=== PATIENT | female | born 1975 | race Caucasian/White ===

== ENCOUNTER 2021-07-10 11:43 | Outpatient (REF) | payer MEDICAID, SELFPAY ==
--- NOTE | ~2021-07-10 | MM_ITS ---
EXAMINATION: MM SCREENING DIGITAL BREAST TOMOSYNTHESIS, BILATERAL CLINICAL INFORMATION: Screening. Asymptomatic. No prior breast imaging. Age 45. The lifetime risk of breast cancer based on the Tyrer-Cuzick Model is 9%. COMPARISON: None (current study represents initial baseline exam). TECHNIQUE: Digital breast tomosynthesis is performed in both the craniocaudal and mediolateral oblique views along with computer-aided detection (CAD). Synthesized 2D images are generated from the tomosynthesis. Additional right cleavage view is provided. Technologist notes technically challenging for positioning. Exam optimized to patient capabilities. FINDINGS: There are scattered areas of fibroglandular density (ACR BI-RADS breast composition Category b). There are no significant masses, abnormal calcifications, or other abnormalities. The axilla and skin contours are unremarkable. MM/MM tomosynthesis screening BI IMPRESSION: No mammographic evidence of malignancy. ASSESSMENT: BI-RADS 1: Negative RECOMMENDATION: Routine annual mammography screening. This patient's information was entered into a reminder system with a target due date for their next mammogram.
== END 2021-07-10 11:44 | disposition home or self-care (01) ==
LOC: HO.MAMMO 11:43
PROVIDERS: Visit Provider Advanced Practice Midwife
DX: Z12.31 Encounter for screening mammogram for malignant neoplasm of breast (principal)
CPT/HCPCS: 77063; 77067

== ENCOUNTER 2022-03-07 08:17 | Inpatient (IN) | payer MEDICAID, SELFPAY ==
[2022-03-07] VITALS (7 sets, daily range): BP systolic 100–144; BP diastolic 45–86; PULSE 95–118; RESP 14–20; TEMP 36–36.9; O2SAT 96–98; BMI 43.2
--- NOTE | ~2022-03-07 | CT_ITS ---
EXAMINATION: CT FACIAL BONES WITH CONTRAST CLINICAL INFORMATION: Right facial/neck swelling. Rule out abscess. COMPARISON: None TECHNIQUE: Multidetector volumetric imaging of the facial bones performed after administration of 85 mL of Omnipaque 350 IV contrast. Coronal and sagittal reformatted images are obtained and reviewed. This CT examination was performed using dose optimization techniques as appropriate, variously including the following: *Automated exposure control *Adjustment of mA and/or kV according to patient size (this includes techniques or standardized protocols for targeted exams where dose is matched to indication/reason for exam; i.e. extremities or head) *Use of iterative reconstruction technique DLP: 772 mGy-cm FINDINGS: There is inflammatory stranding visualized inferior to the mandible. Mild platysma thickening, right greater than left. No fluid collection. There is periapical lucency involving the left mandibular central incisor. This could be small periapical abscess. No maxillofacial fracture. The paranasal sinuses and mastoid air cells are well aerated. The nasal septum deviates to the right. The infundibula and middle meati are patent. The orbits are normal. The extraocular muscles are intact. The visualized intracranial structures show no acute abnormality. CT/CT facial bones w IV con IMPRESSION: 1. Inflammatory stranding visualized inferior to the mandible. No fluid collection. 2. Periapical lucency involving the left mandibular central incisor. This could be a small periapical abscess.
--- NOTE | 2022-03-07 09:55 | ED.DENTAL ---
HPI - Dental/Oral General Chief complaint: Dental/Oral Stated complaint: N/V,ALSO C/O R JAW PAIN S/P ROOT CANAL 2 WKS AGO Time Seen by Provider: 03/07/22 09:38 Source: patient Mode of arrival: ambulatory Limitations: no limitations History of Present Illness HPI Narrative: 46-year-old female who presents emergency department for evaluation of right lower jaw, right face and right sided neck swelling since having a root canal on tooth number 32 done 1 1/2 weeks prior. Patient states that she has had pain in the right side of her jaw since root canal and she has also had swelling. She states that the swelling and pain got worse over the past several days. She states she has a constant, pressure like pain which is greater than 10/10. She states that the swelling has gotten worse and she has also noticed redness of her lower jaw, face and right side of her neck. She had subjective fever and chills at home. She has had nausea with 3 episodes of vomiting over the past 24 hours and 2 loose diarrheal stools over the last 24 hours. She did follow up with her oral surgeon yesterday but she was unable to get an x-ray as she could not open her mouth. She was started on antibiotic but she states that she did not pick up attendant the antibiotic or started. She states that her pain got worse today therefore she came to the emergency department for evaluation. She states that she is allergic to sulfa drugs and penicillins, these medications make her nauseous. Complaint: tooth pain Location: Tooth # (32) Onset (ago): week(s) (1.5) Duration: constant Severity: severe Severity scale (1-10): >10 Relieving factors: nothing Exacerbating factors: nothing Context: history of dental caries (Root canal tooth number 32) Associated symptoms: fever, gum swelling and pain with swallowing (Right jaw, face and neck) Treatment prior to arrival: none Related Data Allergies Allergy/AdvReac Type Severity Reaction Status Date / Time Sulfa (Sulfonamide Allergy Intermediate PUFFY EYES Unverified 03/07/22 09:14 Antibiotics) [SULFA (SULFONAMIDE ANTIBIOTICS)] Penicillins [PENICILLINS] Allergy Mild PT STATES Unverified 03/07/22 09:14 NOTHING HAPPENS, ALLG LISTED ON TRANF SHEET Review of Systems Review of Systems: Yes all other systems are reviewed and are negative PMF Past Medical History PMFSH Narrative: Past medical history: Diabetes mellitus, hypertension. Past surgical history: Tooth number 32 root canal 1.5 weeks prior, wisdom teeth extracted. Social history: Patient smokes 1/2 pack of cigarettes per day times 20 years. She denies alcohol use. She denies drug use. Social History Social History Alcohol intake: never Patient Tobacco Use Status: Current everyday Tobacco user Smoked in Last 30 Days: Yes Use of substances other than those prescribed or required for medical reasons: No Advance Directives: No Advance Directives Information Provided: Yes Physical Exam Vital Signs: Vital Signs: Last Vital Signs Temp 97.7 F 03/07/22 12:56 Pulse 100 03/07/22 13:58 Resp 20 03/07/22 13:58 BP 109/59 L 03/07/22 13:58 Pulse Ox 97 03/07/22 13:58 O2 Del Method 03/07/22 13:58 BMI result Body Mass Index 43.2 Const: Other: Awake, alert, female patient, answers all questions appropriately, does appear to be in distress secondary to facial swelling and HEENT: Other: Patient has swelling to the right face and lower jaw, this area is tender to palpation, she also have swelling of her submandibular gland emesis tender to palpation. She has erythema over the right face jaw and neck bilaterally, the susie thema is warm to the touch. Ears: external ears normal General nose exam: Normal external nose present Mouth: moist mucous membranes abnormal Teeth image: 1. Dental caps 2. Dental shantal 3. Tenderness with no abscess Throat: Yes other (Tenderness palpation over the teeth with a R lower jaw no gingival abscess) Eyes: General: appearance normal, both eyes and all related structures Pupils: Equal, round and reactive pupils present Neck: Other: Erythema the chin down to the neck with tenderness and swelling of the submandibular gland Chest: Chest palpation & inspection: normal inspection of the chest and normal palpation of entire chest wall Resp: Effort & Inspection: normal respiratory effort and able to speak in complete sentences Auscultation: clear to auscultation bilaterally Cardio: Rate: regular rate Rhythm: regular rhythm Heart sounds: S1 normal heart sound present, S2 normal heart sound present and no murmurs GI: Inspection: Yes normal to inspection and Yes obesity Palpation (GI): Soft to palpation, nontender and no guarding Auscultation: normal bowel sounds : General: Yes no CVA tenderness Back/Spine/Pelvis: Back: no CVA tenderness Skin: General skin exam: no rashes or lesions noted Neuro: Cranial nerves: Yes CN's II-XII intact bilaterally and Yes Equal, round and reactive pupils present Cognition (Neuro): normal cognition Motor exam (neuro): 5/5 motor strength present throughout Extrem: General: Yes normal to inspection Psych: Appearance: grossly normal Speech and movement: Normal speech and movement present Affect: normal affect Attitude: cooperative Thought process: Normal thought process present Thought content: Normal thought content present Course Course Course Narrative: 46-year-old female who presents emergency department for evaluation of right sided facial, right jaw and neck swelling x 1.5 week after a root canal on tooth number 32. The pain, swelling and erythema has gotten worse over the past several days and the patient has had subjective fever and chills. She was seen by her oral surgeon yesterday and prescribed antibiotics which she did not stop start yet. The patient's vital signs did reveal an elevated blood pressure of 143/86 and elevated pulse of 117. Patient does have tenderness with palpation of her gingiva on the buccal aspect with no obvious abscess that can be drained. She also has significant dental caries of the teeth of her right lower jaw. Patient's right side of her face and jaw are erythematous, tender and swollen. Patient also has swelling and tenderness with palpation of her submandibular area. I will work the patient up for possible dental abscess verses facial cellulitis. I ordered a CBC, CMP, CRP, ESR, lactic acid, PT INR, PTT, COVID-19, influenza, blood cultures x2. Patient was ordered to get normal saline x1 L and Toradol 30 mg IV for pain. Patient will be treated with clindamycin 600 mg IV. 1337: Laboratory evaluation: WBC elevated 13.2. Glucose elevated 135. CRP elevated 10.65. ESR elevated 59. COVID-19 and influenza negative. Radiology evaluation: CT scan of the face with IV contrast radiology interpretation as follows: IMPRESSION: 1. Inflammatory stranding visualized inferior to the mandible. No fluid collection. 2. Periapical lucency involving the left mandibular central incisor. This could be a small periapical abscess. Dictated By:Reufgio Love MD I did re-evaluate the patient if the above reading and I did see the apical abscess, with gentle pressure I was able to express approximately 2 cc of pus which was sent for culture. At this time I do not think that there is any significant abscess that needs to be drain in the patient's symptoms are consistent with facial cellulitis secondary to a dental infection. I will discuss admission with the covering hospitalist for IV antibiotic treatment. The patient states that her pain did improve slightly with the IV Toradol however her pain is not coming back and she is ordered to get morphine 4 mg IV and Zofran 4 mg IV. 1425: I did discuss the patient's presentation with the covering hospitalist, Dr. Jaguar Renteria. After this discussion, I did order Decadron 6 mg IV and Zosyn 4.5 g IV. I did confirm with the patient that her penicillin allergy is nausea only. The patient will be admitted to the hospital service for further management MDM - Dental/Oral Lab Data Result diagrams: 03/07/22 10:20 03/07/22 10:20 Labs: Lab Results 03/07/22 03/07/22 03/07/22 Range/Units 10:20 10:20 10:20 WBC 13.2 H (4.8-10.8) X10*3/uL RBC 4.35 (4.20-5.50) X10*6/uL Hgb 11.6 L (12.0-16.0) g/dl Hct 36.7 L (37.0-47.0) % MCV 84.4 (80.0-98.0) fL MCH 26.7 L (27.0-33.0) pg MCHC 31.6 (31.0-35.0) g/dl RDW 15.6 (11.0-16.0) % Plt Count 309 (160-400) X10*3/uL MPV 9.1 L (9.4-12.3) fL Immature Gran % (Auto) 0.3 (0.0-0.4) % Neut % (Auto) 71.9 (45-73) % Lymph % (Auto) 20.2 (20-40) % Dougherty % (Auto) 6.8 (2-11) % Eos % (Auto) 0.6 (0-4) % Baso % (Auto) 0.2 (0-2) % Lymph # (Auto) 2.7 (1.2-4.9) X10*3/uL Dougherty # (Auto) 0.9 (0.1-1.2) X10*3/uL Eos # (Auto) 0.1 (0.0-0.4) X10*3/uL Baso # (Auto) 0.0 (0.0-0.2) X10*3/uL Abs Immat Gran (auto) 0.04 H (0.00-0.03) X10*3/uL Absolute Neuts (auto) 9.5 H (2.0-8.3) x10*3/uL Absolute Nucleated RBC 0.000 (0.0-0.012) X10*3/uL Nucleated RBC % (auto) 0.0 (0.0-0.2) /100WBC ESR (0-20) MM/HR PT 12.0 (10.0-13.1) SEC INR 1.0 (0.9-1.1) APTT 31.8 (26.0-36.4) SEC Sodium 143 (135-145) mmol/L Potassium 4.1 (3.3-5.1) mmol/L Chloride 103 (96-108) mmol/L Carbon Dioxide 27 (22-29) mmol/L Anion Gap 17 (12-20) BUN 8 L (9-16) mg/dL Creatinine 0.69 (0.5-1.4) mg/dL Estim Creat Clear Calc 125.0 Estimated GFR > 60 Random Glucose 135 H (60-115) mg/dL Lactic Acid (0.5-2.0) mmol/L Calcium 8.9 (8.4-10.2) mg/dL Total Bilirubin 0.3 (0.0-1.0) mg/dL AST 7 (5-31) U/L ALT 10 (0-31) U/L Alkaline Phosphatase 67 (39-117) U/L C-Reactive Protein 10.65 H (< or = 0.50) mg/dL Total Protein 6.6 (6.5-8.0) g/dL Albumin 4.1 (3.5-5.0) g/dL Lipase 4 L (8-78) U/L COVID-19 (ALYSSA) (Negative) COVID-19 Clin Com Influenza Type A (YANY) (Negative) Influenza Type B (YANY) (Negative) Influenza A & B Note 03/07/22 03/07/22 03/07/22 Range/Units 10:20 10:21 11:41 WBC (4.8-10.8) X10*3/uL RBC (4.20-5.50) X10*6/uL Hgb (12.0-16.0) g/dl Hct (37.0-47.0) % MCV (80.0-98.0) fL MCH (27.0-33.0) pg MCHC (31.0-35.0) g/dl RDW (11.0-16.0) % Plt Count (160-400) X10*3/uL MPV (9.4-12.3) fL Immature Gran % (Auto) (0.0-0.4) % Neut % (Auto) (45-73) % Lymph % (Auto) (20-40) % Dougherty % (Auto) (2-11) % Eos % (Auto) (0-4) % Baso % (Auto) (0-2) % Lymph # (Auto) (1.2-4.9) X10*3/uL Dougherty # (Auto) (0.1-1.2) X10*3/uL Eos # (Auto) (0.0-0.4) X10*3/uL Baso # (Auto) (0.0-0.2) X10*3/uL Abs Immat Gran (auto) (0.00-0.03) X10*3/uL Absolute Neuts (auto) (2.0-8.3) x10*3/uL Absolute Nucleated RBC (0.0-0.012) X10*3/uL Nucleated RBC % (auto) (0.0-0.2) /100WBC ESR 59 H (0-20) MM/HR PT (10.0-13.1) SEC INR (0.9-1.1) APTT (26.0-36.4) SEC Sodium (135-145) mmol/L Potassium (3.3-5.1) mmol/L Chloride (96-108) mmol/L Carbon Dioxide (22-29) mmol/L Anion Gap (12-20) BUN (9-16) mg/dL Creatinine (0.5-1.4) mg/dL Estim Creat Clear Calc Estimated GFR Random Glucose (60-115) mg/dL Lactic Acid 0.9 (0.5-2.0) mmol/L Calcium (8.4-10.2) mg/dL Total Bilirubin (0.0-1.0) mg/dL AST (5-31) U/L ALT (0-31) U/L Alkaline Phosphatase (39-117) U/L C-Reactive Protein (< or = 0.50) mg/dL Total Protein (6.5-8.0) g/dL Albumin (3.5-5.0) g/dL Lipase (8-78) U/L COVID-19 (ALYSSA) (Negative) COVID-19 Clin Com Influenza Type A (YANY) Negative (Negative) Influenza Type B (YANY) Negative (Negative) Influenza A & B Note See Note 03/07/22 Range/Units 11:41 WBC (4.8-10.8) X10*3/uL RBC (4.20-5.50) X10*6/uL Hgb (12.0-16.0) g/dl Hct (37.0-47.0) % MCV (80.0-98.0) fL MCH (27.0-33.0) pg MCHC (31.0-35.0) g/dl RDW (11.0-16.0) % Plt Count (160-400) X10*3/uL MPV (9.4-12.3) fL Immature Gran % (Auto) (0.0-0.4) % Neut % (Auto) (45-73) % Lymph % (Auto) (20-40) % Dougherty % (Auto) (2-11) % Eos % (Auto) (0-4) % Baso % (Auto) (0-2) % Lymph # (Auto) (1.2-4.9) X10*3/uL Dougherty # (Auto) (0.1-1.2) X10*3/uL Eos # (Auto) (0.0-0.4) X10*3/uL Baso # (Auto) (0.0-0.2) X10*3/uL Abs Immat Gran (auto) (0.00-0.03) X10*3/uL Absolute Neuts (auto) (2.0-8.3) x10*3/uL Absolute Nucleated RBC (0.0-0.012) X10*3/uL Nucleated RBC % (auto) (0.0-0.2) /100WBC ESR (0-20) MM/HR PT (10.0-13.1) SEC INR (0.9-1.1) APTT (26.0-36.4) SEC Sodium (135-145) mmol/L Potassium (3.3-5.1) mmol/L Chloride (96-108) mmol/L Carbon Dioxide (22-29) mmol/L Anion Gap (12-20) BUN (9-16) mg/dL Creatinine (0.5-1.4) mg/dL Estim Creat Clear Calc Estimated GFR Random Glucose (60-115) mg/dL Lactic Acid (0.5-2.0) mmol/L Calcium (8.4-10.2) mg/dL Total Bilirubin (0.0-1.0) mg/dL AST (5-31) U/L ALT (0-31) U/L Alkaline Phosphatase (39-117) U/L C-Reactive Protein (< or = 0.50) mg/dL Total Protein (6.5-8.0) g/dL Albumin (3.5-5.0) g/dL Lipase (8-78) U/L COVID-19 (ALYSSA) Negative (Negative) COVID-19 Clin Com See Note Influenza Type A (YANY) (Negative) Influenza Type B (YANY) (Negative) Influenza A & B Note Discharge Plan Discharge Patient Disposition: Admitted As Inpatient
[2022-03-07 10:25] LABS: MANUAL DIFF FLAG NO
[2022-03-07 10:27] LABS: Basophils Percent Auto 0.2 % (0-2); Eosinophils Absolute Auto 0.1 X10*3/uL (0.0-0.4); Eosinophils Percent Auto 0.6 % (0-4); Hematocrit 36.7 % (37.0-47.0); Hemoglobin 11.6 g/dl (12.0-16.0); Imm Gran Abs Auto 0.04 X10*3/uL (0.00-0.03); Imm Gran Pct Auto 0.3 % (0.0-0.4); Lymphocytes Absolute Auto 2.7 X10*3/uL (1.2-4.9); Lymphocytes Percent Auto 20.2 % (20-40); Mean Corpuscular HGB Conc 31.6 g/dl (31.0-35.0); Mean Corpuscular Hemoglobin 26.7 pg (27.0-33.0); Mean Corpuscular Volume 84.4 fL (80.0-98.0); Mean Platelet Volume 9.1 fL (9.4-12.3); Monocytes Absolute Auto 0.9 X10*3/uL (0.1-1.2); Monocytes Percent Auto 6.8 % (2-11); Neutrophils Absolute Auto 9.5 x10*3/uL (2.0-8.3); Neutrophils Percent Auto 71.9 % (45-73); Platelet Count 309 X10*3/uL (160-400); Red Blood Count 4.35 X10*6/uL (4.20-5.50); Red Cell Distribution Width 15.6 % (11.0-16.0); White Blood Count 13.2 X10*3/uL (4.8-10.8)
[2022-03-07] MEDS: Ketorolac Tromethamine 15 MG/ML VIAL 30 MG IVPUSH (10:33)
[2022-03-07] MEDS: ondansetron HCL 4 MG/2 ML VIAL IVPUSH ×2 (10:34→14:03)
[2022-03-07 10:36] LABS: Partial Thromboplastin Time 31.8 SEC (26.0-36.4)
[2022-03-07 10:37] LABS: Lactic Acid 0.9 mmol/L (0.5-2.0)
[2022-03-07] MEDS: Clindamycin Phosphate/D5W 600 MG/50 ML PIGGYBACK 100 MG IV (10:43)
[2022-03-07] MEDS: 0.9 % Sodium Chloride 1,000 ML 999 ML IV (10:43)
[2022-03-07 10:46] LABS: Alanine Aminotransferase 10 U/L (0-31); Albumin Level 4.1 g/dL (3.5-5.0); Alkaline Phosphatase 67 U/L (39-117); Anion Gap 17 (12-20); Aspartate Amino Transferase 7 U/L (5-31); Bilirubin Total 0.3 mg/dL (0.0-1.0); Blood Urea Nitrogen 8 mg/dL (9-16); C Reactive Protein 10.65 mg/dL (< or = 0.50); Calcium 8.9 mg/dL (8.4-10.2); Carbon Dioxide 27 mmol/L (22-29); Chloride 103 mmol/L (96-108); Estimated Glomerular Filt Rate > 60; Glucose Random 135 mg/dL (60-115); Lipase 4 U/L (8-78); Potassium 4.1 mmol/L (3.3-5.1); Sodium 143 mmol/L (135-145); Total Protein 6.6 g/dL (6.5-8.0)
[2022-03-07 11:11] LABS: Erythrocyte Sedimentation Rate 59 MM/HR (0-20)
[2022-03-07] MEDS: iohexoL 350 MG/ML 100 ML INFUS..BTL IV (11:29)
[2022-03-07 12:22] LABS: COVID-19 Test Negative (Negative); IDNOW Serial# 16C4AD1C; Influenza A Negative (Negative); Influenza B2 Negative (Negative)
[2022-03-07] MEDS: Morphine Sulfate 4 MG/ML CARTRIDGE IVPUSH (14:02)
[2022-03-07] MEDS: dexAMETHasone sod phosphate 4 MG/ML VIAL 6 MG IVPUSH (14:43)
[2022-03-07] MEDS: Piperacillin Sodium/Tazobactam 4.5 GM in 0.9 % Sodium Chloride 100 ML IV ×2 (14:43→20:52)
[2022-03-07] MEDS: Lactated Ringers 1,000 ML 125 ML IVCONT (15:05)
--- NOTE | 2022-03-07 15:45 | PM.IMHP ---
History of Present Illness Date of Service: 03/07/22 Attending physician on admission: Jaguar Renteria Chief Complaint: right facial cellulitis/pain 46 y/o f with dm,htn-came to ED because of right lower jaw, right face and right sided neck swelling since having a root canal on tooth number 32 (1 1/2 weeks prior ).?she has had pain in the right side of her jaw since root canal and swelling which is getting worse for few days.? From last few days she was feeling current constant throbbing pain in jaw right-sided, pain was 10/10, a swelling and pain was getting worse also had some redness around the right mandibular as well as slight on the facial area on the right side also, and minimal swelling on the upper neck . She denies any fever or chills or headache or blurry vision or weakness or numbness. ?She has had nausea with 3 episodes of vomiting over the past 24 hours and 2 loose diarrheal stools over the last 24 hours.? She did follow up with her oral surgeon yesterday but she was unable to get an x-ray as she could not open her mouth.? 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 She states that her pain got worse today therefore she came to the emergency department for evaluation. Lab imaging reviewed: WBC 13.2 Sodium 143 BUN 8 creatinine 0.69 ESR 59, CRP 10.65 CT/CT facial bones w IV con IMPRESSION: 1.? Inflammatory stranding visualized inferior to the mandible. No fluid collection. 2.? Periapical lucency involving the left mandibular central incisor. This could be a small periapical abscess. Patient says that she does not have allergy to tensely she feel nauseated, already received Zosyn in the ED and tolerated well. Also received dexamethasone. Review of Systems Review of Systems: Denies any new complaint of chest pain or shortness of breath or abdominal pain or fever or chills Denies any cough Denies any weakness or numbness. has mild nausea ,no vomiting since came. [facility] Medical History (Updated 03/07/22 @ 16:05 by Jaguar Renteria MD) Diabetes HTN (hypertension) Pertinent family history: denies any family hx of dm ,htn Social History Alcohol intake: never Patient Tobacco Use Status: Current everyday Tobacco user Smoked in Last 30 Days: Yes Use of substances other than those prescribed or required for medical reasons: No Advance Directives: No Advance Directives Information Provided: Yes Meds Allergies Allergy/AdvReac Type Severity Reaction Status Date / Time Sulfa (Sulfonamide Allergy Intermediate PUFFY EYES Unverified 03/07/22 09:14 Antibiotics) [SULFA (SULFONAMIDE ANTIBIOTICS)] Penicillins [PENICILLINS] Allergy Mild PT STATES Unverified 03/07/22 09:14 NOTHING HAPPENS, ALLG LISTED ON TRANF SHEET Active Medications: Current Medications Dextrose (Dextrose 50 % 25 Gm/50 Ml Syringe) 25 gm IVPUSH Q15M PRN; Protocol PRN Reason: per Hypoglycemia Standing Ord. Enoxaparin Sodium (Enoxaparin Sodium 40 Mg/0.4 Ml Syringe) 40 mg SUBCUT DAILY [facility] Glucose (Glucose Gel 15 Gm Gel..Gram.) 15 gm PO Q15M PRN; Protocol PRN Reason: per Hypoglycemia Standing Ord. Lactated Ringer's (Lr) 1,000 mls @ 125 mls/hr IVCONT .Q8H [facility] Last Admin: 03/07/22 15:05 Dose: 125 mls/hr Piperacillin Sod/Tazobactam (Sod 4.5 gm/ Sodium Chloride) 100 mls @ 200 mls/hr IV Q6H [facility] Insulin Human Lispro (Insulin Lispro 100 Unit/Ml 3 Ml Vial) 0 unit SUBCUT QIDACHS [facility]; Protocol Pharmacy Consult (Consult Rx Perform Med Rec) 1 each MISCELLANE ONCE PRN PRN Reason: Consult order Sodium Chloride (0.9 % Sodium Chloride Flush 3 Ml Syringe) 3 ml IVFLUSH QSHIFT [facility] Home Medications Medication Instructions Recorded Confirmed Last Taken Type ascorbic acid (vitamin C) 500 mg 1 tab PO BID 03/07/22 03/07/22 03/07/22 History tablet (Vitamin C) benztropine 1 mg tablet 1 tab PO BID 03/07/22 03/07/22 03/07/22 History clonazepam 0.5 mg tablet 1 tab PO DAILY 03/07/22 03/07/22 03/07/22 History clozapine 100 mg tablet 3 tab PO BEDTIME 03/07/22 03/07/22 03/06/22 History clozapine 25 mg tablet 2 tab PO DAILY 03/07/22 03/07/22 03/07/22 History divalproex 500 mg tablet,extended 2 tab PO BEDTIME 03/07/22 03/07/22 03/06/22 History release 24 hr dulaglutide 1.5 mg/0.5 mL 0.5 ml subcut WE@0900 03/07/22 03/07/22 03/07/22 History subcutaneous pen injector (Trulicity) ferrous sulfate 325 mg (65 mg 325 mg PO BID 03/07/22 03/07/22 03/07/22 History iron) tablet insulin glargine 100 unit/mL (3 70 unit subcut BEDTIME 03/07/22 03/07/22 03/06/22 History mL) subcutaneous pen (Lantus Solostar U-100 Insulin) insulin lispro 100 unit/mL See Protocol subcut 03/07/22 03/07/22 03/07/22 History subcutaneous pen TID@0800,1200,1600 lisinopril 2.5 mg tablet 1 tab PO DAILY 03/07/22 03/07/22 03/07/22 History metformin 500 mg tablet,extended 2 tab PO BID 03/07/22 03/07/22 03/07/22 History release 24 hr metoprolol tartrate 25 mg tablet 1 tab PO BID 03/07/22 03/07/22 03/07/22 History omeprazole 20 mg capsule,delayed 1 cap PO DAILY@0630 03/07/22 03/07/22 03/07/22 History release perphenazine 4 mg tablet 1 tab PO BID 03/07/22 03/07/22 03/07/22 History sertraline 100 mg tablet 1 tab PO DAILY 03/07/22 03/07/22 03/07/22 History Physical Exam Vital Signs and Narrative: Vital Signs: Last Vital Signs Temp 97.7 F 03/07/22 12:56 Pulse 100 03/07/22 13:58 Resp 20 03/07/22 13:58 BP 109/59 L 03/07/22 13:58 Pulse Ox 97 03/07/22 13:58 O2 Del Method 03/07/22 13:58 BMI result Body Mass Index 43.2 Appearance: Alert.? Oriented X3.? not in distress.? Eyes: Pupils equal, round and reactive to light.? Sclera nonicteric.? ENT: right mandibular swelling /erythema ,poor oral hygene -tooth right sided mild erythema. neck supple,mild swelling upper neck ,no pain cvs: rrr, [id number] . res: clear to auscultation ,no rhonchii or wheezing abd: no rebound or guarding ,nt, bs present. ext pulses present , no cyanosis. neuro: axo3 , nonfocal. Results Labs CBC and Chem 7: 03/07/22 10:03/07/22 10:20 Labs: Laboratory Results - last 24 hr 03/07/22 03/07/22 03/07/22 10:20 10:20 10:20 MCV 84.4 MCH 26.7 L MCHC 31.6 RDW 15.6 Plt Count 309 MPV 9.1 L Immature Gran % (Auto) 0.3 Neut % (Auto) 71.9 Lymph % (Auto) 20.2 [place] % (Auto) 6.8 Eos % (Auto) 0.6 Baso % (Auto) 0.2 Lymph # (Auto) 2.7 [place] # (Auto) 0.9 Eos # (Auto) 0.1 Baso # (Auto) 0.0 Abs Immat Gran (auto) 0.04 H Absolute Neuts (auto) 9.5 H Absolute Nucleated RBC 0.000 Nucleated RBC % (auto) 0.0 ESR PT 12.0 INR 1.0 APTT 31.8 Anion Gap 17 Estim Creat Clear Calc 125.0 Estimated GFR > 60 Random Glucose 135 H Lactic Acid Calcium 8.9 Total Bilirubin 0.3 AST 7 ALT 10 Alkaline Phosphatase 67 C-Reactive Protein 10.65 H Total Protein 6.6 Albumin 4.1 Lipase 4 L COVID-19 ([facility]) COVID-19 Clin Com Influenza Type A (YANY) Influenza Type B (YANY) Influenza A & B Note 03/07/22 03/07/22 03/07/22 10:20 10:21 11:41 MCV MCH MCHC RDW Plt Count MPV Immature Gran % (Auto) Neut % (Auto) Lymph % (Auto) [place] % (Auto) Eos % (Auto) Baso % (Auto) Lymph # (Auto) [place] # (Auto) Eos # (Auto) Baso # (Auto) Abs Immat Gran (auto) Absolute Neuts (auto) Absolute Nucleated RBC Nucleated RBC % (auto) ESR 59 H PT INR APTT Anion Gap Estim Creat Clear Calc Estimated GFR Random Glucose Lactic Acid 0.9 Calcium Total Bilirubin AST ALT Alkaline Phosphatase C-Reactive Protein Total Protein Albumin Lipase COVID-19 ([facility]) COVID-19 Clin Com Influenza Type A (YANY) Negative Influenza Type B (YANY) Negative Influenza A & B Note See Note 03/07/22 11:41 MCV MCH MCHC RDW Plt Count MPV Immature Gran % (Auto) Neut % (Auto) Lymph % (Auto) [place] % (Auto) Eos % (Auto) Baso % (Auto) Lymph # (Auto) [place] # (Auto) Eos # (Auto) Baso # (Auto) Abs Immat Gran (auto) Absolute Neuts (auto) Absolute Nucleated RBC Nucleated RBC % (auto) ESR PT INR APTT Anion Gap Estim Creat Clear Calc Estimated GFR Random Glucose Lactic Acid Calcium Total Bilirubin AST ALT Alkaline Phosphatase C-Reactive Protein Total Protein Albumin Lipase COVID-19 ([facility]) Negative COVID-19 Clin Com See Note Influenza Type A ([facility]ANY) Influenza Type B (YANY) Influenza A & B Note Imaging Radiologist's Impressions: Impressions Face CT 03/07/22 11:36 IMPRESSION: 1. Inflammatory stranding visualized inferior to the mandible. No fluid collection. 2. Periapical lucency involving the left mandibular central incisor. This could be a small periapical abscess. Assessment and Plan (1) Poor oral hygiene: Status: Acute (2) HTN (hypertension): Status: Acute (3) Diabetes: Status: Acute (4) Dental infection: Status: Acute (5) Cellulitis of face: Status: Acute Plan 46 y/o f with dm,htn-came to ED because of right lower jaw, right face and right sided neck swelling -Ed physician did apical abscess, with gentle pressure ED was able to express approximately 2 cc of pus which was sent for culture. 1. Facial/dental cellulitis: She was seen by her oral surgeon yesterday and prescribed antibiotics which she did not stop start yet.? Ct scan reviewed with radiology-seems more likely cellulitis than any abcess or airways issues. Denies any respiratory complaints or any swallowing problem but has nausea and also vomiting so unable to tolerate currently p.o. antibiotics Has leukocytosis, tachycardia-qualify for sepsis. Sepsis exam completed. ESR, CRP elevated, blood culture sent Continue IV antibiotic Zosyn and gentle hydration, will also add small doses IV pain medication. Id evaluation 2. Diabetes mellitus type 2: Medical reconciliation is pending Will add fingerstick with sliding scale coverage Considering facial cellulitis will start her on clear liquid for now 3. Hypertension blood pressure is borderline will hold blood pressure medications for now Monitor blood pressure closely 4. Morbid obesity: Strongly encouraged to lose weight. 5. Nausea vomiting and diarrhea: Vomiting and diarrhea seems to be improved will add stool studies just in case if has another diarrhea episode. Gentle hydration, antiemetic. Considering sepsis with facial cellulitis -patient will need IV antibiotics and hydration, unable to take p.o. antibiotics currently. Also need to monitoring for facial cellulitis. Above management discussed with the patient in detail length she understand and in agreement with the plan, time spent 70 minute, patient full code. Quality Stroke Does the patient have a stroke diagnosis?: No VTE Prior VTE?: No VTE Risk Level:: Medical - moderate - high VTE Device Contraindication: N/A - Device Ordered VTE Drug Contraindication: N/A - Med Ordered
--- NOTE | 2022-03-07 16:17 | PHA.MEDREC ---
Pharmacy Consult ? Medication Reconciliation Pharmacy has completed the medication reconciliation. Spoke with patient in the ED... patient last took medications this morning, including clozaril.
[2022-03-07 17:28] LABS: Glucose, Whole Blood 198 mg/dL (60-115)
[2022-03-07] MEDS: Insulin Lispro 100 UNIT/ML 3 ML VIAL SUBCUT ×2 (17:30→21:00)
[2022-03-07] MEDS: Enoxaparin Sodium 40 MG/0.4 ML SYRINGE SUBCUT (17:30)
[2022-03-07 20:33] LABS: Appearance Urine Clear; Color Urine Yellow; Glucose Urine UA Negative (Negative); Leukocyte Esterase Urine Negative (Negative); Nitrite Urine Negative (Negative); Specific Gravity - Urine <= 1.005 (1.005-1.025); Urine Blood Negative (Negative); Urine Ketones Negative (Negative); Urine Protein Negative (Neg-Trace)
[2022-03-07 20:34] LABS: Glucose, Whole Blood 251 mg/dL (60-115)
--- NOTE | 2022-03-07 20:34 | PC.NURSE ---
POC 251. Pyxis out of insuling and clozapine. Called pharmacy and they will deliver. Med administration delayed.
[2022-03-07 20:36] LABS: Bacteria Urine None Seen (None Seen); Hyaline Casts Urine 0-2 /LPF (0-2); RBC Urine 0-2 /HPF (0-2); Squamous Epithelial Cell Urine 0-2 /HPF (0-2); WBC Urine 0-5 /HPF (0-5)
[2022-03-07] MEDS: Divalproex Sodium ER 500 MG TAB.ER.24H 1000 MG PO (20:49)
[2022-03-07] MEDS: Insulin Glargine,Hum.rec.anlog 100 UNIT/ML 10 ML VIAL 40 UNIT SUBCUT (20:50)
[2022-03-07] MEDS: cloZAPine 100 MG TABLET 300 MG PO (20:54)
[2022-03-08] VITALS (9 sets, daily range): BP systolic 89–144; BP diastolic 49–69; PULSE 82–99; RESP 12–19; TEMP 35.9–36.7; O2SAT 96–100; BMI 43.1
[2022-03-08] MEDS: Lactated Ringers 1,000 ML 125 ML IVCONT ×3 (01:50→23:55)
[2022-03-08] MEDS: Piperacillin Sodium/Tazobactam 4.5 GM in 0.9 % Sodium Chloride 100 ML IV ×4 (02:02→19:30)
[2022-03-08 04:46] LABS: Hematocrit 33.3 % (37.0-47.0); Hemoglobin 10.5 g/dl (12.0-16.0); Mean Corpuscular HGB Conc 31.5 g/dl (31.0-35.0); Mean Corpuscular Hemoglobin 26.8 pg (27.0-33.0); Mean Corpuscular Volume 84.9 fL (80.0-98.0); Mean Platelet Volume 9.1 fL (9.4-12.3); Platelet Count 300 X10*3/uL (160-400); Red Blood Count 3.92 X10*6/uL (4.20-5.50); Red Cell Distribution Width 15.4 % (11.0-16.0)
[2022-03-08 05:03] LABS: Anion Gap 18 (12-20); Blood Urea Nitrogen 10 mg/dL (9-16); Calcium 8.8 mg/dL (8.4-10.2); Carbon Dioxide 24 mmol/L (22-29); Chloride 105 mmol/L (96-108); Creatinine Clr Calc Pharmacy 113.4; Estimated Glomerular Filt Rate > 60; Glucose Random 180 mg/dL (60-115); Potassium 4.6 mmol/L (3.3-5.1); Sodium 142 mmol/L (135-145)
[2022-03-08 08:14] LABS: Glucose, Whole Blood 152 mg/dL (60-115)
--- NOTE | 2022-03-08 08:35 | P.PNIM_ITS ---
Subjective Subjective Date of Service: 03/08/22 Interval History: Facial cellulitis, Gram-positive bacteremia Review of Systems Still has mandibular swelling and pain and erythema-somewhat improving Denies any chest pain or shortness of breath or abdominal pain or any problems swallowing. Physical Exam Vital Signs: Vital Signs: Last Vital Signs Temp 97.0 F 03/08/22 03:55 Pulse 82 03/08/22 03:55 Resp 16 03/08/22 03:55 BP 107/53 L 03/08/22 03:55 Pulse Ox 97 03/08/22 03:55 O2 Del Method 03/08/22 03:55 BMI result Body Mass Index 43.2 Appearance: Alert.? Oriented X3.? not in distress.? right mandibular swelling /erythema ,poor oral hygene -tooth right sided mild erythema. neck supple,mild swelling upper neck ,no pain cvs: rrr, [id number] . res: clear to auscultation ,no rhonchii or wheezing,no stridor abd: no rebound or guarding ,nt, bs present. ext pulses present , no cyanosis. neuro: axo3 , nonfocal. Objective Data Active Medications Clonazepam (Clonazepam 0.5 Mg Tablet) 0.5 mg PO DAILY [facility] Clozapine (Clozapine 100 Mg Tablet) 300 mg PO BEDTIME [facility] Last Admin: 03/07/22 20:54 Dose: 300 mg Documented By: ARCHIE Clozapine (Clozapine 25 Mg Tablet) 50 mg PO DAILY [facility] Dextrose (Dextrose 50 % 25 Gm/50 Ml Syringe) 25 gm IVPUSH Q15M PRN; Protocol PRN Reason: per Hypoglycemia Standing Ord. Divalproex Sodium (Divalproex Sodium Er 500 Mg Tab.Er.24h) 1,000 mg PO BEDTIME [facility] Last Admin: 03/07/22 20:49 Dose: 1,000 mg Documented By: ARCHIE Enoxaparin Sodium (Enoxaparin Sodium 40 Mg/0.4 Ml Syringe) 40 mg SUBCUT Q24H [facility] Last Admin: 03/07/22 17:30 Dose: 40 mg Documented By: JORDON Glucose (Glucose Gel 15 Gm Gel..Gram.) 15 gm PO Q15M PRN; Protocol PRN Reason: per Hypoglycemia Standing Ord. Lactated Ringer's (Lr) 1,000 mls @ 125 mls/hr IVCONT .Q8H [facility] Last Admin: 10/20/22 01:50 Dose: 125 mls/hr Documented By: ARCHIE Piperacillin Sod/Tazobactam (Sod 4.5 gm/ Sodium Chloride) 100 mls @ 200 mls/hr IV Q6H [facility] Last Infusion: 03/08/22 03:36 Dose: 0 mls/hr Documented By: ARCHIE Insulin Glargine (Insulin Glargine,Hum.Rec.Anlog 100 Unit/Ml 10 Ml Vial) 40 unit SUBCUT BEDTIME [facility] Last Admin: 03/07/22 20:50 Dose: 40 unit Documented By: ARCHIE Insulin Human Lispro (Insulin Lispro 100 Unit/Ml 3 Ml Vial) 0 unit SUBCUT QIDACHS [facility]; Protocol Last Admin: 03/07/22 21:00 Dose: 6 unit Documented By: ARCHIE Morphine Sulfate (Morphine Sulfate 2 Mg/Ml Cartridge) 1 mg IVPUSH Q2H PRN; Protocol PRN Reason: pain Ondansetron HCl (Ondansetron Hcl 4 Mg/2 Ml Vial) 4 mg IVPUSH Q8H PRN PRN Reason: Nausea and Vomiting Pharmacy Consult (Consult Rx Perform Med Rec) 1 each MISCELLANE ONCE PRN PRN Reason: Consult order Sertraline HCl (Sertraline Hcl 100 Mg Tablet) 100 mg PO DAILY [facility] Sodium Chloride (0.9 % Sodium Chloride Flush 3 Ml Syringe) 3 ml IVFLUSH QSHIFT [facility] Last Admin: 03/08/22 01:50 Dose: Not Given Documented By: ARCHIE Non-Admin Reason: IV Running Labs CBC & Chem 7: 03/08/22 04:32 03/08/22 04:32 Labs: Laboratory Results - last 24 hr 03/07/22 03/07/22 03/07/22 10:20 10:20 10:20 MCV 84.4 MCH 26.7 L MCHC 31.6 RDW 15.6 Plt Count 309 MPV 9.1 L Immature Gran % (Auto) 0.3 Neut % (Auto) 71.9 Lymph % (Auto) 20.2 [place] % (Auto) 6.8 Eos % (Auto) 0.6 Baso % (Auto) 0.2 Lymph # (Auto) 2.7 [place] # (Auto) 0.9 Eos # (Auto) 0.1 Baso # (Auto) 0.0 Abs Immat Gran (auto) 0.04 H Absolute Neuts (auto) 9.5 H Absolute Nucleated RBC 0.000 Nucleated RBC % (auto) 0.0 ESR PT 12.0 INR 1.0 APTT 31.8 Anion Gap 17 Estim Creat Clear Calc 125.0 Estimated GFR > 60 POC Glucose Random Glucose 135 H Lactic Acid Calcium 8.9 Total Bilirubin 0.3 AST 7 ALT 10 Alkaline Phosphatase 67 C-Reactive Protein 10.65 H Total Protein 6.6 Albumin 4.1 Lipase 4 L Urine Color Urine Appearance Urine pH Ur Specific [place] Urine Protein Urine Glucose (UA) Urine Ketones Urine Blood Urine Nitrite Ur Leukocyte Esterase Urine RBC Urine WBC Ur Squamous Epith Cells Urine Bacteria Hyaline Casts COVID-19 ([facility]) COVID-19 Clin Com Influenza Type A ([facility]) Influenza Type B ([facility]) Influenza A & B Note 03/07/22 03/07/22 03/07/22 10:20 10:21 11:41 MCV MCH MCHC RDW Plt Count MPV Immature Gran % (Auto) Neut % (Auto) Lymph % (Auto) [place] % (Auto) Eos % (Auto) Baso % (Auto) Lymph # (Auto) [place] # (Auto) Eos # (Auto) Baso # (Auto) Abs Immat Gran (auto) Absolute Neuts (auto) Absolute Nucleated RBC Nucleated RBC % (auto) ESR 59 H PT INR APTT Anion Gap Estim Creat Clear Calc Estimated GFR POC Glucose Random Glucose Lactic Acid 0.9 Calcium Total Bilirubin AST ALT Alkaline Phosphatase C-Reactive Protein Total Protein Albumin Lipase Urine Color Urine Appearance Urine pH Ur Specific [place] Urine Protein Urine Glucose (UA) Urine Ketones Urine Blood Urine Nitrite Ur Leukocyte Esterase Urine RBC Urine WBC Ur Squamous Epith Cells Urine Bacteria Hyaline Casts COVID-19 ([facility]) COVID-19 Clin Com Influenza Type A ([facility]) Negative Influenza Type B ([facility]) Negative Influenza A & B Note See Note 03/07/22 03/07/22 03/07/22 11:41 17:25 20:27 MCV MCH MCHC RDW Plt Count MPV Immature Gran % (Auto) Neut % (Auto) Lymph % (Auto) [place] % (Auto) Eos % (Auto) Baso % (Auto) Lymph # (Auto) [place] # (Auto) Eos # (Auto) Baso # (Auto) Abs Immat Gran (auto) Absolute Neuts (auto) Absolute Nucleated RBC Nucleated RBC % (auto) ESR PT INR APTT Anion Gap Estim Creat Clear Calc Estimated GFR POC Glucose 198 H Random Glucose Lactic Acid Calcium Total Bilirubin AST ALT Alkaline Phosphatase C-Reactive Protein Total Protein Albumin Lipase Urine Color Yellow Urine Appearance Clear Urine pH 7.0 Ur Specific [place] <= 1.005 Urine Protein Negative Urine Glucose (UA) Negative Urine Ketones Negative Urine Blood Negative Urine Nitrite Negative Ur Leukocyte Esterase Negative Urine RBC 0-2 Urine WBC 0-5 Ur Squamous Epith Cells 0-2 Urine Bacteria None Seen Hyaline Casts 0-2 COVID-19 ([facility]) Negative COVID-19 Clin Com See Note Influenza Type A ([facility]) Influenza Type B ([facility]) Influenza A & B Note 03/07/22 03/08/22 03/08/22 20:29 04:32 04:32 MCV 84.9 MCH 26.8 L MCHC 31.5 RDW 15.4 Plt Count 300 MPV 9.1 L Immature Gran % (Auto) Neut % (Auto) Lymph % (Auto) [place] % (Auto) Eos % (Auto) Baso % (Auto) Lymph # (Auto) [place] # (Auto) Eos # (Auto) Baso # (Auto) Abs Immat Gran (auto) Absolute Neuts (auto) Absolute Nucleated RBC 0.000 Nucleated RBC % (auto) 0.0 ESR PT INR APTT Anion Gap 18 Estim Creat Clear Calc 113.4 Estimated GFR > 60 POC Glucose 251 H Random Glucose 180 H Lactic Acid Calcium 8.8 Total Bilirubin AST ALT Alkaline Phosphatase C-Reactive Protein Total Protein Albumin Lipase Urine Color Urine Appearance Urine pH Ur Specific [place] Urine Protein Urine Glucose (UA) Urine Ketones Urine Blood Urine Nitrite Ur Leukocyte Esterase Urine RBC Urine WBC Ur Squamous Epith Cells Urine Bacteria Hyaline Casts COVID-19 ([facility]) COVID-19 Clin Com Influenza Type A ([facility]) Influenza Type B ([facility]) Influenza A & B Note 03/08/22 08:10 MCV MCH MCHC RDW Plt Count MPV Immature Gran % (Auto) Neut % (Auto) Lymph % (Auto) [place] % (Auto) Eos % (Auto) Baso % (Auto) Lymph # (Auto) [place] # (Auto) Eos # (Auto) Baso # (Auto) Abs Immat Gran (auto) Absolute Neuts (auto) Absolute Nucleated RBC Nucleated RBC % (auto) ESR PT INR APTT Anion Gap Estim Creat Clear Calc Estimated GFR POC Glucose 152 H Random Glucose Lactic Acid Calcium Total Bilirubin AST ALT Alkaline Phosphatase C-Reactive Protein Total Protein Albumin Lipase Urine Color Urine Appearance Urine pH Ur Specific [place] Urine Protein Urine Glucose (UA) Urine Ketones Urine Blood Urine Nitrite Ur Leukocyte Esterase Urine RBC Urine WBC Ur Squamous Epith Cells Urine Bacteria Hyaline Casts COVID-19 ([facility]) COVID-19 Clin Com Influenza Type A ([facility]) Influenza Type B ([facility]) Influenza A & B Note Microbiology Microbiology Results: Microbiology 03/07/22 14:04 Gram Stain - Final Mouth Assessment and Plan (1) Sepsis: Status: Acute (2) Poor oral hygiene: Status: Acute (3) Diabetes: Status: Acute (4) Dental infection: Status: Acute (5) Cellulitis of face: Status: Acute (6) Gram-positive bacteremia: Status: Acute Plan 46 y/o f with dm,htn-came to ED because of? right lower jaw, right face and right sided neck swelling -Ed physician did apical abscess, with gentle pressure ED was able to express approximately 2 cc of pus which was sent for culture. 1. sepsis sec Facial/dental? cellulitis: She was seen by her oral surgeon yesterday and prescribed antibiotics which she did not stop start yet.? Ct scan reviewed with radiology-seems more likely cellulitis than any abcess or airways issues. Denies any respiratory complaints or any swallowing problem but has nausea and also vomiting so unable to tolerate currently p.o. antibiotics Has leukocytosis, tachycardia-qualify for sepsis. Sepsis exam completed. ESR, CRP elevated, blood culture postive-gram positive cocci in cluster 1/2. Continue IV antibiotic Zosyn and gentle hydration, IV pain medication, added vanco. vanco trough added echo Id evaluation 2. Diabetes mellitus type 2: continue lantus Will add fingerstick with sliding scale coverage Considering facial cellulitis dm diet-soft consistency 3. Hypertension blood pressure is borderline will hold blood pressure medications for now Monitor blood pressure closely 4. Morbid obesity: Strongly encouraged to lose weight. 5. Nausea vomiting and diarrhea:? Vomiting and diarrhea seems to be improved wi ll add stool studies just in case if has another diarrhea episode. Gentle hydration, antiemetic. Considering sepsis with facial cellulitis,bacteremia -patient will need IV antibiotics and hydration, unable to take p.o. antibiotics currently.? Also need to monitoring for facial cellulitis. Quality Stroke Does the patient have a stroke diagnosis?: No VTE Prior VTE?: No VTE Risk Level:: Medical - moderate - high VTE Device Contraindication: N/A - Device Ordered VTE Drug Contraindication: N/A - Med Ordered
--- NOTE | 2022-03-08 11:07 | PC.NURSE ---
pt arrives to overflow unit at this time. aox3 speaking in full clear sentences. pt will be in room 4.
[2022-03-08] MEDS: cloZAPine 25 MG TABLET 50 MG PO (11:17)
[2022-03-08] MEDS: clonazePAM 0.5 MG TABLET PO (11:17)
[2022-03-08] MEDS: Sertraline HCL 100 MG TABLET PO (11:17)
[2022-03-08 11:50] LABS: Glucose, Whole Blood 144 mg/dL (60-115)
--- NOTE | 2022-03-08 14:12 | PHA.PROG ---
Admission Date/Time: March 07, 2022 15:35 Indication: Cellulitis Weight in k.305 kg Adjusted body weight in K.5 kg [place] body weight in K.7 kg Obesity Dosing Indication % IBW: 209% Serum Creatinine - Last 168 Hours 03/07/22 03/08/22 10:20 04:32 Creatinine 0.69 0.76 Estimated CrCl and GFR - Last 168 Hours 03/07/22 03/08/22 10:20 04:32 Estim Creat Clear Calc 125.0 113.4 Estimated GFR > 60 > 60 Vancomycin Loading Dose: 2000 mg Current Vancomycin Dosing Regimen: 1250 mg Q12H Date and Time for next Vancomycin Level to be drawn: 03/09 @ 1200 Pharmacist Comments on Vancomycin Plan: Patient is morbidly obese and requires carefully monitor as vancomycin can be unpredicatable in obese patients Patient to receive a loading vancomycin 2000 mg. Maitenance dose vancomycin 1250 mg Q12H is schedule to start 03/09 @ 0200. Expected AUC 588 with a trough of 16.8. Trough to be drawn prior to 3rd dose to allow for in house pharmacy to evaluated and adjust if needed Pharmacy to monitor renal function daily. Jenna Mitchell, Lola Vancomycin dosing will take advantage of UpOut as a clinical decision support tool that uses Bayesian modeling to calculate individual patient's pharmacokinetic parameters and forecast the patient's drug concentration time course with the target goal AUC 24 range of 400 - 600 mg/L/hr.
--- NOTE | 2022-03-08 14:18 | PC.NURSE ---
pt refuse to change linen and hospital gown x2 .
--- NOTE | 2022-03-08 15:40 | PC.NURSE ---
chd worker updated
[2022-03-08] MEDS: Enoxaparin Sodium 40 MG/0.4 ML SYRINGE SUBCUT (16:01)
[2022-03-08 17:08] LABS: Glucose, Whole Blood 146 mg/dL (60-115)
--- NOTE | 2022-03-08 18:58 | MHC.CM.PN ---
CM met with admitted patient in ED overflow with bed assignment pending. A&Ox3. Lives in custodial- schizophrenia. Has roommates. Attends day program at [facility] in [place]. senior care provides transportation to doctor visits. . Pt uses no DME. Vax x3, but patient cannot remember activity assistant. Pt declines HCP at this time. D/C plan: home without services. Continue mental health services and day program. Call custodial for transport at discharge ([phone]). CM to follow for d/c planning.
[2022-03-08] MEDS: Morphine Sulfate 2 MG/ML CARTRIDGE 1 MG IVPUSH (19:29)
[2022-03-08 20:24] LABS: Glucose, Whole Blood 214 mg/dL (60-115)
[2022-03-08] MEDS: Insulin Glargine,Hum.rec.anlog 100 UNIT/ML 10 ML VIAL 40 UNIT SUBCUT (20:48)
[2022-03-08] MEDS: Divalproex Sodium ER 500 MG TAB.ER.24H 1000 MG PO (20:48)
[2022-03-08] MEDS: Insulin Lispro 100 UNIT/ML 3 ML VIAL SUBCUT (20:48)
[2022-03-08] MEDS: cloZAPine 100 MG TABLET 300 MG PO (20:48)
[2022-03-09] MEDS: Piperacillin Sodium/Tazobactam 4.5 GM in 0.9 % Sodium Chloride 100 ML IV ×4 (01:16→19:37)
[2022-03-09] MEDS: vancomycin HCL 1,250 MG in 0.9 % Sodium Chloride 250 ML 166.67 MG IV (01:46)
[2022-03-09 04:00] VITALS: BP 133/64; PULSE 90; RESP 19; TEMP 36.4; O2SAT 95
--- NOTE | 2022-03-09 07:00 | CA_ITS ---
Transthoracic Echocardiogram Patient (Last, First, Middle): Yuni Dhillon, Gender: Female Date of : 1975 Age: 46 Procedure Date: 03/09/2022 Procedure Type: Transthoracic Echocardiogram Location: S3E Height: 162.56 cm Weight: 114.31 kg BSA: 2.16 m2 Heart Rate: 96 bpm BP: 133 / 63 mmHg Mechanical Tech: Referring MD: Jaguar Renteria MD Symptoms: gram positive bacteremia Study Quality: Fair ECG Rhythm: Sinus Conclusions: - Normal left ventricular size and systolic function. There is mildly increased left ventricular wall thickness. The visually estimated ejection fraction is between 60-65%. - Normal right ventricular cavity size and systolic function. - The left atrium is mildly dilated. Findings Left Ventricle Normal left ventricular size and systolic function. There is mildly increased left ventricular wall thickness. The visually estimated ejection fraction is between 60-65%. There is no evidence of regional wall motion abnormalities. Diastolic function is indeterminate on the basis of available data. E/E prime ratio is between 8 and 15 consistent with indeterminate filling pressures. Right Ventricle Normal right ventricular cavity size and systolic function. Atria The left atrium is mildly dilated. Aortic Valve The aortic valve was not well visualized. There is no aortic valve stenosis. There is no aortic valve regurgitation. Mitral Valve The mitral valve appears normal. There is no mitral valve regurgitation. There is no mitral valve stenosis. Tricuspid Valve Normal tricuspid valve structure. There is no tricuspid valve regurgitation. Normal right atrial pressure. There is no evidence of pulmonary hypertension. Great Vessels All visible segments of the aorta are normal in size. The visualized portions of the pulmonary artery and branches are normal. Venous The inferior vena cava is normal in size and collapses greater than 50% with inspiration. Pericardium/Pleural There is no evidence of pericardial effusion. Prior Study Comparison No prior study available for comparison. Measurements 2D Linear Measurements IVSd: 0.97 0.6-0.9/0.6-1.0 cm LVIDd: 5.33 3.9-5.3/4.2-5.9 cm LVIDd Index: 2.47 2.4-3.2/2.2-3.1 cm/m2 LVIDs: 3.66 2.0-3.6 cm LVPWd: 0.96 0.7-1.1 cm Ao Root: 2.80 2.1-3.5 cm LA Diam: 3.90 2.7-3.8/3.0-4.0 cm LAIDs Index: 1.81 1.5-2.3 cm/m2 LV Mass: 240.98 67-162/88-224 g LV Mass Index: 111.57 43-95/49-115 g/m2 LVOT Diam: 2.20 3.0+(-)1.3 cm Mitral Valve MV Pk E: 0.85 MV PK A: 0.93 MV Decel Time: 123.00 E/A: 0.90 E'Lateral: 9.46 E'Medial: 7.40 E/E' Med: 11.50 E/E' Lat: 9.00 PHT: 36.00 MVA PHT: 6.11 Decel [place]: 6.91 Aortic Valve AoV Pk Logan: 1.56 AoV Mn Logan: 1.07 AoV VTI: 0.37 AoV Pk Grad: 10.00 Aov Mn Grad: 6.00 TIM Cont.VTI: 2.96 LVOT LVOT Pk Logan: 1.15 LVOT Mn Logan: 0.76 LVOT VTI: 0.28 LVOT Pk Grad: 5.00 LVOT Mn Grad: 3.00 LVOT Diam: 2.20 LVOT Area: 3.80 Diastolic Function MV Pk E: 0.85 MV Pk A: 0.93 E/A: 0.90 E'Medial: 7.40 E/E' Med: 11.50 E' Laterial: 9.46 E/E' Lat: 9.00 Right Ventricle TAPSE (mm): 23.00 Tricuspid Valve TR Pk Logan: 2.81 TR Pk Grad: 32.00 RA Press: 3.00 RVSP: 35.00 Great Vessels Aorta Ao Root-2D: 2.80 2.0-3.7 cm Ao Asc: 2.70 2.1-3.4 cm Updated in Other Vendor System with Status of Final Tommy Gill MD electronically signed on 03/10/2022 12:17:06 AM with status of Final
[2022-03-09 07:21] LABS: Estimated Glomerular Filt Rate > 60
[2022-03-09 07:45] LABS: Glucose, Whole Blood 177 mg/dL (60-115)
[2022-03-09 07:49] VITALS: BP 147/67; PULSE 96; RESP 20; TEMP 36.3; O2SAT 95
--- NOTE | 2022-03-09 07:59 | HO.PM.IMPN ---
Subjective Subjective Date of Service: 03/09/22 Interval History: Facial cellulitis,bacteremia Review of Systems Still has mandibular swelling and pain and erythema-slolwy improvin Denies any chest pain or shortness of breath or abdominal pain or any problems swallowing. Physical Exam Vital Signs: Vital Signs: Last Vital Signs Temp 97.3 F 03/09/22 07:49 Pulse 96 03/09/22 07:49 Resp 20 03/09/22 07:49 BP 147/67 H 03/09/22 07:49 Pulse Ox 95 03/09/22 07:49 O2 Del Method 03/09/22 07:49 BMI result Body Mass Index 43.1 Appearance: Alert.? Oriented X3.? not in distress.? right mandibular swelling /erythema ,poor oral hygene -tooth right sided mild erythema. neck supple,mild swelling upper neck ,no pain cvs: rrr, [id number] . res: clear to auscultation ,no rhonchii or wheezing,no stridor abd: no rebound or guarding ,nt, bs present. ext pulses present , no cyanosis. neuro: axo3 , nonfocal. Objective Data Active Medications Clonazepam (Clonazepam 0.5 Mg Tablet) 0.5 mg PO DAILY [facility] Last Admin: 03/08/22 11:17 Dose: 0.5 mg Documented By: HA Clozapine (Clozapine 100 Mg Tablet) 300 mg PO BEDTIME [facility] Last Admin: 03/08/22 20:48 Dose: 300 mg Documented By: CARMEN Clozapine (Clozapine 25 Mg Tablet) 50 mg PO DAILY [facility] Last Admin: 03/08/22 11:17 Dose: 50 mg Documented By: HA Dextrose (Dextrose 50 % 25 Gm/50 Ml Syringe) 25 gm IVPUSH Q15M PRN; Protocol PRN Reason: per Hypoglycemia Standing Ord. Divalproex Sodium (Divalproex Sodium Er 500 Mg Tab.Er.24h) 1,000 mg PO BEDTIME [facility] Last Admin: 03/08/22 20:48 Dose: 1,000 mg Documented By: CARMEN Enoxaparin Sodium (Enoxaparin Sodium 40 Mg/0.4 Ml Syringe) 40 mg SUBCUT Q24H [facility] Last Admin: 03/08/22 16:01 Dose: 40 mg Documented By: HA Glucose (Glucose Gel 15 Gm Gel..Gram.) 15 gm PO Q15M PRN; Protocol PRN Reason: per Hypoglycemia Standing Ord. Lactated Ringer's (Lr) 1,000 mls @ 125 mls/hr IVCONT .Q8H [facility] Last Admin: 03/09/22 05:29 Dose: Not Given Documented By: CARMEN Non-Admin Reason: IV Running Piperacillin Sod/Tazobactam (Sod 4.5 gm/ Sodium Chloride) 100 mls @ 200 mls/hr IV Q6H [facility] Last Infusion: 03/09/22 01:49 Dose: 0 mls/hr Documented By: CARMEN Vancomycin HCl 1,250 mg/ (Sodium Chloride) 250 mls @ 166.667 mls/hr IV Q12H [facility] Last Infusion: 03/09/22 03:26 Dose: 0 mls/hr Documented By: CARMEN Insulin Glargine (Insulin Glargine,Hum.Rec.Anlog 100 Unit/Ml 10 Ml Vial) 40 unit SUBCUT BEDTIME [facility] Last Admin: 03/08/22 20:48 Dose: 40 unit Documented By: CARMEN Insulin Human Lispro (Insulin Lispro 100 Unit/Ml 3 Ml Vial) 0 unit SUBCUT QIDACHS [facility]; Protocol Last Admin: 03/08/22 20:48 Dose: 4 unit Documented By: CARMEN Morphine Sulfate (Morphine Sulfate 2 Mg/Ml Cartridge) 1 mg IVPUSH Q2H PRN; Protocol PRN Reason: pain Last Admin: 03/08/22 19:29 Dose: 1 mg Documented By: CARMEN Ondansetron HCl (Ondansetron Hcl 4 Mg/2 Ml Vial) 4 mg IVPUSH Q8H PRN PRN Reason: Nausea and Vomiting Pharmacy Consult (Consult Rx Perform Med Rec) 1 each MISCELLANE ONCE PRN PRN Reason: Consult order Pharmacy Consult (Consult Rx Vancomycin Dosing) 1 each MISCELLANE DAILY PRN PRN Reason: Consult order Sertraline HCl (Sertraline Hcl 100 Mg Tablet) 100 mg PO DAILY [facility] Last Admin: 03/08/22 11:17 Dose: 100 mg Documented By: HA Sodium Chloride (0.9 % Sodium Chloride Flush 3 Ml Syringe) 3 ml IVFLUSH QSHIFT [facility] Last Admin: 03/08/22 20:48 Dose: Not Given Documented By: CARMEN Non-Admin Reason: IV Running Labs CBC & Chem 7: 03/08/22 04:32 03/09/22 05:58 Labs: Laboratory Results - last 24 hr 03/08/22 03/08/22 03/08/22 08:10 11:45 17:04 Estim Creat Clear Calc Estimated GFR POC Glucose 152 H 144 H 146 H 03/08/22 03/09/22 03/09/22 19:39 05:58 07:40 Estim Creat Clear Calc 109.0 Estimated GFR > 60 POC Glucose 214 H 177 H Microbiology Microbiology Results: Microbiology 03/07/22 10:39 Blood Culture - Preliminary Blood - Venous No growth after 24 hours. 03/07/22 10:39 Blood Culture - Preliminary Blood - Venous Prelim: GPC Gram Stain only 03/07/22 14:04 Gram Stain - Final Mouth Routine Culture - Preliminary Culture in progress. Assessment and Plan (1) Sepsis: Status: Acute (2) Poor oral hygiene: Status: Acute (3) Diabetes: Status: Acute (4) Dental infection: Status: Acute (5) Cellulitis of face: Status: Acute (6) Gram-positive bacteremia: Status: Acute Plan 46 y/o f with dm,htn-came to ED because of? right lower jaw, right face and right sided neck swelling -Ed physician did apical abscess, with gentle pressure ED was able to express approximately 2 cc of pus which was sent for culture. 1. sepsis sec Facial/dental? cellulitis: She was seen by her oral surgeon yesterday and prescribed antibiotics which she did not stop start yet.? Ct scan reviewed with radiology-seems more likely cellulitis than any abcess or airways issues. Denies any respiratory complaints or any swallowing problem but has nausea and also vomiting so unable to tolerate currently p.o. antibiotics Has leukocytosis, tachycardia-qualify for sepsis. Sepsis exam completed. ESR, CRP elevated, blood culture postive-gram positive cocci in cluster 1/2.? coagulase neg staph Continue IV antibiotic Zosyn and gentle hydration, IV pain medication, may need to dc vanco after review with ID. Id evaluation 2. Diabetes mellitus type 2: continue lantus Will add fingerstick with sliding scale coverage Considering facial cellulitis dm diet-soft consistency 3. Hypertension blood pressure is borderline will hold blood pressure medications for now Monitor blood pressure closely 4. Morbid obesity: Strongly encouraged to lose weight. 5. Nausea vomiting and diarrhea:? Vomiting and diarrhea seems to be improved will add stool studies just in case if has another diarrhea episode. Gentle hydration, antiemetic. Considering sepsis with facial cellulitis,bacteremia -patient will need IV antibiotics and hydration,Also need to monitoring for facial cellulitis. Quality Stroke Does the patient have a stroke diagnosis?: No VTE Prior VTE?: No VTE Risk Level:: Medical - moderate - high VTE Device Contraindication: N/A - Device Ordered VTE Drug Contraindication: N/A - Med Ordered
[2022-03-09] MEDS: Insulin Lispro 100 UNIT/ML 3 ML VIAL SUBCUT ×4 (08:28→19:38)
[2022-03-09] MEDS: Sertraline HCL 100 MG TABLET PO (08:29)
[2022-03-09] MEDS: cloZAPine 25 MG TABLET 50 MG PO (08:29)
[2022-03-09] MEDS: clonazePAM 0.5 MG TABLET PO (08:30)
[2022-03-09] MEDS: Morphine Sulfate 2 MG/ML CARTRIDGE 1 MG IVPUSH (10:56)
[2022-03-09] MEDS: Lactated Ringers 1,000 ML 125 ML IVCONT (11:08)
[2022-03-09 11:34] VITALS: BP 144/73; PULSE 89; RESP 18; TEMP 36.6; O2SAT 96
[2022-03-09 11:35] LABS: Glucose, Whole Blood 222 mg/dL (60-115)
--- NOTE | 2022-03-09 11:39 | MHC.CLN ---
NUTRITION CONSULT FOR RECENT WEIGHT LOSS. PATIENT REPORTED THAT LOST 29# 6-8 MONTHS AGO. PLANNED AND DESIRABLE WEIGHT LOSS. REPORTS MAKING BETTER FOOD CHOICES. NO REPORTED CONCERNS WITH CURRENT APPETITE. DIET=DIABETIC 1800 KCAL. NDD2 CONSISTENCY DUE TO FACIAL CELLULITIS, DENTAL CONCERNS. NO ADDITIONAL NUTRITION INTERVENTIONS AT THIS TIME.
[2022-03-09 13:18] LABS: Vancomycin Random 11.4 mcg/mL (15-20)
[2022-03-09 15:32] VITALS: BP 136/64; PULSE 88; RESP 18; TEMP 36.6; O2SAT 96
[2022-03-09 15:58] LABS: Glucose, Whole Blood 191 mg/dL (60-115)
[2022-03-09] MEDS: Enoxaparin Sodium 40 MG/0.4 ML SYRINGE SUBCUT (16:41)
[2022-03-09 19:10] VITALS: BP 137/62; PULSE 92; RESP 18; TEMP 36.8; O2SAT 98
[2022-03-09 19:32] LABS: Glucose, Whole Blood 169 mg/dL (60-115)
[2022-03-09] MEDS: cloZAPine 100 MG TABLET 300 MG PO (19:37)
[2022-03-09] MEDS: Insulin Glargine,Hum.rec.anlog 100 UNIT/ML 10 ML VIAL 40 UNIT SUBCUT (19:37)
[2022-03-09] MEDS: Divalproex Sodium ER 500 MG TAB.ER.24H 1000 MG PO (19:37)
[2022-03-09 23:52] VITALS: BP 147/78; PULSE 91; RESP 19; TEMP 36.2; O2SAT 95
[2022-03-10] MEDS: Piperacillin Sodium/Tazobactam 4.5 GM in 0.9 % Sodium Chloride 100 ML IV ×2 (02:59→08:08)
[2022-03-10 04:00] VITALS: BP 137/74; PULSE 84; RESP 18; TEMP 36.1; O2SAT 95
[2022-03-10 06:33] LABS: Creatinine Clr Calc Pharmacy 117.9; Estimated Glomerular Filt Rate > 60
[2022-03-10 07:40] LABS: Glucose, Whole Blood 174 mg/dL (60-115)
[2022-03-10 07:41] VITALS: BP 142/75; PULSE 82; RESP 19; TEMP 36.1; O2SAT 97
[2022-03-10] MEDS: Insulin Lispro 100 UNIT/ML 3 ML VIAL SUBCUT ×2 (08:07→11:41)
[2022-03-10] MEDS: 0.9 % Sodium Chloride Flush 3 ML SYRINGE IVFLUSH (08:08)
[2022-03-10] MEDS: Sertraline HCL 100 MG TABLET PO (08:08)
[2022-03-10] MEDS: cloZAPine 25 MG TABLET 50 MG PO (08:08)
[2022-03-10] MEDS: clonazePAM 0.5 MG TABLET PO (08:08)
[2022-03-10 11:32] VITALS: BP 168/79; PULSE 83; RESP 17; TEMP 36; O2SAT 96
[2022-03-10 11:32] LABS: Glucose, Whole Blood 185 mg/dL (60-115)
[2022-03-10] MEDS: Amoxicillin/Potassium Clav 875 MG TABLET PO (11:41)
--- NOTE | 2022-03-10 11:47 | P.DS_ITS ---
DS: Providers Provider Date of Service: 03/10/22 Date of admission: 03/07/22 15:35 Primary care physician: Jd Guevara MD Consults: 03/07/22 16:21 Consult to Infectious Diseases Routine Consulting Provider: Petra Pineda Reason for consultation: facialcellulitis Has provider been notified: No DS: Diagnosis Discharge Diagnosis (1) Sepsis: Status: Acute (2) Poor oral hygiene: Status: Acute (3) Diabetes: Status: Acute (4) Dental infection: Status: Acute (5) Cellulitis of face: Status: Acute (6) Gram-positive bacteremia: Status: Acute DS: Summary Hospital Course Hospital Course: 46 y/o f with dm,htn-came to ED because of? right lower jaw, right face and right sided neck swelling since having a root canal on tooth number 32 (1 1/2 weeks prior ).?she has had pain in the right side of her jaw since root canal and? swelling which is getting worse for few days.? From last few days she was feeling current constant throbbing pain in jaw right-sided, pain was 10/10, a swelling and pain was getting worse also had some redness around the right mandibular as well as slight on the facial area on the right side also, and minimal swelling on the upper neck . She denies any fever or chills or headache or blurry vision or weakness or numbness. ?She has had nausea with 3 episodes of vomiting over the past 24 hours and 2 loose diarrheal stools over the last 24 hours.? She did follow up with her oral surgeon yesterday but she was unable to get an x-ray as she could not open her mouth.? 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 She states that her pain got worse today therefore she came to the emergency department for evaluation. Lab imaging reviewed: WBC 13.2 Sodium 143 BUN 8 creatinine 0.69 ESR 59, CRP 10.65 CT/CT facial bones w IV con IMPRESSION: 1.? Inflammatory stranding visualized inferior to the mandible. No fluid collection. 2.? Periapical lucency involving the left mandibular central incisor. This could be a small periapical abscess. Patient says that she does not have allergy to tensely she feel nauseated, already received Zosyn in the ED and tolerated well.? Also received dexamethasone. Hospital course: Patient came to the hospital because of sepsis secondary to facial cellulitis right-sided also has poor oral hygiene unfortunately. Started on IV antibiotics seems to be improving significantly, blood cultures thought to be contaminant. Patient will be going home with p.o. antibiotics. Please complete the course of antibiotics for 7 days. Patient was strongly advised to follow up with her oral surgeon and PCP outpatient in 1 week. Above management discussed with the patient in detail length she understand and in agreement with the above plan, time spent 50 minutes and 50% time spent on counseling. Significant findings: As above. Procedures performed: None. Treatment and response: As above. Complications: None. Time Spent with Patient Time attestation: Total time spent providing and/or coordinating discharge services: Discharge coordination time: Greater than 30 minutes Quality: Safe Use of Opioids Does Pt have an Active Cancer Diagnosis on the Problem List?: No Quality: Stroke Does the patient have a stroke diagnosis?: No Physical Exam Vital Signs: Vital Signs: Last Vital Signs Temp 96.8 F 03/10/22 11:32 Pulse 83 03/10/22 11:32 Resp 17 03/10/22 11:32 BP 168/79 H 03/10/22 11:32 Pulse Ox 96 03/10/22 11:32 O2 Del Method 03/10/22 11:32 BMI result Body Mass Index 43.1 Appearance: Alert.? Oriented X3.? not in distress.? right mandibular swelling /erythema -improved ,oral hygene is poor. neck supple,mild swelling upper neck ,no pain cvs: rrr, [id number] . res: clear to auscultation ,no rhonchii or wheezing,no stridor abd: no rebound or guarding ,nt, bs present. ext pulses present , no cyanosis. neuro: axo3 , nonfocal. DS: Data Data Completed and Pending Labs on day of discharge: Laboratory Results - last 24 hr 03/09/22 03/09/22 03/09/22 11:54 15:52 19:27 Creatinine Estim Creat Clear Calc Estimated GFR POC Glucose 191 H 169 H Random Vancomycin 11.4 L 03/10/22 03/10/22 03/10/22 05:38 07:36 11:29 Creatinine 0.73 Estim Creat Clear Calc 117.9 Estimated GFR > 60 POC Glucose 174 H 185 H Random Vancomycin Preliminary micro results at discharge 03/07/22 10:39 Blood Culture - Preliminary Blood - Venous No growth after 48 hours. Additional Comments Additional comments: CT/CT facial bones w IV con IMPRESSION: 1.? Inflammatory stranding visualized inferior to the mandible. No fluid collection. 2.? Periapical lucency involving the left mandibular central incisor. This could be a small periapical abscess. Discharge Plan Discharge Anticipated Discharge Date/Time: 03/10/22 11:39 Patient Disposition: Home, Self-Care Discharge Diagnosis: Sepsis due to right facial cellulitis, poor oral hygiene. Referrals: Jd Cordova MD [Primary Care Provider] - 1 Week Discharge Medications: New amoxicillin-pot clavulanate 875-125 mg Tablet 875 mg PO Q12H Qty: 14 0RF Continued clozapine 100 mg tablet 3 tab PO BEDTIME clonazepam 0.5 mg tablet 1 tab PO DAILY sertraline 100 mg tablet 1 tab PO DAILY ascorbic acid (vitamin C) [Vitamin C] 500 mg tablet 1 tab PO BID ferrous sulfate 325 mg (65 mg iron) Tablet 325 mg PO BID divalproex 500 mg tablet extended release 24 hr 2 tab PO BEDTIME benztropine 1 mg tablet 1 tab PO BID perphenazine 4 mg tablet 1 tab PO BID omeprazole 20 mg capsule,delayed release(DR/EC) 1 cap PO DAILY@0630 clozapine 25 mg tablet 2 tab PO DAILY metformin 500 mg tablet extended release 24 hr 2 tab PO BID lisinopril 2.5 mg tablet 1 tab PO DAILY insulin lispro 100 unit/mL insulin pen See Protocol subcut TID@0800,1200,1600 Protocol: Insulin Correction Scale Less than or equal to 110 ---- Give (units): 0 111 to 150 Give (units): 0 151 to 200 Give (units): 2 201 to 250 Give (units): 4 251 to 300 Give (units): 6 301 to 350 Give (units): 8 Greater than 350 Give (units): 10 Call MD if Blood Glucose > : 350 metoprolol tartrate 25 mg tablet 1 tab PO BID insulin glargine [Lantus Solostar U-100 Insulin] 100 unit/mL (3 mL) Insulin Pen 70 unit subcut BEDTIME Trulicity 1.5 mg/0.5 mL pen injector 0.5 ml subcut WE@0900 Discharge Orders: Discharge Order (Routine); Ordered 03/10/22 Ordered By: Jaguar Renteria Diet: Advance to usual diet Activity on Discharge: As tolerated Stand Alone Forms: Patient Portal Discharge page Care Plan Goals: Patient came to the hospital because of sepsis secondary to facial cellulitis right-sided also has poor oral hygiene unfortunately. Started on IV antibiotics seems to be improving significantly, blood cultures thought to be contaminant. Patient will be going home with p.o. antibiotics. Please complete the course of antibiotics for 7 days. Patient was strongly advised to follow up with her oral surgeon and PCP outpatient in 1 week. Health Concerns: As above. Plan of Treatment: As above. Assessment: As above.
--- NOTE | 2022-03-10 13:52 | MHC.CM.PN ---
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
== END 2022-03-10 15:55 | disposition home or self-care (01) | DRG 721 ==
LOC: HO.ED 13:44 → HO.EDOVER 16:14 → HO.S3 03-08 18:12
PROVIDERS: Admitting Provider Internal Medicine; Emergency Provider Emergency Medicine Emergency Medical Services; PCP Internal Medicine; Visit Provider Internal Medicine
DX: T81.40XA Infection following a procedure, unspecified, initial encounter (principal); A41.9 Sepsis, unspecified organism; T81.44XA Sepsis following a procedure, initial encounter; E11.9 Type 2 diabetes mellitus without complications; L03.211 Cellulitis of face; E66.01 Morbid (severe) obesity due to excess calories; F17.210 Nicotine dependence, cigarettes, uncomplicated; I10 Essential (primary) hypertension; F41.9 Anxiety disorder, unspecified; Y83.8 Other surgical procedures as the cause of abnormal reaction of the patient, or of later complication, without mention of misadventure at the time of the procedure; Z20.822 Contact with and (suspected) exposure to COVID-19; Z68.41 Body mass index [BMI] 40.0-44.9, adult; Z71.6 Tobacco abuse counseling; Z88.0 Allergy status to penicillin; Z88.2 Allergy status to sulfonamides; Z79.4 Long term (current) use of insulin; Z79.84 Long term (current) use of oral hypoglycemic drugs; Z79.899 Other long term (current) drug therapy
CPT/HCPCS: 36415; 70487; 80048; 80053; 80202; 81001; 82565; 82947; 83605; 83690; 85025; 85027; 85610; 85652; 85730; 86140; 87040; 87070; 87147; 87205; 87502; 87635; 93306; 99285; J1100; J1650; J1885; J2270; J2405; J2543; J3370; Q9967

== ENCOUNTER 2022-04-21 21:05 | Inpatient (IN) | payer OTHER, MEDICAID, SELFPAY ==
[2022-04-21 21:16] VITALS: BP 129/72; PULSE 110; RESP 18; TEMP 36.2; O2SAT 97; BMI 44.4
[2022-04-21 21:33] LABS: Glucose, Whole Blood 148 mg/dL (60-115)
--- NOTE | 2022-04-21 21:46 | ED_ITS ---
HPI - Psych General Chief Complaint: Psychiatric Symptoms Stated Complaint: depressed Time Seen by Provider: 04/21/22 21:13 History of Present Illness HPI Narrative: Patient is a 46-year-old female with a history of schizophrenia. Hearing voices. Complaining the voices are crushing her. Positive depression. No suicidal ideation. Patient from home. No acute changes in medication. Related Data Home Medications Medication Instructions Recorded Confirmed ascorbic acid (vitamin C) 500 mg 1 tab PO BID 03/07/22 04/21/22 tablet (Vitamin C) benztropine 1 mg tablet 1 tab PO BID 03/07/22 04/21/22 clonazepam 0.5 mg tablet 1 tab PO QAM 03/07/22 04/21/22 clozapine 100 mg tablet 3 tab PO BEDTIME 03/07/22 04/21/22 clozapine 25 mg tablet 2 tab PO DAILY 03/07/22 04/21/22 divalproex 500 mg tablet,extended 2 tab PO BEDTIME 03/07/22 04/21/22 release 24 hr dulaglutide 1.5 mg/0.5 mL 0.5 ml subcut WE@0900 03/07/22 04/21/22 subcutaneous pen injector (Trulicity) ferrous sulfate 325 mg (65 mg 325 mg PO BID 03/07/22 04/21/22 iron) tablet insulin glargine 100 unit/mL (3 65 unit subcut BEDTIME 03/07/22 04/21/22 mL) subcutaneous pen (Lantus Solostar U-100 Insulin) insulin lispro 100 unit/mL See Protocol subcut 03/07/22 04/21/22 subcutaneous pen TID@0800,1200,1600 lisinopril 2.5 mg tablet 1 tab PO DAILY 03/07/22 04/21/22 metformin 500 mg tablet,extended 2 tab PO BID 03/07/22 04/21/22 release 24 hr metoprolol tartrate 25 mg tablet 1 tab PO BID 03/07/22 04/21/22 omeprazole 20 mg capsule,delayed 1 cap PO DAILY@0630 03/07/22 04/21/22 release perphenazine 4 mg tablet 1 tab PO BID 03/07/22 04/21/22 sertraline 100 mg tablet 1 tab PO QAM 03/07/22 04/21/22 docusate sodium 100 mg capsule 100 mg PO BID 04/21/22 04/21/22 (Colace) Allergies Allergy/AdvReac Type Severity Reaction Status Date / Time Sulfa (Sulfonamide Allergy Intermediate PUFFY EYES Unverified 03/07/22 09:14 Antibiotics) [SULFA (SULFONAMIDE ANTIBIOTICS)] Penicillins [PENICILLINS] Allergy Mild PT STATES Unverified 03/07/22 09:14 NOTHING HAPPENS, ALLG LISTED ON TRANF SHEET Review of Systems Review of Systems: No fever no chills no chest pain or shortness breath for suicidal ideation positive depression Yes all other systems are reviewed and are negative [facility] Past Medical History Attestation statement: The following information was validated with the patient. Medical History Diabetes Gram-positive bacteremia HTN (hypertension) Social History Social History Household Members: Other Housing: Other Housing Other:: INTERMEDIATE Do you presently have visiting nurse or other home services: No Alcohol intake: never Patient Tobacco Use Status: Current everyday Tobacco user Tobacco use type: Cigarette Cigarettes Per Day: 10 Years Smoked: 18 Second Hand Smoke Exposure: No Advance Directives: No Advance Directives Information Provided: No service: No Current occupational status: disabled Physical Exam Vital Signs: Vital Signs: Last Vital Signs Temp 97.1 F 04/21/22 21:16 Pulse 110 H 04/21/22 21:16 Resp 18 04/21/22 21:16 BP 129/72 04/21/22 21:16 Pulse Ox 97 04/21/22 21:16 O2 Del Method 04/21/22 21:16 BMI result Body Mass Index 44.4 Appearance: Alert. Oriented X3. No acute distress. Eyes: Pupils equal, round and reactive to light. ENT: Pharynx normal. Neck: Normal inspection. Neck supple. No lymph nodes noted. No crepitus CVS: Normal heart rate and rhythm. Pulses normal. Normal S1 and S2 Respiratory: No respiratory distress. Breath sounds normal. No Wheezing. No rales Abdomen: Soft and nontender. No rigidity. No distention. good BS x4 Skin: Skin warm and dry. Normal skin color. Normal skin turgor. Extremities: No lower extremity edema. Neurovascular intact to all extremities. No Lacerations. No Rash Neuro: Oriented X 3. No motor deficit. No sensory deficit. Moving all extermities. No slurred speech. Cranial nerves grossly intact MDM - Psych MDM Narrative Medical decision making narrative: Patient awaiting crisis evaluation. Baseline labs ordered. Patient medically cleared awaiting crisis evaluation Medical Records Attestation: I reviewed the patient's medical records. Lab Data Attestation: I reviewed the patient's lab results. Result diagrams: 04/21/22 21:46 04/21/22 21:46 Labs: Lab Results 04/21/22 04/21/22 04/21/22 Range/Units 21:27 21:46 21:46 WBC 15.1 H (4.8-10.8) X10*3/uL RBC 4.59 (4.20-5.50) X10*6/uL Hgb 12.5 (12.0-16.0) g/dl Hct 39.1 (37.0-47.0) % MCV 85.2 (80.0-98.0) fL MCH 27.2 (27.0-33.0) pg MCHC 32.0 (31.0-35.0) g/dl RDW 14.7 (11.0-16.0) % Plt Count 363 (160-400) X10*3/uL MPV 9.5 (9.4-12.3) fL Immature Gran % (Auto) 0.5 H (0.0-0.4) % Neut % (Auto) 65.0 (45-73) % Lymph % (Auto) 29.0 (20-40) % [place] % (Auto) 4.4 (2-11) % Eos % (Auto) 0.8 (0-4) % Baso % (Auto) 0.3 (0-2) % Lymph # (Auto) 4.4 (1.2-4.9) X10*3/uL [place] # (Auto) 0.7 (0.1-1.2) X10*3/uL Eos # (Auto) 0.1 (0.0-0.4) X10*3/uL Baso # (Auto) 0.0 (0.0-0.2) X10*3/uL Abs Immat Gran (auto) 0.07 H (0.00-0.03) X10*3/uL Absolute Neuts (auto) 9.8 H (2.0-8.3) x10*3/uL Absolute Nucleated RBC 0.000 (0.0-0.012) X10*3/uL Nucleated RBC % (auto) 0.0 (0.0-0.2) /100WBC Sodium 140 (135-145) mmol/L Potassium 4.5 (3.3-5.1) mmol/L Chloride 101 (96-108) mmol/L Carbon Dioxide 27 (22-29) mmol/L Anion Gap 17 (12-20) BUN 11 (9-16) mg/dL Creatinine 0.80 (0.5-1.4) mg/dL Estim Creat Clear Calc 109.5 Estimated GFR > 60 POC Glucose 148 H (60-115) mg/dL Random Glucose 156 H (60-115) mg/dL Calcium 9.6 D (8.4-10.2) mg/dL Total Bilirubin 0.2 (0.0-1.0) mg/dL AST 20 D (5-31) U/L ALT 29 (0-31) U/L Alkaline Phosphatase 79 (39-117) U/L Total Protein 6.7 (6.5-8.0) g/dL Albumin 4.2 (3.5-5.0) g/dL Valproic Acid (50.0-100.0) mcg/mL Influenza Type A (PCR) (Negative) Influenza Type B (PCR) (Negative) RSV RNA Qual (PCR) (Negative) SARS-CoV-2 RNA (RT-PCR) (Negative) 04/21/22 04/21/22 Range/Units 21:46 21:46 WBC (4.8-10.8) X10*3/uL RBC (4.20-5.50) X10*6/uL Hgb (12.0-16.0) g/dl Hct (37.0-47.0) % MCV (80.0-98.0) fL MCH (27.0-33.0) pg MCHC (31.0-35.0) g/dl RDW (11.0-16.0) % Plt Count (160-400) X10*3/uL MPV (9.4-12.3) fL Immature Gran % (Auto) (0.0-0.4) % Neut % (Auto) (45-73) % Lymph % (Auto) (20-40) % [place] % (Auto) (2-11) % Eos % (Auto) (0-4) % Baso % (Auto) (0-2) % Lymph # (Auto) (1.2-4.9) X10*3/uL [place] # (Auto) (0.1-1.2) X10*3/uL Eos # (Auto) (0.0-0.4) X10*3/uL Baso # (Auto) (0.0-0.2) X10*3/uL Abs Immat Gran (auto) (0.00-0.03) X10*3/uL Absolute Neuts (auto) (2.0-8.3) x10*3/uL Absolute Nucleated RBC (0.0-0.012) X10*3/uL Nucleated RBC % (auto) (0.0-0.2) /100WBC Sodium (135-145) mmol/L Potassium (3.3-5.1) mmol/L Chloride (96-108) mmol/L Carbon Dioxide (22-29) mmol/L Anion Gap (12-20) BUN (9-16) mg/dL Creatinine (0.5-1.4) mg/dL Estim Creat Clear Calc Estimated GFR POC Glucose (60-115) mg/dL Random Glucose (60-115) mg/dL Calcium (8.4-10.2) mg/dL Total Bilirubin (0.0-1.0) mg/dL AST (5-31) U/L ALT (0-31) U/L Alkaline Phosphatase (39-117) U/L Total Protein (6.5-8.0) g/dL Albumin (3.5-5.0) g/dL Valproic Acid 17.4 L (50.0-100.0) mcg/mL Influenza Type A (PCR) NEGATIVE (Negative) Influenza Type B (PCR) NEGATIVE (Negative) RSV RNA Qual (PCR) NEGATIVE (Negative) SARS-CoV-2 RNA (RT-PCR) NEGATIVE (Negative) Discharge Plan Discharge Clinical Impression: Depression Patient Disposition: Still a Patient Prescriptions: No Action docusate sodium [Colace] 100 mg Capsule 100 mg PO BID clozapine 100 mg tablet 3 tab PO BEDTIME clonazepam 0.5 mg tablet 1 tab PO QAM sertraline 100 mg tablet 1 tab PO QAM ascorbic acid (vitamin C) [Vitamin C] 500 mg tablet 1 tab PO BID ferrous sulfate 325 mg (65 mg iron) Tablet 325 mg PO BID divalproex 500 mg tablet extended release 24 hr 2 tab PO BEDTIME benztropine 1 mg tablet 1 tab PO BID perphenazine 4 mg tablet 1 tab PO BID omeprazole 20 mg capsule,delayed release(DR/EC) 1 cap PO DAILY@0630 clozapine 25 mg tablet 2 tab PO DAILY metformin 500 mg tablet extended release 24 hr 2 tab PO BID lisinopril 2.5 mg tablet 1 tab PO DAILY insulin lispro 100 unit/mL insulin pen See Protocol subcut TID@0800,1200,1600 Protocol: Insulin Correction Scale Less than or equal to 110 ---- Give (units): 0 111 to 150 Give (units): 0 151 to 200 Give (units): 2 201 to 250 Give (units): 4 251 to 300 Give (units): 6 301 to 350 Give (units): 8 Greater than 350 Give (units): 10 Call MD if Blood Glucose > : 350 metoprolol tartrate 25 mg tablet 1 tab PO BID insulin glargine [Lantus Solostar U-100 Insulin] 100 unit/mL (3 mL) Insulin Pen 65 unit subcut BEDTIME Trulicity 1.5 mg/0.5 mL pen injector 0.5 ml subcut WE@0900
[2022-04-21 21:52] LABS: MANUAL DIFF FLAG NO
[2022-04-21 21:56] LABS: Basophils Percent Auto 0.3 % (0-2); Eosinophils Absolute Auto 0.1 X10*3/uL (0.0-0.4); Eosinophils Percent Auto 0.8 % (0-4); Hematocrit 39.1 % (37.0-47.0); Hemoglobin 12.5 g/dl (12.0-16.0); Imm Gran Abs Auto 0.07 X10*3/uL (0.00-0.03); Imm Gran Pct Auto 0.5 % (0.0-0.4); Lymphocytes Absolute Auto 4.4 X10*3/uL (1.2-4.9); Mean Corpuscular Hemoglobin 27.2 pg (27.0-33.0); Mean Corpuscular Volume 85.2 fL (80.0-98.0); Mean Platelet Volume 9.5 fL (9.4-12.3); Monocytes Absolute Auto 0.7 X10*3/uL (0.1-1.2); Monocytes Percent Auto 4.4 % (2-11); Neutrophils Absolute Auto 9.8 x10*3/uL (2.0-8.3); Platelet Count 363 X10*3/uL (160-400); Red Blood Count 4.59 X10*6/uL (4.20-5.50); Red Cell Distribution Width 14.7 % (11.0-16.0); White Blood Count 15.1 X10*3/uL (4.8-10.8)
[2022-04-21 22:13] LABS: Alanine Aminotransferase 29 U/L (0-31); Albumin Level 4.2 g/dL (3.5-5.0); Alkaline Phosphatase 79 U/L (39-117); Anion Gap 17 (12-20); Aspartate Amino Transferase 20 U/L (5-31); Blood Urea Nitrogen 11 mg/dL (9-16); Calcium 9.6 mg/dL (8.4-10.2); Carbon Dioxide 27 mmol/L (22-29); Chloride 101 mmol/L (96-108); Creatinine Clr Calc Pharmacy 109.5; Estimated Glomerular Filt Rate > 60; Glucose Random 156 mg/dL (60-115); Potassium 4.5 mmol/L (3.3-5.1); Sodium 140 mmol/L (135-145); Total Protein 6.7 g/dL (6.5-8.0); Valproate 17.4 mcg/mL (50.0-100.0)
[2022-04-21 22:31] LABS: Influenza A PCR NEGATIVE (Negative); Influenza B PCR NEGATIVE (Negative); Resp Syncy Virus RNA Qual PCR NEGATIVE (Negative); SARS COV2 PCR INHOUSE NEGATIVE (Negative)
--- NOTE | 2022-04-21 22:34 | MHC.CARE ---
Care Team called N for an ETA and Jes stated to expect a clinician for pt after 11:30 pm.
[2022-04-21 23:53] LABS: Bilirubin Total 0.2 mg/dL (0.0-1.0)
[2022-04-22 04:05] LABS: Appearance Urine Clear; Color Urine Yellow; Glucose Urine UA Negative (Negative); Leukocyte Esterase Urine Negative (Negative); Nitrite Urine Negative (Negative); Specific Gravity - Urine <= 1.005 (1.005-1.025); Urine Blood Negative (Negative); Urine Ketones Negative (Negative); Urine Protein Negative (Neg-Trace)
[2022-04-22 04:07] LABS: UPreg QC Valid YES; Urine Pregnancy NEGATIVE (NEGATIVE)
[2022-04-22 04:19] LABS: Amphetamine Screen Urine Not Detected (Not Detect); Barbiturates, Urine Not Detected (Not Detect); Benzodiazepines Screen Urine Not Detected (Not Detect); Cannabinoid Screen Urine Not Detected (Not Detect); Cocaine Screen Urine Not Detected (Not Detect); Fentanyl, urine Not Detected (Not Detect); Opiate Screen Urine Not Detected (Not Detect); Phencyclidine Screen Urine Not Detected (Not Detect)
[2022-04-22] MEDS: Omeprazole 20 MG CAPSULE.DR PO (05:36)
[2022-04-22 06:08] VITALS: BP 116/55; PULSE 73; RESP 17; TEMP 36.8; O2SAT 97
[2022-04-22 06:17] LABS: Glucose, Whole Blood 150 mg/dL (60-115)
--- NOTE | 2022-04-22 06:23 | PC.NURSE ---
Patient slept through the night, no distress observed/reported, medication compliant, POC at 0612 was 150, behavior polite and non concerning, patient was attempted to assess by BHN however patient politely refused to the clinician stating she gets triggered by . According to the patient most of the staff are and were not nice to her. Patient will be reevaluated by the BHN in the morning, VSS, will continue to monitor.
--- NOTE | 2022-04-22 07:36 | HE.PHANOTE ---
Spoke to [facility], spoke to Pretty (I believe was the name) and confirmed patient was last given Clozaril 350mg on 04/20.
[2022-04-22] MEDS: Sertraline HCL 100 MG TABLET PO (07:46)
[2022-04-22] MEDS: Ferrous Sulfate 324 MG TABLET.DR PO ×2 (07:46→20:39)
[2022-04-22] MEDS: Ascorbic Acid 500 MG TABLET PO ×2 (07:47→20:39)
[2022-04-22] MEDS: Metoprolol Tartrate 25 MG TABLET PO ×2 (07:47→20:39)
[2022-04-22] MEDS: Docusate Sodium 100 MG CAPSULE PO ×2 (07:47→20:39)
[2022-04-22] MEDS: clonazePAM 0.5 MG TABLET PO (07:47)
[2022-04-22] MEDS: lisinopriL 2.5 MG TABLET PO (07:47)
[2022-04-22] MEDS: Benztropine Mesylate 1 MG TABLET PO ×2 (07:47→20:39)
[2022-04-22] MEDS: metFORMIN HCl ER 500 MG TAB.ER.24H 1000 MG PO ×2 (07:47→20:39)
[2022-04-22] MEDS: Perphenazine 4 MG TABLET PO ×2 (07:50→20:39)
--- NOTE | 2022-04-22 08:41 | PC.NURSE ---
in bed, nad, resting , medicated as ordered and waiting for clozaril from pharmacy
[2022-04-22] MEDS: cloZAPine 25 MG TABLET 50 MG PO (09:03)
[2022-04-22 13:32] LABS: Glucose, Whole Blood 143 mg/dL (60-115)
[2022-04-22] MEDS: Insulin Lispro 100 UNIT/ML 3 ML VIAL SUBCUT (18:36)
[2022-04-22 18:37] LABS: Glucose, Whole Blood 161 mg/dL (60-115)
[2022-04-22 20:36] VITALS: BP 143/74; PULSE 105; RESP 20; TEMP 36.6; O2SAT 98
[2022-04-22] MEDS: Insulin Glargine,Hum.rec.anlog 100 UNIT/ML 10 ML VIAL 65 UNIT SUBCUT (20:38)
[2022-04-22] MEDS: Divalproex Sodium ER 500 MG TAB.ER.24H 1000 MG PO (20:39)
[2022-04-22] MEDS: cloZAPine 100 MG TABLET 300 MG PO (20:39)
--- NOTE | 2022-04-23 00:15 | PC.NURSE ---
Pt resting at the bedside. Reports I am taking a nap. No apparent distress noted. Will continue to monitor.
--- NOTE | 2022-04-23 02:27 | PC.NURSE ---
Pt sleeping in no apparent distress. Breaths are even and unlabored with equal chest rises. Will continue to monitor.
[2022-04-23 06:00] VITALS: BP 127/71; PULSE 109; RESP 12; TEMP 36.5; O2SAT 97
[2022-04-23] MEDS: Omeprazole 20 MG CAPSULE.DR PO (06:14)
[2022-04-23 07:06] LABS: Glucose, Whole Blood 201 mg/dL (60-115)
--- NOTE | 2022-04-23 08:45 | PC.NURSE ---
pt's sister (kolton alokmerrickkaur, hcp and guardian who lives in [place], ) [place] [facility] updated [place] pt status. pt is aware that her sister had called.
[2022-04-23] MEDS: Ascorbic Acid 500 MG TABLET PO ×2 (09:15→22:30)
[2022-04-23] MEDS: Ferrous Sulfate 324 MG TABLET.DR PO ×2 (09:15→22:29)
[2022-04-23] MEDS: Perphenazine 4 MG TABLET PO ×2 (09:15→22:29)
[2022-04-23] MEDS: Docusate Sodium 100 MG CAPSULE PO ×2 (09:15→22:29)
[2022-04-23] MEDS: cloZAPine 25 MG TABLET 50 MG PO (09:15)
[2022-04-23] MEDS: clonazePAM 0.5 MG TABLET PO (09:15)
[2022-04-23] MEDS: Metoprolol Tartrate 25 MG TABLET PO ×2 (09:15→22:30)
[2022-04-23] MEDS: lisinopriL 2.5 MG TABLET PO (09:15)
[2022-04-23] MEDS: metFORMIN HCl ER 500 MG TAB.ER.24H 1000 MG PO ×2 (09:16→22:29)
[2022-04-23] MEDS: Sertraline HCL 100 MG TABLET PO (09:16)
[2022-04-23] MEDS: Benztropine Mesylate 1 MG TABLET PO ×2 (09:17→22:29)
[2022-04-23] MEDS: Insulin Lispro 100 UNIT/ML 3 ML VIAL SUBCUT ×2 (09:17→18:35)
[2022-04-23 09:20] VITALS: BP 118/72; PULSE 97; RESP 18; TEMP 36.8; O2SAT 98
[2022-04-23 12:21] LABS: MANUAL DIFF FLAG NO
[2022-04-23 12:24] LABS: Basophils Percent Auto 0.2 % (0-2); Eosinophils Absolute Auto 0.1 X10*3/uL (0.0-0.4); Eosinophils Percent Auto 0.9 % (0-4); Hematocrit 39.8 % (37.0-47.0); Hemoglobin 12.6 g/dl (12.0-16.0); Imm Gran Abs Auto 0.03 X10*3/uL (0.00-0.03); Imm Gran Pct Auto 0.2 % (0.0-0.4); Lymphocytes Absolute Auto 2.9 X10*3/uL (1.2-4.9); Lymphocytes Percent Auto 22.1 % (20-40); Mean Corpuscular HGB Conc 31.7 g/dl (31.0-35.0); Mean Corpuscular Hemoglobin 26.5 pg (27.0-33.0); Mean Corpuscular Volume 83.8 fL (80.0-98.0); Mean Platelet Volume 9.1 fL (9.4-12.3); Monocytes Absolute Auto 0.7 X10*3/uL (0.1-1.2); Monocytes Percent Auto 5.5 % (2-11); Neutrophils Absolute Auto 9.4 x10*3/uL (2.0-8.3); Neutrophils Percent Auto 71.1 % (45-73); Platelet Count 319 X10*3/uL (160-400); Red Blood Count 4.75 X10*6/uL (4.20-5.50); Red Cell Distribution Width 14.5 % (11.0-16.0); White Blood Count 13.2 X10*3/uL (4.8-10.8)
--- NOTE | 2022-04-23 13:06 | ECG_ITS ---
Test Reason : medical clearance Blood Pressure : / mmHG Vent. Rate : 093 BPM Atrial Rate : 093 BPM P-R Int : 128 ms QRS Dur : 088 ms QT Int : 376 ms P-R-T Axes : 049 067 045 degrees QTc Int : 467 ms Normal sinus rhythm Low voltage QRS Borderline ECG No previous ECGs available Referred By: Artem Gonzalez Electronically Signed By:PAULO CARDENAS MD
--- NOTE | 2022-04-23 13:07 | PC.NURSE ---
rn to rn report given to pam rainey aware of plan of care for transfer to [facility].
[2022-04-23 13:19] LABS: Glucose, Whole Blood 139 mg/dL (60-115)
[2022-04-23 13:47] VITALS: BP 135/80; PULSE 104; RESP 18; TEMP 36.5; O2SAT 97
--- NOTE | 2022-04-23 14:44 | HO.PSYADMNOT ---
HPI Date of Service: 04/23/22 Chief Complaint: SI Sources of Information: patient interviewed, chart reviewed and crisis/core team assessment reviewed HPI Subjective Notes: Shah Warning (shows understanding) and Conditional Voluntary Narrative: Ms. Dhillon is a 46 year-old woman with hx of schizophrenia. She was [place] via EMS [place] [facility] after she asked one of the staff at where she resides that she was hearing more voices and not feeling safe at . On the unit, pt reports hearing voices all the time, apparently worse in past several weeks. Pt reports she does not feel safe at and thinks peers and staff are after her. She reports taking medications consistently. She denies SI/HI. She recently about 8 months ago moved to this new . Past Psychiatric History: Inpatient: last one about one year ago OP: [facility] Past trials: clozaril, perphenazine, depakote Medical Evaluation Reviewed: Yes [facility] Medical History Diabetes Gram-positive bacteremia HTN (hypertension) Social History: lives in . No children, not . Sister is guardian Substance History: None Trauma History: none Diagnostics Vital Signs (24Hr): Vital Signs - 24 hr 04/22/22 20:36 04/23/22 06:00 04/23/22 09:20 Temperature 97.8 F 97.7 F 98.3 F Pulse Rate 105 H 109 H 97 Respiratory Rate 20 12 18 Blood Pressure 143/74 H 127/71 118/72 Pulse Oximetry 98 97 98 Oxygen Delivery Method Room Air Room Air Room Air BMI result Body Mass Index 44.4 Labs Results: 04/23/22 12:17 04/24/22 08:49 Labs: Laboratory Results - last 48 hr 04/21/22 04/21/22 04/21/22 21:27 21:46 21:46 WBC 15.1 H RBC 4.59 Hgb 12.5 Hct 39.1 MCV 85.2 MCH 27.2 MCHC 32.0 RDW 14.7 Plt Count 363 MPV 9.5 Immature Gran % (Auto) 0.5 H Neut % (Auto) 65.0 Lymph % (Auto) 29.0 [place] % (Auto) 4.4 Eos % (Auto) 0.8 Baso % (Auto) 0.3 Lymph # (Auto) 4.4 [place] # (Auto) 0.7 Eos # (Auto) 0.1 Baso # (Auto) 0.0 Abs Immat Gran (auto) 0.07 H Absolute Neuts (auto) 9.8 H Absolute Nucleated RBC 0.000 Nucleated RBC % (auto) 0.0 Sodium 140 Potassium 4.5 Chloride 101 Carbon Dioxide 27 Anion Gap 17 BUN 11 Creatinine 0.80 Estim Creat Clear Calc 109.5 Estimated GFR > 60 POC Glucose 148 H Random Glucose 156 H Calcium 9.6 D Total Bilirubin 0.2 AST 20 D ALT 29 Alkaline Phosphatase 79 Total Protein 6.7 Albumin 4.2 Urine Color Urine Appearance Urine pH Ur Specific [place] Urine Protein Urine Glucose (UA) Urine Ketones Urine Blood Urine Nitrite Ur Leukocyte Esterase Urine Test Urine Opiates Screen Urine Fentanyl Screen Ur Barbiturates Screen Valproic Acid Ur Phencyclidine Scrn Ur Amphetamines Screen U Benzodiazepines Scrn Urine Cocaine Screen U Marijuana (THC) Screen Influenza Type A (PCR) Influenza Type B (PCR) RSV RNA Qual (PCR) SARS-CoV-2 RNA (RT-PCR) 04/21/22 04/21/22 04/22/22 21:46 21:46 03:52 WBC RBC Hgb Hct MCV MCH MCHC RDW Plt Count MPV Immature Gran % (Auto) Neut % (Auto) Lymph % (Auto) [place] % (Auto) Eos % (Auto) Baso % (Auto) Lymph # (Auto) [place] # (Auto) Eos # (Auto) Baso # (Auto) Abs Immat Gran (auto) Absolute Neuts (auto) Absolute Nucleated RBC Nucleated RBC % (auto) Sodium Potassium Chloride Carbon Dioxide Anion Gap BUN Creatinine Estim Creat Clear Calc Estimated GFR POC Glucose Random Glucose Calcium Total Bilirubin AST ALT Alkaline Phosphatase Total Protein Albumin Urine Color Urine Appearance Urine pH Ur Specific [place] Urine Protein Urine Glucose (UA) Urine Ketones Urine Blood Urine Nitrite Ur Leukocyte Esterase Urine Test Urine Opiates Screen Not Detected Urine Fentanyl Screen Not Detected Ur Barbiturates Screen Not Detected Valproic Acid 17.4 L Ur Phencyclidine Scrn Not Detected Ur Amphetamines Screen Not Detected U Benzodiazepines Scrn Not Detected Urine Cocaine Screen Not Detected U Marijuana (THC) Screen Not Detected Influenza Type A (PCR) NEGATIVE Influenza Type B (PCR) NEGATIVE RSV RNA Qual (PCR) NEGATIVE SARS-CoV-2 RNA (RT-PCR) NEGATIVE 12/09/0804/22/22 04/22/22 03:52 03:52 06:12 WBC RBC Hgb Hct MCV MCH MCHC RDW Plt Count MPV Immature Gran % (Auto) Neut % (Auto) Lymph % (Auto) [place] % (Auto) Eos % (Auto) Baso % (Auto) Lymph # (Auto) [place] # (Auto) Eos # (Auto) Baso # (Auto) Abs Immat Gran (auto) Absolute Neuts (auto) Absolute Nucleated RBC Nucleated RBC % (auto) Sodium Potassium Chloride Carbon Dioxide Anion Gap BUN Creatinine Estim Creat Clear Calc Estimated GFR POC Glucose 150 H Random Glucose Calcium Total Bilirubin AST ALT Alkaline Phosphatase Total Protein Albumin Urine Color Yellow Urine Appearance Clear Urine pH 6.0 Ur Specific [place] <= 1.005 Urine Protein Negative Urine Glucose (UA) Negative Urine Ketones Negative Urine Blood Negative Urine Nitrite Negative Ur Leukocyte Esterase Negative Urine Test NEGATIVE Urine Opiates Screen Urine Fentanyl Screen Ur Barbiturates Screen Valproic Acid Ur Phencyclidine Scrn Ur Amphetamines Screen U Benzodiazepines Scrn Urine Cocaine Screen U Marijuana (THC) Screen Influenza Type A (PCR) Influenza Type B (PCR) RSV RNA Qual (PCR) SARS-CoV-2 RNA (RT-PCR) 04/22/22 04/22/22 04/23/22 13:28 18:32 07:02 WBC RBC Hgb Hct MCV MCH MCHC RDW Plt Count MPV Immature Gran % (Auto) Neut % (Auto) Lymph % (Auto) [place] % (Auto) Eos % (Auto) Baso % (Auto) Lymph # (Auto) [place] # (Auto) Eos # (Auto) Baso # (Auto) Abs Immat Gran (auto) Absolute Neuts (auto) Absolute Nucleated RBC Nucleated RBC % (auto) Sodium Potassium Chloride Carbon Dioxide Anion Gap BUN Creatinine Estim Creat Clear Calc Estimated GFR POC Glucose 143 H 161 H 201 H Random Glucose Calcium Total Bilirubin AST ALT Alkaline Phosphatase Total Protein Albumin Urine Color Urine Appearance Urine pH Ur Specific [place] Urine Protein Urine Glucose (UA) Urine Ketones Urine Blood Urine Nitrite Ur Leukocyte Esterase Urine Test Urine Opiates Screen Urine Fentanyl Screen Ur Barbiturates Screen Valproic Acid Ur Phencyclidine Scrn Ur Amphetamines Screen U Benzodiazepines Scrn Urine Cocaine Screen U Marijuana (THC) Screen Influenza Type A (PCR) Influenza Type B (PCR) RSV RNA Qual (PCR) SARS-CoV-2 RNA (RT-PCR) 04/23/22 04/23/22 12:17 13:15 WBC 13.2 H RBC 4.75 Hgb 12.6 Hct 39.8 MCV 83.8 MCH 26.5 L MCHC 31.7 RDW 14.5 Plt Count 319 MPV 9.1 L Immature Gran % (Auto) 0.2 Neut % (Auto) 71.1 Lymph % (Auto) 22.1 [place] % (Auto) 5.5 Eos % (Auto) 0.9 Baso % (Auto) 0.2 Lymph # (Auto) 2.9 [place] # (Auto) 0.7 Eos # (Auto) 0.1 Baso # (Auto) 0.0 Abs Immat Gran (auto) 0.03 Absolute Neuts (auto) 9.4 H Absolute Nucleated RBC 0.000 Nucleated RBC % (auto) 0.0 Sodium Potassium Chloride Carbon Dioxide Anion Gap BUN Creatinine Estim Creat Clear Calc Estimated GFR POC Glucose 139 H Random Glucose Calcium Total Bilirubin AST ALT Alkaline Phosphatase Total Protein Albumin Urine Color Urine Appearance Urine pH Ur Specific [place] Urine Protein Urine Glucose (UA) Urine Ketones Urine Blood Urine Nitrite Ur Leukocyte Esterase Urine Test Urine Opiates Screen Urine Fentanyl Screen Ur Barbiturates Screen Valproic Acid Ur Phencyclidine Scrn Ur Amphetamines Screen U Benzodiazepines Scrn Urine Cocaine Screen U Marijuana (THC) Screen Influenza Type A (PCR) Influenza Type B (PCR) RSV RNA Qual (PCR) SARS-CoV-2 RNA (RT-PCR) Meds/Allergies Meds Home Medications Medication Instructions Recorded Confirmed Type ascorbic acid (vitamin C) 500 mg 1 tab PO BID 03/07/22 04/21/22 History tablet (Vitamin C) benztropine 1 mg tablet 1 tab PO BID 03/07/22 04/21/22 History clonazepam 0.5 mg tablet 1 tab PO QAM 03/07/22 04/21/22 History clozapine 100 mg tablet 3 tab PO BEDTIME 03/07/22 04/21/22 History clozapine 25 mg tablet 2 tab PO DAILY 03/07/22 04/21/22 History divalproex 500 mg tablet,extended 2 tab PO BEDTIME 03/07/22 04/21/22 History release 24 hr dulaglutide 1.5 mg/0.5 mL 0.5 ml subcut WE@0900 03/07/22 04/21/22 History subcutaneous pen injector (Trulicity) ferrous sulfate 325 mg (65 mg 325 mg PO BID 03/07/22 04/21/22 History iron) tablet insulin glargine 100 unit/mL (3 65 unit subcut BEDTIME 03/07/22 04/21/22 History mL) subcutaneous pen (Lantus Solostar U-100 Insulin) insulin lispro 100 unit/mL See Protocol subcut 03/07/22 04/21/22 History subcutaneous pen TID@0800,1200,1600 lisinopril 2.5 mg tablet 1 tab PO DAILY 03/07/22 04/21/22 History metformin 500 mg tablet,extended 2 tab PO BID 03/07/22 04/21/22 History release 24 hr metoprolol tartrate 25 mg tablet 1 tab PO BID 03/07/22 04/21/22 History omeprazole 20 mg capsule,delayed 1 cap PO DAILY@0630 03/07/22 04/21/22 History release perphenazine 4 mg tablet 1 tab PO BID 03/07/22 04/21/22 History sertraline 100 mg tablet 1 tab PO QAM 03/07/22 04/21/22 History docusate sodium 100 mg capsule 100 mg PO BID 04/21/22 04/21/22 History (Colace) Allergies Allergies Allergy/AdvReac Type Severity Reaction Status Date / Time Sulfa (Sulfonamide Allergy Intermediate PUFFY EYES Verified 04/22/22 06:14 Antibiotics) [SULFA (SULFONAMIDE ANTIBIOTICS)] Penicillins [PENICILLINS] Allergy Mild PT STATES Verified 04/22/22 06:14 NOTHING HAPPENS, ALLG LISTED ON TRANF SHEET Mental Status Exam Mental Status Exam Narrative: Appearance: wearing hospital gown, MO, in NAD Behavior: superficially cooperative Psychomotor: no agitation or retardation noted TP: linear TC: not feeling safe at , hearing voices Mood: tired Affect: congruent SI: none HI: none AH: reports hearing voices VH: none Delusions: paranoid delusions Insight/judgment: fair x 2. Memory/cog: alert, oriented x 3. not formally tested. Assessment & Plan Assessment & Plan (1) Schizophrenia: Status: Acute Code(s): F20.9 - Schizophrenia, unspecified Plan Ms. Dhillon is a 46 year-old woman with hx of schizophrenia, she asked staff at to call crisis as she reported hearing more voices and not trusting staff and peers at . Utox is negative. Pt reports taking medications as prescribed- combination of clozaril and perphenazine. Pt has guardian- sister, No [phone]. PLAN 1. Admit to [facility], cv 15 minutes checks for safety 2. continue current medications 3. obtain collateral information Patient educated on: diagnosis and medication risk/benefits Reason for continued inpatient stay Substantial Risk for: harm to self and inability to function
[2022-04-23 14:54] VITALS: BMI 48.2
--- NOTE | 2022-04-23 15:22 | PC.NURSE ---
Flu: Patient declined flu vaccine stating she had received about 2 months ago. Smoking: Patient stated she quit on day of arrival to [facility]. She declined any nicotine replacement.
--- NOTE | 2022-04-23 15:24 | PC.ADMIT ---
Patient is a 46 year old female, admitted from [facility] on a CV with a diagnosis of Unspecified Schizophrenia. Past medical history includes diabetes, and HTN. Precipitant for the admission: Patient is from [facility] home, but reports that 'it's terrible, staff are terrible. ' Concurrently, she is experiencing an increase in auditory hallucinations, despite being medication compliant. Per CARE note Yuni called EMS herself. Patient appears, during assessment, to be experiencing internal stimulation causing some delay in responses. She denies command hallucinations and denies visual hallucinations. Patient denies SI or HI. She arrived dressed in hospital clothing. Her responses to questions were brief, and at times, patient appeared irritable.
[2022-04-23 16:47] LABS: Glucose, Whole Blood 186 mg/dL (60-115)
[2022-04-23 22:25] VITALS: BP 130/69; PULSE 96; RESP 16; TEMP 36.1; O2SAT 95
[2022-04-23] MEDS: Divalproex Sodium ER 500 MG TAB.ER.24H 1000 MG PO (22:29)
[2022-04-23] MEDS: cloZAPine 100 MG TABLET 300 MG PO (22:30)
[2022-04-23] MEDS: Insulin Glargine,Hum.rec.anlog 100 UNIT/ML 10 ML VIAL 65 UNIT SUBCUT (22:34)
[2022-04-23 22:43] LABS: Glucose, Whole Blood 226 mg/dL (60-115)
[2022-04-24 09:08] LABS: Glucose, Whole Blood 187 mg/dL (60-115)
[2022-04-24 09:10] VITALS: BP 152/75; PULSE 118; RESP 18; TEMP 36.8; O2SAT 98
[2022-04-24] MEDS: Omeprazole 20 MG CAPSULE.DR PO (09:21)
[2022-04-24] MEDS: Benztropine Mesylate 1 MG TABLET PO ×2 (09:21→21:02)
[2022-04-24] MEDS: clonazePAM 0.5 MG TABLET PO (09:21)
[2022-04-24] MEDS: Docusate Sodium 100 MG CAPSULE PO ×2 (09:21→21:02)
[2022-04-24] MEDS: metFORMIN HCl ER 500 MG TAB.ER.24H 1000 MG PO ×2 (09:21→21:02)
[2022-04-24] MEDS: Perphenazine 4 MG TABLET PO ×2 (09:21→21:02)
[2022-04-24] MEDS: lisinopriL 2.5 MG TABLET PO (09:21)
[2022-04-24] MEDS: Metoprolol Tartrate 25 MG TABLET PO ×2 (09:21→21:02)
[2022-04-24] MEDS: cloZAPine 25 MG TABLET 50 MG PO (09:22)
[2022-04-24] MEDS: Ferrous Sulfate 324 MG TABLET.DR PO ×2 (09:22→21:02)
[2022-04-24] MEDS: Insulin Lispro 100 UNIT/ML 3 ML VIAL SUBCUT ×3 (09:22→18:18)
[2022-04-24] MEDS: Ascorbic Acid 500 MG TABLET PO ×2 (09:22→21:02)
[2022-04-24] MEDS: Sertraline HCL 100 MG TABLET PO (09:22)
[2022-04-24 10:35] LABS: Alanine Aminotransferase 34 U/L (0-31); Albumin Level 3.8 g/dL (3.5-5.0); Alkaline Phosphatase 65 U/L (39-117); Anion Gap 14 (12-20); Aspartate Amino Transferase 22 U/L (5-31); Bilirubin Total 0.2 mg/dL (0.0-1.0); Blood Urea Nitrogen 12 mg/dL (9-16); Calcium 9.2 mg/dL (8.4-10.2); Carbon Dioxide 27 mmol/L (22-29); Chloride 105 mmol/L (96-108); Cholesterol 142 mg/dL; Creatinine Clr Calc Pharmacy 129.6; Estimated Glomerular Filt Rate > 60; Free T4 (Free Thyroxine) 1.02 ng/dL (0.71-1.85); Glucose Fasting 188 mg/dL (60-99); HDL Cholesterol 24 mg/dL; LDL Cholesterol Calculated 78 mg/dl; Potassium 4.8 mmol/L (3.3-5.1); Sodium 141 mmol/L (135-145); Thyroid Stimulating Hormone 2.65 uIU/mL (0.32-4.0); Triglycerides 202 mg/dL
[2022-04-24 10:40] LABS: Folate 3.8 ng/mL (> or = 4.0); Vitamin B12 237 pg/mL (200-900)
[2022-04-24 12:28] LABS: Glucose, Whole Blood 220 mg/dL (60-115)
--- NOTE | 2022-04-24 13:24 | P.PNPSI_ITS ---
Subjective Subjective Date of Service: 04/24/22 Reason For Visit: SI Subjective Notes: Conditional Voluntary Interim History: Pt reports feeling tired. She reports voices are constant. She reports is multiple voices, derogatory at times. She reports she does not trust people at [facility] but unable to elaborate. No SI/HI. She is taking medications as prescribed. Medication Compliance: Yes Side effects from medications: No Review of Systems Review of Systems No fever no chills no chest pain or shortness breath for suicidal ideation positive depression Yes all other systems are reviewed and are negative Mental Status Exam Mental Status Exam Narrative: Appearance: wearing hospital gown, [place], in NAD Behavior: superficially cooperative Psychomotor: no agitation or retardation noted TP: linear TC: not feeling safe at , hearing voices Mood: tired Affect: congruent SI: none HI: none AH: reports hearing voices VH: none Delusions: paranoid delusions Insight/judgment: fair x 2. Memory/cog: alert, oriented x 3. not formally tested. Diagnostics Vital Signs (24Hr): Vital Signs - 24 hr 04/24/22 21:00 04/25/22 09:22 Temperature 97.3 F 96.7 F L Pulse Rate 102 H 106 H Respiratory Rate 18 16 Blood Pressure 127/71 134/71 Pulse Oximetry 95 99 Oxygen Delivery Method Room Air Room Air BMI result Body Mass Index 48.2 Labs Results: 04/23/22 12:17 04/24/22 08:49 Labs: Laboratory Results - last 48 hr 04/23/22 04/23/22 04/23/22 12:17 13:15 16:43 WBC 13.2 H RBC 4.75 Hgb 12.6 Hct 39.8 MCV 83.8 MCH 26.5 L MCHC 31.7 RDW 14.5 Plt Count 319 MPV 9.1 L Immature Gran % (Auto) 0.2 Neut % (Auto) 71.1 Lymph % (Auto) 22.1 [place] % (Auto) 5.5 Eos % (Auto) 0.9 Baso % (Auto) 0.2 Lymph # (Auto) 2.9 [place] # (Auto) 0.7 Eos # (Auto) 0.1 Baso # (Auto) 0.0 Abs Immat Gran (auto) 0.03 Absolute Neuts (auto) 9.4 H Absolute Nucleated RBC 0.000 Nucleated RBC % (auto) 0.0 Sodium Potassium Chloride Carbon Dioxide Anion Gap BUN Creatinine Estim Creat Clear Calc Estimated GFR POC Glucose 139 H 186 H Fasting Glucose Calcium Total Bilirubin AST ALT Alkaline Phosphatase Total Protein Albumin Triglycerides Cholesterol LDL Cholesterol, Calc HDL Cholesterol Vitamin B12 Folate TSH Free T4 04/23/22 04/24/22 04/24/22 22:27 08:49 08:49 WBC RBC Hgb Hct MCV MCH MCHC RDW Plt Count MPV Immature Gran % (Auto) Neut % (Auto) Lymph % (Auto) [place] % (Auto) Eos % (Auto) Baso % (Auto) Lymph # (Auto) [place] # (Auto) Eos # (Auto) Baso # (Auto) Abs Immat Gran (auto) Absolute Neuts (auto) Absolute Nucleated RBC Nucleated RBC % (auto) Sodium 141 Potassium 4.8 Chloride 105 Carbon Dioxide 27 Anion Gap 14 BUN 12 Creatinine 0.71 Estim Creat Clear Calc 129.6 Estimated GFR > 60 POC Glucose 226 H Fasting Glucose 188 H Calcium 9.2 Total Bilirubin 0.2 AST 22 ALT 34 H Alkaline Phosphatase 65 Total Protein 6.0 L Albumin 3.8 Triglycerides 202 Cholesterol 142 LDL Cholesterol, Calc 78 HDL Cholesterol 24 Vitamin B12 237 Folate 3.8 L TSH 2.65 Free T4 1.02 04/24/22 04/24/22 04/24/22 09:03 12:23 17:40 WBC RBC Hgb Hct MCV MCH MCHC RDW Plt Count MPV Immature Gran % (Auto) Neut % (Auto) Lymph % (Auto) [place] % (Auto) Eos % (Auto) Baso % (Auto) Lymph # (Auto) [place] # (Auto) Eos # (Auto) Baso # (Auto) Abs Immat Gran (auto) Absolute Neuts (auto) Absolute Nucleated RBC Nucleated RBC % (auto) Sodium Potassium Chloride Carbon Dioxide Anion Gap BUN Creatinine Estim Creat Clear Calc Estimated GFR POC Glucose 187 H 220 H 224 H Fasting Glucose Calcium Total Bilirubin AST ALT Alkaline Phosphatase Total Protein Albumin Triglycerides Cholesterol LDL Cholesterol, Calc HDL Cholesterol Vitamin B12 Folate TSH Free T4 04/24/22 04/25/22 20:55 08:40 WBC RBC Hgb Hct MCV MCH MCHC RDW Plt Count MPV Immature Gran % (Auto) Neut % (Auto) Lymph % (Auto) [place] % (Auto) Eos % (Auto) Baso % (Auto) Lymph # (Auto) [place] # (Auto) Eos # (Auto) Baso # (Auto) Abs Immat Gran (auto) Absolute Neuts (auto) Absolute Nucleated RBC Nucleated RBC % (auto) Sodium Potassium Chloride Carbon Dioxide Anion Gap BUN Creatinine Estim Creat Clear Calc Estimated GFR POC Glucose 261 H 214 H Fasting Glucose Calcium Total Bilirubin AST ALT Alkaline Phosphatase Total Protein Albumin Triglycerides Cholesterol LDL Cholesterol, Calc HDL Cholesterol Vitamin B12 Folate TSH Free T4 Medications Medications Current Medications Acetaminophen (Acetaminophen 325 Mg Tablet) 650 mg PO Q6H PRN PRN Reason: Headache/Pain Mild Scale (1-3) Al Hydroxide/Mg Hydroxide (Magnesium Hydrox/Alum Hydrox 30 Ml Oral.Susp) 30 ml PO Q6H PRN PRN Reason: Heartburn/Nausea Ascorbic Acid (Ascorbic Acid 500 Mg Tablet) 500 mg PO BID [facility] Last Admin: 04/25/22 09:02 Dose: 500 mg Benztropine Mesylate (Benztropine Mesylate 1 Mg Tablet) 1 mg PO BID [facility] Last Admin: 04/25/22 09:02 Dose: 1 mg Clonazepam (Clonazepam 0.5 Mg Tablet) 0.5 mg PO DAILY [facility] Last Admin: 04/25/22 09:02 Dose: 0.5 mg Clozapine (Clozapine 25 Mg Tablet) 50 mg PO DAILY [facility] Last Admin: 04/25/22 09:02 Dose: 50 mg Clozapine (Clozapine 100 Mg Tablet) 300 mg PO BEDTIME [facility] Last Admin: 04/24/22 21:02 Dose: 300 mg Divalproex Sodium (Divalproex Sodium Er 500 Mg Tab.Er.24h) 1,000 mg PO BEDTIME [facility] Last Admin: 04/24/22 21:02 Dose: 1,000 mg Docusate Sodium (Docusate Sodium 100 Mg Capsule) 100 mg PO BID [facility] Last Admin: 04/25/22 09:02 Dose: 100 mg Ferrous Sulfate (Ferrous Sulfate 324 Mg Tablet.Dr) 324 mg PO BID [facility] Last Admin: 04/25/22 09:02 Dose: 324 mg Hydroxyzine HCl (Hydroxyzine Hcl 25 Mg Tablet) 25 mg PO Q6H PRN PRN Reason: Anxiety Insulin Glargine (Insulin Glargine,Hum.Rec.Anlog 100 Unit/Ml 10 Ml Vial) 65 unit SUBCUT BEDTIME [facility] Last Admin: 04/24/22 21:03 Dose: 65 unit Insulin Human Lispro (Insulin Lispro 100 Unit/Ml 3 Ml Vial) 0 unit SUBCUT TID@ 0800,1200,1600 [facility]; Protocol Last Admin: 04/25/22 09:01 Dose: 4 unit Lisinopril (Lisinopril 2.5 Mg Tablet) 2.5 mg PO DAILY [facility]; Protocol Last Admin: 04/25/22 09:02 Dose: 2.5 mg Magnesium Hydroxide (Milk Of Magnesia 30 Ml Oral.Susp) 30 ml PO DAILY PRN PRN Reason: Constipation Metformin HCl (Metformin Hcl Er 500 Mg Tab.Er.24h) 1,000 mg PO BID [facility] Last Admin: 04/25/22 09:02 Dose: 1,000 mg Metoprolol Tartrate (Metoprolol Tartrate 25 Mg Tablet) 25 mg PO BID [facility]; Protocol Last Admin: 04/25/22 09:02 Dose: 25 mg Non-Formulary Medication (Dulaglutide [Trulicity]) 0.5 ml SUBCUT WE@0900 [facility] Omeprazole (Omeprazole 20 Mg Capsule.Dr) 20 mg PO DAILY@0630 [facility] Last Admin: 04/25/22 09:02 Dose: 20 mg Perphenazine (Perphenazine 4 Mg Tablet) 4 mg PO BID [facility] Last Admin: 04/25/22 09:02 Dose: 4 mg Sertraline HCl (Sertraline Hcl 100 Mg Tablet) 100 mg PO DAILY [facility] Last Admin: 04/25/22 09:02 Dose: 100 mg Trazodone HCl (Trazodone Hcl 50 Mg Tablet) 50 mg PO BEDTIME PRN PRN Reason: Insomnia Allergies Allergies Allergy/AdvReac Type Severity Reaction Status Date / Time Sulfa (Sulfonamide Allergy Intermediate PUFFY EYES Verified 04/22/22 06:14 Antibiotics) [SULFA (SULFONAMIDE ANTIBIOTICS)] Penicillins [PENICILLINS] Allergy Mild PT STATES Verified 04/22/22 06:14 NOTHING HAPPENS, ALLG LISTED ON TRANF SHEET Assessment & Plan Assessment & Plan (1) Schizophrenia: Status: Acute Code(s): F20.9 - Schizophrenia, unspecified Plan Ms. Dhillon is a 46 year-old woman with hx of schizophrenia, she asked staff at to call crisis as she reported hearing more voices and not trusting staff and peers at . Utox is negative. Pt reports taking medications as prescribed- combination of clozaril and perphenazine. Pt has guardian- sister, No [phone]. PLAN 1. Admit to [facility]3, cv 15 minutes checks for safety 2. continue current medications 3. obtain collateral information 04/24 continue current medications. pending collateral. I spent minutes with the patient and/or on the patient floor today, greater than?50% of which was spent counseling/coordinating care. Reason for contiued inpatient stay Substantial Risk for: inability to function
[2022-04-24 17:45] LABS: Glucose, Whole Blood 224 mg/dL (60-115)
[2022-04-24 21:00] VITALS: BP 127/71; PULSE 102; RESP 18; TEMP 36.3; O2SAT 95
[2022-04-24 21:00] LABS: Glucose, Whole Blood 261 mg/dL (60-115)
[2022-04-24] MEDS: cloZAPine 100 MG TABLET 300 MG PO (21:02)
[2022-04-24] MEDS: Divalproex Sodium ER 500 MG TAB.ER.24H 1000 MG PO (21:02)
[2022-04-24] MEDS: Insulin Glargine,Hum.rec.anlog 100 UNIT/ML 10 ML VIAL 65 UNIT SUBCUT (21:03)
[2022-04-25 08:45] LABS: Glucose, Whole Blood 214 mg/dL (60-115)
[2022-04-25] MEDS: Insulin Lispro 100 UNIT/ML 3 ML VIAL SUBCUT ×3 (09:01→18:10)
[2022-04-25] MEDS: Omeprazole 20 MG CAPSULE.DR PO (09:02)
[2022-04-25] MEDS: metFORMIN HCl ER 500 MG TAB.ER.24H 1000 MG PO ×2 (09:02→20:57)
[2022-04-25] MEDS: Metoprolol Tartrate 25 MG TABLET PO ×2 (09:02→20:57)
[2022-04-25] MEDS: Docusate Sodium 100 MG CAPSULE PO (09:02)
[2022-04-25] MEDS: lisinopriL 2.5 MG TABLET PO (09:02)
[2022-04-25] MEDS: Benztropine Mesylate 1 MG TABLET PO (09:02)
[2022-04-25] MEDS: Sertraline HCL 100 MG TABLET PO (09:02)
[2022-04-25] MEDS: Perphenazine 4 MG TABLET PO ×2 (09:02→20:57)
[2022-04-25] MEDS: Ferrous Sulfate 324 MG TABLET.DR PO ×2 (09:02→20:57)
[2022-04-25] MEDS: cloZAPine 25 MG TABLET 50 MG PO (09:02)
[2022-04-25] MEDS: clonazePAM 0.5 MG TABLET PO (09:02)
[2022-04-25] MEDS: Ascorbic Acid 500 MG TABLET PO ×2 (09:02→20:57)
[2022-04-25 09:22] VITALS: BP 134/71; PULSE 106; RESP 16; TEMP 35.9; O2SAT 99
[2022-04-25 10:28] LABS: Ammonia 26 umol/L (13-55)
[2022-04-25 10:42] LABS: Valproate 39.2 mcg/mL (50.0-100.0)
[2022-04-25] MEDS: Sennosides/Docusate Sodium TABLET 1 TAB PO ×2 (10:55→20:57)
[2022-04-25 12:25] LABS: Glucose, Whole Blood 269 mg/dL (60-115)
--- NOTE | 2022-04-25 14:46 | HO.PSYCHPN ---
Subjective Subjective Date of Service: 04/25/22 Reason For Visit: SI Subjective Notes: Conditional Voluntary Interim History: Pt mostly in bed. She reports feeling tired. She reports maybe hearing less voices. She adamantly denies SI/HI. poverty of thought. She is taking medications as prescribed. Medication Compliance: Yes Review of Systems Review of Systems No fever no chills no chest pain or shortness breath for suicidal ideation positive depression Yes all other systems are reviewed and are negative Mental Status Exam Mental Status Exam Narrative: Appearance: wearing hospital gown, [place], in NAD Behavior: superficially cooperative Psychomotor: no agitation or retardation noted TP: linear TC: not feeling safe at [facility], hearing voices Mood: tired Affect: congruent SI: none HI: none AH: reports hearing voices VH: none Delusions: paranoid delusions Insight/judgment: fair x 2. Memory/cog: alert, oriented x 3. not formally tested. Diagnostics Vital Signs (24Hr): Vital Signs - 24 hr 04/25/22 20:45 04/26/22 08:05 Temperature 97.6 F 97.4 F Pulse Rate 115 H 106 H Respiratory Rate 18 18 Blood Pressure 125/79 152/70 H Pulse Oximetry 96 98 Oxygen Delivery Method Room Air Room Air BMI result Body Mass Index 48.7 Labs Results: 04/23/22 12:17 04/24/22 08:49 Labs: Laboratory Results - last 48 hr 04/24/22 04/24/22 04/25/22 17:40 20:55 08:40 POC Glucose 224 H 261 H 214 H Ammonia Valproic Acid 04/25/22 04/25/22 04/25/22 10:07 10:07 12:19 POC Glucose 269 H Ammonia 26 Valproic Acid 39.2 L 04/25/22 04/25/22 04/26/22 17:19 20:45 08:46 POC Glucose 214 H 259 H 248 H Ammonia Valproic Acid 04/26/22 11:59 POC Glucose 238 H Ammonia Valproic Acid Medications Medications Current Medications Acetaminophen (Acetaminophen 325 Mg Tablet) 650 mg PO Q6H PRN PRN Reason: Headache/Pain Mild Scale (1-3) Al Hydroxide/Mg Hydroxide (Magnesium Hydrox/Alum Hydrox 30 Ml Oral.Susp) 30 ml PO Q6H PRN PRN Reason: Heartburn/Nausea Ascorbic Acid (Ascorbic Acid 500 Mg Tablet) 500 mg PO BID [facility] Last Admin: 04/26/22 09:00 Dose: 500 mg Clonazepam (Clonazepam 0.5 Mg Tablet) 0.5 mg PO DAILY [facility] Last Admin: 04/26/22 08:59 Dose: 0.5 mg Clozapine (Clozapine 25 Mg Tablet) 50 mg PO DAILY [facility] Last Admin: 04/26/22 08:59 Dose: 50 mg Clozapine (Clozapine 100 Mg Tablet) 300 mg PO BEDTIME [facility] Last Admin: 04/25/22 20:57 Dose: 300 mg Divalproex Sodium (Divalproex Sodium Er 500 Mg Tab.Er.24h) 1,000 mg PO BEDTIME [facility] Last Admin: 04/25/22 20:57 Dose: 1,000 mg Ferrous Sulfate (Ferrous Sulfate 324 Mg Tablet.) 324 mg PO BID [facility] Last Admin: 04/26/22 09:32 Dose: 324 mg Hydroxyzine HCl (Hydroxyzine Hcl 25 Mg Tablet) 25 mg PO Q6H PRN PRN Reason: Anxiety Insulin Glargine (Insulin Glargine,Hum.Rec.Anlog 100 Unit/Ml 10 Ml Vial) 65 unit SUBCUT BEDTIME [facility] Last Admin: 04/25/22 20:57 Dose: 65 unit Insulin Human Lispro (Insulin Lispro 100 Unit/Ml 3 Ml Vial) 0 unit SUBCUT TID@0800,1200,1600 [facility]; Protocol Last Admin: 04/26/22 12:12 Dose: 4 unit Lisinopril (Lisinopril 2.5 Mg Tablet) 2.5 mg PO DAILY [facility]; Protocol Last Admin: 04/26/22 09:01 Dose: 2.5 mg Magnesium Hydroxide (Milk Of Magnesia 30 Ml Oral.Susp) 30 ml PO DAILY PRN PRN Reason: Constipation Metformin HCl (Metformin Hcl Er 500 Mg Tab.Er.24h) 1,000 mg PO BID [facility] Last Admin: 04/26/22 09:00 Dose: 1,000 mg Metoprolol Tartrate (Metoprolol Tartrate 25 Mg Tablet) 25 mg PO BID [facility]; Protocol Last Admin: 04/26/22 08:58 Dose: 25 mg Omeprazole (Omeprazole 20 Mg Capsule.Dr) 20 mg PO DAILY@0630 [facility] Last Admin: 04/26/22 08:59 Dose: 20 mg Perphenazine (Perphenazine 4 Mg Tablet) 4 mg PO BID [facility] Last Admin: 04/26/22 09:01 Dose: 4 mg Senna/Docusate Sodium (Sennosides/Docusate Sodium Tablet) 1 tab PO BID [facility] Last Admin: 04/26/22 09:00 Dose: 1 tab Sertraline HCl (Sertraline Hcl 50 Mg Tablet) 50 mg PO DAILY [facility] Last Admin: 04/26/22 09:01 Dose: 50 mg Trazodone HCl (Trazodone Hcl 50 Mg Tablet) 50 mg PO BEDTIME PRN PRN Reason: Insomnia Allergies Allergies Allergy/AdvReac Type Severity Reaction Status Date / Time Sulfa (Sulfonamide Allergy Intermediate PUFFY EYES Verified 04/22/22 06:14 Antibiotics) [SULFA (SULFONAMIDE ANTIBIOTICS)] Penicillins [PENICILLINS] Allergy Mild PT STATES Verified 04/22/22 06:14 NOTHING HAPPENS, ALLG LISTED ON TRANF SHEET Assessment & Plan Assessment & Plan (1) Schizophrenia: Status: Acute Code(s): F20.9 - Schizophrenia, unspecified Plan Ms. Dhillon is a 46 year-old woman with hx of schizophrenia, she asked staff at to call crisis as she reported hearing more voices and not trusting staff and peers at . Utox is negative. Pt reports taking medications as prescribed- combination of clozaril and perphenazine. Pt has guardian- sister, No [phone]. PLAN 1. Admit to M3, cv 15 minutes checks for safety 2. continue current medications 3. obtain collateral information 04/24 continue current medications. pending collateral. 04/25 continue current medications- may lower sertraline as it may worsen psychosis. I spent minutes with the patient and/or on the patient floor today, greater than?50% of which was spent counseling/coordinating care. Reason for contiued inpatient stay Substantial Risk for: inability to function
[2022-04-25 17:24] LABS: Glucose, Whole Blood 214 mg/dL (60-115)
[2022-04-25 20:45] VITALS: BP 125/79; PULSE 115; RESP 18; TEMP 36.4; O2SAT 96
[2022-04-25 20:50] LABS: Glucose, Whole Blood 259 mg/dL (60-115)
[2022-04-25] MEDS: Insulin Glargine,Hum.rec.anlog 100 UNIT/ML 10 ML VIAL 65 UNIT SUBCUT (20:57)
[2022-04-25] MEDS: Divalproex Sodium ER 500 MG TAB.ER.24H 1000 MG PO (20:57)
[2022-04-25] MEDS: cloZAPine 100 MG TABLET 300 MG PO (20:57)
[2022-04-26 07:00] VITALS: BMI 48.7
[2022-04-26 08:05] VITALS: BP 152/70; PULSE 106; RESP 18; TEMP 36.3; O2SAT 98
[2022-04-26 08:55] LABS: Glucose, Whole Blood 248 mg/dL (60-115)
[2022-04-26] MEDS: Metoprolol Tartrate 25 MG TABLET PO ×2 (08:58→20:53)
[2022-04-26] MEDS: clonazePAM 0.5 MG TABLET PO (08:59)
[2022-04-26] MEDS: cloZAPine 25 MG TABLET 50 MG PO (08:59)
[2022-04-26] MEDS: Omeprazole 20 MG CAPSULE.DR PO (08:59)
[2022-04-26] MEDS: Sennosides/Docusate Sodium TABLET 1 TAB PO ×2 (09:00→20:53)
[2022-04-26] MEDS: metFORMIN HCl ER 500 MG TAB.ER.24H 1000 MG PO ×2 (09:00→20:53)
[2022-04-26] MEDS: Ascorbic Acid 500 MG TABLET PO ×2 (09:00→20:53)
[2022-04-26] MEDS: lisinopriL 2.5 MG TABLET PO (09:01)
[2022-04-26] MEDS: Sertraline HCL 50 MG TABLET PO (09:01)
[2022-04-26] MEDS: Perphenazine 4 MG TABLET PO ×2 (09:01→20:53)
[2022-04-26] MEDS: Insulin Lispro 100 UNIT/ML 3 ML VIAL SUBCUT ×3 (09:04→18:03)
[2022-04-26] MEDS: Ferrous Sulfate 324 MG TABLET.DR PO ×2 (09:32→20:53)
[2022-04-26 12:04] LABS: Glucose, Whole Blood 238 mg/dL (60-115)
--- NOTE | 2022-04-26 14:53 | HO.PSYCHPN ---
Subjective Subjective Date of Service: 04/26/22 Reason For Visit: SI Subjective Notes: Conditional Voluntary Interim History: Pt reports she continues to hear voices, yesterday she had said they were less but today she states she thinks is the same. She denies suicidal or homicidal ideation. Collateral information from sister- No- pt usually much more outgoing and brighter in affect.Collateral information from OP psych provider- Mo Mix- who reports pt always has voices but it appears that this time are more command- pt not providing much detail about content of voices but adamantly denies SI/HI. Medication Compliance: Yes Side effects from medications: No Attending Groups: No Review of Systems Review of Systems No fever no chills no chest pain or shortness breath for suicidal ideation positive depression Yes all other systems are reviewed and are negative Mental Status Exam Mental Status Exam Narrative: Appearance: wearing hospital gown, [place], in NAD Behavior: superficially cooperative Psychomotor: no agitation or retardation noted TP: linear TC: not feeling safe at , hearing voices Mood: tired Affect: congruent SI: none HI: none AH: reports hearing voices VH: none Delusions: paranoid delusions Insight/judgment: fair x 2. Memory/cog: alert, oriented x 3. not formally tested. Diagnostics Vital Signs (24Hr): Vital Signs - 24 hr 04/25/22 20:45 04/26/22 08:05 Temperature 97.6 F 97.4 F Pulse Rate 115 H 106 H Respiratory Rate 18 18 Blood Pressure 125/79 152/70 H Pulse Oximetry 96 98 Oxygen Delivery Method Room Air Room Air BMI result Body Mass Index 48.7 Labs Results: 04/23/22 12:17 04/24/22 08:49 Labs: Laboratory Results - last 48 hr 04/24/22 04/24/22 04/25/22 17:40 20:55 08:40 POC Glucose 224 H 261 H 214 H Ammonia Valproic Acid 04/25/22 04/25/22 04/25/22 10:07 10:07 12:19 POC Glucose 269 H Ammonia 26 Valproic Acid 39.2 L 04/25/22 04/25/22 04/26/22 17:19 20:45 08:46 POC Glucose 214 H 259 H 248 H Ammonia Valproic Acid 04/26/22 11:59 POC Glucose 238 H Ammonia Valproic Acid Medications Medications Current Medications Acetaminophen (Acetaminophen 325 Mg Tablet) 650 mg PO Q6H PRN PRN Reason: Headache/Pain Mild Scale (1-3) Al Hydroxide/Mg Hydroxide (Magnesium Hydrox/Alum Hydrox 30 Ml Oral.Susp) 30 ml PO Q6H PRN PRN Reason: Heartburn/Nausea Ascorbic Acid (Ascorbic Acid 500 Mg Tablet) 500 mg PO BID [facility] Last Admin: 04/26/22 09:00 Dose: 500 mg Clonazepam (Clonazepam 0.5 Mg Tablet) 0.5 mg PO DAILY [facility] Last Admin: 04/26/22 08:59 Dose: 0.5 mg Clozapine (Clozapine 25 Mg Tablet) 50 mg PO DAILY [facility] Last Admin: 04/26/22 08:59 Dose: 50 mg Clozapine (Clozapine 100 Mg Tablet) 300 mg PO BEDTIME [facility] Last Admin: 04/25/22 20:57 Dose: 300 mg Divalproex Sodium (Divalproex Sodium Er 500 Mg Tab.Er.24h) 1,000 mg PO BEDTIME [facility] Last Admin: 04/25/22 20:57 Dose: 1,000 mg Ferrous Sulfate (Ferrous Sulfate 324 Mg Tablet.Dr) 324 mg PO BID [facility] Last Admin: 04/26/22 09:32 Dose: 324 mg Hydroxyzine HCl (Hydroxyzine Hcl 25 Mg Tablet) 25 mg PO Q6H PRN PRN Reason: Anxiety Insulin Glargine (Insulin Glargine,Hum.Rec.Anlog 100 Unit/Ml 10 Ml Vial) 65 unit SUBCUT BEDTIME [facility] Last Admin: 04/25/22 20:57 Dose: 65 unit Insulin Human Lispro (Insulin Lispro 100 Unit/Ml 3 Ml Vial) 0 unit SUBCUT TID@0800,1200,1600 [facility]; Protocol Last Admin: 04/26/22 12:12 Dose: 4 unit Lisinopril (Lisinopril 2.5 Mg Tablet) 2.5 mg PO DAILY [facility]; Protocol Last Admin: 04/26/22 09:01 Dose: 2.5 mg Magnesium Hydroxide (Milk Of Magnesia 30 Ml Oral.Susp) 30 ml PO DAILY PRN PRN Reason: Constipation Metformin HCl (Metformin Hcl Er 500 Mg Tab.Er.24h) 1,000 mg PO BID [facility] Last Admin: 04/26/22 09:00 Dose: 1,000 mg Metoprolol Tartrate (Metoprolol Tartrate 25 Mg Tablet) 25 mg PO BID [facility]; Protocol Last Admin: 04/26/22 08:58 Dose: 25 mg Omeprazole (Omeprazole 20 Mg Capsule.) 20 mg PO DAILY@0630 [facility] Last Admin: 04/26/22 08:59 Dose: 20 mg Perphenazine (Perphenazine 4 Mg Tablet) 4 mg PO BID [facility] Last Admin: 04/26/22 09:01 Dose: 4 mg Senna/Docusate Sodium (Sennosides/Docusate Sodium Tablet) 1 tab PO BID [facility] Last Admin: 04/26/22 09:00 Dose: 1 tab Sertraline HCl (Sertraline Hcl 50 Mg Tablet) 50 mg PO DAILY [facility] Last Admin: 04/26/22 09:01 Dose: 50 mg Trazodone HCl (Trazodone Hcl 50 Mg Tablet) 50 mg PO BEDTIME PRN PRN Reason: Insomnia Allergies Allergies Allergy/AdvReac Type Severity Reaction Status Date / Time Sulfa (Sulfonamide Allergy Intermediate PUFFY EYES Verified 04/22/22 06:14 Antibiotics) [SULFA (SULFONAMIDE ANTIBIOTICS)] Penicillins [PENICILLINS] Allergy Mild PT STATES Verified 04/22/22 06:14 NOTHING HAPPENS, ALLG LISTED ON TRANF SHEET Assessment & Plan Assessment & Plan (1) Schizophrenia: Status: Acute Code(s): F20.9 - Schizophrenia, unspecified Plan Ms. Dhillon is a 46 year-old woman with hx of schizophrenia, she asked staff at to call crisis as she reported hearing more voices and not trusting staff and peers at . Utox is negative. Pt reports taking medications as prescribed- combination of clozaril and perphenazine. Pt has guardian- sister, No [phone]. PLAN 1. Admit to M3, cv 15 minutes checks for safety 2. continue current medications 3. obtain collateral information 04/24 continue current medications. pending collateral. 04/25 continue current medications- may lower sertraline as it may worsen psychosis. 04/26 pending clozaril levels, may consider switching perphenazine to prolixin. continue current medications. I spent minutes with the patient and/or on the patient floor today, greater than?50% of which was spent counseling/coordinating care. Reason for contiued inpatient stay Substantial Risk for: inability to function
[2022-04-26 17:58] LABS: Glucose, Whole Blood 233 mg/dL (60-115)
[2022-04-26 19:35] VITALS: BP 132/62; PULSE 113; RESP 16; TEMP 36.6; O2SAT 98
[2022-04-26 20:53] VITALS: BP 125/78; PULSE 111
[2022-04-26] MEDS: cloZAPine 100 MG TABLET 300 MG PO (20:53)
[2022-04-26] MEDS: Divalproex Sodium ER 500 MG TAB.ER.24H 1000 MG PO (20:53)
[2022-04-26 21:03] LABS: Glucose, Whole Blood 231 mg/dL (60-115)
[2022-04-26] MEDS: Insulin Glargine,Hum.rec.anlog 100 UNIT/ML 10 ML VIAL 65 UNIT SUBCUT (21:05)
[2022-04-27 08:00] VITALS: BP 128/59; PULSE 93; TEMP 35.9; O2SAT 95
[2022-04-27] MEDS: clonazePAM 0.5 MG TABLET PO (08:40)
[2022-04-27] MEDS: Sennosides/Docusate Sodium TABLET 1 TAB PO ×2 (08:40→20:44)
[2022-04-27] MEDS: Perphenazine 4 MG TABLET PO ×2 (08:40→20:43)
[2022-04-27] MEDS: metFORMIN HCl ER 500 MG TAB.ER.24H 1000 MG PO ×2 (08:40→20:43)
[2022-04-27] MEDS: cloZAPine 25 MG TABLET 50 MG PO (08:41)
[2022-04-27] MEDS: Ferrous Sulfate 324 MG TABLET.DR PO ×2 (08:41→20:43)
[2022-04-27] MEDS: Ascorbic Acid 500 MG TABLET PO ×2 (08:41→20:44)
[2022-04-27] MEDS: Omeprazole 20 MG CAPSULE.DR PO (08:42)
[2022-04-27] MEDS: Sertraline HCL 50 MG TABLET PO (08:42)
[2022-04-27 08:46] LABS: Glucose, Whole Blood 180 mg/dL (60-115)
[2022-04-27] MEDS: Insulin Lispro 100 UNIT/ML 3 ML VIAL SUBCUT ×3 (09:23→17:59)
[2022-04-27 10:36] LABS: MANUAL DIFF FLAG NO
[2022-04-27 10:41] LABS: Basophils Percent Auto 0.4 % (0-2); Eosinophils Absolute Auto 0.2 X10*3/uL (0.0-0.4); Eosinophils Percent Auto 1.6 % (0-4); Hematocrit 38.3 % (37.0-47.0); Hemoglobin 12.2 g/dl (12.0-16.0); Imm Gran Abs Auto 0.03 X10*3/uL (0.00-0.03); Imm Gran Pct Auto 0.3 % (0.0-0.4); Lymphocytes Absolute Auto 3.7 X10*3/uL (1.2-4.9); Lymphocytes Percent Auto 37.1 % (20-40); Mean Corpuscular HGB Conc 31.9 g/dl (31.0-35.0); Mean Corpuscular Hemoglobin 27.2 pg (27.0-33.0); Mean Corpuscular Volume 85.3 fL (80.0-98.0); Mean Platelet Volume 9.8 fL (9.4-12.3); Monocytes Absolute Auto 0.6 X10*3/uL (0.1-1.2); Monocytes Percent Auto 5.5 % (2-11); Neutrophils Absolute Auto 5.5 x10*3/uL (2.0-8.3); Neutrophils Percent Auto 55.1 % (45-73); Platelet Count 266 X10*3/uL (160-400); Red Blood Count 4.49 X10*6/uL (4.20-5.50); Red Cell Distribution Width 14.4 % (11.0-16.0)
[2022-04-27 12:22] LABS: Glucose, Whole Blood 190 mg/dL (60-115)
--- NOTE | 2022-04-27 13:12 | P.PNPSI_ITS ---
Subjective Subjective Date of Service: 04/27/22 Reason For Visit: SI Subjective Notes: Conditional Voluntary Interim History: Pt reports feeling better in that voices are less. She denies SI/HI. She has been more visible on the unit. She reports she has not taken a shower since admission- encouraged to do so. No behavioral concerns. Medication Compliance: Yes Side effects from medications: No Attending Groups: No Review of Systems Acute medical concerns: No Review of Systems Review of Systems No fever no chills no chest pain or shortness breath for suicidal ideation positive depression Yes all other systems are reviewed and are negative Mental Status Exam Mental Status Exam Narrative: Appearance: wearing hospital gown, MO, in NAD Behavior: superficially cooperative Psychomotor: no agitation or retardation noted TP: linear TC: not feeling safe at [facility], hearing voices Mood: tired Affect: congruent SI: none HI: none AH: reports hearing voices VH: none Delusions: paranoid delusions Insight/judgment: fair x 2. Memory/cog: alert, oriented x 3. not formally tested. Diagnostics Vital Signs (24Hr): Vital Signs - 24 hr 04/27/22 08:00 04/27/22 21:00 Temperature 96.7 F L 97.4 F Pulse Rate 93 80 Respiratory Rate 18 Blood Pressure 128/59 L 160/73 H Pulse Oximetry 95 100 Oxygen Delivery Method Room Air Room Air BMI result Body Mass Index 48.7 Labs Results: 04/27/22 10:29 04/24/22 08:49 Labs: Laboratory Results - last 48 hr 04/26/22 04/26/22 04/26/22 08:46 11:59 17:54 WBC RBC Hgb Hct MCV MCH MCHC RDW Plt Count MPV Immature Gran % (Auto) Neut % (Auto) Lymph % (Auto) [place] % (Auto) Eos % (Auto) Baso % (Auto) Lymph # (Auto) [place] # (Auto) Eos # (Auto) Baso # (Auto) Abs Immat Gran (auto) Absolute Neuts (auto) Absolute Nucleated RBC Nucleated RBC % (auto) POC Glucose 248 H 238 H 233 H 04/26/22 04/27/22 04/27/22 20:49 08:38 10:29 WBC 10.0 RBC 4.49 Hgb 12.2 Hct 38.3 MCV 85.3 MCH 27.2 MCHC 31.9 RDW 14.4 Plt Count 266 MPV 9.8 Immature Gran % (Auto) 0.3 Neut % (Auto) 55.1 Lymph % (Auto) 37.1 [place] % (Auto) 5.5 Eos % (Auto) 1.6 Baso % (Auto) 0.4 Lymph # (Auto) 3.7 [place] # (Auto) 0.6 Eos # (Auto) 0.2 Baso # (Auto) 0.0 Abs Immat Gran (auto) 0.03 Absolute Neuts (auto) 5.5 Absolute Nucleated RBC 0.000 Nucleated RBC % (auto) 0.0 POC Glucose 231 H 180 H 04/27/22 04/27/22 12:16 17:37 WBC RBC Hgb Hct MCV MCH MCHC RDW Plt Count MPV Immature Gran % (Auto) Neut % (Auto) Lymph % (Auto) [place] % (Auto) Eos % (Auto) Baso % (Auto) Lymph # (Auto) [place] # (Auto) Eos # (Auto) Baso # (Auto) Abs Immat Gran (auto) Absolute Neuts (auto) Absolute Nucleated RBC Nucleated RBC % (auto) POC Glucose 190 H 238 H Medications Medications Current Medications Acetaminophen (Acetaminophen 325 Mg Tablet) 650 mg PO Q6H PRN PRN Reason: Headache/Pain Mild Scale (1-3) Al Hydroxide/Mg Hydroxide (Magnesium Hydrox/Alum Hydrox 30 Ml Oral.Susp) 30 ml PO Q6H PRN PRN Reason: Heartburn/Nausea Ascorbic Acid (Ascorbic Acid 500 Mg Tablet) 500 mg PO BID [facility] Last Admin: 04/27/22 20:44 Dose: 500 mg Clonazepam (Clonazepam 0.5 Mg Tablet) 0.5 mg PO DAILY [facility] Last Admin: 04/27/22 08:40 Dose: 0.5 mg Clozapine (Clozapine 100 Mg Tablet) 300 mg PO BEDTIME [facility] Last Admin: 04/27/22 20:43 Dose: 300 mg Clozapine (Clozapine 25 Mg Tablet) 75 mg PO DAILY [facility] Divalproex Sodium (Divalproex Sodium Er 500 Mg Tab.Er.24h) 1,000 mg PO BEDTIME [facility] Last Admin: 04/27/22 20:43 Dose: 1,000 mg Ferrous Sulfate (Ferrous Sulfate 324 Mg Tablet.Dr) 324 mg PO BID [facility] Last Admin: 04/27/22 20:43 Dose: 324 mg Hydroxyzine HCl (Hydroxyzine Hcl 25 Mg Tablet) 25 mg PO Q6H PRN PRN Reason: Anxiety Insulin Glargine (Insulin Glargine,Hum.Rec.Anlog 100 Unit/Ml 10 Ml Vial) 65 unit SUBCUT BEDTIME [facility] Last Admin: 04/27/22 20:41 Dose: 65 unit Insulin Human Lispro (Insulin Lispro 100 Unit/Ml 3 Ml Vial) 0 unit SUBCUT TID@0800,1200,1600 [facility]; Protocol Last Admin: 04/27/22 17:59 Dose: 4 unit Lisinopril (Lisinopril 2.5 Mg Tablet) 2.5 mg PO DAILY [facility]; Protocol Last Admin: 04/27/22 08:42 Dose: Not Given Magnesium Hydroxide (Milk Of Magnesia 30 Ml Oral.Susp) 30 ml PO DAILY PRN PRN Reason: Constipation Metformin HCl (Metformin Hcl Er 500 Mg Tab.Er.24h) 1,000 mg PO BID [facility] Last Admin: 04/27/22 20:43 Dose: 1,000 mg Metoprolol Tartrate (Metoprolol Tartrate 25 Mg Tablet) 25 mg PO BID [facility]; Protoc ol Last Admin: 04/27/22 20:43 Dose: 25 mg Omeprazole (Omeprazole 20 Mg Capsule.Dr) 20 mg PO DAILY@0630 [facility] Last Admin: 04/27/22 08:42 Dose: 20 mg Perphenazine (Perphenazine 4 Mg Tablet) 4 mg PO BID [facility] Last Admin: 04/27/22 20:43 Dose: 4 mg Senna/Docusate Sodium (Sennosides/Docusate Sodium Tablet) 1 tab PO BID [facility] Last Admin: 04/27/22 20:44 Dose: 1 tab Sertraline HCl (Sertraline Hcl 50 Mg Tablet) 50 mg PO DAILY [facility] Last Admin: 04/27/22 08:42 Dose: 50 mg Trazodone HCl (Trazodone Hcl 50 Mg Tablet) 50 mg PO BEDTIME PRN PRN Reason: Insomnia Allergies Allergies Allergy/AdvReac Type Severity Reaction Status Date / Time Sulfa (Sulfonamide Allergy Intermediate PUFFY EYES Verified 04/22/22 06:14 Antibiotics) [SULFA (SULFONAMIDE ANTIBIOTICS)] Penicillins [PENICILLINS] Allergy Mild PT STATES Verified 04/22/22 06:14 NOTHING HAPPENS, ALLG LISTED ON TRANF SHEET Assessment & Plan Assessment & Plan (1) Schizophrenia: Status: Acute Code(s): F20.9 - Schizophrenia, unspecified Plan Ms. Dhillon is a 46 year-old woman with hx of schizophrenia, she asked staff at to call crisis as she reported hearing more voices and not trusting staff and peers at . Utox is negative. Pt reports taking medications as prescribed- combination of clozaril and perphenazine. Pt has guardian- sister, No [phone]. PLAN 1. Admit to , cv 15 minutes checks for safety 2. continue current medications 3. obtain collateral information 04/24 continue current medications. pending collateral. 04/25 continue current medications- may lower sertraline as it may worsen psychosis. 04/26 pending clozaril levels, may consider switching perphenazine to prolixin. continue current medications. 04/27 increase clozaril to 75mg po daily and 300mg po qhs. I spent minutes with the patient and/or on the patient floor today, greater than?50% of which was spent counseling/coordinating care. Reason for contiued inpatient stay Substantial Risk for: harm to self
[2022-04-27 17:40] LABS: Glucose, Whole Blood 238 mg/dL (60-115)
[2022-04-27] MEDS: Insulin Glargine,Hum.rec.anlog 100 UNIT/ML 10 ML VIAL 65 UNIT SUBCUT (20:41)
[2022-04-27] MEDS: cloZAPine 100 MG TABLET 300 MG PO (20:43)
[2022-04-27] MEDS: Metoprolol Tartrate 25 MG TABLET PO (20:43)
[2022-04-27] MEDS: Divalproex Sodium ER 500 MG TAB.ER.24H 1000 MG PO (20:43)
[2022-04-27 21:00] VITALS: BP 160/73; PULSE 80; RESP 18; TEMP 36.3; O2SAT 100
[2022-04-28 02:56] LABS: Glucose, Whole Blood 295 mg/dL (60-115)
[2022-04-28] MEDS: Omeprazole 20 MG CAPSULE.DR PO (07:20)
[2022-04-28 08:37] LABS: Glucose, Whole Blood 173 mg/dL (60-115)
[2022-04-28 08:50] VITALS: BP 104/56; PULSE 86; RESP 16; TEMP 36.3; O2SAT 98
[2022-04-28] MEDS: Metoprolol Tartrate 25 MG TABLET PO ×2 (08:55→21:01)
[2022-04-28] MEDS: Sennosides/Docusate Sodium TABLET 1 TAB PO ×2 (08:55→21:00)
[2022-04-28] MEDS: Perphenazine 4 MG TABLET PO ×2 (08:55→21:01)
[2022-04-28] MEDS: lisinopriL 2.5 MG TABLET PO (08:55)
[2022-04-28] MEDS: metFORMIN HCl ER 500 MG TAB.ER.24H 1000 MG PO ×2 (08:55→21:01)
[2022-04-28] MEDS: Ferrous Sulfate 324 MG TABLET.DR PO ×2 (08:55→21:01)
[2022-04-28] MEDS: clonazePAM 0.5 MG TABLET PO (08:55)
[2022-04-28] MEDS: cloZAPine 25 MG TABLET 75 MG PO (08:56)
[2022-04-28] MEDS: Ascorbic Acid 500 MG TABLET PO ×2 (08:56→21:01)
[2022-04-28] MEDS: Insulin Lispro 100 UNIT/ML 3 ML VIAL SUBCUT ×3 (08:56→18:00)
[2022-04-28] MEDS: Sertraline HCL 50 MG TABLET PO (08:56)
[2022-04-28 12:33] LABS: Glucose, Whole Blood 267 mg/dL (60-115)
--- NOTE | 2022-04-28 13:57 | P.PNPSI_ITS ---
Subjective Subjective Date of Service: 04/28/22 Reason For Visit: SI Medical Problems Affecting Mental Status: No Interim History: Met with patient. Discussed with Nursing. Review chart. Patient did allow nursing to help with showering today. She reports mood has been up and down. Also reports hearing voices all the time which has been happening for years. Was unclear she found these distressing or not. Non command. Tolerating current clozapine dosing. Sleep has been okay. Isolative. As per nursing could benefit from fungal cream for inframammary folds and inguinal area. Medication Compliance: Yes Side effects from medications: No Attending Groups: No Review of Systems Acute medical concerns: No Review of Systems Review of Systems benefit from cream for inframammary folds and inguinal area Mental Status Exam Mental Status Exam Narrative: Pleasant. Engaged. Very concrete. Poor self-care. Endorses mood being up and down, presents as flat. Endorses hallucinations all the time but non command in unclear if these are distressing. Denies SI or HI. No delusions. Insight and judgment fair Diagnostics Vital Signs (24Hr): Vital Signs - 24 hr 04/27/22 21:00 04/28/22 08:50 Temperature 97.4 F 97.4 F Pulse Rate 80 86 Respiratory Rate 18 16 Blood Pressure 160/73 H 104/56 L Pulse Oximetry 100 98 Oxygen Delivery Method Room Air Room Air BMI result Body Mass Index 48.7 Labs Results: 04/27/22 10:29 04/24/22 08:49 Labs: Laboratory Results - last 48 hr 04/26/22 04/26/22 04/27/22 17:54 20:49 08:38 WBC RBC Hgb Hct MCV MCH MCHC RDW Plt Count MPV Immature Gran % (Auto) Neut % (Auto) Lymph % (Auto) [place] % (Auto) Eos % (Auto) Baso % (Auto) Lymph # (Auto) [place] # (Auto) Eos # (Auto) Baso # (Auto) Abs Immat Gran (auto) Absolute Neuts (auto) Absolute Nucleated RBC Nucleated RBC % (auto) POC Glucose 233 H 231 H 180 H 04/27/22 04/27/22 04/27/22 10:29 12:16 17:37 WBC 10.0 RBC 4.49 Hgb 12.2 Hct 38.3 MCV 85.3 MCH 27.2 MCHC 31.9 RDW 14.4 Plt Count 266 MPV 9.8 Immature Gran % (Auto) 0.3 Neut % (Auto) 55.1 Lymph % (Auto) 37.1 [place] % (Auto) 5.5 Eos % (Auto) 1.6 Baso % (Auto) 0.4 Lymph # (Auto) 3.7 [place] # (Auto) 0.6 Eos # (Auto) 0.2 Baso # (Auto) 0.0 Abs Immat Gran (auto) 0.03 Absolute Neuts (auto) 5.5 Absolute Nucleated RBC 0.000 Nucleated RBC % (auto) 0.0 POC Glucose 190 H 238 H 04/27/22 04/28/22 04/28/22 20:29 08:33 12:28 WBC RBC Hgb Hct MCV MCH MCHC RDW Plt Count MPV Immature Gran % (Auto) Neut % (Auto) Lymph % (Auto) [place] % (Auto) Eos % (Auto) Baso % (Auto) Lymph # (Auto) [place] # (Auto) Eos # (Auto) Baso # (Auto) Abs Immat Gran (auto) Absolute Neuts (auto) Absolute Nucleated RBC Nucleated RBC % (auto) POC Glucose 295 H 173 H 267 H Medications Medications Current Medications Acetaminophen (Acetaminophen 325 Mg Tablet) 650 mg PO Q6H PRN PRN Reason: Headache/Pain Mild Scale (1-3) Al Hydroxide/Mg Hydroxide (Magnesium Hydrox/Alum Hydrox 30 Ml Oral.Susp) 30 ml PO Q6H PRN PRN Reason: Heartburn/Nausea Ascorbic Acid (Ascorbic Acid 500 Mg Tablet) 500 mg PO BID [facility] Last Admin: 04/28/22 08:56 Dose: 500 mg Clonazepam (Clonazepam 0.5 Mg Tablet) 0.5 mg PO DAILY [facility] Last Admin: 04/28/22 08:55 Dose: 0.5 mg Clozapine (Clozapine 100 Mg Tablet) 300 mg PO BEDTIME [facility] Last Admin: 04/27/22 20:43 Dose: 300 mg Clozapine (Clozapine 25 Mg Tablet) 75 mg PO DAILY [facility] Last Admin: 04/28/22 08:56 Dose: 75 mg Divalproex Sodium (Divalproex Sodium Er 500 Mg Tab.Er.24h) 1,000 mg PO BEDTIME [facility] Last Admin: 04/27/22 20:43 Dose: 1,000 mg Ferrous Sulfate (Ferrous Sulfate 324 Mg Tablet.Dr) 324 mg PO BID [facility] Last Admin: 04/28/22 08:55 Dose: 324 mg Hydroxyzine HCl (Hydroxyzine Hcl 25 Mg Tablet) 25 mg PO Q6H PRN PRN Reason: Anxiety Insulin Glargine (Insulin Glargine,Hum.Rec.Anlog 100 Unit/Ml 10 Ml Vial) 65 unit SUBCUT BEDTIME [facility] Last Admin: 04/27/22 20:41 Dose: 65 unit Insulin Human Lispro (Insulin Lispro 100 Unit/Ml 3 Ml Vial) 0 unit SUBCUT TID@0800,1200,1600 [facility]; Protocol Last Admin: 04/28/22 13:15 Dose: 6 unit Lisinopril (Lisinopril 2.5 Mg Tablet) 2.5 mg PO DAILY [facility]; Protocol Last Admin: 04/28/22 08:55 Dose: 2.5 mg Magnesium Hydroxide (Milk Of Magnesia 30 Ml Oral.Susp) 30 ml PO DAILY PRN PRN Reason: Constipation Metformin HCl (Metformin Hcl Er 500 Mg Tab.Er.24h) 1,000 mg PO BID [facility] Last Admin: 04/28/22 08:55 Dose: 1,000 mg Metoprolol Tartrate (Metoprolol Tartrate 25 Mg Tablet) 25 mg PO BID [facility]; Protocol Last Admin: 04/28/22 08:55 Dose: 25 mg Omeprazole (Omeprazole 20 Mg Capsule.Dr) 20 mg PO DAILY@0630 [facility] Last Admin: 04/28/22 07:20 Dose: 20 mg Perphenazine (Perphenazine 4 Mg Tablet) 4 mg PO BID [facility] Last Admin: 04/28/22 08:55 Dose: 4 mg Senna/Docusate Sodium (Sennosides/Docusate Sodium Tablet) 1 tab PO BID [facility] Last Admin: 04/28/22 08:55 Dose: 1 tab Sertraline HCl (Sertraline Hcl 50 Mg Tablet) 50 mg PO DAILY [facility] Last Admin: 04/28/22 08:56 Dose: 50 mg Trazodone HCl (Trazodone Hcl 50 Mg Tablet) 50 mg PO BEDTIME PRN PRN Reason: Insomnia Allergies Allergies Allergy/AdvReac Type Severity Reaction Status Date / Time Sulfa (Sulfonamide Allergy Intermediate PUFFY EYES Verified 04/22/22 06:14 Antibiotics) [SULFA (SULFONAMIDE ANTIBIOTICS)] Penicillins [PENICILLINS] Allergy Mild PT STATES Verified 04/22/22 06:14 NOTHING HAPPENS, ALLG LISTED ON TRANF SHEET Assessment & Plan Assessment & Plan (1) Schizophrenia: Status: Acute Code(s): F20.9 - Schizophrenia, unspecified Plan Ms. Dhillon is a 46 year-old woman with hx of schizophrenia, she asked staff at to call crisis as she reported hearing more voices and not trusting staff and peers at . Utox is negative. Pt reports taking medications as prescribed- combination of clozaril and perphenazine. Pt has guardian- sister, No [phone]. PLAN 1. Admit to M3, cv 15 minutes checks for safety 2. continue current medications 3. obtain collateral information 04/24 continue current medications. pending collateral. 04/25 continue current medications- may lower sertraline as it may worsen psychosis. 04/26 pending clozaril levels, may consider switching perphenazine to prolixin. continue current medications. 04/27 increase clozaril to 75mg po daily and 300mg po qhs. 04/28/2022: No changes to current regimen. Will add nystatin cream I spent minutes with the patient and/or on the patient floor today, greater than?50% of which was spent counseling/coordinating care. Reason for contiued inpatient stay Substantial Risk for: inability to function
[2022-04-28 17:44] LABS: Glucose, Whole Blood 248 mg/dL (60-115)
[2022-04-28 21:00] VITALS: BP 133/81; PULSE 100; RESP 18; TEMP 36.2; O2SAT 99
[2022-04-28] MEDS: Insulin Glargine,Hum.rec.anlog 100 UNIT/ML 10 ML VIAL 65 UNIT SUBCUT (21:00)
[2022-04-28] MEDS: cloZAPine 100 MG TABLET 300 MG PO (21:00)
[2022-04-28] MEDS: Divalproex Sodium ER 500 MG TAB.ER.24H 1000 MG PO (21:02)
[2022-04-28 21:33] LABS: Glucose, Whole Blood 317 mg/dL (60-115)
[2022-04-29] MEDS: Omeprazole 20 MG CAPSULE.DR PO (07:28)
[2022-04-29 08:42] LABS: Glucose, Whole Blood 178 mg/dL (60-115)
[2022-04-29 08:45] VITALS: BP 105/69; PULSE 91; RESP 18; TEMP 36.4; O2SAT 97
[2022-04-29] MEDS: Insulin Lispro 100 UNIT/ML 3 ML VIAL SUBCUT ×3 (08:45→17:53)
[2022-04-29] MEDS: Metoprolol Tartrate 25 MG TABLET PO ×2 (08:46→20:49)
[2022-04-29] MEDS: clonazePAM 0.5 MG TABLET PO (08:46)
[2022-04-29] MEDS: cloZAPine 25 MG TABLET 75 MG PO (08:46)
[2022-04-29] MEDS: Sertraline HCL 50 MG TABLET PO (08:46)
[2022-04-29] MEDS: Ascorbic Acid 500 MG TABLET PO ×2 (08:46→20:49)
[2022-04-29] MEDS: Sennosides/Docusate Sodium TABLET 1 TAB PO ×2 (08:46→20:49)
[2022-04-29] MEDS: metFORMIN HCl ER 500 MG TAB.ER.24H 1000 MG PO ×2 (08:46→20:48)
[2022-04-29] MEDS: lisinopriL 2.5 MG TABLET PO (08:46)
[2022-04-29] MEDS: Ferrous Sulfate 324 MG TABLET.DR PO ×2 (08:46→20:48)
[2022-04-29] MEDS: Perphenazine 4 MG TABLET PO ×2 (08:46→20:48)
[2022-04-29] MEDS: Nystatin Cream 15 GM TUBE 1 APPL TOPICAL ×2 (11:18→20:52)
[2022-04-29 12:48] LABS: Glucose, Whole Blood 179 mg/dL (60-115)
--- NOTE | 2022-04-29 13:44 | HO.PSYCHPN ---
Subjective Subjective Date of Service: 04/29/22 Reason For Visit: SI Interim History: Met with patient. Discussed with Nursing. Review chart. Did allow showering today. Also allowed nystatin cream to be administered. Reports that voices are slightly less today. Less depressed. Did attend the Art group with lots of encouragement. P Tolerating current clozapine dosing. Sleep has been okay. Isolative. Medication Compliance: Yes Side effects from medications: No Attending Groups: Intermittent Review of Systems Acute medical concerns: No Review of Systems Review of Systems Unremarkable Mental Status Exam Mental Status Exam Narrative: Pleasant. Engaged. Very concrete. Poor self-care. Endorses mood being up and down, presents as flat. Endorses hallucinations all the time but non command in unclear if these are distressing. Denies SI or HI. No delusions. Insight and judgment fair Diagnostics Vital Signs (24Hr): Vital Signs - 24 hr 04/28/22 21:00 04/29/22 08:45 Temperature 97.2 F 97.5 F Pulse Rate 100 91 Respiratory Rate 18 18 Blood Pressure 133/81 105/69 Pulse Oximetry 99 97 Oxygen Delivery Method Room Air Room Air BMI result Body Mass Index 48.7 Labs Results: 04/27/22 10:29 04/24/22 08:49 Labs: Laboratory Results - last 48 hr 04/27/22 04/27/22 04/28/22 17:37 20:29 08:33 POC Glucose 238 H 295 H 173 H 04/28/22 04/28/22 04/28/22 12:28 17:41 20:56 POC Glucose 267 H 248 H 317 H 04/29/22 04/29/22 08:36 12:41 POC Glucose 178 H 179 H Medications Medications Current Medications Acetaminophen (Acetaminophen 325 Mg Tablet) 650 mg PO Q6H PRN PRN Reason: Headache/Pain Mild Scale (1-3) Al Hydroxide/Mg Hydroxide (Magnesium Hydrox/Alum Hydrox 30 Ml Oral.Susp) 30 ml PO Q6H PRN PRN Reason: Heartburn/Nausea Ascorbic Acid (Ascorbic Acid 500 Mg Tablet) 500 mg PO BID [facility] Last Admin: 04/29/22 08:46 Dose: 500 mg Clonazepam (Clonazepam 0.5 Mg Tablet) 0.5 mg PO DAILY [facility] Last Admin: 04/29/22 08:46 Dose: 0.5 mg Clozapine (Clozapine 100 Mg Tablet) 300 mg PO BEDTIME [facility] Last Admin: 12/10/22 21:00 Dose: 300 mg Clozapine (Clozapine 25 Mg Tablet) 75 mg PO DAILY [facility] Last Admin: 04/29/22 08:46 Dose: 75 mg Divalproex Sodium (Divalproex Sodium Er 500 Mg Tab.Er.24h) 1,000 mg PO BEDTIME [facility] Last Admin: 04/28/22 21:02 Dose: 1,000 mg Ferrous Sulfate (Ferrous Sulfate 324 Mg Tablet.) 324 mg PO BID [facility] Last Admin: 04/29/22 08:46 Dose: 324 mg Hydroxyzine HCl (Hydroxyzine Hcl 25 Mg Tablet) 25 mg PO Q6H PRN PRN Reason: Anxiety Insulin Glargine (Insulin Glargine,Hum.Rec.Anlog 100 Unit/Ml 10 Ml Vial) 65 unit SUBCUT BEDTIME [facility] Last Admin: 04/28/22 21:00 Dose: 65 unit Insulin Human Lispro (Insulin Lispro 100 Unit/Ml 3 Ml Vial) 0 unit SUBCUT TID@0800,1200,1600 [facility]; Protocol Last Admin: 04/29/22 12:59 Dose: 2 unit Lisinopril (Lisinopril 2.5 Mg Tablet) 2.5 mg PO DAILY [facility]; Protocol Last Admin: 04/29/22 08:46 Dose: 2.5 mg Magnesium Hydroxide (Milk Of Magnesia 30 Ml Oral.Susp) 30 ml PO DAILY PRN PRN Reason: Constipation Metformin HCl (Metformin Hcl Er 500 Mg Tab.Er.24h) 1,000 mg PO BID [facility] Last Admin: 04/29/22 08:46 Dose: 1,000 mg Metoprolol Tartrate (Metoprolol Tartrate 25 Mg Tablet) 25 mg PO BID [facility]; Protocol Last Admin: 04/29/22 08:46 Dose: 25 mg Nystatin (Nystatin Cream 15 Gm Tube) 1 appl TOPICAL BID [facility]; Protocol Last Admin: 04/29/22 11:18 Dose: 1 appl Omeprazole (Omeprazole 20 Mg Capsule.) 20 mg PO DAILY@0630 [facility] Last Admin: 04/29/22 07:28 Dose: 20 mg Perphenazine (Perphenazine 4 Mg Tablet) 4 mg PO BID [facility] Last Admin: 04/29/22 08:46 Dose: 4 mg Senna/Docusate Sodium (Sennosides/Docusate Sodium Tablet) 1 tab PO BID [facility] Last Admin: 12/11/22 08:46 Dose: 1 tab Sertraline HCl (Sertraline Hcl 50 Mg Tablet) 50 mg PO DAILY [facility] Last Admin: 04/29/22 08:46 Dose: 50 mg Trazodone HCl (Trazodone Hcl 50 Mg Tablet) 50 mg PO BEDTIME PRN PRN Reason: Insomnia Allergies Allergies Allergy/AdvReac Type Severity Reaction Status Date / Time Sulfa (Sulfonamide Allergy Intermediate PUFFY EYES Verified 04/22/22 06:14 Antibiotics) [SULFA (SULFONAMIDE ANTIBIOTICS)] Penicillins [PENICILLINS] Allergy Mild PT STATES Verified 04/22/22 06:14 NOTHING HAPPENS, ALLG LISTED ON TRANF SHEET Assessment & Plan Assessment & Plan (1) Schizophrenia: Status: Acute Code(s): F20.9 - Schizophrenia, unspecified Plan Ms. Dhillon is a 46 year-old woman with hx of schizophrenia, she asked staff at to call crisis as she reported hearing more voices and not trusting staff and peers at . Utox is negative. Pt reports taking medications as prescribed- combination of clozaril and perphenazine. Pt has guardian- sister, No [phone]. PLAN 1. Admit to M3, cv 15 minutes checks for safety 2. continue current medications 3. obtain collateral information 04/24 continue current medications. pending collateral. 04/25 continue current medications- may lower sertraline as it may worsen psychosis. 04/26 pending clozaril levels, may consider switching perphenazine to prolixin. continue current medications. 04/27 increase clozaril to 75mg po daily and 300mg po qhs. 04/29/2022: No changes to current regimen. Will add nystatin cream I spent minutes with the patient and/or on the patient floor today, greater than?50% of which was spent counseling/coordinating care. Reason for contiued inpatient stay Substantial Risk for: inability to function
[2022-04-29 17:50] LABS: Glucose, Whole Blood 232 mg/dL (60-115)
[2022-04-29 20:30] VITALS: BP 143/65; PULSE 106; RESP 18; TEMP 36.5; O2SAT 98
[2022-04-29 20:44] LABS: Glucose, Whole Blood 294 mg/dL (60-115)
[2022-04-29] MEDS: Insulin Glargine,Hum.rec.anlog 100 UNIT/ML 10 ML VIAL 65 UNIT SUBCUT (20:47)
[2022-04-29] MEDS: cloZAPine 100 MG TABLET 300 MG PO (20:48)
[2022-04-29] MEDS: Divalproex Sodium ER 500 MG TAB.ER.24H 1000 MG PO (20:49)
[2022-04-30 01:19] LABS: Clozapine (Clozaril) 256 mcg/L; Norclozapine 74 mcg/L (25-400)
[2022-04-30 08:56] LABS: Glucose, Whole Blood 183 mg/dL (60-115)
[2022-04-30 09:00] VITALS: BP 135/73; PULSE 105; TEMP 36.6; O2SAT 97
[2022-04-30] MEDS: Metoprolol Tartrate 25 MG TABLET PO ×2 (09:01→20:54)
[2022-04-30] MEDS: Ascorbic Acid 500 MG TABLET PO ×2 (09:02→20:54)
[2022-04-30] MEDS: cloZAPine 25 MG TABLET 75 MG PO (09:02)
[2022-04-30] MEDS: clonazePAM 0.5 MG TABLET PO (09:03)
[2022-04-30] MEDS: lisinopriL 2.5 MG TABLET PO (09:03)
[2022-04-30] MEDS: metFORMIN HCl ER 500 MG TAB.ER.24H 1000 MG PO ×2 (09:03→20:54)
[2022-04-30] MEDS: Perphenazine 4 MG TABLET PO ×2 (09:03→20:54)
[2022-04-30] MEDS: Sennosides/Docusate Sodium TABLET 1 TAB PO ×2 (09:04→20:54)
[2022-04-30] MEDS: Insulin Lispro 100 UNIT/ML 3 ML VIAL SUBCUT ×3 (09:04→18:25)
[2022-04-30] MEDS: Omeprazole 20 MG CAPSULE.DR PO (09:04)
[2022-04-30] MEDS: Sertraline HCL 50 MG TABLET PO (09:04)
[2022-04-30] MEDS: Ferrous Sulfate 324 MG TABLET.DR PO ×2 (09:04→20:54)
--- NOTE | 2022-04-30 11:03 | HO.PSYCHPN ---
Subjective Subjective Date of Service: 04/30/22 Reason For Visit: SI Subjective Notes: Conditional Voluntary Interim History: Pt seen this morning. Pt reports sleeping okay. She reports feeling tired this morning but per nursing, pt has been more visible on the unit, social with select peers and has been showering more consistently. She continues to report hearing voices and not feeling safe to return to as she states there are some staff there that she can't trust. She reports passive SI. At times she reports voices may be less but unsure if this is the case. Clozaril levels received- metabolic ratio of 256:74 over 3.00, which shows some increase in clozaril level due to either inhibitions of 1A2, 2C19, 2D2 or 3A4 or recent infection. Pt usually is heavy smoker, so metabolic ratio expected to be less than 1.32 which is not what we are seing here. Review of Systems Review of Systems Unremarkable Yes all other systems are reviewed and are negative Mental Status Exam Mental Status Exam Narrative: Appearance: wearing hospital gown, [place], in NAD Behavior: superficially cooperative Psychomotor: no agitation or retardation noted TP: linear TC: not feeling safe at , hearing voices Mood: tired Affect: congruent SI: passive no plan or intent. HI: none AH: reports hearing voices, at times CAH VH: none Delusions: paranoid delusions Insight/judgment: fair x 2. Memory/cog: alert, oriented x 3. not formally tested. Diagnostics Vital Signs (24Hr): Vital Signs - 24 hr 04/29/22 20:30 04/30/22 09:00 Temperature 97.7 F 97.8 F Pulse Rate 106 H 105 H Respiratory Rate 18 Blood Pressure 143/65 H 135/73 Pulse Oximetry 98 97 Oxygen Delivery Method Room Air Room Air BMI result Body Mass Index 48.7 Labs Results: 04/27/22 10:29 04/24/22 08:49 Labs: Laboratory Results - last 48 hr 04/25/22 04/28/22 04/28/22 10:07 17:41 20:56 POC Glucose 248 H 317 H Clozapine 256 Norclozapine 74 04/29/22 04/29/22 04/29/22 08:36 12:41 17:46 POC Glucose 178 H 179 H 232 H Clozapine Norclozapine 04/29/22 04/30/22 20:40 08:47 POC Glucose 294 H 183 H Clozapine Norclozapine Medications Medications Current Medications Acetaminophen (Acetaminophen 325 Mg Tablet) 650 mg PO Q6H PRN PRN Reason: Headache/Pain Mild Scale (1-3) Al Hydroxide/Mg Hydroxide (Magnesium Hydrox/Alum Hydrox 30 Ml Oral.Susp) 30 ml PO Q6H PRN PRN Reason: Heartburn/Nausea Ascorbic Acid (Ascorbic Acid 500 Mg Tablet) 500 mg PO BID [facility] Last Admin: 04/30/22 09:02 Dose: 500 mg Clonazepam (Clonazepam 0.5 Mg Tablet) 0.5 mg PO DAILY PRN PRN Reason: anxiety Clozapine (Clozapine 100 Mg Tablet) 300 mg PO BEDTIME [facility] Last Admin: 04/29/22 20:48 Dose: 300 mg Clozapine (Clozapine 100 Mg Tablet) 100 mg PO DAILY [facility] Divalproex Sodium (Divalproex Sodium Er 500 Mg Tab.Er.24h) 1,000 mg PO BEDTIME [facility] Last Admin: 04/29/22 20:49 Dose: 1,000 mg Ferrous Sulfate (Ferrous Sulfate 324 Mg Tablet.Dr) 324 mg PO BID [facility] Last Admin: 04/30/22 09:04 Dose: 324 mg Hydroxyzine HCl (Hydroxyzine Hcl 25 Mg Tablet) 25 mg PO Q6H PRN PRN Reason: Anxiety Insulin Glargine (Insulin Glargine,Hum.Rec.Anlog 100 Unit/Ml 10 Ml Vial) 65 unit SUBCUT BEDTIME [facility] Last Admin: 04/29/22 20:47 Dose: 65 unit Insulin Human Lispro (Insulin Lispro 100 Unit/Ml 3 Ml Vial) 0 unit SUBCUT TID@0800,1200,1600 [facility]; Protocol Last Admin: 04/30/22 09:04 Dose: 2 unit Lisinopril (Lisinopril 2.5 Mg Tablet) 2.5 mg PO DAILY [facility]; Protocol Last Admin: 04/30/22 09:03 Dose: 2.5 mg Magnesium Hydroxide (Milk Of Magnesia 30 Ml Oral.Susp) 30 ml PO DAILY PRN PRN Reason: Constipation Metformin HCl (Metformin Hcl Er 500 Mg Tab.Er.24h) 1,000 mg PO BID [facility] Last Admin: 04/30/22 09:03 Dose: 1,000 mg Metoprolol Tartrate (Metoprolol Tartrate 25 Mg Tablet) 25 mg PO BID [facility]; Protocol Last Admin: 04/30/22 09:01 Dose: 25 mg Nystatin (Nystatin Cream 15 Gm Tube) 1 appl TOPICAL BID [facility]; Protocol Last Admin: 04/30/22 09:10 Dose: Not Given Omeprazole (Omeprazole 20 Mg Capsule.Dr) 20 mg PO DAILY@0630 [facility] Last Admin: 04/30/22 09:04 Dose: 20 mg Perphenazine (Perphenazine 4 Mg Tablet) 4 mg PO BID [facility] Last Admin: 04/30/22 09:03 Dose: 4 mg Senna/Docusate Sodium (Sennosides/Docusate Sodium Tablet) 1 tab PO BID [facility] Last Admin: 04/30/22 09:04 Dose: 1 tab Sertraline HCl (Sertraline Hcl 50 Mg Tablet) 50 mg PO DAILY [facility] Last Admin: 04/30/22 09:04 Dose: 50 mg Trazodone HCl (Trazodone Hcl 50 Mg Tablet) 50 mg PO BEDTIME PRN PRN Reason: Insomnia Allergies Allergies Allergy/AdvReac Type Severity Reaction Status Date / Time Sulfa (Sulfonamide Allergy Intermediate PUFFY EYES Verified 04/22/22 06:14 Antibiotics) [SULFA (SULFONAMIDE ANTIBIOTICS)] Penicillins [PENICILLINS] Allergy Mild PT STATES Verified 04/22/22 06:14 NOTHING HAPPENS, ALLG LISTED ON TRANF SHEET Assessment & Plan Assessment & Plan (1) Schizophrenia: Status: Acute Code(s): F20.9 - Schizophrenia, unspecified Plan Ms. Dhillon is a 46 year-old woman with hx of schizophrenia, she asked staff at to call crisis as she reported hearing more voices and not trusting staff and peers at . Utox is negative. Pt reports taking medications as prescribed- combination of clozaril and perphenazine. Pt has guardian- sister, No [phone]. PLAN 1. Admit to M3, cv 15 minutes checks for safety 2. continue current medications 3. obtain collateral information 04/24 continue current medications. pending collateral. 04/25 continue current medications- may lower sertraline as it may worsen psychosis. 04/26 pending clozaril levels, may consider switching perphenazine to prolixin. continue current medications. 04/27 increase clozaril to 75mg po daily and 300mg po qhs. 04/29/2022: No changes to current regimen. Will add nystatin cream 04/30 increase clozaril to 100mg po daily and 300mg po qhs. Clozaril levels received- metabolic ratio of 256:74 = MC> 3.00, which shows some increase in clozaril level due to either inhibitions of 1A2, 2C19, 2D2 or 3A4 or recent infection. Pt usually is heavy smoker, so metabolic ratio expected to be less than 1.32 which is not what we are seeing here. Will monitor excessive side effects such as sedation. Sister No- updated. I spent minutes with the patient and/or on the patient floor today, greater than?50% of which was spent counseling/coordinating care. Reason for contiued inpatient stay Substantial Risk for: inability to function Time Spent With Patient Time: Total time managing care of this patient today ____ minutes.
[2022-04-30 13:02] LABS: Glucose, Whole Blood 216 mg/dL (60-115)
[2022-04-30 18:10] LABS: Glucose, Whole Blood 204 mg/dL (60-115)
[2022-04-30 20:30] VITALS: BP 138/86; PULSE 112; RESP 18; TEMP 36.5; O2SAT 98
[2022-04-30 20:40] LABS: Glucose, Whole Blood 317 mg/dL (60-115)
[2022-04-30] MEDS: cloZAPine 100 MG TABLET 300 MG PO (20:54)
[2022-04-30] MEDS: Divalproex Sodium ER 500 MG TAB.ER.24H 1000 MG PO (20:54)
[2022-04-30] MEDS: Insulin Glargine,Hum.rec.anlog 100 UNIT/ML 10 ML VIAL 65 UNIT SUBCUT (20:56)
[2022-05-01 08:52] VITALS: BP 134/73; PULSE 103; RESP 20; TEMP 36.4; O2SAT 98
[2022-05-01] MEDS: cloZAPine 100 MG TABLET PO (08:54)
[2022-05-01] MEDS: metFORMIN HCl ER 500 MG TAB.ER.24H 1000 MG PO ×2 (08:54→21:29)
[2022-05-01] MEDS: Omeprazole 20 MG CAPSULE.DR PO (08:54)
[2022-05-01] MEDS: Sennosides/Docusate Sodium TABLET 1 TAB PO ×2 (08:55→21:28)
[2022-05-01] MEDS: Perphenazine 4 MG TABLET PO ×2 (08:55→21:28)
[2022-05-01] MEDS: Sertraline HCL 50 MG TABLET PO (08:55)
[2022-05-01] MEDS: Ferrous Sulfate 324 MG TABLET.DR PO ×2 (08:55→21:28)
[2022-05-01] MEDS: lisinopriL 2.5 MG TABLET PO (08:55)
[2022-05-01] MEDS: Metoprolol Tartrate 25 MG TABLET PO ×2 (08:55→21:29)
[2022-05-01] MEDS: Ascorbic Acid 500 MG TABLET PO ×2 (08:55→21:29)
[2022-05-01 09:04] LABS: Glucose, Whole Blood 195 mg/dL (60-115)
[2022-05-01] MEDS: Insulin Lispro 100 UNIT/ML 3 ML VIAL SUBCUT ×3 (09:04→18:01)
[2022-05-01] MEDS: Nystatin Cream 15 GM TUBE 1 APPL TOPICAL (09:06)
--- NOTE | 2022-05-01 09:54 | HO.PSYCHPN ---
Subjective Subjective Date of Service: 05/01/22 Reason For Visit: SI Subjective Notes: Conditional Voluntary Interim History: Pt reports voices may be less but she states she is not sure. She denies suicidal or homicidal ideation. She states she had a busy day yesterday. Per nursing, pt mostly in bed, did not attend groups. She was briefly visible on the unit. She is taking medications as prescribed. No side effects. Pt more open to take showers after much encouragement. Medication Compliance: Yes Side effects from medications: No Attending Groups: No Review of Systems Review of Systems Unremarkable Yes all other systems are reviewed and are negative Mental Status Exam Mental Status Exam Narrative: Appearance: wearing hospital gown, [place], in NAD Behavior: superficially cooperative Psychomotor: no agitation or retardation noted TP: linear TC: not feeling safe at [facility], hearing voices Mood: tired Affect: congruent SI: passive no plan or intent. HI: none AH: reports hearing voices, at times CAH VH: none Delusions: paranoid delusions Insight/judgment: fair x 2. Memory/cog: alert, oriented x 3. not formally tested. Diagnostics Vital Signs (24Hr): Vital Signs - 24 hr 04/30/22 20:30 05/01/22 08:52 Temperature 97.7 F 97.6 F Pulse Rate 112 H 103 H Respiratory Rate 18 20 Blood Pressure 138/86 134/73 Pulse Oximetry 98 98 Oxygen Delivery Method Room Air Room Air BMI result Body Mass Index 48.7 Labs Results: 04/27/22 10:29 04/24/22 08:49 Labs: Laboratory Results - last 48 hr 04/25/22 04/29/22 04/29/22 10:07 12:41 17:46 POC Glucose 179 H 232 H Clozapine 256 Norclozapine 74 04/29/22 04/30/22 04/30/22 20:40 08:47 12:57 POC Glucose 294 H 183 H 216 H Clozapine Norclozapine 04/30/22 04/30/22 05/01/22 18:05 20:35 09:01 POC Glucose 204 H 317 H 195 H Clozapine Norclozapine Medications Medications Current Medications Acetaminophen (Acetaminophen 325 Mg Tablet) 650 mg PO Q6H PRN PRN Reason: Headache/Pain Mild Scale (1-3) Al Hydroxide/Mg Hydroxide (Magnesium Hydrox/Alum Hydrox 30 Ml Oral.Susp) 30 ml PO Q6H PRN PRN Reason: Heartburn/Nausea Ascorbic Acid (Ascorbic Acid 500 Mg Tablet) 500 mg PO BID [facility] Last Admin: 05/01/22 08:55 Dose: 500 mg Clonazepam (Clonazepam 0.5 Mg Tablet) 0.5 mg PO DAILY PRN PRN Reason: anxiety Clozapine (Clozapine 100 Mg Tablet) 300 mg PO BEDTIME [facility] Last Admin: 04/30/22 20:54 Dose: 300 mg Clozapine (Clozapine 100 Mg Tablet) 100 mg PO DAILY [facility] Last Admin: 05/01/22 08:54 Dose: 100 mg Divalproex Sodium (Divalproex Sodium Er 500 Mg Tab.Er.24h) 1,000 mg PO BEDTIME [facility] Last Admin: 04/30/22 20:54 Dose: 1,000 mg Ferrous Sulfate (Ferrous Sulfate 324 Mg Tablet.Dr) 324 mg PO BID [facility] Last Admin: 05/01/22 08:55 Dose: 324 mg Hydroxyzine HCl (Hydroxyzine Hcl 25 Mg Tablet) 25 mg PO Q6H PRN PRN Reason: Anxiety Insulin Glargine (Insulin Glargine,Hum.Rec.Anlog 100 Unit/Ml 10 Ml Vial) 65 unit SUBCUT BEDTIME [facility] Last Admin: 04/30/22 20:56 Dose: 65 unit Insulin Human Lispro (Insulin Lispro 100 Unit/Ml 3 Ml Vial) 0 unit SUBCUT TID@0800,1200,1600 [facility]; Protocol Last Admin: 05/01/22 09:04 Dose: 2 unit Lisinopril (Lisinopril 2.5 Mg Tablet) 2.5 mg PO DAILY [facility]; Protocol Last Admin: 05/01/22 08:55 Dose: 2.5 mg Magnesium Hydroxide (Milk Of Magnesia 30 Ml Oral.Susp) 30 ml PO DAILY PRN PRN Reason: Constipation Metformin HCl (Metformin Hcl Er 500 Mg Tab.Er.24h) 1,000 mg PO BID [facility] Last Admin: 05/01/22 08:54 Dose: 1,000 mg Metoprolol Tartrate (Metoprolol Tartrate 25 Mg Tablet) 25 mg PO BID [facility]; Protocol Last Admin: 05/01/22 08:55 Dose: 25 mg Nystatin (Nystatin Cream 15 Gm Tube) 1 appl TOPICAL BID [facility]; Protocol Last Admin: 05/01/22 09:06 Dose: 1 appl Omeprazole (Omeprazole 20 Mg Capsule.) 20 mg PO DAILY@0630 [facility] Last Admin: 05/01/22 08:54 Dose: 20 mg Perphenazine (Perphenazine 4 Mg Tablet) 4 mg PO BID [facility] Last Admin: 05/01/22 08:55 Dose: 4 mg Senna/Docusate Sodium (Sennosides/Docusate Sodium Tablet) 1 tab PO BID [facility] Last Admin: 05/01/22 08:55 Dose: 1 tab Sertraline HCl (Sertraline Hcl 50 Mg Tablet) 50 mg PO DAILY [facility] Last Admin: 05/01/22 08:55 Dose: 50 mg Trazodone HCl (Trazodone Hcl 50 Mg Tablet) 50 mg PO BEDTIME PRN PRN Reason: Insomnia Allergies Allergies Allergy/AdvReac Type Severity Reaction Status Date / Time Sulfa (Sulfonamide Allergy Intermediate PUFFY EYES Verified 04/22/22 06:14 Antibiotics) [SULFA (SULFONAMIDE ANTIBIOTICS)] Penicillins [PENICILLINS] Allergy Mild PT STATES Verified 04/22/22 06:14 NOTHING HAPPENS, ALLG LISTED ON TRANF SHEET Assessment & Plan Assessment & Plan (1) Schizophrenia: Status: Acute Code(s): F20.9 - Schizophrenia, unspecified Plan Ms. Dhillon is a 46 year-old woman with hx of schizophrenia, she asked staff at to call crisis as she reported hearing more voices and not trusting staff and peers at . Utox is negative. Pt reports taking medications as prescribed- combination of clozaril and perphenazine. Pt has guardian- sister, No [phone]. PLAN 1. Admit to M3, cv 15 minutes checks for safety 2. continue current medications 3. obtain collateral information 04/24 continue current medications. pending collateral. 04/25 continue current medications- may lower sertraline as it may worsen psychosis. 04/26 pending clozaril levels, may consider switching perphenazine to prolixin. continue current medications. 04/27 increase clozaril to 75mg po daily and 300mg po qhs. 04/29/2022: No changes to current regimen. Will add nystatin cream 04/30 increase clozaril to 100mg po daily and 300mg po qhs. Clozaril levels received- metabolic ratio of 256:74 = MC> 3.00, which shows some increase in clozaril level due to either inhibitions of 1A2, 2C19, 2D2 or 3A4 or recent infection. Pt usually is heavy smoker, so metabolic ratio expected to be less than 1.32 which is not what we are seeing here. Will monitor excessive side effects such as sedation. Sister No- updated. 05/01 continue tx. staff to come to see her. I spent minutes with the patient and/or on the patient floor today, greater than?50% of which was spent counseling/coordinating care. Reason for contiued inpatient stay Substantial Risk for: inability to function Time Spent With Patient Time: Total time managing care of this patient today ____ minutes.
[2022-05-01 13:02] LABS: Glucose, Whole Blood 221 mg/dL (60-115)
[2022-05-01 18:05] LABS: Glucose, Whole Blood 305 mg/dL (60-115)
[2022-05-01] MEDS: cloZAPine 100 MG TABLET 300 MG PO (21:28)
[2022-05-01] MEDS: Divalproex Sodium ER 500 MG TAB.ER.24H 1000 MG PO (21:28)
[2022-05-01 21:30] VITALS: BP 135/81; PULSE 113; RESP 18; TEMP 36.3; O2SAT 98
[2022-05-01] MEDS: Insulin Glargine,Hum.rec.anlog 100 UNIT/ML 10 ML VIAL 65 UNIT SUBCUT (21:32)
[2022-05-01 21:44] LABS: Glucose, Whole Blood 240 mg/dL (60-115)
[2022-05-02 09:21] LABS: Glucose, Whole Blood 205 mg/dL (60-115)
[2022-05-02 09:29] VITALS: BP 162/83; PULSE 95; RESP 20; TEMP 36.2; O2SAT 95
[2022-05-02] MEDS: Sertraline HCL 50 MG TABLET PO (09:30)
[2022-05-02] MEDS: Ascorbic Acid 500 MG TABLET PO ×2 (09:30→22:08)
[2022-05-02] MEDS: cloZAPine 100 MG TABLET PO (09:30)
[2022-05-02] MEDS: Metoprolol Tartrate 25 MG TABLET PO ×2 (09:30→22:08)
[2022-05-02] MEDS: lisinopriL 2.5 MG TABLET PO (09:30)
[2022-05-02] MEDS: Sennosides/Docusate Sodium TABLET 1 TAB PO ×2 (09:30→22:08)
[2022-05-02] MEDS: metFORMIN HCl ER 500 MG TAB.ER.24H 1000 MG PO ×2 (09:30→22:08)
[2022-05-02] MEDS: Ferrous Sulfate 324 MG TABLET.DR PO ×2 (09:31→22:08)
[2022-05-02] MEDS: Insulin Lispro 100 UNIT/ML 3 ML VIAL SUBCUT ×3 (09:31→18:15)
[2022-05-02] MEDS: Omeprazole 20 MG CAPSULE.DR PO (09:32)
[2022-05-02] MEDS: Perphenazine 4 MG TABLET PO ×2 (09:35→22:07)
[2022-05-02 12:58] LABS: Glucose, Whole Blood 245 mg/dL (60-115)
--- NOTE | 2022-05-02 13:48 | HO.PSYCHPN ---
Subjective Subjective Date of Service: 05/02/22 Reason For Visit: SI Subjective Notes: Conditional Voluntary Interim History: Pt reports voices may be less but not sure. She reports last night she heard a male voices telling her derogatory comments. She denies SI/HI. She has been mostly in bed and in her room. Although when asked, she states she was very busy yesterday. She did agree to take a shower with much encouragement. She denies physical concerns and states that she feels less paranoid about returning to . Medication Compliance: Yes Review of Systems Review of Systems Unremarkable Yes all other systems are reviewed and are negative Mental Status Exam Mental Status Exam Narrative: Appearance: wearing hospital gown, [place], in NAD Behavior: superficially cooperative Psychomotor: no agitation or retardation noted TP: linear TC: not feeling safe at , hearing voices Mood: tired Affect: congruent SI: passive no plan or intent. HI: none AH: reports hearing voices, at times CAH VH: none Delusions: paranoid delusions Insight/judgment: fair x 2. Memory/cog: alert, oriented x 3. not formally tested. Diagnostics Vital Signs (24Hr): Vital Signs - 24 hr 05/01/22 21:30 05/02/22 09:29 Temperature 97.4 F 97.2 F Pulse Rate 113 H 95 Respiratory Rate 18 20 Blood Pressure 135/81 162/83 H Pulse Oximetry 98 95 Oxygen Delivery Method Room Air Room Air BMI result Body Mass Index 48.7 Labs Results: 04/27/22 10:29 04/24/22 08:49 Labs: Laboratory Results - last 48 hr 04/30/22 04/30/22 05/01/22 18:05 20:35 09:01 POC Glucose 204 H 317 H 195 H 05/01/22 05/01/22 05/01/22 12:57 17:58 21:32 POC Glucose 221 H 305 H 240 H 05/02/22 05/02/22 09:18 12:55 POC Glucose 205 H 245 H Medications Medications Current Medications Acetaminophen (Acetaminophen 325 Mg Tablet) 650 mg PO Q6H PRN PRN Reason: Headache/Pain Mild Scale (1-3) Al Hydroxide/Mg Hydroxide (Magnesium Hydrox/Alum Hydrox 30 Ml Oral.Susp) 30 ml PO Q6H PRN PRN Reason: Heartburn/Nausea Ascorbic Acid (Ascorbic Acid 500 Mg Tablet) 500 mg PO BID [facility] Last Admin: 05/02/22 09:30 Dose: 500 mg Clonazepam (Clonazepam 0.5 Mg Tablet) 0.5 mg PO DAILY PRN PRN Reason: anxiety Clozapine (Clozapine 100 Mg Tablet) 300 mg PO BEDTIME [facility] Last Admin: 05/01/22 21:28 Dose: 300 mg Clozapine (Clozapine 100 Mg Tablet) 100 mg PO DAILY [facility] Last Admin: 05/02/22 09:30 Dose: 100 mg Divalproex Sodium (Divalproex Sodium Er 500 Mg Tab.Er.24h) 1,000 mg PO BEDTIME [facility] Last Admin: 05/01/22 21:28 Dose: 1,000 mg Ferrous Sulfate (Ferrous Sulfate 324 Mg Tablet.) 324 mg PO BID [facility] Last Admin: 05/02/22 09:31 Dose: 324 mg Hydroxyzine HCl (Hydroxyzine Hcl 25 Mg Tablet) 25 mg PO Q6H PRN PRN Reason: Anxiety Insulin Glargine (Insulin Glargine,Hum.Rec.Anlog 100 Unit/Ml 10 Ml Vial) 65 unit SUBCUT BEDTIME [facility] Last Admin: 05/01/22 21:32 Dose: 65 unit Insulin Human Lispro (Insulin Lispro 100 Unit/Ml 3 Ml Vial) 0 unit SUBCUT TID@0800,1200,1600 [facility]; Protocol Last Admin: 05/02/22 12:59 Dose: 4 unit Lisinopril (Lisinopril 5 Mg Tablet) 5 mg PO DAILY [facility]; Protocol Magnesium Hydroxide (Milk Of Magnesia 30 Ml Oral.Susp) 30 ml PO DAILY PRN PRN Reason: Constipation Metformin HCl (Metformin Hcl Er 500 Mg Tab.Er.24h) 1,000 mg PO BID [facility] Last Admin: 05/02/22 09:30 Dose: 1,000 mg Metoprolol Tartrate (Metoprolol Tartrate 25 Mg Tablet) 25 mg PO BID [facility]; Protocol Last Admin: 05/02/22 09:30 Dose: 25 mg Nystatin (Nystatin Cream 15 Gm Tube) 1 appl TOPICAL BID [facility]; Protocol Last Admin: 05/02/22 09:35 Dose: Not Given Omeprazole (Omeprazole 20 Mg Capsule.) 20 mg PO DAILY@0630 [facility] Last Admin: 05/02/22 09:32 Dose: 20 mg Perphenazine (Perphenazine 4 Mg Tablet) 4 mg PO BID [facility] Last Admin: 05/02/22 09:35 Dose: 4 mg Senna/Docusate Sodium (Sennosides/Docusate Sodium Tablet) 1 tab PO BID [facility] Last Admin: 05/02/22 09:30 Dose: 1 tab Sertraline HCl (Sertraline Hcl 50 Mg Tablet) 50 mg PO DAILY [facility] Last Admin: 05/02/22 09:30 Dose: 50 mg Trazodone HCl (Trazodone Hcl 50 Mg Tablet) 50 mg PO BEDTIME PRN PRN Reason: Insomnia Allergies Allergies Allergy/AdvReac Type Severity Reaction Status Date / Time Sulfa (Sulfonamide Allergy Intermediate PUFFY EYES Verified 04/22/22 06:14 Antibiotics) [SULFA (SULFONAMIDE ANTIBIOTICS)] Penicillins [PENICILLINS] Allergy Mild PT STATES Verified 04/22/22 06:14 NOTHING HAPPENS, ALLG LISTED ON TRANF SHEET Assessment & Plan Assessment & Plan (1) Schizophrenia: Status: Acute Code(s): F20.9 - Schizophrenia, unspecified Plan Ms. Dhillon is a 46 year-old woman with hx of schizophrenia, she asked staff at to call crisis as she reported hearing more voices and not trusting staff and peers at . Utox is negative. Pt reports taking medications as prescribed- combination of clozaril and perphenazine. Pt has guardian- sister, No [phone]. PLAN 1. Admit to M3, cv 15 minutes checks for safety 2. continue current medications 3. obtain collateral information 04/24 continue current medications. pending collateral. 04/25 continue current medications- may lower sertraline as it may worsen psychosis. 04/26 pending clozaril levels, may consider switching perphenazine to prolixin. continue current medications. 04/27 increase clozaril to 75mg po daily and 300mg po qhs. 04/29/2022: No changes to current regimen. Will add nystatin cream 04/30 increase clozaril to 100mg po daily and 300mg po qhs. Clozaril levels received- metabolic ratio of 256:74 = MC> 3.00, which shows some increase in clozaril level due to either inhibitions of 1A2, 2C19, 2D2 or 3A4 or recent infection. Pt usually is heavy smoker, so metabolic ratio expected to be less than 1.32 which is not what we are seeing here. Will monitor excessive side effects such as sedation. Sister No- updated. 05/01 continue tx. staff to come to see her. 05/02 increase clozaril to 125mg po daily and 300mg po qhs. staff from will see her over zoom meeting tomorrow. Sister No updated. Lisinopril increased from 2.5mg po to 5mg po daily given SBP 160's. I spent minutes with the patient and/or on the patient floor today, greater than?50% of which was spent counseling/coordinating care. Reason for contiued inpatient stay Substantial Risk for: harm to self and inability to function Time Spent With Patient Time: Total time managing care of this patient today ____ minutes.
[2022-05-02 16:46] LABS: Glucose, Whole Blood 274 mg/dL (60-115)
[2022-05-02 21:55] VITALS: BP 143/86; PULSE 105; RESP 18; TEMP 36.7; O2SAT 98
[2022-05-02 22:03] LABS: Glucose, Whole Blood 302 mg/dL (60-115)
[2022-05-02] MEDS: Divalproex Sodium ER 500 MG TAB.ER.24H 1000 MG PO (22:08)
[2022-05-02] MEDS: cloZAPine 100 MG TABLET 300 MG PO (22:08)
[2022-05-02] MEDS: Insulin Glargine,Hum.rec.anlog 100 UNIT/ML 10 ML VIAL 65 UNIT SUBCUT (22:15)
[2022-05-03 09:00] VITALS: BP 142/86; PULSE 100; RESP 18; TEMP 36.6; O2SAT 98
[2022-05-03 09:22] LABS: Glucose, Whole Blood 205 mg/dL (60-115)
[2022-05-03] MEDS: Insulin Lispro 100 UNIT/ML 3 ML VIAL SUBCUT ×3 (09:23→18:01)
[2022-05-03] MEDS: cloZAPine 25 MG TABLET 125 MG PO (09:30)
[2022-05-03] MEDS: Ascorbic Acid 500 MG TABLET PO ×2 (09:33→22:27)
[2022-05-03] MEDS: Ferrous Sulfate 324 MG TABLET.DR PO ×2 (09:33→22:26)
[2022-05-03] MEDS: Perphenazine 4 MG TABLET PO ×2 (09:33→22:27)
[2022-05-03] MEDS: metFORMIN HCl ER 500 MG TAB.ER.24H 1000 MG PO ×2 (09:34→22:27)
[2022-05-03] MEDS: Sertraline HCL 50 MG TABLET PO (09:34)
[2022-05-03] MEDS: lisinopriL 5 MG TABLET PO (09:34)
[2022-05-03] MEDS: Metoprolol Tartrate 25 MG TABLET PO ×2 (09:34→22:27)
[2022-05-03] MEDS: Omeprazole 20 MG CAPSULE.DR PO (09:35)
[2022-05-03] MEDS: Sennosides/Docusate Sodium TABLET 1 TAB PO ×2 (09:36→22:27)
--- NOTE | 2022-05-03 10:36 | P.PNPSI_ITS ---
Subjective Subjective Date of Service: 05/03/22 Reason For Visit: SI Subjective Notes: Conditional Voluntary Interim History: Pt reports voices may be less but not sure. She had meeting with staff and sister, she states it went very well. However, they think she is not at baseline. She denies SI/HI. She has been mostly in bed and in her room. Although when asked, she states she was very busy yesterday. She did agree to take a shower with much encouragement. She denies physical concerns and states that she feels less paranoid about returning to . Review of Systems Review of Systems Unremarkable Yes all other systems are reviewed and are negative Mental Status Exam Mental Status Exam Narrative: Appearance: wearing hospital gown, MO, in NAD Behavior: superficially cooperative Psychomotor: no agitation or retardation noted TP: linear TC: not feeling safe at , hearing voices Mood: tired Affect: congruent SI: passive no plan or intent. HI: none AH: reports hearing voices, at times CAH VH: none Delusions: paranoid delusions Insight/judgment: fair x 2. Memory/cog: alert, oriented x 3. not formally tested. Diagnostics Vital Signs (24Hr): Vital Signs - 24 hr 05/04/22 22:35 Temperature 97.4 F Pulse Rate 129 H Respiratory Rate 18 Blood Pressure 130/71 Pulse Oximetry 97 Oxygen Delivery Method Room Air BMI result Body Mass Index 40.5 Labs Results: 04/27/22 10:29 05/03/22 09:05 Labs: Laboratory Results - last 48 hr 05/03/22 05/03/22 05/03/22 09:05 09:18 13:44 Absolute Neuts (auto) Creatinine 0.71 Estim Creat Clear Calc 130.4 Estimated GFR > 60 POC Glucose 205 H 265 H 05/03/22 05/03/22 05/04/22 17:54 22:15 08:10 Absolute Neuts (auto) 5.8 Creatinine Estim Creat Clear Calc Estimated GFR POC Glucose 262 H 308 H 05/04/22 05/04/22 05/04/22 08:33 12:23 17:43 Absolute Neuts (auto) Creatinine Estim Creat Clear Calc Estimated GFR POC Glucose 210 H 210 H 262 H 05/04/22 22:23 Absolute Neuts (auto) Creatinine Estim Creat Clear Calc Estimated GFR POC Glucose 290 H Medications Medications Current Medications Acetaminophen (Acetaminophen 325 Mg Tablet) 650 mg PO Q6H PRN PRN Reason: Headache/Pain Mild Scale (1-3) Al Hydroxide/Mg Hydroxide (Magnesium Hydrox/Alum Hydrox 30 Ml Oral.Susp) 30 ml PO Q6H PRN PRN Reason: Heartburn/Nausea Ascorbic Acid (Ascorbic Acid 500 Mg Tablet) 500 mg PO BID [facility] Last Admin: 05/04/22 22:36 Dose: 500 mg Clonazepam (Clonazepam 0.5 Mg Tablet) 0.5 mg PO DAILY PRN PRN Reason: anxiety Clozapine (Clozapine 100 Mg Tablet) 300 mg PO BEDTIME [facility] Last Admin: 05/04/22 22:35 Dose: 300 mg Clozapine (Clozapine 100 Mg Tablet) 100 mg PO DAILY [facility] Last Admin: 05/04/22 09:25 Dose: 100 mg Clozapine (Clozapine 25 Mg Tablet) 25 mg PO DAILY [facility] Last Admin: 05/04/22 09:25 Dose: 25 mg Divalproex Sodium (Divalproex Sodium Er 500 Mg Tab.Er.24h) 1,000 mg PO BEDTIME [facility] Last Admin: 05/04/22 22:36 Dose: 1,000 mg Ferrous Sulfate (Ferrous Sulfate 324 Mg Tablet.Dr) 324 mg PO BID [facility] Last Admin: 05/04/22 22:36 Dose: 324 mg Hydroxyzine HCl (Hydroxyzine Hcl 25 Mg Tablet) 25 mg PO Q6H PRN PRN Reason: Anxiety Insulin Glargine (Insulin Glargine,Hum.Rec.Anlog 100 Unit/Ml 10 Ml Vial) 65 unit SUBCUT BEDTIME [facility] Last Admin: 05/04/22 22:37 Dose: 65 unit Insulin Human Lispro (Insulin Lispro 100 Unit/Ml 3 Ml Vial) 0 unit SUBCUT TID@0800,1200,1600 [facility]; Protocol Last Admin: 05/04/22 17:58 Dose: 1 unit Lisinopril (Lisinopril 5 Mg Tablet) 5 mg PO DAILY [facility]; Protocol Last Admin: 05/04/22 09:25 Dose: 5 mg Magnesium Hydroxide (Milk Of Magnesia 30 Ml Oral.Susp) 30 ml PO DAILY PRN PRN Reason: Constipation Metformin HCl (Metformin Hcl Er 500 Mg Tab.Er.24h) 1,000 mg PO BID [facility] Last Admin: 05/04/22 22:36 Dose: 1,000 mg Metoprolol Tartrate (Metoprolol Tartrate 25 Mg Tablet) 25 mg PO BID [facility]; Protocol Last Admin: 05/04/22 22:36 Dose: 25 mg Nystatin (Nystatin Cream 15 Gm Tube) 1 appl TOPICAL BID [facility]; Protocol Last Admin: 05/04/22 22:47 Dose: 1 appl Omeprazole (Omeprazole 20 Mg Capsule.Dr) 20 mg PO DAILY@0630 [facility] Last Admin: 05/05/22 06:50 Dose: 20 mg Perphenazine (Perphenazine 4 Mg Tablet) 4 mg PO BID [facility] Last Admin: 05/04/22 22:36 Dose: 4 mg Senna/Docusate Sodium (Sennosides/Docusate Sodium Tablet) 1 tab PO BID [facility] Last Admin: 05/04/22 22:36 Dose: 1 tab Sertraline HCl (Sertraline Hcl 50 Mg Tablet) 50 mg PO DAILY [facility] Last Admin: 05/04/22 09:25 Dose: 50 mg Trazodone HCl (Trazodone Hcl 50 Mg Tablet) 50 mg PO BEDTIME PRN PRN Reason: Insomnia Allergies Allergies Allergy/AdvReac Type Severity Reaction Status Date / Time Sulfa (Sulfonamide Allergy Intermediate PUFFY EYES Verified 04/22/22 06:14 Antibiotics) [SULFA (SULFONAMIDE ANTIBIOTICS)] Penicillins [PENICILLINS] Allergy Mild PT STATES Verified 04/22/22 06:14 NOTHING HAPPENS, ALLG LISTED ON TRANF SHEET Assessment & Plan Assessment & Plan (1) Schizophrenia: Status: Acute Code(s): F20.9 - Schizophrenia, unspecified Plan Ms. Dhillon is a 46 year-old woman with hx of schizophrenia, she asked staff at to call crisis as she reported hearing more voices and not trusting staff and peers at . Utox is negative. Pt reports taking medications as prescribed- combination of clozaril and perphenazine. Pt has guardian- sister, No [phone]. PLAN 1. Admit to M3, cv 15 minutes checks for safety 2. continue current medications 3. obtain collateral information 04/24 continue current medications. pending collateral. 04/25 continue current medications- may lower sertraline as it may worsen psychosis. 04/26 pending clozaril levels, may consider switching perphenazine to prolixin. continue current medications. 04/27 increase clozaril to 75mg po daily and 300mg po qhs. 04/29/2022: No changes to current regimen. Will add nystatin cream 04/30 increase clozaril to 100mg po daily and 300mg po qhs. Clozaril levels received- metabolic ratio of 256:74 = MC> 3.00, which shows some increase in clozaril level due to either inhibitions of 1A2, 2C19, 2D2 or 3A4 or recent inf ection. Pt usually is heavy smoker, so metabolic ratio expected to be less than 1.32 which is not what we are seeing here. Will monitor excessive side effects such as sedation. Sister No- updated. 05/01 continue tx. staff to come to see her. 05/02 increase clozaril to 125mg po daily and 300mg po qhs. staff from will see her over zoom meeting tomorrow. Sister No updated. Lisinopril increased from 2.5mg po to 5mg po daily given SBP 160's. 05/03 continue tx. I spent minutes with the patient and/or on the patient floor today, greater than?50% of which was spent counseling/coordinating care. Reason for contiued inpatient stay Substantial Risk for: harm to self and inability to function Time Spent With Patient Time: Total time managing care of this patient today ____ minutes.
[2022-05-03 11:36] LABS: Creatinine Clr Calc Pharmacy 130.4; Estimated Glomerular Filt Rate > 60
[2022-05-03 13:49] LABS: Glucose, Whole Blood 265 mg/dL (60-115)
[2022-05-03 14:00] VITALS: BMI 40.5
[2022-05-03 17:58] LABS: Glucose, Whole Blood 262 mg/dL (60-115)
[2022-05-03 22:12] VITALS: BP 133/76; PULSE 110; RESP 18; TEMP 36.2; O2SAT 97
[2022-05-03 22:21] LABS: Glucose, Whole Blood 308 mg/dL (60-115)
[2022-05-03] MEDS: Divalproex Sodium ER 500 MG TAB.ER.24H 1000 MG PO (22:26)
[2022-05-03] MEDS: cloZAPine 100 MG TABLET 300 MG PO (22:27)
[2022-05-03] MEDS: Insulin Glargine,Hum.rec.anlog 100 UNIT/ML 10 ML VIAL 65 UNIT SUBCUT (22:33)
[2022-05-04 06:00] VITALS: BP 125/58; PULSE 100; RESP 18; TEMP 37.5; O2SAT 98
[2022-05-04 08:17] LABS: Neut%MD 56.4 %; Neutrophils Absolute Auto 5.8 x10*3/uL (2.0-8.3); WBCANC 10.2 X10*3/uL
[2022-05-04] MEDS: Insulin Lispro 100 UNIT/ML 3 ML VIAL SUBCUT ×3 (09:24→17:58)
[2022-05-04] MEDS: Ferrous Sulfate 324 MG TABLET.DR PO ×2 (09:24→22:36)
[2022-05-04] MEDS: Sennosides/Docusate Sodium TABLET 1 TAB PO ×2 (09:24→22:36)
[2022-05-04] MEDS: Ascorbic Acid 500 MG TABLET PO ×2 (09:24→22:36)
[2022-05-04] MEDS: metFORMIN HCl ER 500 MG TAB.ER.24H 1000 MG PO ×2 (09:24→22:36)
[2022-05-04] MEDS: Metoprolol Tartrate 25 MG TABLET PO ×2 (09:25→22:36)
[2022-05-04] MEDS: lisinopriL 5 MG TABLET PO (09:25)
[2022-05-04] MEDS: cloZAPine 25 MG TABLET PO (09:25)
[2022-05-04] MEDS: Omeprazole 20 MG CAPSULE.DR PO (09:25)
[2022-05-04] MEDS: Perphenazine 4 MG TABLET PO ×2 (09:25→22:36)
[2022-05-04] MEDS: Sertraline HCL 50 MG TABLET PO (09:25)
[2022-05-04] MEDS: cloZAPine 100 MG TABLET PO (09:25)
[2022-05-04 09:45] LABS: Glucose, Whole Blood 210 mg/dL (60-115)
--- NOTE | 2022-05-04 11:38 | P.PNPSI_ITS ---
Subjective Subjective Date of Service: 05/04/22 Reason For Visit: SI Subjective Notes: Conditional Voluntary Interim History: Pt reports voices may be less but not sure. She denies SI/HI. She has been mostly in bed and in her room. She continues to report she has been very busy. She did agree to take a shower with much encouragement. She denies physical concerns and states that she feels less paranoid about returning to . Review of Systems Review of Systems Unremarkable Yes all other systems are reviewed and are negative Mental Status Exam Mental Status Exam Narrative: Appearance: wearing hospital gown, MO, in NAD Behavior: superficially cooperative Psychomotor: no agitation or retardation noted TP: linear TC: not feeling safe at , hearing voices Mood: tired Affect: congruent SI: passive no plan or intent. HI: none AH: reports hearing voices, at times CAH VH: none Delusions: paranoid delusions Insight/judgment: fair x 2. Memory/cog: alert, oriented x 3. not formally tested. Diagnostics Vital Signs (24Hr): Vital Signs - 24 hr 05/04/22 22:35 Temperature 97.4 F Pulse Rate 129 H Respiratory Rate 18 Blood Pressure 130/71 Pulse Oximetry 97 Oxygen Delivery Method Room Air BMI result Body Mass Index 40.5 Labs Results: 04/27/22 10:29 05/03/22 09:05 Labs: Laboratory Results - last 48 hr 05/03/22 05/03/22 05/03/22 09:05 09:18 13:44 Absolute Neuts (auto) Creatinine 0.71 Estim Creat Clear Calc 130.4 Estimated GFR > 60 POC Glucose 205 H 265 H 05/03/22 05/03/22 05/04/22 17:54 22:15 08:10 Absolute Neuts (auto) 5.8 Creatinine Estim Creat Clear Calc Estimated GFR POC Glucose 262 H 308 H 05/04/22 05/04/22 05/04/22 08:33 12:23 17:43 Absolute Neuts (auto) Creatinine Estim Creat Clear Calc Estimated GFR POC Glucose 210 H 210 H 262 H 05/04/22 22:23 Absolute Neuts (auto) Creatinine Estim Creat Clear Calc Estimated GFR POC Glucose 290 H Medications Medications Current Medications Acetaminophen (Acetaminophen 325 Mg Tablet) 650 mg PO Q6H PRN PRN Reason: Headache/Pain Mild Scale (1-3) Al Hydroxide/Mg Hydroxide (Magnesium Hydrox/Alum Hydrox 30 Ml Oral.Susp) 30 ml PO Q6H PRN PRN Reason: Heartburn/Nausea Ascorbic Acid (Ascorbic Acid 500 Mg Tablet) 500 mg PO BID [facility] Last Admin: 05/04/22 22:36 Dose: 500 mg Clonazepam (Clonazepam 0.5 Mg Tablet) 0.5 mg PO DAILY PRN PRN Reason: anxiety Clozapine (Clozapine 100 Mg Tablet) 300 mg PO BEDTIME [facility] Last Admin: 05/04/22 22:35 Dose: 300 mg Clozapine (Clozapine 100 Mg Tablet) 100 mg PO DAILY [facility] Last Admin: 05/04/22 09:25 Dose: 100 mg Clozapine (Clozapine 25 Mg Tablet) 25 mg PO DAILY [facility] Last Admin: 05/04/22 09:25 Dose: 25 mg Divalproex Sodium (Divalproex Sodium Er 500 Mg Tab.Er.24h) 1,000 mg PO BEDTIME [facility] Last Admin: 05/04/22 22:36 Dose: 1,000 mg Ferrous Sulfate (Ferrous Sulfate 324 Mg Tablet.Dr) 324 mg PO BID [facility] Last Admin: 05/04/22 22:36 Dose: 324 mg Hydroxyzine HCl (Hydroxyzine Hcl 25 Mg Tablet) 25 mg PO Q6H PRN PRN Reason: Anxiety Insulin Glargine (Insulin Glargine,Hum.Rec.Anlog 100 Unit/Ml 10 Ml Vial) 65 unit SUBCUT BEDTIME [facility] Last Admin: 05/04/22 22:37 Dose: 65 unit Insulin Human Lispro (Insulin Lispro 100 Unit/Ml 3 Ml Vial) 0 unit SUBCUT TID@0800,1200,1600 [facility]; Protocol Last Admin: 05/04/22 17:58 Dose: 1 unit Lisinopril (Lisinopril 5 Mg Tablet) 5 mg PO DAILY [facility]; Protocol Last Admin: 05/04/22 09:25 Dose: 5 mg Magnesium Hydroxide (Milk Of Magnesia 30 Ml Oral.Susp) 30 ml PO DAILY PRN PRN Reason: Constipation Metformin HCl (Metformin Hcl Er 500 Mg Tab.Er.24h) 1,000 mg PO BID [facility] Last Admin: 05/04/22 22:36 Dose: 1,000 mg Metoprolol Tartrate (Metoprolol Tartrate 25 Mg Tablet) 25 mg PO BID [facility]; Protocol Last Admin: 05/04/22 22:36 Dose: 25 mg Nystatin (Nystatin Cream 15 Gm Tube) 1 appl TOPICAL BID [facility]; Protocol Last Admin: 05/04/22 22:47 Dose: 1 appl Omeprazole (Omeprazole 20 Mg Capsule.) 20 mg PO DAILY@0630 [facility] Last Admin: 05/05/22 06:50 Dose: 20 mg Perphenazine (Perphenazine 4 Mg Tablet) 4 mg PO BID [facility] Last Admin: 05/04/22 22:36 Dose: 4 mg Senna/Docusate Sodium (Sennosides/Docusate Sodium Tablet) 1 tab PO BID [facility] Last Admin: 05/04/22 22:36 Dose: 1 tab Sertraline HCl (Sertraline Hcl 50 Mg Tablet) 50 mg PO DAILY [facility] Last Admin: 05/04/22 09:25 Dose: 50 mg Trazodone HCl (Trazodone Hcl 50 Mg Tablet) 50 mg PO BEDTIME PRN PRN Reason: Insomnia Allergies Allergies Allergy/AdvReac Type Severity Reaction Status Date / Time Sulfa (Sulfonamide Allergy Intermediate PUFFY EYES Verified 04/22/22 06:14 Antibiotics) [SULFA (SULFONAMIDE ANTIBIOTICS)] Penicillins [PENICILLINS] Allergy Mild PT STATES Verified 04/22/22 06:14 NOTHING HAPPENS, ALLG LISTED ON TRANF SHEET Assessment & Plan Assessment & Plan (1) Schizophrenia: Status: Acute Code(s): F20.9 - Schizophrenia, unspecified Plan Ms. Dhillon is a 46 year-old woman with hx of schizophrenia, she asked staff at to call crisis as she reported hearing more voices and not trusting staff and peers at . Utox is negative. Pt reports taking medications as prescribed- combination of clozaril and perphenazine. Pt has guardian- sister, No [phone]. PLAN 1. Admit to M3, cv 15 minutes checks for safety 2. continue current medications 3. obtain collateral information 04/24 continue current medications. pending collateral. 04/25 continue current medications- may lower sertraline as it may worsen psychosis. 04/26 pending clozaril levels, may consider switching perphenazine to prolixin. continue current medications. 04/27 increase clozaril to 75mg po daily and 300mg po qhs. 04/29/2022: No changes to current regimen. Will add nystatin cream 04/30 increase clozaril to 100mg po daily and 300mg po qhs. Clozaril levels received- metabolic ratio of 256:74 = MC> 3.00, which shows some increase in clozaril level due to either inhibitions of 1A2, 2C19, 2D2 or 3A4 or recent infection. Pt usually is heavy smoker, so metabolic ratio expected to be less than 1.32 which is not what we are seeing here. Will monitor excessive side effects such as sedation. Sister No- updated. 05/01 continue tx. staff to come to see her. 05/02 increase clozaril to 125mg po daily and 300mg po qhs. staff from will see her over zoom meeting tomorrow. Sister No updated. Lisinopril increased from 2.5mg po to 5mg po daily given SBP 160's. 05/03 continue tx. 05/04 continue tx. I spent minutes with the patient and/or on the patient floor today, greater than?50% of which was spent counseling/coordinating care. Reason for contiued inpatient stay Substantial Risk for: inability to function Time Spent With Patient Time: Total time managing care of this patient today ____ minutes.
[2022-05-04 12:27] LABS: Glucose, Whole Blood 210 mg/dL (60-115)
[2022-05-04 17:48] LABS: Glucose, Whole Blood 262 mg/dL (60-115)
[2022-05-04 22:27] LABS: Glucose, Whole Blood 290 mg/dL (60-115)
[2022-05-04 22:35] VITALS: BP 130/71; PULSE 129; RESP 18; TEMP 36.3; O2SAT 97
[2022-05-04] MEDS: cloZAPine 100 MG TABLET 300 MG PO (22:35)
[2022-05-04] MEDS: Divalproex Sodium ER 500 MG TAB.ER.24H 1000 MG PO (22:36)
[2022-05-04] MEDS: Insulin Glargine,Hum.rec.anlog 100 UNIT/ML 10 ML VIAL 65 UNIT SUBCUT (22:37)
[2022-05-04] MEDS: Nystatin Cream 15 GM TUBE 1 APPL TOPICAL (22:47)
[2022-05-05] MEDS: Omeprazole 20 MG CAPSULE.DR PO (06:50)
[2022-05-05 08:05] VITALS: BP 130/73; PULSE 115; RESP 20; TEMP 36.6; O2SAT 99
[2022-05-05 08:51] LABS: Glucose, Whole Blood 247 mg/dL (60-115)
[2022-05-05] MEDS: cloZAPine 25 MG TABLET PO (09:00)
[2022-05-05] MEDS: Perphenazine 4 MG TABLET PO ×2 (09:00→22:13)
[2022-05-05] MEDS: metFORMIN HCl ER 500 MG TAB.ER.24H 1000 MG PO ×2 (09:01→22:13)
[2022-05-05] MEDS: Ascorbic Acid 500 MG TABLET PO ×2 (09:01→22:14)
[2022-05-05] MEDS: Metoprolol Tartrate 25 MG TABLET PO ×2 (09:01→22:15)
[2022-05-05] MEDS: cloZAPine 100 MG TABLET PO (09:02)
[2022-05-05] MEDS: lisinopriL 5 MG TABLET PO (09:03)
[2022-05-05] MEDS: Ferrous Sulfate 324 MG TABLET.DR PO ×2 (09:03→22:15)
[2022-05-05] MEDS: Sennosides/Docusate Sodium TABLET 1 TAB PO ×2 (09:03→22:13)
[2022-05-05] MEDS: Sertraline HCL 50 MG TABLET PO (09:03)
[2022-05-05] MEDS: Insulin Lispro 100 UNIT/ML 3 ML VIAL SUBCUT ×3 (09:04→17:41)
[2022-05-05] MEDS: Nystatin Cream 15 GM TUBE 1 APPL TOPICAL ×2 (09:08→22:17)
[2022-05-05 12:39] LABS: Glucose, Whole Blood 324 mg/dL (60-115)
--- NOTE | 2022-05-05 15:25 | P.PNPSI_ITS ---
Subjective Subjective Date of Service: 05/05/22 Reason For Visit: SI Subjective Notes: Conditional Voluntary Interim History: Pt reports voices may be less but not sure. She denies SI/HI. She has been mostly in bed and in her room. She continues to report she has been very busy. She did agree to take a shower with much encouragement. She denies physical concerns and states that she feels less paranoid about returning to . Diagnostics Vital Signs (24Hr): Vital Signs - 24 hr 05/04/22 22:35 05/05/22 08:05 Temperature 97.4 F 97.8 F Pulse Rate 129 H 115 H Respiratory Rate 18 20 Blood Pressure 130/71 130/73 Pulse Oximetry 97 99 Oxygen Delivery Method Room Air Room Air BMI result Body Mass Index 40.5 Labs 04/27/22 10:29 05/03/22 09:05 Labs: Laboratory Results - last 48 hr 05/03/22 05/03/22 05/04/22 17:54 22:15 08:10 Absolute Neuts (auto) 5.8 POC Glucose 262 H 308 H 05/04/22 05/04/22 05/04/22 08:33 12:23 17:43 Absolute Neuts (auto) POC Glucose 210 H 210 H 262 H 05/04/22 05/05/22 05/05/22 22:23 08:25 12:34 Absolute Neuts (auto) POC Glucose 290 H 247 H 324 H Medications Medications Current Medications Acetaminophen (Acetaminophen 325 Mg Tablet) 650 mg PO Q6H PRN PRN Reason: Headache/Pain Mild Scale (1-3) Al Hydroxide/Mg Hydroxide (Magnesium Hydrox/Alum Hydrox 30 Ml Oral.Susp) 30 ml PO Q6H PRN PRN Reason: Heartburn/Nausea Ascorbic Acid (Ascorbic Acid 500 Mg Tablet) 500 mg PO BID [facility] Last Admin: 05/05/22 09:01 Dose: 500 mg Clozapine (Clozapine 100 Mg Tablet) 300 mg PO BEDTIME [facility] Last Admin: 05/04/22 22:35 Dose: 300 mg Clozapine (Clozapine 100 Mg Tablet) 100 mg PO DAILY [facility] Last Admin: 05/05/22 09:02 Dose: 100 mg Clozapine (Clozapine 25 Mg Tablet) 25 mg PO DAILY [facility] Last Admin: 05/05/22 09:00 Dose: 25 mg Divalproex Sodium (Divalproex Sodium Er 500 Mg Tab.Er.24h) 1,000 mg PO BEDTIME [facility] Last Admin: 05/04/22 22:36 Dose: 1,000 mg Ferrous Sulfate (Ferrous Sulfate 324 Mg Tablet.) 324 mg PO BID [facility] Last Admin: 05/05/22 09:03 Dose: 324 mg Hydroxyzine HCl (Hydroxyzine Hcl 25 Mg Tablet) 25 mg PO Q6H PRN PRN Reason: Anxiety Insulin Glargine (Insulin Glargine,Hum.Rec.Anlog 100 Unit/Ml 10 Ml Vial) 65 unit SUBCUT BEDTIME [facility] Last Admin: 05/04/22 22:37 Dose: 65 unit Insulin Human Lispro (Insulin Lispro 100 Unit/Ml 3 Ml Vial) 0 unit SUBCUT TID@0800,1200,1600 [facility]; Protocol Last Admin: 05/05/22 12:44 Dose: 8 unit Lisinopril (Lisinopril 5 Mg Tablet) 5 mg PO DAILY [facility]; Protocol Last Admin: 05/05/22 09:03 Dose: 5 mg Magnesium Hydroxide (Milk Of Magnesia 30 Ml Oral.Susp) 30 ml PO DAILY PRN PRN Reason: Constipation Metformin HCl (Metformin Hcl Er 500 Mg Tab.Er.24h) 1,000 mg PO BID [facility] Last Admin: 05/05/22 09:01 Dose: 1,000 mg Metoprolol Tartrate (Metoprolol Tartrate 25 Mg Tablet) 25 mg PO BID [facility]; Protocol Last Admin: 05/05/22 09:01 Dose: 25 mg Nystatin (Nystatin Cream 15 Gm Tube) 1 appl TOPICAL BID [facility]; Protocol Last Admin: 05/05/22 09:08 Dose: 1 appl Omeprazole (Omeprazole 20 Mg Capsule.) 20 mg PO DAILY@0630 [facility] Last Admin: 05/05/22 06:50 Dose: 20 mg Perphenazine (Perphenazine 4 Mg Tablet) 4 mg PO BID [facility] Last Admin: 05/05/22 09:00 Dose: 4 mg Senna/Docusate Sodium (Sennosides/Docusate Sodium Tablet) 1 tab PO BID [facility] Last Admin: 05/05/22 09:03 Dose: 1 tab Sertraline HCl (Sertraline Hcl 50 Mg Tablet) 50 mg PO DAILY [facility] Last Admin: 05/05/22 09:03 Dose: 50 mg Trazodone HCl (Trazodone Hcl 50 Mg Tablet) 50 mg PO BEDTIME PRN PRN Reason: Insomnia Allergies Allergies Allergy/AdvReac Type Severity Reaction Status Date / Time Sulfa (Sulfonamide Allergy Intermediate PUFFY EYES Verified 04/22/22 06:14 Antibiotics) [SULFA (SULFONAMIDE ANTIBIOTICS)] Penicillins [PENICILLINS] Allergy Mild PT STATES Verified 04/22/22 06:14 NOTHING HAPPENS, ALLG LISTED ON TRANF SHEET Assessment & Plan Assessment & Plan (1) Schizophrenia: Status: Acute Code(s): F20.9 - Schizophrenia, unspecified Plan Ms. Dhillon is a 46 year-old woman with hx of schizophrenia, she asked staff at to call crisis as she reported hearing more voices and not trusting staff and peers at . Utox is negative. Pt reports taking medications as prescribed- combination of clozaril and perphenazine. Pt has guardian- sister, No [phone]. PLAN 1. Admit to M3, cv 15 minutes checks for safety 2. continue current medications 3. obtain collateral information 04/24 continue current medications. pending collateral. 04/25 continue current medications- may lower sertraline as it may worsen psychosis. 04/26 pending clozaril levels, may consider switching perphenazine to prolixin. continue current medications. 04/27 increase clozaril to 75mg po daily and 300mg po qhs. 04/29/2022: No changes to current regimen. Will add nystatin cream 04/30 increase clozaril to 100mg po daily and 300mg po qhs. Clozaril levels received- metabolic ratio of 256:74 = MC> 3.00, which shows some increase in clozaril level due to either inhibitions of 1A2, 2C19, 2D2 or 3A4 or recent infection. Pt usually is heavy smoker, so metabolic ratio expected to be less than 1.32 which is not what we are seeing here. Will monitor excessive side effects such as sedation. Sister No- updated. 05/01 continue tx. staff to come to see her. 05/02 increase clozaril to 125mg po daily and 300mg po qhs. staff from will see her over zoom meeting tomorrow. Sister No updated. Lisinopril increased from 2.5mg po to 5mg po daily given SBP 160's. 05/03 continue tx. 05/04 continue tx. 05/05 continue treatment plan I spent minutes with the patient and/or on the patient floor today, greater than?50% of which was spent counseling/coordinating care. Reason for contiued inpatient stay Substantial Risk for: harm to self, inability to function and rapid decompensation Time Spent With Patient Time: Total time managing care of this patient today ____ minutes.
[2022-05-05 17:34] LABS: Glucose, Whole Blood 242 mg/dL (60-115)
[2022-05-05 21:45] VITALS: BP 144/64; PULSE 110; RESP 18; TEMP 36.4; O2SAT 100
[2022-05-05 22:02] LABS: Glucose, Whole Blood 302 mg/dL (60-115)
[2022-05-05] MEDS: traZODone HCL 50 MG TABLET PO (22:13)
[2022-05-05] MEDS: cloZAPine 100 MG TABLET 300 MG PO (22:14)
[2022-05-05] MEDS: Divalproex Sodium ER 500 MG TAB.ER.24H 1000 MG PO (22:15)
[2022-05-05] MEDS: Insulin Glargine,Hum.rec.anlog 100 UNIT/ML 10 ML VIAL 65 UNIT SUBCUT (22:17)
[2022-05-06 06:00] VITALS: BP 118/69; PULSE 108; RESP 18; TEMP 36.3; O2SAT 99
[2022-05-06 08:38] LABS: Glucose, Whole Blood 180 mg/dL (60-115)
[2022-05-06] MEDS: Metoprolol Tartrate 25 MG TABLET PO ×2 (08:40→21:37)
[2022-05-06] MEDS: Ascorbic Acid 500 MG TABLET PO ×2 (08:40→21:37)
[2022-05-06] MEDS: Sertraline HCL 50 MG TABLET PO (08:40)
[2022-05-06] MEDS: Ferrous Sulfate 324 MG TABLET.DR PO ×2 (08:40→21:38)
[2022-05-06] MEDS: Sennosides/Docusate Sodium TABLET 1 TAB PO ×2 (08:40→21:37)
[2022-05-06] MEDS: Insulin Lispro 100 UNIT/ML 3 ML VIAL SUBCUT ×3 (08:41→17:33)
[2022-05-06] MEDS: Omeprazole 20 MG CAPSULE.DR PO (08:41)
[2022-05-06] MEDS: metFORMIN HCl ER 500 MG TAB.ER.24H 1000 MG PO ×2 (08:41→21:37)
[2022-05-06] MEDS: cloZAPine 100 MG TABLET PO (08:41)
[2022-05-06] MEDS: cloZAPine 25 MG TABLET PO (08:41)
[2022-05-06] MEDS: lisinopriL 5 MG TABLET PO (08:41)
[2022-05-06] MEDS: Perphenazine 4 MG TABLET PO ×2 (08:41→21:37)
--- NOTE | 2022-05-06 09:51 | HO.PSYCHPN ---
Subjective Subjective Date of Service: 04/16/22 Reason For Visit: SI Medical Problems Affecting Mental Status: Yes (DM, variable POC) Interim History: Discussed with team. POC's are improving yet remain variable- 247, 324, 242, 302, 180 05/05-05/06 Team reports hygiene is poor, however pt did participate in a shower yesterday. Spending much time in bed, however, not sleeping per team report. Met with pt who reports feeling well, denies medical or psychiatric symptoms of concern. Does report feeling tired and plans to return to bed as breakfast is just completed. Reports adequate sleep during the night, which team confirms. Denies SI,HI. Denies perceptual alterations. Reports at home she prefers to be alone and continuing this pattern in hospital. Does not appear preoccupied currently, but apprehensive with a new person and uncomfortable with discussion. Medication Compliance: Yes Side effects from medications: No Attending Groups: Intermittent Review of Systems Acute medical concerns: No Medical Review of Systems: unchanged Mental Status Exam Mental Status Exam Patient Appearance: Unkempt Patient Orientation: Person, Place, Time and Situation Level of Consciousness: Alert Patient Behavior: Guarded, Cooperative and Good Eye Contact Mood Description: Constricted Affect Description: Constricted Patient Cognition Impaired: No Ability to Follow Directions: Fair Speech Pattern: Spontaneous Speech Memory Description: Episodic Impaired Hallucinations: Auditory Delusions: Paranoid Ideation Thought Process: Distracted Thought Content: positive for [place], positive for Circumstantial and positive for Suicidal Ideation (denies) Depressive Symptoms: Thoughts of /Suicide (denies) Judgement: Fair Diagnostics Vital Signs (24Hr): Vital Signs - 24 hr 05/05/22 21:45 05/06/22 06:00 Temperature 97.6 F 97.3 F Pulse Rate 110 H 108 H Respiratory Rate 18 18 Blood Pressure 144/64 H 118/69 Pulse Oximetry 100 99 Oxygen Delivery Method Room Air Room Air BMI result Body Mass Index 40.5 Labs Results: 04/27/22 10:29 05/03/22 09:05 Labs: Laboratory Results - last 48 hr 05/04/22 05/04/22 05/04/22 12:23 17:43 22:23 POC Glucose 210 H 262 H 290 H 05/05/22 05/05/22 05/05/22 08:25 12:34 17:30 POC Glucose 247 H 324 H 242 H 05/05/22 05/06/22 21:49 08:34 POC Glucose 302 H 180 H Medications Medications Current Medications Acetaminophen (Acetaminophen 325 Mg Tablet) 650 mg PO Q6H PRN PRN Reason: Headache/Pain Mild Scale (1-3) Al Hydroxide/Mg Hydroxide (Magnesium Hydrox/Alum Hydrox 30 Ml Oral.Susp) 30 ml PO Q6H PRN PRN Reason: Heartburn/Nausea Ascorbic Acid (Ascorbic Acid 500 Mg Tablet) 500 mg PO BID [facility] Last Admin: 05/06/22 08:40 Dose: 500 mg Clozapine (Clozapine 100 Mg Tablet) 300 mg PO BEDTIME [facility] Last Admin: 05/05/22 22:14 Dose: 300 mg Clozapine (Clozapine 100 Mg Tablet) 100 mg PO DAILY [facility] Last Admin: 05/06/22 08:41 Dose: 100 mg Clozapine (Clozapine 25 Mg Tablet) 25 mg PO DAILY [facility] Last Admin: 05/06/22 08:41 Dose: 25 mg Divalproex Sodium (Divalproex Sodium Er 500 Mg Tab.Er.24h) 1,000 mg PO BEDTIME [facility] Last Admin: 05/05/22 22:15 Dose: 1,000 mg Ferrous Sulfate (Ferrous Sulfate 324 Mg Tablet.Dr) 324 mg PO BID [facility] Last Admin: 05/06/22 08:40 Dose: 324 mg Hydroxyzine HCl (Hydroxyzine Hcl 25 Mg Tablet) 25 mg PO Q6H PRN PRN Reason: Anxiety Insulin Glargine (Insulin Glargine,Hum.Rec.Anlog 100 Unit/Ml 10 Ml Vial) 65 unit SUBCUT BEDTIME [facility] Last Admin: 05/05/22 22:17 Dose: 65 unit Insulin Human Lispro (Insulin Lispro 100 Unit/Ml 3 Ml Vial) 0 unit SUBCUT TID@0800,1200,1600 [facility]; Protocol Last Admin: 05/06/22 08:41 Dose: 2 unit Lisinopril (Lisinopril 5 Mg Tablet) 5 mg PO DAILY [facility]; Protocol Last Admin: 05/06/22 08:41 Dose: 5 mg Magnesium Hydroxide (Milk Of Magnesia 30 Ml Oral.Susp) 30 ml PO DAILY PRN PRN Reason: Constipation Metformin HCl (Metformin Hcl Er 500 Mg Tab.Er.24h) 1,000 mg PO BID [facility] Last Admin: 05/06/22 08:41 Dose: 1,000 mg Metoprolol Tartrate (Metoprolol Tartrate 25 Mg Tablet) 25 mg PO BID [facility]; Protocol Last Admin: 05/06/22 08:40 Dose: 25 mg Nystatin (Nystatin Cream 15 Gm Tube) 1 appl TOPICAL BID [facility]; Protocol Last Admin: 05/06/22 09:01 Dose: Not Given Omeprazole (Omeprazole 20 Mg Capsule.Dr) 20 mg PO DAILY@0630 [facility] Last Admin: 05/06/22 08:41 Dose: 20 mg Perphenazine (Perphenazine 4 Mg Tablet) 4 mg PO BID [facility] Last Admin: 05/06/22 08:41 Dose: 4 mg Senna/Docusate Sodium (Sennosides/Docusate Sodium Tablet) 1 tab PO BID [facility] Last Admin: 05/06/22 08:40 Dose: 1 tab Sertraline HCl (Sertraline Hcl 50 Mg Tablet) 50 mg PO DAILY [facility] Last Admin: 05/06/22 08:40 Dose: 50 mg Trazodone HCl (Trazodone Hcl 50 Mg Tablet) 50 mg PO BEDTIME PRN PRN Reason: Insomnia Last Admin: 05/05/22 22:13 Dose: 50 mg Allergies Allergies Allergy/AdvReac Type Severity Reaction Status Date / Time Sulfa (Sulfonamide Allergy Intermediate PUFFY EYES Verified 04/22/22 06:14 Antibiotics) [SULFA (SULFONAMIDE ANTIBIOTICS)] Penicillins [PENICILLINS] Allergy Mild PT STATES Verified 04/22/22 06:14 NOTHING HAPPENS, ALLG LISTED ON TRANF SHEET Assessment & Plan Assessment & Plan (1) Schizophrenia: Status: Acute Code(s): F20.9 - Schizophrenia, unspecified Plan Ms. Dhillon is a 46 year-old woman with hx of schizophrenia, she asked staff at to call crisis as she reported hearing more voices and not trusting staff and peers at . Utox is negative. Pt reports taking medications as prescribed- combination of clozaril and perphenazine. Pt has guardian- sister, No [phone]. PLAN 1. Admit to M3, cv 15 minutes checks for safety 2. continue current medications 3. obtain collateral information 04/24 continue current medications. pending collateral. 04/25 continue current medications- may lower sertraline as it may worsen psychosis. 04/26 pending clozaril levels, may consider switching perphenazine to prolixin. continue current medications. 04/27 increase clozaril to 75mg po daily and 300mg po qhs. 04/29/2022: No changes to current regimen. Will add nystatin cream 04/30 increase clozaril to 100mg po daily and 300mg po qhs. Clozaril levels received- metabolic ratio of 256:74 = MC> 3.00, which shows some increase in clozaril level due to either inhibitions of 1A2, 2C19, 2D2 or 3A4 or recent infection. Pt usually is heavy smoker, so metabolic ratio expected to be less than 1.32 which is not what we are seeing here. Will monitor excessive side effects such as sedation. Sister No- updated. 05/01 continue tx. staff to come to see her. 05/02 increase clozaril to 125mg po daily and 300mg po qhs. staff from will see her over zoom meeting tomorrow. Sister No updated. Lisinopril increased from 2.5mg po to 5mg po daily given SBP 160's. 05/03 continue tx. 05/04 continue tx. 05/06/22: Continue current plan of care. I spent minutes with the patient and/or on the patient floor today, greater than?50% of which was spent counseling/coordinating care. Patient educated on: therapeutic strategies Informed Consent: further education needed Reason for contiued inpatient stay Substantial Risk for: rapid decompensation Time Spent With Patient Time: Total time managing care of this patient today ___20_ minutes.
[2022-05-06 12:28] LABS: Glucose, Whole Blood 236 mg/dL (60-115)
[2022-05-06 17:08] LABS: Glucose, Whole Blood 214 mg/dL (60-115)
[2022-05-06 18:00] VITALS: BP 131/77; PULSE 92; TEMP 36.6; O2SAT 95
[2022-05-06] MEDS: cloZAPine 100 MG TABLET 300 MG PO (21:37)
[2022-05-06] MEDS: Divalproex Sodium ER 500 MG TAB.ER.24H 1000 MG PO (21:37)
[2022-05-06] MEDS: Insulin Glargine,Hum.rec.anlog 100 UNIT/ML 10 ML VIAL 65 UNIT SUBCUT (21:51)
[2022-05-06 22:03] LABS: Glucose, Whole Blood 354 mg/dL (60-115)
[2022-05-06] MEDS: Insulin Lispro 100 UNIT/ML 3 ML VIAL 8 UNIT SUBCUT (22:34)
[2022-05-07 08:02] LABS: Glucose, Whole Blood 201 mg/dL (60-115)
[2022-05-07] MEDS: Insulin Lispro 100 UNIT/ML 3 ML VIAL SUBCUT ×3 (08:24→17:41)
[2022-05-07] MEDS: Omeprazole 20 MG CAPSULE.DR PO (08:24)
[2022-05-07] MEDS: Sertraline HCL 50 MG TABLET PO (08:24)
[2022-05-07] MEDS: Metoprolol Tartrate 25 MG TABLET PO ×2 (08:24→20:28)
[2022-05-07] MEDS: Ferrous Sulfate 324 MG TABLET.DR PO ×2 (08:25→20:28)
[2022-05-07] MEDS: metFORMIN HCl ER 500 MG TAB.ER.24H 1000 MG PO ×2 (08:25→20:28)
[2022-05-07] MEDS: cloZAPine 25 MG TABLET PO (08:25)
[2022-05-07] MEDS: Perphenazine 4 MG TABLET PO ×2 (08:25→20:28)
[2022-05-07] MEDS: lisinopriL 5 MG TABLET PO (08:25)
[2022-05-07] MEDS: Ascorbic Acid 500 MG TABLET PO ×2 (08:25→20:28)
[2022-05-07] MEDS: cloZAPine 100 MG TABLET PO (08:25)
[2022-05-07] MEDS: Sennosides/Docusate Sodium TABLET 1 TAB PO ×2 (08:25→20:28)
[2022-05-07 08:55] VITALS: BP 127/79; PULSE 106; RESP 16; TEMP 36.7; O2SAT 99
[2022-05-07 09:31] LABS: Valproate 26.9 mcg/mL (50.0-100.0)
[2022-05-07 12:18] LABS: Glucose, Whole Blood 272 mg/dL (60-115)
--- NOTE | 2022-05-07 15:33 | HO.PSYCHPN ---
Subjective Subjective Date of Service: 05/07/22 Reason For Visit: SI Interim History: calm, cooperative, happy to be discharging tomorrow. per staff, sleeping well. good appetite. +AH, derogatory. no groups, no SI/HI, irritable. lots of daytime sleeping. Mental Status Exam Mental Status Exam Narrative: Appearance: wearing hospital gown, MO, in NAD Behavior: superficially cooperative Psychomotor: no agitation or retardation noted TP: linear TC: no delusions or paranoia expressed Mood: happy Affect: congruent SI: denies HI: none AH: reports hearing voices VH: none Insight/judgment: fair x 2. Memory/cog: alert, oriented x 3. not formally tested. Diagnostics Vital Signs (24Hr): Vital Signs - 24 hr 05/06/22 18:00 05/07/22 08:55 Temperature 97.9 F 98.1 F Pulse Rate 92 106 H Respiratory Rate 16 Blood Pressure 131/77 127/79 Pulse Oximetry 95 99 Oxygen Delivery Method Room Air Room Air BMI result Body Mass Index 40.5 Labs Results: 04/27/22 10:29 05/03/22 09:05 Labs: Laboratory Results - last 48 hr 05/05/22 05/05/22 05/06/22 17:30 21:49 08:34 POC Glucose 242 H 302 H 180 H Valproic Acid 05/06/22 05/06/22 05/06/22 12:24 17:04 21:47 POC Glucose 236 H 214 H 354 H* Valproic Acid 05/07/22 05/07/22 05/07/22 07:58 08:04 12:12 POC Glucose 201 H 272 H Valproic Acid 26.9 L Medications Medications Current Medications Acetaminophen (Acetaminophen 325 Mg Tablet) 650 mg PO Q6H PRN PRN Reason: Headache/Pain Mild Scale (1-3) Al Hydroxide/Mg Hydroxide (Magnesium Hydrox/Alum Hydrox 30 Ml Oral.Susp) 30 ml PO Q6H PRN PRN Reason: Heartburn/Nausea Ascorbic Acid (Ascorbic Acid 500 Mg Tablet) 500 mg PO BID [facility] Last Admin: 05/07/22 08:25 Dose: 500 mg Clozapine (Clozapine 100 Mg Tablet) 300 mg PO BEDTIME [facility] Last Admin: 05/06/22 21:37 Dose: 300 mg Clozapine (Clozapine 100 Mg Tablet) 100 mg PO DAILY [facility] Last Admin: 05/07/22 08:25 Dose: 100 mg Clozapine (Clozapine 25 Mg Tablet) 25 mg PO DAILY [facility] Last Admin: 05/07/22 08:25 Dose: 25 mg Divalproex Sodium (Divalproex Sodium Er 500 Mg Tab.Er.24h) 1,000 mg PO BEDTIME [facility] Last Admin: 05/06/22 21:37 Dose: 1,000 mg Ferrous Sulfate (Ferrous Sulfate 324 Mg Tablet.Dr) 324 mg PO BID [facility] Last Admin: 05/07/22 08:25 Dose: 324 mg Hydroxyzine HCl (Hydroxyzine Hcl 25 Mg Tablet) 25 mg PO Q6H PRN PRN Reason: Anxiety Insulin Glargine (Insulin Glargine,Hum.Rec.Anlog 100 Unit/Ml 10 Ml Vial) 65 unit SUBCUT BEDTIME [facility] Last Admin: 05/06/22 21:51 Dose: 65 unit Insulin Human Lispro (Insulin Lispro 100 Unit/Ml 3 Ml Vial) 0 unit SUBCUT TID@0800,1200,1600 [facility]; Protocol Last Admin: 05/07/22 13:23 Dose: 6 unit Lisinopril (Lisinopril 5 Mg Tablet) 5 mg PO DAILY [facility]; Protocol Last Admin: 05/07/22 08:25 Dose: 5 mg Magnesium Hydroxide (Milk Of Magnesia 30 Ml Oral.Susp) 30 ml PO DAILY PRN PRN Reason: Constipation Metformin HCl (Metformin Hcl Er 500 Mg Tab.Er.24h) 1,000 mg PO BID [facility] Last Admin: 05/07/22 08:25 Dose: 1,000 mg Metoprolol Tartrate (Metoprolol Tartrate 25 Mg Tablet) 25 mg PO BID [facility]; Protocol Last Admin: 05/07/22 08:24 Dose: 25 mg Nystatin (Nystatin Cream 15 Gm Tube) 1 appl TOPICAL BID [facility]; Protocol Last Admin: 05/07/22 08:47 Dose: Not Given Omeprazole (Omeprazole 20 Mg Capsule.Dr) 20 mg PO DAILY@0630 [facility] Last Admin: 05/07/22 08:24 Dose: 20 mg Perphenazine (Perphenazine 4 Mg Tablet) 4 mg PO BID [facility] Last Admin: 05/07/22 08:25 Dose: 4 mg Senna/Docusate Sodium (Sennosides/Docusate Sodium Tablet) 1 tab PO BID [facility] Last Admin: 05/07/22 08:25 Dose: 1 tab Sertraline HCl (Sertraline Hcl 50 Mg Tablet) 50 mg PO DAILY [facility] Last Admin: 05/07/22 08:24 Dose: 50 mg Trazodone HCl (Trazodone Hcl 50 Mg Tablet) 50 mg PO BEDTIME PRN PRN Reason: Insomnia Last Admin: 05/05/22 22:13 Dose: 50 mg Allergies Allergies Allergy/AdvReac Type Severity Reaction Status Date / Time Sulfa (Sulfonamide Allergy Intermediate PUFFY EYES Verified 04/22/22 06:14 Antibiotics) [SULFA (SULFONAMIDE ANTIBIOTICS)] Penicillins [PENICILLINS] Allergy Mild PT STATES Verified 04/22/22 06:14 NOTHING HAPPENS, ALLG LISTED ON TRANF SHEET Assessment & Plan Assessment & Plan (1) Schizophrenia: Status: Acute Code(s): F20.9 - Schizophrenia, unspecified Plan Ms. Dhillon is a 46 year-old woman with hx of schizophrenia, she asked staff at to call crisis as she reported hearing more voices and not trusting staff and peers at . Utox is negative. Pt reports taking medications as prescribed- combination of clozaril and perphenazine. Pt has guardian- sister, No [phone]. PLAN 1. Admit to M3, cv 15 minutes checks for safety 2. continue current medications 3. obtain collateral information 04/24 continue current medications. pending collateral. 04/25 continue current medications- may lower sertraline as it may worsen psychosis. 04/26 pending clozaril levels, may consider switching perphenazine to prolixin. continue current medications. 04/27 increase clozaril to 75mg po daily and 300mg po qhs. 04/29/2022: No changes to current regimen. Will add nystatin cream 04/30 increase clozaril to 100mg po daily and 300mg po qhs. Clozaril levels received- metabolic ratio of 256:74 = MC> 3.00, which shows some increase in clozaril level due to either inhibitions of 1A2, 2C19, 2D2 or 3A4 or recent infection. Pt usually is heavy smoker, so metabolic ratio expected to be less than 1.32 which is not what we are seeing here. Will monitor excessive side effects such as sedation. Sister No- updated. 05/01 continue tx. staff to come to see her. 05/02 increase clozaril to 125mg po daily and 300mg po qhs. staff from will see her over zoom meeting tomorrow. Sister No updated. Lisinopril increased from 2.5mg po to 5mg po daily given SBP 160's. 05/03 continue tx. 05/04 continue tx. 05/06/22: Continue current plan of care. 05/07: VPA 26.2, so plenty of room for titration if indicated. plan to discharge to tomorrow. denying SI. I spent __20____ minutes with the patient and/or on the patient floor today, greater than?50% of which was spent counseling/coordinating care. Reason for contiued inpatient stay Substantial Risk for: inability to function and rapid decompensation Time Spent With Patient Time: Total time managing care of this patient today ____ minutes.
[2022-05-07 17:41] LABS: Glucose, Whole Blood 229 mg/dL (60-115)
[2022-05-07 20:00] VITALS: BP 119/70; PULSE 119; RESP 18; TEMP 36.4; O2SAT 99
[2022-05-07] MEDS: cloZAPine 100 MG TABLET 300 MG PO (20:28)
[2022-05-07] MEDS: Divalproex Sodium ER 500 MG TAB.ER.24H 1000 MG PO (20:28)
[2022-05-07] MEDS: Insulin Glargine,Hum.rec.anlog 100 UNIT/ML 10 ML VIAL 65 UNIT SUBCUT (20:29)
[2022-05-07 20:39] LABS: Glucose, Whole Blood 276 mg/dL (60-115)
[2022-05-08 08:15] VITALS: BP 116/71; PULSE 116; RESP 16; TEMP 36.6; O2SAT 100
[2022-05-08] MEDS: lisinopriL 5 MG TABLET PO (08:51)
[2022-05-08] MEDS: Metoprolol Tartrate 25 MG TABLET PO (08:51)
[2022-05-08] MEDS: Sertraline HCL 50 MG TABLET PO (08:51)
[2022-05-08] MEDS: Omeprazole 20 MG CAPSULE.DR PO (08:51)
[2022-05-08] MEDS: Perphenazine 4 MG TABLET PO (08:51)
[2022-05-08] MEDS: Sennosides/Docusate Sodium TABLET 1 TAB PO (08:51)
[2022-05-08] MEDS: metFORMIN HCl ER 500 MG TAB.ER.24H 1000 MG PO (08:51)
[2022-05-08] MEDS: Ferrous Sulfate 324 MG TABLET.DR PO (08:51)
[2022-05-08] MEDS: Ascorbic Acid 500 MG TABLET PO (08:51)
[2022-05-08] MEDS: cloZAPine 100 MG TABLET PO (08:52)
[2022-05-08] MEDS: cloZAPine 25 MG TABLET PO (08:52)
[2022-05-08] MEDS: Insulin Lispro 100 UNIT/ML 3 ML VIAL SUBCUT (08:52)
--- NOTE | 2022-05-08 09:36 | PC.NURSE ---
Yuni is alert, fully oriented, pleasant and cooperative with discharge process. She denies ideation, plan or intent to harm self or others. She denies current physical complaint. Yuni states that the staff at her alf take care of her meds and appointments, she denies questions about these. The discharge plan is for her to return to her alf.
--- NOTE | 2022-05-08 10:54 | P.DS_ITS ---
DS: Providers Provider Date of admission: 04/23/22 13:17 Primary care physician: Unknown Physician DS: Diagnosis Discharge Diagnosis (1) Schizophrenia: Status: Acute DS: Medications Discharge Medications Home Medications: Home Medications Medication Instructions Recorded Confirmed ascorbic acid (vitamin C) 500 mg 1 tab PO BID 03/07/22 04/21/22 tablet (Vitamin C) clonazepam 0.5 mg tablet 1 tab PO QAM 03/07/22 04/21/22 clozapine 100 mg tablet 3 tab PO BEDTIME 03/07/22 04/21/22 divalproex 500 mg tablet,extended 2 tab PO BEDTIME 03/07/22 04/21/22 release 24 hr dulaglutide 1.5 mg/0.5 mL 0.5 ml subcut WE@0900 03/07/22 04/21/22 subcutaneous pen injector (Trulicity) ferrous sulfate 325 mg (65 mg 325 mg PO BID 03/07/22 04/21/22 iron) tablet insulin glargine 100 unit/mL (3 65 unit subcut BEDTIME 03/07/22 04/21/22 mL) subcutaneous pen (Lantus Solostar U-100 Insulin) insulin lispro 100 unit/mL See Protocol subcut 03/07/22 04/21/22 subcutaneous pen TID@0800,1200,1600 metformin 500 mg tablet,extended 2 tab PO BID 03/07/22 04/21/22 release 24 hr metoprolol tartrate 25 mg tablet 1 tab PO BID 03/07/22 04/21/22 omeprazole 20 mg capsule,delayed 1 cap PO DAILY@0630 03/07/22 04/21/22 release perphenazine 4 mg tablet 1 tab PO BID 03/07/22 04/21/22 docusate sodium 100 mg capsule 100 mg PO BID 04/21/22 04/21/22 (Colace) Previous Rx's Medication Instructions Recorded clozapine 100 mg tablet 100 mg PO DAILY 30 days #30 tabs 05/08/22 clozapine 25 mg tablet 25 mg PO DAILY 30 days #30 tabs 05/08/22 lisinopril 5 mg tablet 5 mg PO DAILY 30 days #30 tabs 05/08/22 sennosides 8.6 mg-docusate sodium 1 tab PO BID 30 days #60 tabs 05/08/22 50 mg tablet (Senna Plus) sertraline 50 mg tablet 50 mg PO DAILY 30 days #30 tabs 05/08/22 Data Data Completed and Pending Completed studies during hospitalization [Text1]: 05/01/22 05/01/22 05/01/22 12:57 17:58 21:32 Absolute Neuts (auto) Creatinine Estim Creat Clear Calc Estimated GFR POC Glucose 221 H 305 H 240 H Valproic Acid 05/02/22 05/02/22 05/02/22 09:18 12:55 16:42 Absolute Neuts (auto) Creatinine Estim Creat Clear Calc Estimated GFR POC Glucose 205 H 245 H 274 H Valproic Acid 05/02/22 05/03/22 05/03/22 21:58 09:05 09:18 Absolute Neuts (auto) Creatinine 0.71 Estim Creat Clear Calc 130.4 Estimated GFR > 60 POC Glucose 302 H 205 H Valproic Acid 05/03/22 05/03/22 05/03/22 13:44 17:54 22:15 Absolute Neuts (auto) Creatinine Estim Creat Clear Calc Estimated GFR POC Glucose 265 H 262 H 308 H Valproic Acid 05/04/22 05/04/22 05/04/22 08:10 08:33 12:23 Absolute Neuts (auto) 5.8 Creatinine Estim Creat Clear Calc Estimated GFR POC Glucose 210 H 210 H Valproic Acid 05/04/22 05/04/22 05/05/22 17:43 22:23 08:25 Absolute Neuts (auto) Creatinine Estim Creat Clear Calc Estimated GFR POC Glucose 262 H 290 H 247 H Valproic Acid 05/05/22 05/05/22 05/05/22 12:34 17:30 21:49 Absolute Neuts (auto) Creatinine Estim Creat Clear Calc Estimated GFR POC Glucose 324 H 242 H 302 H Valproic Acid 05/06/22 05/06/22 05/06/22 08:34 12:24 17:04 Absolute Neuts (auto) Creatinine Estim Creat Clear Calc Estimated GFR POC Glucose 180 H 236 H 214 H Valproic Acid 05/06/22 05/07/22 05/07/22 21:47 07:58 08:04 Absolute Neuts (auto) Creatinine Estim Creat Clear Calc Estimated GFR POC Glucose 354 H* 201 H Valproic Acid 26.9 L 05/07/22 05/07/22 05/07/22 12:12 17:36 20:27 Absolute Neuts (auto) Creatinine Estim Creat Clear Calc Estimated GFR POC Glucose 272 H 229 H 276 H Valproic Acid DS: Summary Time Spent with Patient Time attestation: Total time managing care of this patient today ____ minutes. Discharge Plan Discharge Anticipated Discharge Date/Time: 05/08/22 10:52 Patient Disposition: Home, Self-Care Discharge Diagnosis: Schizophrenia, Paranoid Type Referrals: [facility] Medication Provider [Other] - 1 Week (Please follow up with your provider for your next appointment. ) Jd Cordova MD [Physician] - 1 Week (will be contacting patient.) [facility] [Physician] - 1 Week Discharge Medications: New clozapine 100 mg Tablet 100 mg PO DAILY 30 Days Qty: 30 0RF sennosides-docusate sodium [Senna Plus] 8.6-50 mg Tablet 1 tab PO BID 30 Days Qty: 60 0RF lisinopril 5 mg Tablet 5 mg PO DAILY 30 Days Qty: 30 0RF Protocol: Hold for SBP< HOLD for SBP < : 90 clozapine 25 mg Tablet 25 mg PO DAILY 30 Days Qty: 30 0RF sertraline 50 mg Tablet 50 mg PO DAILY 30 Days Qty: 30 0RF Continued docusate sodium [Colace] 100 mg Capsule 100 mg PO BID clozapine 100 mg tablet 3 tab PO BEDTIME clonazepam 0.5 mg tablet 1 tab PO QAM ascorbic acid (vitamin C) [Vitamin C] 500 mg tablet 1 tab PO BID ferrous sulfate 325 mg (65 mg iron) Tablet 325 mg PO BID divalproex 500 mg tablet extended release 24 hr 2 tab PO BEDTIME perphenazine 4 mg tablet 1 tab PO BID omeprazole 20 mg capsule,delayed release(DR/EC) 1 cap PO DAILY@0630 metformin 500 mg tablet extended release 24 hr 2 tab PO BID insulin lispro 100 unit/mL insulin pen See Protocol subcut TID@0800,1200,1600 Protocol: Insulin Correction Scale Less than or equal to 110 ---- Give (units): 0 111 to 150 Give (units): 0 151 to 200 Give (units): 2 201 to 250 Give (units): 4 251 to 300 Give (units): 6 301 to 350 Give (units): 8 Greater than 350 Give (units): 10 Call MD if Blood Glucose > : 350 metoprolol tartrate 25 mg tablet 1 tab PO BID insulin glargine [Lantus Solostar U-100 Insulin] 100 unit/mL (3 mL) Insulin Pen 65 unit subcut BEDTIME Trulicity 1.5 mg/0.5 mL pen injector 0.5 ml subcut WE@0900 Discontinued sertraline 100 mg tablet 1 tab PO QAM benztropine 1 mg tablet 1 tab PO BID clozapine 25 mg tablet 2 tab PO DAILY lisinopril 2.5 mg tablet 1 tab PO DAILY Discharge Orders: Discharge Order (Routine); Ordered 05/08/22 Ordered By: Israel Dickerson Diet: Diabetic diet Activity on Discharge: As tolerated Stand Alone Forms: Patient Portal Discharge page Care Plan Goals: remain safe and stable in the outpatient treatment setting Health Concerns: Diabetes Mellitus Hypertension Plan of Treatment: take medications as prescribed, attend appointments as scheduled Assessment: not at imminent risk of harm to self or others
--- NOTE | 2022-05-08 11:01 | P.DS_ITS ---
DS: Providers Provider Date of Service: 05/08/22 Date of admission: 04/23/22 13:17 Primary care physician: Unknown Physician DS: Diagnosis Discharge Diagnosis (1) Schizophrenia: Status: Acute DS: Medications Discharge Medications Home Medications: Home Medications Medication Instructions Recorded Confirmed ascorbic acid (vitamin C) 500 mg 1 tab PO BID 03/07/22 04/21/22 tablet (Vitamin C) clozapine 100 mg tablet 3 tab PO BEDTIME 03/07/22 04/21/22 divalproex 500 mg tablet,extended 2 tab PO BEDTIME 03/07/22 04/21/22 release 24 hr dulaglutide 1.5 mg/0.5 mL 0.5 ml subcut WE@0900 03/07/22 04/21/22 subcutaneous pen injector (Trulicity) ferrous sulfate 325 mg (65 mg 325 mg PO BID 03/07/22 04/21/22 iron) tablet insulin glargine 100 unit/mL (3 65 unit subcut BEDTIME 03/07/22 04/21/22 mL) subcutaneous pen (Lantus Solostar U-100 Insulin) insulin lispro 100 unit/mL See Protocol subcut 03/07/22 04/21/22 subcutaneous pen TID@0800,1200,1600 metformin 500 mg tablet,extended 2 tab PO BID 03/07/22 04/21/22 release 24 hr metoprolol tartrate 25 mg tablet 1 tab PO BID 03/07/22 04/21/22 omeprazole 20 mg capsule,delayed 1 cap PO DAILY@0630 03/07/22 04/21/22 release perphenazine 4 mg tablet 1 tab PO BID 03/07/22 04/21/22 docusate sodium 100 mg capsule 100 mg PO BID 04/21/22 04/21/22 (Colace) Previous Rx's Medication Instructions Recorded clozapine 100 mg tablet 100 mg PO DAILY 30 days #30 tabs 05/08/22 clozapine 25 mg tablet 25 mg PO DAILY 30 days #30 tabs 05/08/22 lisinopril 5 mg tablet 5 mg PO DAILY 30 days #30 tabs 05/08/22 sennosides 8.6 mg-docusate sodium 1 tab PO BID 30 days #60 tabs 05/08/22 50 mg tablet (Senna Plus) sertraline 50 mg tablet 50 mg PO DAILY 30 days #30 tabs 05/08/22 Mental Status Exam Mental Status Exam Narrative: Appearance: wearing hospital gown, in NAD Behavior: superficially cooperative Psychomotor: no agitation or retardation noted TP: linear TC: no delusions or paranoia expressed Mood: fine Affect: congruent SI: denies HI: denies AH: reports hearing voices VH: none Insight/judgment: fair x 2. Memory/cog: alert, oriented x 3. not formally tested. Data Data Completed and Pending Completed studies during hospitalization [Text1]: 05/01/22 05/01/22 05/01/22 12:57 17:58 21:32 Absolute Neuts (auto) Creatinine Estim Creat Clear Calc Estimated GFR POC Glucose 221 H 305 H 240 H Valproic Acid 05/02/22 05/02/22 05/02/22 09:18 12:55 16:42 Absolute Neuts (auto) Creatinine Estim Creat Clear Calc Estimated GFR POC Glucose 205 H 245 H 274 H Valproic Acid 05/02/22 05/03/22 05/03/22 21:58 09:05 09:18 Absolute Neuts (auto) Creatinine 0.71 Estim Creat Clear Calc 130.4 Estimated GFR > 60 POC Glucose 302 H 205 H Valproic Acid 05/03/22 05/03/22 05/03/22 13:44 17:54 22:15 Absolute Neuts (auto) Creatinine Estim Creat Clear Calc Estimated GFR POC Glucose 265 H 262 H 308 H Valproic Acid 05/04/22 05/04/22 05/04/22 08:10 08:33 12:23 Absolute Neuts (auto) 5.8 Creatinine Estim Creat Clear Calc Estimated GFR POC Glucose 210 H 210 H Valproic Acid 05/04/22 05/04/22 05/05/22 17:43 22:23 08:25 Absolute Neuts (auto) Creatinine Estim Creat Clear Calc Estimated GFR POC Glucose 262 H 290 H 247 H Valproic Acid 05/05/22 05/05/22 05/05/22 12:34 17:30 21:49 Absolute Neuts (auto) Creatinine Estim Creat Clear Calc Estimated GFR POC Glucose 324 H 242 H 302 H Valproic Acid 05/06/22 05/06/22 05/06/22 08:34 12:24 17:04 Absolute Neuts (auto) Creatinine Estim Creat Clear Calc Estimated GFR POC Glucose 180 H 236 H 214 H Valproic Acid 05/06/22 05/07/22 05/07/22 21:47 07:58 08:04 Absolute Neuts (auto) Creatinine Estim Creat Clear Calc Estimated GFR POC Glucose 354 H* 201 H Valproic Acid 26.9 L 05/07/22 05/07/22 05/07/22 12:12 17:36 20:27 Absolute Neuts (auto) Creatinine Estim Creat Clear Calc Estimated GFR POC Glucose 272 H 229 H 276 H Valproic Acid DS: Summary Hospital Course Hospital Course: per 04/23 admission note: Ms. Dhillon is a 46 year-old woman with hx of schizophrenia. She was brought via EMS to [facility] ED after she asked one of the staff at where she resides that she was hearing more voices and not feeling safe at . On the unit, pt reports hearing voices all the time, apparently worse in past several weeks. Pt reports she does not feel safe at and thinks peers and staff are after her. She reports taking medications consistently. She denies SI/HI. She recently about 8 months ago moved to this new . Past Psychiatric History: Inpatient: last one about one year ago OP: [facility] Past trials: clozaril, perphenazine, depakote Medical Evaluation Reviewed: Yes [facility] Medical History? Diabetes Gram-positive bacteremia HTN (hypertension) Social History: lives in . No children, not . Sister is guardian Substance History: None Trauma History: none Precis: 04/23 continue current medications 04/24 continue current medications. pending collateral. 04/25 continue current medications- may lower sertraline as it may worsen psychosis. 04/26 pending clozaril levels, may consider switching perphenazine to prolixin. continue current medications. 04/27 increase clozaril to 75mg po daily and 300mg po qhs. 04/29/2022:? No changes to current regimen.? Will add nystatin cream 04/30 increase clozaril to 100mg po daily and 300mg po qhs. Clozaril levels received- metabolic ratio of 256:74 = MC>? 3.00, which shows some increase in clozaril level due to either inhibitions of 1A2, 2C19, 2D2 or 3A4 or recent infection. Pt usually is heavy smoker, so metabolic ratio expected to be less than 1.32 which is not what we are seeing here. Will monitor excessive side effects such as sedation. Sister No- updated. 05/01 continue tx. staff to come to see her. 05/02 increase clozaril to 125mg po daily and 300mg po qhs. staff from will see her over zoom meeting tomorrow. Sister No updated. Lisinopril increased from 2.5mg po to 5mg po daily given SBP 160's. 05/03 continue tx. 05/04 continue tx. 05/06/22: Continue current plan of care. 05/07: VPA 26.2, so plenty of room for titration if indicated.? plan to discharge to tomorrow.? denying SI. 05/08: discharged to senior care as per plan. stable, no safety concerns. medications reviewed, reconciled, and prescribed. Time Spent with Patient Time attestation: Total time managing care of this patient today ____ minutes. Time spent: Greater than 30 minutes Discharge Plan Discharge Anticipated Discharge Date/Time: 05/08/22 10:52 Patient Disposition: Home, Self-Care Discharge Diagnosis: Schizophrenia, Paranoid Type Referrals: [facility] Medication Provider [Other] - 1 Week (Please follow up with your provider for your next appointment. ) Jd Cordova MD [Physician] - 1 Week (will be contacting patient.) [facility] [Physician] - 1 Week Discharge Medications: New clozapine 100 mg Tablet 100 mg PO DAILY 30 Days Qty: 30 0RF sennosides-docusate sodium [Senna Plus] 8.6-50 mg Tablet 1 tab PO BID 30 Days Qty: 60 0RF lisinopril 5 mg Tablet 5 mg PO DAILY 30 Days Qty: 30 0RF Protocol: Hold for SBP< HOLD for SBP < : 90 clozapine 25 mg Tablet 25 mg PO DAILY 30 Days Qty: 30 0RF sertraline 50 mg Tablet 50 mg PO DAILY 30 Days Qty: 30 0RF Continued docusate sodium [Colace] 100 mg Capsule 100 mg PO BID clozapine 100 mg tablet 3 tab PO BEDTIME ascorbic acid (vitamin C) [Vitamin C] 500 mg tablet 1 tab PO BID ferrous sulfate 325 mg (65 mg iron) Tablet 325 mg PO BID divalproex 500 mg tablet extended release 24 hr 2 tab PO BEDTIME perphenazine 4 mg tablet 1 tab PO BID omeprazole 20 mg capsule,delayed release(DR/EC) 1 cap PO DAILY@0630 metformin 500 mg tablet extended release 24 hr 2 tab PO BID insulin lispro 100 unit/mL insulin pen See Protocol subcut TID@0800,1200,1600 Protocol: Insulin Correction Scale Less than or equal to 110 ---- Give (units): 0 111 to 150 Give (units): 0 151 to 200 Give (units): 2 201 to 250 Give (units): 4 251 to 300 Give (units): 6 301 to 350 Give (units): 8 Greater than 350 Give (units): 10 Call MD if Blood Glucose > : 350 metoprolol tartrate 25 mg tablet 1 tab PO BID insulin glargine [Lantus Solostar U-100 Insulin] 100 unit/mL (3 mL) Insulin Pen 65 unit subcut BEDTIME Trulicity 1.5 mg/0.5 mL pen injector 0.5 ml subcut WE@0900 Discontinued clonazepam 0.5 mg tablet 1 tab PO QAM sertraline 100 mg tablet 1 tab PO QAM benztropine 1 mg tablet 1 tab PO BID clozapine 25 mg tablet 2 tab PO DAILY lisinopril 2.5 mg tablet 1 tab PO DAILY Discharge Orders: Discharge Order (Routine); Ordered 05/08/22 Ordered By: Israel Dickerson Diet: Diabetic diet Activity on Discharge: As tolerated Stand Alone Forms: Patient Portal Discharge page, Community Support Care Plan Goals: remain safe and stable in the outpatient treatment setting Health Concerns: Diabetes Mellitus Hypertension Plan of Treatment: take medications as prescribed, attend appointments as scheduled Assessment: not at imminent risk of harm to self or others Discharge Date/Time: 05/08/22 11:21
[2022-05-09 03:33] LABS: Glucose, Whole Blood 203 mg/dL (60-115)
== END 2022-05-08 11:21 | disposition home or self-care (01) | DRG 750 ==
LOC: HO.ED 04-22 01:14 → HO.PADLT16 04-23 13:21
PROVIDERS: Clinical Nurse Specialist Psychiatric/Mental Health, Adult; Admitting Provider Psychiatry & Neurology Psychiatry; Emergency Provider Emergency Medicine Emergency Medical Services; Visit Provider Social Worker
DX: F20.9 Schizophrenia, unspecified (principal); E11.9 Type 2 diabetes mellitus without complications; F17.210 Nicotine dependence, cigarettes, uncomplicated; I10 Essential (primary) hypertension; Z20.822 Contact with and (suspected) exposure to COVID-19; Z71.6 Tobacco abuse counseling; Z88.0 Allergy status to penicillin; Z88.2 Allergy status to sulfonamides; Z79.4 Long term (current) use of insulin; Z79.84 Long term (current) use of oral hypoglycemic drugs; Z79.899 Other long term (current) drug therapy
CPT/HCPCS: 0241U; 36415; 80053; 80061; 80159; 80164; 80307; 81003; 81025; 82140; 82565; 82607; 82746; 82947; 84439; 84443; 85025; 85048; 93005; 99285

== ENCOUNTER 2022-05-25 14:02 | Outpatient (REF) | payer MEDICAID, SELFPAY ==
[2022-05-25 14:29] LABS: MANUAL DIFF FLAG NO
[2022-05-25 15:34] LABS: Basophils Percent Auto 0.3 % (0-2); Eosinophils Absolute Auto 0.2 X10*3/uL (0.0-0.4); Eosinophils Percent Auto 1.1 % (0-4); Hematocrit 40.5 % (37.0-47.0); Hemoglobin 12.6 g/dl (12.0-16.0); Imm Gran Abs Auto 0.05 X10*3/uL (0.00-0.03); Imm Gran Pct Auto 0.4 % (0.0-0.4); Lymphocytes Absolute Auto 3.8 X10*3/uL (1.2-4.9); Lymphocytes Percent Auto 28.2 % (20-40); Mean Corpuscular HGB Conc 31.1 g/dl (31.0-35.0); Mean Corpuscular Hemoglobin 26.7 pg (27.0-33.0); Mean Corpuscular Volume 85.8 fL (80.0-98.0); Mean Platelet Volume 9.9 fL (9.4-12.3); Monocytes Absolute Auto 0.7 X10*3/uL (0.1-1.2); Monocytes Percent Auto 5.3 % (2-11); Neutrophils Absolute Auto 8.6 x10*3/uL (2.0-8.3); Neutrophils Percent Auto 64.7 % (45-73); Platelet Count 319 X10*3/uL (160-400); Red Blood Count 4.72 X10*6/uL (4.20-5.50); Red Cell Distribution Width 14.8 % (11.0-16.0); White Blood Count 13.3 X10*3/uL (4.8-10.8)
== END 2022-05-25 14:03 | disposition home or self-care (01) ==
LOC: HO.LABR 14:02
PROVIDERS: Visit Provider Clinical Nurse Specialist Psychiatric/Mental Health, Adult
DX: Z79.899 Other long term (current) drug therapy (principal)
CPT/HCPCS: 36415; 85025

== ENCOUNTER 2022-06-22 08:20 | Emergency (ER) | payer MEDICAID, SELFPAY ==
[2022-06-22 08:26] VITALS: BP 145/71; PULSE 100; RESP 18; TEMP 37.3; O2SAT 99; BMI 41.1
[2022-06-22 08:29] VITALS: BP 127/59; PULSE 91; O2SAT 97
--- NOTE | 2022-06-22 08:39 | ED_ITS ---
HPI - Nausea/Vomiting/Diarrhea General Chief complaint: Nausea/Vomiting/Diarrhea Stated complaint: Nausea vomiting Time Seen by Provider: 06/22/22 08:37 Source: patient Mode of arrival: EMS Limitations: no limitations History of Present Illness HPI Narrative: 2.5 days ago patient with cough, nausea, vomiting and diarrhea. Patient was vomiting all night so she called the ambulance. Vaccinated against covid. MD elicited complaint: nausea, vomiting and diarrhea Onset (ago): day(s) Associated nausea: Yes Associated abdominal pain: No Severity: mild Exacerbating factors: eating Related Data Home Medications Medication Instructions Recorded Confirmed ascorbic acid (vitamin C) 500 mg 1 tab PO BID 03/07/22 04/21/22 tablet (Vitamin C) clozapine 100 mg tablet 3 tab PO BEDTIME 03/07/22 04/21/22 divalproex 500 mg tablet,extended 2 tab PO BEDTIME 03/07/22 04/21/22 release 24 hr dulaglutide 1.5 mg/0.5 mL 0.5 ml subcut WE@0900 03/07/22 04/21/22 subcutaneous pen injector (Trulicity) ferrous sulfate 325 mg (65 mg 325 mg PO BID 03/07/22 04/21/22 iron) tablet insulin glargine 100 unit/mL (3 65 unit subcut BEDTIME 03/07/22 04/21/22 mL) subcutaneous pen (Lantus Solostar U-100 Insulin) insulin lispro 100 unit/mL See Protocol subcut 03/07/22 04/21/22 subcutaneous pen TID@0800,1200,1600 metformin 500 mg tablet,extended 2 tab PO BID 03/07/22 04/21/22 release 24 hr metoprolol tartrate 25 mg tablet 1 tab PO BID 03/07/22 04/21/22 omeprazole 20 mg capsule,delayed 1 cap PO DAILY@0630 03/07/22 04/21/22 release perphenazine 4 mg tablet 1 tab PO BID 03/07/22 04/21/22 docusate sodium 100 mg capsule 100 mg PO BID 04/21/22 04/21/22 (Colace) Previous Rx's Medication Instructions Recorded clozapine 100 mg tablet 100 mg PO DAILY 30 days #30 tabs 05/08/22 clozapine 25 mg tablet 25 mg PO DAILY 30 days #30 tabs 05/08/22 lisinopril 5 mg tablet 5 mg PO DAILY 30 days #30 tabs 05/08/22 sennosides 8.6 mg-docusate sodium 1 tab PO BID 30 days #60 tabs 05/08/22 50 mg tablet (Senna Plus) sertraline 50 mg tablet 50 mg PO DAILY 30 days #30 tabs 05/08/22 ondansetron 4 mg disintegrating 4 mg PO Q8H PRN nausea and 06/22/22 tablet vomiting 5 days #15 tabs [id number] 5 10 ml PO Q4H PRN cough #237 mL 06/22/22 mg-10 mg-100 mg/5 mL oral liquid (Adult Robitussin Peak Cold M-S) Allergies Allergy/AdvReac Type Severity Reaction Status Date / Time Sulfa (Sulfonamide Allergy Intermediate PUFFY EYES Verified 04/22/22 06:14 Antibiotics) [SULFA (SULFONAMIDE ANTIBIOTICS)] Penicillins [PENICILLINS] Allergy Mild PT STATES Verified 04/22/22 06:14 NOTHING HAPPENS, ALLG LISTED ON TRANF SHEET Review of Systems Review of Systems: Yes all other systems are reviewed and are negative Constitutional: Constitutional: Reports fatigue Gastrointestinal: Gastrointestinal: Reports nausea and Reports vomiting Neurologic: Denies Sensory deficit (Neuro) Endocrine: Endocrine: Reports fatigue PMFSH Past Medical History Medical History Diabetes Gram-positive bacteremia HTN (hypertension) Social History Social History Household Members: Other Household Members Other:: assisted Housing: Other Housing Other:: assisted Do you presently have visiting nurse or other home services: No Alcohol intake: never Patient Tobacco Use Status: Current everyday Tobacco user Tobacco use type: Cigarette Cigarette Packs Per Day: 10 Cigarettes Per Day: 200.0 Years Smoked: 18 Second Hand Smoke Exposure: No Advance Directives: No Advance Directives Information Provided: No Patient : No service: No Current occupational status: disabled Sexual orientation: Don't Know Physical Exam Vital Signs: Vital Signs: Last Vital Signs Temp 98.6 F 06/22/22 10:31 Pulse 90 06/22/22 10:31 Resp 18 06/22/22 10:31 BP 129/70 06/22/22 10:31 Pulse Ox 97 06/22/22 10:31 O2 Del Method 06/22/22 10:31 BMI result Body Mass Index 41.1 Const: Nutritional Appearance: obese Orientation/consciousness: oriented to person and patient oriented x3 Limitations: no limitations HEENT: Head: Yes normal to inspection Ears: external ears normal General nose exam: Normal external nose present Mouth: Normal oral and palatal mucosa present and oropharynx normal Throat: Yes posterior oropharynx normal Eyes: General: appearance normal, both eyes and all related structures Neck: Other: supple Neck: Yes normal visual inspection Chest: Chest palpation & inspection: normal inspection of the chest Resp: Auscultation: clear to auscultation bilaterally Cardio: Jugular venous distension: no JVD Rate: regular rate Rhythm: regular rhythm Heart sounds: S1 normal heart sound present and S2 normal heart sound present GI: Inspection: Yes normal to inspection Palpation (GI): Soft to palpation, nontender and No hepatosplenomegaly present Auscultation: normal bowel sounds : General: Yes no CVA tenderness Back/Spine/Pelvis: Back: no CVA tenderness Skin: General skin exam: no rashes or lesions noted Neuro: General: oriented to person and patient oriented x3 Cranial nerves: Yes CN's II-XII intact bilaterally Motor exam (neuro): 5/5 motor strength present throughout Sensory Exam: No Sensory deficit (Neuro) Extrem: General: Yes normal to inspection Psych: Appearance: grossly normal Course Reevaluation(s) Reevaluation #1: patient breathing well, is now hungry will dc home with viral illness Time: 10:37 Medications Administered Generic Name Dose Route Start Last Admin Trade Name Freq PRN Reason Stop Dose Admin Sodium Chloride 1,000 mls @ 999 mls/hr 06/22/22 08:45 06/22/22 09:51 Ns IVCONT 06/22/22 10:45 999 mls/hr .Q1H1M CARLEEN Administration Discontinued Medications Generic Name Dose Route Start Last Admin Trade Name Freq PRN Reason Stop Dose Admin Ondansetron HCl 4 mg 06/22/22 08:41 06/22/22 08:55 Ondansetron Hcl 4 Mg/2 Ml Vial IVPUSH 06/22/22 08:42 4 mg ONCE ONE Administration Medical Decision Making Differential Diagnosis Differential Diagnoses: The differential diagnosis associated with the presentation includes (covid, RSV, flu, viral gastroenteritis) Lab Data [facility] Lab Attestation statement: I reviewed the patient's lab results. 06/22/22 08:48 06/22/22 08:48 Labs: Lab Results 06/22/22 06/22/22 06/22/22 Range/Units 08:48 08:48 08:48 WBC 8.6 (4.8-10.8) X10*3/uL RBC 4.44 (4.20-5.50) X10*6/uL Hgb 11.8 L (12.0-16.0) g/dl Hct 37.4 (37.0-47.0) % MCV 84.2 (80.0-98.0) fL MCH 26.6 L (27.0-33.0) pg MCHC 31.6 (31.0-35.0) g/dl RDW 15.0 (11.0-16.0) % Plt Count 316 (160-400) X10*3/uL MPV 9.3 L (9.4-12.3) fL Immature Gran % (Auto) 0.2 (0.0-0.4) % Neut % (Auto) 62.3 (45-73) % Lymph % (Auto) 30.3 (20-40) % [place] % (Auto) 5.5 (2-11) % Eos % (Auto) 1.5 (0-4) % Baso % (Auto) 0.2 (0-2) % Lymph # (Auto) 2.6 (1.2-4.9) X10*3/uL [place] # (Auto) 0.5 (0.1-1.2) X10*3/uL Eos # (Auto) 0.1 (0.0-0.4) X10*3/uL Baso # (Auto) 0.0 (0.0-0.2) X10*3/uL Abs Immat Gran (auto) 0.02 (0.00-0.03) X10*3/uL Absolute Neuts (auto) 5.3 (2.0-8.3) x10*3/uL Absolute Nucleated RBC 0.000 (0.0-0.012) X10*3/uL Nucleated RBC % (auto) 0.0 (0.0-0.2) /100WBC Sodium 143 (135-145) mmol/L Potassium 3.8 D (3.3-5.1) mmol/L Chloride 109 H (96-108) mmol/L Carbon Dioxide 26 (22-29) mmol/L Anion Gap 12 (12-20) BUN 7 L (9-16) mg/dL Creatinine 0.63 (0.5-1.4) mg/dL Estim Creat Clear Calc 133.0 Estimated GFR > 60 Random Glucose 92 (60-115) mg/dL Calcium 8.9 (8.4-10.2) mg/dL Total Bilirubin 0.2 (0.0-1.0) mg/dL AST 15 (5-31) U/L ALT 20 (0-31) U/L Alkaline Phosphatase 73 (39-117) U/L Total Protein 5.8 L (6.5-8.0) g/dL Albumin 3.7 (3.5-5.0) g/dL Influenza Type A (PCR) NEGATIVE (Negative) Influenza Type B (PCR) NEGATIVE (Negative) RSV RNA Qual (PCR) NEGATIVE (Negative) SARS-CoV-2 RNA (RT-PCR) NEGATIVE (Negative) Independent Historian Clinical information obtained from an independent historian. History obtained from or confirmed by: EMS Social Determinants Patient?s care significantly limited by Social Determinants of Health including: Other Social Determinant of Health (schizophrenia) Discharge Plan Discharge Clinical Impression: Gastroenteritis, Viral illness Patient Disposition: Home, Self-Care Instructions: Acute Nausea and Vomiting (ED), Viral Syndrome (ED) Prescriptions: New ondansetron 4 mg tablet,disintegrating 4 mg PO Q8H PRN (Reason: nausea and vomiting) 5 Days Qty: 15 0RF Adult Robitussin Peak Cold M-S 5-10-100 mg/5 mL liquid 10 ml PO Q4H PRN (Reason: cough) Qty: 237 0RF No Action docusate sodium [Colace] 100 mg Capsule 100 mg PO BID clozapine 100 mg Tablet 100 mg PO DAILY 30 Days Qty: 30 0RF sennosides-docusate sodium [Senna Plus] 8.6-50 mg Tablet 1 tab PO BID 30 Days Qty: 60 0RF lisinopril 5 mg Tablet 5 mg PO DAILY 30 Days Qty: 30 0RF Protocol: Hold for SBP< HOLD for SBP < : 90 clozapine 25 mg Tablet 25 mg PO DAILY 30 Days Qty: 30 0RF sertraline 50 mg Tablet 50 mg PO DAILY 30 Days Qty: 30 0RF clozapine 100 mg tablet 3 tab PO BEDTIME ascorbic acid (vitamin C) [Vitamin C] 500 mg tablet 1 tab PO BID ferrous sulfate 325 mg (65 mg iron) Tablet 325 mg PO BID divalproex 500 mg tablet extended release 24 hr 2 tab PO BEDTIME perphenazine 4 mg tablet 1 tab PO BID omeprazole 20 mg capsule,delayed release(DR/EC) 1 cap PO DAILY@0630 metformin 500 mg tablet extended release 24 hr 2 tab PO BID insulin lispro 100 unit/mL insulin pen See Protocol subcut TID@0800,1200,1600 Protocol: Insulin Correction Scale Less than or equal to 110 ---- Give (units): 0 111 to 150 Give (units): 0 151 to 200 Give (units): 2 201 to 250 Give (units): 4 251 to 300 Give (units): 6 301 to 350 Give (units): 8 Greater than 350 Give (units): 10 Call MD if Blood Glucose > : 350 metoprolol tartrate 25 mg tablet 1 tab PO BID insulin glargine [Lantus Solostar U-100 Insulin] 100 unit/mL (3 mL) Insulin Pen 65 unit subcut BEDTIME Trulicity 1.5 mg/0.5 mL pen injector 0.5 ml subcut WE@0900 Referrals: Physician,Baron J [Primary Care Provider] - 1 week
[2022-06-22] MEDS: 0.9 % Sodium Chloride 1,000 ML 999 ML IVCONT ×2 (08:55→09:51)
[2022-06-22] MEDS: ondansetron HCL 4 MG/2 ML VIAL IVPUSH (08:55)
[2022-06-22 09:00] LABS: MANUAL DIFF FLAG NO
[2022-06-22 09:02] LABS: Basophils Percent Auto 0.2 % (0-2); Eosinophils Absolute Auto 0.1 X10*3/uL (0.0-0.4); Eosinophils Percent Auto 1.5 % (0-4); Hematocrit 37.4 % (37.0-47.0); Hemoglobin 11.8 g/dl (12.0-16.0); Imm Gran Abs Auto 0.02 X10*3/uL (0.00-0.03); Imm Gran Pct Auto 0.2 % (0.0-0.4); Lymphocytes Absolute Auto 2.6 X10*3/uL (1.2-4.9); Lymphocytes Percent Auto 30.3 % (20-40); Mean Corpuscular HGB Conc 31.6 g/dl (31.0-35.0); Mean Corpuscular Hemoglobin 26.6 pg (27.0-33.0); Mean Corpuscular Volume 84.2 fL (80.0-98.0); Mean Platelet Volume 9.3 fL (9.4-12.3); Monocytes Absolute Auto 0.5 X10*3/uL (0.1-1.2); Monocytes Percent Auto 5.5 % (2-11); Neutrophils Absolute Auto 5.3 x10*3/uL (2.0-8.3); Neutrophils Percent Auto 62.3 % (45-73); Platelet Count 316 X10*3/uL (160-400); Red Blood Count 4.44 X10*6/uL (4.20-5.50); White Blood Count 8.6 X10*3/uL (4.8-10.8)
[2022-06-22 09:17] LABS: Alanine Aminotransferase 20 U/L (0-31); Albumin Level 3.7 g/dL (3.5-5.0); Alkaline Phosphatase 73 U/L (39-117); Anion Gap 12 (12-20); Aspartate Amino Transferase 15 U/L (5-31); Bilirubin Total 0.2 mg/dL (0.0-1.0); Blood Urea Nitrogen 7 mg/dL (9-16); Calcium 8.9 mg/dL (8.4-10.2); Carbon Dioxide 26 mmol/L (22-29); Chloride 109 mmol/L (96-108); Estimated Glomerular Filt Rate > 60; Glucose Random 92 mg/dL (60-115); Potassium 3.8 mmol/L (3.3-5.1); Sodium 143 mmol/L (135-145); Total Protein 5.8 g/dL (6.5-8.0)
[2022-06-22 09:40] LABS: Influenza A PCR NEGATIVE (Negative); Influenza B PCR NEGATIVE (Negative); Resp Syncy Virus RNA Qual PCR NEGATIVE (Negative); SARS COV2 PCR INHOUSE NEGATIVE (Negative)
[2022-06-22 10:31] VITALS: BP 129/70; PULSE 90; RESP 18; TEMP 37; O2SAT 97
[2022-06-22 10:46] VITALS: BP 138/60; PULSE 82; RESP 18; TEMP 37; O2SAT 98
== END 2022-06-22 11:08 | disposition home or self-care (01) ==
PROVIDERS: Emergency Provider Emergency Medicine
DX: A08.4 Viral intestinal infection, unspecified (principal); B34.9 Viral infection, unspecified; R11.2 Nausea with vomiting, unspecified; R19.7 Diarrhea, unspecified; F17.210 Nicotine dependence, cigarettes, uncomplicated; Z20.822 Contact with and (suspected) exposure to COVID-19; Z20.828 Contact with and (suspected) exposure to other viral communicable diseases; Z71.6 Tobacco abuse counseling; Z79.899 Other long term (current) drug therapy
CPT/HCPCS: 0241U; 80053; 85025; 96361; 96374; 99284; J2405

== ENCOUNTER 2022-07-12 09:49 | Outpatient (REF) | payer MEDICAID, SELFPAY ==
--- NOTE | ~2022-07-12 | MM_ITS ---
EXAMINATION: MM SCREENING DIGITAL BREAST TOMOSYNTHESIS, BILATERAL CLINICAL INFORMATION: Screening. Asymptomatic. The lifetime risk of breast cancer based on the Tyrer-Cuzick Model is 12%. COMPARISON: Mammography: 07/10/2021 (baseline). TECHNIQUE: Digital breast tomosynthesis is performed in both the craniocaudal and mediolateral oblique views along with computer-aided detection (CAD). Synthesized 2D images are generated from the tomosynthesis. FINDINGS: There are scattered areas of fibroglandular density (ACR BI-RADS breast composition Category b). There are no significant masses, abnormal calcifications, or other abnormalities. Parenchymal pattern is similar to prior studies. There is no developing density or architectural abnormality. The axilla and skin contours are unremarkable. No significant changes. MM/MM tomosynthesis screening BI IMPRESSION: No mammographic evidence of malignancy. ASSESSMENT: BI-RADS 1: Negative RECOMMENDATION: Routine annual mammography screening. This patient's information was entered into a reminder system with a target due date for their next mammogram.
== END 2022-07-12 09:50 | disposition home or self-care (01) ==
LOC: HO.MAMMO 09:49
PROVIDERS: PCP Internal Medicine; Visit Provider Advanced Practice Midwife
DX: Z12.31 Encounter for screening mammogram for malignant neoplasm of breast (principal)
CPT/HCPCS: 77063; 77067

== ENCOUNTER 2023-01-04 17:00 | Outpatient (REF) | payer MEDICAID, SELFPAY ==
[2023-01-04 17:15] LABS: MANUAL DIFF FLAG NO
[2023-01-04 18:11] LABS: Basophils Absolute Auto 0.1 X10*3/uL (0.0-0.2); Basophils Percent Auto 0.4 % (0-2); Eosinophils Absolute Auto 0.2 X10*3/uL (0.0-0.4); Eosinophils Percent Auto 1.3 % (0-4); Hemoglobin 12.7 g/dl (12.0-16.0); Imm Gran Abs Auto 0.07 X10*3/uL (0.00-0.03); Imm Gran Pct Auto 0.4 % (0.0-0.4); Lymphocytes Absolute Auto 3.8 X10*3/uL (1.2-4.9); Lymphocytes Percent Auto 24.3 % (20-40); Mean Corpuscular HGB Conc 32.6 g/dl (31.0-35.0); Mean Corpuscular Hemoglobin 27.2 pg (27.0-33.0); Mean Corpuscular Volume 83.5 fL (80.0-98.0); Mean Platelet Volume 9.9 fL (9.4-12.3); Monocytes Absolute Auto 0.7 X10*3/uL (0.1-1.2); Monocytes Percent Auto 4.3 % (2-11); Neut%MD 69.3 %; Neutrophils Absolute Auto 10.9 x10*3/uL (2.0-8.3); Neutrophils Percent Auto 69.3 % (45-73); Platelet Count 357 X10*3/uL (160-400); Red Blood Count 4.67 X10*6/uL (4.20-5.50); Red Cell Distribution Width 14.5 % (11.0-16.0); WBCANC 15.7 X10*3/uL; White Blood Count 15.7 X10*3/uL (4.8-10.8)
[2023-01-04 18:29] LABS: Valproate 24.3 mcg/mL (50.0-100.0)
[2023-01-04 18:30] LABS: Alanine Aminotransferase 26 U/L (0-31); Alkaline Phosphatase 73 U/L (39-117); Anion Gap 15 (12-20); Aspartate Amino Transferase 20 U/L (5-31); Bilirubin Total 0.1 mg/dL (0.0-1.0); Blood Urea Nitrogen 12 mg/dL (9-16); Calcium 9.6 mg/dL (8.4-10.2); Carbon Dioxide 23 mmol/L (22-29); Chloride 107 mmol/L (96-108); Estimated Glomerular Filt Rate > 60; Glucose Random 146 mg/dL (60-115); Potassium 4.2 mmol/L (3.3-5.1); Sodium 141 mmol/L (135-145); Total Protein 6.8 g/dL (6.5-8.0)
== END 2023-01-04 17:01 | disposition home or self-care (01) ==
LOC: HO.LABR 17:00
PROVIDERS: PCP Internal Medicine; Visit Provider Clinical Nurse Specialist Psychiatric/Mental Health, Adult
DX: Z79.899 Other long term (current) drug therapy (principal)
CPT/HCPCS: 36415; 80053; 80164; 85025

== ENCOUNTER 2023-01-22 11:09 | Inpatient (IN) | payer OTHER, SELFPAY ==
--- NOTE | 2023-01-22 | ECG_ITS ---
Test Reason : MEDICAL CLEAR Blood Pressure : / mmHG Vent. Rate : 088 BPM Atrial Rate : 088 BPM P-R Int : 122 ms QRS Dur : 088 ms QT Int : 386 ms P-R-T Axes : 057 065 046 degrees QTc Int : 467 ms Sinus rhythm with Premature supraventricular complexes Otherwise normal ECG When compared with ECG of 23-APR-2022 13:11, Premature supraventricular complexes are now Present Referred By: Shaista Bob Electronically Signed By:TEE LOBO
--- NOTE | ~2023-01-22 | XR_ITS ---
EXAMINATION: XR CHEST CLINICAL INFORMATION: Covid infection. Productive cough. COMPARISON: None available. TECHNIQUE: Frontal view of the chest was obtained. FINDINGS: No significant abnormality is noted involving the heart, lungs, mediastinum, bony thorax or soft tissues. XR/XR chest 1V IMPRESSION: Unremarkable examination.
[2023-01-22 11:17] VITALS: BP 106/72; BP 127/77; PULSE 83; PULSE 92; RESP 18; O2SAT 100; O2SAT 97; BMI 45.7
--- NOTE | 2023-01-22 11:20 | PC.NURSE ---
FORTINO from [facility]. hx of schizophrenia. endorses CAH, denies SI/HI/VH. Poor sleep / nausea x 1.5 weeks. Reports she has been med compliant.
--- NOTE | 2023-01-22 11:35 | ED.PSYCH ---
HPI - Psych General Chief Complaint: Psychiatric Symptoms Stated Complaint: pt states schizophrenia is acting up Time Seen by Provider: 01/22/23 11:14 Source: patient, RN notes reviewed and old records reviewed Mode of arrival: EMS Limitations: no limitations History of Present Illness HPI Narrative: 47 yo female with PMHx of schizophrenia, DM, HTN, and bacteremia presenting to the ED today via EMS with complaints of auditory hallucinations and insomnia x1 wk. Admits to hearing voices telling her to harm herself and has not been able to sleep due to this. Reports feeling frightened as she cannot decipher what is real and what isn't. Reports taking home medications as prescribed, no missed doses. Denies SI/ HI. Denies substance or etoh use. MD complaint: hallucinations Related Data Home Medications Medication Instructions Recorded Confirmed ascorbic acid (vitamin C) 500 mg 1 tab PO BID 03/07/22 04/21/22 tablet (Vitamin C) clozapine 100 mg tablet 3 tab PO BEDTIME 03/07/22 04/21/22 divalproex 500 mg tablet,extended 2 tab PO BEDTIME 03/07/22 04/21/22 release 24 hr dulaglutide 1.5 mg/0.5 mL 0.5 ml subcut WE@0900 03/07/22 04/21/22 subcutaneous pen injector (Trulicity) ferrous sulfate 325 mg (65 mg 325 mg PO BID 03/07/22 04/21/22 iron) tablet insulin glargine 100 unit/mL (3 65 unit subcut BEDTIME 03/07/22 04/21/22 mL) subcutaneous pen (Lantus Solostar U-100 Insulin) insulin lispro 100 unit/mL See Protocol subcut 03/07/22 04/21/22 subcutaneous pen TID@0800,1200,1600 metformin 500 mg tablet,extended 2 tab PO BID 03/07/22 04/21/22 release 24 hr metoprolol tartrate 25 mg tablet 1 tab PO BID 03/07/22 04/21/22 omeprazole 20 mg capsule,delayed 1 cap PO DAILY@0630 03/07/22 04/21/22 release perphenazine 4 mg tablet 1 tab PO BID 03/07/22 04/21/22 docusate sodium 100 mg capsule 100 mg PO BID 04/21/22 04/21/22 (Colace) Previous Rx's Medication Instructions Recorded clozapine 100 mg tablet 100 mg PO DAILY 30 days #30 tabs 05/08/22 clozapine 25 mg tablet 25 mg PO DAILY 30 days #30 tabs 05/08/22 lisinopril 5 mg tablet 5 mg PO DAILY 30 days #30 tabs 05/08/22 sennosides 8.6 mg-docusate sodium 1 tab PO BID 30 days #60 tabs 05/08/22 50 mg tablet (Senna Plus) sertraline 50 mg tablet 50 mg PO DAILY 30 days #30 tabs 05/08/22 ondansetron 4 mg disintegrating 4 mg PO Q8H PRN nausea and 06/22/22 tablet vomiting 5 days #15 tabs qgivavzwmrqoh-UL-wzqvriylibj 5 10 ml PO Q4H PRN cough #237 mL 06/22/22 mg-10 mg-100 mg/5 mL oral liquid (Adult Robitussin Peak Cold M-S) Allergies Allergy/AdvReac Type Severity Reaction Status Date / Time Sulfa (Sulfonamide Allergy Intermediate PUFFY EYES Verified 04/22/22 06:14 Antibiotics) [SULFA (SULFONAMIDE ANTIBIOTICS)] Penicillins [PENICILLINS] Allergy Mild PT STATES Verified 04/22/22 06:14 NOTHING HAPPENS, ALLG LISTED ON TRANF SHEET Review of Systems Review of Systems: Constitutional: No Fever, No Chills, No Night Sweats, + Fatigue, No Malaise ENT/Mouth: No Ear Pain, No Nasal Congestion, No Sinus Pain Eyes: No Eye Pain, No Swelling, No Redness, No Vision Changes Cardiovascular: No Chest Pain, No SOB, No Dyspnea on Exertion, No Orthopnea, No Edema, No Palpitations Respiratory: No Cough, No Sputum, No Wheezing, No Dyspnea Gastrointestinal: No Nausea, No Vomiting, No Diarrhea, No Constipation, No Abdominal pain Genitourinary: No irregular bleeding, No Dysuria, No Urinary Frequency Musculoskeletal: No joint pain, No Myalgias, No Joint Swelling Skin: No Skin Lesions, No rash Neuro: No Weakness, No Numbness, No Paresthesias, No Loss of Consciousness, No Dizziness, No Headache Psych: No Anxiety/Panic, No Depression, + AH, No SI/HI/VH, + insomnia Yes all other systems are reviewed and are negative Constitutional: Constitutional: Reports as per [facility] Past Medical History Attestation statement: The following information was validated with the patient. Source: old records reviewed Medical History Diabetes Gram-positive bacteremia HTN (hypertension) Social History Social History Household Members: Other Household Members Other:: [facility] Housing: Other Housing Other:: [facility] Do you presently have visiting nurse or other home services: No Alcohol intake: never Patient Tobacco Use Status: Current everyday Tobacco user Tobacco use type: Cigarette Cigarette Packs Per Day: 10 Cigarettes Per Day: 200.0 Years Smoked: 18 Second Hand Smoke Exposure: No Advance Directives: No Advance Directives Information Provided: Yes service: No Current occupational status: disabled Sexual orientation: Don't Know Physical Exam Vital Signs: Vital Signs: Last Vital Signs Pulse 92 01/22/23 11:17 Resp 18 01/22/23 11:17 BP 127/77 01/22/23 11:17 Pulse Ox 97 01/22/23 11:17 O2 Del Method Room Air 01/22/23 11:17 BMI result Body Mass Index 45.7 vital signs stable Const: General: cooperative, healthy appearing, no acute distress, alert and awake Nutritional Appearance: obese Orientation/consciousness: patient oriented x3 Limitations: no limitations HEENT: Head: Yes normal to inspection and Yes atraumatic Ears: hearing grossly normal bilaterally General nose exam: Normal external nose present Face and sinus: Yes normal facial exam Eyes: General: appearance normal, both eyes and all related structures EOM: EOMs intact bilaterally Neck: Neck: Yes normal visual inspection and Yes no meningeal signs Resp: Effort & Inspection: normal respiratory effort and no respiratory distress Auscultation: clear to auscultation bilaterally Cardio: Rate: regular rate Heart sounds: S1 normal heart sound present and S2 normal heart sound present GI: Inspection: Yes normal to inspection Palpation (GI): Soft to palpation, nontender, no guarding and not rigid : General: Yes no CVA tenderness Back/Spine/Pelvis: Back: no CVA tenderness Skin: Rashes: no rashes Wounds: no wounds Neuro: General: patient oriented x3, tone normal and no meningeal signs Cranial nerves: Yes CN's II-XII intact bilaterally Gait exam (Neuro): Normal gait present Extrem: General: Yes normal to inspection Psych: Appearance: grossly normal Mental Status: mental status grossly normal Speech and movement: Normal speech and movement present Affect: normal affect Attitude: cooperative Thought process: Normal thought process present Thought content: Hallucination(s) present auditory Course Course Course Narrative: -1517-- mild leukocytosis which appears to be patient's baseline. no acute electrolyte abnormalities requiring intervention. UA negative for infection. Urine negative. COVID negative. ETOH negative. Utox positive for opioids, otherwise negative. Patient's workup is unremarkable. Medically cleared for care team. Physician observation initiated at 15:43 -1630--ED care transferred to [facility] pending CARE eval Medical Decision Making Medical Decision Making [facility] Narrative: 47 yo female with PMHx of schizophrenia presenting to the ED today via EMS with complains of auditory hallucinations and insomnia x1 wk. Vital signs stable, patient nontoxic appearing in NAD. Physical exam unremarkable. Clinical concern for schizophrenia vs acute psychosis vs insomnia vs medication non compliance Plan: basic labs, medical clearance/CARE eval Please refer to course for remaining clinical decision making, interpretation of labs/imaging results, and discussions with consultants and/or family members. Differential Diagnosis Differential Diagnoses: The differential diagnosis associated with the presentation includes As above Admission/Observation Consideration of admission/observation: Escalation of care including admission/observation considered Consult Healthcare Provider Management of the patient was discussed with: Behavioral Health Provider Lab Data [facility] Lab Attestation statement: I reviewed the patient's lab results. As above. 01/22/23 12:41 01/22/23 12:41 Labs: Lab Results 01/22/23 01/22/23 01/22/23 Range/Units 12:22 12:34 12:35 WBC (4.8-10.8) X10*3/uL RBC (4.20-5.50) X10*6/uL Hgb (12.0-16.0) g/dl Hct (37.0-47.0) % MCV (80.0-98.0) fL MCH (27.0-33.0) pg MCHC (31.0-35.0) g/dl RDW (11.0-16.0) % Plt Count (160-400) X10*3/uL MPV (9.4-12.3) fL Immature Gran % (Auto) (0.0-0.4) % Neut % (Auto) (45-73) % Lymph % (Auto) (20-40) % [place] % (Auto) (2-11) % Eos % (Auto) (0-4) % Baso % (Auto) (0-2) % Lymph # (Auto) (1.2-4.9) X10*3/uL [place] # (Auto) (0.1-1.2) X10*3/uL Eos # (Auto) (0.0-0.4) X10*3/uL Baso # (Auto) (0.0-0.2) X10*3/uL Abs Immat Gran (auto) (0.00-0.03) X10*3/uL Absolute Neuts (auto) (2.0-8.3) x10*3/uL Absolute Nucleated RBC (0.0-0.012) X10*3/uL Nucleated RBC % (auto) (0.0-0.2) /100WBC Sodium (135-145) mmol/L Potassium (3.3-5.1) mmol/L Chloride (96-108) mmol/L Carbon Dioxide (22-29) mmol/L Anion Gap (12-20) BUN (9-16) mg/dL Creatinine (0.5-1.4) mg/dL Estim Creat Clear Calc Estimated GFR POC Glucose 144 H (60-115) mg/dL Random Glucose (60-115) mg/dL Calcium (8.4-10.2) mg/dL Magnesium (1.6-2.6) mg/dL Total Bilirubin (0.0-1.0) mg/dL Direct Bilirubin (0.0-0.5) mg/dL AST (5-31) U/L ALT (0-31) U/L Alkaline Phosphatase (39-117) U/L Total Protein (6.5-8.0) g/dL Albumin (3.5-5.0) g/dL Urine Color Yellow Urine Appearance Clear Urine pH 6.5 (5.0-9.0) Ur Specific [place] <= 1.005 (1.005-1.025) Urine Protein Negative (Neg-Trace) mg/dL Urine Glucose (UA) Negative (Negative) mg/dL Urine Ketones Negative (Negative) mg/dL Urine Blood Negative (Negative) Urine Nitrite Negative (Negative) Ur Leukocyte Esterase Negative (Negative) Urine Opiates Screen POSITIVE H (Not Detect) Urine Fentanyl Screen Not Detected (Not Detect) Ur Barbiturates Screen Not Detected (Not Detect) Ur Phencyclidine Scrn Not Detected (Not Detect) Ur Amphetamines Screen Not Detected (Not Detect) U Benzodiazepines Scrn Not Detected (Not Detect) Urine Cocaine Screen Not Detected (Not Detect) U Marijuana (THC) Screen Not Detected (Not Detect) Ethyl Alcohol mg/dL COVID-19 (ALYSSA) (Negative) COVID-19 Clin Com 01/22/23 01/22/23 01/22/23 Range/Units 12:41 12:41 12:41 WBC 11.1 H (4.8-10.8) X10*3/uL RBC 4.30 (4.20-5.50) X10*6/uL Hgb 11.6 L (12.0-16.0) g/dl Hct 36.8 L (37.0-47.0) % MCV 85.6 (80.0-98.0) fL MCH 27.0 (27.0-33.0) pg MCHC 31.5 (31.0-35.0) g/dl RDW 14.8 (11.0-16.0) % Plt Count 320 (160-400) X10*3/uL MPV 9.6 (9.4-12.3) fL Immature Gran % (Auto) 0.4 (0.0-0.4) % Neut % (Auto) 63.2 (45-73) % Lymph % (Auto) 30.1 (20-40) % [place] % (Auto) 4.6 (2-11) % Eos % (Auto) 1.4 (0-4) % Baso % (Auto) 0.3 (0-2) % Lymph # (Auto) 3.3 (1.2-4.9) X10*3/uL [place] # (Auto) 0.5 (0.1-1.2) X10*3/uL Eos # (Auto) 0.2 (0.0-0.4) X10*3/uL Baso # (Auto) 0.0 (0.0-0.2) X10*3/uL Abs Immat Gran (auto) 0.04 H (0.00-0.03) X10*3/uL Absolute Neuts (auto) 7.0 (2.0-8.3) x10*3/uL Absolute Nucleated RBC 0.000 (0.0-0.012) X10*3/uL Nucleated RBC % (auto) 0.0 (0.0-0.2) /100WBC Sodium 141 (135-145) mmol/L Potassium 4.3 (3.3-5.1) mmol/L Chloride 108 (96-108) mmol/L Carbon Dioxide 26 (22-29) mmol/L Anion Gap 11 L (12-20) BUN 10 (9-16) mg/dL Creatinine 0.66 (0.5-1.4) mg/dL Estim Creat Clear Calc 133.4 Estimated GFR > 60 POC Glucose (60-115) mg/dL Random Glucose 135 H (60-115) mg/dL Calcium 8.6 D (8.4-10.2) mg/dL Magnesium 1.9 (1.6-2.6) mg/dL Total Bilirubin 0.1 (0.0-1.0) mg/dL Direct Bilirubin < 0.2 (0.0-0.5) mg/dL AST 16 (5-31) U/L ALT 21 (0-31) U/L Alkaline Phosphatase 66 (39-117) U/L Total Protein 6.2 L (6.5-8.0) g/dL Albumin 3.5 (3.5-5.0) g/dL Urine Color Urine Appearance Urine pH (5.0-9.0) Ur Specific [place] (1.005-1.025) Urine Protein (Neg-Trace) mg/dL Urine Glucose (UA) (Negative) mg/dL Urine Ketones (Negative) mg/dL Urine Blood (Negative) Urine Nitrite (Negative) Ur Leukocyte Esterase (Negative) Urine Opiates Screen (Not Detect) Urine Fentanyl Screen (Not Detect) Ur Barbiturates Screen (Not Detect) Ur Phencyclidine Scrn (Not Detect) Ur Amphetamines Screen (Not Detect) U Benzodiazepines Scrn (Not Detect) Urine Cocaine Screen (Not Detect) U Marijuana (THC) Screen (Not Detect) Ethyl Alcohol < 10 mg/dL COVID-19 (ALYSSA) Negative (Negative) COVID-19 Clin Com See Note Radiology Impression Discussion of test interpretation with radiology: I have reviewed the radiologist's reading. External Record Review External record reviewed: Inpatient record, Office record, Outpatient record, Prior outpatient labs, Prior outpatient radiology, Primary care record and Outside ED record Tests considered The following testing was considered but not selected: As above Chronic Conditions Patient?s care impacted by: Other Social Determinants Patient?s care significantly limited by Social Determinants of Health including: Problems related to primary support group Discharge Plan Discharge Clinical Impression: Schizophrenia, Acute psychosis Patient Disposition: Still a Patient Instructions: Schizophrenia (ED), Hallucinations (ED) Prescriptions: No Action docusate sodium [Colace] 100 mg Capsule 100 mg PO BID clozapine 100 mg Tablet 100 mg PO DAILY 30 Days Qty: 30 0RF sennosides-docusate sodium [Senna Plus] 8.6-50 mg Tablet 1 tab PO BID 30 Days Qty: 60 0RF lisinopril 5 mg Tablet 5 mg PO DAILY 30 Days Qty: 30 0RF Protocol: Hold for SBP< HOLD for SBP < : 90 clozapine 25 mg Tablet 25 mg PO DAILY 30 Days Qty: 30 0RF sertraline 50 mg Tablet 50 mg PO DAILY 30 Days Qty: 30 0RF ondansetron 4 mg tablet,disintegrating 4 mg PO Q8H PRN (Reason: nausea and vomiting) 5 Days Qty: 15 0RF Adult Robitussin Peak Cold M-S 5-10-100 mg/5 mL liquid 10 ml PO Q4H PRN (Reason: cough) Qty: 237 0RF clozapine 100 mg tablet 3 tab PO BEDTIME ascorbic acid (vitamin C) [Vitamin C] 500 mg tablet 1 tab PO BID ferrous sulfate 325 mg (65 mg iron) Tablet 325 mg PO BID divalproex 500 mg tablet extended release 24 hr 2 tab PO BEDTIME perphenazine 4 mg tablet 1 tab PO BID omeprazole 20 mg capsule,delayed release(DR/EC) 1 cap PO DAILY@0630 metformin 500 mg tablet extended release 24 hr 2 tab PO BID insulin lispro 100 unit/mL insulin pen See Protocol subcut TID@0800,1200,1600 Protocol: Insulin Correction Scale Less than or equal to 110 ---- Give (units): 0 111 to 150 Give (units): 0 151 to 200 Give (units): 2 201 to 250 Give (units): 4 251 to 300 Give (units): 6 301 to 350 Give (units): 8 Greater than 350 Give (units): 10 Call MD if Blood Glucose > : 350 metoprolol tartrate 25 mg tablet 1 tab PO BID insulin glargine [Lantus Solostar U-100 Insulin] 100 unit/mL (3 mL) Insulin Pen 65 unit subcut BEDTIME Trulicity 1.5 mg/0.5 mL pen injector 0.5 ml subcut WE@0900
--- NOTE | 2023-01-22 12:24 | PC.NURSE ---
POC 144
[2023-01-22 12:30] LABS: Glucose, Whole Blood 144 mg/dL (60-115)
[2023-01-22 12:53] LABS: MANUAL DIFF FLAG NO
[2023-01-22 12:55] LABS: Basophils Percent Auto 0.3 % (0-2); Eosinophils Absolute Auto 0.2 X10*3/uL (0.0-0.4); Eosinophils Percent Auto 1.4 % (0-4); Hematocrit 36.8 % (37.0-47.0); Hemoglobin 11.6 g/dl (12.0-16.0); Imm Gran Abs Auto 0.04 X10*3/uL (0.00-0.03); Imm Gran Pct Auto 0.4 % (0.0-0.4); Lymphocytes Absolute Auto 3.3 X10*3/uL (1.2-4.9); Lymphocytes Percent Auto 30.1 % (20-40); Mean Corpuscular HGB Conc 31.5 g/dl (31.0-35.0); Mean Corpuscular Volume 85.6 fL (80.0-98.0); Mean Platelet Volume 9.6 fL (9.4-12.3); Monocytes Absolute Auto 0.5 X10*3/uL (0.1-1.2); Monocytes Percent Auto 4.6 % (2-11); Neutrophils Percent Auto 63.2 % (45-73); Platelet Count 320 X10*3/uL (160-400); Red Cell Distribution Width 14.8 % (11.0-16.0); White Blood Count 11.1 X10*3/uL (4.8-10.8)
[2023-01-22 12:59] LABS: Appearance Urine Clear; Color Urine Yellow; Glucose Urine UA Negative (Negative); Leukocyte Esterase Urine Negative (Negative); Nitrite Urine Negative (Negative); PH 6.5 (5.0-9.0); Specific Gravity - Urine <= 1.005 (1.005-1.025); Urine Blood Negative (Negative); Urine Ketones Negative (Negative); Urine Protein Negative (Neg-Trace)
[2023-01-22 13:05] LABS: Amphetamine Screen Urine Not Detected (Not Detect); Barbiturates, Urine Not Detected (Not Detect); Benzodiazepines Screen Urine Not Detected (Not Detect); Cannabinoid Screen Urine Not Detected (Not Detect); Cocaine Screen Urine Not Detected (Not Detect); Fentanyl, urine Not Detected (Not Detect); Opiate Screen Urine POSITIVE (Not Detect); Phencyclidine Screen Urine Not Detected (Not Detect)
[2023-01-22 13:19] LABS: Alanine Aminotransferase 21 U/L (0-31); Albumin Level 3.5 g/dL (3.5-5.0); Alkaline Phosphatase 66 U/L (39-117); Anion Gap 11 (12-20); Aspartate Amino Transferase 16 U/L (5-31); Bilirubin Direct < 0.2 mg/dL (0.0-0.5); Bilirubin Total 0.1 mg/dL (0.0-1.0); Blood Urea Nitrogen 10 mg/dL (9-16); Calcium 8.6 mg/dL (8.4-10.2); Carbon Dioxide 26 mmol/L (22-29); Chloride 108 mmol/L (96-108); Creatinine Clr Calc Pharmacy 133.4; Estimated Glomerular Filt Rate > 60; Ethanol < 10 mg/dL; Glucose Random 135 mg/dL (60-115); Magnesium 1.9 mg/dL (1.6-2.6); Potassium 4.3 mmol/L (3.3-5.1); Sodium 141 mmol/L (135-145); Total Protein 6.2 g/dL (6.5-8.0)
[2023-01-22 13:34] LABS: COVID-19 Test Negative (Negative); IDNOW Serial# 08D9AD1C
--- NOTE | 2023-01-22 16:51 | PC.NURSE ---
Attempted to call senior living to verify meds, unable to reach them. [facility] pharmacy, [facility].
[2023-01-22 17:00] VITALS: BP 144/84; PULSE 89; RESP 20; TEMP 36.6; O2SAT 98
[2023-01-23 02:10] VITALS: BMI 45.1
[2023-01-23] MEDS: Insulin Glargine,Hum.rec.anlog 100 UNIT/ML 10 ML VIAL 70 UNIT SUBCUT ×2 (02:18→20:47)
[2023-01-23] MEDS: Perphenazine 4 MG TABLET PO ×3 (02:21→20:47)
[2023-01-23] MEDS: metFORMIN HCl ER 500 MG TAB.ER.24H 1000 MG PO ×3 (02:21→20:49)
[2023-01-23] MEDS: cloZAPine 100 MG TABLET 300 MG PO ×2 (02:21→20:48)
[2023-01-23] MEDS: Divalproex Sodium ER 500 MG TAB.ER.24H 1000 MG PO (02:21)
[2023-01-23] MEDS: Metoprolol Tartrate 25 MG TABLET PO ×3 (02:21→20:47)
--- NOTE | 2023-01-23 02:33 | PC.ADMIT ---
Kyara is 47 year old female admitted on a Conditional Voluntary Hospitalization from the [facility] for delusions, auditory/visual hallucinations and schizophrenia. she is alert and oriented X's 4, pleasant and cooperative. she states that she has auditory hallucinations they say bad mean things to me. she endorses CAH they tell me to kill myself . she endorses visual hallucinations sometimes I think I see things but I'm not sure she endorses suicidal ideation but denies a plan and states she is safe on the unit. Kyara is noted to have 3+ pitting edema to her bilateral lower extremities and is also noted to be short of breath upon exertion. she states she usually get[s] swelling in [my] legs and states that she is just tired . all admission documentation completed, monitor for safety, initiate Plan of Care
[2023-01-23] MEDS: Omeprazole 20 MG CAPSULE.DR PO (06:44)
[2023-01-23 08:31] LABS: Glucose, Whole Blood 162 mg/dL (60-115)
[2023-01-23 09:35] VITALS: BP 131/56; PULSE 94; RESP 16; TEMP 36.7; O2SAT 96
[2023-01-23] MEDS: Ferrous Sulfate 324 MG TABLET.DR PO (09:36)
[2023-01-23] MEDS: Sennosides/Docusate Sodium TABLET 1 TAB PO (09:36)
[2023-01-23] MEDS: Ascorbic Acid 500 MG TABLET PO (09:36)
[2023-01-23] MEDS: lisinopriL 10 MG TABLET PO (09:36)
[2023-01-23] MEDS: Sertraline HCL 50 MG TABLET PO (09:36)
[2023-01-23 10:41] LABS: Valproate 24.3 mcg/mL (50.0-100.0)
[2023-01-23 10:44] LABS: Estimated Average Glucose 128 mg/dL; Hemoglobin A1c % 6.1 % (<6.0)
[2023-01-23 10:53] LABS: Alanine Aminotransferase 21 U/L (0-31); Albumin Level 3.4 g/dL (3.5-5.0); Alkaline Phosphatase 69 U/L (39-117); Anion Gap 11 (12-20); Aspartate Amino Transferase 16 U/L (5-31); Bilirubin Total 0.2 mg/dL (0.0-1.0); Blood Urea Nitrogen 13 mg/dL (9-16); Carbon Dioxide 24 mmol/L (22-29); Chloride 107 mmol/L (96-108); Cholesterol 160 mg/dL (<200); Creatinine Clr Calc Pharmacy 132.4; Estimated Glomerular Filt Rate > 60; Glucose Fasting 205 mg/dL (60-99); HDL Cholesterol 35 mg/dL (>40); LDL Cholesterol Calculated 93 mg/dL (<100); Potassium 4.4 mmol/L (3.3-5.1); Sodium 138 mmol/L (135-145); Total Protein 5.9 g/dL (6.5-8.0); Triglycerides 164 mg/dL (<150)
--- NOTE | 2023-01-23 11:04 | HE.PHANOTE ---
Re: last dose clozaril The nurse for the pt is Renetta. She has been trying to reach halfway to find last dose of clozaril. intermediate is [facility] and Renetta left message with advertising supervisor (Jazmin) @[phone]. There is alternate neon glass blower advertising supervisor number if needed [phone].
[2023-01-23 11:14] LABS: Free T4 (Free Thyroxine) 0.79 ng/dL (0.71-1.85)
[2023-01-23 11:16] LABS: Folate 4.5 ng/mL (> or = 4.0); Vitamin B12 204 pg/mL (200-900)
[2023-01-23] MEDS: cloZAPine 100 MG TABLET PO (13:36)
[2023-01-23] MEDS: cloZAPine 25 MG TABLET PO (13:36)
--- NOTE | 2023-01-23 13:38 | P.HPPS_ITS ---
HPI Date of Service: 01/23/23 Chief Complaint: Psychosis HPI Narrative: per CARE team patriciapam was BIBA from half-way after staff became concerned about her behavioral changes and persistent c/o CAH to self harm. she stated the increase in CAH had been going on for a week and had been interfering with her sleep. she denied SI to crisis staff and was unable to describe what the CAH were telling her to do. staff collateral indicated pt is typically bright and happy and able to engage in day programming, which has not been the case the past week. staff also reported pt has been taking her medications, which are administered by staff. on interview with on behavioral health unit, pt is found sleeping/resting in bed but is rousable. she is disheveled and somewhat physiologically aroused. she describes herself as being very tired and very struck. she appears to be somewhat in a crisis. she reports her symptoms are full-blown. it's scary! she adds she cannot tell whether or not her experiences are real. her relatively high dose of clozaril is noted as well as her very low dose of VPA, with a level of 24.3 in the ED. MD suggests as she appears to be prescribed an adequate amount of clozaril to very likely be therapeutic on that medication, but that is not the case for VPA, that the first order of business should be to get her to a therapeutic level of VPA. suggests doubling VPA dosing as of fallon, pt agrees. despite her diagnosis of schizophrenia rather than bipolar disorder or schizoaffective disorder, her outpatient prescriber is maintaining her on VPA, which indicates some perception of mood instability or stone in her history. Past Psychiatric History: Inpatient: last one about one year ago OP: [facility] Past trials: clozaril, perphenazine, depakote Medical Evaluation Reviewed: Yes [facility] Medical History Diabetes Gram-positive bacteremia HTN (hypertension) Social History: lives in . No children, not . Sister was guardian until 2020. raised by parents until 7 yo when parents . 1 sister. mother 2021. Substance History: utox opioids POS, but pt does not use drugs. unclear why the anomalous result. Trauma History: none Diagnostics Vital Signs (24Hr): Vital Signs - 24 hr 01/22/23 17:00 01/23/23 09:35 Temperature 98 F 98.1 F Pulse Rate 89 94 Respiratory Rate 20 16 Blood Pressure 144/84 H 131/56 L Pulse Oximetry 98 96 Oxygen Delivery Method Room Air Room Air BMI result Body Mass Index 45.1 Labs 01/22/23 12:41 01/23/23 09:59 Labs: Laboratory Results - last 48 hr 01/22/23 01/22/23 01/22/23 12:22 12:34 12:35 WBC RBC Hgb Hct MCV MCH MCHC RDW Plt Count MPV Immature Gran % (Auto) Neut % (Auto) Lymph % (Auto) [place] % (Auto) Eos % (Auto) Baso % (Auto) Lymph # (Auto) [place] # (Auto) Eos # (Auto) Baso # (Auto) Abs Immat Gran (auto) Absolute Neuts (auto) Absolute Nucleated RBC Nucleated RBC % (auto) Sodium Potassium Chloride Carbon Dioxide Anion Gap BUN Creatinine Estim Creat Clear Calc Estimated GFR POC Glucose 144 H Random Glucose Fasting Glucose Estimat Average Glucose Hemoglobin A1c % Calcium Magnesium Total Bilirubin Direct Bilirubin AST ALT Alkaline Phosphatase Total Protein Albumin Triglycerides Cholesterol LDL Cholesterol, Calc HDL Cholesterol Vitamin B12 Folate TSH Free T4 Urine Color Yellow Urine Appearance Clear Urine pH 6.5 Ur Specific [place] <= 1.005 Urine Protein Negative Urine Glucose (UA) Negative Urine Ketones Negative Urine Blood Negative Urine Nitrite Negative Ur Leukocyte Esterase Negative Urine Opiates Screen POSITIVE H Urine Fentanyl Screen Not Detected Ur Barbiturates Screen Not Detected Valproic Acid Ur Phencyclidine Scrn Not Detected Ur Amphetamines Screen Not Detected U Benzodiazepines Scrn Not Detected Urine Cocaine Screen Not Detected U Marijuana (THC) Screen Not Detected Ethyl Alcohol COVID-19 ([facility]) COVID-19 Clin Com 01/22/23 01/22/23 01/22/23 12:41 12:41 12:41 WBC 11.1 H RBC 4.30 Hgb 11.6 L Hct 36.8 L MCV 85.6 MCH 27.0 MCHC 31.5 RDW 14.8 Plt Count 320 MPV 9.6 Immature Gran % (Auto) 0.4 Neut % (Auto) 63.2 Lymph % (Auto) 30.1 [place] % (Auto) 4.6 Eos % (Auto) 1.4 Baso % (Auto) 0.3 Lymph # (Auto) 3.3 [place] # (Auto) 0.5 Eos # (Auto) 0.2 Baso # (Auto) 0.0 Abs Immat Gran (auto) 0.04 H Absolute Neuts (auto) 7.0 Absolute Nucleated RBC 0.000 Nucleated RBC % (auto) 0.0 Sodium 141 Potassium 4.3 Chloride 108 Carbon Dioxide 26 Anion Gap 11 L BUN 10 Creatinine 0.66 Estim Creat Clear Calc 133.4 Estimated GFR > 60 POC Glucose Random Glucose 135 H Fasting Glucose Estimat Average Glucose Hemoglobin A1c % Calcium 8.6 D Magnesium 1.9 Total Bilirubin 0.1 Direct Bilirubin < 0.2 AST 16 ALT 21 Alkaline Phosphatase 66 Total Protein 6.2 L Albumin 3.5 Triglycerides Cholesterol LDL Cholesterol, Calc HDL Cholesterol Vitamin B12 Folate TSH Free T4 Urine Color Urine Appearance Urine pH Ur Specific [place] Urine Protein Urine Glucose (UA) Urine Ketones Urine Blood Urine Nitrite Ur Leukocyte Esterase Urine Opiates Screen Urine Fentanyl Screen Ur Barbiturates Screen Valproic Acid Ur Phencyclidine Scrn Ur Amphetamines Screen U Benzodiazepines Scrn Urine Cocaine Screen U Marijuana (THC) Screen Ethyl Alcohol < 10 COVID-19 ([facility]) Negative COVID-19 Clin Com See Note 01/23/23 01/23/23 01/23/23 08:24 09:59 09:59 WBC RBC Hgb Hct MCV MCH MCHC RDW Plt Count MPV Immature Gran % (Auto) Neut % (Auto) Lymph % (Auto) [place] % (Auto) Eos % (Auto) Baso % (Auto) Lymph # (Auto) [place] # (Auto) Eos # (Auto) Baso # (Auto) Abs Immat Gran (auto) Absolute Neuts (auto) Absolute Nucleated RBC Nucleated RBC % (auto) Sodium 138 Potassium 4.4 Chloride 107 Carbon Dioxide 24 Anion Gap 11 L BUN 13 Creatinine 0.66 Estim Creat Clear Calc 132.4 Estimated GFR > 60 POC Glucose 162 H Random Glucose Fasting Glucose 205 H Estimat Average Glucose Hemoglobin A1c % Calcium 9.0 Magnesium Total Bilirubin 0.2 Direct Bilirubin AST 16 ALT 21 Alkaline Phosphatase 69 Total Protein 5.9 L Albumin 3.4 L Triglycerides 164 H Cholesterol 160 LDL Cholesterol, Calc 93 HDL Cholesterol 35 L Vitamin B12 Folate TSH 3.20 Free T4 0.79 Urine Color Urine Appearance Urine pH Ur Specific [place] Urine Protein Urine Glucose (UA) Urine Ketones Urine Blood Urine Nitrite Ur Leukocyte Esterase Urine Opiates Screen Urine Fentanyl Screen Ur Barbiturates Screen Valproic Acid 24.3 L Ur Phencyclidine Scrn Ur Amphetamines Screen U Benzodiazepines Scrn Urine Cocaine Screen U Marijuana (THC) Screen Ethyl Alcohol COVID-19 ([facility]) COVID-19 [employer] [place] Com 01/23/23 01/23/23 09:59 09:59 WBC RBC Hgb Hct MCV MCH MCHC RDW Plt Count MPV Immature Gran % (Auto) Neut % (Auto) Lymph % (Auto) [place] % (Auto) Eos % (Auto) Baso % (Auto) Lymph # (Auto) [place] # (Auto) Eos # (Auto) Baso # (Auto) Abs Immat Gran (auto) Absolute Neuts (auto) Absolute Nucleated RBC Nucleated RBC % (auto) Sodium Potassium Chloride Carbon Dioxide Anion Gap BUN Creatinine Estim Creat Clear Calc Estimated GFR POC Glucose Random Glucose Fasting Glucose Estimat Average Glucose 128 Hemoglobin A1c % 6.1 H Calcium Magnesium Total Bilirubin Direct Bilirubin AST ALT Alkaline Phosphatase Total Protein Albumin Triglycerides Cholesterol LDL Cholesterol, Calc HDL Cholesterol Vitamin B12 204 Folate 4.5 TSH Free T4 Urine Color Urine Appearance Urine pH Ur Specific [place] Urine Protein Urine Glucose (UA) Urine Ketones Urine Blood Urine Nitrite Ur Leukocyte Esterase Urine Opiates Screen Urine Fentanyl Screen Ur Barbiturates Screen Valproic Acid Ur Phencyclidine Scrn Ur Amphetamines Screen U Benzodiazepines Scrn Urine Cocaine Screen U Marijuana (THC) Screen Ethyl Alcohol COVID-19 ([facility]) COVID-19 [employer] [place] Com Meds/Allergies Meds Home Medications Medication Instructions Recorded Confirmed Type ascorbic acid (vitamin C) 500 mg 1 tab PO DAILY 03/07/22 01/22/23 History tablet (Vitamin C) clozapine 100 mg tablet 3 tab PO BEDTIME 03/07/22 01/22/23 History divalproex 500 mg tablet,extended 2 tab PO BEDTIME 03/07/22 01/22/23 History release 24 hr dulaglutide 1.5 mg/0.5 mL 0.5 ml subcut WE@0900 03/07/22 01/22/23 History subcutaneous pen injector (Trulicity) ferrous sulfate 325 mg (65 mg 325 mg PO DAILY 03/07/22 01/22/23 History iron) tablet insulin glargine 100 unit/mL (3 70 unit subcut BEDTIME 03/07/22 01/22/23 History mL) subcutaneous pen (Lantus Solostar U-100 Insulin) metformin 500 mg tablet,extended 2 tab PO BID 03/07/22 01/22/23 History release 24 hr metoprolol tartrate 25 mg tablet 1 tab PO BID 03/07/22 01/22/23 History omeprazole 20 mg capsule,delayed 1 cap PO DAILY@0630 03/07/22 01/22/23 History release perphenazine 4 mg tablet 1 tab PO BID 03/07/22 01/22/23 History docusate sodium 100 mg capsule 100 mg PO BID PRN Constipation 04/21/22 01/22/23 History (Colace) insulin aspart U-100 100 unit/mL 1 sliding scale dose subcut TIDAC 01/22/23 01/22/23 History (3 mL) subcutaneous pen lisinopril 5 mg tablet 10 mg PO DAILY 01/22/23 01/22/23 History sennosides 8.6 mg-docusate sodium 1 tab PO DAILY 01/22/23 01/22/23 History 50 mg tablet (Senna Plus) Allergies Allergies Allergy/AdvReac Type Severity Reaction Status Date / Time Sulfa (Sulfonamide Allergy Intermediate PUFFY EYES Verified 04/22/22 06:14 Antibiotics) [SULFA (SULFONAMIDE ANTIBIOTICS)] Penicillins [PENICILLINS] Allergy Mild PT STATES Verified 04/22/22 06:14 NOTHING HAPPENS, ALLG LISTED ON TRANF SHEET Mental Status Exam Mental Status Exam Narrative: Appearance: wearing hospital gown, appears tired, stressed Behavior: cooperative Psychomotor: no agitation or retardation noted TP: linear TC: no delusions or paranoia expressed Mood: very tired. very struck. Affect: congruent SI: +, OD on meds and whiskey HI: denies AH: reports hearing voices VH: none Insight/judgment: fair x 2. Assessment & Plan Assessment & Plan (1) Schizophrenia: Status: Acute Code(s): F20.9 - Schizophrenia, unspecified Plan increase VPA from 1000 mg QHS to 2000 mg QHS as of tonight. otherwise continue current mgmt. Patient educated on: medication risk/benefits Reason for continued inpatient stay Substantial Risk for: inability to function Statement Statement: I have reviewed the history and physical and performed a pertinent examination on my patient. No changes have occurred unless specified. If the History and Physical was not performed prior to admission, the Hospitalist's service will be consulted for completing the admission physical. Time Spent With Patient Time: Total time managing care of this patient today __55__ minutes.
[2023-01-23 20:30] LABS: Glucose, Whole Blood 221 mg/dL (60-115)
[2023-01-23 20:35] VITALS: BP 112/60; PULSE 82; RESP 18; TEMP 36.6; O2SAT 97
[2023-01-23] MEDS: Divalproex Sodium ER 500 MG TAB.ER.24H 2000 MG PO (20:49)
[2023-01-24] MEDS: Omeprazole 20 MG CAPSULE.DR PO (06:37)
[2023-01-24 08:00] VITALS: BP 134/86; PULSE 75; RESP 18; TEMP 36.3; O2SAT 96
[2023-01-24] MEDS: Perphenazine 4 MG TABLET PO ×2 (09:00→20:59)
[2023-01-24] MEDS: cloZAPine 100 MG TABLET PO (09:02)
[2023-01-24] MEDS: Ferrous Sulfate 324 MG TABLET.DR PO (09:02)
[2023-01-24] MEDS: Ascorbic Acid 500 MG TABLET PO (09:02)
[2023-01-24] MEDS: Sennosides/Docusate Sodium TABLET 1 TAB PO (09:03)
[2023-01-24] MEDS: Sertraline HCL 50 MG TABLET PO (09:03)
[2023-01-24] MEDS: cloZAPine 25 MG TABLET PO (09:03)
[2023-01-24] MEDS: metFORMIN HCl ER 500 MG TAB.ER.24H 1000 MG PO ×2 (09:19→21:00)
[2023-01-24] MEDS: Metoprolol Tartrate 25 MG TABLET PO ×2 (09:19→20:59)
[2023-01-24] MEDS: lisinopriL 10 MG TABLET PO (09:19)
[2023-01-24 10:44] LABS: Glucose, Whole Blood 170 mg/dL (60-115)
--- NOTE | 2023-01-24 15:50 | P.PNPSI_ITS ---
Subjective Subjective Date of Service: 01/24/23 Reason For Visit: Psychosis Interim History: very poor hygiene, malodorous. states she is tired and at night trying to sleep. MD asks about her ability to sleep and for her to respond to question about her mood with a more apt adjective, and she only repeats the answers she has already said: mood is tired and she is trying to sleep. she is agreeable to continue current plan of VPA 2000 mg for now with intention to increase to 2500 soon. Mental Status Exam Mental Status Exam Narrative: Appearance: wearing hospital gown, appears tired, disheveled, poorly groomed Behavior: minimally cooperative Psychomotor: no agitation or retardation noted TP: linear TC: no delusions or paranoia expressed Mood: tired. Affect: flat, hypo-intense, non-labile SI: none expressed HI: none expressed AH: reports hearing voices VH: none expressed Insight/judgment: fair x 2. Diagnostics Vital Signs (24Hr): Vital Signs - 24 hr 01/23/23 20:35 01/24/23 08:00 Temperature 97.8 F 97.3 F Pulse Rate 82 75 Respiratory Rate 18 18 Blood Pressure 112/60 134/86 Pulse Oximetry 97 96 Oxygen Delivery Method Room Air Room Air BMI result Body Mass Index 45.1 Labs 01/22/23 12:41 01/23/23 09:59 Labs: Laboratory Results - last 48 hr 01/23/23 01/23/23 01/23/23 08:24 09:59 20:26 Sodium 138 Potassium 4.4 Chloride 107 Carbon Dioxide 24 Anion Gap 11 L BUN 13 Creatinine 0.66 Estim Creat Clear Calc 132.4 Estimated GFR > 60 POC Glucose 162 H 221 H Fasting Glucose 205 H Estimat Average Glucose 128 Hemoglobin A1c % 6.1 H Calcium 9.0 Total Bilirubin 0.2 AST 16 ALT 21 Alkaline Phosphatase 69 Total Protein 5.9 L Albumin 3.4 L Triglycerides 164 H Cholesterol 160 LDL Cholesterol, Calc 93 HDL Cholesterol 35 L Vitamin B12 204 Folate 4.5 TSH 3.20 Free T4 0.79 Valproic Acid 24.3 L 01/24/23 10:37 Sodium Potassium Chloride Carbon Dioxide Anion Gap BUN Creatinine Estim Creat Clear Calc Estimated GFR POC Glucose 170 H Fasting Glucose Estimat Average Glucose Hemoglobin A1c % Calcium Total Bilirubin AST ALT Alkaline Phosphatase Total Protein Albumin Triglycerides Cholesterol LDL Cholesterol, Calc HDL Cholesterol Vitamin B12 Folate TSH Free T4 Valproic Acid Medications Medications Current Medications Acetaminophen (Acetaminophen 325 Mg Tablet) 650 mg PO Q6H PRN PRN Reason: Headache/Pain Mild Scale (1-3) Al Hydroxide/Mg Hydroxide (Magnesium Hydrox/Alum Hydrox 30 Ml Oral.Susp) 30 ml PO Q6H PRN PRN Reason: Heartburn/Nausea Ascorbic Acid (Ascorbic Acid 500 Mg Tablet) 500 mg PO DAILY [facility] Last Admin: 01/24/23 09:02 Dose: 500 mg Clozapine (Clozapine 25 Mg Tablet) 25 mg PO DAILY [facility] Last Admin: 01/24/23 09:03 Dose: 25 mg Clozapine (Clozapine 100 Mg Tablet) 100 mg PO DAILY [facility] Last Admin: 01/24/23 09:02 Dose: 100 mg Clozapine (Clozapine 100 Mg Tablet) 300 mg PO BEDTIME [facility] Last Admin: 01/23/23 20:48 Dose: 300 mg Divalproex Sodium (Divalproex Sodium Er 500 Mg Tab.Er.24h) 2,000 mg PO BEDTIME [facility] Last Admin: 01/23/23 20:49 Dose: 2,000 mg Docusate Sodium (Docusate Sodium 100 Mg Capsule) 100 mg PO BID PRN PRN Reason: Constipation Ferrous Sulfate (Ferrous Sulfate 324 Mg Tablet.Dr) 324 mg PO DAILY [facility] Last Admin: 01/24/23 09:02 Dose: 324 mg Hydroxyzine HCl (Hydroxyzine Hcl 25 Mg Tablet) 25 mg PO Q6H PRN PRN Reason: Anxiety Insulin Glargine (Insulin Glargine,Hum.Rec.Anlog 100 Unit/Ml 10 Ml Vial) 70 unit SUBCUT BEDTIME [facility] Last Admin: 01/23/23 20:47 Dose: 70 unit Lisinopril (Lisinopril 10 Mg Tablet) 10 mg PO DAILY [facility]; Protocol Last Admin: 01/24/23 09:19 Dose: 10 mg Magnesium Hydroxide (Milk Of Magnesia 30 Ml Oral.Susp) 30 ml PO DAILY PRN PRN Reason: Constipation Metformin HCl (Metformin Hcl Er 500 Mg Tab.Er.24h) 1,000 mg PO BID [facility] Last Admin: 01/24/23 09:19 Dose: 1,000 mg Metoprolol Tartrate (Metoprolol Tartrate 25 Mg Tablet) 25 mg PO BID [facility]; Protocol Last Admin: 01/24/23 09:19 Dose: 25 mg Nicotine Polacrilex (Nicotine Polacrilex 2 Mg Gum) 4 mg [place]CCAL Q2H PRN PRN Reason: Nicotine Cravings Non-Formulary Medication (Dulaglutide [Trulicity]) 0.5 ml SUBCUT WE@0900 [facility] Omeprazole (Omeprazole 20 Mg Capsule.Dr) 20 mg PO DAILY@0630 [facility] Last Admin: 01/24/23 06:37 Dose: 20 mg Perphenazine (Perphenazine 4 Mg Tablet) 4 mg PO BID [facility] Last Admin: 01/24/23 09:00 Dose: 4 mg Senna/Docusate Sodium (Sennosides/Docusate Sodium Tablet) 1 tab PO DAILY [facility] Last Admin: 01/24/23 09:03 Dose: 1 tab Sertraline HCl (Sertraline Hcl 50 Mg Tablet) 50 mg PO DAILY [facility] Last Admin: 01/24/23 09:03 Dose: 50 mg Trazodone HCl (Trazodone Hcl 50 Mg Tablet) 50 mg PO BEDTIME MRX1 PRN PRN Reason: Insomnia Allergies Allergies Allergy/AdvReac Type Severity Reaction Status Date / Time Sulfa (Sulfonamide Allergy Intermediate PUFFY EYES Verified 04/22/22 06:14 Antibiotics) [SULFA (SULFONAMIDE ANTIBIOTICS)] Penicillins [PENICILLINS] Allergy Mild PT STATES Verified 04/22/22 06:14 NOTHING HAPPENS, ALLG LISTED ON TRANF SHEET Assessment & Plan Assessment & Plan (1) Schizophrenia: Qualifiers: Schizophrenia type: paranoid schizophrenia Qualified Code(s): F20.0 - Paranoid schizophrenia Status: Acute Code(s): F20.9 - Schizophrenia, unspecified Plan 01/23: increase VPA from 1000 mg QHS to 2000 mg QHS as of tonight. otherwise continue current mgmt. 01/24: appears unchanged from yesterday. malodorous, very poor hygiene, unkempt and disheveled. continue current mgmt. plan to increase VPA to 2500 mg in a day or two, as that is more likely to be a therapeutic dose. Reason for continued inpatient stay Substantial Risk for: harm to self, inability to function and rapid decompensation Time Spent With Patient Time: Total time managing care of this patient today __25__ minutes.
[2023-01-24 20:30] VITALS: BP 108/60; PULSE 94; RESP 16; TEMP 36.7; O2SAT 97
[2023-01-24] MEDS: Insulin Glargine,Hum.rec.anlog 100 UNIT/ML 10 ML VIAL 70 UNIT SUBCUT (20:53)
[2023-01-24] MEDS: cloZAPine 100 MG TABLET 300 MG PO (20:55)
[2023-01-24] MEDS: Divalproex Sodium ER 500 MG TAB.ER.24H 2000 MG PO (20:57)
[2023-01-25] MEDS: Omeprazole 20 MG CAPSULE.DR PO (06:28)
[2023-01-25 08:33] LABS: Glucose, Whole Blood 139 mg/dL (60-115)
[2023-01-25] MEDS: Metoprolol Tartrate 25 MG TABLET PO ×2 (08:55→21:56)
[2023-01-25] MEDS: cloZAPine 25 MG TABLET PO (08:55)
[2023-01-25] MEDS: Perphenazine 4 MG TABLET PO ×2 (08:55→21:55)
[2023-01-25] MEDS: Ascorbic Acid 500 MG TABLET PO (08:55)
[2023-01-25] MEDS: cloZAPine 100 MG TABLET PO (08:55)
[2023-01-25] MEDS: Sertraline HCL 50 MG TABLET PO (08:55)
[2023-01-25] MEDS: Sennosides/Docusate Sodium TABLET 1 TAB PO (08:55)
[2023-01-25] MEDS: lisinopriL 10 MG TABLET PO (08:55)
[2023-01-25] MEDS: metFORMIN HCl ER 500 MG TAB.ER.24H 1000 MG PO ×2 (08:55→21:56)
[2023-01-25] MEDS: Ferrous Sulfate 324 MG TABLET.DR PO (08:56)
[2023-01-25 09:00] VITALS: BP 100/59; PULSE 87; RESP 18; TEMP 36.6; O2SAT 95
--- NOTE | 2023-01-25 15:26 | HO.PSYCHPN ---
Subjective Subjective Date of Service: 01/25/23 Reason For Visit: Psychosis Interim History: sleeping late morning, easily roused. malodorous, disheveled. [place], states no change in her mood or psychotic Sx. agreeable to increase VPA to 2500, a dose more likely to achieve a therapeutic level. per staff, c/o anx/dep, racing thoughts, CAH to self-harm, denigrating AH. eating/sleeping well. anx/dep 02/26. Mental Status Exam Mental Status Exam Narrative: Appearance: wearing hospital gown, appears tired, disheveled, poorly groomed Behavior: minimally cooperative Psychomotor: no agitation or retardation noted TP: linear TC: no delusions or paranoia expressed Mood: tired. Affect: flat, hypo-intense, non-labile SI: none expressed HI: none expressed AH: reports hearing voices VH: none expressed Insight/judgment: fair x 2. Diagnostics Vital Signs (24Hr): Vital Signs - 24 hr 01/24/23 20:30 01/25/23 09:00 Temperature 98.1 F 97.9 F Pulse Rate 94 87 Respiratory Rate 16 18 Blood Pressure 108/60 100/59 L Pulse Oximetry 97 95 Oxygen Delivery Method Room Air Room Air BMI result Body Mass Index 45.1 Labs 01/22/23 12:41 01/23/23 09:59 Labs: Laboratory Results - last 48 hr 01/23/23 01/24/23 01/25/23 20:26 10:37 08:29 POC Glucose 221 H 170 H 139 H Medications Medications Current Medications Acetaminophen (Acetaminophen 325 Mg Tablet) 650 mg PO Q6H PRN PRN Reason: Headache/Pain Mild Scale (1-3) Al Hydroxide/Mg Hydroxide (Magnesium Hydrox/Alum Hydrox 30 Ml Oral.Susp) 30 ml PO Q6H PRN PRN Reason: Heartburn/Nausea Ascorbic Acid (Ascorbic Acid 500 Mg Tablet) 500 mg PO DAILY [facility] Last Admin: 01/25/23 08:55 Dose: 500 mg Clozapine (Clozapine 25 Mg Tablet) 25 mg PO DAILY [facility] Last Admin: 01/25/23 08:55 Dose: 25 mg Clozapine (Clozapine 100 Mg Tablet) 100 mg PO DAILY [facility] Last Admin: 01/25/23 08:55 Dose: 100 mg Clozapine (Clozapine 100 Mg Tablet) 300 mg PO BEDTIME [facility] Last Admin: 01/24/23 20:55 Dose: 300 mg Divalproex Sodium (Divalproex Sodium Er 500 Mg Tab.Er.24h) 2,500 mg PO BEDTIME [facility] Docusate Sodium (Docusate Sodium 100 Mg Capsule) 100 mg PO BID PRN PRN Reason: Constipation Ferrous Sulfate (Ferrous Sulfate 324 Mg Tablet.) 324 mg PO DAILY [facility] Last Admin: 01/25/23 08:56 Dose: 324 mg Hydroxyzine HCl (Hydroxyzine Hcl 25 Mg Tablet) 25 mg PO Q6H PRN PRN Reason: Anxiety Insulin Glargine (Insulin Glargine,Hum.Rec.Anlog 100 Unit/Ml 10 Ml Vial) 70 unit SUBCUT BEDTIME [facility] Last Admin: 01/24/23 20:53 Dose: 70 unit Lisinopril (Lisinopril 10 Mg Tablet) 10 mg PO DAILY [facility]; Protocol Last Admin: 01/25/23 08:55 Dose: 10 mg Magnesium Hydroxide (Milk Of Magnesia 30 Ml Oral.Susp) 30 ml PO DAILY PRN PRN Reason: Constipation Metformin HCl (Metformin Hcl Er 500 Mg Tab.Er.24h) 1,000 mg PO BID [facility] Last Admin: 01/25/23 08:55 Dose: 1,000 mg Metoprolol Tartrate (Metoprolol Tartrate 25 Mg Tablet) 25 mg PO BID [facility]; Protocol Last Admin: 01/25/23 08:55 Dose: 25 mg Nicotine Polacrilex (Nicotine Polacrilex 2 Mg Gum) 4 mg BUCCAL Q2H PRN PRN Reason: Nicotine Cravings Non-Formulary Medication (Dulaglutide [Trulicity]) 0.5 ml SUBCUT WE@0900 [facility] Omeprazole (Omeprazole 20 Mg Capsule.) 20 mg PO DAILY@0630 [facility] Last Admin: 01/25/23 06:28 Dose: 20 mg Perphenazine (Perphenazine 4 Mg Tablet) 4 mg PO BID [facility] Last Admin: 01/25/23 08:55 Dose: 4 mg Senna/Docusate Sodium (Sennosides/Docusate Sodium Tablet) 1 tab PO DAILY [facility] Last Admin: 01/25/23 08:55 Dose: 1 tab Sertraline HCl (Sertraline Hcl 50 Mg Tablet) 50 mg PO DAILY [facility] Last Admin: 01/25/23 08:55 Dose: 50 mg Trazodone HCl (Trazodone Hcl 50 Mg Tablet) 50 mg PO BEDTIME MRX1 PRN PRN Reason: Insomnia Allergies Allergies Allergy/AdvReac Type Severity Reaction Status Date / Time Sulfa (Sulfonamide Allergy Intermediate PUFFY EYES Verified 04/22/22 06:14 Antibiotics) [SULFA (SULFONAMIDE ANTIBIOTICS)] Penicillins [PENICILLINS] Allergy Mild PT STATES Verified 04/22/22 06:14 NOTHING HAPPENS, ALLG LISTED ON TRANF SHEET Assessment & Plan Assessment & Plan (1) Schizophrenia: Qualifiers: Schizophrenia type: paranoid schizophrenia Qualified Code(s): F20.0 - Paranoid schizophrenia Status: Acute Code(s): F20.9 - Schizophrenia, unspecified Plan 01/23: increase VPA from 1000 mg QHS to 2000 mg QHS as of tonight. otherwise continue current mgmt. 01/24: appears unchanged from yesterday. malodorous, very poor hygiene, unkempt and disheveled. continue current mgmt. plan to increase VPA to 2500 mg in a day or two, as that is more likely to be a therapeutic dose. 01/25: increase VPA to 2500 mg QHS as of tonight. check level in 5 days. observe for resolution of mood and psychotic Sx. T/C increase clozapine dosing if mood stabilizer at therapeutic serum level is not effective. Reason for continued inpatient stay Substantial Risk for: inability to function and rapid decompensation Time Spent With Patient Time: Total time managing care of this patient today ____ minutes.
[2023-01-25 19:55] VITALS: BP 120/66; PULSE 96; RESP 18; TEMP 36.8; O2SAT 98
[2023-01-25 21:14] LABS: Glucose, Whole Blood 290 mg/dL (60-115)
[2023-01-25] MEDS: cloZAPine 100 MG TABLET 300 MG PO (21:55)
[2023-01-25] MEDS: Insulin Glargine,Hum.rec.anlog 100 UNIT/ML 10 ML VIAL 70 UNIT SUBCUT (21:55)
[2023-01-25] MEDS: Divalproex Sodium ER 500 MG TAB.ER.24H 2500 MG PO (21:56)
[2023-01-26] MEDS: Omeprazole 20 MG CAPSULE.DR PO (06:34)
[2023-01-26 08:36] LABS: Glucose, Whole Blood 109 mg/dL (60-115)
[2023-01-26] MEDS: Metoprolol Tartrate 25 MG TABLET PO ×2 (09:16→21:39)
[2023-01-26] MEDS: Perphenazine 4 MG TABLET PO ×2 (09:16→21:39)
[2023-01-26] MEDS: cloZAPine 100 MG TABLET PO (09:16)
[2023-01-26] MEDS: lisinopriL 10 MG TABLET PO (09:16)
[2023-01-26] MEDS: metFORMIN HCl ER 500 MG TAB.ER.24H 1000 MG PO ×2 (09:16→21:41)
[2023-01-26] MEDS: Ferrous Sulfate 324 MG TABLET.DR PO (09:16)
[2023-01-26] MEDS: Ascorbic Acid 500 MG TABLET PO (09:17)
[2023-01-26] MEDS: Sennosides/Docusate Sodium TABLET 1 TAB PO (09:17)
[2023-01-26] MEDS: Sertraline HCL 50 MG TABLET PO (09:17)
[2023-01-26] MEDS: cloZAPine 25 MG TABLET PO (09:17)
[2023-01-26 09:20] VITALS: BP 104/68; PULSE 76; RESP 16; TEMP 36.2; O2SAT 95
--- NOTE | 2023-01-26 16:36 | HO.PSYCHPN ---
Subjective Subjective Date of Service: 01/26/23 Reason For Visit: Psychosis Subjective Notes: Conditional Voluntary Medical Problems Affecting Mental Status: No Interim History: met with patient. Discussed with Nursing. Overall limited participation and self-care. Will cancel repeat drug screen as over 5 days. With television writer reported she was doing okay and less intense hallucinations. Review of Systems Review of Systems Unremarkable Mental Status Exam Mental Status Exam Narrative: in bed. Pleasant. Self-care limited. Flat affect. Organized speech. No SI. No HI. Hallucinations that are negative in nature. No delusions. Feeling safe. Diagnostics Vital Signs (24Hr): Vital Signs - 24 hr 01/25/23 19:55 01/26/23 09:20 Temperature 98.2 F 97.2 F Pulse Rate 96 76 Respiratory Rate 18 16 Blood Pressure 120/66 104/68 Pulse Oximetry 98 95 Oxygen Delivery Method Room Air Room Air BMI result Body Mass Index 45.1 Labs 01/22/23 12:41 01/23/23 09:59 Labs: Laboratory Results - last 48 hr 01/25/23 01/25/23 01/26/23 08:29 21:09 08:27 POC Glucose 139 H 290 H 109 Medications Medications Current Medications Acetaminophen (Acetaminophen 325 Mg Tablet) 650 mg PO Q6H PRN PRN Reason: Headache/Pain Mild Scale (1-3) Al Hydroxide/Mg Hydroxide (Magnesium Hydrox/Alum Hydrox 30 Ml Oral.Susp) 30 ml PO Q6H PRN PRN Reason: Heartburn/Nausea Ascorbic Acid (Ascorbic Acid 500 Mg Tablet) 500 mg PO DAILY [facility] Last Admin: 01/26/23 09:17 Dose: 500 mg Clozapine (Clozapine 25 Mg Tablet) 25 mg PO DAILY [facility] Last Admin: 01/26/23 09:17 Dose: 25 mg Clozapine (Clozapine 100 Mg Tablet) 100 mg PO DAILY [facility] Last Admin: 01/26/23 09:16 Dose: 100 mg Clozapine (Clozapine 100 Mg Tablet) 300 mg PO BEDTIME [facility] Last Admin: 01/25/23 21:55 Dose: 300 mg Divalproex Sodium (Divalproex Sodium Er 500 Mg Tab.Er.24h) 2,500 mg PO BEDTIME [facility] Last Admin: 01/25/23 21:56 Dose: 2,500 mg Docusate Sodium (Docusate Sodium 100 Mg Capsule) 100 mg PO BID PRN PRN Reason: Constipation Ferrous Sulfate (Ferrous Sulfate 324 Mg Tablet.) 324 mg PO DAILY [facility] Last Admin: 01/26/23 09:16 Dose: 324 mg Hydroxyzine HCl (Hydroxyzine Hcl 25 Mg Tablet) 25 mg PO Q6H PRN PRN Reason: Anxiety Insulin Glargine (Insulin Glargine,Hum.Rec.Anlog 100 Unit/Ml 10 Ml Vial) 70 unit SUBCUT BEDTIME [facility] Last Admin: 01/25/23 21:55 Dose: 70 unit Lisinopril (Lisinopril 10 Mg Tablet) 10 mg PO DAILY [facility]; Protocol Last Admin: 01/26/23 09:16 Dose: 10 mg Magnesium Hydroxide (Milk Of Magnesia 30 Ml Oral.Susp) 30 ml PO DAILY PRN PRN Reason: Constipation Metformin HCl (Metformin Hcl Er 500 Mg Tab.Er.24h) 1,000 mg PO BID [facility] Last Admin: 01/26/23 09:16 Dose: 1,000 mg Metoprolol Tartrate (Metoprolol Tartrate 25 Mg Tablet) 25 mg PO BID [facility]; Protocol Last Admin: 01/26/23 09:16 Dose: 25 mg Nicotine Polacrilex (Nicotine Polacrilex 2 Mg Gum) 4 mg BUCCAL Q2H PRN PRN Reason: Nicotine Cravings Non-Formulary Medication (Dulaglutide [Trulicity]) 0.5 ml SUBCUT WE@0900 [facility] Omeprazole (Omeprazole 20 Mg Capsule.) 20 mg PO DAILY@0630 [facility] Last Admin: 01/26/23 06:34 Dose: 20 mg Perphenazine (Perphenazine 4 Mg Tablet) 4 mg PO BID [facility] Last Admin: 01/26/23 09:16 Dose: 4 mg Senna/Docusate Sodium (Sennosides/Docusate Sodium Tablet) 1 tab PO DAILY [facility] Last Admin: 01/26/23 09:17 Dose: 1 tab Sertraline HCl (Sertraline Hcl 50 Mg Tablet) 50 mg PO DAILY [facility] Last Admin: 01/26/23 09:17 Dose: 50 mg Trazodone HCl (Trazodone Hcl 50 Mg Tablet) 50 mg PO BEDTIME MRX1 PRN PRN Reason: Insomnia Allergies Allergies Allergy/AdvReac Type Severity Reaction Status Date / Time Sulfa (Sulfonamide Allergy Intermediate PUFFY EYES Verified 04/22/22 06:14 Antibiotics) [SULFA (SULFONAMIDE ANTIBIOTICS)] Penicillins [PENICILLINS] Allergy Mild PT STATES Verified 04/22/22 06:14 NOTHING HAPPENS, ALLG LISTED ON TRANF SHEET Assessment & Plan Assessment & Plan (1) Schizophrenia: Qualifiers: Schizophrenia type: paranoid schizophrenia Qualified Code(s): F20.0 - Paranoid schizophrenia Status: Acute Code(s): F20.9 - Schizophrenia, unspecified Plan 01/23: increase VPA from 1000 mg QHS to 2000 mg QHS as of tonight. otherwise continue current mgmt. 01/24: appears unchanged from yesterday. malodorous, very poor hygiene, unkempt and disheveled. continue current mgmt. plan to increase VPA to 2500 mg in a day or two, as that is more likely to be a therapeutic dose. 01/25: increase VPA to 2500 mg QHS as of tonight. check level in 5 days. observe for resolution of mood and psychotic Sx. T/C increase clozapine dosing if mood stabilizer at therapeutic serum level is not effective. 01/26/2023: No changes to current plan Reason for continued inpatient stay Substantial Risk for: inability to function and rapid decompensation Time Spent With Patient Time: Total time managing care of this patient today ____ minutes.
[2023-01-26 20:05] VITALS: BP 110/60; PULSE 88; RESP 18; TEMP 36.3; O2SAT 98
[2023-01-26 20:41] LABS: Glucose, Whole Blood 205 mg/dL (60-115)
[2023-01-26] MEDS: Insulin Glargine,Hum.rec.anlog 100 UNIT/ML 10 ML VIAL 70 UNIT SUBCUT (21:37)
[2023-01-26] MEDS: Divalproex Sodium ER 500 MG TAB.ER.24H 2500 MG PO (21:38)
[2023-01-26] MEDS: cloZAPine 100 MG TABLET 300 MG PO (21:39)
[2023-01-27] MEDS: Omeprazole 20 MG CAPSULE.DR PO (06:39)
[2023-01-27 08:26] LABS: Glucose, Whole Blood 147 mg/dL (60-115)
[2023-01-27 08:34] VITALS: BP 131/75; PULSE 96; RESP 18; TEMP 36; O2SAT 99
[2023-01-27] MEDS: metFORMIN HCl ER 500 MG TAB.ER.24H 1000 MG PO ×2 (08:36→21:50)
[2023-01-27] MEDS: Perphenazine 4 MG TABLET PO ×2 (08:36→21:50)
[2023-01-27] MEDS: Metoprolol Tartrate 25 MG TABLET PO ×2 (08:36→21:51)
[2023-01-27] MEDS: lisinopriL 10 MG TABLET PO (08:36)
[2023-01-27] MEDS: Sennosides/Docusate Sodium TABLET 1 TAB PO (08:36)
[2023-01-27] MEDS: Sertraline HCL 50 MG TABLET PO (08:36)
[2023-01-27] MEDS: cloZAPine 100 MG TABLET PO (08:36)
[2023-01-27] MEDS: Ferrous Sulfate 324 MG TABLET.DR PO (08:36)
[2023-01-27] MEDS: Ascorbic Acid 500 MG TABLET PO (08:36)
[2023-01-27] MEDS: cloZAPine 25 MG TABLET PO (08:39)
--- NOTE | 2023-01-27 16:35 | P.PNPSI_ITS ---
Subjective Subjective Date of Service: 01/27/23 Reason For Visit: Psychosis Interim History: Ongoing isolation and limited self care and participation. With health technical writer reported she was doing okay and less intense hallucinations. Reporting feeling safe in her room and less so outside of it. Medication Compliance: Yes Side effects from medications: No Attending Groups: No Review of Systems Acute medical concerns: No Review of Systems Review of Systems Unremarkable Mental Status Exam Mental Status Exam Narrative: in bed. Pleasant. Self-care limited. Flat affect. Organized speech. No SI. No HI. Hallucinations that are negative in nature. No delusions. Feeling safe. Diagnostics Vital Signs (24Hr): Vital Signs - 24 hr 01/26/23 20:05 01/27/23 08:34 Temperature 97.4 F 96.8 F Pulse Rate 88 96 Respiratory Rate 18 18 Blood Pressure 110/60 131/75 Pulse Oximetry 98 99 Oxygen Delivery Method Room Air Room Air BMI result Body Mass Index 45.1 Labs 01/22/23 12:41 01/23/23 09:59 Labs: Laboratory Results - last 48 hr 01/25/23 01/26/23 01/26/23 21:09 08:27 20:31 POC Glucose 290 H 109 205 H 01/27/23 08:08 POC Glucose 147 H Medications Medications Current Medications Acetaminophen (Acetaminophen 325 Mg Tablet) 650 mg PO Q6H PRN PRN Reason: Headache/Pain Mild Scale (1-3) Al Hydroxide/Mg Hydroxide (Magnesium Hydrox/Alum Hydrox 30 Ml Oral.Susp) 30 ml PO Q6H PRN PRN Reason: Heartburn/Nausea Ascorbic Acid (Ascorbic Acid 500 Mg Tablet) 500 mg PO DAILY [facility] Last Admin: 01/27/23 08:36 Dose: 500 mg Clozapine (Clozapine 25 Mg Tablet) 25 mg PO DAILY [facility] Last Admin: 01/27/23 08:39 Dose: 25 mg Clozapine (Clozapine 100 Mg Tablet) 100 mg PO DAILY [facility] Last Admin: 01/27/23 08:36 Dose: 100 mg Clozapine (Clozapine 100 Mg Tablet) 300 mg PO BEDTIME [facility] Last Admin: 01/26/23 21:39 Dose: 300 mg Divalproex Sodium (Divalproex Sodium Er 500 Mg Tab.Er.24h) 2,500 mg PO BEDTIME [facility] Last Admin: 01/26/23 21:38 Dose: 2,500 mg Docusate Sodium (Docusate Sodium 100 Mg Capsule) 100 mg PO BID PRN PRN Reason: Constipation Ferrous Sulfate (Ferrous Sulfate 324 Mg Tablet.) 324 mg PO DAILY [facility] Last Admin: 01/27/23 08:36 Dose: 324 mg Hydroxyzine HCl (Hydroxyzine Hcl 25 Mg Tablet) 25 mg PO Q6H PRN PRN Reason: Anxiety Insulin Glargine (Insulin Glargine,Hum.Rec.Anlog 100 Unit/Ml 10 Ml Vial) 70 unit SUBCUT BEDTIME [facility] Last Admin: 01/26/23 21:37 Dose: 70 unit Lisinopril (Lisinopril 10 Mg Tablet) 10 mg PO DAILY [facility]; Protocol Last Admin: 01/27/23 08:36 Dose: 10 mg Magnesium Hydroxide (Milk Of Magnesia 30 Ml Oral.Susp) 30 ml PO DAILY PRN PRN Reason: Constipation Metformin HCl (Metformin Hcl Er 500 Mg Tab.Er.24h) 1,000 mg PO BID [facility] Last Admin: 01/27/23 08:36 Dose: 1,000 mg Metoprolol Tartrate (Metoprolol Tartrate 25 Mg Tablet) 25 mg PO BID [facility]; Protocol Last Admin: 01/27/23 08:36 Dose: 25 mg Nicotine Polacrilex (Nicotine Polacrilex 2 Mg Gum) 4 mg BUCCAL Q2H PRN PRN Reason: Nicotine Cravings Non-Formulary Medication (Dulaglutide [Trulicity]) 0.5 ml SUBCUT WE@0900 [facility] Omeprazole (Omeprazole 20 Mg Capsule.) 20 mg PO DAILY@0630 [facility] Last Admin: 01/27/23 06:39 Dose: 20 mg Perphenazine (Perphenazine 4 Mg Tablet) 4 mg PO BID [facility] Last Admin: 01/27/23 08:36 Dose: 4 mg Senna/Docusate Sodium (Sennosides/Docusate Sodium Tablet) 1 tab PO DAILY [facility] Last Admin: 01/27/23 08:36 Dose: 1 tab Sertraline HCl (Sertraline Hcl 50 Mg Tablet) 50 mg PO DAILY [facility] Last Admin: 01/27/23 08:36 Dose: 50 mg Trazodone HCl (Trazodone Hcl 50 Mg Tablet) 50 mg PO BEDTIME MRX1 PRN PRN Reason: Insomnia Allergies Allergies Allergy/AdvReac Type Severity Reaction Status Date / Time Sulfa (Sulfonamide Allergy Intermediate PUFFY EYES Verified 04/22/22 06:14 Antibiotics) [SULFA (SULFONAMIDE ANTIBIOTICS)] Penicillins [PENICILLINS] Allergy Mild PT STATES Verified 04/22/22 06:14 NOTHING HAPPENS, ALLG LISTED ON TRANF SHEET Assessment & Plan Assessment & Plan (1) Schizophrenia: Qualifiers: Schizophrenia type: paranoid schizophrenia Qualified Code(s): F20.0 - Paranoid schizophrenia Status: Acute Code(s): F20.9 - Schizophrenia, unspecified Plan 01/23: increase VPA from 1000 mg QHS to 2000 mg QHS as of tonight. otherwise continue current mgmt. 01/24: appears unchanged from yesterday. malodorous, very poor hygiene, unkempt and disheveled. continue current mgmt. plan to increase VPA to 2500 mg in a day or two, as that is more likely to be a therapeutic dose. 01/25: increase VPA to 2500 mg QHS as of tonight. check level in 5 days. observe for resolution of mood and psychotic Sx. T/C increase clozapine dosing if mood stabilizer at therapeutic serum level is not effective. 01/26/2023: No changes to current plan 01/27: no changes Reason for continued inpatient stay Substantial Risk for: inability to function Time Spent With Patient Time: Total time managing care of this patient today ____ minutes.
[2023-01-27 20:35] VITALS: BP 118/53; PULSE 93; RESP 18; TEMP 36.6; O2SAT 97
[2023-01-27] MEDS: Insulin Glargine,Hum.rec.anlog 100 UNIT/ML 10 ML VIAL 70 UNIT SUBCUT (21:47)
[2023-01-27] MEDS: cloZAPine 100 MG TABLET 300 MG PO (21:49)
[2023-01-27] MEDS: Divalproex Sodium ER 500 MG TAB.ER.24H 2500 MG PO (21:50)
[2023-01-27 22:45] LABS: Glucose, Whole Blood 235 mg/dL (60-115)
--- NOTE | 2023-01-27 23:53 | PC.NURSE ---
Yuni is noted to be isolating in her room for most of the evening. she c/o feeling really tired she is pleasant and cooperative her HE POC is noted to be 235, no sliding scale insulin. she c/o continued auditory hallucinations that say mean things to her she denies all other psych symptoms, continue to monitor for safety, encourage groups and socialization with peers
[2023-01-28] MEDS: Omeprazole 20 MG CAPSULE.DR PO (06:18)
[2023-01-28 08:00] VITALS: BP 111/61; PULSE 100; RESP 18; TEMP 36.1; O2SAT 99
[2023-01-28] MEDS: cloZAPine 25 MG TABLET PO (08:51)
[2023-01-28] MEDS: Sertraline HCL 50 MG TABLET PO (08:51)
[2023-01-28] MEDS: Ferrous Sulfate 324 MG TABLET.DR PO (08:51)
[2023-01-28] MEDS: Perphenazine 4 MG TABLET PO ×2 (08:52→21:43)
[2023-01-28] MEDS: lisinopriL 10 MG TABLET PO (08:52)
[2023-01-28] MEDS: Metoprolol Tartrate 25 MG TABLET PO ×2 (08:52→21:43)
[2023-01-28] MEDS: Ascorbic Acid 500 MG TABLET PO (08:52)
[2023-01-28] MEDS: metFORMIN HCl ER 500 MG TAB.ER.24H 1000 MG PO ×2 (08:52→21:42)
[2023-01-28] MEDS: cloZAPine 100 MG TABLET PO (08:53)
[2023-01-28] MEDS: Sennosides/Docusate Sodium TABLET 1 TAB PO (08:53)
[2023-01-28 10:24] LABS: Glucose, Whole Blood 209 mg/dL (60-115)
--- NOTE | 2023-01-28 15:00 | HO.PSYCHPN ---
Subjective Subjective Date of Service: 01/28/23 Reason For Visit: Psychosis Interim History: calm, cooperative. resting in bed, not in distress. reports she is feeling raymundo and emotional, however. AH are still there. she feels safe, nevertheless. agrees to continue current regimen with plan to check VPA level wed. per staff, sleepnig OK. no CAH but AH terrible over w/e. watched TV. anx/dep 02/26 w/e. isolative. overly bright on approach. Mental Status Exam Mental Status Exam Narrative: Appearance: wearing hospital gown, appears tired, disheveled, poorly groomed Behavior: cooperative Psychomotor: no agitation or retardation noted TP: linear TC: no delusions or paranoia expressed Mood: raymundo and emotional Affect: hypo-intense, non-labile SI: none expressed HI: none expressed AH: reports hearing voices VH: none expressed Insight/judgment: fair x 2. Diagnostics Vital Signs (24Hr): Vital Signs - 24 hr 01/27/23 20:35 01/28/23 08:00 Temperature 97.8 F 97.0 F Pulse Rate 93 100 Respiratory Rate 18 18 Blood Pressure 118/53 L 111/61 Pulse Oximetry 97 99 Oxygen Delivery Method Room Air Room Air BMI result Body Mass Index 45.1 Labs 01/22/23 12:41 01/23/23 09:59 Labs: Laboratory Results - last 48 hr 01/26/23 01/27/23 01/27/23 20:31 08:08 22:39 POC Glucose 205 H 147 H 235 H 01/28/23 10:17 POC Glucose 209 H Medications Medications Current Medications Acetaminophen (Acetaminophen 325 Mg Tablet) 650 mg PO Q6H PRN PRN Reason: Headache/Pain Mild Scale (1-3) Al Hydroxide/Mg Hydroxide (Magnesium Hydrox/Alum Hydrox 30 Ml Oral.Susp) 30 ml PO Q6H PRN PRN Reason: Heartburn/Nausea Ascorbic Acid (Ascorbic Acid 500 Mg Tablet) 500 mg PO DAILY [facility] Last Admin: 01/28/23 08:52 Dose: 500 mg Clozapine (Clozapine 25 Mg Tablet) 25 mg PO DAILY [facility] Last Admin: 01/28/23 08:51 Dose: 25 mg Clozapine (Clozapine 100 Mg Tablet) 100 mg PO DAILY [facility] Last Admin: 01/28/23 08:53 Dose: 100 mg Clozapine (Clozapine 100 Mg Tablet) 300 mg PO BEDTIME [facility] Last Admin: 01/27/23 21:49 Dose: 300 mg Divalproex Sodium (Divalproex Sodium Er 500 Mg Tab.Er.24h) 2,500 mg PO BEDTIME [facility] Last Admin: 01/27/23 21:50 Dose: 2,500 mg Docusate Sodium (Docusate Sodium 100 Mg Capsule) 100 mg PO BID PRN PRN Reason: Constipation Ferrous Sulfate (Ferrous Sulfate 324 Mg Tablet.) 324 mg PO DAILY [facility] Last Admin: 01/28/23 08:51 Dose: 324 mg Hydroxyzine HCl (Hydroxyzine Hcl 25 Mg Tablet) 25 mg PO Q6H PRN PRN Reason: Anxiety Insulin Glargine (Insulin Glargine,Hum.Rec.Anlog 100 Unit/Ml 10 Ml Vial) 70 unit SUBCUT BEDTIME [facility] Last Admin: 01/27/23 21:47 Dose: 70 unit Lisinopril (Lisinopril 10 Mg Tablet) 10 mg PO DAILY [facility]; Protocol Last Admin: 01/28/23 08:52 Dose: 10 mg Magnesium Hydroxide (Milk Of Magnesia 30 Ml Oral.Susp) 30 ml PO DAILY PRN PRN Reason: Constipation Metformin HCl (Metformin Hcl Er 500 Mg Tab.Er.24h) 1,000 mg PO BID [facility] Last Admin: 01/28/23 08:52 Dose: 1,000 mg Metoprolol Tartrate (Metoprolol Tartrate 25 Mg Tablet) 25 mg PO BID [facility]; Protocol Last Admin: 01/28/23 08:52 Dose: 25 mg Nicotine Polacrilex (Nicotine Polacrilex 2 Mg Gum) 4 mg BUCCAL Q2H PRN PRN Reason: Nicotine Cravings Non-Formulary Medication (Dulaglutide [Trulicity]) 0.5 ml SUBCUT WE@0900 [facility] Omeprazole (Omeprazole 20 Mg Capsule.) 20 mg PO DAILY@0630 [facility] Last Admin: 01/28/23 06:18 Dose: 20 mg Perphenazine (Perphenazine 4 Mg Tablet) 4 mg PO BID [facility] Last Admin: 01/28/23 08:52 Dose: 4 mg Senna/Docusate Sodium (Sennosides/Docusate Sodium Tablet) 1 tab PO DAILY [facility] Last Admin: 01/28/23 08:53 Dose: 1 tab Sertraline HCl (Sertraline Hcl 50 Mg Tablet) 50 mg PO DAILY [facility] Last Admin: 01/28/23 08:51 Dose: 50 mg Trazodone HCl (Trazodone Hcl 50 Mg Tablet) 50 mg PO BEDTIME MRX1 PRN PRN Reason: Insomnia Allergies Allergies Allergy/AdvReac Type Severity Reaction Status Date / Time Sulfa (Sulfonamide Allergy Intermediate PUFFY EYES Verified 04/22/22 06:14 Antibiotics) [SULFA (SULFONAMIDE ANTIBIOTICS)] Penicillins [PENICILLINS] Allergy Mild PT STATES Verified 04/22/22 06:14 NOTHING HAPPENS, ALLG LISTED ON TRANF SHEET Assessment & Plan Assessment & Plan (1) Schizophrenia: Qualifiers: Schizophrenia type: paranoid schizophrenia Qualified Code(s): F20.0 - Paranoid schizophrenia Status: Acute Code(s): F20.9 - Schizophrenia, unspecified Plan 01/23: increase VPA from 1000 mg QHS to 2000 mg QHS as of tonight. otherwise continue current mgmt. 01/24: appears unchanged from yesterday. malodorous, very poor hygiene, unkempt and disheveled. continue current mgmt. plan to increase VPA to 2500 mg in a day or two, as that is more likely to be a therapeutic dose. 01/25: increase VPA to 2500 mg QHS as of tonight. check level in 5 days. observe for resolution of mood and psychotic Sx. T/C increase clozapine dosing if mood stabilizer at therapeutic serum level is not effective. 01/26/2023: No changes to current plan 01/27: no changes 01/28: continue current mgmt. seems to have improved somewhat from admission. check labs . Reason for continued inpatient stay Substantial Risk for: harm to self, inability to function and rapid decompensation Time Spent With Patient Time: Total time managing care of this patient today ____ minutes.
[2023-01-28 20:44] LABS: Glucose, Whole Blood 262 mg/dL (60-115)
[2023-01-28 20:45] VITALS: BP 116/57; PULSE 106; RESP 18; TEMP 36.6; O2SAT 99
[2023-01-28] MEDS: Insulin Glargine,Hum.rec.anlog 100 UNIT/ML 10 ML VIAL 70 UNIT SUBCUT (21:40)
[2023-01-28] MEDS: Divalproex Sodium ER 500 MG TAB.ER.24H 2500 MG PO (21:42)
[2023-01-28] MEDS: cloZAPine 100 MG TABLET 300 MG PO (21:43)
[2023-01-29] MEDS: Omeprazole 20 MG CAPSULE.DR PO (06:49)
[2023-01-29 08:00] VITALS: BP 133/61; PULSE 102; RESP 18; TEMP 36.8; O2SAT 98
[2023-01-29 08:40] LABS: Glucose, Whole Blood 120 mg/dL (60-115)
[2023-01-29] MEDS: Sertraline HCL 50 MG TABLET PO (08:57)
[2023-01-29] MEDS: lisinopriL 10 MG TABLET PO (08:57)
[2023-01-29] MEDS: Ferrous Sulfate 324 MG TABLET.DR PO (08:57)
[2023-01-29] MEDS: cloZAPine 25 MG TABLET PO (08:58)
[2023-01-29] MEDS: Perphenazine 4 MG TABLET PO ×2 (08:58→21:14)
[2023-01-29] MEDS: Ascorbic Acid 500 MG TABLET PO (08:58)
[2023-01-29] MEDS: Metoprolol Tartrate 25 MG TABLET PO ×2 (08:58→21:13)
[2023-01-29] MEDS: cloZAPine 100 MG TABLET PO (08:58)
[2023-01-29] MEDS: Sennosides/Docusate Sodium TABLET 1 TAB PO (08:59)
[2023-01-29] MEDS: metFORMIN HCl ER 500 MG TAB.ER.24H 1000 MG PO ×2 (08:59→21:13)
--- NOTE | 2023-01-29 15:32 | HO.PSYCHPN ---
Subjective Subjective Date of Service: 01/29/23 Reason For Visit: Psychosis Interim History: in bed, easily rousable. acknowledges improvement from admission, more calm and more settled mood. no questions or complaints, content to continue present regimen. per staff, tired, wants to sleep. not attending groups. visible at dinner. somewhat social. sleeping a lot, days and nights. Mental Status Exam Mental Status Exam Narrative: Appearance: wearing hospital gown, adequately groomed Behavior: cooperative Psychomotor: no agitation or retardation noted TP: linear TC: no delusions or paranoia expressed Mood: improved Affect: normo-intense, non-labile SI: none expressed HI: none expressed AH: reports hearing voices VH: none expressed Insight/judgment: fair x 2. Diagnostics Vital Signs (24Hr): Vital Signs - 24 hr 01/28/23 20:45 01/29/23 08:00 Temperature 97.9 F 98.2 F Pulse Rate 106 H 102 H Respiratory Rate 18 18 Blood Pressure 116/57 L 133/61 Pulse Oximetry 99 98 Oxygen Delivery Method Room Air Room Air BMI result Body Mass Index 45.1 Labs 01/22/23 12:41 01/23/23 09:59 Labs: Laboratory Results - last 48 hr 01/27/23 01/28/23 01/28/23 22:39 10:17 20:27 POC Glucose 235 H 209 H 262 H 01/29/23 08:36 POC Glucose 120 H Medications Medications Current Medications Acetaminophen (Acetaminophen 325 Mg Tablet) 650 mg PO Q6H PRN PRN Reason: Headache/Pain Mild Scale (1-3) Al Hydroxide/Mg Hydroxide (Magnesium Hydrox/Alum Hydrox 30 Ml Oral.Susp) 30 ml PO Q6H PRN PRN Reason: Heartburn/Nausea Ascorbic Acid (Ascorbic Acid 500 Mg Tablet) 500 mg PO DAILY [facility] Last Admin: 01/29/23 08:58 Dose: 500 mg Clozapine (Clozapine 25 Mg Tablet) 25 mg PO DAILY [facility] Last Admin: 01/29/23 08:58 Dose: 25 mg Clozapine (Clozapine 100 Mg Tablet) 100 mg PO DAILY [facility] Last Admin: 01/29/23 08:58 Dose: 100 mg Clozapine (Clozapine 100 Mg Tablet) 300 mg PO BEDTIME [facility] Last Admin: 01/28/23 21:43 Dose: 300 mg Divalproex Sodium (Divalproex Sodium Er 500 Mg Tab.Er.24h) 2,500 mg PO BEDTIME [facility] Last Admin: 01/28/23 21:42 Dose: 2,500 mg Docusate Sodium (Docusate Sodium 100 Mg Capsule) 100 mg PO BID PRN PRN Reason: Constipation Ferrous Sulfate (Ferrous Sulfate 324 Mg Tablet.) 324 mg PO DAILY [facility] Last Admin: 01/29/23 08:57 Dose: 324 mg Hydroxyzine HCl (Hydroxyzine Hcl 25 Mg Tablet) 25 mg PO Q6H PRN PRN Reason: Anxiety Insulin Glargine (Insulin Glargine,Hum.Rec.Anlog 100 Unit/Ml 10 Ml Vial) 70 unit SUBCUT BEDTIME [facility] Last Admin: 01/28/23 21:40 Dose: 70 unit Lisinopril (Lisinopril 10 Mg Tablet) 10 mg PO DAILY [facility]; Protocol Last Admin: 01/29/23 08:57 Dose: 10 mg Magnesium Hydroxide (Milk Of Magnesia 30 Ml Oral.Susp) 30 ml PO DAILY PRN PRN Reason: Constipation Metformin HCl (Metformin Hcl Er 500 Mg Tab.Er.24h) 1,000 mg PO BID [facility] Last Admin: 01/29/23 08:59 Dose: 1,000 mg Metoprolol Tartrate (Metoprolol Tartrate 25 Mg Tablet) 25 mg PO BID [facility]; Protocol Last Admin: 01/29/23 08:58 Dose: 25 mg Nicotine Polacrilex (Nicotine Polacrilex 2 Mg Gum) 4 mg BUCCAL Q2H PRN PRN Reason: Nicotine Cravings Non-Formulary Medication (Dulaglutide [Trulicity]) 0.5 ml SUBCUT WE@0900 [facility] Omeprazole (Omeprazole 20 Mg Capsule.) 20 mg PO DAILY@0630 [facility] Last Admin: 01/29/23 06:49 Dose: 20 mg Perphenazine (Perphenazine 4 Mg Tablet) 4 mg PO BID [facility] Last Admin: 01/29/23 08:58 Dose: 4 mg Senna/Docusate Sodium (Sennosides/Docusate Sodium Tablet) 1 tab PO DAILY [facility] Last Admin: 01/29/23 08:59 Dose: 1 tab Sertraline HCl (Sertraline Hcl 50 Mg Tablet) 50 mg PO DAILY [facility] Last Admin: 01/29/23 08:57 Dose: 50 mg Trazodone HCl (Trazodone Hcl 50 Mg Tablet) 50 mg PO BEDTIME MRX1 PRN PRN Reason: Insomnia Allergies Allergies Allergy/AdvReac Type Severity Reaction Status Date / Time Sulfa (Sulfonamide Allergy Intermediate PUFFY EYES Verified 04/22/22 06:14 Antibiotics) [SULFA (SULFONAMIDE ANTIBIOTICS)] Penicillins [PENICILLINS] Allergy Mild PT STATES Verified 04/22/22 06:14 NOTHING HAPPENS, ALLG LISTED ON TRANF SHEET Assessment & Plan Assessment & Plan (1) Schizophrenia: Qualifiers: Schizophrenia type: paranoid schizophrenia Qualified Code(s): F20.0 - Paranoid schizophrenia Status: Acute Code(s): F20.9 - Schizophrenia, unspecified Plan 01/23: increase VPA from 1000 mg QHS to 2000 mg QHS as of tonight. otherwise continue current mgmt. 01/24: appears unchanged from yesterday. malodorous, very poor hygiene, unkempt and disheveled. continue current mgmt. plan to increase VPA to 2500 mg in a day or two, as that is more likely to be a therapeutic dose. 01/25: increase VPA to 2500 mg QHS as of tonight. check level in 5 days. observe for resolution of mood and psychotic Sx. T/C increase clozapine dosing if mood stabilizer at therapeutic serum level is not effective. 01/26/2023: No changes to current plan 01/27: no changes 01/28: continue current mgmt. seems to have improved somewhat from admission. check labs weds juan m. 01/29: stabilizing. less affectively intense or labile. continue current mgmt. labs tomorrow juan m. Reason for continued inpatient stay Substantial Risk for: harm to self, inability to function and rapid decompensation Time Spent With Patient Time: Total time managing care of this patient today ____ minutes.
[2023-01-29 21:06] LABS: Glucose, Whole Blood 215 mg/dL (60-115)
[2023-01-29] MEDS: Insulin Glargine,Hum.rec.anlog 100 UNIT/ML 10 ML VIAL 70 UNIT SUBCUT (21:12)
[2023-01-29] MEDS: Divalproex Sodium ER 500 MG TAB.ER.24H 2500 MG PO (21:12)
[2023-01-29] MEDS: cloZAPine 100 MG TABLET 300 MG PO (21:13)
[2023-01-29 21:18] VITALS: BP 142/66; PULSE 106; TEMP 36.6; O2SAT 97
[2023-01-30] MEDS: Omeprazole 20 MG CAPSULE.DR PO (06:57)
[2023-01-30 08:31] LABS: Glucose, Whole Blood 151 mg/dL (60-115)
[2023-01-30 08:33] LABS: Neut%MD 57.1 %; Neutrophils Absolute Auto 6.1 x10*3/uL (2.0-8.3); WBCANC 10.7 X10*3/uL
[2023-01-30 08:44] VITALS: BP 129/64; PULSE 95; RESP 20; TEMP 37.1; O2SAT 97
[2023-01-30 08:45] LABS: Creatinine Clr Calc Pharmacy 119.8; Estimated Glomerular Filt Rate > 60
[2023-01-30] MEDS: Perphenazine 4 MG TABLET PO ×2 (08:45→21:33)
[2023-01-30] MEDS: Ascorbic Acid 500 MG TABLET PO (08:45)
[2023-01-30] MEDS: Ferrous Sulfate 324 MG TABLET.DR PO (08:45)
[2023-01-30] MEDS: cloZAPine 25 MG TABLET PO (08:45)
[2023-01-30] MEDS: Metoprolol Tartrate 25 MG TABLET PO ×2 (08:46→21:33)
[2023-01-30] MEDS: cloZAPine 100 MG TABLET PO (08:46)
[2023-01-30] MEDS: Sennosides/Docusate Sodium TABLET 1 TAB PO (08:46)
[2023-01-30] MEDS: lisinopriL 10 MG TABLET PO (08:46)
[2023-01-30] MEDS: Sertraline HCL 50 MG TABLET PO (08:46)
[2023-01-30] MEDS: metFORMIN HCl ER 500 MG TAB.ER.24H 1000 MG PO ×2 (08:46→21:32)
--- NOTE | 2023-01-30 15:15 | HO.PSYCHPN ---
Subjective Subjective Date of Service: 01/30/23 Reason For Visit: Psychosis Interim History: in bed, easily roused. brighter, pleasant. just says she is tired. reports being out and about more in recent days than before. acknowledges feeling improved from admission. per staff, +AH. lots of sleeping. safe, no SI/HI. not attending groups aside from [facility]. Mental Status Exam Mental Status Exam Narrative: Appearance: wearing hospital gown, adequately groomed Behavior: cooperative Psychomotor: no agitation or retardation noted TP: linear TC: no delusions or paranoia expressed Mood: improved Affect: normo-intense, non-labile, full-range SI: none expressed HI: none expressed AH: reports hearing voices VH: none expressed Insight/judgment: fair x 2. Diagnostics Vital Signs (24Hr): Vital Signs - 24 hr 01/29/23 21:18 01/30/23 08:44 Temperature 97.8 F 98.8 F Pulse Rate 106 H 95 Respiratory Rate 20 Blood Pressure 142/66 H 129/64 Pulse Oximetry 97 97 Oxygen Delivery Method Room Air Room Air BMI result Body Mass Index 45.1 Labs 01/22/23 12:41 01/30/23 08:23 Labs: Laboratory Results - last 48 hr 01/28/23 01/29/23 01/29/23 20:27 08:36 20:57 Absolute Neuts (auto) Creatinine Estim Creat Clear Calc Estimated GFR POC Glucose 262 H 120 H 215 H 01/30/23 01/30/23 08:23 08:27 Absolute Neuts (auto) 6.1 Creatinine 0.73 Estim Creat Clear Calc 119.8 Estimated GFR > 60 POC Glucose 151 H Medications Medications Current Medications Acetaminophen (Acetaminophen 325 Mg Tablet) 650 mg PO Q6H PRN PRN Reason: Headache/Pain Mild Scale (1-3) Al Hydroxide/Mg Hydroxide (Magnesium Hydrox/Alum Hydrox 30 Ml Oral.Susp) 30 ml PO Q6H PRN PRN Reason: Heartburn/Nausea Ascorbic Acid (Ascorbic Acid 500 Mg Tablet) 500 mg PO DAILY [facility] Last Admin: 01/30/23 08:45 Dose: 500 mg Clozapine (Clozapine 25 Mg Tablet) 25 mg PO DAILY [facility] Last Admin: 01/30/23 08:45 Dose: 25 mg Clozapine (Clozapine 100 Mg Tablet) 100 mg PO DAILY [facility] Last Admin: 09/13/23 08:46 Dose: 100 mg Clozapine (Clozapine 100 Mg Tablet) 300 mg PO BEDTIME [facility] Last Admin: 01/29/23 21:13 Dose: 300 mg Divalproex Sodium (Divalproex Sodium Er 500 Mg Tab.Er.24h) 2,500 mg PO BEDTIME [facility] Last Admin: 01/29/23 21:12 Dose: 2,500 mg Docusate Sodium (Docusate Sodium 100 Mg Capsule) 100 mg PO BID PRN PRN Reason: Constipation Ferrous Sulfate (Ferrous Sulfate 324 Mg Tablet.) 324 mg PO DAILY [facility] Last Admin: 01/30/23 08:45 Dose: 324 mg Hydroxyzine HCl (Hydroxyzine Hcl 25 Mg Tablet) 25 mg PO Q6H PRN PRN Reason: Anxiety Insulin Glargine (Insulin Glargine,Hum.Rec.Anlog 100 Unit/Ml 10 Ml Vial) 70 unit SUBCUT BEDTIME [facility] Last Admin: 01/29/23 21:12 Dose: 70 unit Lisinopril (Lisinopril 10 Mg Tablet) 10 mg PO DAILY [facility]; Protocol Last Admin: 01/30/23 08:46 Dose: 10 mg Magnesium Hydroxide (Milk Of Magnesia 30 Ml Oral.Susp) 30 ml PO DAILY PRN PRN Reason: Constipation Metformin HCl (Metformin Hcl Er 500 Mg Tab.Er.24h) 1,000 mg PO BID [facility] Last Admin: 01/30/23 08:46 Dose: 1,000 mg Metoprolol Tartrate (Metoprolol Tartrate 25 Mg Tablet) 25 mg PO BID [facility]; Protocol Last Admin: 01/30/23 08:46 Dose: 25 mg Nicotine Polacrilex (Nicotine Polacrilex 2 Mg Gum) 4 mg BUCCAL Q2H PRN PRN Reason: Nicotine Cravings Non-Formulary Medication (Dulaglutide [Trulicity]) 0.5 ml SUBCUT WE@0900 [facility] Omeprazole (Omeprazole 20 Mg Capsule.) 20 mg PO DAILY@0630 [facility] Last Admin: 01/30/23 06:57 Dose: 20 mg Perphenazine (Perphenazine 4 Mg Tablet) 4 mg PO BID [facility] Last Admin: 01/30/23 08:45 Dose: 4 mg Senna/Docusate Sodium (Sennosides/Docusate Sodium Tablet) 1 tab PO DAILY [facility] Last Admin: 01/30/23 08:46 Dose: 1 tab Sertraline HCl (Sertraline Hcl 50 Mg Tablet) 50 mg PO DAILY [facility] Last Admin: 01/30/23 08:46 Dose: 50 mg Trazodone HCl (Trazodone Hcl 50 Mg Tablet) 50 mg PO BEDTIME MRX1 PRN PRN Reason: Insomnia Allergies Allergies Allergy/AdvReac Type Severity Reaction Status Date / Time Sulfa (Sulfonamide Allergy Intermediate PUFFY EYES Verified 04/22/22 06:14 Antibiotics) [SULFA (SULFONAMIDE ANTIBIOTICS)] Penicillins [PENICILLINS] Allergy Mild PT STATES Verified 04/22/22 06:14 NOTHING HAPPENS, ALLG LISTED ON TRANF SHEET Assessment & Plan Assessment & Plan (1) Schizophrenia: Qualifiers: Schizophrenia type: paranoid schizophrenia Qualified Code(s): F20.0 - Paranoid schizophrenia Status: Acute Code(s): F20.9 - Schizophrenia, unspecified Plan 01/23: increase VPA from 1000 mg QHS to 2000 mg QHS as of tonight. otherwise continue current mgmt. 01/24: appears unchanged from yesterday. malodorous, very poor hygiene, unkempt and disheveled. continue current mgmt. plan to increase VPA to 2500 mg in a day or two, as that is more likely to be a therapeutic dose. 01/25: increase VPA to 2500 mg QHS as of tonight. check level in 5 days. observe for resolution of mood and psychotic Sx. T/C increase clozapine dosing if mood stabilizer at therapeutic serum level is not effective. 01/26/2023: No changes to current plan 01/27: no changes 01/28: continue current mgmt. seems to have improved somewhat from admission. check labs weds juan m. 01/29: stabilizing. less affectively intense or labile. continue current mgmt. labs tomorrow juan m. 01/30: full range of affect today, spending more time out of room. remains in bed much of the time, however. labs tonight. Reason for continued inpatient stay Substantial Risk for: inability to function and rapid decompensation Time Spent With Patient Time: Total time managing care of this patient today ____ minutes.
[2023-01-30 19:55] LABS: MANUAL DIFF FLAG NO
[2023-01-30 19:58] LABS: Basophils Percent Auto 0.3 % (0-2); Eosinophils Absolute Auto 0.2 X10*3/uL (0.0-0.4); Eosinophils Percent Auto 1.4 % (0-4); Hematocrit 38.9 % (37.0-47.0); Hemoglobin 12.4 g/dl (12.0-16.0); Imm Gran Abs Auto 0.05 X10*3/uL (0.00-0.03); Imm Gran Pct Auto 0.5 % (0.0-0.4); Lymphocytes Percent Auto 26.9 % (20-40); Mean Corpuscular HGB Conc 31.9 g/dl (31.0-35.0); Mean Corpuscular Hemoglobin 26.7 pg (27.0-33.0); Mean Corpuscular Volume 83.7 fL (80.0-98.0); Mean Platelet Volume 9.4 fL (9.4-12.3); Monocytes Absolute Auto 0.6 X10*3/uL (0.1-1.2); Monocytes Percent Auto 5.1 % (2-11); Neutrophils Absolute Auto 7.3 x10*3/uL (2.0-8.3); Neutrophils Percent Auto 65.8 % (45-73); Platelet Count 301 X10*3/uL (160-400); Red Blood Count 4.65 X10*6/uL (4.20-5.50); Red Cell Distribution Width 14.2 % (11.0-16.0); White Blood Count 11.1 X10*3/uL (4.8-10.8)
[2023-01-30 20:10] LABS: Valproate 43.6 mcg/mL (50.0-100.0)
[2023-01-30 20:14] LABS: Alanine Aminotransferase 13 U/L (0-31); Albumin Level 3.9 g/dL (3.5-5.0); Alkaline Phosphatase 62 U/L (39-117); Anion Gap 13 (12-20); Aspartate Amino Transferase 8 U/L (5-31); Bilirubin Direct < 0.2 mg/dL (0.0-0.5); Bilirubin Total 0.1 mg/dL (0.0-1.0); Blood Urea Nitrogen 16 mg/dL (9-16); Calcium 9.5 mg/dL (8.4-10.2); Carbon Dioxide 24 mmol/L (22-29); Chloride 102 mmol/L (96-108); Creatinine Clr Calc Pharmacy 113.6; Estimated Glomerular Filt Rate > 60; Glucose Random 257 mg/dL (60-115); Potassium 4.4 mmol/L (3.3-5.1); Sodium 135 mmol/L (135-145); Total Protein 6.8 g/dL (6.5-8.0)
[2023-01-30 20:23] LABS: Ammonia 32 umol/L (13-55)
[2023-01-30 20:25] LABS: Glucose, Whole Blood 280 mg/dL (60-115)
[2023-01-30] MEDS: Insulin Glargine,Hum.rec.anlog 100 UNIT/ML 10 ML VIAL 70 UNIT SUBCUT (21:31)
[2023-01-30] MEDS: Divalproex Sodium ER 500 MG TAB.ER.24H 2500 MG PO (21:32)
[2023-01-30] MEDS: cloZAPine 100 MG TABLET 300 MG PO (21:32)
[2023-01-30 21:36] VITALS: BP 128/62; PULSE 98; TEMP 36.6; O2SAT 99
[2023-01-31] MEDS: Omeprazole 20 MG CAPSULE.DR PO (06:36)
[2023-01-31 07:00] VITALS: BMI 44.5
[2023-01-31 08:24] LABS: Glucose, Whole Blood 173 mg/dL (60-115)
[2023-01-31 08:42] VITALS: BP 114/71; PULSE 94; RESP 18; TEMP 36.5; O2SAT 96
[2023-01-31] MEDS: lisinopriL 10 MG TABLET PO (08:44)
[2023-01-31] MEDS: Metoprolol Tartrate 25 MG TABLET PO ×2 (08:44→22:10)
[2023-01-31] MEDS: cloZAPine 100 MG TABLET PO (08:44)
[2023-01-31] MEDS: cloZAPine 25 MG TABLET PO (08:44)
[2023-01-31] MEDS: Perphenazine 4 MG TABLET PO ×2 (08:44→22:10)
[2023-01-31] MEDS: Ferrous Sulfate 324 MG TABLET.DR PO (08:44)
[2023-01-31] MEDS: Sertraline HCL 50 MG TABLET PO (08:44)
[2023-01-31] MEDS: metFORMIN HCl ER 500 MG TAB.ER.24H 1000 MG PO ×2 (08:44→22:08)
[2023-01-31] MEDS: Sennosides/Docusate Sodium TABLET 1 TAB PO (08:44)
[2023-01-31] MEDS: Ascorbic Acid 500 MG TABLET PO (08:44)
--- NOTE | 2023-01-31 12:51 | HO.PSYCHPN ---
Subjective Subjective Date of Service: 01/31/23 Reason For Visit: Psychosis Interim History: no change in presentation from yesterday. lab results reviewed, pt declines to further increase VPA dosing despite sub-therapeutic level. feeling gradually improved, concerned about sedation. feels her AH are settling down. per staff in bed all shift. AH decreasing. anx/dep 02/26. denies SI/HI/VH. +nightmares. sleeping well. Mental Status Exam Mental Status Exam Narrative: Appearance: wearing hospital gown, adequately groomed Behavior: cooperative Psychomotor: no agitation or retardation noted TP: linear TC: no delusions or paranoia expressed Mood: improved Affect: normo-intense, non-labile, full-range SI: none expressed HI: none expressed AH: reports hearing voices VH: none expressed Insight/judgment: fair x 2. Diagnostics Vital Signs (24Hr): Vital Signs - 24 hr 01/30/23 21:36 01/31/23 08:42 Temperature 97.9 F 97.7 F Pulse Rate 98 94 Respiratory Rate 18 Blood Pressure 128/62 114/71 Pulse Oximetry 99 96 Oxygen Delivery Method Room Air BMI result Body Mass Index 44.5 Labs 01/30/23 19:48 01/30/23 19:48 Labs: Laboratory Results - last 48 hr 01/29/23 01/30/23 01/30/23 20:57 08:23 08:27 WBC RBC Hgb Hct MCV MCH MCHC RDW Plt Count MPV Immature Gran % (Auto) Neut % (Auto) Lymph % (Auto) [place] % (Auto) Eos % (Auto) Baso % (Auto) Lymph # (Auto) [place] # (Auto) Eos # (Auto) Baso # (Auto) Abs Immat Gran (auto) Absolute Neuts (auto) 6.1 Absolute Nucleated RBC Nucleated RBC % (auto) Sodium Potassium Chloride Carbon Dioxide Anion Gap BUN Creatinine 0.73 Estim Creat Clear Calc 119.8 Estimated GFR > 60 POC Glucose 215 H 151 H Random Glucose Calcium Total Bilirubin Direct Bilirubin AST ALT Alkaline Phosphatase Ammonia Total Protein Albumin Valproic Acid 01/30/23 01/30/23 01/31/23 19:48 20:15 08:07 WBC 11.1 H RBC 4.65 Hgb 12.4 Hct 38.9 MCV 83.7 MCH 26.7 L MCHC 31.9 RDW 14.2 Plt Count 301 MPV 9.4 Immature Gran % (Auto) 0.5 H Neut % (Auto) 65.8 Lymph % (Auto) 26.9 [place] % (Auto) 5.1 Eos % (Auto) 1.4 Baso % (Auto) 0.3 Lymph # (Auto) 3.0 [place] # (Auto) 0.6 Eos # (Auto) 0.2 Baso # (Auto) 0.0 Abs Immat Gran (auto) 0.05 H Absolute Neuts (auto) 7.3 Absolute Nucleated RBC 0.000 Nucleated RBC % (auto) 0.0 Sodium 135 Potassium 4.4 Chloride 102 Carbon Dioxide 24 Anion Gap 13 BUN 16 Creatinine 0.77 Estim Creat Clear Calc 113.6 Estimated GFR > 60 POC Glucose 280 H 173 H Random Glucose 257 H Calcium 9.5 Total Bilirubin 0.1 Direct Bilirubin < 0.2 AST 8 ALT 13 Alkaline Phosphatase 62 Ammonia 32 Total Protein 6.8 Albumin 3.9 Valproic Acid 43.6 L Medications Medications Current Medications Acetaminophen (Acetaminophen 325 Mg Tablet) 650 mg PO Q6H PRN PRN Reason: Headache/Pain Mild Scale (1-3) Al Hydroxide/Mg Hydroxide (Magnesium Hydrox/Alum Hydrox 30 Ml Oral.Susp) 30 ml PO Q6H PRN PRN Reason: Heartburn/Nausea Ascorbic Acid (Ascorbic Acid 500 Mg Tablet) 500 mg PO DAILY [facility] Last Admin: 01/31/23 08:44 Dose: 500 mg Clozapine (Clozapine 25 Mg Tablet) 25 mg PO DAILY [facility] Last Admin: 01/31/23 08:44 Dose: 25 mg Clozapine (Clozapine 100 Mg Tablet) 100 mg PO DAILY [facility] Last Admin: 01/31/23 08:44 Dose: 100 mg Clozapine (Clozapine 100 Mg Tablet) 300 mg PO BEDTIME [facility] Last Admin: 01/30/23 21:32 Dose: 300 mg Divalproex Sodium (Divalproex Sodium Er 500 Mg Tab.Er.24h) 2,500 mg PO BEDTIME [facility] Last Admin: 01/30/23 21:32 Dose: 2,500 mg Docusate Sodium (Docusate Sodium 100 Mg Capsule) 100 mg PO BID PRN PRN Reason: Constipation Ferrous Sulfate (Ferrous Sulfate 324 Mg Tablet.Dr) 324 mg PO DAILY [facility] Last Admin: 01/31/23 08:44 Dose: 324 mg Hydroxyzine HCl (Hydroxyzine Hcl 25 Mg Tablet) 25 mg PO Q6H PRN PRN Reason: Anxiety Insulin Glargine (Insulin Glargine,Hum.Rec.Anlog 100 Unit/Ml 10 Ml Vial) 70 unit SUBCUT BEDTIME [facility] Last Admin: 01/30/23 21:31 Dose: 70 unit Lisinopril (Lisinopril 10 Mg Tablet) 10 mg PO DAILY [facility]; Protocol Last Admin: 01/31/23 08:44 Dose: 10 mg Magnesium Hydroxide (Milk Of Magnesia 30 Ml Oral.Susp) 30 ml PO DAILY PRN PRN Reason: Constipation Metformin HCl (Metformin Hcl Er 500 Mg Tab.Er.24h) 1,000 mg PO BID [facility] Last Admin: 01/31/23 08:44 Dose: 1,000 mg Metoprolol Tartrate (Metoprolol Tartrate 25 Mg Tablet) 25 mg PO BID [facility]; Protocol Last Admin: 01/31/23 08:44 Dose: 25 mg Nicotine Polacrilex (Nicotine Polacrilex 2 Mg Gum) 4 mg BUCCAL Q2H PRN PRN Reason: Nicotine Cravings Non-Formulary Medication (Dulaglutide [Trulicity]) 0.5 ml SUBCUT WE@0900 [facility] Omeprazole (Omeprazole 20 Mg Capsule.Dr) 20 mg PO DAILY@0630 [facility] Last Admin: 01/31/23 06:36 Dose: 20 mg Perphenazine (Perphenazine 4 Mg Tablet) 4 mg PO BID [facility] Last Admin: 01/31/23 08:44 Dose: 4 mg Senna/Docusate Sodium (Sennosides/Docusate Sodium Tablet) 1 tab PO DAILY [facility] Last Admin: 01/31/23 08:44 Dose: 1 tab Sertraline HCl (Sertraline Hcl 50 Mg Tablet) 50 mg PO DAILY [facility] Last Admin: 01/31/23 08:44 Dose: 50 mg Trazodone HCl (Trazodone Hcl 50 Mg Tablet) 50 mg PO BEDTIME MRX1 PRN PRN Reason: Insomnia Allergies Allergies Allergy/AdvReac Type Severity Reaction Status Date / Time Sulfa (Sulfonamide Allergy Intermediate PUFFY EYES Verified 04/22/22 06:14 Antibiotics) [SULFA (SULFONAMIDE ANTIBIOTICS)] Penicillins [PENICILLINS] Allergy Mild PT STATES Verified 04/22/22 06:14 NOTHING HAPPENS, ALLG LISTED ON TRANF SHEET Assessment & Plan Assessment & Plan (1) Schizophrenia: Qualifiers: Schizophrenia type: paranoid schizophrenia Qualified Code(s): F20.0 - Paranoid schizophrenia Status: Acute Code(s): F20.9 - Schizophrenia, unspecified Plan 01/23: increase VPA from 1000 mg QHS to 2000 mg QHS as of tonight. otherwise continue current mgmt. 01/24: appears unchanged from yesterday. malodorous, very poor hygiene, unkempt and disheveled. continue current mgmt. plan to increase VPA to 2500 mg in a day or two, as that is more likely to be a therapeutic dose. 01/25: increase VPA to 2500 mg QHS as of tonight. check level in 5 days. observe for resolution of mood and psychotic Sx. T/C increase clozapine dosing if mood stabilizer at therapeutic serum level is not effective. 01/26/2023: No changes to current plan 01/27: no changes 01/28: continue current mgmt. seems to have improved somewhat from admission. check labs weds juan m. 01/29: stabilizing. less affectively intense or labile. continue current mgmt. labs tomorrow juan m. 01/30: full range of affect today, spending more time out of room. remains in bed much of the time, however. labs tonight. 01/31: stable improvements. VPA level 43.6, pt declines increase. AH decreasing. continue current mgmt. Reason for continued inpatient stay Substantial Risk for: inability to function and rapid decompensation Time Spent With Patient Time: Total time managing care of this patient today __25__ minutes.
[2023-01-31 20:10] VITALS: BP 108/60; PULSE 78; RESP 18; TEMP 36.6; O2SAT 98
[2023-01-31] MEDS: Insulin Glargine,Hum.rec.anlog 100 UNIT/ML 10 ML VIAL 70 UNIT SUBCUT (22:05)
[2023-01-31] MEDS: Divalproex Sodium ER 500 MG TAB.ER.24H 2500 MG PO (22:07)
[2023-01-31] MEDS: cloZAPine 100 MG TABLET 300 MG PO (22:09)
[2023-02-01 06:00] VITALS: BP 139/62; PULSE 96; RESP 16; TEMP 36.1; O2SAT 99
[2023-02-01] MEDS: Omeprazole 20 MG CAPSULE.DR PO (06:39)
[2023-02-01 08:31] LABS: Glucose, Whole Blood 148 mg/dL (60-115)
[2023-02-01] MEDS: Ferrous Sulfate 324 MG TABLET.DR PO (08:49)
[2023-02-01] MEDS: metFORMIN HCl ER 500 MG TAB.ER.24H 1000 MG PO ×2 (08:49→22:06)
[2023-02-01] MEDS: Metoprolol Tartrate 25 MG TABLET PO ×2 (08:49→22:05)
[2023-02-01] MEDS: lisinopriL 10 MG TABLET PO (08:49)
[2023-02-01] MEDS: Ascorbic Acid 500 MG TABLET PO (08:49)
[2023-02-01] MEDS: Sertraline HCL 50 MG TABLET PO (08:50)
[2023-02-01] MEDS: Perphenazine 4 MG TABLET PO ×2 (08:50→22:06)
[2023-02-01] MEDS: Sennosides/Docusate Sodium TABLET 1 TAB PO (08:50)
[2023-02-01] MEDS: cloZAPine 100 MG TABLET PO (08:50)
[2023-02-01] MEDS: cloZAPine 25 MG TABLET PO (08:50)
--- NOTE | 2023-02-01 13:05 | P.PNPSI_ITS ---
Subjective Subjective Date of Service: 02/01/23 Reason For Visit: Psychosis Subjective Notes: Conditional Voluntary Interim History: Pt in bed. She reports hearing voices. She states she can't tell whether voices are female or male. She denies SI/HI. She reports sleeping. She does not attend groups. Mostly in bed. Denies physical concern. only up for meals. Medication Compliance: Yes Side effects from medications: No Review of Systems Review of Systems Unremarkable Yes all other systems are reviewed and are negative Constitutional: Reports as per HPI Mental Status Exam Mental Status Exam Narrative: Appearance: wearing hospital gown, adequately groomed Behavior: cooperative Psychomotor: no agitation or retardation noted TP: linear TC: no delusions or paranoia expressed Mood: improved Affect: normo-intense, non-labile, full-range SI: none expressed HI: none expressed AH: reports hearing voices VH: none expressed Insight/judgment: fair x 2. Diagnostics Vital Signs (24Hr): Vital Signs - 24 hr 01/31/23 20:10 Temperature 98 F Pulse Rate 78 Respiratory Rate 18 Blood Pressure 108/60 Pulse Oximetry 98 Oxygen Delivery Method Room Air BMI result Body Mass Index 44.5 Labs 01/30/23 19:48 01/30/23 19:48 Labs: Laboratory Results - last 48 hr 01/30/23 01/30/23 01/31/23 19:48 20:15 08:07 WBC 11.1 H RBC 4.65 Hgb 12.4 Hct 38.9 MCV 83.7 MCH 26.7 L MCHC 31.9 RDW 14.2 Plt Count 301 MPV 9.4 Immature Gran % (Auto) 0.5 H Neut % (Auto) 65.8 Lymph % (Auto) 26.9 [place] % (Auto) 5.1 Eos % (Auto) 1.4 Baso % (Auto) 0.3 Lymph # (Auto) 3.0 [place] # (Auto) 0.6 Eos # (Auto) 0.2 Baso # (Auto) 0.0 Abs Immat Gran (auto) 0.05 H Absolute Neuts (auto) 7.3 Absolute Nucleated RBC 0.000 Nucleated RBC % (auto) 0.0 Sodium 135 Potassium 4.4 Chloride 102 Carbon Dioxide 24 Anion Gap 13 BUN 16 Creatinine 0.77 Estim Creat Clear Calc 113.6 Estimated GFR > 60 POC Glucose 280 H 173 H Random Glucose 257 H Calcium 9.5 Total Bilirubin 0.1 Direct Bilirubin < 0.2 AST 8 ALT 13 Alkaline Phosphatase 62 Ammonia 32 Total Protein 6.8 Albumin 3.9 Valproic Acid 43.6 L 02/01/23 08:14 WBC RBC Hgb Hct MCV MCH MCHC RDW Plt Count MPV Immature Gran % (Auto) Neut % (Auto) Lymph % (Auto) [place] % (Auto) Eos % (Auto) Baso % (Auto) Lymph # (Auto) [place] # (Auto) Eos # (Auto) Baso # (Auto) Abs Immat Gran (auto) Absolute Neuts (auto) Absolute Nucleated RBC Nucleated RBC % (auto) Sodium Potassium Chloride Carbon Dioxide Anion Gap BUN Creatinine Estim Creat Clear Calc Estimated GFR POC Glucose 148 H Random Glucose Calcium Total Bilirubin Direct Bilirubin AST ALT Alkaline Phosphatase Ammonia Total Protein Albumin Valproic Acid Medications Medications Current Medications Acetaminophen (Acetaminophen 325 Mg Tablet) 650 mg PO Q6H PRN PRN Reason: Headache/Pain Mild Scale (1-3) Al Hydroxide/Mg Hydroxide (Magnesium Hydrox/Alum Hydrox 30 Ml Oral.Susp) 30 ml PO Q6H PRN PRN Reason: Heartburn/Nausea Ascorbic Acid (Ascorbic Acid 500 Mg Tablet) 500 mg PO DAILY [facility] Last Admin: 02/01/23 08:49 Dose: 500 mg Clozapine (Clozapine 25 Mg Tablet) 25 mg PO DAILY [facility] Last Admin: 02/01/23 08:50 Dose: 25 mg Clozapine (Clozapine 100 Mg Tablet) 100 mg PO DAILY [facility] Last Admin: 02/01/23 08:50 Dose: 100 mg Clozapine (Clozapine 100 Mg Tablet) 300 mg PO BEDTIME [facility] Last Admin: 01/31/23 22:09 Dose: 300 mg Divalproex Sodium (Divalproex Sodium Er 500 Mg Tab.Er.24h) 2,500 mg PO BEDTIME [facility] Last Admin: 01/31/23 22:07 Dose: 2,500 mg Docusate Sodium (Docusate Sodium 100 Mg Capsule) 100 mg PO BID PRN PRN Reason: Constipation Ferrous Sulfate (Ferrous Sulfate 324 Mg Tablet.Dr) 324 mg PO DAILY [facility] Last Admin: 02/01/23 08:49 Dose: 324 mg Hydroxyzine HCl (Hydroxyzine Hcl 25 Mg Tablet) 25 mg PO Q6H PRN PRN Reason: Anxiety Insulin Glargine (Insulin Glargine,Hum.Rec.Anlog 100 Unit/Ml 10 Ml Vial) 70 unit SUBCUT BEDTIME [facility] Last Admin: 01/31/23 22:05 Dose: 70 unit Lisinopril (Lisinopril 10 Mg Tablet) 10 mg PO DAILY [facility]; Protocol Last Admin: 02/01/23 08:49 Dose: 10 mg Magnesium Hydroxide (Milk Of Magnesia 30 Ml Oral.Susp) 30 ml PO DAILY PRN PRN Reason: Constipation Metformin HCl (Metformin Hcl Er 500 Mg Tab.Er.24h) 1,000 mg PO BID [facility] Last Admin: 02/01/23 08:49 Dose: 1,000 mg Metoprolol Tartrate (Metoprolol Tartrate 25 Mg Tablet) 25 mg PO BID [facility]; Protocol Last Admin: 02/01/23 08:49 Dose: 25 mg Nicotine Polacrilex (Nicotine Polacrilex 2 Mg Gum) 4 mg BUCCAL Q2H PRN PRN Reason: Nicotine Cravings Non-Formulary Medication (Dulaglutide [Trulicity]) 0.5 ml SUBCUT WE@0900 [facility] Omeprazole (Omeprazole 20 Mg Capsule.Dr) 20 mg PO DAILY@0630 [facility] Last Admin: 02/01/23 06:39 Dose: 20 mg Perphenazine (Perphenazine 4 Mg Tablet) 4 mg PO BID [facility] Last Admin: 02/01/23 08:50 Dose: 4 mg Senna/Docusate Sodium (Sennosides/Docusate Sodium Tablet) 1 tab PO DAILY [facility] Last Admin: 02/01/23 08:50 Dose: 1 tab Sertraline HCl (Sertraline Hcl 50 Mg Tablet) 50 mg PO DAILY [facility] Last Admin: 02/01/23 08:50 Dose: 50 mg Trazodone HCl (Trazodone Hcl 50 Mg Tablet) 50 mg PO BEDTIME MRX1 PRN PRN Reason: Insomnia Allergies Allergies Allergy/AdvReac Type Severity Reaction Status Date / Time Sulfa (Sulfonamide Allergy Intermediate PUFFY EYES Verified 04/22/22 06:14 Antibiotics) [SULFA (SULFONAMIDE ANTIBIOTICS)] Penicillins [PENICILLINS] Allergy Mild PT STATES Verified 04/22/22 06:14 NOTHING HAPPENS, ALLG LISTED ON TRANF SHEET Assessment & Plan Assessment & Plan (1) Schizophrenia: Qualifiers: Schizophrenia type: paranoid schizophrenia Qualified Code(s): F20.0 - Paranoid schizophrenia Status: Acute Code(s): F20.9 - Schizophrenia, unspecified Plan 01/23: increase VPA from 1000 mg QHS to 2000 mg QHS as of tonight. otherwise continue current mgmt. 01/24: appears unchanged from yesterday. malodorous, very poor hygiene, unkempt and disheveled. continue current mgmt. plan to increase VPA to 2500 mg in a day or two, as that is more likely to be a therapeutic dose. 01/25: increase VPA to 2500 mg QHS as of tonight. check level in 5 days. observe for resolution of mood and psychotic Sx. T/C increase clozapine dosing if mood stabilizer at therapeutic serum level is not effective. 01/26/2023: No changes to current plan 01/27: no changes 01/28: continue current mgmt. seems to have improved somewhat from admission. check labs weds juan m. 01/29: stabilizing. less affectively intense or labile. continue current mgmt. labs tomorrow juan m. 01/30: full range of affect today, spending more time out of room. remains in bed much of the time, however. labs tonight. 01/31: stable improvements. VPA level 43.6, pt declines increase. AH decreasing. continue current mgmt. 02/01 continue tx. Reason for continued inpatient stay Substantial Risk for: inability to function Time Spent With Patient Time: Total time managing care of this patient today ____ minutes.
[2023-02-01 21:50] VITALS: BP 143/62; PULSE 103; RESP 16; TEMP 36.2; O2SAT 98
[2023-02-01 22:01] LABS: Glucose, Whole Blood 276 mg/dL (60-115)
[2023-02-01] MEDS: Divalproex Sodium ER 500 MG TAB.ER.24H 2500 MG PO (22:05)
[2023-02-01] MEDS: cloZAPine 100 MG TABLET 300 MG PO (22:06)
[2023-02-01] MEDS: Insulin Glargine,Hum.rec.anlog 100 UNIT/ML 10 ML VIAL 70 UNIT SUBCUT (22:09)
[2023-02-02 06:00] VITALS: BP 136/80; PULSE 98; RESP 16; TEMP 36.6; O2SAT 98
[2023-02-02] MEDS: Omeprazole 20 MG CAPSULE.DR PO (06:58)
[2023-02-02 08:43] LABS: Glucose, Whole Blood 252 mg/dL (60-115)
[2023-02-02] MEDS: Ferrous Sulfate 324 MG TABLET.DR PO (08:58)
[2023-02-02] MEDS: lisinopriL 10 MG TABLET PO (08:58)
[2023-02-02] MEDS: cloZAPine 25 MG TABLET PO (08:58)
[2023-02-02] MEDS: metFORMIN HCl ER 500 MG TAB.ER.24H 1000 MG PO ×2 (08:59→21:22)
[2023-02-02] MEDS: Perphenazine 4 MG TABLET PO ×2 (08:59→21:22)
[2023-02-02] MEDS: cloZAPine 100 MG TABLET PO (08:59)
[2023-02-02] MEDS: Sennosides/Docusate Sodium TABLET 1 TAB PO (08:59)
[2023-02-02] MEDS: Sertraline HCL 50 MG TABLET PO (08:59)
[2023-02-02] MEDS: Metoprolol Tartrate 25 MG TABLET PO ×2 (09:00→21:22)
[2023-02-02] MEDS: Ascorbic Acid 500 MG TABLET PO (09:00)
[2023-02-02 17:25] LABS: Glucose, Whole Blood 260 mg/dL (60-115)
[2023-02-02 18:00] VITALS: BP 129/74; PULSE 93; RESP 18; TEMP 36.6; O2SAT 100
--- NOTE | 2023-02-02 18:40 | PC.NURSE ---
Patient continues on POC BID as ordered. Patient fasting am blood sugar was 252 medical notified and no new orders received. Per medical, Patient doesn't need to have coverage ordered. Patient denies having symptoms of hypo/hyperglycemia. Group called by this law writer and asked to bring in patient's trulicity. half-way staff agreed to bring in med. Per staff, She takes it every SAT.
--- NOTE | 2023-02-02 20:07 | P.PNPSI_ITS ---
Subjective Subjective Date of Service: 02/02/23 Reason For Visit: Psychosis Subjective Notes: Conditional Voluntary Interim History: Pt mostly in bed. She reports hearing voices. She reports hearing voices. She denies SI/HI. She reports sleeping. She does not attend groups. Mostly in bed. Denies physical concern. only up for meals. Review of Systems Review of Systems Unremarkable Yes all other systems are reviewed and are negative Constitutional: Reports as per HPI Mental Status Exam Mental Status Exam Narrative: Appearance: wearing hospital gown, adequately groomed Behavior: cooperative Psychomotor: no agitation or retardation noted TP: linear TC: no delusions or paranoia expressed Mood: improved Affect: normo-intense, non-labile, full-range SI: none expressed HI: none expressed AH: reports hearing voices VH: none expressed Insight/judgment: fair x 2. Diagnostics Vital Signs (24Hr): Vital Signs - 24 hr 02/01/23 21:50 02/02/23 06:00 Temperature 97.2 F 97.9 F Pulse Rate 103 H 98 Respiratory Rate 16 16 Blood Pressure 143/62 H 136/80 Pulse Oximetry 98 98 Oxygen Delivery Method Room Air Room Air BMI result Body Mass Index 44.5 Labs 01/30/23 19:48 01/30/23 19:48 Labs: Laboratory Results - last 48 hr 02/01/23 02/01/23 02/02/23 08:14 21:56 08:37 POC Glucose 148 H 276 H 252 H 02/02/23 17:16 POC Glucose 260 H Medications Medications Current Medications Acetaminophen (Acetaminophen 325 Mg Tablet) 650 mg PO Q6H PRN PRN Reason: Headache/Pain Mild Scale (1-3) Al Hydroxide/Mg Hydroxide (Magnesium Hydrox/Alum Hydrox 30 Ml Oral.Susp) 30 ml PO Q6H PRN PRN Reason: Heartburn/Nausea Ascorbic Acid (Ascorbic Acid 500 Mg Tablet) 500 mg PO DAILY [facility] Last Admin: 02/02/23 09:00 Dose: 500 mg Clozapine (Clozapine 25 Mg Tablet) 25 mg PO DAILY [facility] Last Admin: 02/02/23 08:58 Dose: 25 mg Clozapine (Clozapine 100 Mg Tablet) 100 mg PO DAILY [facility] Last Admin: 02/02/23 08:59 Dose: 100 mg Clozapine (Clozapine 100 Mg Tablet) 300 mg PO BEDTIME [facility] Last Admin: 02/01/23 22:06 Dose: 300 mg Divalproex Sodium (Divalproex Sodium Er 500 Mg Tab.Er.24h) 2,500 mg PO BEDTIME [facility] Last Admin: 02/01/23 22:05 Dose: 2,500 mg Docusate Sodium (Docusate Sodium 100 Mg Capsule) 100 mg PO BID PRN PRN Reason: Constipation Ferrous Sulfate (Ferrous Sulfate 324 Mg Tablet.) 324 mg PO DAILY [facility] Last Admin: 02/02/23 08:58 Dose: 324 mg Hydroxyzine HCl (Hydroxyzine Hcl 25 Mg Tablet) 25 mg PO Q6H PRN PRN Reason: Anxiety Insulin Glargine (Insulin Glargine,Hum.Rec.Anlog 100 Unit/Ml 10 Ml Vial) 70 unit SUBCUT BEDTIME [facility] Last Admin: 02/01/23 22:09 Dose: 70 unit Lisinopril (Lisinopril 10 Mg Tablet) 10 mg PO DAILY [facility]; Protocol Last Admin: 02/02/23 08:58 Dose: 10 mg Magnesium Hydroxide (Milk Of Magnesia 30 Ml Oral.Susp) 30 ml PO DAILY PRN PRN Reason: Constipation Metformin HCl (Metformin Hcl Er 500 Mg Tab.Er.24h) 1,000 mg PO BID [facility] Last Admin: 02/02/23 08:59 Dose: 1,000 mg Metoprolol Tartrate (Metoprolol Tartrate 25 Mg Tablet) 25 mg PO BID [facility]; Protocol Last Admin: 02/02/23 09:00 Dose: 25 mg Nicotine Polacrilex (Nicotine Polacrilex 2 Mg Gum) 4 mg BUCCAL Q2H PRN PRN Reason: Nicotine Cravings Non-Formulary Medication (Dulaglutide [Trulicity]) 0.5 ml SUBCUT WE@0900 [facility] Omeprazole (Omeprazole 20 Mg Capsule.) 20 mg PO DAILY@0630 [facility] Last Admin: 02/02/23 06:58 Dose: 20 mg Perphenazine (Perphenazine 4 Mg Tablet) 4 mg PO BID [facility] Last Admin: 02/02/23 08:59 Dose: 4 mg Senna/Docusate Sodium (Sennosides/Docusate Sodium Tablet) 1 tab PO DAILY [facility] Last Admin: 02/02/23 08:59 Dose: 1 tab Sertraline HCl (Sertraline Hcl 50 Mg Tablet) 50 mg PO DAILY [facility] Last Admin: 02/02/23 08:59 Dose: 50 mg Trazodone HCl (Trazodone Hcl 50 Mg Tablet) 50 mg PO BEDTIME MRX1 PRN PRN Reason: Insomnia Allergies Allergies Allergy/AdvReac Type Severity Reaction Status Date / Time Sulfa (Sulfonamide Allergy Intermediate PUFFY EYES Verified 04/22/22 06:14 Antibiotics) [SULFA (SULFONAMIDE ANTIBIOTICS)] Penicillins [PENICILLINS] Allergy Mild PT STATES Verified 04/22/22 06:14 NOTHING HAPPENS, ALLG LISTED ON TRANF SHEET Assessment & Plan Assessment & Plan (1) Schizophrenia: Qualifiers: Schizophrenia type: paranoid schizophrenia Qualified Code(s): F20.0 - Paranoid schizophrenia Status: Acute Code(s): F20.9 - Schizophrenia, unspecified Plan 01/23: increase VPA from 1000 mg QHS to 2000 mg QHS as of tonight. otherwise continue current mgmt. 01/24: appears unchanged from yesterday. malodorous, very poor hygiene, unkempt and disheveled. continue current mgmt. plan to increase VPA to 2500 mg in a day or two, as that is more likely to be a therapeutic dose. 01/25: increase VPA to 2500 mg QHS as of tonight. check level in 5 days. observe for resolution of mood and psychotic Sx. T/C increase clozapine dosing if mood stabilizer at therapeutic serum level is not effective. 01/26/2023: No changes to current plan 01/27: no changes 01/28: continue current mgmt. seems to have improved somewhat from admission. check labs weds juan m. 01/29: stabilizing. less affectively intense or labile. continue current mgmt. labs tomorrow juan m. 01/30: full range of affect today, spending more time out of room. remains in bed much of the time, however. labs tonight. 01/31: stable improvements. VPA level 43.6, pt declines increase. AH decreasing. continue current mgmt. 02/01 continue tx. 02/02 continue tx. Reason for continued inpatient stay Substantial Risk for: inability to function Time Spent With Patient Time: Total time managing care of this patient today ____ minutes.
[2023-02-02 20:42] LABS: Glucose, Whole Blood 263 mg/dL (60-115)
[2023-02-02] MEDS: Insulin Glargine,Hum.rec.anlog 100 UNIT/ML 10 ML VIAL 70 UNIT SUBCUT (21:19)
[2023-02-02] MEDS: cloZAPine 100 MG TABLET 300 MG PO (21:21)
[2023-02-02] MEDS: Divalproex Sodium ER 500 MG TAB.ER.24H 2500 MG PO (21:21)
[2023-02-03] MEDS: Omeprazole 20 MG CAPSULE.DR PO (06:45)
[2023-02-03 08:15] VITALS: BP 130/70; PULSE 99; RESP 16; TEMP 36.2; O2SAT 99
[2023-02-03 08:40] LABS: Glucose, Whole Blood 129 mg/dL (60-115)
[2023-02-03] MEDS: metFORMIN HCl ER 500 MG TAB.ER.24H 1000 MG PO ×2 (08:48→21:12)
[2023-02-03] MEDS: cloZAPine 100 MG TABLET PO (08:49)
[2023-02-03] MEDS: lisinopriL 10 MG TABLET PO (08:49)
[2023-02-03] MEDS: Ferrous Sulfate 324 MG TABLET.DR PO (08:49)
[2023-02-03] MEDS: Metoprolol Tartrate 25 MG TABLET PO ×2 (08:49→21:13)
[2023-02-03] MEDS: Sennosides/Docusate Sodium TABLET 1 TAB PO (08:49)
[2023-02-03] MEDS: Ascorbic Acid 500 MG TABLET PO (08:50)
[2023-02-03] MEDS: Sertraline HCL 50 MG TABLET PO (08:50)
[2023-02-03] MEDS: Perphenazine 4 MG TABLET PO ×2 (08:50→21:12)
[2023-02-03] MEDS: cloZAPine 25 MG TABLET PO (08:50)
[2023-02-03] MEDS: PT OWN (Dulaglutide [Trulicity] 1.5 mg/0.5 mL pen injector) 0.5 EACH SUBCUT (09:28)
--- NOTE | 2023-02-03 17:47 | PC.NURSE ---
Patient correction provider brought in her trulicity medication earlier today. Medication was given and dispensed by pharmacy. Patient received her dose without incident. Patient has had no s/s of hypo/hypergycemia noted.
--- NOTE | 2023-02-03 20:20 | P.PNPSI_ITS ---
Subjective Subjective Date of Service: 02/03/23 Reason For Visit: Psychosis Interim History: Pt mostly in bed. She continues to report hearing voices. She reports hearing voices. She denies SI/HI. She reports sleeping. She does not attend groups. Mostly in bed. Denies physical concern. only up for meals. Review of Systems Review of Systems Unremarkable Yes all other systems are reviewed and are negative Constitutional: Reports as per HPI Mental Status Exam Mental Status Exam Narrative: Appearance: wearing hospital gown, adequately groomed Behavior: cooperative Psychomotor: no agitation or retardation noted TP: linear TC: no delusions or paranoia expressed Mood: improved Affect: normo-intense, non-labile, full-range SI: none expressed HI: none expressed AH: reports hearing voices VH: none expressed Insight/judgment: fair x 2. Diagnostics Vital Signs (24Hr): Vital Signs - 24 hr 02/03/23 08:15 Temperature 97.1 F Pulse Rate 99 Respiratory Rate 16 Blood Pressure 130/70 Pulse Oximetry 99 Oxygen Delivery Method Room Air BMI result Body Mass Index 44.5 Labs 01/30/23 19:48 01/30/23 19:48 Labs: Laboratory Results - last 48 hr 02/01/23 02/02/23 02/02/23 21:56 08:37 17:16 POC Glucose 276 H 252 H 260 H 02/02/23 02/03/23 20:36 08:33 POC Glucose 263 H 129 H Medications Medications Current Medications Acetaminophen (Acetaminophen 325 Mg Tablet) 650 mg PO Q6H PRN PRN Reason: Headache/Pain Mild Scale (1-3) Al Hydroxide/Mg Hydroxide (Magnesium Hydrox/Alum Hydrox 30 Ml Oral.Susp) 30 ml PO Q6H PRN PRN Reason: Heartburn/Nausea Ascorbic Acid (Ascorbic Acid 500 Mg Tablet) 500 mg PO DAILY [facility] Last Admin: 02/03/23 08:50 Dose: 500 mg Clozapine (Clozapine 25 Mg Tablet) 25 mg PO DAILY [facility] Last Admin: 02/03/23 08:50 Dose: 25 mg Clozapine (Clozapine 100 Mg Tablet) 100 mg PO DAILY [facility] Last Admin: 02/03/23 08:49 Dose: 100 mg Clozapine (Clozapine 100 Mg Tablet) 300 mg PO BEDTIME [facility] Last Admin: 02/02/23 21:21 Dose: 300 mg Divalproex Sodium (Divalproex Sodium Er 500 Mg Tab.Er.24h) 2,500 mg PO BEDTIME [facility] Last Admin: 02/02/23 21:21 Dose: 2,500 mg Docusate Sodium (Docusate Sodium 100 Mg Capsule) 100 mg PO BID PRN PRN Reason: Constipation Ferrous Sulfate (Ferrous Sulfate 324 Mg Tablet.) 324 mg PO DAILY [facility] Last Admin: 02/03/23 08:49 Dose: 324 mg Hydroxyzine HCl (Hydroxyzine Hcl 25 Mg Tablet) 25 mg PO Q6H PRN PRN Reason: Anxiety Insulin Glargine (Insulin Glargine,Hum.Rec.Anlog 100 Unit/Ml 10 Ml Vial) 70 unit SUBCUT BEDTIME [facility] Last Admin: 02/02/23 21:19 Dose: 70 unit Lisinopril (Lisinopril 10 Mg Tablet) 10 mg PO DAILY [facility]; Protocol Last Admin: 02/03/23 08:49 Dose: 10 mg Magnesium Hydroxide (Milk Of Magnesia 30 Ml Oral.Susp) 30 ml PO DAILY PRN PRN Reason: Constipation Metformin HCl (Metformin Hcl Er 500 Mg Tab.Er.24h) 1,000 mg PO BID [facility] Last Admin: 02/03/23 08:48 Dose: 1,000 mg Metoprolol Tartrate (Metoprolol Tartrate 25 Mg Tablet) 25 mg PO BID [facility]; Protocol Last Admin: 02/03/23 08:49 Dose: 25 mg Nicotine Polacrilex (Nicotine Polacrilex 2 Mg Gum) 4 mg BUCCAL Q2H PRN PRN Reason: Nicotine Cravings Pt Own (Dulaglutide [Trulicity] 1.5 Mg/0 .5 Ml Pen Injector) 0.5 ml SUBCUT [facility]@0900 [facility] Last Admin: 02/03/23 09:28 Dose: 0.5 ml Omeprazole (Omeprazole 20 Mg Capsule.) 20 mg PO DAILY@0630 [facility] Last Admin: 02/03/23 06:45 Dose: 20 mg Perphenazine (Perphenazine 4 Mg Tablet) 4 mg PO BID [facility] Last Admin: 02/03/23 08:50 Dose: 4 mg Senna/Docusate Sodium (Sennosides/Docusate Sodium Tablet) 1 tab PO DAILY [facility] Last Admin: 02/03/23 08:49 Dose: 1 tab Sertraline HCl (Sertraline Hcl 50 Mg Tablet) 50 mg PO DAILY [facility] Last Admin: 02/03/23 08:50 Dose: 50 mg Trazodone HCl (Trazodone Hcl 50 Mg Tablet) 50 mg PO BEDTIME MRX1 PRN PRN Reason: Insomnia Allergies Allergies Allergy/AdvReac Type Severity Reaction Status Date / Time Sulfa (Sulfonamide Allergy Intermediate PUFFY EYES Verified 04/22/22 06:14 Antibiotics) [SULFA (SULFONAMIDE ANTIBIOTICS)] Penicillins [PENICILLINS] Allergy Mild PT STATES Verified 04/22/22 06:14 NOTHING HAPPENS, ALLG LISTED ON TRANF SHEET Assessment & Plan Assessment & Plan (1) Schizophrenia: Qualifiers: Schizophrenia type: paranoid schizophrenia Qualified Code(s): F20.0 - Paranoid schizophrenia Status: Acute Code(s): F20.9 - Schizophrenia, unspecified Plan 01/23: increase VPA from 1000 mg QHS to 2000 mg QHS as of tonight. otherwise continue current mgmt. 01/24: appears unchanged from yesterday. malodorous, very poor hygiene, unkempt and disheveled. continue current mgmt. plan to increase VPA to 2500 mg in a day or two, as that is more likely to be a therapeutic dose. 01/25: increase VPA to 2500 mg QHS as of tonight. check level in 5 days. observe for resolution of mood and psychotic Sx. T/C increase clozapine dosing if mood stabilizer at therapeutic serum level is not effective. 01/26/2023: No changes to current plan 01/27: no changes 01/28: continue current mgmt. seems to have improved somewhat from admission. check labs weds juan m. 01/29: stabilizing. less affectively intense or labile. continue current mgmt. labs tomorrow juan m. 01/30: full range of affect today, spending more time out of room. remains in bed much of the time, however. labs tonight. 01/31: stable improvements. VPA level 43.6, pt declines increase. AH decreasing. continue current mgmt. 02/01 continue tx. 02/02 continue tx. 02/03 continue tx. Reason for continued inpatient stay Substantial Risk for: inability to function Time Spent With Patient Time: Total time managing care of this patient today ____ minutes.
[2023-02-03 21:00] VITALS: BP 126/65; PULSE 102; TEMP 36.4; O2SAT 98
[2023-02-03 21:08] LABS: Glucose, Whole Blood 254 mg/dL (60-115)
[2023-02-03] MEDS: Insulin Glargine,Hum.rec.anlog 100 UNIT/ML 10 ML VIAL 70 UNIT SUBCUT (21:10)
[2023-02-03] MEDS: Divalproex Sodium ER 500 MG TAB.ER.24H 2500 MG PO (21:12)
[2023-02-03] MEDS: cloZAPine 100 MG TABLET 300 MG PO (21:12)
[2023-02-04] MEDS: Omeprazole 20 MG CAPSULE.DR PO (06:39)
[2023-02-04 08:22] VITALS: BP 134/84; PULSE 96; RESP 18; TEMP 36; O2SAT 98
[2023-02-04] MEDS: Sertraline HCL 50 MG TABLET PO (08:22)
[2023-02-04] MEDS: Perphenazine 4 MG TABLET PO ×2 (08:22→21:40)
[2023-02-04] MEDS: Ferrous Sulfate 324 MG TABLET.DR PO (08:22)
[2023-02-04] MEDS: Ascorbic Acid 500 MG TABLET PO (08:22)
[2023-02-04] MEDS: cloZAPine 25 MG TABLET PO (08:22)
[2023-02-04] MEDS: metFORMIN HCl ER 500 MG TAB.ER.24H 1000 MG PO ×2 (08:22→21:40)
[2023-02-04] MEDS: Sennosides/Docusate Sodium TABLET 1 TAB PO (08:22)
[2023-02-04] MEDS: lisinopriL 10 MG TABLET PO (08:22)
[2023-02-04] MEDS: cloZAPine 100 MG TABLET PO (08:22)
[2023-02-04] MEDS: Metoprolol Tartrate 25 MG TABLET PO ×2 (08:22→21:40)
[2023-02-04 08:23] LABS: Glucose, Whole Blood 226 mg/dL (60-115)
[2023-02-04] MEDS: Ibuprofen 600 MG TABLET PO (16:26)
--- NOTE | 2023-02-04 18:18 | P.PNPSI_ITS ---
Subjective Subjective Date of Service: 02/04/23 Reason For Visit: Psychosis Interim History: mood mildly better. AH better. much better. in bed, as per usual, but awake/rousable. pleasant. per staff, out for meals. had a visitor. watched baseball with peers. AH toning it down. not attending groups. received home trulicity yesterday. Mental Status Exam Mental Status Exam Narrative: Appearance: wearing hospital gown, adequately groomed Behavior: cooperative Psychomotor: no agitation or retardation noted TP: linear TC: no delusions or paranoia expressed Mood: mildly better Affect: normo-intense, non-labile, full-range SI: none expressed HI: none expressed AH: much improved VH: none expressed Insight/judgment: fair x 2. Diagnostics Vital Signs (24Hr): Vital Signs - 24 hr 02/03/23 21:00 02/04/23 08:22 Temperature 97.5 F 96.8 F Pulse Rate 102 H 96 Respiratory Rate 18 Blood Pressure 126/65 134/84 Pulse Oximetry 98 98 Oxygen Delivery Method Room Air Room Air BMI result Body Mass Index 44.5 Labs 01/30/23 19:48 01/30/23 19:48 Labs: Laboratory Results - last 48 hr 02/02/23 02/03/23 02/03/23 20:36 08:33 21:02 POC Glucose 263 H 129 H 254 H 02/04/23 08:07 POC Glucose 226 H Medications Medications Current Medications Acetaminophen (Acetaminophen 325 Mg Tablet) 650 mg PO Q6H PRN PRN Reason: Headache/Pain Mild Scale (1-3) Al Hydroxide/Mg Hydroxide (Magnesium Hydrox/Alum Hydrox 30 Ml Oral.Susp) 30 ml PO Q6H PRN PRN Reason: Heartburn/Nausea Ascorbic Acid (Ascorbic Acid 500 Mg Tablet) 500 mg PO DAILY [facility] Last Admin: 02/04/23 08:22 Dose: 500 mg Clozapine (Clozapine 25 Mg Tablet) 25 mg PO DAILY [facility] Last Admin: 02/04/23 08:22 Dose: 25 mg Clozapine (Clozapine 100 Mg Tablet) 100 mg PO DAILY [facility] Last Admin: 02/04/23 08:22 Dose: 100 mg Clozapine (Clozapine 100 Mg Tablet) 300 mg PO BEDTIME [facility] Last Admin: 02/03/23 21:12 Dose: 300 mg Divalproex Sodium (Divalproex Sodium Er 500 Mg Tab.Er.24h) 2,500 mg PO BEDTIME [facility] Last Admin: 02/03/23 21:12 Dose: 2,500 mg Docusate Sodium (Docusate Sodium 100 Mg Capsule) 100 mg PO BID PRN PRN Reason: Constipation Ferrous Sulfate (Ferrous Sulfate 324 Mg Tablet.) 324 mg PO DAILY [facility] Last Admin: 02/04/23 08:22 Dose: 324 mg Hydroxyzine HCl (Hydroxyzine Hcl 25 Mg Tablet) 25 mg PO Q6H PRN PRN Reason: Anxiety Ibuprofen (Ibuprofen 600 Mg Tablet) 600 mg PO Q8H PRN PRN Reason: Pain, Mild (Pain Scale 1-3) Last Admin: 02/04/23 16:26 Dose: 600 mg Insulin Glargine (Insulin Glargine,Hum.Rec.Anlog 100 Unit/Ml 10 Ml Vial) 70 unit SUBCUT BEDTIME [facility] Last Admin: 02/03/23 21:10 Dose: 70 unit Lisinopril (Lisinopril 10 Mg Tablet) 10 mg PO DAILY [facility]; Protocol Last Admin: 02/04/23 08:22 Dose: 10 mg Magnesium Hydroxide (Milk Of Magnesia 30 Ml Oral.Susp) 30 ml PO DAILY PRN PRN Reason: Constipation Metformin HCl (Metformin Hcl Er 500 Mg Tab.Er.24h) 1,000 mg PO BID [facility] Last Admin: 02/04/23 08:22 Dose: 1,000 mg Metoprolol Tartrate (Metoprolol Tartrate 25 Mg Tablet) 25 mg PO BID [facility]; Protocol Last Admin: 02/04/23 08:22 Dose: 25 mg Nicotine Polacrilex (Nicotine Polacrilex 2 Mg Gum) 4 mg BUCCAL Q2H PRN PRN Reason: Nicotine Cravings Pt Own (Dulaglutide [Trulicity] 1.5 Mg/0 .5 Ml Pen Injector) 0.5 ml SUBCUT [facility]es@0900 [facility] Last Admin: 02/03/23 09:28 Dose: 0.5 ml Omeprazole (Omeprazole 20 Mg Capsule.) 20 mg PO DAILY@0630 [facility] Last Admin: 02/04/23 06:39 Dose: 20 mg Perphenazine (Perphenazine 4 Mg Tablet) 4 mg PO BID [facility] Last Admin: 02/04/23 08:22 Dose: 4 mg Senna/Docusate Sodium (Sennosides/Docusate Sodium Tablet) 1 tab PO DAILY [facility] Last Admin: 02/04/23 08:22 Dose: 1 tab Sertraline HCl (Sertraline Hcl 50 Mg Tablet) 50 mg PO DAILY [facility] Last Admin: 02/04/23 08:22 Dose: 50 mg Trazodone HCl (Trazodone Hcl 50 Mg Tablet) 50 mg PO BEDTIME MRX1 PRN PRN Reason: Insomnia Allergies Allergies Allergy/AdvReac Type Severity Reaction Status Date / Time Sulfa (Sulfonamide Allergy Intermediate PUFFY EYES Verified 04/22/22 06:14 Antibiotics) [SULFA (SULFONAMIDE ANTIBIOTICS)] Penicillins [PENICILLINS] Allergy Mild PT STATES Verified 04/22/22 06:14 NOTHING HAPPENS, ALLG LISTED ON TRANF SHEET Assessment & Plan Assessment & Plan (1) Schizophrenia: Qualifiers: Schizophrenia type: paranoid schizophrenia Qualified Code(s): F20.0 - Paranoid schizophrenia Status: Acute Code(s): F20.9 - Schizophrenia, unspecified Plan 01/23: increase VPA from 1000 mg QHS to 2000 mg QHS as of tonight. otherwise continue current mgmt. 01/24: appears unchanged from yesterday. malodorous, very poor hygiene, unkempt and disheveled. continue current mgmt. plan to increase VPA to 2500 mg in a day or two, as that is more likely to be a therapeutic dose. 01/25: increase VPA to 2500 mg QHS as of tonight. check level in 5 days. observe for resolution of mood and psychotic Sx. T/C increase clozapine dosing if mood stabilizer at therapeutic serum level is not effective. 01/26/2023: No changes to current plan 01/27: no changes 01/28: continue current mgmt. seems to have improved somewhat from admission. check labs weds juan m. 01/29: stabilizing. less affectively intense or labile. continue current mgmt. labs tomorrow juan m. 01/30: full range of affect today, spending more time out of room. remains in bed much of the time, however. labs tonight. 01/31: stable improvements. VPA level 43.6, pt declines increase. AH decreasing. continue current mgmt. 02/01 continue tx. 02/02 continue tx. 02/03 continue tx. 02/04: mood improved, AH much improved. continue current mgmt for now. begin to discuss dispo. Reason for continued inpatient stay Substantial Risk for: harm to self, inability to function and rapid decompensation Time Spent With Patient Time: Total time managing care of this patient today ____ minutes.
[2023-02-04] MEDS: Insulin Glargine,Hum.rec.anlog 100 UNIT/ML 10 ML VIAL 70 UNIT SUBCUT (21:39)
[2023-02-04] MEDS: cloZAPine 100 MG TABLET 300 MG PO (21:39)
[2023-02-04] MEDS: Divalproex Sodium ER 500 MG TAB.ER.24H 2500 MG PO (21:40)
[2023-02-04 21:45] VITALS: BP 117/62; PULSE 106; TEMP 36.3; O2SAT 99
[2023-02-04 22:07] LABS: Glucose, Whole Blood 252 mg/dL (60-115)
[2023-02-05] MEDS: Omeprazole 20 MG CAPSULE.DR PO (06:43)
[2023-02-05 08:31] VITALS: BP 131/60; PULSE 100; RESP 18; TEMP 36.8; O2SAT 97
[2023-02-05] MEDS: Sennosides/Docusate Sodium TABLET 1 TAB PO (08:32)
[2023-02-05] MEDS: cloZAPine 100 MG TABLET PO (08:32)
[2023-02-05] MEDS: Sertraline HCL 50 MG TABLET PO (08:33)
[2023-02-05] MEDS: Ascorbic Acid 500 MG TABLET PO (08:33)
[2023-02-05] MEDS: Metoprolol Tartrate 25 MG TABLET PO (08:33)
[2023-02-05] MEDS: metFORMIN HCl ER 500 MG TAB.ER.24H 1000 MG PO ×2 (08:33→21:06)
[2023-02-05] MEDS: Ferrous Sulfate 324 MG TABLET.DR PO (08:33)
[2023-02-05] MEDS: cloZAPine 25 MG TABLET PO (08:33)
[2023-02-05] MEDS: lisinopriL 10 MG TABLET PO (08:33)
[2023-02-05 08:36] LABS: Glucose, Whole Blood 111 mg/dL (60-115)
[2023-02-05] MEDS: Perphenazine 4 MG TABLET PO ×2 (10:39→21:07)
[2023-02-05 12:56] LABS: COVID-19 Test Positive (Negative); IDNOW Serial# 08D9AD1C
--- NOTE | 2023-02-05 16:24 | P.PNPSI_ITS ---
Subjective Subjective Date of Service: 02/05/23 Reason For Visit: Psychosis Interim History: no change in presentation. c/o feeling tired. raymundo and emotional. AH volume going down. per staff, mood depressed, affect blunted. disheveled, soiled bebeto. anx/dep 8. visible eves. sleeping well. Mental Status Exam Mental Status Exam Narrative: Appearance: wearing hospital gown, adequately groomed Behavior: cooperative Psychomotor: no agitation or retardation noted TP: linear TC: no delusions or paranoia expressed Mood: raymundo and emotional Affect: normo-intense, non-labile, constricted SI: none expressed HI: none expressed AH: much improved VH: none expressed Insight/judgment: fair x 2. Diagnostics Vital Signs (24Hr): Vital Signs - 24 hr 02/04/23 21:45 02/05/23 08:31 Temperature 97.3 F 98.2 F Pulse Rate 106 H 100 Respiratory Rate 18 Blood Pressure 117/62 131/60 Pulse Oximetry 99 97 Oxygen Delivery Method Room Air Room Air BMI result Body Mass Index 44.5 Labs 01/30/23 19:48 01/30/23 19:48 Labs: Laboratory Results - last 48 hr 02/03/23 02/04/23 02/04/23 21:02 08:07 21:36 POC Glucose 254 H 226 H 252 H COVID-19 ([facility]) COVID-19 Clin Com 02/05/23 02/05/23 08:13 12:20 POC Glucose 111 COVID-19 (ALYSSA) Positive A COVID-19 Clin Com See Note Medications Medications Current Medications Acetaminophen (Acetaminophen 325 Mg Tablet) 650 mg PO Q6H PRN PRN Reason: Headache/Pain Mild Scale (1-3) Al Hydroxide/Mg Hydroxide (Magnesium Hydrox/Alum Hydrox 30 Ml Oral.Susp) 30 ml PO Q6H PRN PRN Reason: Heartburn/Nausea Ascorbic Acid (Ascorbic Acid 500 Mg Tablet) 500 mg PO DAILY [facility] Last Admin: 02/05/23 08:33 Dose: 500 mg Clozapine (Clozapine 25 Mg Tablet) 25 mg PO DAILY [facility] Last Admin: 02/05/23 08:33 Dose: 25 mg Clozapine (Clozapine 100 Mg Tablet) 100 mg PO DAILY [facility] Last Admin: 02/05/23 08:32 Dose: 100 mg Clozapine (Clozapine 100 Mg Tablet) 300 mg PO BEDTIME [facility] Last Admin: 02/04/23 21:39 Dose: 300 mg Divalproex Sodium (Divalproex Sodium Er 500 Mg Tab.Er.24h) 2,500 mg PO BEDTIME [facility] Last Admin: 02/04/23 21:40 Dose: 2,500 mg Docusate Sodium (Docusate Sodium 100 Mg Capsule) 100 mg PO BID PRN PRN Reason: Constipation Ferrous Sulfate (Ferrous Sulfate 324 Mg Tablet.) 324 mg PO DAILY [facility] Last Admin: 02/05/23 08:33 Dose: 324 mg Hydroxyzine HCl (Hydroxyzine Hcl 25 Mg Tablet) 25 mg PO Q6H PRN PRN Reason: Anxiety Ibuprofen (Ibuprofen 600 Mg Tablet) 600 mg PO Q8H PRN PRN Reason: Pain, Mild (Pain Scale 1-3) Last Admin: 02/04/23 16:26 Dose: 600 mg Insulin Glargine (Insulin Glargine,Hum.Rec.Anlog 100 Unit/Ml 10 Ml Vial) 70 unit SUBCUT BEDTIME [facility] Last Admin: 02/04/23 21:39 Dose: 70 unit Lisinopril (Lisinopril 10 Mg Tablet) 10 mg PO DAILY [facility]; Protocol Last Admin: 02/05/23 08:33 Dose: 10 mg Magnesium Hydroxide (Milk Of Magnesia 30 Ml Oral.Susp) 30 ml PO DAILY PRN PRN Reason: Constipation Metformin HCl (Metformin Hcl Er 500 Mg Tab.Er.24h) 1,000 mg PO BID [facility] Last Admin: 02/05/23 08:33 Dose: 1,000 mg Metoprolol Tartrate (Metoprolol Tartrate 25 Mg Tablet) 25 mg PO BID [facility]; Protocol Last Admin: 02/05/23 08:33 Dose: 25 mg Nicotine Polacrilex (Nicotine Polacrilex 2 Mg Gum) 4 mg BUCCAL Q2H PRN PRN Reason: Nicotine Cravings Pt Own (Dulaglutide [Trulicity] 1.5 Mg/0 .5 Ml Pen Injector) 0.5 ml SUBCUT [facility]@0900 [facility] Last Admin: 02/03/23 09:28 Dose: 0.5 ml Omeprazole (Omeprazole 20 Mg Capsule.) 20 mg PO DAILY@0630 [facility] Last Admin: 02/05/23 06:43 Dose: 20 mg Perphenazine (Perphenazine 4 Mg Tablet) 4 mg PO BID [facility] Last Admin: 02/05/23 10:39 Dose: 4 mg Senna/Docusate Sodium (Sennosides/Docusate Sodium Tablet) 1 tab PO DAILY [facility] Last Admin: 02/05/23 08:32 Dose: 1 tab Sertraline HCl (Sertraline Hcl 50 Mg Tablet) 50 mg PO DAILY [facility] Last Admin: 02/05/23 08:33 Dose: 50 mg Trazodone HCl (Trazodone Hcl 50 Mg Tablet) 50 mg PO BEDTIME MRX1 PRN PRN Reason: Insomnia Allergies Allergies Allergy/AdvReac Type Severity Reaction Status Date / Time Sulfa (Sulfonamide Allergy Intermediate PUFFY EYES Verified 04/22/22 06:14 Antibiotics) [SULFA (SULFONAMIDE ANTIBIOTICS)] Penicillins [PENICILLINS] Allergy Mild PT STATES Verified 04/22/22 06:14 NOTHING HAPPENS, ALLG LISTED ON TRANF SHEET Assessment & Plan Assessment & Plan (1) Schizophrenia: Qualifiers: Schizophrenia type: paranoid schizophrenia Qualified Code(s): F20.0 - Paranoid schizophrenia Status: Acute Code(s): F20.9 - Schizophrenia, unspecified Plan 01/23: increase VPA from 1000 mg QHS to 2000 mg QHS as of tonight. otherwise continue current mgmt. 01/24: appears unchanged from yesterday. malodorous, very poor hygiene, unkempt and disheveled. continue current mgmt. plan to increase VPA to 2500 mg in a day or two, as that is more likely to be a therapeutic dose. 01/25: increase VPA to 2500 mg QHS as of tonight. check level in 5 days. observe for resolution of mood and psychotic Sx. T/C increase clozapine dosing if mood stabilizer at therapeutic serum level is not effective. 01/26/2023: No changes to current plan 01/27: no changes 01/28: continue current mgmt. seems to have improved somewhat from admission. check labs weds juan m. 01/29: stabilizing. less affectively intense or labile. continue current mgmt. labs tomorrow juan m. 01/30: full range of affect today, spending more time out of room. remains in bed much of the time, however. labs tonight. 01/31: stable improvements. VPA level 43.6, pt declines increase. AH decreasing. continue current mgmt. 02/01 continue tx. 02/02 continue tx. 02/03 continue tx. 02/04: mood improved, AH much improved. continue current mgmt for now. begin to discuss dispo. 02/05: COVID POS. continue current mgmt. in isolation. Reason for continued inpatient stay Substantial Risk for: inability to function and rapid decompensation Time Spent With Patient Time: Total time managing care of this patient today __25__ minutes.
[2023-02-05] MEDS: Divalproex Sodium ER 500 MG TAB.ER.24H 2500 MG PO (21:06)
[2023-02-05] MEDS: cloZAPine 100 MG TABLET 300 MG PO (21:07)
[2023-02-05] MEDS: Insulin Glargine,Hum.rec.anlog 100 UNIT/ML 10 ML VIAL 70 UNIT SUBCUT (21:15)
[2023-02-05 22:21] VITALS: BP 107/56; PULSE 93; RESP 16; TEMP 36.2; O2SAT 96
[2023-02-05 22:38] LABS: Glucose, Whole Blood 199 mg/dL (60-115)
[2023-02-06] MEDS: Omeprazole 20 MG CAPSULE.DR PO (06:45)
[2023-02-06 07:50] LABS: Neut%MD 77.1 %; Neutrophils Absolute Auto 6.3 x10*3/uL (2.0-8.3); WBCANC 8.2 X10*3/uL
[2023-02-06 08:07] LABS: Creatinine Clr Calc Pharmacy 118.7; Estimated Glomerular Filt Rate > 60
[2023-02-06 08:45] VITALS: BP 100/62; PULSE 100; RESP 18; TEMP 38.2; O2SAT 93
[2023-02-06] MEDS: lisinopriL 10 MG TABLET PO (08:59)
[2023-02-06] MEDS: Metoprolol Tartrate 25 MG TABLET PO ×2 (08:59→21:22)
[2023-02-06] MEDS: Ferrous Sulfate 324 MG TABLET.DR PO (08:59)
[2023-02-06] MEDS: metFORMIN HCl ER 500 MG TAB.ER.24H 1000 MG PO ×2 (08:59→21:22)
[2023-02-06] MEDS: Sertraline HCL 50 MG TABLET PO (08:59)
[2023-02-06] MEDS: Perphenazine 4 MG TABLET PO ×2 (08:59→21:22)
[2023-02-06] MEDS: cloZAPine 25 MG TABLET PO (08:59)
[2023-02-06] MEDS: Sennosides/Docusate Sodium TABLET 1 TAB PO (08:59)
[2023-02-06] MEDS: Ascorbic Acid 500 MG TABLET PO (08:59)
[2023-02-06] MEDS: cloZAPine 100 MG TABLET PO (08:59)
[2023-02-06 09:19] LABS: Glucose, Whole Blood 177 mg/dL (60-115)
[2023-02-06] MEDS: Throat Lozenge, Medicated LOZENGE 1 LOZENGE MUCOUS MEM ×3 (10:25→21:22)
[2023-02-06] MEDS: Acetaminophen 325 MG TABLET 650 MG PO ×2 (10:55→21:21)
[2023-02-06 14:00] VITALS: TEMP 37.4
--- NOTE | 2023-02-06 16:16 | P.PNPSI_ITS ---
Subjective Subjective Date of Service: 02/06/23 Reason For Visit: Psychosis Interim History: calm, cooperative. reports stable Sx, perhaps feeling more negative and slightly exacerbated since learning of COVID Dx. c/o sore throat, cough, sneeze, congestion. per staff, mood depressed and anxious. AH telling her she is no good and worthless. denies CAH. napping. slept well. Mental Status Exam Mental Status Exam Narrative: Appearance: wearing hospital gown, adequately groomed Behavior: cooperative Psychomotor: no agitation or retardation noted TP: linear TC: no delusions or paranoia expressed Mood: raymundo and emotional Affect: normo-intense, non-labile, constricted SI: none expressed HI: none expressed AH: much improved VH: none expressed Insight/judgment: fair x 2. Diagnostics Vital Signs (24Hr): Vital Signs - 24 hr 02/05/23 22:21 02/06/23 08:45 Temperature 97.1 F 100.8 F H Pulse Rate 93 100 Respiratory Rate 16 18 Blood Pressure 107/56 L 100/62 Pulse Oximetry 96 93 Oxygen Delivery Method Room Air Room Air BMI result Body Mass Index 44.5 Labs 01/30/23 19:48 02/06/23 06:58 Labs: Laboratory Results - last 48 hr 02/04/23 02/05/23 02/05/23 21:36 08:13 12:20 Absolute Neuts (auto) Creatinine Estim Creat Clear Calc Estimated GFR POC Glucose 252 H 111 COVID-19 (ALYSSA) Positive A COVID-19 Clin Com See Note 02/05/23 02/06/23 02/06/23 22:32 06:58 08:57 Absolute Neuts (auto) 6.3 Creatinine 0.73 Estim Creat Clear Calc 118.7 Estimated GFR > 60 POC Glucose 199 H 177 H COVID-19 (ALYSSA) COVID-19 Clin Com Medications Medications Current Medications Acetaminophen (Acetaminophen 325 Mg Tablet) 650 mg PO Q6H PRN PRN Reason: Headache/Pain Mild(1-3); fever Last Admin: 02/06/23 10:55 Dose: 650 mg Al Hydroxide/Mg Hydroxide (Magnesium Hydrox/Alum Hydrox 30 Ml Oral.Susp) 30 ml PO Q6H PRN PRN Reason: Heartburn/Nausea Ascorbic Acid (Ascorbic Acid 500 Mg Tablet) 500 mg PO DAILY [facility] Last Admin: 02/06/23 08:59 Dose: 500 mg Benzocaine (Throat Lozenge, Medicated Lozenge) 1 lozenge MUCOUS MEM Q1H PRN PRN Reason: Sore Throat Last Admin: 02/06/23 10:25 Dose: 1 lozenge Clozapine (Clozapine 25 Mg Tablet) 25 mg PO DAILY [facility] Last Admin: 02/06/23 08:59 Dose: 25 mg Clozapine (Clozapine 100 Mg Tablet) 100 mg PO DAILY [facility] Last Admin: 02/06/23 08:59 Dose: 100 mg Clozapine (Clozapine 100 Mg Tablet) 300 mg PO BEDTIME [facility] Last Admin: 02/05/23 21:07 Dose: 300 mg Divalproex Sodium (Divalproex Sodium Er 500 Mg Tab.Er.24h) 2,500 mg PO BEDTIME [facility] Last Admin: 02/05/23 21:06 Dose: 2,500 mg Docusate Sodium (Docusate Sodium 100 Mg Capsule) 100 mg PO BID PRN PRN Reason: Constipation Ferrous Sulfate (Ferrous Sulfate 324 Mg Tablet.Dr) 324 mg PO DAILY [facility] Last Admin: 02/06/23 08:59 Dose: 324 mg Hydroxyzine HCl (Hydroxyzine Hcl 25 Mg Tablet) 25 mg PO Q6H PRN PRN Reason: Anxiety Ibuprofen (Ibuprofen 600 Mg Tablet) 600 mg PO Q8H PRN PRN Reason: Pain, Mild (Pain Scale 1-3) Last Admin: 02/04/23 16:26 Dose: 600 mg Insulin Glargine (Insulin Glargine,Hum.Rec.Anlog 100 Unit/Ml 10 Ml Vial) 70 unit SUBCUT BEDTIME [facility] Last Admin: 02/05/23 21:15 Dose: 70 unit Lisinopril (Lisinopril 10 Mg Tablet) 10 mg PO DAILY [facility]; Protocol Last Admin: 02/06/23 08:59 Dose: 10 mg Magnesium Hydroxide (Milk Of Magnesia 30 Ml Oral.Susp) 30 ml PO DAILY PRN PRN Reason: Constipation Metformin HCl (Metformin Hcl Er 500 Mg Tab.Er.24h) 1,000 mg PO BID [facility] Last Admin: 02/06/23 08:59 Dose: 1,000 mg Metoprolol Tartrate (Metoprolol Tartrate 25 Mg Tablet) 25 mg PO BID [facility]; Protocol Last Admin: 02/06/23 08:59 Dose: 25 mg Nicotine Polacrilex (Nicotine Polacrilex 2 Mg Gum) 4 mg BUCCAL Q2H PRN PRN Reason: Nicotine Cravings Pt Own (Dulaglutide [Trulicity] 1.5 Mg/0 .5 Ml Pen Injector) 0.5 ml SUBCUT Cortes@0900 [facility] Last Admin: 02/03/23 09:28 Dose: 0.5 ml Omeprazole (Omeprazole 20 Mg Capsule.Dr) 20 mg PO DAILY@0630 [facility] Last Admin: 02/06/23 06:45 Dose: 20 mg Perphenazine (Perphenazine 4 Mg Tablet) 4 mg PO BID [facility] Last Admin: 02/06/23 08:59 Dose: 4 mg Senna/Docusate Sodium (Sennosides/Docusate Sodium Tablet) 1 tab PO DAILY [facility] Last Admin: 02/06/23 08:59 Dose: 1 tab Sertraline HCl (Sertraline Hcl 50 Mg Tablet) 50 mg PO DAILY [facility] Last Admin: 02/06/23 08:59 Dose: 50 mg Trazodone HCl (Trazodone Hcl 50 Mg Tablet) 50 mg PO BEDTIME MRX1 PRN PRN Reason: Insomnia Allergies Allergies Allergy/AdvReac Type Severity Reaction Status Date / Time Sulfa (Sulfonamide Allergy Intermediate PUFFY EYES Verified 04/22/22 06:14 Antibiotics) [SULFA (SULFONAMIDE ANTIBIOTICS)] Penicillins [PENICILLINS] Allergy Mild PT STATES Verified 04/22/22 06:14 NOTHING HAPPENS, ALLG LISTED ON TRANF SHEET Assessment & Plan Assessment & Plan (1) Schizophrenia: Qualifiers: Schizophrenia type: paranoid schizophrenia Qualified Code(s): F20.0 - Paranoid schizophrenia Status: Acute Code(s): F20.9 - Schizophrenia, unspecified Plan 01/23: increase VPA from 1000 mg QHS to 2000 mg QHS as of tonight. otherwise continue current mgmt. 01/24: appears unchanged from yesterday. malodorous, very poor hygiene, unkempt and disheveled. continue current mgmt. plan to increase VPA to 2500 mg in a day or two, as that is more likely to be a therapeutic dose. 01/25: increase VPA to 2500 mg QHS as of tonight. check level in 5 days. observe for resolution of mood and psychotic Sx. T/C increase clozapine dosing if mood stabilizer at therapeutic serum level is not effective. 01/26/2023: No changes to current plan 01/27: no changes 01/28: continue current mgmt. seems to have improved somewhat from admission. check labs weds juan m. 01/29: stabilizing. less affectively intense or labile. continue current mgmt. labs tomorrow juan m. 01/30: full range of affect today, spending more time out of room. remains in bed much of the time, however. labs tonight. 01/31: stable improvements. VPA level 43.6, pt declines increase. AH decreasing. continue current mgmt. 02/01 continue tx. 02/02 continue tx. 02/03 continue tx. 02/04: mood improved, AH much improved. continue current mgmt for now. begin to discuss dispo. 02/05: COVID POS. continue current mgmt. in isolation. 02/06: no substantial change in status. mild URI Sx. continue current mgmt. Reason for continued inpatient stay Substantial Risk for: inability to function and rapid decompensation Time Spent With Patient Time: Total time managing care of this patient today __25__ minutes.
[2023-02-06 17:30] VITALS: TEMP 37.9
[2023-02-06 20:43] LABS: Glucose, Whole Blood 215 mg/dL (60-115)
[2023-02-06 20:55] VITALS: BP 107/65; PULSE 102; RESP 18; TEMP 37.3; O2SAT 97
[2023-02-06] MEDS: cloZAPine 100 MG TABLET 300 MG PO (21:21)
[2023-02-06] MEDS: Divalproex Sodium ER 500 MG TAB.ER.24H 2500 MG PO (21:22)
[2023-02-06] MEDS: Insulin Glargine,Hum.rec.anlog 100 UNIT/ML 10 ML VIAL 70 UNIT SUBCUT (21:23)
[2023-02-07] MEDS: Omeprazole 20 MG CAPSULE.DR PO (06:53)
[2023-02-07 09:00] VITALS: BP 96/54; PULSE 100; RESP 18; TEMP 37.1; O2SAT 94
[2023-02-07] MEDS: Sennosides/Docusate Sodium TABLET 1 TAB PO (09:05)
[2023-02-07] MEDS: Perphenazine 4 MG TABLET PO ×2 (09:05→22:48)
[2023-02-07] MEDS: cloZAPine 100 MG TABLET PO ×2 (09:05→09:19)
[2023-02-07] MEDS: metFORMIN HCl ER 500 MG TAB.ER.24H 1000 MG PO ×2 (09:05→22:48)
[2023-02-07] MEDS: Ferrous Sulfate 324 MG TABLET.DR PO (09:05)
[2023-02-07] MEDS: Sertraline HCL 50 MG TABLET PO (09:05)
[2023-02-07] MEDS: Metoprolol Tartrate 25 MG TABLET PO ×2 (09:09→22:55)
[2023-02-07] MEDS: Acetaminophen 325 MG TABLET 650 MG PO ×2 (09:19→22:49)
[2023-02-07] MEDS: cloZAPine 25 MG TABLET PO (09:20)
[2023-02-07] MEDS: Ascorbic Acid 500 MG TABLET PO (09:20)
[2023-02-07] MEDS: Throat Lozenge, Medicated LOZENGE 1 LOZENGE MUCOUS MEM ×2 (09:25→22:49)
[2023-02-07] MEDS: Ondansetron ODT 4 MG TAB.RAPDIS 8 MG TRANSLINGU (13:10)
[2023-02-07 13:20] LABS: Glucose, Whole Blood 166 mg/dL (60-115)
--- NOTE | 2023-02-07 14:30 | P.PNPSI_ITS ---
Subjective Subjective Date of Service: 02/07/23 Reason For Visit: Psychosis Interim History: sweating, uncomfortable. no questions for MD, content with plan to continue current supportive care and med regimen until she is through [facility]. per staff, T 100.8. sore throat. body aches. +AH. sleeping well. vomited afternoon 02/07, zofran and paxlovid started. Mental Status Exam Mental Status Exam Narrative: Appearance: wearing hospital gown, adequately groomed Behavior: cooperative Psychomotor: no agitation or retardation noted TP: linear TC: no delusions or paranoia expressed Mood: not assessed Affect: normo-intense, non-labile, constricted SI: none expressed HI: none expressed AH: improved VH: none expressed Insight/judgment: fair x 2. Diagnostics Vital Signs (24Hr): Vital Signs - 24 hr 02/06/23 17:30 02/06/23 20:55 02/07/23 09:00 Temperature 100.3 F 99.1 F 98.7 F Pulse Rate 102 H 100 Respiratory Rate 18 18 Blood Pressure 107/65 96/54 L Pulse Oximetry 97 94 Oxygen Delivery Method Room Air Room Air BMI result Body Mass Index 44.5 Labs 01/30/23 19:48 02/06/23 06:58 Labs: Laboratory Results - last 48 hr 02/05/23 02/06/23 02/06/23 22:32 06:58 08:57 Absolute Neuts (auto) 6.3 Creatinine 0.73 Estim Creat Clear Calc 118.7 Estimated GFR > 60 POC Glucose 199 H 177 H 02/06/23 02/07/23 20:27 13:15 Absolute Neuts (auto) Creatinine Estim Creat Clear Calc Estimated GFR POC Glucose 215 H 166 H Medications Medications Current Medications Acetaminophen (Acetaminophen 325 Mg Tablet) 650 mg PO Q6H PRN PRN Reason: Headache/Pain Mild(1-3); fever Last Admin: 02/07/23 09:19 Dose: 650 mg Al Hydroxide/Mg Hydroxide (Magnesium Hydrox/Alum Hydrox 30 Ml Oral.Susp) 30 ml PO Q6H PRN PRN Reason: Heartburn/Nausea Ascorbic Acid (Ascorbic Acid 500 Mg Tablet) 500 mg PO DAILY [facility] Last Admin: 02/07/23 09:20 Dose: 500 mg Benzocaine (Throat Lozenge, Medicated Lozenge) 1 lozenge MUCOUS MEM Q1H PRN PRN Reason: Sore Throat Last Admin: 02/07/23 09:25 Dose: 1 lozenge Clozapine (Clozapine 25 Mg Tablet) 25 mg PO DAILY [facility] Last Admin: 02/07/23 09:20 Dose: 25 mg Clozapine (Clozapine 100 Mg Tablet) 100 mg PO DAILY [facility] Last Admin: 02/07/23 09:19 Dose: 100 mg Clozapine (Clozapine 100 Mg Tablet) 300 mg PO BEDTIME [facility] Last Admin: 02/06/23 21:21 Dose: 300 mg Divalproex Sodium (Divalproex Sodium Er 500 Mg Tab.Er.24h) 2,500 mg PO BEDTIME [facility] Last Admin: 02/06/23 21:22 Dose: 2,500 mg Docusate Sodium (Docusate Sodium 100 Mg Capsule) 100 mg PO BID PRN PRN Reason: Constipation Ferrous Sulfate (Ferrous Sulfate 324 Mg Tablet.Dr) 324 mg PO DAILY [facility] Last Admin: 02/07/23 09:05 Dose: 324 mg Hydroxyzine HCl (Hydroxyzine Hcl 25 Mg Tablet) 25 mg PO Q6H PRN PRN Reason: Anxiety Ibuprofen (Ibuprofen 600 Mg Tablet) 600 mg PO Q8H PRN PRN Reason: Pain, Mild (Pain Scale 1-3) Last Admin: 02/04/23 16:26 Dose: 600 mg Insulin Glargine (Insulin Glargine,Hum.Rec.Anlog 100 Unit/Ml 10 Ml Vial) 70 unit SUBCUT BEDTIME [facility] Last Admin: 02/06/23 21:23 Dose: 70 unit Lisinopril (Lisinopril 10 Mg Tablet) 10 mg PO DAILY [facility]; Protocol Last Admin: 02/07/23 09:21 Dose: Not Given Magnesium Hydroxide (Milk Of Magnesia 30 Ml Oral.Susp) 30 ml PO DAILY PRN PRN Reason: Constipation Metformin HCl (Metformin Hcl Er 500 Mg Tab.Er.24h) 1,000 mg PO BID [facility] Last Admin: 02/07/23 09:05 Dose: 1,000 mg Metoprolol Tartrate (Metoprolol Tartrate 25 Mg Tablet) 25 mg PO BID [facility]; Protocol Last Admin: 02/07/23 09:09 Dose: 25 mg Nicotine Polacrilex (Nicotine Polacrilex 2 Mg Gum) 4 mg BUCCAL Q2H PRN PRN Reason: Nicotine Cravings Nirmatrelvir/Ritonavir (Nirmatrelvir/Ritonavir 300/100 3 Tab Dose) 3 tab PO BID [facility] Stop: 02/11/23 21:01 Last Admin: 02/07/23 14:20 Dose: 3 tab Pt Own (Dulaglutide [Trulicity] 1.5 Mg/0 .5 Ml Pen Injector) 0.5 ml SUBCUT Cortes@0900 [facility] Last Admin: 02/03/23 09:28 Dose: 0.5 ml Omeprazole (Omeprazole 20 Mg Capsule.Dr) 20 mg PO DAILY@0630 [facility] Last Admin: 02/07/23 06:53 Dose: 20 mg Ondansetron HCl (Ondansetron Odt 4 Mg Tab.Rapdis) 4 mg TRANSLINGU Q6H PRN PRN Reason: Nausea and Vomiting Perphenazine (Perphenazine 4 Mg Tablet) 4 mg PO BID [facility] Last Admin: 02/07/23 09:05 Dose: 4 mg Senna/Docusate Sodium (Sennosides/Docusate Sodium Tablet) 1 tab PO DAILY [facility] Last Admin: 02/07/23 09:05 Dose: 1 tab Sertraline HCl (Sertraline Hcl 50 Mg Tablet) 50 mg PO DAILY [facility] Last Admin: 02/07/23 09:05 Dose: 50 mg Trazodone HCl (Trazodone Hcl 50 Mg Tablet) 50 mg PO BEDTIME MRX1 PRN PRN Reason: Insomnia Allergies Allergies Allergy/AdvReac Type Severity Reaction Status Date / Time Sulfa (Sulfonamide Allergy Intermediate PUFFY EYES Verified 04/22/22 06:14 Antibiotics) [SULFA (SULFONAMIDE ANTIBIOTICS)] Penicillins [PENICILLINS] Allergy Mild PT STATES Verified 04/22/22 06:14 NOTHING HAPPENS, ALLG LISTED ON TRANF SHEET Assessment & Plan Assessment & Plan (1) Schizophrenia: Qualifiers: Schizophrenia type: paranoid schizophrenia Qualified Code(s): F20.0 - Paranoid schizophrenia Status: Acute Code(s): F20.9 - Schizophrenia, unspecified Plan 01/23: increase VPA from 1000 mg QHS to 2000 mg QHS as of tonight. otherwise continue current mgmt. 01/24: appears unchanged from yesterday. malodorous, very poor hygiene, unkempt and disheveled. continue current mgmt. plan to increase VPA to 2500 mg in a day or two, as that is more likely to be a therapeutic dose. 01/25: increase VPA to 2500 mg QHS as of tonight. check level in 5 days. observe for resolution of mood and psychotic Sx. T/C increase clozapine dosing if mood stabilizer at therapeutic serum level is not effective. 01/26/2023: No changes to current plan 01/27: no changes 01/28: continue current mgmt. seems to have improved somewhat from admission. check labs weds juan m. 01/29: stabilizing. less affectively intense or labile. continue current mgmt. labs tomorrow juan m. 01/30: full range of affect today, spending more time out of room. remains in bed much of the time, however. labs tonight. 01/31: stable improvements. VPA level 43.6, pt declines increase. AH decreasing. continue current mgmt. 02/01 continue tx. 02/02 continue tx. 02/03 continue tx. 02/04: mood improved, AH much improved. continue current mgmt for now. begin to discuss dispo. 02/05: COVID POS. continue current mgmt. in isolation. 02/06: no substantial change in status. mild URI Sx. continue current mgmt. 02/07: febrile, aches, vomiting. paxlovid started x 5 days. otherwise continue current mgmt. Reason for continued inpatient stay Substantial Risk for: inability to function and rapid decompensation Time Spent With Patient Time: Total time managing care of this patient today __35__ minutes.
[2023-02-07] MEDS: Ondansetron ODT 4 MG TAB.RAPDIS TRANSLINGU (17:46)
[2023-02-07 20:30] VITALS: PULSE 110; RESP 20; TEMP 38.4; O2SAT 97
[2023-02-07 21:04] LABS: Glucose, Whole Blood 187 mg/dL (60-115)
[2023-02-07 22:30] VITALS: BP 113/79; PULSE 114; RESP 20; TEMP 37.8; O2SAT 97
[2023-02-07] MEDS: Insulin Glargine,Hum.rec.anlog 100 UNIT/ML 10 ML VIAL 70 UNIT SUBCUT (22:45)
[2023-02-07] MEDS: Divalproex Sodium ER 500 MG TAB.ER.24H 2500 MG PO (22:47)
[2023-02-07] MEDS: cloZAPine 100 MG TABLET 300 MG PO (22:48)
[2023-02-07] MEDS: Ibuprofen 600 MG TABLET PO (22:49)
[2023-02-08 08:00] VITALS: BP 114/60; PULSE 95; RESP 16; TEMP 36.1; O2SAT 96
[2023-02-08] MEDS: metFORMIN HCl ER 500 MG TAB.ER.24H 1000 MG PO ×2 (08:58→22:18)
[2023-02-08] MEDS: cloZAPine 100 MG TABLET PO (08:59)
[2023-02-08] MEDS: lisinopriL 10 MG TABLET PO (08:59)
[2023-02-08] MEDS: cloZAPine 25 MG TABLET PO (08:59)
[2023-02-08] MEDS: Sennosides/Docusate Sodium TABLET 1 TAB PO (09:00)
[2023-02-08] MEDS: Metoprolol Tartrate 25 MG TABLET PO (09:00)
[2023-02-08] MEDS: Ferrous Sulfate 324 MG TABLET.DR PO (09:00)
[2023-02-08] MEDS: Perphenazine 4 MG TABLET PO ×2 (09:00→22:18)
[2023-02-08] MEDS: Ascorbic Acid 500 MG TABLET PO (09:00)
[2023-02-08] MEDS: Sertraline HCL 50 MG TABLET PO (09:00)
[2023-02-08] MEDS: Omeprazole 20 MG CAPSULE.DR PO (09:55)
[2023-02-08] MEDS: Acetaminophen 325 MG TABLET 650 MG PO (09:58)
[2023-02-08] MEDS: Throat Lozenge, Medicated LOZENGE 1 LOZENGE MUCOUS MEM ×2 (09:59→16:11)
[2023-02-08 10:06] LABS: Glucose, Whole Blood 171 mg/dL (60-115)
--- NOTE | 2023-02-08 14:52 | HO.PSYCHPN ---
Subjective Subjective Date of Service: 02/08/23 Reason For Visit: Psychosis Interim History: calm, cooperative. in bed, c/o physical Sx of COVID. no change in status. per staff, poor PO intake. vomiting. started paxlovid. T 101.1 yesterday. pulse 110s. satting upper 90s. sleeps well. Mental Status Exam Mental Status Exam Narrative: Appearance: wearing hospital gown, adequately groomed Behavior: cooperative Psychomotor: no agitation or retardation noted TP: linear TC: no delusions or paranoia expressed Mood: not assessed Affect: normo-intense, non-labile, constricted SI: none expressed HI: none expressed AH: improved VH: none expressed Insight/judgment: fair x 2. Diagnostics Vital Signs (24Hr): Vital Signs - 24 hr 02/07/23 20:30 02/07/23 22:30 02/08/23 06:00 Temperature 101.1 F H 100.1 F 97.0 F Pulse Rate 110 H 114 H 95 Respiratory Rate 20 20 16 Blood Pressure 113/79 114/60 Pulse Oximetry 97 97 96 Oxygen Delivery Method Room Air Room Air Room Air BMI result Body Mass Index 44.5 Labs 01/30/23 19:48 02/06/23 06:58 Labs: Laboratory Results - last 48 hr 02/06/23 02/07/23 02/07/23 20:27 13:15 20:52 POC Glucose 215 H 166 H 187 H 02/08/23 09:53 POC Glucose 171 H Medications Medications Current Medications Acetaminophen (Acetaminophen 325 Mg Tablet) 650 mg PO Q6H PRN PRN Reason: Headache/Pain Mild(1-3); fever Last Admin: 02/08/23 09:58 Dose: 650 mg Al Hydroxide/Mg Hydroxide (Magnesium Hydrox/Alum Hydrox 30 Ml Oral.Susp) 30 ml PO Q6H PRN PRN Reason: Heartburn/Nausea Ascorbic Acid (Ascorbic Acid 500 Mg Tablet) 500 mg PO DAILY [facility] Last Admin: 02/08/23 09:00 Dose: 500 mg Benzocaine (Throat Lozenge, Medicated Lozenge) 1 lozenge MUCOUS MEM Q1H PRN PRN Reason: Sore Throat Last Admin: 02/08/23 09:59 Dose: 1 lozenge Clozapine (Clozapine 25 Mg Tablet) 25 mg PO DAILY [facility] Last Admin: 02/08/23 08:59 Dose: 25 mg Clozapine (Clozapine 100 Mg Tablet) 100 mg PO DAILY [facility] Last Admin: 02/08/23 08:59 Dose: 100 mg Clozapine (Clozapine 100 Mg Tablet) 300 mg PO BEDTIME [facility] Last Admin: 02/07/23 22:48 Dose: 300 mg Divalproex Sodium (Divalproex Sodium Er 500 Mg Tab.Er.24h) 2,500 mg PO BEDTIME [facility] Last Admin: 02/07/23 22:47 Dose: 2,500 mg Docusate Sodium (Docusate Sodium 100 Mg Capsule) 100 mg PO BID PRN PRN Reason: Constipation Ferrous Sulfate (Ferrous Sulfate 324 Mg Tablet.Dr) 324 mg PO DAILY [facility] Last Admin: 02/08/23 09:00 Dose: 324 mg Hydroxyzine HCl (Hydroxyzine Hcl 25 Mg Tablet) 25 mg PO Q6H PRN PRN Reason: Anxiety Ibuprofen (Ibuprofen 600 Mg Tablet) 600 mg PO Q8H PRN PRN Reason: Pain, Mild (Pain Scale 1-3) Last Admin: 02/07/23 22:49 Dose: 600 mg Insulin Glargine (Insulin Glargine,Hum.Rec.Anlog 100 Unit/Ml 10 Ml Vial) 70 unit SUBCUT BEDTIME [facility] Last Admin: 02/07/23 22:45 Dose: 70 unit Lisinopril (Lisinopril 10 Mg Tablet) 10 mg PO DAILY [facility]; Protocol Last Admin: 02/08/23 08:59 Dose: 10 mg Magnesium Hydroxide (Milk Of Magnesia 30 Ml Oral.Susp) 30 ml PO DAILY PRN PRN Reason: Constipation Metformin HCl (Metformin Hcl Er 500 Mg Tab.Er.24h) 1,000 mg PO BID [facility] Last Admin: 02/08/23 08:58 Dose: 1,000 mg Metoprolol Tartrate (Metoprolol Tartrate 25 Mg Tablet) 25 mg PO BID [facility]; Protocol Last Admin: 02/08/23 09:00 Dose: 25 mg Nicotine Polacrilex (Nicotine Polacrilex 2 Mg Gum) 4 mg BUCCAL Q2H PRN PRN Reason: Nicotine Cravings Nirmatrelvir/Ritonavir (Nirmatrelvir/Ritonavir 300/100 3 Tab Dose) 3 tab PO BID [facility] Stop: 02/11/23 21:01 Last Admin: 02/08/23 08:57 Dose: 3 tab Pt Own (Dulaglutide [Trulicity] 1.5 Mg/0 .5 Ml Pen Injector) 0.5 ml SUBCUT Cortes@09 [facility] Last Admin: 02/03/23 09:28 Dose: 0.5 ml Omeprazole (Omeprazole 20 Mg Capsule.Dr) 20 mg PO DAILY@0630 [facility] Last Admin: 02/08/23 09:55 Dose: 20 mg Ondansetron HCl (Ondansetron Odt 4 Mg Tab.Rapdis) 4 mg TRANSLINGU Q6H PRN PRN Reason: Nausea and Vomiting Last Admin: 02/07/23 17:46 Dose: 4 mg Perphenazine (Perphenazine 4 Mg Tablet) 4 mg PO BID [facility] Last Admin: 02/08/23 09:00 Dose: 4 mg Senna/Docusate Sodium (Sennosides/Docusate Sodium Tablet) 1 tab PO DAILY [facility] Last Admin: 02/08/23 09:00 Dose: 1 tab Sertraline HCl (Sertraline Hcl 50 Mg Tablet) 50 mg PO DAILY [facility] Last Admin: 02/08/23 09:00 Dose: 50 mg Trazodone HCl (Trazodone Hcl 50 Mg Tablet) 50 mg PO BEDTIME MRX1 PRN PRN Reason: Insomnia Allergies Allergies Allergy/AdvReac Type Severity Reaction Status Date / Time Sulfa (Sulfonamide Allergy Intermediate PUFFY EYES Verified 04/22/22 06:14 Antibiotics) [SULFA (SULFONAMIDE ANTIBIOTICS)] Penicillins [PENICILLINS] Allergy Mild PT STATES Verified 04/22/22 06:14 NOTHING HAPPENS, ALLG LISTED ON TRANF SHEET Assessment & Plan Assessment & Plan (1) Schizophrenia: Qualifiers: Schizophrenia type: paranoid schizophrenia Qualified Code(s): F20.0 - Paranoid schizophrenia Status: Acute Code(s): F20.9 - Schizophrenia, unspecified Plan 01/23: increase VPA from 1000 mg QHS to 2000 mg QHS as of tonight. otherwise continue current mgmt. 01/24: appears unchanged from yesterday. malodorous, very poor hygiene, unkempt and disheveled. continue current mgmt. plan to increase VPA to 2500 mg in a day or two, as that is more likely to be a therapeutic dose. 01/25: increase VPA to 2500 mg QHS as of tonight. check level in 5 days. observe for resolution of mood and psychotic Sx. T/C increase clozapine dosing if mood stabilizer at therapeutic serum level is not effective. 01/26/2023: No changes to current plan 01/27: no changes 01/28: continue current mgmt. seems to have improved somewhat from admission. check labs weds juan m. 01/29: stabilizing. less affectively intense or labile. continue current mgmt. labs tomorrow juan m. 01/30: full range of affect today, spending more time out of room. remains in bed much of the time, however. labs tonight. 01/31: stable improvements. VPA level 43.6, pt declines increase. AH decreasing. continue current mgmt. 02/01 continue tx. 02/02 continue tx. 02/03 continue tx. 02/04: mood improved, AH much improved. continue current mgmt for now. begin to discuss dispo. 02/05: COVID POS. continue current mgmt. in isolation. 02/06: no substantial change in status. mild URI Sx. continue current mgmt. 02/07: febrile, aches, vomiting. paxlovid started x 5 days. otherwise continue current mgmt. 02/08: febrile, symptomatic of COVID. continue paxlovid and supportive care. aware paxlovid may alter serum levels of medications and more time may be required for psych stabilization. Reason for continued inpatient stay Substantial Risk for: inability to function and rapid decompensation Time Spent With Patient Time: Total time managing care of this patient today ____ minutes.
[2023-02-08 15:20] VITALS: BP 109/56; PULSE 90; RESP 17; TEMP 36.2; O2SAT 94
[2023-02-08] MEDS: Ondansetron ODT 4 MG TAB.RAPDIS TRANSLINGU (16:11)
[2023-02-08] MEDS: Ibuprofen 600 MG TABLET PO (16:11)
[2023-02-08 20:32] LABS: Glucose, Whole Blood 210 mg/dL (60-115)
[2023-02-08 21:49] VITALS: BP 118/58; PULSE 97; RESP 16; TEMP 36.5; O2SAT 97
[2023-02-08] MEDS: Divalproex Sodium ER 500 MG TAB.ER.24H 2500 MG PO (22:17)
[2023-02-08] MEDS: cloZAPine 100 MG TABLET 300 MG PO (22:18)
[2023-02-08] MEDS: Insulin Glargine,Hum.rec.anlog 100 UNIT/ML 10 ML VIAL 70 UNIT SUBCUT (22:19)
[2023-02-09 09:52] VITALS: BP 110/56; PULSE 106; RESP 16; TEMP 37.2; O2SAT 97
[2023-02-09] MEDS: cloZAPine 100 MG TABLET PO (09:52)
[2023-02-09] MEDS: Perphenazine 4 MG TABLET PO ×2 (09:52→21:12)
[2023-02-09] MEDS: Metoprolol Tartrate 25 MG TABLET PO ×2 (09:52→21:12)
[2023-02-09] MEDS: cloZAPine 25 MG TABLET PO (09:52)
[2023-02-09] MEDS: Sennosides/Docusate Sodium TABLET 1 TAB PO (09:52)
[2023-02-09] MEDS: Omeprazole 20 MG CAPSULE.DR PO (09:52)
[2023-02-09] MEDS: Ascorbic Acid 500 MG TABLET PO (09:52)
[2023-02-09] MEDS: lisinopriL 10 MG TABLET PO (09:52)
[2023-02-09] MEDS: metFORMIN HCl ER 500 MG TAB.ER.24H 1000 MG PO ×2 (09:52→21:12)
[2023-02-09] MEDS: Ferrous Sulfate 324 MG TABLET.DR PO (09:52)
[2023-02-09] MEDS: Sertraline HCL 50 MG TABLET PO (09:53)
[2023-02-09] MEDS: Acetaminophen 325 MG TABLET 650 MG PO (10:02)
[2023-02-09] MEDS: Throat Lozenge, Medicated LOZENGE 1 LOZENGE MUCOUS MEM (10:02)
[2023-02-09 10:11] LABS: Glucose, Whole Blood 100 mg/dL (60-115)
[2023-02-09 13:38] LABS: IDNOW Serial# 08D9AD1C; Influenza A Negative (Negative); Influenza B2 Negative (Negative)
[2023-02-09 15:50] VITALS: TEMP 36.1
--- NOTE | 2023-02-09 18:33 | P.PNPSI_ITS ---
Subjective Subjective Date of Service: 02/09/23 Reason For Visit: Psychosis Interim History: calm, cooperative. in bed, c/o physical Sx of COVID. Had low grade temp this AM. Flu test negative. Otherwise no change in status. per staff, poor PO intake. On paxlovid. Sat's upper 90s. sleeps well. Says she has hallucinations but somewhat improved. Review of Systems Review of Systems Unremarkable Yes all other systems are reviewed and are negative Constitutional: Reports as per HPI Mental Status Exam Mental Status Exam Narrative: Appearance: wearing hospital gown, adequately groomed Behavior: cooperative Psychomotor: no agitation or retardation noted TP: linear TC: no delusions or paranoia expressed Mood: not assessed Affect: normo-intense, non-labile, constricted SI: none expressed HI: none expressed AH: improved VH: none expressed Insight/judgment: fair x 2. Diagnostics Vital Signs (24Hr): Vital Signs - 24 hr 02/08/23 21:49 02/09/23 09:52 02/09/23 15:50 Temperature 97.7 F 99 F 97.0 F Pulse Rate 97 106 H Respiratory Rate 16 16 Blood Pressure 118/58 L 110/56 L Pulse Oximetry 97 97 Oxygen Delivery Method Room Air Room Air BMI result Body Mass Index 44.5 Labs 01/30/23 19:48 02/06/23 06:58 Labs: Laboratory Results - last 48 hr 02/07/23 02/08/23 02/08/23 20:52 09:53 20:19 POC Glucose 187 H 171 H 210 H Influenza Type A (YANY) Influenza Type B (YANY) Influenza A & B Note 02/09/23 02/09/23 09:50 13:18 POC Glucose 100 Influenza Type A (YANY) Negative Influenza Type B (YANY) Negative Influenza A & B Note See Note Medications Medications Current Medications Acetaminophen (Acetaminophen 325 Mg Tablet) 650 mg PO Q6H PRN PRN Reason: Headache/Pain Mild(1-3); fever Last Admin: 02/09/23 10:02 Dose: 650 mg Al Hydroxide/Mg Hydroxide (Magnesium Hydrox/Alum Hydrox 30 Ml Oral.Susp) 30 ml PO Q6H PRN PRN Reason: Heartburn/Nausea Ascorbic Acid (Ascorbic Acid 500 Mg Tablet) 500 mg PO DAILY [facility] Last Admin: 02/09/23 09:52 Dose: 500 mg Benzocaine (Throat Lozenge, Medicated Lozenge) 1 lozenge MUCOUS MEM Q1H PRN PRN Reason: Sore Throat Last Admin: 02/09/23 10:02 Dose: 1 lozenge Clozapine (Clozapine 25 Mg Tablet) 25 mg PO DAILY [facility] Last Admin: 02/09/23 09:52 Dose: 25 mg Clozapine (Clozapine 100 Mg Tablet) 100 mg PO DAILY [facility] Last Admin: 02/09/23 09:52 Dose: 100 mg Clozapine (Clozapine 100 Mg Tablet) 300 mg PO BEDTIME [facility] Last Admin: 02/08/23 22:18 Dose: 300 mg Divalproex Sodium (Divalproex Sodium Er 500 Mg Tab.Er.24h) 2,500 mg PO BEDTIME [facility] Last Admin: 02/08/23 22:17 Dose: 2,500 mg Docusate Sodium (Docusate Sodium 100 Mg Capsule) 100 mg PO BID PRN PRN Reason: Constipation Ferrous Sulfate (Ferrous Sulfate 324 Mg Tablet.Dr) 324 mg PO DAILY [facility] Last Admin: 02/09/23 09:52 Dose: 324 mg Hydroxyzine HCl (Hydroxyzine Hcl 25 Mg Tablet) 25 mg PO Q6H PRN PRN Reason: Anxiety Ibuprofen (Ibuprofen 600 Mg Tablet) 600 mg PO Q8H PRN PRN Reason: Pain, Mild (Pain Scale 1-3) Last Admin: 02/08/23 16:11 Dose: 600 mg Insulin Glargine (Insulin Glargine,Hum.Rec.Anlog 100 Unit/Ml 10 Ml Vial) 70 unit SUBCUT BEDTIME [facility] Last Admin: 02/08/23 22:19 Dose: 70 unit Lisinopril (Lisinopril 10 Mg Tablet) 10 mg PO DAILY [facility]; Protocol Last Admin: 02/09/23 09:52 Dose: 10 mg Magnesium Hydroxide (Milk Of Magnesia 30 Ml Oral.Susp) 30 ml PO DAILY PRN PRN Reason: Constipation Metformin HCl (Metformin Hcl Er 500 Mg Tab.Er.24h) 1,000 mg PO BID [facility] Last Admin: 02/09/23 09:52 Dose: 1,000 mg Metoprolol Tartrate (Metoprolol Tartrate 25 Mg Tablet) 25 mg PO BID [facility]; Protocol Last Admin: 02/09/23 09:52 Dose: 25 mg Nicotine Polacrilex (Nicotine Polacrilex 2 Mg Gum) 4 mg BUCCAL Q2H PRN PRN Reason: Nicotine Cravings Nirmatrelvir/Ritonavir (Nirmatrelvir/Ritonavir 300/100 3 Tab Dose) 3 tab PO BID [facility] Stop: 02/11/23 21:01 Last Admin: 02/09/23 09:51 Dose: 3 tab Pt Own (Dulaglutide [Trulicity] 1.5 Mg/0 .5 Ml Pen Injector) 0.5 ml SUBCUT Cortes@0900 [facility] Last Admin: 02/03/23 09:28 Dose: 0.5 ml Omeprazole (Omeprazole 20 Mg Capsule.Dr) 20 mg PO DAILY@0630 [facility] Last Admin: 02/09/23 09:52 Dose: 20 mg Ondansetron HCl (Ondansetron Odt 4 Mg Tab.Rapdis) 4 mg TRANSLINGU Q6H PRN PRN Reason: Nausea and Vomiting Last Admin: 02/08/23 16:11 Dose: 4 mg Perphenazine (Perphenazine 4 Mg Tablet) 4 mg PO BID [facility] Last Admin: 02/09/23 09:52 Dose: 4 mg Senna/Docusate Sodium (Sennosides/Docusate Sodium Tablet) 1 tab PO DAILY [facility] Last Admin: 02/09/23 09:52 Dose: 1 tab Sertraline HCl (Sertraline Hcl 50 Mg Tablet) 50 mg PO DAILY [facility] Last Admin: 02/09/23 09:53 Dose: 50 mg Trazodone HCl (Trazodone Hcl 50 Mg Tablet) 50 mg PO BEDTIME MRX1 PRN PRN Reason: Insomnia Allergies Allergies Allergy/AdvReac Type Severity Reaction Status Date / Time Sulfa (Sulfonamide Allergy Intermediate PUFFY EYES Verified 04/22/22 06:14 Antibiotics) [SULFA (SULFONAMIDE ANTIBIOTICS)] Penicillins [PENICILLINS] Allergy Mild PT STATES Verified 04/22/22 06:14 NOTHING HAPPENS, ALLG LISTED ON TRANF SHEET Assessment & Plan Assessment & Plan (1) Schizophrenia: Qualifiers: Schizophrenia type: paranoid schizophrenia Qualified Code(s): F20.0 - Paranoid schizophrenia Status: Acute Code(s): F20.9 - Schizophrenia, unspecified Plan 01/23: increase VPA from 1000 mg QHS to 2000 mg QHS as of tonight. otherwise continue current mgmt. 01/24: appears unchanged from yesterday. malodorous, very poor hygiene, unkempt and disheveled. continue current mgmt. plan to increase VPA to 2500 mg in a day or two, as that is more likely to be a therapeutic dose. 01/25: increase VPA to 2500 mg QHS as of tonight. check level in 5 days. observe for resolution of mood and psychotic Sx. T/C increase clozapine dosing if mood stabilizer at therapeutic serum level is not effective. 01/26/2023: No changes to current plan 01/27: no changes 01/28: continue current mgmt. seems to have improved somewhat from admission. check labs weds juan m. 01/29: stabilizing. less affectively intense or labile. continue current mgmt. labs tomorrow juan m. 01/30: full range of affect today, spending more time out of room. remains in bed much of the time, however. labs tonight. 01/31: stable improvements. VPA level 43.6, pt declines increase. AH decreasing. continue current mgmt. 02/01 continue tx. 02/02 continue tx. 02/03 continue tx. 02/04: mood improved, AH much improved. continue current mgmt for now. begin to discuss dispo. 02/05: COVID POS. continue current mgmt. in isolation. 02/06: no substantial change in status. mild URI Sx. continue current mgmt. 02/07: febrile, aches, vomiting. paxlovid started x 5 days. otherwise continue current mgmt. 02/08: febrile, symptomatic of COVID. continue paxlovid and supportive care. aware paxlovid may alter serum levels of medications and more time may be required for psych stabilization. Reason for continued inpatient stay Substantial Risk for: inability to function and rapid decompensation Time Spent With Patient Time: Total time managing care of this patient today ____ minutes.
[2023-02-09 20:09] LABS: Glucose, Whole Blood 180 mg/dL (60-115)
[2023-02-09 20:19] VITALS: BP 109/63; PULSE 93; RESP 16; TEMP 36.7; O2SAT 97
[2023-02-09] MEDS: Insulin Glargine,Hum.rec.anlog 100 UNIT/ML 10 ML VIAL 70 UNIT SUBCUT (21:11)
[2023-02-09] MEDS: Divalproex Sodium ER 500 MG TAB.ER.24H 2500 MG PO (21:12)
[2023-02-09] MEDS: cloZAPine 100 MG TABLET 300 MG PO (21:12)
[2023-02-10 08:37] LABS: Glucose, Whole Blood 131 mg/dL (60-115)
[2023-02-10 08:59] VITALS: BP 121/81; PULSE 98; RESP 17; TEMP 37.4; O2SAT 97
[2023-02-10] MEDS: Sennosides/Docusate Sodium TABLET 1 TAB PO (09:28)
[2023-02-10] MEDS: metFORMIN HCl ER 500 MG TAB.ER.24H 1000 MG PO ×2 (09:29→20:29)
[2023-02-10] MEDS: Perphenazine 4 MG TABLET PO ×2 (09:29→20:29)
[2023-02-10] MEDS: cloZAPine 100 MG TABLET PO (09:29)
[2023-02-10] MEDS: Ferrous Sulfate 324 MG TABLET.DR PO (09:30)
[2023-02-10] MEDS: lisinopriL 10 MG TABLET PO (09:30)
[2023-02-10] MEDS: Metoprolol Tartrate 25 MG TABLET PO ×2 (09:30→20:29)
[2023-02-10] MEDS: Ascorbic Acid 500 MG TABLET PO (09:30)
[2023-02-10] MEDS: Sertraline HCL 50 MG TABLET PO (09:30)
[2023-02-10] MEDS: Omeprazole 20 MG CAPSULE.DR PO (09:31)
[2023-02-10] MEDS: cloZAPine 25 MG TABLET PO (09:31)
[2023-02-10] MEDS: PT OWN (Dulaglutide [Trulicity] 1.5 mg/0.5 mL pen injector) 0.5 EACH SUBCUT (09:53)
--- NOTE | 2023-02-10 13:21 | P.PNPSI_ITS ---
Subjective Subjective Date of Service: 02/10/23 Reason For Visit: Psychosis Interim History: calm, cooperative. in bed, c/o physical Sx of COVID. She says I feel a little better. I am not as congested as yesterday. Had low grade temp this AM 99.4. Flu test negative. Otherwise no change in status. Per staff, poor PO intake. On Paxlovid. Sat's upper 90s. sleeps well. Says she has hallucinations but improved. No SI. Review of Systems Review of Systems Unremarkable Yes all other systems are reviewed and are negative Constitutional: Reports as per HPI Mental Status Exam Mental Status Exam Narrative: Appearance: wearing hospital gown, adequately groomed Behavior: cooperative Psychomotor: no agitation or retardation noted TP: linear TC: no delusions or paranoia expressed Mood: not assessed Affect: normo-intense, non-labile, constricted SI: none expressed HI: none expressed AH: improved VH: none expressed Insight/judgment: fair x 2. Diagnostics Vital Signs (24Hr): Vital Signs - 24 hr 02/09/23 15:50 02/09/23 20:19 02/10/23 08:59 Temperature 97.0 F 98.0 F 99.3 F Pulse Rate 93 98 Respiratory Rate 16 17 Blood Pressure 109/63 121/81 Pulse Oximetry 97 97 Oxygen Delivery Method Room Air Room Air BMI result Body Mass Index 44.5 Labs 01/30/23 19:48 02/06/23 06:58 Labs: Laboratory Results - last 48 hr 02/08/23 02/09/23 02/09/23 20:19 09:50 13:18 POC Glucose 210 H 100 Influenza Type A (YANY) Negative Influenza Type B (YANY) Negative Influenza A & B Note See Note 02/09/23 02/10/23 20:01 08:29 POC Glucose 180 H 131 H Influenza Type A (YANY) Influenza Type B (YANY) Influenza A & B Note Medications Medications Current Medications Acetaminophen (Acetaminophen 325 Mg Tablet) 650 mg PO Q6H PRN PRN Reason: Headache/Pain Mild(1-3); fever Last Admin: 02/09/23 10:02 Dose: 650 mg Al Hydroxide/Mg Hydroxide (Magnesium Hydrox/Alum Hydrox 30 Ml Oral.Susp) 30 ml PO Q6H PRN PRN Reason: Heartburn/Nausea Ascorbic Acid (Ascorbic Acid 500 Mg Tablet) 500 mg PO DAILY [facility] Last Admin: 02/10/23 09:30 Dose: 500 mg Benzocaine (Throat Lozenge, Medicated Lozenge) 1 lozenge MUCOUS MEM Q1H PRN PRN Reason: Sore Throat Last Admin: 02/09/23 10:02 Dose: 1 lozenge Clozapine (Clozapine 25 Mg Tablet) 25 mg PO DAILY [facility] Last Admin: 02/10/23 09:31 Dose: 25 mg Clozapine (Clozapine 100 Mg Tablet) 100 mg PO DAILY [facility] Last Admin: 02/10/23 09:29 Dose: 100 mg Clozapine (Clozapine 100 Mg Tablet) 300 mg PO BEDTIME [facility] Last Admin: 02/09/23 21:12 Dose: 300 mg Divalproex Sodium (Divalproex Sodium Er 500 Mg Tab.Er.24h) 2,500 mg PO BEDTIME [facility] Last Admin: 02/09/23 21:12 Dose: 2,500 mg Docusate Sodium (Docusate Sodium 100 Mg Capsule) 100 mg PO BID PRN PRN Reason: Constipation Ferrous Sulfate (Ferrous Sulfate 324 Mg Tablet.Dr) 324 mg PO DAILY [facility] Last Admin: 02/10/23 09:30 Dose: 324 mg Hydroxyzine HCl (Hydroxyzine Hcl 25 Mg Tablet) 25 mg PO Q6H PRN PRN Reason: Anxiety Ibuprofen (Ibuprofen 600 Mg Tablet) 600 mg PO Q8H PRN PRN Reason: Pain, Mild (Pain Scale 1-3) Last Admin: 02/08/23 16:11 Dose: 600 mg Insulin Glargine (Insulin Glargine,Hum.Rec.Anlog 100 Unit/Ml 10 Ml Vial) 70 unit SUBCUT BEDTIME [facility] Last Admin: 02/09/23 21:11 Dose: 70 unit Lisinopril (Lisinopril 10 Mg Tablet) 10 mg PO DAILY [facility]; Protocol Last Admin: 02/10/23 09:30 Dose: 10 mg Magnesium Hydroxide (Milk Of Magnesia 30 Ml Oral.Susp) 30 ml PO DAILY PRN PRN Reason: Constipation Metformin HCl (Metformin Hcl Er 500 Mg Tab.Er.24h) 1,000 mg PO BID [facility] Last Admin: 02/10/23 09:29 Dose: 1,000 mg Metoprolol Tartrate (Metoprolol Tartrate 25 Mg Tablet) 25 mg PO BID [facility]; Protocol Last Admin: 02/10/23 09:30 Dose: 25 mg Nicotine Polacrilex (Nicotine Polacrilex 2 Mg Gum) 4 mg BUCCAL Q2H PRN PRN Reason: Nicotine Cravings Nirmatrelvir/Ritonavir (Nirmatrelvir/Ritonavir 300/100 3 Tab Dose) 3 tab PO BID [facility] Stop: 02/11/23 21:01 Last Admin: 02/10/23 09:53 Dose: 3 tab Pt Own (Dulaglutide [Trulicity] 1.5 Mg/0 .5 Ml Pen Injector) 0.5 ml SUBCUT Cortes@0900 [facility] Last Admin: 02/10/23 09:53 Dose: 0.5 ml Omeprazole (Omeprazole 20 Mg Capsule.Dr) 20 mg PO DAILY@629 [facility] Last Admin: 02/10/23 09:31 Dose: 20 mg Ondansetron HCl (Ondansetron Odt 4 Mg Tab.Rapdis) 4 mg TRANSLINGU Q6H PRN PRN Reason: Nausea and Vomiting Last Admin: 02/08/23 16:11 Dose: 4 mg Perphenazine (Perphenazine 4 Mg Tablet) 4 mg PO BID [facility] Last Admin: 02/10/23 09:29 Dose: 4 mg Senna/Docusate Sodium (Sennosides/Docusate Sodium Tablet) 1 tab PO DAILY [facility] Last Admin: 02/10/23 09:28 Dose: 1 tab Sertraline HCl (Sertraline Hcl 50 Mg Tablet) 50 mg PO DAILY [facility] Last Admin: 02/10/23 09:30 Dose: 50 mg Trazodone HCl (Trazodone Hcl 50 Mg Tablet) 50 mg PO BEDTIME MRX1 PRN PRN Reason: Insomnia Allergies Allergies Allergy/AdvReac Type Severity Reaction Status Date / Time Sulfa (Sulfonamide Allergy Intermediate PUFFY EYES Verified 04/22/22 06:14 Antibiotics) [SULFA (SULFONAMIDE ANTIBIOTICS)] Penicillins [PENICILLINS] Allergy Mild PT STATES Verified 04/22/22 06:14 NOTHING HAPPENS, ALLG LISTED ON TRANF SHEET Assessment & Plan Assessment & Plan (1) Schizophrenia: Qualifiers: Schizophrenia type: paranoid schizophrenia Qualified Code(s): F20.0 - Paranoid schizophrenia Status: Acute Code(s): F20.9 - Schizophrenia, unspecified Plan 01/23: increase VPA from 1000 mg QHS to 2000 mg QHS as of tonight. otherwise continue current mgmt. 01/24: appears unchanged from yesterday. malodorous, very poor hygiene, unkempt and disheveled. continue current mgmt. plan to increase VPA to 2500 mg in a day or two, as that is more likely to be a therapeutic dose. 01/25: increase VPA to 2500 mg QHS as of tonight. check level in 5 days. observe for resolution of mood and psychotic Sx. T/C increase clozapine dosing if mood stabilizer at therapeutic serum level is not effective. 01/26/2023: No changes to current plan 01/27: no changes 01/28: continue current mgmt. seems to have improved somewhat from admission. check labs weds juan m. 01/29: stabilizing. less affectively intense or labile. continue current mgmt. labs tomorrow juan m. 01/30: full range of affect today, spending more time out of room. remains in bed much of the time, however. labs tonight. 01/31: stable improvements. VPA level 43.6, pt declines increase. AH decreasing. continue current mgmt. 02/01 continue tx. 02/02 continue tx. 02/03 continue tx. 02/04: mood improved, AH much improved. continue current mgmt for now. begin to discuss dispo. 02/05: COVID POS. continue current mgmt. in isolation. 02/06: no substantial change in status. mild URI Sx. continue current mgmt. 02/07: febrile, aches, vomiting. paxlovid started x 5 days. otherwise continue current mgmt. 02/08: febrile, symptomatic of COVID. continue paxlovid and supportive care. aware paxlovid may alter serum levels of medications and more time may be required for psych stabilization. 02/10: Continue current treatment plan. Reason for continued inpatient stay Substantial Risk for: inability to function and rapid decompensation Time Spent With Patient Time: Total time managing care of this patient today ____ minutes.
[2023-02-10 18:00] VITALS: BP 116/67; PULSE 107; RESP 18; TEMP 36.3; O2SAT 98
[2023-02-10] MEDS: Insulin Glargine,Hum.rec.anlog 100 UNIT/ML 10 ML VIAL 70 UNIT SUBCUT (20:26)
[2023-02-10] MEDS: cloZAPine 100 MG TABLET 300 MG PO (20:28)
[2023-02-10] MEDS: Divalproex Sodium ER 500 MG TAB.ER.24H 2500 MG PO (20:29)
[2023-02-10 20:42] LABS: Glucose, Whole Blood 191 mg/dL (60-115)
[2023-02-11] MEDS: Omeprazole 20 MG CAPSULE.DR PO (05:52)
[2023-02-11 08:39] VITALS: BP 108/54; PULSE 91; RESP 16; TEMP 36.1; O2SAT 97
[2023-02-11 08:41] LABS: Glucose, Whole Blood 168 mg/dL (60-115)
[2023-02-11] MEDS: Perphenazine 4 MG TABLET PO ×2 (08:59→22:33)
[2023-02-11] MEDS: metFORMIN HCl ER 500 MG TAB.ER.24H 1000 MG PO ×2 (09:00→22:34)
[2023-02-11] MEDS: cloZAPine 100 MG TABLET PO (09:00)
[2023-02-11] MEDS: Ascorbic Acid 500 MG TABLET PO (09:00)
[2023-02-11] MEDS: Sennosides/Docusate Sodium TABLET 1 TAB PO (09:01)
[2023-02-11] MEDS: Metoprolol Tartrate 25 MG TABLET PO ×2 (09:01→22:33)
[2023-02-11] MEDS: Sertraline HCL 50 MG TABLET PO (09:01)
[2023-02-11] MEDS: Ferrous Sulfate 324 MG TABLET.DR PO (09:01)
[2023-02-11] MEDS: lisinopriL 10 MG TABLET PO (09:02)
[2023-02-11] MEDS: cloZAPine 25 MG TABLET PO (09:02)
--- NOTE | 2023-02-11 15:02 | P.PNPSI_ITS ---
Subjective Subjective Date of Service: 02/11/23 Reason For Visit: Psychosis Interim History: sleepy, in bed. seems to indicate mood slightly improved, still feeling ill from COVID. per staff, symptomatic of COVID. body aches, vomiting. AH telling her she's ugly and worthless. Mental Status Exam Mental Status Exam Narrative: Appearance: wearing hospital gown, adequately groomed Behavior: cooperative Psychomotor: no agitation or retardation noted TP: linear TC: no delusions or paranoia expressed Mood: improved Affect: normo-intense, non-labile, constricted SI: none expressed HI: none expressed AH: improved VH: none expressed Insight/judgment: fair x 2. Diagnostics Vital Signs (24Hr): Vital Signs - 24 hr 02/10/23 18:00 02/11/23 08:39 Temperature 97.4 F 97 F Pulse Rate 107 H 91 Respiratory Rate 18 16 Blood Pressure 116/67 108/54 L Pulse Oximetry 98 97 Oxygen Delivery Method Room Air Room Air BMI result Body Mass Index 44.5 Labs 01/30/23 19:48 02/06/23 06:58 Labs: Laboratory Results - last 48 hr 02/09/23 02/10/23 02/10/23 20:01 08:29 20:25 POC Glucose 180 H 131 H 191 H 02/11/23 08:35 POC Glucose 168 H Medications Medications Current Medications Acetaminophen (Acetaminophen 325 Mg Tablet) 650 mg PO Q6H PRN PRN Reason: Headache/Pain Mild(1-3); fever Last Admin: 02/09/23 10:02 Dose: 650 mg Al Hydroxide/Mg Hydroxide (Magnesium Hydrox/Alum Hydrox 30 Ml Oral.Susp) 30 ml PO Q6H PRN PRN Reason: Heartburn/Nausea Ascorbic Acid (Ascorbic Acid 500 Mg Tablet) 500 mg PO DAILY [facility] Last Admin: 02/11/23 09:00 Dose: 500 mg Benzocaine (Throat Lozenge, Medicated Lozenge) 1 lozenge MUCOUS MEM Q1H PRN PRN Reason: Sore Throat Last Admin: 02/09/23 10:02 Dose: 1 lozenge Clozapine (Clozapine 25 Mg Tablet) 25 mg PO DAILY [facility] Last Admin: 02/11/23 09:02 Dose: 25 mg Clozapine (Clozapine 100 Mg Tablet) 100 mg PO DAILY [facility] Last Admin: 02/11/23 09:00 Dose: 100 mg Clozapine (Clozapine 100 Mg Tablet) 300 mg PO BEDTIME [facility] Last Admin: 02/10/23 20:28 Dose: 300 mg Divalproex Sodium (Divalproex Sodium Er 500 Mg Tab.Er.24h) 2,500 mg PO BEDTIME [facility] Last Admin: 02/10/23 20:29 Dose: 2,500 mg Docusate Sodium (Docusate Sodium 100 Mg Capsule) 100 mg PO BID PRN PRN Reason: Constipation Ferrous Sulfate (Ferrous Sulfate 324 Mg Tablet.Dr) 324 mg PO DAILY [facility] Last Admin: 02/11/23 09:01 Dose: 324 mg Hydroxyzine HCl (Hydroxyzine Hcl 25 Mg Tablet) 25 mg PO Q6H PRN PRN Reason: Anxiety Ibuprofen (Ibuprofen 600 Mg Tablet) 600 mg PO Q8H PRN PRN Reason: Pain, Mild (Pain Scale 1-3) Last Admin: 02/08/23 16:11 Dose: 600 mg Insulin Glargine (Insulin Glargine,Hum.Rec.Anlog 100 Unit/Ml 10 Ml Vial) 70 unit SUBCUT BEDTIME [facility] Last Admin: 02/10/23 20:26 Dose: 70 unit Lisinopril (Lisinopril 10 Mg Tablet) 10 mg PO DAILY [facility]; Protocol Last Admin: 02/11/23 09:02 Dose: 10 mg Magnesium Hydroxide (Milk Of Magnesia 30 Ml Oral.Susp) 30 ml PO DAILY PRN PRN Reason: Constipation Metformin HCl (Metformin Hcl Er 500 Mg Tab.Er.24h) 1,000 mg PO BID [facility] Last Admin: 02/11/23 09:00 Dose: 1,000 mg Metoprolol Tartrate (Metoprolol Tartrate 25 Mg Tablet) 25 mg PO BID [facility]; Protocol Last Admin: 02/11/23 09:01 Dose: 25 mg Nicotine Polacrilex (Nicotine Polacrilex 2 Mg Gum) 4 mg BUCCAL Q2H PRN PRN Reason: Nicotine Cravings Nirmatrelvir/Ritonavir (Nirmatrelvir/Ritonavir 300/100 3 Tab Dose) 3 tab PO BID [facility] Stop: 02/11/23 21:01 Last Admin: 02/11/23 08:59 Dose: 3 tab Pt Own (Dulaglutide [Trulicity] 1.5 Mg/0 .5 Ml Pen Injector) 0.5 ml SUBCUT Cortes@0900 [facility] Last Admin: 02/10/23 09:53 Dose: 0.5 ml Omeprazole (Omeprazole 20 Mg Capsule.Dr) 20 mg PO DAILY@0630 [facility] Last Admin: 02/11/23 05:52 Dose: 20 mg Ondansetron HCl (Ondansetron Odt 4 Mg Tab.Rapdis) 4 mg TRANSLINGU Q6H PRN PRN Reason: Nausea and Vomiting Last Admin: 02/08/23 16:11 Dose: 4 mg Perphenazine (Perphenazine 4 Mg Tablet) 4 mg PO BID [facility] Last Admin: 02/11/23 08:59 Dose: 4 mg Senna/Docusate Sodium (Sennosides/Docusate Sodium Tablet) 1 tab PO DAILY [facility] Last Admin: 02/11/23 09:01 Dose: 1 tab Sertraline HCl (Sertraline Hcl 50 Mg Tablet) 50 mg PO DAILY [facility] Last Admin: 02/11/23 09:01 Dose: 50 mg Trazodone HCl (Trazodone Hcl 50 Mg Tablet) 50 mg PO BEDTIME MRX1 PRN PRN Reason: Insomnia Allergies Allergies Allergy/AdvReac Type Severity Reaction Status Date / Time Sulfa (Sulfonamide Allergy Intermediate PUFFY EYES Verified 04/22/22 06:14 Antibiotics) [SULFA (SULFONAMIDE ANTIBIOTICS)] Penicillins [PENICILLINS] Allergy Mild PT STATES Verified 04/22/22 06:14 NOTHING HAPPENS, ALLG LISTED ON TRANF SHEET Assessment & Plan Assessment & Plan (1) Schizophrenia: Qualifiers: Schizophrenia type: paranoid schizophrenia Qualified Code(s): F20.0 - Paranoid schizophrenia Status: Acute Code(s): F20.9 - Schizophrenia, unspecified Plan 01/23: increase VPA from 1000 mg QHS to 2000 mg QHS as of tonight. otherwise continue current mgmt. 01/24: appears unchanged from yesterday. malodorous, very poor hygiene, unkempt and disheveled. continue current mgmt. plan to increase VPA to 2500 mg in a day or two, as that is more likely to be a therapeutic dose. 01/25: increase VPA to 2500 mg QHS as of tonight. check level in 5 days. observe for resolution of mood and psychotic Sx. T/C increase clozapine dosing if mood stabilizer at therapeutic serum level is not effective. 01/26/2023: No changes to current plan 01/27: no changes 01/28: continue current mgmt. seems to have improved somewhat from admission. check labs weds juan m. 01/29: stabilizing. less affectively intense or labile. continue current mgmt. labs tomorrow juan m. 01/30: full range of affect today, spending more time out of room. remains in bed much of the time, however. labs tonight. 01/31: stable improvements. VPA level 43.6, pt declines increase. AH decreasing. continue current mgmt. 02/01 continue tx. 02/02 continue tx. 02/03 continue tx. 02/04: mood improved, AH much improved. continue current mgmt for now. begin to discuss dispo. 02/05: COVID POS. continue current mgmt. in isolation. 02/06: no substantial change in status. mild URI Sx. continue current mgmt. 02/07: febrile, aches, vomiting. paxlovid started x 5 days. otherwise continue current mgmt. 02/08: febrile, symptomatic of COVID. continue paxlovid and supportive care. aware paxlovid may alter serum levels of medications and more time may be required for psych stabilization. 02/10: Continue current treatment plan. 02/11: continues feeling ill from COVID, body aches and vomiting. continue current mgmt. Reason for continued inpatient stay Substantial Risk for: inability to function and rapid decompensation Time Spent With Patient Time: Total time managing care of this patient today ____ minutes.
[2023-02-11 18:00] VITALS: BP 156/68; PULSE 101; RESP 20; TEMP 36.2; O2SAT 99
[2023-02-11] MEDS: Insulin Glargine,Hum.rec.anlog 100 UNIT/ML 10 ML VIAL 70 UNIT SUBCUT (22:32)
[2023-02-11] MEDS: Divalproex Sodium ER 500 MG TAB.ER.24H 2500 MG PO (22:33)
[2023-02-11] MEDS: cloZAPine 100 MG TABLET 300 MG PO (22:34)
[2023-02-11 22:57] LABS: Glucose, Whole Blood 165 mg/dL (60-115)
[2023-02-12] MEDS: Omeprazole 20 MG CAPSULE.DR PO (07:14)
[2023-02-12 09:14] LABS: Glucose, Whole Blood 119 mg/dL (60-115)
[2023-02-12 09:53] VITALS: BP 132/52; PULSE 104; RESP 20; TEMP 36.1; O2SAT 94
[2023-02-12 09:54] VITALS: BP 146/70; PULSE 106; O2SAT 96
[2023-02-12] MEDS: Perphenazine 4 MG TABLET PO ×2 (09:56→20:59)
[2023-02-12] MEDS: Sennosides/Docusate Sodium TABLET 1 TAB PO (09:56)
[2023-02-12] MEDS: cloZAPine 25 MG TABLET PO (09:56)
[2023-02-12] MEDS: Metoprolol Tartrate 25 MG TABLET PO ×2 (09:56→20:59)
[2023-02-12] MEDS: lisinopriL 10 MG TABLET PO (09:56)
[2023-02-12] MEDS: metFORMIN HCl ER 500 MG TAB.ER.24H 1000 MG PO ×2 (09:56→20:59)
[2023-02-12] MEDS: Sertraline HCL 50 MG TABLET PO (09:57)
[2023-02-12] MEDS: cloZAPine 100 MG TABLET PO (09:57)
[2023-02-12] MEDS: Ferrous Sulfate 324 MG TABLET.DR PO (09:57)
[2023-02-12] MEDS: Ascorbic Acid 500 MG TABLET PO (09:57)
[2023-02-12 11:01] VITALS: BMI 42.9
--- NOTE | 2023-02-12 13:58 | HO.PSYCHPN ---
Subjective Subjective Date of Service: 02/12/23 Reason For Visit: Psychosis Interim History: resting in bed, remains symptomatic of COVID, c/o nausea and coughing, fever (currently afebrile per medical staff specialist). denies SOB, endorses depression. per staff, isolation precautions due to continuing Sx. c/o nightmares and insomnia, AH telling her she's worthless and ugly. aches, cough, congestion. Mental Status Exam Mental Status Exam Narrative: Appearance: wearing hospital gown, adequately groomed Behavior: cooperative Psychomotor: no agitation or retardation noted TP: linear TC: no delusions or paranoia expressed Mood: depression Affect: normo-intense, non-labile, constricted SI: none expressed HI: none expressed AH: persist VH: none expressed Insight/judgment: fair x 2. Diagnostics Vital Signs (24Hr): Vital Signs - 24 hr 02/11/23 18:00 02/12/23 09:53 02/12/23 09:54 Temperature 97.2 F 96.9 F Pulse Rate 101 H 104 H 106 H Respiratory Rate 20 20 Blood Pressure 156/68 H 132/52 L 146/70 H Pulse Oximetry 99 94 96 Oxygen Delivery Method Room Air Room Air BMI result Body Mass Index 42.9 Labs 01/30/23 19:48 02/06/23 06:58 Labs: Laboratory Results - last 48 hr 02/10/23 02/11/23 02/11/23 20:25 08:35 22:40 POC Glucose 191 H 168 H 165 H 02/12/23 09:08 POC Glucose 119 H Medications Medications Current Medications Acetaminophen (Acetaminophen 325 Mg Tablet) 650 mg PO Q6H PRN PRN Reason: Headache/Pain Mild(1-3); fever Last Admin: 02/09/23 10:02 Dose: 650 mg Al Hydroxide/Mg Hydroxide (Magnesium Hydrox/Alum Hydrox 30 Ml Oral.Susp) 30 ml PO Q6H PRN PRN Reason: Heartburn/Nausea Ascorbic Acid (Ascorbic Acid 500 Mg Tablet) 500 mg PO DAILY [facility] Last Admin: 02/12/23 09:57 Dose: 500 mg Benzocaine (Throat Lozenge, Medicated Lozenge) 1 lozenge MUCOUS MEM Q1H PRN PRN Reason: Sore Throat Last Admin: 02/09/23 10:02 Dose: 1 lozenge Clozapine (Clozapine 25 Mg Tablet) 25 mg PO DAILY [facility] Last Admin: 02/12/23 09:56 Dose: 25 mg Clozapine (Clozapine 100 Mg Tablet) 100 mg PO DAILY [facility] Last Admin: 02/12/23 09:57 Dose: 100 mg Clozapine (Clozapine 100 Mg Tablet) 300 mg PO BEDTIME [facility] Last Admin: 02/11/23 22:34 Dose: 300 mg Divalproex Sodium (Divalproex Sodium Er 500 Mg Tab.Er.24h) 2,500 mg PO BEDTIME [facility] Last Admin: 02/11/23 22:33 Dose: 2,500 mg Docusate Sodium (Docusate Sodium 100 Mg Capsule) 100 mg PO BID PRN PRN Reason: Constipation Ferrous Sulfate (Ferrous Sulfate 324 Mg Tablet.Dr) 324 mg PO DAILY [facility] Last Admin: 02/12/23 09:57 Dose: 324 mg Hydroxyzine HCl (Hydroxyzine Hcl 25 Mg Tablet) 25 mg PO Q6H PRN PRN Reason: Anxiety Ibuprofen (Ibuprofen 600 Mg Tablet) 600 mg PO Q8H PRN PRN Reason: Pain, Mild (Pain Scale 1-3) Last Admin: 02/08/23 16:11 Dose: 600 mg Insulin Glargine (Insulin Glargine,Hum.Rec.Anlog 100 Unit/Ml 10 Ml Vial) 70 unit SUBCUT BEDTIME [facility] Last Admin: 02/11/23 22:32 Dose: 70 unit Lisinopril (Lisinopril 10 Mg Tablet) 10 mg PO DAILY [facility]; Protocol Last Admin: 02/12/23 09:56 Dose: 10 mg Magnesium Hydroxide (Milk Of Magnesia 30 Ml Oral.Susp) 30 ml PO DAILY PRN PRN Reason: Constipation Metformin HCl (Metformin Hcl Er 500 Mg Tab.Er.24h) 1,000 mg PO BID [facility] Last Admin: 02/12/23 09:56 Dose: 1,000 mg Metoprolol Tartrate (Metoprolol Tartrate 25 Mg Tablet) 25 mg PO BID [facility]; Protocol Last Admin: 02/12/23 09:56 Dose: 25 mg Nicotine Polacrilex (Nicotine Polacrilex 2 Mg Gum) 4 mg BUCCAL Q2H PRN PRN Reason: Nicotine Cravings Pt Own (Dulaglutide [Trulicity] 1.5 Mg/0 .5 Ml Pen Injector) 0.5 ml SUBCUT Cortes@0900 [facility] Last Admin: 02/10/23 09:53 Dose: 0.5 ml Omeprazole (Omeprazole 20 Mg Capsule.Dr) 20 mg PO DAILY@0630 [facility] Last Admin: 02/12/23 07:14 Dose: 20 mg Ondansetron HCl (Ondansetron Odt 4 Mg Tab.Rapdis) 4 mg TRANSLINGU Q6H PRN PRN Reason: Nausea and Vomiting Last Admin: 02/08/23 16:11 Dose: 4 mg Perphenazine (Perphenazine 4 Mg Tablet) 4 mg PO BID [facility] Last Admin: 02/12/23 09:56 Dose: 4 mg Senna/Docusate Sodium (Sennosides/Docusate Sodium Tablet) 1 tab PO DAILY [facility] Last Admin: 02/12/23 09:56 Dose: 1 tab Sertraline HCl (Sertraline Hcl 50 Mg Tablet) 50 mg PO DAILY [facility] Last Admin: 02/12/23 09:57 Dose: 50 mg Trazodone HCl (Trazodone Hcl 50 Mg Tablet) 50 mg PO BEDTIME MRX1 PRN PRN Reason: Insomnia Allergies Allergies Allergy/AdvReac Type Severity Reaction Status Date / Time Sulfa (Sulfonamide Allergy Intermediate PUFFY EYES Verified 04/22/22 06:14 Antibiotics) [SULFA (SULFONAMIDE ANTIBIOTICS)] Penicillins [PENICILLINS] Allergy Mild PT STATES Verified 04/22/22 06:14 NOTHING HAPPENS, ALLG LISTED ON TRANF SHEET Assessment & Plan Assessment & Plan (1) Schizophrenia: Qualifiers: Schizophrenia type: paranoid schizophrenia Qualified Code(s): F20.0 - Paranoid schizophrenia Status: Acute Code(s): F20.9 - Schizophrenia, unspecified Plan 01/23: increase VPA from 1000 mg QHS to 2000 mg QHS as of tonight. otherwise continue current mgmt. 01/24: appears unchanged from yesterday. malodorous, very poor hygiene, unkempt and disheveled. continue current mgmt. plan to increase VPA to 2500 mg in a day or two, as that is more likely to be a therapeutic dose. 01/25: increase VPA to 2500 mg QHS as of tonight. check level in 5 days. observe for resolution of mood and psychotic Sx. T/C increase clozapine dosing if mood stabilizer at therapeutic serum level is not effective. 01/26/2023: No changes to current plan 01/27: no changes 01/28: continue current mgmt. seems to have improved somewhat from admission. check labs weds juan m. 01/29: stabilizing. less affectively intense or labile. continue current mgmt. labs tomorrow juan m. 01/30: full range of affect today, spending more time out of room. remains in bed much of the time, however. labs tonight. 01/31: stable improvements. VPA level 43.6, pt declines increase. AH decreasing. continue current mgmt. 02/01 continue tx. 02/02 continue tx. 02/03 continue tx. 02/04: mood improved, AH much improved. continue current mgmt for now. begin to discuss dispo. 02/05: COVID POS. continue current mgmt. in isolation. 02/06: no substantial change in status. mild URI Sx. continue current mgmt. 02/07: febrile, aches, vomiting. paxlovid started x 5 days. otherwise continue current mgmt. 02/08: febrile, symptomatic of COVID. continue paxlovid and supportive care. aware paxlovid may alter serum levels of medications and more time may be required for psych stabilization. 02/10: Continue current treatment plan. 02/11: continues feeling ill from COVID, body aches and vomiting. continue current mgmt. 02/12: continues medically ill from COVID. moderate worsening of psych Sx concurrently. continue supportive care and current medications regimen. Reason for continued inpatient stay Substantial Risk for: inability to function and rapid decompensation Time Spent With Patient Time: Total time managing care of this patient today __25__ minutes.
[2023-02-12 20:13] LABS: Glucose, Whole Blood 149 mg/dL (60-115)
[2023-02-12 20:48] VITALS: BP 113/77; PULSE 95; RESP 17; TEMP 36.1; O2SAT 97
[2023-02-12] MEDS: cloZAPine 100 MG TABLET 300 MG PO (20:55)
[2023-02-12] MEDS: Insulin Glargine,Hum.rec.anlog 100 UNIT/ML 10 ML VIAL 70 UNIT SUBCUT (20:58)
[2023-02-12] MEDS: Divalproex Sodium ER 500 MG TAB.ER.24H 2500 MG PO (20:59)
[2023-02-12] MEDS: Loperamide HCl 2 MG CAPSULE PO (21:51)
--- NOTE | 2023-02-13 05:35 | PC.NURSE ---
MARISA IS POST COVID TREATMENT 02/11, WITH ASSESSED SYMPTOM IMPROVEMENT. HAD LOOSE STOOL X 1, POSSIBLE EFFECT FROM PLAXLOVID-LD 02/11, GIVEN IMMODIUM WITH GOOD EFFECTS, NO COUGH, NO SOB, LCTA, NO WHEEZE, NO N/V, NO SORE THROAT, HAS A RUNNY NOSE WITH CLEAR DRAINAGE. REPORTS DECREASED APPETITE SINCE COVID, NO SIGNIFICANT WEIGHT CHANGES-ADMIT WEIGHT 117, WEIGHT ON 02/12 113. MED ADHERENT, REPORTS SAFE ON UNIT, CONTINUES WITH . MARISA CONTINUES ON TBP, FLUIDS/SNACKS OFFERED.
[2023-02-13] MEDS: Omeprazole 20 MG CAPSULE.DR PO (06:38)
[2023-02-13 08:56] LABS: Neut%MD 45.4 %; Neutrophils Absolute Auto 4.3 x10*3/uL (2.0-8.3); WBCANC 9.4 X10*3/uL
[2023-02-13 08:59] VITALS: BP 125/77; PULSE 103; RESP 18; TEMP 36.1; O2SAT 94
[2023-02-13 09:06] LABS: Glucose, Whole Blood 138 mg/dL (60-115)
[2023-02-13 09:25] LABS: Creatinine Clr Calc Pharmacy 117.9; Estimated Glomerular Filt Rate > 60
[2023-02-13] MEDS: Sertraline HCL 50 MG TABLET PO (09:54)
[2023-02-13] MEDS: cloZAPine 100 MG TABLET PO (09:54)
[2023-02-13] MEDS: lisinopriL 10 MG TABLET PO (09:54)
[2023-02-13] MEDS: Sennosides/Docusate Sodium TABLET 1 TAB PO (09:54)
[2023-02-13] MEDS: Perphenazine 4 MG TABLET PO ×2 (09:54→20:56)
[2023-02-13] MEDS: cloZAPine 25 MG TABLET PO (09:54)
[2023-02-13] MEDS: metFORMIN HCl ER 500 MG TAB.ER.24H 1000 MG PO ×2 (09:54→20:55)
[2023-02-13] MEDS: Ascorbic Acid 500 MG TABLET PO (09:54)
[2023-02-13] MEDS: Metoprolol Tartrate 25 MG TABLET PO ×2 (09:54→20:55)
[2023-02-13] MEDS: Ferrous Sulfate 324 MG TABLET.DR PO (09:54)
[2023-02-13 14:51] LABS: MANUAL DIFF FLAG NO
[2023-02-13 15:04] LABS: Valproate 32.1 mcg/mL (50.0-100.0)
[2023-02-13 15:05] LABS: Anion Gap 16 (12-20); Blood Urea Nitrogen 12 mg/dL (9-16); Calcium 9.1 mg/dL (8.4-10.2); Carbon Dioxide 23 mmol/L (22-29); Chloride 104 mmol/L (96-108); Creatinine Clr Calc Pharmacy 113.1; Estimated Glomerular Filt Rate > 60; Glucose Random 187 mg/dL (60-115); Potassium 3.8 mmol/L (3.3-5.1); Sodium 139 mmol/L (135-145)
[2023-02-13 15:08] LABS: Basophils Percent Auto 0.4 % (0-2); Eosinophils Absolute Auto 0.1 X10*3/uL (0.0-0.4); Eosinophils Percent Auto 1.1 % (0-4); Hematocrit 40.3 % (37.0-47.0); Hemoglobin 12.8 g/dl (12.0-16.0); Imm Gran Abs Auto 0.17 X10*3/uL (0.00-0.03); Imm Gran Pct Auto 1.5 % (0.0-0.4); Lymphocytes Absolute Auto 3.8 X10*3/uL (1.2-4.9); Lymphocytes Percent Auto 34.4 % (20-40); Mean Corpuscular HGB Conc 31.8 g/dl (31.0-35.0); Mean Corpuscular Hemoglobin 26.7 pg (27.0-33.0); Mean Platelet Volume 9.8 fL (9.4-12.3); Monocytes Absolute Auto 0.8 X10*3/uL (0.1-1.2); Monocytes Percent Auto 7.1 % (2-11); Neutrophils Absolute Auto 6.2 x10*3/uL (2.0-8.3); Neutrophils Percent Auto 55.5 % (45-73); Platelet Count 341 X10*3/uL (160-400); Red Cell Distribution Width 14.2 % (11.0-16.0); White Blood Count 11.1 X10*3/uL (4.8-10.8)
--- NOTE | 2023-02-13 15:31 | HO.PSYCHPN ---
Subjective Subjective Date of Service: 02/13/23 Reason For Visit: Psychosis Interim History: in bed, more active and responsive than yesterday. reports improving cough, diarrhea, rhinorrhea. AH and mood improving. per staff, not attending to ADLs. poor PO intake. vomiting and diarrhea yesterday. diarrhea overnight. no SOB. + rhinorrhea. decr AH. safe. slept. Mental Status Exam Mental Status Exam Narrative: Appearance: wearing hospital gown, adequately groomed Behavior: cooperative Psychomotor: no agitation or retardation noted TP: linear TC: no delusions or paranoia expressed Mood: improving Affect: normo-intense, non-labile, constricted SI: none expressed HI: none expressed AH: improved VH: none expressed Insight/judgment: fair x 2. Diagnostics Vital Signs (24Hr): Vital Signs - 24 hr 02/12/23 20:48 02/13/23 08:59 Temperature 96.9 F 97.0 F Pulse Rate 95 103 H Respiratory Rate 17 18 Blood Pressure 113/77 125/77 Pulse Oximetry 97 94 Oxygen Delivery Method Room Air Room Air BMI result Body Mass Index 42.9 Labs 02/13/23 14:48 02/13/23 14:48 Labs: Laboratory Results - last 48 hr 02/11/23 02/12/23 02/12/23 22:40 09:08 20:01 WBC RBC Hgb Hct MCV MCH MCHC RDW Plt Count MPV Immature Gran % (Auto) Neut % (Auto) Lymph % (Auto) Hopkins % (Auto) Eos % (Auto) Baso % (Auto) Lymph # (Auto) Hopkins # (Auto) Eos # (Auto) Baso # (Auto) Abs Immat Gran (auto) Absolute Neuts (auto) Absolute Nucleated RBC Nucleated RBC % (auto) Sodium Potassium Chloride Carbon Dioxide Anion Gap BUN Creatinine Estim Creat Clear Calc Estimated GFR POC Glucose 165 H 119 H 149 H Random Glucose Calcium Valproic Acid 02/13/23 02/13/23 02/13/23 08:36 08:47 14:48 WBC 11.1 H RBC 4.80 Hgb 12.8 Hct 40.3 MCV 84.0 MCH 26.7 L MCHC 31.8 RDW 14.2 Plt Count 341 MPV 9.8 Immature Gran % (Auto) 1.5 H Neut % (Auto) 55.5 Lymph % (Auto) 34.4 Hopkins % (Auto) 7.1 Eos % (Auto) 1.1 Baso % (Auto) 0.4 Lymph # (Auto) 3.8 Hopkins # (Auto) 0.8 Eos # (Auto) 0.1 Baso # (Auto) 0.0 Abs Immat Gran (auto) 0.17 H Absolute Neuts (auto) 4.3 6.2 Absolute Nucleated RBC 0.000 Nucleated RBC % (auto) 0.0 Sodium 139 Potassium 3.8 Chloride 104 Carbon Dioxide 23 Anion Gap 16 BUN 12 Creatinine 0.72 0.75 Estim Creat Clear Calc 117.9 113.1 Estimated GFR > 60 > 60 POC Glucose 138 H Random Glucose 187 H Calcium 9.1 Valproic Acid 32.1 L Medications Medications Current Medications Acetaminophen (Acetaminophen 325 Mg Tablet) 650 mg PO Q6H PRN PRN Reason: Headache/Pain Mild(1-3); fever Last Admin: 02/09/23 10:02 Dose: 650 mg Al Hydroxide/Mg Hydroxide (Magnesium Hydrox/Alum Hydrox 30 Ml Oral.Susp) 30 ml PO Q6H PRN PRN Reason: Heartburn/Nausea Ascorbic Acid (Ascorbic Acid 500 Mg Tablet) 500 mg PO DAILY [facility] Last Admin: 02/13/23 09:54 Dose: 500 mg Benzocaine (Throat Lozenge, Medicated Lozenge) 1 lozenge MUCOUS MEM Q1H PRN PRN Reason: Sore Throat Last Admin: 02/09/23 10:02 Dose: 1 lozenge Clozapine (Clozapine 25 Mg Tablet) 25 mg PO DAILY [facility] Last Admin: 02/13/23 09:54 Dose: 25 mg Clozapine (Clozapine 100 Mg Tablet) 100 mg PO DAILY [facility] Last Admin: 02/13/23 09:54 Dose: 100 mg Clozapine (Clozapine 100 Mg Tablet) 300 mg PO BEDTIME [facility] Last Admin: 02/12/23 20:55 Dose: 300 mg Divalproex Sodium (Divalproex Sodium Er 500 Mg Tab.Er.24h) 2,500 mg PO BEDTIME [facility] Last Admin: 02/12/23 20:59 Dose: 2,500 mg Docusate Sodium (Docusate Sodium 100 Mg Capsule) 100 mg PO BID PRN PRN Reason: Constipation Ferrous Sulfate (Ferrous Sulfate 324 Mg Tablet.Dr) 324 mg PO DAILY [facility] Last Admin: 02/13/23 09:54 Dose: 324 mg Hydroxyzine HCl (Hydroxyzine Hcl 25 Mg Tablet) 25 mg PO Q6H PRN PRN Reason: Anxiety Ibuprofen (Ibuprofen 600 Mg Tablet) 600 mg PO Q8H PRN PRN Reason: Pain, Mild (Pain Scale 1-3) Last Admin: 02/08/23 16:11 Dose: 600 mg Insulin Glargine (Insulin Glargine,Hum.Rec.Anlog 100 Unit/Ml 10 Ml Vial) 70 unit SUBCUT BEDTIME [facility] Last Admin: 02/12/23 20:58 Dose: 70 unit Lisinopril (Lisinopril 10 Mg Tablet) 10 mg PO DAILY [facility]; Protocol Last Admin: 02/13/23 09:54 Dose: 10 mg Loperamide HCl (Loperamide Hcl 2 Mg Capsule) 2 mg PO Q4H PRN PRN Reason: Diarrhea Last Admin: 02/12/23 21:51 Dose: 2 mg Magnesium Hydroxide (Milk Of Magnesia 30 Ml Oral.Susp) 30 ml PO DAILY PRN PRN Reason: Constipation Metformin HCl (Metformin Hcl Er 500 Mg Tab.Er.24h) 1,000 mg PO BID [facility] Last Admin: 02/13/23 09:54 Dose: 1,000 mg Metoprolol Tartrate (Metoprolol Tartrate 25 Mg Tablet) 25 mg PO BID [facility]; Protocol Last Admin: 02/13/23 09:54 Dose: 25 mg Nicotine Polacrilex (Nicotine Polacrilex 2 Mg Gum) 4 mg BUCCAL Q2H PRN PRN Reason: Nicotine Cravings Pt Own (Dulaglutide [Trulicity] 1.5 Mg/0 .5 Ml Pen Injector) 0.5 ml SUBCUT Cortes@0900 [facility] Last Admin: 02/10/23 09:53 Dose: 0.5 ml Omeprazole (Omeprazole 20 Mg Capsule.Dr) 20 mg PO DAILY@0630 [facility] Last Admin: 02/13/23 06:38 Dose: 20 mg Ondansetron HCl (Ondansetron Odt 4 Mg Tab.Rapdis) 4 mg TRANSLINGU Q6H PRN PRN Reason: Nausea and Vomiting Last Admin: 02/08/23 16:11 Dose: 4 mg Perphenazine (Perphenazine 4 Mg Tablet) 4 mg PO BID [facility] Last Admin: 02/13/23 09:54 Dose: 4 mg Senna/Docusate Sodium (Sennosides/Docusate Sodium Tablet) 1 tab PO DAILY [facility] Last Admin: 02/13/23 09:54 Dose: 1 tab Sertraline HCl (Sertraline Hcl 50 Mg Tablet) 50 mg PO DAILY [facility] Last Admin: 02/13/23 09:54 Dose: 50 mg Trazodone HCl (Trazodone Hcl 50 Mg Tablet) 50 mg PO BEDTIME MRX1 PRN PRN Reason: Insomnia Allergies Allergies Allergy/AdvReac Type Severity Reaction Status Date / Time Sulfa (Sulfonamide Allergy Intermediate PUFFY EYES Verified 04/22/22 06:14 Antibiotics) [SULFA (SULFONAMIDE ANTIBIOTICS)] Penicillins [PENICILLINS] Allergy Mild PT STATES Verified 04/22/22 06:14 NOTHING HAPPENS, ALLG LISTED ON TRANF SHEET Assessment & Plan Assessment & Plan (1) Schizophrenia: Qualifiers: Schizophrenia type: paranoid schizophrenia Qualified Code(s): F20.0 - Paranoid schizophrenia Status: Acute Code(s): F20.9 - Schizophrenia, unspecified Plan 01/23: increase VPA from 1000 mg QHS to 2000 mg QHS as of tonight. otherwise continue current mgmt. 01/24: appears unchanged from yesterday. malodorous, very poor hygiene, unkempt and disheveled. continue current mgmt. plan to increase VPA to 2500 mg in a day or two, as that is more likely to be a therapeutic dose. 01/25: increase VPA to 2500 mg QHS as of tonight. check level in 5 days. observe for resolution of mood and psychotic Sx. T/C increase clozapine dosing if mood stabilizer at therapeutic serum level is not effective. 01/26/2023: No changes to current plan 01/27: no changes 01/28: continue current mgmt. seems to have improved somewhat from admission. check labs weds juan m. 01/29: stabilizing. less affectively intense or labile. continue current mgmt. labs tomorrow juan m. 01/30: full range of affect today, spending more time out of room. remains in bed much of the time, however. labs tonight. 01/31: stable improvements. VPA level 43.6, pt declines increase. AH decreasing. continue current mgmt. 02/01 continue tx. 02/02 continue tx. 02/03 continue tx. 02/04: mood improved, AH much improved. continue current mgmt for now. begin to discuss dispo. 02/05: COVID POS. continue current mgmt. in isolation. 02/06: no substantial change in status. mild URI Sx. continue current mgmt. 02/07: febrile, aches, vomiting. paxlovid started x 5 days. otherwise continue current mgmt. 02/08: febrile, symptomatic of COVID. continue paxlovid and supportive care. aware paxlovid may alter serum levels of medications and more time may be required for psych stabilization. 02/10: Continue current treatment plan. 02/11: continues feeling ill from COVID, body aches and vomiting. continue current mgmt. 02/12: continues medically ill from COVID. moderate worsening of psych Sx concurrently. continue supportive care and current medications regimen. 02/13: starting to feel better from COVID. mod and AH also improving. continue current mgmt. Reason for continued inpatient stay Substantial Risk for: inability to function and rapid decompensation Time Spent With Patient Time: Total time managing care of this patient today __25__ minutes.
[2023-02-13 20:42] LABS: Glucose, Whole Blood 172 mg/dL (60-115)
[2023-02-13 20:52] VITALS: BP 109/60; PULSE 107; TEMP 36.2; O2SAT 98
[2023-02-13] MEDS: Insulin Glargine,Hum.rec.anlog 100 UNIT/ML 10 ML VIAL 70 UNIT SUBCUT (20:54)
[2023-02-13] MEDS: Divalproex Sodium ER 500 MG TAB.ER.24H 2500 MG PO (20:55)
[2023-02-13] MEDS: cloZAPine 100 MG TABLET 300 MG PO (20:55)
[2023-02-14] MEDS: Omeprazole 20 MG CAPSULE.DR PO (06:52)
[2023-02-14 07:00] VITALS: BMI 43.0
[2023-02-14 08:30] VITALS: BP 127/72; PULSE 105; RESP 16; TEMP 36.3; O2SAT 98
[2023-02-14] MEDS: metFORMIN HCl ER 500 MG TAB.ER.24H 1000 MG PO ×2 (08:33→20:48)
[2023-02-14] MEDS: Ferrous Sulfate 324 MG TABLET.DR PO (08:33)
[2023-02-14] MEDS: Metoprolol Tartrate 25 MG TABLET PO ×2 (08:33→20:48)
[2023-02-14] MEDS: Ascorbic Acid 500 MG TABLET PO (08:33)
[2023-02-14] MEDS: cloZAPine 100 MG TABLET PO (08:33)
[2023-02-14] MEDS: lisinopriL 10 MG TABLET PO (08:33)
[2023-02-14] MEDS: Sertraline HCL 50 MG TABLET PO (08:34)
[2023-02-14] MEDS: Perphenazine 4 MG TABLET PO ×2 (08:34→20:48)
[2023-02-14] MEDS: cloZAPine 25 MG TABLET PO (08:34)
[2023-02-14 09:08] LABS: Glucose, Whole Blood 120 mg/dL (60-115)
--- NOTE | 2023-02-14 15:44 | P.PNPSI_ITS ---
Subjective Subjective Date of Service: 02/14/23 Reason For Visit: Psychosis Interim History: stable presentation. nausea, diarrhea, cough, congestion continue. mood somewhat improved, AH improved. continue current mgmt. per staff, productive cough. AH improved. no anx/dep. showering daily past 2 days. Mental Status Exam Mental Status Exam Narrative: Appearance: wearing hospital gown, adequately groomed Behavior: cooperative Psychomotor: no agitation or retardation noted TP: linear TC: no delusions or paranoia expressed Mood: just tired Affect: normo-intense, non-labile, constricted SI: none expressed HI: none expressed AH: improved VH: none expressed Insight/judgment: fair x 2. Diagnostics Vital Signs (24Hr): Vital Signs - 24 hr 02/13/23 20:52 02/14/23 08:30 Temperature 97.2 F 97.3 F Pulse Rate 107 H 105 H Respiratory Rate 16 Blood Pressure 109/60 127/72 Pulse Oximetry 98 98 Oxygen Delivery Method Room Air Room Air BMI result Body Mass Index 43.0 Labs 02/13/23 14:48 02/13/23 14:48 Labs: Laboratory Results - last 48 hr 02/12/23 02/13/23 02/13/23 20:01 08:36 08:47 WBC RBC Hgb Hct MCV MCH MCHC RDW Plt Count MPV Immature Gran % (Auto) Neut % (Auto) Lymph % (Auto) [place] % (Auto) Eos % (Auto) Baso % (Auto) Lymph # (Auto) [place] # (Auto) Eos # (Auto) Baso # (Auto) Abs Immat Gran (auto) Absolute Neuts (auto) 4.3 Absolute Nucleated RBC Nucleated RBC % (auto) Sodium Potassium Chloride Carbon Dioxide Anion Gap BUN Creatinine 0.72 Estim Creat Clear Calc 117.9 Estimated GFR > 60 POC Glucose 149 H 138 H Random Glucose Calcium Valproic Acid 02/13/23 02/13/23 02/14/23 14:48 20:37 08:09 WBC 11.1 H RBC 4.80 Hgb 12.8 Hct 40.3 MCV 84.0 MCH 26.7 L MCHC 31.8 RDW 14.2 Plt Count 341 MPV 9.8 Immature Gran % (Auto) 1.5 H Neut % (Auto) 55.5 Lymph % (Auto) 34.4 [place] % (Auto) 7.1 Eos % (Auto) 1.1 Baso % (Auto) 0.4 Lymph # (Auto) 3.8 [place] # (Auto) 0.8 Eos # (Auto) 0.1 Baso # (Auto) 0.0 Abs Immat Gran (auto) 0.17 H Absolute Neuts (auto) 6.2 Absolute Nucleated RBC 0.000 Nucleated RBC % (auto) 0.0 Sodium 139 Potassium 3.8 Chloride 104 Carbon Dioxide 23 Anion Gap 16 BUN 12 Creatinine 0.75 Estim Creat Clear Calc 113.1 Estimated GFR > 60 POC Glucose 172 H 120 H Random Glucose 187 H Calcium 9.1 Valproic Acid 32.1 L Imaging Radiology Impressions: ITS Impressions Chest X-Ray 02/13/23 15:18 IMPRESSION: Unremarkable examination. Medications Medications Current Medications Acetaminophen (Acetaminophen 325 Mg Tablet) 650 mg PO Q6H PRN PRN Reason: Headache/Pain Mild(1-3); fever Last Admin: 02/09/23 10:02 Dose: 650 mg Al Hydroxide/Mg Hydroxide (Magnesium Hydrox/Alum Hydrox 30 Ml Oral.Susp) 30 ml PO Q6H PRN PRN Reason: Heartburn/Nausea Ascorbic Acid (Ascorbic Acid 500 Mg Tablet) 500 mg PO DAILY [facility] Last Admin: 02/14/23 08:33 Dose: 500 mg Benzocaine (Throat Lozenge, Medicated Lozenge) 1 lozenge MUCOUS MEM Q1H PRN PRN Reason: Sore Throat Last Admin: 02/09/23 10:02 Dose: 1 lozenge Clozapine (Clozapine 25 Mg Tablet) 25 mg PO DAILY [facility] Last Admin: 02/14/23 08:34 Dose: 25 mg Clozapine (Clozapine 100 Mg Tablet) 100 mg PO DAILY [facility] Last Admin: 02/14/23 08:33 Dose: 100 mg Clozapine (Clozapine 100 Mg Tablet) 300 mg PO BEDTIME [facility] Last Admin: 02/13/23 20:55 Dose: 300 mg Divalproex Sodium (Divalproex Sodium Er 500 Mg Tab.Er.24h) 2,500 mg PO BEDTIME [facility] Last Admin: 02/13/23 20:55 Dose: 2,500 mg Docusate Sodium (Docusate Sodium 100 Mg Capsule) 100 mg PO BID PRN PRN Reason: Constipation Ferrous Sulfate (Ferrous Sulfate 324 Mg Tablet.Dr) 324 mg PO DAILY [facility] Last Admin: 02/14/23 08:33 Dose: 324 mg Hydroxyzine HCl (Hydroxyzine Hcl 25 Mg Tablet) 25 mg PO Q6H PRN PRN Reason: Anxiety Ibuprofen (Ibuprofen 600 Mg Tablet) 600 mg PO Q8H PRN PRN Reason: Pain, Mild (Pain Scale 1-3) Last Admin: 02/08/23 16:11 Dose: 600 mg Insulin Glargine (Insulin Glargine,Hum.Rec.Anlog 100 Unit/Ml 10 Ml Vial) 70 unit SUBCUT BEDTIME [facility] Last Admin: 02/13/23 20:54 Dose: 70 unit Lisinopril (Lisinopril 10 Mg Tablet) 10 mg PO DAILY [facility]; Protocol Last Admin: 02/14/23 08:33 Dose: 10 mg Loperamide HCl (Loperamide Hcl 2 Mg Capsule) 2 mg PO Q4H PRN PRN Reason: Diarrhea Last Admin: 02/12/23 21:51 Dose: 2 mg Magnesium Hydroxide (Milk Of Magnesia 30 Ml Oral.Susp) 30 ml PO DAILY PRN PRN Reason: Constipation Metformin HCl (Metformin Hcl Er 500 Mg Tab.Er.24h) 1,000 mg PO BID [facility] Last Admin: 02/14/23 08:33 Dose: 1,000 mg Metoprolol Tartrate (Metoprolol Tartrate 25 Mg Tablet) 25 mg PO BID [facility]; Protocol Last Admin: 02/14/23 08:33 Dose: 25 mg Nicotine Polacrilex (Nicotine Polacrilex 2 Mg Gum) 4 mg BUCCAL Q2H PRN PRN Reason: Nicotine Cravings Pt Own (Dulaglutide [Trulicity] 1.5 Mg/0 .5 Ml Pen Injector) 0.5 ml SUBCUT [place]@0900 [facility] Last Admin: 02/10/23 09:53 Dose: 0.5 ml Omeprazole (Omeprazole 20 Mg Capsule.Dr) 20 mg PO DAILY@0630 [facility] Last Admin: 02/14/23 06:52 Dose: 20 mg Ondansetron HCl (Ondansetron Odt 4 Mg Tab.Rapdis) 4 mg TRANSLINGU Q6H PRN PRN Reason: Nausea and Vomiting Last Admin: 02/08/23 16:11 Dose: 4 mg Perphenazine (Perphenazine 4 Mg Tablet) 4 mg PO BID [facility] Last Admin: 02/14/23 08:34 Dose: 4 mg Senna/Docusate Sodium (Sennosides/Docusate Sodium Tablet) 1 tab PO DAILY [facility] Last Admin: 02/14/23 08:37 Dose: Not Given Sertraline HCl (Sertraline Hcl 50 Mg Tablet) 50 mg PO DAILY [facility] Last Admin: 02/14/23 08:34 Dose: 50 mg Trazodone HCl (Trazodone Hcl 50 Mg Tablet) 50 mg PO BEDTIME MRX1 PRN PRN Reason: Insomnia Allergies Allergies Allergy/AdvReac Type Severity Reaction Status Date / Time Sulfa (Sulfonamide Allergy Intermediate PUFFY EYES Verified 04/22/22 06:14 Antibiotics) [SULFA (SULFONAMIDE ANTIBIOTICS)] Penicillins [PENICILLINS] Allergy Mild PT STATES Verified 04/22/22 06:14 NOTHING HAPPENS, ALLG LISTED ON TRANF SHEET Assessment & Plan Assessment & Plan (1) Schizophrenia: Qualifiers: Schizophrenia type: paranoid schizophrenia Qualified Code(s): F20.0 - Paranoid schizophrenia Status: Acute Code(s): F20.9 - Schizophrenia, unspecified Plan 01/23: increase VPA from 1000 mg QHS to 2000 mg QHS as of tonight. otherwise continue current mgmt. 01/24: appears unchanged from yesterday. malodorous, very poor hygiene, unkempt and disheveled. continue current mgmt. plan to increase VPA to 2500 mg in a day or two, as that is more likely to be a therapeutic dose. 01/25: increase VPA to 2500 mg QHS as of tonight. check level in 5 days. observe for resolution of mood and psychotic Sx. T/C increase clozapine dosing if mood stabilizer at therapeutic serum level is not effective. 01/26/2023: No changes to current plan 01/27: no changes 01/28: continue current mgmt. seems to have improved somewhat from admission. check labs weds juan m. 01/29: stabilizing. less affectively intense or labile. continue current mgmt. labs tomorrow juan m. 01/30: full range of affect today, spending more time out of room. remains in bed much of the time, however. labs tonight. 01/31: stable improvements. VPA level 43.6, pt declines increase. AH decreasing. continue current mgmt. 02/01 continue tx. 02/02 continue tx. 02/03 continue tx. 02/04: mood improved, AH much improved. continue current mgmt for now. begin to discuss dispo. 02/05: COVID POS. continue current mgmt. in isolation. 02/06: no substantial change in status. mild URI Sx. continue current mgmt. 02/07: febrile, aches, vomiting. paxlovid started x 5 days. otherwise continue current mgmt. 02/08: febrile, symptomatic of COVID. continue paxlovid and supportive care. aware paxlovid may alter serum levels of medications and more time may be required for psych stabilization. 02/10: Continue current treatment plan. 02/11: continues feeling ill from COVID, body aches and vomiting. continue current mgmt. 02/12: continues medically ill from COVID. moderate worsening of psych Sx concurrently. continue supportive care and current medications regimen. 02/13: starting to feel better from COVID. mood and AH also improving. continue current mgmt. 02/14: COVID Sx continue. mood and AH remain improved. continue current mgmt. planning for discharge early next week, pt informed. Reason for continued inpatient stay Substantial Risk for: inability to function and rapid decompensation Time Spent With Patient Time: Total time managing care of this patient today _25___ minutes.
[2023-02-14 20:46] VITALS: BP 133/70; PULSE 107; RESP 18; TEMP 36.2; O2SAT 98
[2023-02-14] MEDS: cloZAPine 100 MG TABLET 300 MG PO (20:48)
[2023-02-14] MEDS: Ibuprofen 600 MG TABLET PO (20:49)
[2023-02-14] MEDS: Divalproex Sodium ER 500 MG TAB.ER.24H 2500 MG PO (20:49)
[2023-02-14] MEDS: Insulin Glargine,Hum.rec.anlog 100 UNIT/ML 10 ML VIAL 70 UNIT SUBCUT (20:52)
[2023-02-14 21:04] LABS: Glucose, Whole Blood 177 mg/dL (60-115)
[2023-02-15] MEDS: Omeprazole 20 MG CAPSULE.DR PO (07:12)
[2023-02-15] MEDS: metFORMIN HCl ER 500 MG TAB.ER.24H 1000 MG PO ×2 (08:26→20:50)
[2023-02-15] MEDS: Perphenazine 4 MG TABLET PO ×2 (08:27→20:50)
[2023-02-15] MEDS: Metoprolol Tartrate 25 MG TABLET PO ×2 (08:27→20:49)
[2023-02-15] MEDS: Ascorbic Acid 500 MG TABLET PO (08:27)
[2023-02-15] MEDS: Ferrous Sulfate 324 MG TABLET.DR PO (08:27)
[2023-02-15] MEDS: Sertraline HCL 50 MG TABLET PO (08:27)
[2023-02-15] MEDS: cloZAPine 100 MG TABLET PO (08:28)
[2023-02-15] MEDS: lisinopriL 10 MG TABLET PO (08:28)
[2023-02-15] MEDS: cloZAPine 25 MG TABLET PO (08:28)
[2023-02-15 09:15] LABS: Glucose, Whole Blood 129 mg/dL (60-115)
[2023-02-15 09:40] VITALS: BP 130/70; PULSE 102; RESP 18; TEMP 36.4; O2SAT 98
--- NOTE | 2023-02-15 15:28 | P.PNPSI_ITS ---
Subjective Subjective Date of Service: 02/15/23 Reason For Visit: Psychosis Interim History: bright affect, says she is feeling better both physically and mentally. planning for DC early next week. per staff, showered. taking meds. AH improved. productive cough. diarrhea. Mental Status Exam Mental Status Exam Narrative: Appearance: wearing hospital gown, adequately groomed Behavior: cooperative Psychomotor: no agitation or retardation noted TP: linear TC: no delusions or paranoia expressed Mood: better Affect: normo-intense, non-labile, full range SI: none expressed HI: none expressed AH: improved VH: none expressed Insight/judgment: fair x 2. Diagnostics Vital Signs (24Hr): Vital Signs - 24 hr 02/14/23 20:46 Temperature 97.2 F Pulse Rate 107 H Respiratory Rate 18 Blood Pressure 133/70 Pulse Oximetry 98 Oxygen Delivery Method Room Air BMI result Body Mass Index 43.0 Labs 02/13/23 14:48 02/13/23 14:48 Labs: Laboratory Results - last 48 hr 02/13/23 02/14/23 02/14/23 20:37 08:09 20:59 POC Glucose 172 H 120 H 177 H 02/15/23 08:23 POC Glucose 129 H Imaging Radiology Impressions: ITS Impressions Chest X-Ray 02/13/23 15:18 IMPRESSION: Unremarkable examination. Medications Medications Current Medications Acetaminophen (Acetaminophen 325 Mg Tablet) 650 mg PO Q6H PRN PRN Reason: Headache/Pain Mild(1-3); fever Last Admin: 02/09/23 10:02 Dose: 650 mg Al Hydroxide/Mg Hydroxide (Magnesium Hydrox/Alum Hydrox 30 Ml Oral.Susp) 30 ml PO Q6H PRN PRN Reason: Heartburn/Nausea Ascorbic Acid (Ascorbic Acid 500 Mg Tablet) 500 mg PO DAILY [facility] Last Admin: 02/15/23 08:27 Dose: 500 mg Benzocaine (Throat Lozenge, Medicated Lozenge) 1 lozenge MUCOUS MEM Q1H PRN PRN Reason: Sore Throat Last Admin: 02/09/23 10:02 Dose: 1 lozenge Clozapine (Clozapine 25 Mg Tablet) 25 mg PO DAILY [facility] Last Admin: 02/15/23 08:28 Dose: 25 mg Clozapine (Clozapine 100 Mg Tablet) 100 mg PO DAILY [facility] Last Admin: 02/15/23 08:28 Dose: 100 mg Clozapine (Clozapine 100 Mg Tablet) 300 mg PO BEDTIME [facility] Last Admin: 02/14/23 20:48 Dose: 300 mg Divalproex Sodium (Divalproex Sodium Er 500 Mg Tab.Er.24h) 2,500 mg PO BEDTIME [facility] Last Admin: 02/14/23 20:49 Dose: 2,500 mg Docusate Sodium (Docusate Sodium 100 Mg Capsule) 100 mg PO BID PRN PRN Reason: Constipation Ferrous Sulfate (Ferrous Sulfate 324 Mg Tablet.Dr) 324 mg PO DAILY [facility] Last Admin: 02/15/23 08:27 Dose: 324 mg Hydroxyzine HCl (Hydroxyzine Hcl 25 Mg Tablet) 25 mg PO Q6H PRN PRN Reason: Anxiety Ibuprofen (Ibuprofen 600 Mg Tablet) 600 mg PO Q8H PRN PRN Reason: Pain, Mild (Pain Scale 1-3) Last Admin: 02/14/23 20:49 Dose: 600 mg Insulin Glargine (Insulin Glargine,Hum.Rec.Anlog 100 Unit/Ml 10 Ml Vial) 70 unit SUBCUT BEDTIME [facility] Last Admin: 02/14/23 20:52 Dose: 70 unit Lisinopril (Lisinopril 10 Mg Tablet) 10 mg PO DAILY [facility]; Protocol Last Admin: 02/15/23 08:28 Dose: 10 mg Loperamide HCl (Loperamide Hcl 2 Mg Capsule) 2 mg PO Q4H PRN PRN Reason: Diarrhea Last Admin: 02/12/23 21:51 Dose: 2 mg Magnesium Hydroxide (Milk Of Magnesia 30 Ml Oral.Susp) 30 ml PO DAILY PRN PRN Reason: Constipation Metformin HCl (Metformin Hcl Er 500 Mg Tab.Er.24h) 1,000 mg PO BID [facility] Last Admin: 02/15/23 08:26 Dose: 1,000 mg Metoprolol Tartrate (Metoprolol Tartrate 25 Mg Tablet) 25 mg PO BID [facility]; Protocol Last Admin: 02/15/23 08:27 Dose: 25 mg Nicotine Polacrilex (Nicotine Polacrilex 2 Mg Gum) 4 mg BUCCAL Q2H PRN PRN Reason: Nicotine Cravings Pt Own (Dulaglutide [Trulicity] 1.5 Mg/0 .5 Ml Pen Injector) 0.5 ml SUBCUT Cortes@0900 [facility] Last Admin: 02/10/23 09:53 Dose: 0.5 ml Omeprazole (Omeprazole 20 Mg Capsule.Dr) 20 mg PO DAILY@0630 [facility] Last Admin: 02/15/23 07:12 Dose: 20 mg Ondansetron HCl (Ondansetron Odt 4 Mg Tab.Rapdis) 4 mg TRANSLINGU Q6H PRN PRN Reason: Nausea and Vomiting Last Admin: 02/08/23 16:11 Dose: 4 mg Perphenazine (Perphenazine 4 Mg Tablet) 4 mg PO BID [facility] Last Admin: 02/15/23 08:27 Dose: 4 mg Senna/Docusate Sodium (Sennosides/Docusate Sodium Tablet) 1 tab PO DAILY [facility] Last Admin: 02/15/23 08:27 Dose: Not Given Sertraline HCl (Sertraline Hcl 50 Mg Tablet) 50 mg PO DAILY [facility] Last Admin: 02/15/23 08:27 Dose: 50 mg Trazodone HCl (Trazodone Hcl 50 Mg Tablet) 50 mg PO BEDTIME MRX1 PRN PRN Reason: Insomnia Allergies Allergies Allergy/AdvReac Type Severity Reaction Status Date / Time Sulfa (Sulfonamide Allergy Intermediate PUFFY EYES Verified 04/22/22 06:14 Antibiotics) [SULFA (SULFONAMIDE ANTIBIOTICS)] Penicillins [PENICILLINS] Allergy Mild PT STATES Verified 04/22/22 06:14 NOTHING HAPPENS, ALLG LISTED ON TRANF SHEET Assessment & Plan Assessment & Plan (1) Schizophrenia: Qualifiers: Schizophrenia type: paranoid schizophrenia Qualified Code(s): F20.0 - Paranoid schizophrenia Status: Acute Code(s): F20.9 - Schizophrenia, unspecified Plan 01/23: increase VPA from 1000 mg QHS to 2000 mg QHS as of tonight. otherwise continue current mgmt. 01/24: appears unchanged from yesterday. malodorous, very poor hygiene, unkempt and disheveled. continue current mgmt. plan to increase VPA to 2500 mg in a day or two, as that is more likely to be a therapeutic dose. 01/25: increase VPA to 2500 mg QHS as of tonight. check level in 5 days. observe for resolution of mood and psychotic Sx. T/C increase clozapine dosing if mood stabilizer at therapeutic serum level is not effective. 01/26/2023: No changes to current plan 01/27: no changes 01/28: continue current mgmt. seems to have improved somewhat from admission. check labs weds juan m. 01/29: stabilizing. less affectively intense or labile. continue current mgmt. labs tomorrow juan m. 01/30: full range of affect today, spending more time out of room. remains in bed much of the time, however. labs tonight. 01/31: stable improvements. VPA level 43.6, pt declines increase. AH decreasing. continue current mgmt. 02/01 continue tx. 02/02 continue tx. 02/03 continue tx. 02/04: mood improved, AH much improved. continue current mgmt for now. begin to discuss dispo. 02/05: COVID POS. continue current mgmt. in isolation. 02/06: no substantial change in status. mild URI Sx. continue current mgmt. 02/07: febrile, aches, vomiting. paxlovid started x 5 days. otherwise continue current mgmt. 02/08: febrile, symptomatic of COVID. continue paxlovid and supportive care. aware paxlovid may alter serum levels of medications and more time may be required for psych stabilization. 02/10: Continue current treatment plan. 02/11: continues feeling ill from COVID, body aches and vomiting. continue current mgmt. 02/12: continues medically ill from COVID. moderate worsening of psych Sx concurrently. continue supportive care and current medications regimen. 02/13: starting to feel better from COVID. mood and AH also improving. continue current mgmt. 02/14: COVID Sx continue. mood and AH remain improved. continue current mgmt. planning for discharge early next week, pt informed. 02/15: affect brighter today than at any time prior. getting over COVID Sx. mood/AH improving again as well. planning for saturday discharge. Reason for continued inpatient stay Substantial Risk for: harm to self, inability to function and rapid decompensation Time Spent With Patient Time: Total time managing care of this patient today ____ minutes.
[2023-02-15 20:23] LABS: Glucose, Whole Blood 241 mg/dL (60-115)
[2023-02-15 20:28] VITALS: BP 142/83; PULSE 104; RESP 18; TEMP 36.1; O2SAT 97
[2023-02-15] MEDS: Insulin Glargine,Hum.rec.anlog 100 UNIT/ML 10 ML VIAL 70 UNIT SUBCUT (20:48)
[2023-02-15] MEDS: cloZAPine 100 MG TABLET 300 MG PO (20:49)
[2023-02-15] MEDS: Divalproex Sodium ER 500 MG TAB.ER.24H 2500 MG PO (20:50)
[2023-02-15] MEDS: Docusate Sodium 100 MG CAPSULE PO (20:50)
[2023-02-16 08:11] LABS: Glucose, Whole Blood 144 mg/dL (60-115)
[2023-02-16] MEDS: lisinopriL 10 MG TABLET PO (08:42)
[2023-02-16] MEDS: Sertraline HCL 50 MG TABLET PO (08:42)
[2023-02-16] MEDS: Metoprolol Tartrate 25 MG TABLET PO ×2 (08:42→21:03)
[2023-02-16] MEDS: Ferrous Sulfate 324 MG TABLET.DR PO (08:42)
[2023-02-16] MEDS: Perphenazine 4 MG TABLET PO ×2 (08:42→21:03)
[2023-02-16] MEDS: metFORMIN HCl ER 500 MG TAB.ER.24H 1000 MG PO ×2 (08:42→21:03)
[2023-02-16] MEDS: cloZAPine 25 MG TABLET PO (08:43)
[2023-02-16] MEDS: Omeprazole 20 MG CAPSULE.DR PO (08:43)
[2023-02-16] MEDS: cloZAPine 100 MG TABLET PO (08:43)
[2023-02-16] MEDS: Ascorbic Acid 500 MG TABLET PO (08:43)
[2023-02-16 10:47] VITALS: BP 140/78; PULSE 122; TEMP 36.1; O2SAT 98
[2023-02-16 20:40] VITALS: BP 123/59; PULSE 99; RESP 18; TEMP 36.7; O2SAT 99
[2023-02-16 20:49] LABS: Glucose, Whole Blood 268 mg/dL (60-115)
[2023-02-16] MEDS: Divalproex Sodium ER 500 MG TAB.ER.24H 2500 MG PO (21:03)
[2023-02-16] MEDS: cloZAPine 100 MG TABLET 300 MG PO (21:03)
[2023-02-16] MEDS: Insulin Glargine,Hum.rec.anlog 100 UNIT/ML 10 ML VIAL 70 UNIT SUBCUT (21:05)
--- NOTE | 2023-02-16 22:47 | P.PNPSI_ITS ---
Subjective Subjective Date of Service: 02/16/23 Reason For Visit: Psychosis Interim History: daily improvements in physical and mental health continue. no questions or complaints. per staff, brighter, AH better. no respiratory or GI Sx. Mental Status Exam Mental Status Exam Narrative: Appearance: wearing hospital gown, adequately groomed Behavior: cooperative Psychomotor: no agitation or retardation noted TP: linear TC: no delusions or paranoia expressed Mood: better Affect: normo-intense, non-labile, full range SI: none expressed HI: none expressed AH: improved VH: none expressed Insight/judgment: fair x 2. Diagnostics Vital Signs (24Hr): Vital Signs - 24 hr 02/16/23 10:47 02/16/23 20:40 Temperature 97 F 98.0 F Pulse Rate 122 H 99 Respiratory Rate 18 Blood Pressure 140/78 H 123/59 L Pulse Oximetry 98 99 Oxygen Delivery Method Room Air Room Air BMI result Body Mass Index 43.0 Labs 02/13/23 14:48 02/13/23 14:48 Labs: Laboratory Results - last 48 hr 02/15/23 02/15/23 02/16/23 08:23 20:18 08:00 POC Glucose 129 H 241 H 144 H 02/16/23 20:39 POC Glucose 268 H Imaging Radiology Impressions: ITS Impressions Chest X-Ray 02/13/23 15:18 IMPRESSION: Unremarkable examination. Medications Medications Current Medications Acetaminophen (Acetaminophen 325 Mg Tablet) 650 mg PO Q6H PRN PRN Reason: Headache/Pain Mild(1-3); fever Last Admin: 02/09/23 10:02 Dose: 650 mg Al Hydroxide/Mg Hydroxide (Magnesium Hydrox/Alum Hydrox 30 Ml Oral.Susp) 30 ml PO Q6H PRN PRN Reason: Heartburn/Nausea Ascorbic Acid (Ascorbic Acid 500 Mg Tablet) 500 mg PO DAILY CARLEEN Last Admin: 02/16/23 08:43 Dose: 500 mg Benzocaine (Throat Lozenge, Medicated Lozenge) 1 lozenge MUCOUS MEM Q1H PRN PRN Reason: Sore Throat Last Admin: 02/09/23 10:02 Dose: 1 lozenge Clozapine (Clozapine 25 Mg Tablet) 25 mg PO DAILY CARLEEN Last Admin: 02/16/23 08:43 Dose: 25 mg Clozapine (Clozapine 100 Mg Tablet) 100 mg PO DAILY CARLEEN Last Admin: 02/16/23 08:43 Dose: 100 mg Clozapine (Clozapine 100 Mg Tablet) 300 mg PO BEDTIME CARLEEN Last Admin: 02/16/23 21:03 Dose: 300 mg Divalproex Sodium (Divalproex Sodium Er 500 Mg Tab.Er.24h) 2,500 mg PO BEDTIME CARLEEN Last Admin: 02/16/23 21:03 Dose: 2,500 mg Docusate Sodium (Docusate Sodium 100 Mg Capsule) 100 mg PO BID PRN PRN Reason: Constipation Last Admin: 02/15/23 20:50 Dose: 100 mg Ferrous Sulfate (Ferrous Sulfate 324 Mg Tablet.Dr) 324 mg PO DAILY [facility] Last Admin: 02/16/23 08:42 Dose: 324 mg Hydroxyzine HCl (Hydroxyzine Hcl 25 Mg Tablet) 25 mg PO Q6H PRN PRN Reason: Anxiety Ibuprofen (Ibuprofen 600 Mg Tablet) 600 mg PO Q8H PRN PRN Reason: Pain, Mild (Pain Scale 1-3) Last Admin: 02/14/23 20:49 Dose: 600 mg Insulin Glargine (Insulin Glargine,Hum.Rec.Anlog 100 Unit/Ml 10 Ml Vial) 70 unit SUBCUT BEDTIME [facility] Last Admin: 02/16/23 21:05 Dose: 70 unit Lisinopril (Lisinopril 10 Mg Tablet) 10 mg PO DAILY [facility]; Protocol Last Admin: 02/16/23 08:42 Dose: 10 mg Loperamide HCl (Loperamide Hcl 2 Mg Capsule) 2 mg PO Q4H PRN PRN Reason: Diarrhea Last Admin: 02/12/23 21:51 Dose: 2 mg Magnesium Hydroxide (Milk Of Magnesia 30 Ml Oral.Susp) 30 ml PO DAILY PRN PRN Reason: Constipation Metformin HCl (Metformin Hcl Er 500 Mg Tab.Er.24h) 1,000 mg PO BID [facility] Last Admin: 02/16/23 21:03 Dose: 1,000 mg Metoprolol Tartrate (Metoprolol Tartrate 25 Mg Tablet) 25 mg PO BID [facility]; Protocol Last Admin: 02/16/23 21:03 Dose: 25 mg Nicotine Polacrilex (Nicotine Polacrilex 2 Mg Gum) 4 mg BUCCAL Q2H PRN PRN Reason: Nicotine Cravings Pt Own (Dulaglutide [Trulicity] 1.5 Mg/0 .5 Ml Pen Injector) 0.5 ml SUBCUT Cortes@0900 [facility] Last Admin: 02/10/23 09:53 Dose: 0.5 ml Omeprazole (Omeprazole 20 Mg Capsule.Dr) 20 mg PO DAILY@0630 [facility] Last Admin: 02/16/23 08:43 Dose: 20 mg Ondansetron HCl (Ondansetron Odt 4 Mg Tab.Rapdis) 4 mg TRANSLINGU Q6H PRN PRN Reason: Nausea and Vomiting Last Admin: 02/08/23 16:11 Dose: 4 mg Perphenazine (Perphenazine 4 Mg Tablet) 4 mg PO BID [facility] Last Admin: 02/16/23 21:03 Dose: 4 mg Senna/Docusate Sodium (Sennosides/Docusate Sodium Tablet) 1 tab PO DAILY [facility] Last Admin: 02/15/23 08:27 Dose: Not Given Sertraline HCl (Sertraline Hcl 50 Mg Tablet) 50 mg PO DAILY [facility] Last Admin: 02/16/23 08:42 Dose: 50 mg Trazodone HCl (Trazodone Hcl 50 Mg Tablet) 50 mg PO BEDTIME MRX1 PRN PRN Reason: Insomnia Allergies Allergies Allergy/AdvReac Type Severity Reaction Status Date / Time Sulfa (Sulfonamide Allergy Intermediate PUFFY EYES Verified 04/22/22 06:14 Antibiotics) [SULFA (SULFONAMIDE ANTIBIOTICS)] Penicillins [PENICILLINS] Allergy Mild PT STATES Verified 04/22/22 06:14 NOTHING HAPPENS, ALLG LISTED ON TRANF SHEET Assessment & Plan Assessment & Plan (1) Schizophrenia: Qualifiers: Schizophrenia type: paranoid schizophrenia Qualified Code(s): F20.0 - Paranoid schizophrenia Status: Acute Code(s): F20.9 - Schizophrenia, unspecified Plan 01/23: increase VPA from 1000 mg QHS to 2000 mg QHS as of tonight. otherwise continue current mgmt. 01/24: appears unchanged from yesterday. malodorous, very poor hygiene, unkempt and disheveled. continue current mgmt. plan to increase VPA to 2500 mg in a day or two, as that is more likely to be a therapeutic dose. 01/25: increase VPA to 2500 mg QHS as of tonight. check level in 5 days. observe for resolution of mood and psychotic Sx. T/C increase clozapine dosing if mood stabilizer at therapeutic serum level is not effective. 01/26/2023: No changes to current plan 01/27: no changes 01/28: continue current mgmt. seems to have improved somewhat from admission. check labs weds jaun m. 01/29: stabilizing. less affectively intense or labile. continue current mgmt. labs tomorrow juan m. 01/30: full range of affect today, spending more time out of room. remains in bed much of the time, however. labs tonight. 01/31: stable improvements. VPA level 43.6, pt declines increase. AH decreasing. continue current mgmt. 02/01 continue tx. 02/02 continue tx. 02/03 continue tx. 02/04: mood improved, AH much improved. continue current mgmt for now. begin to discuss dispo. 02/05: COVID POS. continue current mgmt. in isolation. 02/06: no substantial change in status. mild URI Sx. continue current mgmt. 02/07: febrile, aches, vomiting. paxlovid started x 5 days. otherwise continue current mgmt. 02/08: febrile, symptomatic of COVID. continue paxlovid and supportive care. aware paxlovid may alter serum levels of medications and more time may be required for psych stabilization. 02/10: Continue current treatment plan. 02/11: continues feeling ill from COVID, body aches and vomiting. continue current mgmt. 02/12: continues medically ill from COVID. moderate worsening of psych Sx concurrently. continue supportive care and current medications regimen. 02/13: starting to feel better from COVID. mood and AH also improving. continue current mgmt. 02/14: COVID Sx continue. mood and AH remain improved. continue current mgmt. planning for discharge early next week, pt informed. 02/15: affect brighter today than at any time prior. getting over COVID Sx. mood/AH improving again as well. planning for saturday discharge. 02/16: continues to improve both physically and mentally. in track for saturday discharge. Reason for continued inpatient stay Substantial Risk for: inability to function and rapid decompensation Time Spent With Patient Time: Total time managing care of this patient today ____ minutes.
[2023-02-17 08:59] LABS: Glucose, Whole Blood 98 mg/dL (60-115)
[2023-02-17 09:19] VITALS: BP 131/78; PULSE 98; RESP 16; TEMP 36.2; O2SAT 97
[2023-02-17] MEDS: Ascorbic Acid 500 MG TABLET PO (09:20)
[2023-02-17] MEDS: cloZAPine 100 MG TABLET PO ×2 (09:20→20:05)
[2023-02-17] MEDS: Metoprolol Tartrate 25 MG TABLET PO ×2 (09:20→20:06)
[2023-02-17] MEDS: metFORMIN HCl ER 500 MG TAB.ER.24H 1000 MG PO ×2 (09:20→20:06)
[2023-02-17] MEDS: Ferrous Sulfate 324 MG TABLET.DR PO (09:20)
[2023-02-17] MEDS: Perphenazine 4 MG TABLET PO ×2 (09:20→20:06)
[2023-02-17] MEDS: lisinopriL 10 MG TABLET PO (09:20)
[2023-02-17] MEDS: Omeprazole 20 MG CAPSULE.DR PO (09:20)
[2023-02-17] MEDS: cloZAPine 25 MG TABLET PO (09:20)
[2023-02-17] MEDS: Sertraline HCL 50 MG TABLET PO (09:20)
[2023-02-17] MEDS: PT OWN (Dulaglutide [Trulicity] 1.5 mg/0.5 mL pen injector) 0.5 EACH SUBCUT (09:38)
--- NOTE | 2023-02-17 16:21 | P.PNPSI_ITS ---
Subjective Subjective Date of Service: 02/17/23 Reason For Visit: Psychosis Interim History: denies COVID Sx. mood improved. planning for saturday discharge. per staff, showering, brighter. URI Sx improved. Mental Status Exam Mental Status Exam Narrative: Appearance: wearing hospital gown, adequately groomed Behavior: cooperative Psychomotor: no agitation or retardation noted TP: linear TC: no delusions or paranoia expressed Mood: better Affect: normo-intense, non-labile, full range SI: none expressed HI: none expressed AH: improved VH: none expressed Insight/judgment: fair x 2. Diagnostics Vital Signs (24Hr): Vital Signs - 24 hr 02/16/23 20:40 02/17/23 09:19 Temperature 98.0 F 97.2 F Pulse Rate 99 98 Respiratory Rate 18 16 Blood Pressure 123/59 L 131/78 Pulse Oximetry 99 97 Oxygen Delivery Method Room Air Room Air BMI result Body Mass Index 43.0 Labs 02/13/23 14:48 02/13/23 14:48 Labs: Laboratory Results - last 48 hr 02/15/23 02/16/23 02/16/23 20:18 08:00 20:39 POC Glucose 241 H 144 H 268 H 02/17/23 08:53 POC Glucose 98 Imaging Radiology Impressions: ITS Impressions Chest X-Ray 02/13/23 15:18 IMPRESSION: Unremarkable examination. Medications Medications Current Medications Acetaminophen (Acetaminophen 325 Mg Tablet) 650 mg PO Q6H PRN PRN Reason: Headache/Pain Mild(1-3); fever Last Admin: 02/09/23 10:02 Dose: 650 mg Al Hydroxide/Mg Hydroxide (Magnesium Hydrox/Alum Hydrox 30 Ml Oral.Susp) 30 ml PO Q6H PRN PRN Reason: Heartburn/Nausea Ascorbic Acid (Ascorbic Acid 500 Mg Tablet) 500 mg PO DAILY CARLEEN Last Admin: 02/17/23 09:20 Dose: 500 mg Benzocaine (Throat Lozenge, Medicated Lozenge) 1 lozenge MUCOUS MEM Q1H PRN PRN Reason: Sore Throat Last Admin: 02/09/23 10:02 Dose: 1 lozenge Clozapine (Clozapine 25 Mg Tablet) 25 mg PO DAILY CARLEEN Last Admin: 02/17/23 09:20 Dose: 25 mg Clozapine (Clozapine 100 Mg Tablet) 100 mg PO DAILY CARLEEN Last Admin: 02/17/23 09:20 Dose: 100 mg Clozapine (Clozapine 100 Mg Tablet) 300 mg PO BEDTIME CARLEEN Last Admin: 02/16/23 21:03 Dose: 300 mg Divalproex Sodium (Divalproex Sodium Er 500 Mg Tab.Er.24h) 2,500 mg PO BEDTIME CARLEEN Last Admin: 02/16/23 21:03 Dose: 2,500 mg Docusate Sodium (Docusate Sodium 100 Mg Capsule) 100 mg PO BID PRN PRN Reason: Constipation Last Admin: 02/15/23 20:50 Dose: 100 mg Ferrous Sulfate (Ferrous Sulfate 324 Mg Tablet.Dr) 324 mg PO DAILY CARLEEN Last Admin: 02/17/23 09:20 Dose: 324 mg Hydroxyzine HCl (Hydroxyzine Hcl 25 Mg Tablet) 25 mg PO Q6H PRN PRN Reason: Anxiety Ibuprofen (Ibuprofen 600 Mg Tablet) 600 mg PO Q8H PRN PRN Reason: Pain, Mild (Pain Scale 1-3) Last Admin: 02/14/23 20:49 Dose: 600 mg Insulin Glargine (Insulin Glargine,Hum.Rec.Anlog 100 Unit/Ml 10 Ml Vial) 70 unit SUBCUT BEDTIME CARLEEN Last Admin: 02/16/23 21:05 Dose: 70 unit Lisinopril (Lisinopril 10 Mg Tablet) 10 mg PO DAILY [facility]; Protocol Last Admin: 02/17/23 09:20 Dose: 10 mg Loperamide HCl (Loperamide Hcl 2 Mg Capsule) 2 mg PO Q4H PRN PRN Reason: Diarrhea Last Admin: 02/12/23 21:51 Dose: 2 mg Magnesium Hydroxide (Milk Of Magnesia 30 Ml Oral.Susp) 30 ml PO DAILY PRN PRN Reason: Constipation Metformin HCl (Metformin Hcl Er 500 Mg Tab.Er.24h) 1,000 mg PO BID [facility] Last Admin: 02/17/23 09:20 Dose: 1,000 mg Metoprolol Tartrate (Metoprolol Tartrate 25 Mg Tablet) 25 mg PO BID [facility]; Protocol Last Admin: 02/17/23 09:20 Dose: 25 mg Nicotine Polacrilex (Nicotine Polacrilex 2 Mg Gum) 4 mg BUCCAL Q2H PRN PRN Reason: Nicotine Cravings Pt Own (Dulaglutide [Trulicity] 1.5 Mg/0 .5 Ml Pen Injector) 0.5 ml SUBCUT Cortes@0900 [facility] Last Admin: 02/17/23 09:38 Dose: 0.5 ml Omeprazole (Omeprazole 20 Mg Capsule.Dr) 20 mg PO DAILY@0630 [facility] Last Admin: 02/17/23 09:20 Dose: 20 mg Ondansetron HCl (Ondansetron Odt 4 Mg Tab.Rapdis) 4 mg TRANSLINGU Q6H PRN PRN Reason: Nausea and Vomiting Last Admin: 02/08/23 16:11 Dose: 4 mg Perphenazine (Perphenazine 4 Mg Tablet) 4 mg PO BID [facility] Last Admin: 02/17/23 09:20 Dose: 4 mg Senna/Docusate Sodium (Sennosides/Docusate Sodium Tablet) 1 tab PO DAILY [facility] Last Admin: 02/15/23 08:27 Dose: Not Given Sertraline HCl (Sertraline Hcl 50 Mg Tablet) 50 mg PO DAILY [facility] Last Admin: 02/17/23 09:20 Dose: 50 mg Trazodone HCl (Trazodone Hcl 50 Mg Tablet) 50 mg PO BEDTIME MRX1 PRN PRN Reason: Insomnia Allergies Allergies Allergy/AdvReac Type Severity Reaction Status Date / Time Sulfa (Sulfonamide Allergy Intermediate PUFFY EYES Verified 04/22/22 06:14 Antibiotics) [SULFA (SULFONAMIDE ANTIBIOTICS)] Penicillins [PENICILLINS] Allergy Mild PT STATES Verified 04/22/22 06:14 NOTHING HAPPENS, ALLG LISTED ON TRANF SHEET Assessment & Plan Assessment & Plan (1) Schizophrenia: Qualifiers: Schizophrenia type: paranoid schizophrenia Qualified Code(s): F20.0 - Paranoid schizophrenia Status: Acute Code(s): F20.9 - Schizophrenia, unspecified Plan 01/23: increase VPA from 1000 mg QHS to 2000 mg QHS as of tonight. otherwise continue current mgmt. 01/24: appears unchanged from yesterday. malodorous, very poor hygiene, unkempt and disheveled. continue current mgmt. plan to increase VPA to 2500 mg in a day or two, as that is more likely to be a therapeutic dose. 01/25: increase VPA to 2500 mg QHS as of tonight. check level in 5 days. observe for resolution of mood and psychotic Sx. T/C increase clozapine dosing if mood stabilizer at therapeutic serum level is not effective. 01/26/2023: No changes to current plan 01/27: no changes 01/28: continue current mgmt. seems to have improved somewhat from admission. check labs weds juan m. 01/29: stabilizing. less affectively intense or labile. continue current mgmt. labs tomorrow juan m. 01/30: full range of affect today, spending more time out of room. remains in bed much of the time, however. labs tonight. 01/31: stable improvements. VPA level 43.6, pt declines increase. AH decreasing. continue current mgmt. 02/01 continue tx. 02/02 continue tx. 02/03 continue tx. 02/04: mood improved, AH much improved. continue current mgmt for now. begin to discuss dispo. 02/05: COVID POS. continue current mgmt. in isolation. 02/06: no substantial change in status. mild URI Sx. continue current mgmt. 02/07: febrile, aches, vomiting. paxlovid started x 5 days. otherwise continue current mgmt. 02/08: febrile, symptomatic of COVID. continue paxlovid and supportive care. aware paxlovid may alter serum levels of medications and more time may be required for psych stabilization. 02/10: Continue current treatment plan. 02/11: continues feeling ill from COVID, body aches and vomiting. continue current mgmt. 02/12: continues medically ill from COVID. moderate worsening of psych Sx concurrently. continue supportive care and current medications regimen. 02/13: starting to feel better from COVID. mood and AH also improving. continue current mgmt. 02/14: COVID Sx continue. mood and AH remain improved. continue current mgmt. planning for discharge early next week, pt informed. 02/15: affect brighter today than at any time prior. getting over COVID Sx. mood/AH improving again as well. planning for saturday discharge. 02/16: continues to improve both physically and mentally. in track for saturday discharge. 02/17: no COVID Sx. mood and AH improved. saturday discharge. Reason for continued inpatient stay Substantial Risk for: inability to function and rapid decompensation Time Spent With Patient Time: Total time managing care of this patient today ____ minutes.
[2023-02-17 18:00] VITALS: BP 108/56; PULSE 108; RESP 18; TEMP 36.4; O2SAT 98
[2023-02-17] MEDS: Divalproex Sodium ER 500 MG TAB.ER.24H 2500 MG PO (20:04)
[2023-02-17] MEDS: Insulin Glargine,Hum.rec.anlog 100 UNIT/ML 10 ML VIAL 70 UNIT SUBCUT (20:11)
[2023-02-17] MEDS: cloZAPine 100 MG TABLET 300 MG PO (20:11)
[2023-02-17 20:21] LABS: Glucose, Whole Blood 190 mg/dL (60-115)
[2023-02-18] MEDS: Omeprazole 20 MG CAPSULE.DR PO (06:47)
[2023-02-18 08:10] LABS: Glucose, Whole Blood 115 mg/dL (60-115)
[2023-02-18 08:40] VITALS: BP 114/66; PULSE 111; RESP 16; TEMP 36.9; O2SAT 98
[2023-02-18] MEDS: Ferrous Sulfate 324 MG TABLET.DR PO (08:47)
[2023-02-18] MEDS: Ascorbic Acid 500 MG TABLET PO (08:47)
[2023-02-18] MEDS: Perphenazine 4 MG TABLET PO ×2 (08:47→21:29)
[2023-02-18] MEDS: metFORMIN HCl ER 500 MG TAB.ER.24H 1000 MG PO ×2 (08:47→21:29)
[2023-02-18] MEDS: cloZAPine 100 MG TABLET PO (08:47)
[2023-02-18] MEDS: cloZAPine 25 MG TABLET PO (08:48)
[2023-02-18] MEDS: Sertraline HCL 50 MG TABLET PO (08:48)
--- NOTE | 2023-02-18 11:19 | PM.PSYDC ---
DS: Providers Provider Date of Service: 02/18/23 Date of admission: 01/22/23 23:17 Primary care physician: Jd Guevara MD DS: Diagnosis Discharge Diagnosis (1) Schizophrenia: Status: Acute DS: Medications Discharge Medications Home Medications: Home Medications Medication Instructions Recorded Confirmed ascorbic acid (vitamin C) 500 mg 1 tab PO DAILY 03/07/22 01/22/23 tablet (Vitamin C) clozapine 100 mg tablet 3 tab PO BEDTIME 03/07/22 01/22/23 dulaglutide 1.5 mg/0.5 mL 0.5 ml subcut WE@0900 03/07/22 01/22/23 subcutaneous pen injector (Trulicity) ferrous sulfate 325 mg (65 mg 325 mg PO DAILY 03/07/22 01/22/23 iron) tablet insulin glargine 100 unit/mL (3 70 unit subcut BEDTIME 03/07/22 01/22/23 mL) subcutaneous pen (Lantus Solostar U-100 Insulin) metformin 500 mg tablet,extended 2 tab PO BID 03/07/22 01/22/23 release 24 hr metoprolol tartrate 25 mg tablet 1 tab PO BID 03/07/22 01/22/23 omeprazole 20 mg capsule,delayed 1 cap PO DAILY@0630 03/07/22 01/22/23 release perphenazine 4 mg tablet 1 tab PO BID 03/07/22 01/22/23 docusate sodium 100 mg capsule 100 mg PO BID PRN Constipation 04/21/22 01/22/23 (Colace) insulin aspart U-100 100 unit/mL 1 sliding scale dose subcut TIDAC 01/22/23 01/22/23 (3 mL) subcutaneous pen lisinopril 5 mg tablet 10 mg PO DAILY 01/22/23 01/22/23 sennosides 8.6 mg-docusate sodium 1 tab PO DAILY 01/22/23 01/22/23 50 mg tablet (Senna Plus) Previous Rx's Medication Instructions Recorded clozapine 100 mg tablet 100 mg PO DAILY 30 days #30 tabs 05/08/22 clozapine 25 mg tablet 25 mg PO DAILY 30 days #30 tabs 05/08/22 sertraline 50 mg tablet 50 mg PO DAILY 30 days #30 tabs 05/08/22 alxipzwzybydo-PU-cqtnfrpluvk 5 10 ml PO Q4H PRN cough #237 mL 06/22/22 mg-10 mg-100 mg/5 mL oral liquid (Adult Robitussin Peak Cold M-S) divalproex 500 mg tablet,extended 2,500 mg (5 x 500 mg) PO BEDTIME 02/18/23 release 24 hr 30 days #150 tabs Mental Status Exam Mental Status Exam Narrative: Appearance: wearing hospital gown, disheveled Behavior: cooperative Psychomotor: no agitation or retardation noted TP: linear TC: no delusions or paranoia expressed Mood: good Affect: normo-intense, non-labile, full range SI: none HI: none AH: improved VH: none Insight/judgment: fair x 2. Data Data Completed and Pending Completed studies during hospitalization [Text1]: 02/11/23 02/12/23 02/12/23 22:40 09:08 20:01 WBC RBC Hgb Hct MCV MCH MCHC RDW Plt Count MPV Immature Gran % (Auto) Neut % (Auto) Lymph % (Auto) [place] % (Auto) Eos % (Auto) Baso % (Auto) Lymph # (Auto) [place] # (Auto) Eos # (Auto) Baso # (Auto) Abs Immat Gran (auto) Absolute Neuts (auto) Absolute Nucleated RBC Nucleated RBC % (auto) Sodium Potassium Chloride Carbon Dioxide Anion Gap BUN Creatinine Estim Creat Clear Calc Estimated GFR POC Glucose 165 H 119 H 149 H Random Glucose Calcium Valproic Acid 02/13/23 02/13/23 02/13/23 08:36 08:47 14:48 WBC 11.1 H RBC 4.80 Hgb 12.8 Hct 40.3 MCV 84.0 MCH 26.7 L MCHC 31.8 RDW 14.2 Plt Count 341 MPV 9.8 Immature Gran % (Auto) 1.5 H Neut % (Auto) 55.5 Lymph % (Auto) 34.4 [place] % (Auto) 7.1 Eos % (Auto) 1.1 Baso % (Auto) 0.4 Lymph # (Auto) 3.8 [place] # (Auto) 0.8 Eos # (Auto) 0.1 Baso # (Auto) 0.0 Abs Immat Gran (auto) 0.17 H Absolute Neuts (auto) 4.3 6.2 Absolute Nucleated RBC 0.000 Nucleated RBC % (auto) 0.0 Sodium 139 Potassium 3.8 Chloride 104 Carbon Dioxide 23 Anion Gap 16 BUN 12 Creatinine 0.72 0.75 Estim Creat Clear Calc 117.9 113.1 Estimated GFR > 60 > 60 POC Glucose 138 H Random Glucose 187 H Calcium 9.1 Valproic Acid 32.1 L 02/13/23 02/14/23 02/14/23 20:37 08:09 20:59 WBC RBC Hgb Hct MCV MCH MCHC RDW Plt Count MPV Immature Gran % (Auto) Neut % (Auto) Lymph % (Auto) [place] % (Auto) Eos % (Auto) Baso % (Auto) Lymph # (Auto) [place] # (Auto) Eos # (Auto) Baso # (Auto) Abs Immat Gran (auto) Absolute Neuts (auto) Absolute Nucleated RBC Nucleated RBC % (auto) Sodium Potassium Chloride Carbon Dioxide Anion Gap BUN Creatinine Estim Creat Clear Calc Estimated GFR POC Glucose 172 H 120 H 177 H Random Glucose Calcium Valproic Acid 02/15/23 02/15/23 02/16/23 08:23 20:18 08:00 WBC RBC Hgb Hct MCV MCH MCHC RDW Plt Count MPV Immature Gran % (Auto) Neut % (Auto) Lymph % (Auto) [place] % (Auto) Eos % (Auto) Baso % (Auto) Lymph # (Auto) [place] # (Auto) Eos # (Auto) Baso # (Auto) Abs Immat Gran (auto) Absolute Neuts (auto) Absolute Nucleated RBC Nucleated RBC % (auto) Sodium Potassium Chloride Carbon Dioxide Anion Gap BUN Creatinine Estim Creat Clear Calc Estimated GFR POC Glucose 129 H 241 H 144 H Random Glucose Calcium Valproic Acid 02/16/23 02/17/23 02/17/23 20:39 08:53 20:14 WBC RBC Hgb Hct MCV MCH MCHC RDW Plt Count MPV Immature Gran % (Auto) Neut % (Auto) Lymph % (Auto) [place] % (Auto) Eos % (Auto) Baso % (Auto) Lymph # (Auto) [place] # (Auto) Eos # (Auto) Baso # (Auto) Abs Immat Gran (auto) Absolute Neuts (auto) Absolute Nucleated RBC Nucleated RBC % (auto) Sodium Potassium Chloride Carbon Dioxide Anion Gap BUN Creatinine Estim Creat Clear Calc Estimated GFR POC Glucose 268 H 98 190 H Random Glucose Calcium Valproic Acid 02/18/23 07:56 WBC RBC Hgb Hct MCV MCH MCHC RDW Plt Count MPV Immature Gran % (Auto) Neut % (Auto) Lymph % (Auto) [place] % (Auto) Eos % (Auto) Baso % (Auto) Lymph # (Auto) [place] # (Auto) Eos # (Auto) Baso # (Auto) Abs Immat Gran (auto) Absolute Neuts (auto) Absolute Nucleated RBC Nucleated RBC % (auto) Sodium Potassium Chloride Carbon Dioxide Anion Gap BUN Creatinine Estim Creat Clear Calc Estimated GFR POC Glucose 115 Random Glucose Calcium Valproic Acid Imaging Diagnostic Imaging Impressions Chest X-Ray 02/13/23 15:18 IMPRESSION: Unremarkable examination. DS: Summary Hospital Course Hospital Course: per 01/23 admission note: per CARE team patricia pt was BIBA from alf after staff became concerned about her behavioral changes and persistent c/o CAH to self harm. she stated the increase in CAH had been going on for a week and had been interfering with her sleep. she denied SI to crisis staff and was unable to describe what the CAH were telling her to do. staff collateral indicated pt is typically bright and happy and able to engage in day programming, which has not been the case the past week. staff also reported pt has been taking her medications, which are administered by staff. on interview with on behavioral health unit, pt is found sleeping/resting in bed but is rousable. she is disheveled and somewhat physiologically aroused. she describes herself as being very tired and very struck. she appears to be somewhat in a crisis. she reports her symptoms are full-blown. it's scary! she adds she cannot tell whether or not her experiences are real. her relatively high dose of clozaril is noted as well as her very low dose of VPA, with a level of 24.3 in the ED. MD suggests as she appears to be prescribed an adequate amount of clozaril to very likely be therapeutic on that medication, but that is not the case for VPA, that the first order of business should be to get her to a therapeutic level of VPA. suggests doubling VPA dosing as of fallon, pt agrees. despite her diagnosis of schizophrenia rather than bipolar disorder or schizoaffective disorder, her outpatient prescriber is maintaining her on VPA, which indicates some perception of mood instability or stone in her history. Past Psychiatric History: Inpatient: last one about one year ago OP: [facility] Past trials: clozaril, perphenazine, depakote Medical Evaluation Reviewed: Yes [facility] Medical History Diabetes Gram-positive bacteremia HTN (hypertension) Social History: lives in . No children, not . Sister was guardian until 2020. raised by parents until 7 yo when parents . 1 sister. mother 2021. Substance History: utox opioids POS, but pt does not use drugs. unclear why the anomalous result. Trauma History: none Precis: 01/23: increase VPA from 1000 mg QHS to 2000 mg QHS as of tonight. otherwise continue current mgmt. 01/24: appears unchanged from yesterday. malodorous, very poor hygiene, unkempt and disheveled. continue current mgmt. plan to increase VPA to 2500 mg in a day or two, as that is more likely to be a therapeutic dose. 01/25: increase VPA to 2500 mg QHS as of tonight. check level in 5 days. observe for resolution of mood and psychotic Sx. T/C increase clozapine dosing if mood stabilizer at therapeutic serum level is not effective. 01/26/2023: No changes to current plan 01/27: no changes 01/28: continue current mgmt. seems to have improved somewhat from admission. check labs weds juan m. 01/29: stabilizing. less affectively intense or labile. continue current mgmt. labs tomorrow juan m. 01/30: full range of affect today, spending more time out of room. remains in bed much of the time, however. labs tonight. 01/31: stable improvements. VPA level 43.6, pt declines increase. AH decreasing. continue current mgmt. 02/01 continue tx. 02/02 continue tx. 02/03 continue tx. 02/04: mood improved, AH much improved. continue current mgmt for now. begin to discuss dispo. 02/05: COVID POS. continue current mgmt. in isolation. 02/06: no substantial change in status. mild URI Sx. continue current mgmt. 02/07: febrile, aches, vomiting. paxlovid started x 5 days. otherwise continue current mgmt. 02/08: febrile, symptomatic of COVID. continue paxlovid and supportive care. aware paxlovid may alter serum levels of medications and more time may be required for psych stabilization. 02/10: Continue current treatment plan. 02/11: continues feeling ill from COVID, body aches and vomiting. continue current mgmt. 02/12: continues medically ill from COVID. moderate worsening of psych Sx concurrently. continue supportive care and current medications regimen. 02/13: starting to feel better from COVID. mood and AH also improving. continue current mgmt. 02/14: COVID Sx continue. mood and AH remain improved. continue current mgmt. planning for discharge early next week, pt informed. 02/15: affect brighter today than at any time prior. getting over COVID Sx. mood/AH improving again as well. planning for saturday discharge. 02/16: continues to improve both physically and mentally. in track for saturday discharge. 02/17: no COVID Sx. mood and AH improved. saturday discharge. 02/18: stable, meds reviewed, reconciled, prescribed. discharge to alf tomorrow. 02/19: discharged as per plan. Time Spent with Patient Time attestation: Total time managing care of this patient today ____ minutes. Time spent: Greater than 30 minutes Discharge Plan Discharge Anticipated Discharge Date/Time: 02/19/23 11:30 Patient Disposition: Home, Self-Care Discharge Diagnosis: Schizophrenia Referrals: [facility] (Psychiatry) [Other] - 02/21/23 9:30 am (IN OFFICE APPOINTMENT) Jd Cordova MD [Primary Care Provider] - 1 Week (Patient informed to call office to verify follow up appointment.) Discharge Medications: New divalproex 500 mg Tablet Extended Release 24 Hr 2,500 mg PO BEDTIME 30 Days Qty: 150 0RF Continued docusate sodium [Colace] 100 mg Capsule 100 mg PO BID PRN (Reason: Constipation) clozapine 100 mg Tablet 100 mg PO DAILY 30 Days Qty: 30 0RF clozapine 25 mg Tablet 25 mg PO DAILY 30 Days Qty: 30 0RF sertraline 50 mg Tablet 50 mg PO DAILY 30 Days Qty: 30 0RF Adult Robitussin Peak Cold M-S 5-10-100 mg/5 mL liquid 10 ml PO Q4H PRN (Reason: cough) Qty: 237 0RF clozapine 100 mg tablet 3 tab PO BEDTIME ascorbic acid (vitamin C) [Vitamin C] 500 mg tablet 1 tab PO DAILY ferrous sulfate 325 mg (65 mg iron) Tablet 325 mg PO DAILY perphenazine 4 mg tablet 1 tab PO BID omeprazole 20 mg capsule,delayed release(DR/EC) 1 cap PO DAILY@0630 metformin 500 mg tablet extended release 24 hr 2 tab PO BID metoprolol tartrate 25 mg tablet 1 tab PO BID insulin glargine [Lantus Solostar U-100 Insulin] 100 unit/mL (3 mL) Insulin Pen 70 unit subcut BEDTIME Trulicity 1.5 mg/0.5 mL pen injector 0.5 ml subcut WE@0900 sennosides-docusate sodium [Senna Plus] 8.6-50 mg tablet 1 tab PO DAILY lisinopril 5 mg tablet 10 mg PO DAILY Protocol: Hold for SBP< HOLD for SBP < : 90 insulin aspart U-100 100 unit/mL (3 mL) Insulin Pen 1 sliding scale dose SUBCUT TIDAC Protocol: Insulin Correction Scale Less than or equal to 110 ---- Give (units): 0 111 to 150 Give (units): 0 151 to 200 Give (units): 2 201 to 250 Give (units): 4 251 to 300 Give (units): 6 301 to 350 Give (units): 8 Greater than 350 Give (units): 10 Call MD if Blood Glucose > : 350 Discontinued divalproex 500 mg tablet extended release 24 hr 2 tab PO BEDTIME Discharge Orders: Discharge Order (Routine); Ordered 02/19/23 Ordered By: Israel Dickerson Diet: Advance to usual diet Activity on Discharge: As tolerated Stand Alone Forms: Patient Portal Discharge page, Community Support Care Plan Goals: remain safe and stable in the outpatient treatment setting Health Concerns: none Plan of Treatment: take medications as prescribed, attend appointments as scheduled Assessment: not at imminent risk of harm to self or others Patient Instructions: Schizophrenia (ED), Hallucinations (ED) Discharge Date/Time: 02/19/23 12:14
[2023-02-18 12:55] VITALS: BP 119/77; PULSE 122
[2023-02-18] MEDS: lisinopriL 10 MG TABLET PO (12:55)
[2023-02-18] MEDS: Metoprolol Tartrate 25 MG TABLET PO ×2 (12:55→21:29)
[2023-02-18 20:05] VITALS: BP 113/56; PULSE 114; RESP 18; TEMP 36.5; O2SAT 99
[2023-02-18 21:25] VITALS: BP 113/70; PULSE 120
[2023-02-18] MEDS: Insulin Glargine,Hum.rec.anlog 100 UNIT/ML 10 ML VIAL 70 UNIT SUBCUT (21:27)
[2023-02-18] MEDS: Divalproex Sodium ER 500 MG TAB.ER.24H 2500 MG PO (21:29)
[2023-02-18] MEDS: cloZAPine 100 MG TABLET 300 MG PO (21:29)
[2023-02-18 23:39] LABS: Glucose, Whole Blood 279 mg/dL (60-115)
[2023-02-19] MEDS: Omeprazole 20 MG CAPSULE.DR PO (06:48)
[2023-02-19 08:20] LABS: Glucose, Whole Blood 131 mg/dL (60-115)
[2023-02-19 08:35] VITALS: BP 113/60; PULSE 106; RESP 18; TEMP 36.2; O2SAT 99
[2023-02-19] MEDS: Ferrous Sulfate 324 MG TABLET.DR PO (08:36)
[2023-02-19] MEDS: lisinopriL 10 MG TABLET PO (08:36)
[2023-02-19] MEDS: cloZAPine 25 MG TABLET PO (08:36)
[2023-02-19] MEDS: cloZAPine 100 MG TABLET PO (08:36)
[2023-02-19] MEDS: Sertraline HCL 50 MG TABLET PO (08:36)
[2023-02-19] MEDS: metFORMIN HCl ER 500 MG TAB.ER.24H 1000 MG PO (08:36)
[2023-02-19] MEDS: Ascorbic Acid 500 MG TABLET PO (08:36)
[2023-02-19] MEDS: Perphenazine 4 MG TABLET PO (08:37)
[2023-02-19] MEDS: Metoprolol Tartrate 25 MG TABLET PO (10:37)
--- NOTE | 2023-02-19 12:28 | PC.NURSE ---
Patient easily engaged. Affect blunted, good eye contact. Reports feeling ready for discharge. States voices are less, do not give command, or tell her not to take medications. Observed to talk to self or respond to internal stimuli. Denies feeling depressed, continues to c/o poor energy. Denies SI/HI plan or intent at this time. Discharge paperwork reviewed with patient, reports understanding. Medications reviewed with patient, reports understanding. Appointments reviewed with patient reports understanding. All belongings taken with patient, medication returned and taken with patient.
== END 2023-02-19 12:14 | disposition home or self-care (01) | DRG 750 ==
LOC: HO.ED 12:53 → HO.PADLT16 23:25
PROVIDERS: Physician Assistant; Psychiatry & Neurology Psychiatry; Admitting Provider Psychiatry & Neurology Psychiatry; Emergency Provider Emergency Medicine; PCP Internal Medicine; Visit Provider Psychiatry & Neurology Psychiatry
DX: F20.0 Paranoid schizophrenia (principal); U07.1 COVID-19; F17.210 Nicotine dependence, cigarettes, uncomplicated; Z71.6 Tobacco abuse counseling; Z79.4 Long term (current) use of insulin; Z79.84 Long term (current) use of oral hypoglycemic drugs; Z79.899 Other long term (current) drug therapy
CPT/HCPCS: 36415; 71045; 80048; 80053; 80061; 80076; 80164; 80307; 81003; 82140; 82565; 82607; 82746; 82947; 83036; 83735; 84439; 84443; 85025; 85048; 87502; 87635; 93005; 99285; S9485

== ENCOUNTER → 2023-01-22 23:17 | Outpatient (BNV) | payer OTHER, SELFPAY | PROVIDERS: Admitting Provider Psychiatry & Neurology Psychiatry; Emergency Provider Emergency Medicine; PCP Internal Medicine; Visit Provider Psychiatry & Neurology Psychiatry | DX: F20.0 Paranoid schizophrenia (principal) | CPT/HCPCS: 99231; 99232 ==

== ENCOUNTER 2023-04-05 15:34 | Outpatient (REF) | payer MEDICAID, SELFPAY ==
[2023-04-05 15:45] LABS: MANUAL DIFF FLAG NO
[2023-04-05 16:02] LABS: Basophils Percent Auto 0.3 % (0-2); Eosinophils Absolute Auto 0.1 X10*3/uL (0.0-0.4); Eosinophils Percent Auto 1.1 % (0-4); Hematocrit 39.6 % (37.0-47.0); Hemoglobin 12.4 g/dl (12.0-16.0); Imm Gran Abs Auto 0.07 X10*3/uL (0.00-0.03); Imm Gran Pct Auto 0.5 % (0.0-0.4); Lymphocytes Absolute Auto 3.6 X10*3/uL (1.2-4.9); Lymphocytes Percent Auto 27.6 % (20-40); Mean Corpuscular HGB Conc 31.3 g/dl (31.0-35.0); Mean Corpuscular Hemoglobin 27.3 pg (27.0-33.0); Mean Platelet Volume 9.4 fL (9.4-12.3); Monocytes Absolute Auto 0.7 X10*3/uL (0.1-1.2); Monocytes Percent Auto 5.5 % (2-11); Neutrophils Absolute Auto 8.4 x10*3/uL (2.0-8.3); Platelet Count 343 X10*3/uL (160-400); Red Blood Count 4.55 X10*6/uL (4.20-5.50); Red Cell Distribution Width 15.7 % (11.0-16.0)
[2023-04-05 16:45] LABS: Valproate 72.2 mcg/mL (50.0-100.0)
[2023-04-05 16:46] LABS: Alanine Aminotransferase 17 U/L (0-31); Alkaline Phosphatase 61 U/L (39-117); Anion Gap 14 (12-20); Aspartate Amino Transferase 13 U/L (5-31); Bilirubin Total 0.1 mg/dL (0.0-1.0); Blood Urea Nitrogen 10 mg/dL (9-16); Calcium 9.5 mg/dL (8.4-10.2); Carbon Dioxide 25 mmol/L (22-29); Chloride 105 mmol/L (96-108); Estimated Glomerular Filt Rate > 60; Glucose Random 209 mg/dL (60-115); Potassium 4.3 mmol/L (3.3-5.1); Sodium 140 mmol/L (135-145); Total Protein 6.9 g/dL (6.5-8.0)
== END 2023-04-05 15:35 | disposition home or self-care (01) ==
LOC: HO.LABR 15:34
PROVIDERS: Visit Provider Clinical Nurse Specialist Psychiatric/Mental Health, Adult
DX: Z79.899 Other long term (current) drug therapy (principal)
CPT/HCPCS: 36415; 80053; 80164; 85025

== ENCOUNTER 2023-06-05 16:43 | Outpatient (REF) | payer MEDICAID, SELFPAY ==
[2023-06-05 16:54] LABS: MANUAL DIFF FLAG NO
[2023-06-05 18:04] LABS: Basophils Percent Auto 0.3 % (0-2); Eosinophils Absolute Auto 0.1 X10*3/uL (0.0-0.4); Eosinophils Percent Auto 0.7 % (0-4); Hematocrit 42.5 % (37.0-47.0); Hemoglobin 13.5 g/dl (12.0-16.0); Imm Gran Abs Auto 0.06 X10*3/uL (0.00-0.03); Imm Gran Pct Auto 0.4 % (0.0-0.4); Lymphocytes Absolute Auto 4.2 X10*3/uL (1.2-4.9); Lymphocytes Percent Auto 28.2 % (20-40); Mean Corpuscular HGB Conc 31.8 g/dl (31.0-35.0); Mean Corpuscular Hemoglobin 27.7 pg (27.0-33.0); Mean Corpuscular Volume 87.1 fL (80.0-98.0); Monocytes Absolute Auto 0.8 X10*3/uL (0.1-1.2); Monocytes Percent Auto 5.6 % (2-11); Neut%MD 64.8 %; Neutrophils Absolute Auto 9.6 x10*3/uL (2.0-8.3); Neutrophils Percent Auto 64.8 % (45-73); Platelet Count 354 X10*3/uL (160-400); Red Blood Count 4.88 X10*6/uL (4.20-5.50); Red Cell Distribution Width 13.8 % (11.0-16.0); WBCANC 14.8 X10*3/uL; White Blood Count 14.8 X10*3/uL (4.8-10.8)
== END 2023-06-05 16:44 | disposition home or self-care (01) ==
LOC: HO.LAB 16:43
PROVIDERS: PCP Internal Medicine; Visit Provider Clinical Nurse Specialist Psychiatric/Mental Health, Adult
DX: Z79.899 Other long term (current) drug therapy (principal)
CPT/HCPCS: 36415; 85025

== ENCOUNTER 2023-12-01 16:38 | Inpatient (IN) | payer MEDICAID, OTHER, SELFPAY ==
--- NOTE | ~2023-12-01 | XR_ITS ---
EXAMINATION: XR CHEST CLINICAL INFORMATION: Cough. COMPARISON: None available. TECHNIQUE: Frontal view of the chest was obtained. FINDINGS: The heart is normal in size. Both lungs are clear. No pleural effusion. No pneumothorax. No acute osseous abnormality. XR/XR chest 1V IMPRESSION: No acute cardiopulmonary disease.
[2023-12-01 16:50] VITALS: BP 150/57; BP 152/90; PULSE 114; PULSE 125; RESP 18; TEMP 36.5; O2SAT 97; O2SAT 98; BMI 44.5
--- NOTE | 2023-12-01 17:04 | PC.NURSE ---
[facility] [address]
[2023-12-01 18:01] LABS: MANUAL DIFF FLAG NO
[2023-12-01 18:05] LABS: Basophils Percent Auto 0.1 % (0-2); Eosinophils Absolute Auto 0.1 X10*3/uL (0.0-0.4); Hemoglobin 11.5 g/dl (12.0-16.0); Imm Gran Abs Auto 0.04 X10*3/uL (0.00-0.03); Imm Gran Pct Auto 0.3 % (0.0-0.4); Lymphocytes Absolute Auto 3.4 X10*3/uL (1.2-4.9); Lymphocytes Percent Auto 24.5 % (20-40); Mean Corpuscular HGB Conc 32.9 g/dl (31.0-35.0); Mean Corpuscular Volume 85.4 fL (80.0-98.0); Mean Platelet Volume 9.4 fL (9.4-12.3); Monocytes Absolute Auto 0.8 X10*3/uL (0.1-1.2); Monocytes Percent Auto 5.8 % (2-11); Neutrophils Absolute Auto 9.3 x10*3/uL (2.0-8.3); Neutrophils Percent Auto 68.3 % (45-73); Platelet Count 277 X10*3/uL (160-400); Red Cell Distribution Width 14.7 % (11.0-16.0); White Blood Count 13.7 X10*3/uL (4.8-10.8)
--- NOTE | 2023-12-01 18:24 | ED_ITS ---
HPI - General Adult General Chief complaint: Psychiatric Symptoms Stated complaint: Thoughts of SI/self harm, hx depression, from Time Seen by Provider: 12/01/23 17:18 Source: patient, RN notes reviewed and old records reviewed Mode of arrival: EMS Limitations: no limitations History of Present Illness ED Provider: Lara HPI narrative: 47-year-old female with past medical history significant for schizophrenia, diabetes, hypertension presents for evaluation of ?schizophrenia. ? Patient states that she is hearing voices that are ?scary and saying bad things. ? She reports increasing depression with suicidal thoughts. She reported to the triage nurse that she planned on cutting her wrists. To me she states that she plans on ?taking all of my sleeping pills. ? She reports that she is prescribed Seroquel, Clozaril Patient denies any somatic complaints. She states ?I do not want to go back home. Can I please go inpatient? Related Data Home Medications ?Medication ?Instructions ?Recorded ?Confirmed dulaglutide 1.5 mg/0.5 mL 0.5 ml subcut WE@0900 03/07/22 12/01/23 subcutaneous pen injector (Trulicity) ferrous sulfate 325 mg (65 mg 325 mg PO DAILY 03/07/22 12/01/23 iron) tablet metoprolol tartrate 25 mg tablet 1 tab PO BID 03/07/22 12/01/23 omeprazole 20 mg capsule,delayed 1 cap PO DAILY@0630 03/07/22 12/01/23 release docusate sodium 100 mg capsule 100 mg PO BID PRN Constipation 04/21/22 12/01/23 (Colace) sennosides 8.6 mg-docusate sodium 1 tab PO DAILY 01/22/23 12/01/23 50 mg tablet (Senna Plus) clozapine 100 mg tablet 100 mg PO QAM 12/01/23 12/01/23 clozapine 100 mg tablet 300 mg PO BEDTIME 12/01/23 12/01/23 clozapine 25 mg tablet 25 mg PO QAM 12/01/23 12/01/23 divalproex 500 mg tablet,extended 2,500 mg PO BEDTIME 12/01/23 12/01/23 release 24 hr lisinopril 10 mg tablet 10 mg PO DAILY 12/01/23 12/01/23 metformin 500 mg tablet,extended 1,000 mg PO BID 12/01/23 12/01/23 release 24 hr perphenazine 4 mg tablet 4 mg PO BID 12/01/23 12/01/23 sertraline 50 mg tablet 50 mg PO DAILY 12/01/23 12/01/23 Previous Rx's ?Medication ?Instructions ?Recorded [id number]-[id number] 5 10 ml PO Q4H PRN cough #237 mL 06/22/22 mg-10 mg-100 mg/5 mL oral liquid (Adult Robitussin Peak Cold M-S) Allergies Allergy/AdvReac Type Severity Reaction Status Date / Time Sulfa (Sulfonamide Allergy Intermediate PUFFY EYES Verified 12/01/23 16:51 Antibiotics) [SULFA (SULFONAMIDE ANTIBIOTICS)] Penicillins [PENICILLINS] Allergy Mild PT STATES Verified 12/01/23 16:51 NOTHING HAPPENS, ALLG LISTED ON TRANF SHEET Review of Systems 2 Constitutional: Constitutional: Denies body ache(s), Denies chills, Denies fever(s) and Denies headache(s) Eyes: Eyes: Denies blurry vision ENT: Denies headache(s) and Denies sore throat Cardiovascular: Cardiovascular: Denies chest pain and Denies dyspnea Respiratory: Respiratory: Denies cough and Denies dyspnea Gastrointestinal: Gastrointestinal: Denies abdominal pain, Denies nausea and Denies vomiting Musculoskeletal: Musculoskeletal: Denies back pain Neurologic: Denies headache(s) Psychiatric: Psychiatric: Reports depression, Reports auditory hallucinations and Reports suicidal ideation [facility] Past Medical History Medical History Diabetes Gram-positive bacteremia HTN (hypertension) Social History Social History Household Members: Other Household Members Other:: residential Housing: Other Housing Other:: residential Do you presently have visiting nurse or other home services: No Alcohol intake: never Patient Tobacco Use Status: Current everyday Tobacco user Tobacco use type: Cigarette Cigarette Packs Per Day: 10 Cigarettes Per Day: 10 Years Smoked: 18 Smoked in Last 30 Days: Yes e-Cigarette/Vaping Use: Never Used Second Hand Smoke Exposure: Yes Use of substances other than those prescribed or required for medical reasons: No Advance Directives: No Advance Directives Information Provided: No Do you have a plan to hurt others: No Plan Patient : No service: No Current occupational status: disabled Sexual orientation: Don't Know Physical Exam ED Vital Signs: Vital Signs - 24 hr 12/01/23 16:50 12/01/23 20:33 12/01/23 20:38 Temperature 97.7 F 98 F Pulse Rate 114 H 99 99 Respiratory Rate 18 18 Blood Pressure 150/57 H 111/67 111/67 Pulse Oximetry 97 97 Oxygen Delivery Method Room Air Room Air 12/02/23 00:49 12/02/23 06:00 12/02/23 09:30 Temperature 98.0 F Pulse Rate 92 Respiratory Rate 18 14 Blood Pressure 123/68 122/62 Pulse Oximetry 96 Oxygen Delivery Method Room Air 12/02/23 09:30 12/02/23 14:12 12/02/23 14:41 Temperature 100.3 F 99.9 F 98.0 F Pulse Rate 98 96 Respiratory Rate 18 14 14 Blood Pressure 122/62 Pulse Oximetry 99 98 Oxygen Delivery Method Room Air Room Air BMI result Body Mass Index 44.5 Const General: healthy appearing, comfortable, no acute distress, alert and awake Nutritional Appearance: well nourished Orientation/consciousness: patient oriented x3 HENMT Head: Yes normocephalic and Yes atraumatic Eyes Eyelids: Yes eyelids normal Conjunctivae: conjunctivae normal Sclerae: sclerae normal Corneas: corneas normal Pupils: Equal, round and reactive pupils present EOM: EOMs intact bilaterally Neck Neck: Yes full ROM Resp Effort & Inspection: normal respiratory effort, able to speak in complete sentences and not labored GI Inspection: No distended Palpation (GI): Soft to palpation, not firm, nontender, no guarding and not rigid Skin General skin exam: elasticity normal Neuro General: patient oriented x3 Cranial nerves: Yes Equal, round and reactive pupils present and Yes Bilaterally intact EOM present Cognition (Neuro): normal cognition Extrem Other: Moving all extremities well without any obvious deformities Medications Administered Generic Name Dose Route Start Last Admin Trade Name Freq PRN Reason Stop Dose Admin Clozapine 25 mg 12/02/23 09:00 12/02/23 09:20 Clozapine 25 Mg Tablet PO 25 mg DAILY CARLEEN Administration Clozapine 100 mg 12/02/23 09:00 12/02/23 09:20 Clozapine 100 Mg Tablet PO 100 mg DAILY CARLEEN Administration Clozapine 300 mg 12/01/23 21:00 12/01/23 20:39 Clozapine 100 Mg Tablet PO 300 mg BEDTIME CARLEEN Administration Divalproex Sodium 2,500 mg 12/01/23 21:00 12/01/23 20:38 Divalproex Sodium Er 500 Mg Tab.Er.24h PO 2,500 mg BEDTIME CARLEEN Administration Ferrous Sulfate 324 mg 12/02/23 09:00 12/02/23 09:21 Ferrous Sulfate 324 Mg Tablet. PO 324 mg DAILY CARLEEN Administration Lisinopril 10 mg 12/02/23 09:00 12/02/23 09:30 Lisinopril 10 Mg Tablet PO Not Given DAILY CARLEEN Protocol Metformin HCl 1,000 mg 12/01/23 21:00 12/02/23 09:21 Metformin Hcl Er 500 Mg Tab.Er.24h PO 1,000 mg BID CARLEEN Administration Metoprolol Tartrate 25 mg 12/01/23 21:00 12/02/23 09:20 Metoprolol Tartrate 25 Mg Tablet PO 25 mg BID CARLEEN Administration Protocol Omeprazole 20 mg 12/02/23 06:30 12/02/23 06:05 Omeprazole 20 Mg Capsule. PO 20 mg DAILY@0630 CARLEEN Administration Perphenazine 4 mg 12/01/23 21:00 12/02/23 09:21 Perphenazine 4 Mg Tablet PO 4 mg BID CARLEEN Administration Senna/Docusate Sodium 1 tab 12/02/23 09:00 12/02/23 09:20 Sennosides/Docusate Sodium Tablet PO 1 tab DAILY CARLEEN Administration Sertraline HCl 50 mg 12/02/23 09:00 12/02/23 09:20 Sertraline Hcl 50 Mg Tablet PO 50 mg DAILY CARLEEN Administration Medical Decision Making Medical Decision Making MDM Narrative: 47-year-old male with past medical history as documented above presents for evaluation of hearing voices as well as suicidal thoughts. Plan for medical clearance and likely here team evaluation. 1440 patient noted to have low-grade fever 100.3 at 09:30 repeat temperature was 98 degrees patient denied any chills has occasional cough 3 4 days mostly dry workup is negative except for slightly elevated WBC count without any significant bandemia. Chest is clear no skin rash cause of low-grade fever is likely viral will check the chest x-ray rule out any pneumonia although clinically she does not have a pneumonia Patient is medically cleared to go for psych evaluation Differential Diagnosis Differential Diagnoses: The differential diagnosis associated with the presentation includes Schizophrenia Bipolar disorder Hallucinations Substance abuse Depression Suicidal ideation Lab Data 12/01/23 17:54 12/01/23 17:54 Labs: Lab Results 12/01/23 12/01/23 12/02/23 Range/Units 17:54 19:53 00:48 WBC 13.7 H (4.8-10.8) X10*3/uL RBC 4.10 L (4.20-5.50) X10*6/uL Hgb 11.5 L (12.0-16.0) g/dl Hct 35.0 L (37.0-47.0) % MCV 85.4 (80.0-98.0) fL MCH 28.0 (27.0-33.0) pg MCHC 32.9 (31.0-35.0) g/dl RDW 14.7 (11.0-16.0) % Plt Count 277 (160-400) X10*3/uL MPV 9.4 (9.4-12.3) fL Immature Gran % (Auto) 0.3 (0.0-0.4) % Neut % (Auto) 68.3 (45-73) % Lymph % (Auto) 24.5 (20-40) % [place] % (Auto) 5.8 (2-11) % Eos % (Auto) 1.0 (0-4) % Baso % (Auto) 0.1 (0-2) % Lymph # (Auto) 3.4 (1.2-4.9) X10*3/uL [place] # (Auto) 0.8 (0.1-1.2) X10*3/uL Eos # (Auto) 0.1 (0.0-0.4) X10*3/uL Baso # (Auto) 0.0 (0.0-0.2) X10*3/uL Abs Immat Gran (auto) 0.04 H (0.00-0.03) X10*3/uL Absolute Neuts (auto) 9.3 H (2.0-8.3) x10*3/uL Absolute Nucleated RBC 0.000 (0.0-0.012) X10*3/uL Nucleated RBC % (auto) 0.0 (0.0-0.2) /100WBC Sodium 139 (135-145) mmol/L Potassium 4.3 (3.3-5.1) mmol/L Chloride 106 (96-108) mmol/L Carbon Dioxide 22 (22-29) mmol/L Anion Gap 15 (12-20) BUN 12 (9-16) mg/dL Creatinine 0.70 (0.5-1.4) mg/dL Estim Creat Clear Calc 123.8 Estimated GFR > 60 POC Glucose (60-115) mg/dL Random Glucose 156 H (60-115) mg/dL Calcium 9.1 (8.4-10.2) mg/dL Total Bilirubin 0.1 (0.0-1.0) mg/dL AST 21 (5-31) U/L ALT 20 (0-31) U/L Alkaline Phosphatase 49 (39-117) U/L Total Protein 5.9 L (6.5-8.0) g/dL Albumin 3.5 (3.5-5.0) g/dL Urine Color Yellow Urine Appearance Clear Urine pH 6.0 (5.0-9.0) Ur Specific [place] <= 1.005 (1.005-1.025) Urine Protein Negative (Neg-Trace) mg/dL Urine Glucose (UA) Negative (Negative) mg/dL Urine Ketones Negative (Negative) mg/dL Urine Blood Negative (Negative) Urine Nitrite Negative (Negative) Ur Leukocyte Esterase Negative (Negative) Urine Test NEGATIVE (NEGATIVE) Salicylates < 5.0 L (15-30) mg/dL Urine Opiates Screen Not Detected (Not Detect) Ur Buprenorphine Scrn Not Detected (Not Detect) ng/mL Ur Oxycodone Screen Not Detected (Not Detect) ng/mL Urine Methadone Screen Not Detected (Not Detect) ng/mL Urine Fentanyl Screen Not Detected (Not Detect) Ur Barbiturates Screen Not Detected (Not Detect) Valproic Acid 36.2 L (50.0-100.0) mcg/mL Ur Phencyclidine Scrn Not Detected (Not Detect) Ur Amphetamines Screen Not Detected (Not Detect) U Benzodiazepines Scrn Not Detected (Not Detect) Urine Cocaine Screen Not Detected (Not Detect) U Marijuana (THC) Screen Not Detected (Not Detect) Ethyl Alcohol < 10 mg/dL COVID-19 (ALYSSA) (Negative) COVID-19 Clin Com 12/02/23 12/02/23 Range/Units 06:32 11:19 WBC (4.8-10.8) X10*3/uL RBC (4.20-5.50) X10*6/uL Hgb (12.0-16.0) g/dl Hct (37.0-47.0) % MCV (80.0-98.0) fL MCH (27.0-33.0) pg MCHC (31.0-35.0) g/dl RDW (11.0-16.0) % Plt Count (160-400) X10*3/uL MPV (9.4-12.3) fL Immature Gran % (Auto) (0.0-0.4) % Neut % (Auto) (45-73) % Lymph % (Auto) (20-40) % [place] % (Auto) (2-11) % Eos % (Auto) (0-4) % Baso % (Auto) (0-2) % Lymph # (Auto) (1.2-4.9) X10*3/uL [place] # (Auto) (0.1-1.2) X10*3/uL Eos # (Auto) (0.0-0.4) X10*3/uL Baso # (Auto) (0.0-0.2) X10*3/uL Abs Immat Gran (auto) (0.00-0.03) X10*3/uL Absolute Neuts (auto) (2.0-8.3) x10*3/uL Absolute Nucleated RBC (0.0-0.012) X10*3/uL Nucleated RBC % (auto) (0.0-0.2) /100WBC Sodium (135-145) mmol/L Potassium (3.3-5.1) mmol/L Chloride (96-108) mmol/L Carbon Dioxide (22-29) mmol/L Anion Gap (12-20) BUN (9-16) mg/dL Creatinine (0.5-1.4) mg/dL Estim Creat Clear Calc Estimated GFR POC Glucose 135 H (60-115) mg/dL Random Glucose (60-115) mg/dL Calcium (8.4-10.2) mg/dL Total Bilirubin (0.0-1.0) mg/dL AST (5-31) U/L ALT (0-31) U/L Alkaline Phosphatase (39-117) U/L Total Protein (6.5-8.0) g/dL Albumin (3.5-5.0) g/dL Urine Color Urine Appearance Urine pH (5.0-9.0) Ur Specific [place] (1.005-1.025) Urine Protein (Neg-Trace) mg/dL Urine Glucose (UA) (Negative) mg/dL Urine Ketones (Negative) mg/dL Urine Blood (Negative) Urine Nitrite (Negative) Ur Leukocyte Esterase (Negative) Urine Test (NEGATIVE) Salicylates (15-30) mg/dL Urine Opiates Screen (Not Detect) Ur Buprenorphine Scrn (Not Detect) ng/mL Ur Oxycodone Screen (Not Detect) ng/mL Urine Methadone Screen (Not Detect) ng/mL Urine Fentanyl Screen (Not Detect) Ur Barbiturates Screen (Not Detect) Valproic Acid (50.0-100.0) mcg/mL Ur Phencyclidine Scrn (Not Detect) Ur Amphetamines Screen (Not Detect) U Benzodiazepines Scrn (Not Detect) Urine Cocaine Screen (Not Detect) U Marijuana (THC) Screen (Not Detect) Ethyl Alcohol mg/dL COVID-19 (ALYSSA) Negative (Negative) COVID-19 Clin Com See Note Discharge Plan Discharge Clinical Impression: Suicidal ideation Patient Disposition: Still a Patient Prescriptions: No Action docusate sodium [Colace] 100 mg Capsule 100 mg PO BID PRN (Reason: Constipation) Adult Robitussin Peak Cold M-S 5-10-100 mg/5 mL liquid 10 ml PO Q4H PRN (Reason: cough) Qty: 237 0RF ferrous sulfate 325 mg (65 mg iron) Tablet 325 mg PO DAILY omeprazole 20 mg capsule,delayed release(DR/EC) 1 cap PO DAILY@0630 metoprolol tartrate 25 mg tablet 1 tab PO BID Trulicity 1.5 mg/0.5 mL pen injector 0.5 ml subcut WE@0900 lisinopril 10 mg tablet 10 mg PO DAILY divalproex 500 mg tablet extended release 24 hr 2,500 mg PO BEDTIME perphenazine 4 mg tablet 4 mg PO BID metformin 500 mg tablet extended release 24 hr 1,000 mg PO BID sertraline 50 mg tablet 50 mg PO DAILY clozapine 100 mg tablet 100 mg PO QAM Patient Comments: Confirmed by Luisito med linux un[employer] administrator [facility] [phone] clozapine 100 mg tablet 300 mg PO BEDTIME Patient Comments: Confirmed by Luisito med linux un[employer] administrator [facility] [phone] clozapine 25 mg tablet 25 mg PO QAM Rx Instructions: Confirmed by dulce Jorge linux un[employer] administrator [facility] [phone] sennosides-docusate sodium [Senna Plus] 8.6-50 mg tablet 1 tab PO DAILY Interventions: Coal-Suicide Risk Severity Scale Last Done: 12/01/23 16:53 Print Language: Hebrew
[2023-12-01 18:25] LABS: Alanine Aminotransferase 20 U/L (0-31); Albumin Level 3.5 g/dL (3.5-5.0); Alkaline Phosphatase 49 U/L (39-117); Anion Gap 15 (12-20); Aspartate Amino Transferase 21 U/L (5-31); Bilirubin Total 0.1 mg/dL (0.0-1.0); Blood Urea Nitrogen 12 mg/dL (9-16); Calcium 9.1 mg/dL (8.4-10.2); Carbon Dioxide 22 mmol/L (22-29); Chloride 106 mmol/L (96-108); Creatinine Clr Calc Pharmacy 123.8; Estimated Glomerular Filt Rate > 60; Glucose Random 156 mg/dL (60-115); Potassium 4.3 mmol/L (3.3-5.1); Sodium 139 mmol/L (135-145); Total Protein 5.9 g/dL (6.5-8.0)
--- NOTE | 2023-12-01 18:25 | PC.NURSE ---
labs drawn per orders
--- NOTE | 2023-12-01 18:27 | PC.NURSE ---
patient a&o, endorses SI- pt states she wants to cut her wrists, 1:1 sitter at bedside, pt aware we need urine, will continue to monitor
[2023-12-01 18:28] LABS: Ethanol < 10 mg/dL; Salicylate < 5.0 mg/dL (15-30)
[2023-12-01 20:00] LABS: Appearance Urine Clear; Color Urine Yellow; Glucose Urine UA Negative (Negative); Leukocyte Esterase Urine Negative (Negative); Nitrite Urine Negative (Negative); Specific Gravity - Urine <= 1.005 (1.005-1.025); Urine Blood Negative (Negative); Urine Ketones Negative (Negative); Urine Protein Negative (Neg-Trace)
[2023-12-01 20:09] LABS: Amphetamine Screen Urine Not Detected (Not Detect); Barbiturates, Urine Not Detected (Not Detect); Benzodiazepines Screen Urine Not Detected (Not Detect); Buprenorphine Scr Not Detected (Not Detect); Cannabinoid Screen Urine Not Detected (Not Detect); Cocaine Screen Urine Not Detected (Not Detect); Fentanyl, urine Not Detected (Not Detect); Methadone Screen, Urine Not Detected (Not Detect); Opiate Screen Urine Not Detected (Not Detect); Oxycodone Screen Urine Not Detected (Not Detect); Phencyclidine Screen Urine Not Detected (Not Detect)
[2023-12-01 20:33] VITALS: BP 111/67; PULSE 99; RESP 18; TEMP 36.6; O2SAT 97
[2023-12-01 20:38] VITALS: BP 111/67; PULSE 99
[2023-12-01] MEDS: Metoprolol Tartrate 25 MG TABLET PO (20:38)
[2023-12-01] MEDS: Divalproex Sodium ER 500 MG TAB.ER.24H 2500 MG PO (20:38)
[2023-12-01] MEDS: Perphenazine 4 MG TABLET PO (20:38)
[2023-12-01] MEDS: metFORMIN HCl ER 500 MG TAB.ER.24H 1000 MG PO (20:38)
[2023-12-01] MEDS: cloZAPine 100 MG TABLET 300 MG PO (20:39)
[2023-12-02] VITALS (7 sets, daily range): BP systolic 122–151; BP diastolic 62–71; PULSE 92–107; RESP 14–20; TEMP 36.5–37.9; O2SAT 96–99; BMI 99.0
--- NOTE | 2023-12-02 | ECG_ITS ---
Test Reason : qtc prolongation Blood Pressure : / mmHG Vent. Rate : 093 BPM Atrial Rate : 093 BPM P-R Int : 126 ms QRS Dur : 086 ms QT Int : 374 ms P-R-T Axes : 048 065 043 degrees QTc Int : 465 ms Normal sinus rhythm Low voltage QRS Borderline ECG When compared with ECG of 22-JAN-2023 19:31, Premature supraventricular complexes are no longer Present Referred By: Carlos Alberto Bermudez Electronically Signed By:PAULO CARDENAS MD
[2023-12-02 01:17] LABS: Valproate 36.2 mcg/mL (50.0-100.0)
[2023-12-02] MEDS: Omeprazole 20 MG CAPSULE.DR PO (06:05)
--- NOTE | 2023-12-02 06:16 | PC.NURSE ---
Patient slept through the night, no distress observed/reported, meds and meals compliant, medication rec verified and completed by calling correction including Clozaril last dose, care consult ordered SI, pending evaluation, VSS, no behavior and safety concerns at this time, will continue to monitor
[2023-12-02 06:36] LABS: Glucose, Whole Blood 135 mg/dL (60-115)
--- NOTE | 2023-12-02 08:43 | PC.NURSE ---
Assumed care of patient at 0645, patient appears to be in no apparent distress this, resting on bed in BH 6, respirations even and unlabored. Continue plan of care for inpatient bedsearch
[2023-12-02] MEDS: cloZAPine 100 MG TABLET PO (09:20)
[2023-12-02] MEDS: Sertraline HCL 50 MG TABLET PO (09:20)
[2023-12-02] MEDS: Metoprolol Tartrate 25 MG TABLET PO ×2 (09:20→20:55)
[2023-12-02] MEDS: Sennosides/Docusate Sodium TABLET 1 TAB PO (09:20)
[2023-12-02] MEDS: cloZAPine 25 MG TABLET PO (09:20)
[2023-12-02 09:21] LABS: UPreg QC Valid YES; Urine Pregnancy NEGATIVE (NEGATIVE)
[2023-12-02] MEDS: Ferrous Sulfate 324 MG TABLET.DR PO (09:21)
[2023-12-02] MEDS: Perphenazine 4 MG TABLET PO ×2 (09:21→20:58)
[2023-12-02] MEDS: metFORMIN HCl ER 500 MG TAB.ER.24H 1000 MG PO ×2 (09:21→20:55)
--- NOTE | 2023-12-02 09:54 | PC.NURSE ---
PCT alerted this RN to elevated temperature, patient states she is feeling well overall, not feeling any fevers or chills, no respiratory symptoms present. Plan to re-check temp after PO fluids
--- NOTE | 2023-12-02 11:16 | PC.NURSE ---
DO aware of elevated temperature and white count
[2023-12-02 11:37] LABS: COVID-19 Test Negative (Negative); IDNOW Serial# 152EDE1D
[2023-12-02 20:09] LABS: Ammonia 30 umol/L (13-55)
[2023-12-02 20:14] LABS: Valproate 33.8 mcg/mL (50.0-100.0)
[2023-12-02 20:44] LABS: Glucose, Whole Blood 314 mg/dL (60-115)
[2023-12-02] MEDS: Divalproex Sodium ER 500 MG TAB.ER.24H 2500 MG PO (20:54)
[2023-12-02] MEDS: cloZAPine 100 MG TABLET 300 MG PO (20:55)
[2023-12-02] MEDS: Insulin Lispro 100 UNIT/ML 3 ML VIAL SUBCUT (21:45)
--- NOTE | 2023-12-02 23:53 | PC.ADMIT ---
Yuni was admitted to [facility] on a CV from [facility] due to command AH telling her to cut her wrists. She is alert and oriented x3. She is guarded, isolating in her room. She is pleasant and cooperative. No behavioral concerns. She is diagnosed with diabetes, schizophrenia, and hypertension. She is prescribed Clozaril. She reported having difficulty with a new peer at her retirement and indicated that this caused an increase in her AH. Her hs blood glucose was 314 and sliding scale insulin was initiated. She received 8 units of insulin.
[2023-12-03 07:30] VITALS: BP 134/70; PULSE 99; RESP 16; TEMP 36.4; O2SAT 98
[2023-12-03 08:53] LABS: Glucose, Whole Blood 188 mg/dL (60-115)
[2023-12-03 09:15] LABS: Alanine Aminotransferase 22 U/L (0-31); Albumin Level 3.7 g/dL (3.5-5.0); Alkaline Phosphatase 54 U/L (39-117); Anion Gap 16 (12-20); Aspartate Amino Transferase 20 U/L (5-31); Bilirubin Direct < 0.2 mg/dL (0.0-0.5); Bilirubin Total 0.2 mg/dL (0.0-1.0); Blood Urea Nitrogen 16 mg/dL (9-16); Calcium 9.6 mg/dL (8.4-10.2); Carbon Dioxide 26 mmol/L (22-29); Chloride 101 mmol/L (96-108); Cholesterol 172 mg/dL (<200); Creatinine Clr Calc Pharmacy 201.7; Estimated Glomerular Filt Rate > 60; Glucose Fasting 194 mg/dL (60-99); HDL Cholesterol 32 mg/dL (>40); LDL Cholesterol Calculated 101 mg/dL (<100); Potassium 4.7 mmol/L (3.3-5.1); Sodium 138 mmol/L (135-145); Total Protein 6.2 g/dL (6.5-8.0); Triglycerides 195 mg/dL (<150)
[2023-12-03] MEDS: Omeprazole 20 MG CAPSULE.DR PO (09:19)
[2023-12-03 09:20] VITALS: BP 134/70
[2023-12-03] MEDS: Perphenazine 4 MG TABLET PO ×2 (09:20→20:33)
[2023-12-03] MEDS: cloZAPine 25 MG TABLET PO (09:20)
[2023-12-03] MEDS: metFORMIN HCl ER 500 MG TAB.ER.24H 1000 MG PO ×2 (09:20→20:32)
[2023-12-03] MEDS: Sennosides/Docusate Sodium TABLET 1 TAB PO (09:20)
[2023-12-03] MEDS: lisinopriL 10 MG TABLET PO (09:20)
[2023-12-03] MEDS: Ferrous Sulfate 324 MG TABLET.DR PO (09:20)
[2023-12-03 09:21] VITALS: BP 134/70; PULSE 99
[2023-12-03] MEDS: Metoprolol Tartrate 25 MG TABLET PO ×2 (09:21→20:33)
[2023-12-03] MEDS: Insulin Lispro 100 UNIT/ML 3 ML VIAL SUBCUT ×4 (09:21→20:34)
[2023-12-03] MEDS: Sertraline HCL 50 MG TABLET PO (09:21)
[2023-12-03] MEDS: cloZAPine 100 MG TABLET PO (09:21)
[2023-12-03 12:51] LABS: Glucose, Whole Blood 226 mg/dL (60-115)
--- NOTE | 2023-12-03 13:40 | P.HPPS_ITS ---
HPI Date of Service: 12/03/23 Chief Complaint: crisis Sources of Information: patient interviewed, chart reviewed and crisis/core team assessment reviewed HPI Subjective Notes: Shah Warning and Conditional Voluntary Narrative: Patient is a 47 year old female with hx of Schizophrenia who presented to [facility] via ambulance from groups home d/t command auditory hallucinations telling her to cut her wrists. Per crisis report, pt has been experiencing command AH for the past month to harm herself but was trying to manage in the detention. Pt reports AH at baseline, however occasionally they become more distressing and tell her to harm herself. Pt does not have a hx of SA/SIB. During admission assessment, pt presents alert, oriented, calm, cooperative. Pt stated she didn't want to talk long because I'm tired . Pt reports feeling depressed and suicidal ; pt stated, I've been feeling this way because the people at the detention are mean to me about my vibes. They say mean things so it made me depressed and suicidal . Pt reports suicidal ideation with plan to cut my wrists or take pills ; she reports auditory hallucinations that tell me to harm myself . Pt denies HI/VH. Pt reports being medication compliant. She reports sleeping well and eating well. Past Psychiatric History: Inpatient: multiple, last admission in 2022. Outpatient psychiatrist: Dr. Kitchen Pt reports she does not have a therapist. no hx of detox or PHP. Past trials: clozaril, perphenazine, depakote Medical Evaluation Reviewed: Yes [facility] Medical History Diabetes Gram-positive bacteremia HTN (hypertension) Family History: denies Social History: Lives in detention. No children, not . Sister was guardian until 2020. raised by parents until 7 yo when parents . 1 sister. Substance History: denies Trauma History: denies Diagnostics Vital Signs (24Hr): Vital Signs - 24 hr 12/02/23 14:12 12/02/23 14:41 12/02/23 19:02 Temperature 99.9 F 98.0 F 97.7 F Pulse Rate 96 107 H Respiratory Rate 14 14 20 Blood Pressure 151/71 H Pulse Oximetry 98 98 Oxygen Delivery Method Room Air Room Air 12/02/23 20:55 12/02/23 20:55 12/03/23 07:30 Temperature 98.3 F 97.6 F Pulse Rate 107 H 99 Respiratory Rate 18 16 Blood Pressure 132/63 134/70 Pulse Oximetry 97 98 Oxygen Delivery Method Room Air 12/03/23 09:20 12/03/23 09:21 Temperature Pulse Rate 99 Respiratory Rate Blood Pressure 134/70 134/70 Pulse Oximetry Oxygen Delivery Method BMI result Body Mass Index 99.0 Labs 12/01/23 17:54 12/03/23 08:25 Labs: Laboratory Results - last 48 hr 12/01/23 12/01/23 12/02/23 17:54 19:53 00:48 WBC 13.7 H RBC 4.10 L Hgb 11.5 L Hct 35.0 L MCV 85.4 MCH 28.0 MCHC 32.9 RDW 14.7 Plt Count 277 MPV 9.4 Immature Gran % (Auto) 0.3 Neut % (Auto) 68.3 Lymph % (Auto) 24.5 Borden % (Auto) 5.8 Eos % (Auto) 1.0 Baso % (Auto) 0.1 Lymph # (Auto) 3.4 Borden # (Auto) 0.8 Eos # (Auto) 0.1 Baso # (Auto) 0.0 Abs Immat Gran (auto) 0.04 H Absolute Neuts (auto) 9.3 H Absolute Nucleated RBC 0.000 Nucleated RBC % (auto) 0.0 Sodium 139 Potassium 4.3 Chloride 106 Carbon Dioxide 22 Anion Gap 15 BUN 12 Creatinine 0.70 Estim Creat Clear Calc 123.8 Estimated GFR > 60 POC Glucose Random Glucose 156 H Fasting Glucose Calcium 9.1 Total Bilirubin 0.1 Direct Bilirubin AST 21 ALT 20 Alkaline Phosphatase 49 Ammonia Total Protein 5.9 L Albumin 3.5 Triglycerides Cholesterol LDL Cholesterol, Calc HDL Cholesterol Hold Yellow Top Urine Color Yellow Urine Appearance Clear Urine pH 6.0 Ur Specific Linneus <= 1.005 Urine Protein Negative Urine Glucose (UA) Negative Urine Ketones Negative Urine Blood Negative Urine Nitrite Negative Ur Leukocyte Esterase Negative Urine Test NEGATIVE Salicylates < 5.0 L Urine Opiates Screen Not Detected Ur Buprenorphine Scrn Not Detected Ur Oxycodone Screen Not Detected Urine Methadone Screen Not Detected Urine Fentanyl Screen Not Detected Ur Barbiturates Screen Not Detected Valproic Acid 36.2 L Ur Phencyclidine Scrn Not Detected Ur Amphetamines Screen Not Detected U Benzodiazepines Scrn Not Detected Urine Cocaine Screen Not Detected U Marijuana (THC) Screen Not Detected Ethyl Alcohol < 10 COVID-19 (ALYSSA) COVID-19 Clin Com 12/02/23 12/02/23 12/02/23 06:32 11:19 19:43 WBC RBC Hgb Hct MCV MCH MCHC RDW Plt Count MPV Immature Gran % (Auto) Neut % (Auto) Lymph % (Auto) Borden % (Auto) Eos % (Auto) Baso % (Auto) Lymph # (Auto) Borden # (Auto) Eos # (Auto) Baso # (Auto) Abs Immat Gran (auto) Absolute Neuts (auto) Absolute Nucleated RBC Nucleated RBC % (auto) Sodium Potassium Chloride Carbon Dioxide Anion Gap BUN Creatinine Estim Creat Clear Calc Estimated GFR POC Glucose 135 H Random Glucose Fasting Glucose Calcium Total Bilirubin Direct Bilirubin AST ALT Alkaline Phosphatase Ammonia 30 Total Protein Albumin Triglycerides Cholesterol LDL Cholesterol, Calc HDL Cholesterol Hold Yellow Top See Note Urine Color Urine Appearance Urine pH Ur Specific Linneus Urine Protein Urine Glucose (UA) Urine Ketones Urine Blood Urine Nitrite Ur Leukocyte Esterase Urine Test Salicylates Urine Opiates Screen Ur Buprenorphine Scrn Ur Oxycodone Screen Urine Methadone Screen Urine Fentanyl Screen Ur Barbiturates Screen Valproic Acid 33.8 L Ur Phencyclidine Scrn Ur Amphetamines Screen U Benzodiazepines Scrn Urine Cocaine Screen U Marijuana (THC) Screen Ethyl Alcohol COVID-19 (ALYSSA) Negative COVID-19 Clin Com See Note 12/02/23 12/03/23 12/03/23 20:33 08:25 08:47 WBC RBC Hgb Hct MCV MCH MCHC RDW Plt Count MPV Immature Gran % (Auto) Neut % (Auto) Lymph % (Auto) Borden % (Auto) Eos % (Auto) Baso % (Auto) Lymph # (Auto) Borden # (Auto) Eos # (Auto) Baso # (Auto) Abs Immat Gran (auto) Absolute Neuts (auto) Absolute Nucleated RBC Nucleated RBC % (auto) Sodium 138 Potassium 4.7 Chloride 101 Carbon Dioxide 26 Anion Gap 16 BUN 16 Creatinine 0.74 Estim Creat Clear Calc 201.7 Estimated GFR > 60 POC Glucose 314 H 188 H Random Glucose Fasting Glucose 194 H Calcium 9.6 Total Bilirubin 0.2 Direct Bilirubin < 0.2 AST 20 ALT 22 Alkaline Phosphatase 54 Ammonia Total Protein 6.2 L Albumin 3.7 Triglycerides 195 H Cholesterol 172 LDL Cholesterol, Calc 101 H HDL Cholesterol 32 L Hold Yellow Top Urine Color Urine Appearance Urine pH Ur Specific Linneus Urine Protein Urine Glucose (UA) Urine Ketones Urine Blood Urine Nitrite Ur Leukocyte Esterase Urine Test Salicylates Urine Opiates Screen Ur Buprenorphine Scrn Ur Oxycodone Screen Urine Methadone Screen Urine Fentanyl Screen Ur Barbiturates Screen Valproic Acid Ur Phencyclidine Scrn Ur Amphetamines Screen U Benzodiazepines Scrn Urine Cocaine Screen U Marijuana (THC) Screen Ethyl Alcohol COVID-19 (ALYSSA) COVID-19 Tenebril Com 12/03/23 12:44 WBC RBC Hgb Hct MCV MCH MCHC RDW Plt Count MPV Immature Gran % (Auto) Neut % (Auto) Lymph % (Auto) Borden % (Auto) Eos % (Auto) Baso % (Auto) Lymph # (Auto) Borden # (Auto) Eos # (Auto) Baso # (Auto) Abs Immat Gran (auto) Absolute Neuts (auto) Absolute Nucleated RBC Nucleated RBC % (auto) Sodium Potassium Chloride Carbon Dioxide Anion Gap BUN Creatinine Estim Creat Clear Calc Estimated GFR POC Glucose 226 H Random Glucose Fasting Glucose Calcium Total Bilirubin Direct Bilirubin AST ALT Alkaline Phosphatase Ammonia Total Protein Albumin Triglycerides Cholesterol LDL Cholesterol, Calc HDL Cholesterol Hold Yellow Top Urine Color Urine Appearance Urine pH Ur Specific Linneus Urine Protein Urine Glucose (UA) Urine Ketones Urine Blood Urine Nitrite Ur Leukocyte Esterase Urine Test Salicylates Urine Opiates Screen Ur Buprenorphine Scrn Ur Oxycodone Screen Urine Methadone Screen Urine Fentanyl Screen Ur Barbiturates Screen Valproic Acid Ur Phencyclidine Scrn Ur Amphetamines Screen U Benzodiazepines Scrn Urine Cocaine Screen U Marijuana (THC) Screen Ethyl Alcohol COVID-19 ([facility]YSSA) COVID-19 Clin Com Imaging Radiology Impressions: ITS Impressions Chest X-Ray 12/02/23 15:23 IMPRESSION: No acute cardiopulmonary disease. Meds/Allergies Meds Home Medications ?Medication ?Instructions ?Recorded ?Confirmed ?Type dulaglutide 1.5 mg/0.5 mL 0.5 ml subcut WE@0900 03/07/22 12/01/23 History subcutaneous pen injector (Trulicity) ferrous sulfate 325 mg (65 mg 325 mg PO DAILY 03/07/22 12/01/23 History iron) tablet metoprolol tartrate 25 mg tablet 1 tab PO BID 03/07/22 12/01/23 History omeprazole 20 mg capsule,delayed 1 cap PO DAILY@0630 03/07/22 12/01/23 History release docusate sodium 100 mg capsule 100 mg PO BID PRN Constipation 04/21/22 12/01/23 History (Colace) sennosides 8.6 mg-docusate sodium 1 tab PO DAILY 01/22/23 12/01/23 History 50 mg tablet (Senna Plus) clozapine 100 mg tablet 100 mg PO QAM 12/01/23 12/01/23 History clozapine 100 mg tablet 300 mg PO BEDTIME 12/01/23 12/01/23 History clozapine 25 mg tablet 25 mg PO QAM 12/01/23 12/01/23 History divalproex 500 mg tablet,extended 2,500 mg PO BEDTIME 12/01/23 12/01/23 History release 24 hr lisinopril 10 mg tablet 10 mg PO DAILY 12/01/23 12/01/23 History metformin 500 mg tablet,extended 1,000 mg PO BID 12/01/23 12/01/23 History release 24 hr perphenazine 4 mg tablet 4 mg PO BID 12/01/23 12/01/23 History sertraline 50 mg tablet 50 mg PO DAILY 12/01/23 12/01/23 History Allergies Allergies Allergy/AdvReac Type Severity Reaction Status Date / Time Sulfa (Sulfonamide Allergy Intermediate PUFFY EYES Verified 12/01/23 16:51 Antibiotics) [SULFA (SULFONAMIDE ANTIBIOTICS)] Penicillins [PENICILLINS] Allergy Mild PT STATES Verified 12/01/23 16:51 NOTHING HAPPENS, ALLG LISTED ON TRANF SHEET Mental Status Exam Mental Status Exam Narrative: Pt is alert and oriented; behavior is cooperative and calm; dressed in hospital attire; mood is described as depressed ; eye contact appropriate; Speech is normal rate, volume and not pressured; thought process is organized; Thought content is on tx; denies HI/VH. Pt reports auditory hallucinations that tell her to harm herself. Pt reports suicidal ideation with plan to cut my wrists or take pills . Assessment & Plan Assessment & Plan (1) Schizophrenia: Status: Acute Qualifiers: Schizophrenia type: paranoid schizophrenia Qualified Code(s): F20.0 - Paranoid schizophrenia Code(s): F20.9 - Schizophrenia, unspecified Plan Patient is a 47 year old female with hx of Schizophrenia who presented to [facility] via ambulance [facility] home d/t command auditory hallucinations telling her to cut her wrists. Plan: CV 15 minute safety checks continue home mediations obtain collateral encourage groups discharge planning Patient educated on: diagnosis, medication risk/benefits and therapeutic strategies Reason for continued inpatient stay Substantial Risk for: harm to self and med/psych decompensation Statement Statement: I have reviewed the history and physical and performed a pertinent examination on my patient. No changes have occurred unless specified. If the History and Physical was not performed prior to admission, the Hospitalist's service will be consulted for completing the admission physical. Time Spent With Patient Time: Total time managing care of this patient today _60___ minutes.
[2023-12-03 18:52] LABS: Glucose, Whole Blood 154 mg/dL (60-115)
[2023-12-03 20:03] LABS: MANUAL DIFF FLAG NO
[2023-12-03 20:06] LABS: Basophils Percent Auto 0.3 % (0-2); Eosinophils Absolute Auto 0.2 X10*3/uL (0.0-0.4); Eosinophils Percent Auto 1.3 % (0-4); Hematocrit 37.9 % (37.0-47.0); Hemoglobin 12.4 g/dl (12.0-16.0); Imm Gran Abs Auto 0.05 X10*3/uL (0.00-0.03); Imm Gran Pct Auto 0.4 % (0.0-0.4); Lymphocytes Absolute Auto 3.6 X10*3/uL (1.2-4.9); Lymphocytes Percent Auto 30.6 % (20-40); Mean Corpuscular HGB Conc 32.7 g/dl (31.0-35.0); Mean Corpuscular Hemoglobin 27.8 pg (27.0-33.0); Mean Platelet Volume 9.5 fL (9.4-12.3); Monocytes Absolute Auto 0.7 X10*3/uL (0.1-1.2); Monocytes Percent Auto 5.6 % (2-11); Neut%MD 62.2 %; Neutrophils Absolute Auto 7.3 x10*3/uL (2.0-8.3); Neutrophils Absolute Auto 7.5 x10*3/uL (2.0-8.3); Neutrophils Percent Auto 61.8 % (45-73); Platelet Count 279 X10*3/uL (160-400); Red Blood Count 4.46 X10*6/uL (4.20-5.50); Red Cell Distribution Width 14.3 % (11.0-16.0); White Blood Count 11.9 X10*3/uL (4.8-10.8)
[2023-12-03 20:06] LABS: Glucose, Whole Blood 228 mg/dL (60-115)
[2023-12-03 20:15] VITALS: BP 117/60; PULSE 111; RESP 18; TEMP 36.3; O2SAT 99
[2023-12-03 20:15] LABS: Ammonia 28 umol/L (13-55)
[2023-12-03 20:20] LABS: Valproate 31.1 mcg/mL (50.0-100.0)
[2023-12-03 20:31] LABS: Alanine Aminotransferase 24 U/L (0-31); Albumin Level 3.7 g/dL (3.5-5.0); Alkaline Phosphatase 55 U/L (39-117); Anion Gap 17 (12-20); Aspartate Amino Transferase 25 U/L (5-31); Bilirubin Direct < 0.2 mg/dL (0.0-0.5); Bilirubin Total 0.2 mg/dL (0.0-1.0); Blood Urea Nitrogen 15 mg/dL (9-16); Calcium 9.2 mg/dL (8.4-10.2); Carbon Dioxide 23 mmol/L (22-29); Chloride 102 mmol/L (96-108); Creatinine Clr Calc Pharmacy 201.7; Estimated Glomerular Filt Rate > 60; Glucose Random 221 mg/dL (60-115); Potassium 4.5 mmol/L (3.3-5.1); Sodium 137 mmol/L (135-145); Total Protein 6.3 g/dL (6.5-8.0)
[2023-12-03] MEDS: cloZAPine 100 MG TABLET 300 MG PO (20:32)
[2023-12-03] MEDS: Divalproex Sodium ER 500 MG TAB.ER.24H 2500 MG PO (20:33)
[2023-12-03 20:45] LABS: TSH reflex Free T4 2.69 uIU/mL (0.32-4.0)
[2023-12-04 07:51] VITALS: BP 106/74; PULSE 102; RESP 16; TEMP 36.4; O2SAT 98
--- NOTE | 2023-12-04 08:18 | P.PNPSI_ITS ---
Subjective Subjective Date of Service: 12/04/23 Reason For Visit: crisis Subjective Notes: Conditional Voluntary Interim History: Reviewed with Dr. Ramires. Keeping to self. Laying in bed most of shift. Pt reports feeling tired from the symptoms ; pt stated, I'm okay but I'm still feeling anxious and depressed. The voices keep telling me I'm ugly. It makes me have thoughts of hurting myself . Pt denies HI/VH. Pt encouraged to attend groups. Medication Compliance: Yes Side effects from medications: No Attending Groups: No Review of Systems Constitutional: Reports as per HPI Eyes: Reports as per HPI Reports as per HPI Cardiovascular: Reports as per HPI Respiratory: Reports as per HPI Gastrointestinal: Reports as per HPI Genitourinary: Reports as per HPI Musculoskeletal: Reports as per HPI Skin/Breast: Reports as per HPI Reports as per HPI Psychiatric: Reports as per HPI Endocrine: Reports as per HPI Hematologic/Lymphatic: Reports as per HPI Allergic/Immunologic: Reports as per HPI Mental Status Exam Mental Status Exam Narrative: Pt is alert and oriented; behavior is cooperative and calm; dressed in hospital attire, malodorous; mood is described as anxious and depressed ; eye contact appropriate; Speech is normal rate, volume and not pressured; thought process is organized; Thought content is on tx; denies HI/VH. Pt reports auditory hallucinations that tell her to harm herself. Pt reports suicidal ideation. Diagnostics Vital Signs (24Hr): Vital Signs - 24 hr 12/03/23 09:20 12/03/23 09:21 12/03/23 20:15 Temperature 97.4 F Pulse Rate 99 111 H Respiratory Rate 18 Blood Pressure 134/70 134/70 117/60 Pulse Oximetry 99 Oxygen Delivery Method Room Air 12/04/23 07:51 Temperature 97.5 F Pulse Rate 102 H Respiratory Rate 16 Blood Pressure 106/74 Pulse Oximetry 98 Oxygen Delivery Method Room Air BMI result Body Mass Index 99.0 Labs 12/03/23 19:56 12/03/23 19:56 Labs: Laboratory Results - last 48 hr 12/01/23 12/02/23 12/02/23 19:53 11:19 19:43 WBC RBC Hgb Hct MCV MCH MCHC RDW Plt Count MPV Immature Gran % (Auto) Neut % (Auto) Lymph % (Auto) Riley % (Auto) Eos % (Auto) Baso % (Auto) Lymph # (Auto) Riley # (Auto) Eos # (Auto) Baso # (Auto) Abs Immat Gran (auto) Absolute Neuts (auto) Absolute Nucleated RBC Nucleated RBC % (auto) Sodium Potassium Chloride Carbon Dioxide Anion Gap BUN Creatinine Estim Creat Clear Calc Estimated GFR POC Glucose Random Glucose Fasting Glucose Calcium Total Bilirubin Direct Bilirubin AST ALT Alkaline Phosphatase Ammonia 30 Total Protein Albumin Triglycerides Cholesterol LDL Cholesterol, Calc HDL Cholesterol TSH Hold Yellow Top See Note Urine Test NEGATIVE Valproic Acid 33.8 L COVID-19 (ALYSSA) Negative COVID-19 Clin Com See Note 12/02/23 12/03/23 12/03/23 20:33 08:25 08:47 WBC RBC Hgb Hct MCV MCH MCHC RDW Plt Count MPV Immature Gran % (Auto) Neut % (Auto) Lymph % (Auto) Riley % (Auto) Eos % (Auto) Baso % (Auto) Lymph # (Auto) Riley # (Auto) Eos # (Auto) Baso # (Auto) Abs Immat Gran (auto) Absolute Neuts (auto) Absolute Nucleated RBC Nucleated RBC % (auto) Sodium 138 Potassium 4.7 Chloride 101 Carbon Dioxide 26 Anion Gap 16 BUN 16 Creatinine 0.74 Estim Creat Clear Calc 201.7 Estimated GFR > 60 POC Glucose 314 H 188 H Random Glucose Fasting Glucose 194 H Calcium 9.6 Total Bilirubin 0.2 Direct Bilirubin < 0.2 AST 20 ALT 22 Alkaline Phosphatase 54 Ammonia Total Protein 6.2 L Albumin 3.7 Triglycerides 195 H Cholesterol 172 LDL Cholesterol, Calc 101 H HDL Cholesterol 32 L TSH Hold Yellow Top Urine Test Valproic Acid COVID-19 (ALYSSA) COVID-19 [employer] Com 12/03/23 12/03/23 12/03/23 12:44 18:03 19:56 WBC 11.9 H RBC 4.46 Hgb 12.4 Hct 37.9 MCV 85.0 MCH 27.8 MCHC 32.7 RDW 14.3 Plt Count 279 MPV 9.5 Immature Gran % (Auto) 0.4 Neut % (Auto) 61.8 Lymph % (Auto) 30.6 Riley % (Auto) 5.6 Eos % (Auto) 1.3 Baso % (Auto) 0.3 Lymph # (Auto) 3.6 Riley # (Auto) 0.7 Eos # (Auto) 0.2 Baso # (Auto) 0.0 Abs Immat Gran (auto) 0.05 H Absolute Neuts (auto) 7.3 Absolute Nucleated RBC Nucleated RBC % (auto) Sodium Potassium Chloride Carbon Dioxide Anion Gap BUN Creatinine Estim Creat Clear Calc Estimated GFR POC Glucose 226 H 154 H Random Glucose Fasting Glucose Calcium Total Bilirubin Direct Bilirubin AST ALT Alkaline Phosphatase Ammonia Total Protein Albumin Triglycerides Cholesterol LDL Cholesterol, Calc HDL Cholesterol TSH Hold Yellow Top Urine Test Valproic Acid COVID-19 (ALYSSA) COVID-19 [employer] 12/03/23 12/03/23 19:56 20:01 WBC RBC Hgb Hct MCV MCH MCHC RDW Plt Count MPV Immature Gran % (Auto) Neut % (Auto) Lymph % (Auto) Riley % (Auto) Eos % (Auto) Baso % (Auto) Lymph # (Auto) Riley # (Auto) Eos # (Auto) Baso # (Auto) Abs Immat Gran (auto) Absolute Neuts (auto) 7.5 Absolute Nucleated RBC 0.000 Nucleated RBC % (auto) 0.0 Sodium 137 Potassium 4.5 Chloride 102 Carbon Dioxide 23 Anion Gap 17 BUN 15 Creatinine 0.74 Estim Creat Clear Calc 201.7 Estimated GFR > 60 POC Glucose 228 H Random Glucose 221 H Fasting Glucose Calcium 9.2 Total Bilirubin 0.2 Direct Bilirubin < 0.2 AST 25 ALT 24 Alkaline Phosphatase 55 Ammonia 28 Total Protein 6.3 L Albumin 3.7 Triglycerides Cholesterol LDL Cholesterol, Calc HDL Cholesterol TSH 2.69 Hold Yellow Top Urine Test Valproic Acid 31.1 L COVID-19 (ALYSSA) COVID-19 [employer] Imaging Radiology Impressions: ITS Impressions Chest X-Ray 12/02/23 15:23 IMPRESSION: No acute cardiopulmonary disease. Medications Medications Current Medications Acetaminophen (Acetaminophen 325 Mg Tablet) 650 mg PO Q6H PRN PRN Reason: Headache/Pain Mild Scale (1-3) Al Hydroxide/Mg Hydroxide (Magnesium Hydrox/Alum Hydrox 30 Ml Oral.Susp) 30 ml PO Q6H PRN PRN Reason: Heartburn/Nausea Clozapine (Clozapine 25 Mg Tablet) 25 mg PO DAILY CARLEEN Last Admin: 12/03/23 09:20 Dose: 25 mg Clozapine (Clozapine 100 Mg Tablet) 100 mg PO DAILY CARLEEN Last Admin: 12/03/23 09:21 Dose: 100 mg Clozapine (Clozapine 100 Mg Tablet) 300 mg PO BEDTIME CARLEEN Last Admin: 12/03/23 20:32 Dose: 300 mg Divalproex Sodium (Divalproex Sodium Er 500 Mg Tab.Er.24h) 2,500 mg PO BEDTIME [facility] Last Admin: 12/03/23 20:33 Dose: 2,500 mg Docusate Sodium (Docusate Sodium 100 Mg Capsule) 100 mg PO BID PRN PRN Reason: Constipation Ferrous Sulfate (Ferrous Sulfate 324 Mg Tablet.) 324 mg PO DAILY [facility] Last Admin: 12/03/23 09:20 Dose: 324 mg Hydroxyzine HCl (Hydroxyzine Hcl 25 Mg Tablet) 25 mg PO Q6H PRN PRN Reason: Anxiety Insulin Human Lispro (Insulin Lispro 100 Unit/Ml 3 Ml Vial) 0 unit SUBCUT QIDACHS [facility]; Protocol Last Admin: 12/03/23 20:34 Dose: 4 unit Lisinopril (Lisinopril 10 Mg Tablet) 10 mg PO DAILY [facility]; Protocol Last Admin: 12/03/23 09:20 Dose: 10 mg Magnesium Hydroxide (Milk Of Magnesia 30 Ml Oral.Susp) 30 ml PO DAILY PRN PRN Reason: Constipation Metformin HCl (Metformin Hcl Er 500 Mg Tab.Er.24h) 1,000 mg PO BID [facility] Last Admin: 12/03/23 20:32 Dose: 1,000 mg Metoprolol Tartrate (Metoprolol Tartrate 25 Mg Tablet) 25 mg PO BID [facility]; Protocol Last Admin: 12/03/23 20:33 Dose: 25 mg Nicotine (Nicotine 21 Mg Patch.Td24) 21 mg TRANSDERMA DAILY [facility] Last Admin: 12/03/23 09:27 Dose: Not Given Nicotine Polacrilex (Nicotine Polacrilex 2 Mg Gum) 4 mg BUCCAL Q2H PRN PRN Reason: Nicotine Cravings Non-Formulary Medication (Dulaglutide [Trulicity]) 0.5 ml SUBCUT WE@0900 [facility] Omeprazole (Omeprazole 20 Mg Capsule.) 20 mg PO DAILY@0630 [facility] Last Admin: 12/03/23 09:19 Dose: 20 mg Perphenazine (Perphenazine 4 Mg Tablet) 4 mg PO BID [facility] Last Admin: 12/03/23 20:33 Dose: 4 mg Senna/Docusate Sodium (Sennosides/Docusate Sodium Tablet) 1 tab PO DAILY [facility] Last Admin: 12/03/23 09:20 Dose: 1 tab Sertraline HCl (Sertraline Hcl 50 Mg Tablet) 50 mg PO DAILY [facility] Last Admin: 12/03/23 09:21 Dose: 50 mg Trazodone HCl (Trazodone Hcl 50 Mg Tablet) 50 mg PO BEDTIME MRX1 PRN PRN Reason: Insomnia Allergies Allergies Allergy/AdvReac Type Severity Reaction Status Date / Time Sulfa (Sulfonamide Allergy Intermediate PUFFY EYES Verified 12/01/23 16:51 Antibiotics) [SULFA (SULFONAMIDE ANTIBIOTICS)] Penicillins [PENICILLINS] Allergy Mild PT STATES Verified 12/01/23 16:51 NOTHING HAPPENS, ALLG LISTED ON TRANF SHEET Assessment & Plan Assessment & Plan (1) Schizophrenia: Qualifiers: Schizophrenia type: paranoid schizophrenia Qualified Code(s): F20.0 - Paranoid schizophrenia Status: Acute Code(s): F20.9 - Schizophrenia, unspecified Plan Patient is a 47 year old female with hx of Schizophrenia who presented to [facility] via ambulance from groups home d/t command auditory hallucinations telling her to cut her wrists. Plan: CV 15 minute safety checks continue home mediations obtain collateral encourage groups discharge planning 12/03: Keeping to self. Laying in bed most of shift. Pt reports feeling tired from the symptoms ; pt stated, I'm okay but I'm still feeling anxious and depressed. The voices keep telling me I'm ugly. It makes me have thoughts of hurting myself . Pt denies HI/VH. Pt encouraged to attend groups. Continue current tx plan. Patient educated on: diagnosis, medication risk/benefits and therapeutic strategies Reason for continued inpatient stay Substantial Risk for: harm to self and med/psych decompensation Time Spent With Patient Time: Total time managing care of this patient today _20___ minutes.
[2023-12-04 09:07] VITALS: BP 104/74; PULSE 72
[2023-12-04] MEDS: Perphenazine 4 MG TABLET PO ×2 (09:07→21:14)
[2023-12-04] MEDS: Sertraline HCL 50 MG TABLET PO (09:07)
[2023-12-04] MEDS: Metoprolol Tartrate 25 MG TABLET PO ×2 (09:07→21:13)
[2023-12-04] MEDS: lisinopriL 10 MG TABLET PO (09:07)
[2023-12-04] MEDS: Ferrous Sulfate 324 MG TABLET.DR PO (09:08)
[2023-12-04] MEDS: Omeprazole 20 MG CAPSULE.DR PO (09:08)
[2023-12-04] MEDS: cloZAPine 25 MG TABLET PO (09:08)
[2023-12-04] MEDS: Sennosides/Docusate Sodium TABLET 1 TAB PO (09:08)
[2023-12-04] MEDS: metFORMIN HCl ER 500 MG TAB.ER.24H 1000 MG PO ×2 (09:19→21:13)
[2023-12-04] MEDS: cloZAPine 100 MG TABLET PO (09:24)
[2023-12-04] MEDS: Insulin Lispro 100 UNIT/ML 3 ML VIAL SUBCUT ×4 (09:29→22:07)
[2023-12-04 12:34] LABS: Glucose, Whole Blood 205 mg/dL (60-115)
[2023-12-04 12:55] LABS: Glucose, Whole Blood 187 mg/dL (60-115)
[2023-12-04 17:38] LABS: Glucose, Whole Blood 185 mg/dL (60-115)
[2023-12-04 21:13] VITALS: BP 132/65; PULSE 102
[2023-12-04] MEDS: Divalproex Sodium ER 500 MG TAB.ER.24H 2500 MG PO (21:13)
[2023-12-04] MEDS: cloZAPine 100 MG TABLET 300 MG PO (21:13)
[2023-12-04 21:46] LABS: Glucose, Whole Blood 264 mg/dL (60-115)
[2023-12-04 22:40] VITALS: BP 132/65; PULSE 98; RESP 16; TEMP 36.4; O2SAT 98
[2023-12-05] MEDS: Omeprazole 20 MG CAPSULE.DR PO (06:40)
[2023-12-05 07:00] VITALS: BMI 43.8
[2023-12-05 07:41] VITALS: BP 103/54; PULSE 109; RESP 18; TEMP 36.4; O2SAT 98
[2023-12-05 08:34] LABS: Glucose, Whole Blood 233 mg/dL (60-115)
[2023-12-05] MEDS: Sertraline HCL 50 MG TABLET PO (09:05)
[2023-12-05] MEDS: cloZAPine 100 MG TABLET PO (09:05)
--- NOTE | 2023-12-05 09:05 | HO.PSYCHPN ---
Subjective Subjective Date of Service: 12/05/23 Reason For Visit: crisis Subjective Notes: Conditional Voluntary Interim History: Reviewed with Dr. Ramires. Showered. Pt reports she is starting to feel better ; pt stated, the voices are getting mild now. They quieted down . Pt denies SI/HI/VH. Keeping to self. encouraged to attend groups. Medication Compliance: Yes Side effects from medications: No Attending Groups: No Review of Systems Constitutional: Reports as per HPI Eyes: Reports as per HPI Reports as per HPI Cardiovascular: Reports as per HPI Respiratory: Reports as per HPI Gastrointestinal: Reports as per HPI Genitourinary: Reports as per HPI Musculoskeletal: Reports as per HPI Skin/Breast: Reports as per HPI Reports as per HPI Psychiatric: Reports as per HPI Endocrine: Reports as per HPI Hematologic/Lymphatic: Reports as per HPI Allergic/Immunologic: Reports as per HPI Mental Status Exam Mental Status Exam Narrative: Pt is alert and oriented; behavior is calm, guarded; dressed in hospital attire; mood is described as better ; eye contact appropriate; Speech is normal rate, volume and not pressured; thought process is organized; Thought content is on tx; denies SI/HI/VH. Pt reports auditory hallucinations. Diagnostics Vital Signs (24Hr): Vital Signs - 24 hr 12/04/23 09:07 12/04/23 09:07 12/04/23 21:13 Temperature Pulse Rate 72 102 H Respiratory Rate Blood Pressure 104/74 104/74 132/65 Pulse Oximetry Oxygen Delivery Method 12/04/23 22:40 12/05/23 07:41 Temperature 97.6 F 97.5 F Pulse Rate 98 109 H Respiratory Rate 16 18 Blood Pressure 132/65 103/54 L Pulse Oximetry 98 98 Oxygen Delivery Method Room Air Room Air BMI result Body Mass Index 99.0 Labs 12/03/23 19:56 12/03/23 19:56 Labs: Laboratory Results - last 48 hr 12/03/23 12/03/23 12/03/23 08:25 12:44 18:03 WBC RBC Hgb Hct MCV MCH MCHC RDW Plt Count MPV Immature Gran % (Auto) Neut % (Auto) Lymph % (Auto) [place] % (Auto) Eos % (Auto) Baso % (Auto) Lymph # (Auto) [place] # (Auto) Eos # (Auto) Baso # (Auto) Abs Immat Gran (auto) Absolute Neuts (auto) Absolute Nucleated RBC Nucleated RBC % (auto) Sodium 138 Potassium 4.7 Chloride 101 Carbon Dioxide 26 Anion Gap 16 BUN 16 Creatinine 0.74 Estim Creat Clear Calc 201.7 Estimated GFR > 60 POC Glucose 226 H 154 H Random Glucose Fasting Glucose 194 H Calcium 9.6 Total Bilirubin 0.2 Direct Bilirubin < 0.2 AST 20 ALT 22 Alkaline Phosphatase 54 Ammonia Total Protein 6.2 L Albumin 3.7 Triglycerides 195 H Cholesterol 172 LDL Cholesterol, Calc 101 H HDL Cholesterol 32 L TSH Valproic Acid 12/03/23 12/03/23 12/03/23 19:56 19:56 20:01 WBC 11.9 H RBC 4.46 Hgb 12.4 Hct 37.9 MCV 85.0 MCH 27.8 MCHC 32.7 RDW 14.3 Plt Count 279 MPV 9.5 Immature Gran % (Auto) 0.4 Neut % (Auto) 61.8 Lymph % (Auto) 30.6 [place] % (Auto) 5.6 Eos % (Auto) 1.3 Baso % (Auto) 0.3 Lymph # (Auto) 3.6 [place] # (Auto) 0.7 Eos # (Auto) 0.2 Baso # (Auto) 0.0 Abs Immat Gran (auto) 0.05 H Absolute Neuts (auto) 7.3 7.5 Absolute Nucleated RBC 0.000 Nucleated RBC % (auto) 0.0 Sodium 137 Potassium 4.5 Chloride 102 Carbon Dioxide 23 Anion Gap 17 BUN 15 Creatinine 0.74 Estim Creat Clear Calc 201.7 Estimated GFR > 60 POC Glucose 228 H Random Glucose 221 H Fasting Glucose Calcium 9.2 Total Bilirubin 0.2 Direct Bilirubin < 0.2 AST 25 ALT 24 Alkaline Phosphatase 55 Ammonia 28 Total Protein 6.3 L Albumin 3.7 Triglycerides Cholesterol LDL Cholesterol, Calc HDL Cholesterol TSH 2.69 Valproic Acid 31.1 L 12/04/23 12/04/23 12/04/23 08:01 12:50 17:32 WBC RBC Hgb Hct MCV MCH MCHC RDW Plt Count MPV Immature Gran % (Auto) Neut % (Auto) Lymph % (Auto) [place] % (Auto) Eos % (Auto) Baso % (Auto) Lymph # (Auto) [place] # (Auto) Eos # (Auto) Baso # (Auto) Abs Immat Gran (auto) Absolute Neuts (auto) Absolute Nucleated RBC Nucleated RBC % (auto) Sodium Potassium Chloride Carbon Dioxide Anion Gap BUN Creatinine Estim Creat Clear Calc Estimated GFR POC Glucose 205 H 187 H 185 H Random Glucose Fasting Glucose Calcium Total Bilirubin Direct Bilirubin AST ALT Alkaline Phosphatase Ammonia Total Protein Albumin Triglycerides Cholesterol LDL Cholesterol, Calc HDL Cholesterol TSH Valproic Acid 12/04/23 12/05/23 21:40 08:16 WBC RBC Hgb Hct MCV MCH MCHC RDW Plt Count MPV Immature Gran % (Auto) Neut % (Auto) Lymph % (Auto) [place] % (Auto) Eos % (Auto) Baso % (Auto) Lymph # (Auto) [place] # (Auto) Eos # (Auto) Baso # (Auto) Abs Immat Gran (auto) Absolute Neuts (auto) Absolute Nucleated RBC Nucleated RBC % (auto) Sodium Potassium Chloride Carbon Dioxide Anion Gap BUN Creatinine Estim Creat Clear Calc Estimated GFR POC Glucose 264 H 233 H Random Glucose Fasting Glucose Calcium Total Bilirubin Direct Bilirubin AST ALT Alkaline Phosphatase Ammonia Total Protein Albumin Triglycerides Cholesterol LDL Cholesterol, Calc HDL Cholesterol TSH Valproic Acid Imaging Radiology Impressions: ITS Impressions Chest X-Ray 12/02/23 15:23 IMPRESSION: No acute cardiopulmonary disease. Medications Medications Current Medications Acetaminophen (Acetaminophen 325 Mg Tablet) 650 mg PO Q6H PRN PRN Reason: Headache/Pain Mild Scale (1-3) Al Hydroxide/Mg Hydroxide (Magnesium Hydrox/Alum Hydrox 30 Ml Oral.Susp) 30 ml PO Q6H PRN PRN Reason: Heartburn/Nausea Clozapine (Clozapine 25 Mg Tablet) 25 mg PO DAILY [facility] Last Admin: 12/04/23 09:08 Dose: 25 mg Clozapine (Clozapine 100 Mg Tablet) 100 mg PO DAILY [facility] Last Admin: 12/04/23 09:24 Dose: 100 mg Clozapine (Clozapine 100 Mg Tablet) 300 mg PO BEDTIME [facility] Last Admin: 12/04/23 21:13 Dose: 300 mg Divalproex Sodium (Divalproex Sodium Er 500 Mg Tab.Er.24h) 2,500 mg PO BEDTIME [facility] Last Admin: 12/04/23 21:13 Dose: 2,500 mg Docusate Sodium (Docusate Sodium 100 Mg Capsule) 100 mg PO BID PRN PRN Reason: Constipation Ferrous Sulfate (Ferrous Sulfate 324 Mg Tablet.Dr) 324 mg PO DAILY [facility] Last Admin: 12/04/23 09:08 Dose: 324 mg Hydroxyzine HCl (Hydroxyzine Hcl 25 Mg Tablet) 25 mg PO Q6H PRN PRN Reason: Anxiety Insulin Human Lispro (Insulin Lispro 100 Unit/Ml 3 Ml Vial) 0 unit SUBCUT QIDACHS [facility]; Protocol Last Admin: 12/04/23 22:07 Dose: 6 unit Lisinopril (Lisinopril 10 Mg Tablet) 10 mg PO DAILY [facility]; Protocol Last Admin: 12/04/23 09:07 Dose: 10 mg Magnesium Hydroxide (Milk Of Magnesia 30 Ml Oral.Susp) 30 ml PO DAILY PRN PRN Reason: Constipation Metformin HCl (Metformin Hcl Er 500 Mg Tab.Er.24h) 1,000 mg PO BID [facility] Last Admin: 12/04/23 21:13 Dose: 1,000 mg Metoprolol Tartrate (Metoprolol Tartrate 25 Mg Tablet) 25 mg PO BID [facility]; Protocol Last Admin: 12/04/23 21:13 Dose: 25 mg Nicotine (Nicotine 21 Mg Patch.Td24) 21 mg TRANSDERMA DAILY [facility] Last Admin: 12/04/23 09:22 Dose: Not Given Nicotine Polacrilex (Nicotine Polacrilex 2 Mg Gum) 4 mg BUCCAL Q2H PRN PRN Reason: Nicotine Cravings Non-Formulary Medication (Dulaglutide [Trulicity]) 0.5 ml SUBCUT WE@0900 [facility] Omeprazole (Omeprazole 20 Mg Capsule.Dr) 20 mg PO DAILY@0630 [facility] Last Admin: 12/05/23 06:40 Dose: 20 mg Perphenazine (Perphenazine 4 Mg Tablet) 4 mg PO BID [facility] Last Admin: 12/04/23 21:14 Dose: 4 mg Senna/Docusate Sodium (Sennosides/Docusate Sodium Tablet) 1 tab PO DAILY [facility] Last Admin: 12/04/23 09:08 Dose: 1 tab Sertraline HCl (Sertraline Hcl 50 Mg Tablet) 50 mg PO DAILY [facility] Last Admin: 12/04/23 09:07 Dose: 50 mg Trazodone HCl (Trazodone Hcl 50 Mg Tablet) 50 mg PO BEDTIME MRX1 PRN PRN Reason: Insomnia Allergies Allergies Allergy/AdvReac Type Severity Reaction Status Date / Time Sulfa (Sulfonamide Allergy Intermediate PUFFY EYES Verified 12/01/23 16:51 Antibiotics) [SULFA (SULFONAMIDE ANTIBIOTICS)] Penicillins [PENICILLINS] Allergy Mild PT STATES Verified 12/01/23 16:51 NOTHING HAPPENS, ALLG LISTED ON TRANF SHEET Assessment & Plan Assessment & Plan (1) Schizophrenia: Qualifiers: Schizophrenia type: paranoid schizophrenia Qualified Code(s): F20.0 - Paranoid schizophrenia Status: Acute Code(s): F20.9 - Schizophrenia, unspecified Plan Patient is a 47 year old female with hx of Schizophrenia who presented to [facility] [place] via ambulance from groups home d/t command auditory hallucinations telling her to cut her wrists. Plan: CV 15 minute safety checks continue home mediations obtain collateral encourage groups discharge planning 12/03: Keeping to self. Laying in bed most of shift. Pt reports feeling tired from the symptoms ; pt stated, I'm okay but I'm still feeling anxious and depressed. The voices keep telling me I'm ugly. It makes me have thoughts of hurting myself . Pt denies HI/VH. Pt encouraged to attend groups. Continue current tx plan. 12/04: Showered. Pt reports she is starting to feel better ; pt stated, the voices are getting mild now. They quieted down . Pt denies SI/HI/VH. Keeping to self. encouraged to attend groups. Continue current tx plan. Patient educated on: diagnosis, medication risk/benefits and therapeutic strategies Informed Consent: understands Reason for continued inpatient stay Substantial Risk for: harm to self and med/psych decompensation Time Spent With Patient Time: Total time managing care of this patient today _20___ minutes.
[2023-12-05] MEDS: Metoprolol Tartrate 25 MG TABLET PO ×2 (09:06→21:24)
[2023-12-05] MEDS: Insulin Lispro 100 UNIT/ML 3 ML VIAL SUBCUT ×4 (09:06→21:39)
[2023-12-05] MEDS: metFORMIN HCl ER 500 MG TAB.ER.24H 1000 MG PO ×2 (09:06→21:25)
[2023-12-05] MEDS: Perphenazine 4 MG TABLET PO ×2 (09:06→21:22)
[2023-12-05] MEDS: cloZAPine 25 MG TABLET PO (09:06)
[2023-12-05] MEDS: lisinopriL 10 MG TABLET PO (09:06)
[2023-12-05] MEDS: Sennosides/Docusate Sodium TABLET 1 TAB PO (09:06)
[2023-12-05] MEDS: Ferrous Sulfate 324 MG TABLET.DR PO (09:06)
[2023-12-05 12:04] LABS: Glucose, Whole Blood 241 mg/dL (60-115)
[2023-12-05 17:47] LABS: Glucose, Whole Blood 224 mg/dL (60-115)
[2023-12-05 20:00] VITALS: BP 116/70; PULSE 107; TEMP 35.9; O2SAT 99
[2023-12-05] MEDS: Divalproex Sodium ER 500 MG TAB.ER.24H 2500 MG PO (21:20)
[2023-12-05] MEDS: cloZAPine 100 MG TABLET 300 MG PO (21:23)
[2023-12-05 21:24] VITALS: BP 116/70; PULSE 104
[2023-12-05 21:34] LABS: Glucose, Whole Blood 286 mg/dL (60-115)
[2023-12-06] MEDS: Omeprazole 20 MG CAPSULE.DR PO (06:26)
[2023-12-06 08:00] VITALS: BP 126/70; PULSE 89; RESP 16; TEMP 36.4; O2SAT 99
[2023-12-06 08:33] LABS: Glucose, Whole Blood 267 mg/dL (60-115)
[2023-12-06 09:03] VITALS: BP 126/70
[2023-12-06] MEDS: metFORMIN HCl ER 500 MG TAB.ER.24H 1000 MG PO ×2 (09:03→21:46)
[2023-12-06] MEDS: Sertraline HCL 50 MG TABLET PO (09:03)
[2023-12-06] MEDS: lisinopriL 10 MG TABLET PO (09:03)
[2023-12-06] MEDS: Sennosides/Docusate Sodium TABLET 1 TAB PO (09:03)
[2023-12-06 09:04] VITALS: BP 126/70; PULSE 89
[2023-12-06] MEDS: Perphenazine 4 MG TABLET PO ×2 (09:04→21:46)
[2023-12-06] MEDS: Metoprolol Tartrate 25 MG TABLET PO ×2 (09:04→21:46)
[2023-12-06] MEDS: cloZAPine 100 MG TABLET PO (09:04)
[2023-12-06] MEDS: Ferrous Sulfate 324 MG TABLET.DR PO (09:04)
[2023-12-06] MEDS: cloZAPine 25 MG TABLET PO (09:05)
[2023-12-06] MEDS: Insulin Lispro 100 UNIT/ML 3 ML VIAL SUBCUT ×4 (09:05→21:48)
[2023-12-06 13:10] LABS: Glucose, Whole Blood 231 mg/dL (60-115)
--- NOTE | 2023-12-06 17:19 | P.PNPSI_ITS ---
Subjective Subjective Date of Service: 12/06/23 Reason For Visit: crisis Interim History: reports she is doing good. AH getting mild. no CAH. per staff, c/o AH. taking meds. voices so much better days. [employer] calling her fat, dumb, stupid. slept 8 hours. Mental Status Exam Mental Status Exam Narrative: Pt is alert and oriented; behavior is calm, guarded; dressed in hospital attire; mood is described as good ; eye contact appropriate; Speech is normal rate, volume and not pressured; thought process is organized; Thought content is on tx; denies SI/HI/VH. Pt reports auditory hallucinations. Diagnostics Vital Signs (24Hr): Vital Signs - 24 hr 12/05/23 20:00 12/05/23 21:24 12/06/23 08:00 Temperature 96.6 F L 97.5 F Pulse Rate 107 H 104 H 89 Respiratory Rate 16 Blood Pressure 116/70 116/70 126/70 Pulse Oximetry 99 99 Oxygen Delivery Method Room Air Room Air 12/06/23 09:03 12/06/23 09:04 Temperature Pulse Rate 89 Respiratory Rate Blood Pressure 126/70 126/70 Pulse Oximetry Oxygen Delivery Method BMI result Body Mass Index 43.8 Labs 12/03/23 19:56 12/03/23 19:56 Labs: Laboratory Results - last 48 hr 12/04/23 12/04/23 12/05/23 17:32 21:40 08:16 POC Glucose 185 H 264 H 233 H 12/05/23 12/05/23 12/05/23 11:50 17:35 21:28 POC Glucose 241 H 224 H 286 H 12/06/23 12/06/23 08:29 13:03 POC Glucose 267 H 231 H Imaging Radiology Impressions: ITS Impressions Chest X-Ray 12/02/23 15:23 IMPRESSION: No acute cardiopulmonary disease. Medications Medications Current Medications Acetaminophen (Acetaminophen 325 Mg Tablet) 650 mg PO Q6H PRN PRN Reason: Headache/Pain Mild Scale (1-3) Al Hydroxide/Mg Hydroxide (Magnesium Hydrox/Alum Hydrox 30 Ml Oral.Susp) 30 ml PO Q6H PRN PRN Reason: Heartburn/Nausea Clozapine (Clozapine 25 Mg Tablet) 25 mg PO DAILY [facility] Last Admin: 12/06/23 09:05 Dose: 25 mg Clozapine (Clozapine 100 Mg Tablet) 100 mg PO DAILY [facility] Last Admin: 12/06/23 09:04 Dose: 100 mg Clozapine (Clozapine 100 Mg Tablet) 300 mg PO BEDTIME [facility] Last Admin: 12/05/23 21:23 Dose: 300 mg Divalproex Sodium (Divalproex Sodium Er 500 Mg Tab.Er.24h) 2,500 mg PO BEDTIME [facility] Last Admin: 12/05/23 21:20 Dose: 2,500 mg Docusate Sodium (Docusate Sodium 100 Mg Capsule) 100 mg PO BID PRN PRN Reason: Constipation Ferrous Sulfate (Ferrous Sulfate 324 Mg Tablet.) 324 mg PO DAILY [facility] Last Admin: 12/06/23 09:04 Dose: 324 mg Hydroxyzine HCl (Hydroxyzine Hcl 25 Mg Tablet) 25 mg PO Q6H PRN PRN Reason: Anxiety Insulin Human Lispro (Insulin Lispro 100 Unit/Ml 3 Ml Vial) 0 unit SUBCUT QIDACHS [facility]; Protocol Last Admin: 12/06/23 13:17 Dose: 4 unit Lisinopril (Lisinopril 10 Mg Tablet) 10 mg PO DAILY [facility]; Protocol Last Admin: 12/06/23 09:03 Dose: 10 mg Magnesium Hydroxide (Milk Of Magnesia 30 Ml Oral.Susp) 30 ml PO DAILY PRN PRN Reason: Constipation Metformin HCl (Metformin Hcl Er 500 Mg Tab.Er.24h) 1,000 mg PO BID [facility] Last Admin: 12/06/23 09:03 Dose: 1,000 mg Metoprolol Tartrate (Metoprolol Tartrate 25 Mg Tablet) 25 mg PO BID [facility]; Protocol Last Admin: 12/06/23 09:04 Dose: 25 mg Nicotine (Nicotine 21 Mg Patch.Td24) 21 mg TRANSDERMA DAILY [facility] Last Admin: 12/06/23 09:07 Dose: Not Given Nicotine Polacrilex (Nicotine Polacrilex 2 Mg Gum) 4 mg BUCCAL Q2H PRN PRN Reason: Nicotine Cravings Non-Formulary Medication (Dulaglutide [Trulicity]) 0.5 ml SUBCUT WE@0900 [facility] Omeprazole (Omeprazole 20 Mg Capsule.) 20 mg PO DAILY@0630 [facility] Last Admin: 12/06/23 06:26 Dose: 20 mg Perphenazine (Perphenazine 4 Mg Tablet) 4 mg PO BID [facility] Last Admin: 12/06/23 09:04 Dose: 4 mg Senna/Docusate Sodium (Sennosides/Docusate Sodium Tablet) 1 tab PO DAILY [facility] Last Admin: 12/06/23 09:03 Dose: 1 tab Sertraline HCl (Sertraline Hcl 50 Mg Tablet) 50 mg PO DAILY [facility] Last Admin: 12/06/23 09:03 Dose: 50 mg Trazodone HCl (Trazodone Hcl 50 Mg Tablet) 50 mg PO BEDTIME MRX1 PRN PRN Reason: Insomnia Allergies Allergies Allergy/AdvReac Type Severity Reaction Status Date / Time Sulfa (Sulfonamide Allergy Intermediate PUFFY EYES Verified 12/01/23 16:51 Antibiotics) [SULFA (SULFONAMIDE ANTIBIOTICS)] Penicillins [PENICILLINS] Allergy Mild PT STATES Verified 12/01/23 16:51 NOTHING HAPPENS, ALLG LISTED ON TRANF SHEET Assessment & Plan Assessment & Plan (1) Schizophrenia: Qualifiers: Schizophrenia type: paranoid schizophrenia Qualified Code(s): F20.0 - Paranoid schizophrenia Status: Acute Code(s): F20.9 - Schizophrenia, unspecified Plan Patient is a 47 year old female with hx of Schizophrenia who presented to [facility] ER via ambulance from groups home d/t command auditory hallucinations telling her to cut her wrists. Plan: CV 15 minute safety checks continue home mediations obtain collateral encourage groups discharge planning 12/03: Keeping to self. Laying in bed most of shift. Pt reports feeling tired from the symptoms ; pt stated, I'm okay but I'm still feeling anxious and depressed. The voices keep telling me I'm ugly. It makes me have thoughts of hurting myself . Pt denies HI/VH. Pt encouraged to attend groups. Continue current tx plan. 12/04: Showered. Pt reports she is starting to feel better ; pt stated, the voices are getting mild now. They quieted down . Pt denies SI/HI/VH. Keeping to self. encouraged to attend groups. Continue current tx plan. 12/05: reports improved AH, no CAH. just derogatory. continue current mgmt. Reason for continued inpatient stay Substantial Risk for: harm to self and rapid decompensation Time Spent With Patient Time: Total time managing care of this patient today ____ minutes.
[2023-12-06 17:56] LABS: Glucose, Whole Blood 274 mg/dL (60-115)
[2023-12-06 21:28] VITALS: BP 124/56; PULSE 105; RESP 16; TEMP 36; O2SAT 98
[2023-12-06 21:40] LABS: Glucose, Whole Blood 295 mg/dL (60-115)
[2023-12-06] MEDS: cloZAPine 100 MG TABLET 300 MG PO (21:46)
[2023-12-06] MEDS: Divalproex Sodium ER 500 MG TAB.ER.24H 2500 MG PO (21:46)
[2023-12-07] MEDS: Omeprazole 20 MG CAPSULE.DR PO (06:07)
--- NOTE | 2023-12-07 08:18 | HO.PSYCHPN ---
Subjective Subjective Date of Service: 12/07/23 Reason For Visit: crisis Interim History: Met with patient. Discussed with Nursing. Overall reports things are going okay. Voices are becoming less frequent. Denies suicidal thoughts. Self-care remains very poor. Sleep okay. Slightly less depressed. Medication Compliance: Yes Side effects from medications: No Attending Groups: No Review of Systems Acute medical concerns: No Review of Systems Review of Systems Nothing acute Mental Status Exam Mental Status Exam Narrative: Pt is alert and oriented; behavior is calm, guarded; very poor self-care, dressed in hospital attire; mood is described as ok ; eye contact appropriate; Speech is normal rate, volume and not pressured; thought process is organized; Thought content is on tx; denies SI/HI/VH. Pt reports auditory hallucinations. Diagnostics Vital Signs (24Hr): Vital Signs - 24 hr 12/06/23 09:03 12/06/23 09:04 12/06/23 21:28 Temperature 96.8 F Pulse Rate 89 105 H Respiratory Rate 16 Blood Pressure 126/70 126/70 124/56 L Pulse Oximetry 98 Oxygen Delivery Method Room Air BMI result Body Mass Index 43.8 Labs 12/03/23 19:56 12/03/23 19:56 Labs: Laboratory Results - last 48 hr 12/05/23 12/05/23 12/05/23 08:16 11:50 17:35 POC Glucose 233 H 241 H 224 H 12/05/23 12/06/23 12/06/23 21:28 08:29 13:03 POC Glucose 286 H 267 H 231 H 12/06/23 12/06/23 17:41 21:26 POC Glucose 274 H 295 H Imaging Radiology Impressions: ITS Impressions Chest X-Ray 12/02/23 15:23 IMPRESSION: No acute cardiopulmonary disease. Medications Medications Current Medications Acetaminophen (Acetaminophen 325 Mg Tablet) 650 mg PO Q6H PRN PRN Reason: Headache/Pain Mild Scale (1-3) Al Hydroxide/Mg Hydroxide (Magnesium Hydrox/Alum Hydrox 30 Ml Oral.Susp) 30 ml PO Q6H PRN PRN Reason: Heartburn/Nausea Clozapine (Clozapine 25 Mg Tablet) 25 mg PO DAILY REPLACED BY [facility] Last Admin: 12/06/23 09:05 Dose: 25 mg Clozapine (Clozapine 100 Mg Tablet) 100 mg PO DAILY [facility]PL[facility] BY [facility] Last Admin: 07/19/24 09:04 Dose: 100 mg Clozapine (Clozapine 100 Mg Tablet) 300 mg PO BEDTIME REPLACED BY [facility] Last Admin: 12/06/23 21:46 Dose: 300 mg Divalproex Sodium (Divalproex Sodium Er 500 Mg Tab.Er.24h) 2,500 mg PO BEDTIME REPLACED BY [facility] Last Admin: 12/06/23 21:46 Dose: 2,500 mg Docusate Sodium (Docusate Sodium 100 Mg Capsule) 100 mg PO BID PRN PRN Reason: Constipation Ferrous Sulfate (Ferrous Sulfate 324 Mg Tablet.) 324 mg PO DAILY [facility]PL[facility] Last Admin: 12/06/23 09:04 Dose: 324 mg Hydroxyzine HCl (Hydroxyzine Hcl 25 Mg Tablet) 25 mg PO Q6H PRN PRN Reason: Anxiety Insulin Human Lispro (Insulin Lispro 100 Unit/Ml 3 Ml Vial) 0 unit SUBCUT QIDACHS REPLACED BY [facility]; Protocol Last Admin: 12/06/23 21:48 Dose: 6 unit Lisinopril (Lisinopril 10 Mg Tablet) 10 mg PO DAILY [facility]PL[facility]; Protocol Last Admin: 12/06/23 09:03 Dose: 10 mg Magnesium Hydroxide (Milk Of Magnesia 30 Ml Oral.Susp) 30 ml PO DAILY PRN PRN Reason: Constipation Metformin HCl (Metformin Hcl Er 500 Mg Tab.Er.24h) 1,000 mg PO BID [facility]PL[facility] Last Admin: 12/06/23 21:46 Dose: 1,000 mg Metoprolol Tartrate (Metoprolol Tartrate 25 Mg Tablet) 25 mg PO BID [facility]PLACED BY [facility]; Protocol Last Admin: 12/06/23 21:46 Dose: 25 mg Nicotine (Nicotine 21 Mg Patch.Td24) 21 mg TRANSDERMA DAILY [facility]PLACED BY [facility] Last Admin: 12/06/23 09:07 Dose: Not Given Nicotine Polacrilex (Nicotine Polacrilex 2 Mg Gum) 4 mg BUCCAL Q2H PRN PRN Reason: Nicotine Cravings Non-Formulary Medication (Dulaglutide [Trulicity]) 0.5 ml SUBCUT WE@0900 REPLACED BY [facility] Omeprazole (Omeprazole 20 Mg Capsule.) 20 mg PO DAILY@0630 REPLACED BY [facility] Last Admin: 12/07/23 06:07 Dose: 20 mg Perphenazine (Perphenazine 4 Mg Tablet) 4 mg PO BID REPLACED BY [facility] Last Admin: 12/06/23 21:46 Dose: 4 mg Senna/Docusate Sodium (Sennosides/Docusate Sodium Tablet) 1 tab PO DAILY REPLACED BY [facility] Last Admin: 12/06/23 09:03 Dose: 1 tab Sertraline HCl (Sertraline Hcl 50 Mg Tablet) 50 mg PO DAILY REPLACED BY [facility] Last Admin: 12/06/23 09:03 Dose: 50 mg Trazodone HCl (Trazodone Hcl 50 Mg Tablet) 50 mg PO BEDTIME MRX1 PRN PRN Reason: Insomnia Allergies Allergies Allergy/AdvReac Type Severity Reaction Status Date / Time Sulfa (Sulfonamide Allergy Intermediate PUFFY EYES Verified 12/01/23 16:51 Antibiotics) [SULFA (SULFONAMIDE ANTIBIOTICS)] Penicillins [PENICILLINS] Allergy Mild PT STATES Verified 12/01/23 16:51 NOTHING HAPPENS, ALLG LISTED ON TRANF SHEET Assessment & Plan Assessment & Plan (1) Schizophrenia: Qualifiers: Schizophrenia type: paranoid schizophrenia Qualified Code(s): F20.0 - Paranoid schizophrenia Status: Acute Code(s): F20.9 - Schizophrenia, unspecified Plan Patient is a 47 year old female with hx of Schizophrenia who presented to [facility] via ambulance from groups home d/t command auditory hallucinations telling her to cut her wrists. Plan: CV 15 minute safety checks continue home mediations obtain collateral encourage groups discharge planning 12/03: Keeping to self. Laying in bed most of shift. Pt reports feeling tired from the symptoms ; pt stated, I'm okay but I'm still feeling anxious and depressed. The voices keep telling me I'm ugly. It makes me have thoughts of hurting myself . Pt denies HI/VH. Pt encouraged to attend groups. Continue current tx plan. 12/04: Showered. Pt reports she is starting to feel better ; pt stated, the voices are getting mild now. They quieted down . Pt denies SI/HI/VH. Keeping to self. encouraged to attend groups. Continue current tx plan. 12/05: reports improved AH, no CAH. just derogatory. continue current mgmt. 12/07/2023: No changes Reason for continued inpatient stay Substantial Risk for: harm to self and inability to function Time Spent With Patient Time: Total time managing care of this patient today ____ minutes.
[2023-12-07 08:27] LABS: Glucose, Whole Blood 278 mg/dL (60-115)
[2023-12-07 09:06] VITALS: PULSE 99; RESP 16; TEMP 36.9; O2SAT 99
[2023-12-07] MEDS: metFORMIN HCl ER 500 MG TAB.ER.24H 1000 MG PO ×2 (09:11→21:09)
[2023-12-07] MEDS: Sertraline HCL 50 MG TABLET PO (09:11)
[2023-12-07] MEDS: Sennosides/Docusate Sodium TABLET 1 TAB PO (09:11)
[2023-12-07] MEDS: cloZAPine 25 MG TABLET PO (09:11)
[2023-12-07] MEDS: cloZAPine 100 MG TABLET PO (09:11)
[2023-12-07] MEDS: Perphenazine 4 MG TABLET PO ×2 (09:12→21:09)
[2023-12-07] MEDS: Metoprolol Tartrate 25 MG TABLET PO ×2 (09:12→21:09)
[2023-12-07] MEDS: lisinopriL 10 MG TABLET PO (09:13)
[2023-12-07] MEDS: Ferrous Sulfate 324 MG TABLET.DR PO (09:13)
[2023-12-07] MEDS: Insulin Lispro 100 UNIT/ML 3 ML VIAL SUBCUT ×4 (09:13→21:11)
[2023-12-07 12:34] LABS: Glucose, Whole Blood 258 mg/dL (60-115)
[2023-12-07 18:05] LABS: Glucose, Whole Blood 227 mg/dL (60-115)
[2023-12-07 20:42] LABS: Glucose, Whole Blood 302 mg/dL (60-115)
[2023-12-07 21:05] VITALS: BP 131/58; PULSE 106; RESP 16; TEMP 36.3; O2SAT 98
[2023-12-07] MEDS: Divalproex Sodium ER 500 MG TAB.ER.24H 2500 MG PO (21:08)
[2023-12-07] MEDS: cloZAPine 100 MG TABLET 300 MG PO (21:09)
[2023-12-08] MEDS: Omeprazole 20 MG CAPSULE.DR PO (06:40)
[2023-12-08 07:15] VITALS: BP 122/69; PULSE 96; TEMP 36.4; O2SAT 97
[2023-12-08 08:00] VITALS: BP 122/69; PULSE 96; RESP 18; TEMP 36.4; O2SAT 97
[2023-12-08 08:47] LABS: Glucose, Whole Blood 327 mg/dL (60-115)
[2023-12-08] MEDS: Sertraline HCL 50 MG TABLET PO (08:54)
[2023-12-08] MEDS: Insulin Lispro 100 UNIT/ML 3 ML VIAL SUBCUT ×4 (08:54→20:32)
[2023-12-08] MEDS: metFORMIN HCl ER 500 MG TAB.ER.24H 1000 MG PO ×2 (08:54→20:30)
[2023-12-08] MEDS: Ferrous Sulfate 324 MG TABLET.DR PO (08:55)
[2023-12-08] MEDS: Metoprolol Tartrate 25 MG TABLET PO ×2 (08:55→20:31)
[2023-12-08] MEDS: lisinopriL 10 MG TABLET PO (08:55)
[2023-12-08] MEDS: cloZAPine 100 MG TABLET PO (08:55)
[2023-12-08] MEDS: Sennosides/Docusate Sodium TABLET 1 TAB PO (08:55)
[2023-12-08] MEDS: Perphenazine 4 MG TABLET PO ×2 (08:55→20:31)
[2023-12-08] MEDS: cloZAPine 25 MG TABLET PO (08:56)
--- NOTE | 2023-12-08 10:32 | HO.PSYCHPN ---
Subjective Subjective Date of Service: 12/08/23 Reason For Visit: crisis Interim History: Met with patient. Discussed with Nursing. Overall reports things are still going okay- less voices and intensity. No SI. Feels safe. Mood slightly better. Self-care remains very poor. Sleep okay. Medication Compliance: Yes Side effects from medications: No Attending Groups: No Review of Systems Acute medical concerns: No Review of Systems Review of Systems Nothing acute Mental Status Exam Mental Status Exam Narrative: Pt is alert and oriented; behavior is calm, guarded; very poor self-care, dressed in hospital attire; mood is described as ok ; eye contact appropriate; Speech is normal rate, volume and not pressured; thought process is organized; Thought content is on tx; denies SI/HI/VH. Pt reports auditory hallucinations (less intense). Diagnostics Vital Signs (24Hr): Vital Signs - 24 hr 12/07/23 21:05 12/08/23 07:15 Temperature 97.3 F 97.5 F Pulse Rate 106 H 96 Respiratory Rate 16 Blood Pressure 131/58 L 122/69 Pulse Oximetry 98 97 Oxygen Delivery Method Room Air Room Air BMI result Body Mass Index 43.8 Labs 12/03/23 19:56 12/03/23 19:56 Labs: Laboratory Results - last 48 hr 12/06/23 12/06/23 12/06/23 13:03 17:41 21:26 POC Glucose 231 H 274 H 295 H 12/07/23 12/07/23 12/07/23 08:18 12:18 18:00 POC Glucose 278 H 258 H 227 H 12/07/23 12/08/23 20:38 08:39 POC Glucose 302 H 327 H Imaging Radiology Impressions: ITS Impressions Chest X-Ray 12/02/23 15:23 IMPRESSION: No acute cardiopulmonary disease. Medications Medications Current Medications Acetaminophen (Acetaminophen 325 Mg Tablet) 650 mg PO Q6H PRN PRN Reason: Headache/Pain Mild Scale (1-3) Al Hydroxide/Mg Hydroxide (Magnesium Hydrox/Alum Hydrox 30 Ml Oral.Susp) 30 ml PO Q6H PRN PRN Reason: Heartburn/Nausea Clozapine (Clozapine 25 Mg Tablet) 25 mg PO DAILY [facility] Last Admin: 12/08/23 08:56 Dose: 25 mg Clozapine (Clozapine 100 Mg Tablet) 100 mg PO DAILY [facility] Last Admin: 12/08/23 08:55 Dose: 100 mg Clozapine (Clozapine 100 Mg Tablet) 300 mg PO BEDTIME [facility] Last Admin: 12/07/23 21:09 Dose: 300 mg Divalproex Sodium (Divalproex Sodium Er 500 Mg Tab.Er.24h) 2,500 mg PO BEDTIME [facility] Last Admin: 12/07/23 21:08 Dose: 2,500 mg Docusate Sodium (Docusate Sodium 100 Mg Capsule) 100 mg PO BID PRN PRN Reason: Constipation Ferrous Sulfate (Ferrous Sulfate 324 Mg Tablet.) 324 mg PO DAILY [facility] Last Admin: 12/08/23 08:55 Dose: 324 mg Hydroxyzine HCl (Hydroxyzine Hcl 25 Mg Tablet) 25 mg PO Q6H PRN PRN Reason: Anxiety Insulin Human Lispro (Insulin Lispro 100 Unit/Ml 3 Ml Vial) 0 unit SUBCUT QIDACHS [facility]; Protocol Last Admin: 12/08/23 08:54 Dose: 8 unit Lisinopril (Lisinopril 10 Mg Tablet) 10 mg PO DAILY [facility]; Protocol Last Admin: 12/08/23 08:55 Dose: 10 mg Magnesium Hydroxide (Milk Of Magnesia 30 Ml Oral.Susp) 30 ml PO DAILY PRN PRN Reason: Constipation Metformin HCl (Metformin Hcl Er 500 Mg Tab.Er.24h) 1,000 mg PO BID [facility] Last Admin: 12/08/23 08:54 Dose: 1,000 mg Metoprolol Tartrate (Metoprolol Tartrate 25 Mg Tablet) 25 mg PO BID [facility]; Protocol Last Admin: 12/08/23 08:55 Dose: 25 mg Nicotine (Nicotine 21 Mg Patch.Td24) 21 mg TRANSDERMA DAILY [facility] Last Admin: 12/08/23 09:00 Dose: Not Given Nicotine Polacrilex (Nicotine Polacrilex 2 Mg Gum) 4 mg BUCCAL Q2H PRN PRN Reason: Nicotine Cravings Non-Formulary Medication (Dulaglutide [Trulicity]) 0.5 ml SUBCUT WE@0900 [facility] Omeprazole (Omeprazole 20 Mg Capsule.) 20 mg PO DAILY@0630 [facility] Last Admin: 12/08/23 06:40 Dose: 20 mg Perphenazine (Perphenazine 4 Mg Tablet) 4 mg PO BID [facility] Last Admin: 12/08/23 08:55 Dose: 4 mg Senna/Docusate Sodium (Sennosides/Docusate Sodium Tablet) 1 tab PO DAILY [facility] Last Admin: 12/08/23 08:55 Dose: 1 tab Sertraline HCl (Sertraline Hcl 50 Mg Tablet) 50 mg PO DAILY [facility] Last Admin: 12/08/23 08:54 Dose: 50 mg Trazodone HCl (Trazodone Hcl 50 Mg Tablet) 50 mg PO BEDTIME MRX1 PRN PRN Reason: Insomnia Allergies Allergies Allergy/AdvReac Type Severity Reaction Status Date / Time Sulfa (Sulfonamide Allergy Intermediate PUFFY EYES Verified 12/01/23 16:51 Antibiotics) [SULFA (SULFONAMIDE ANTIBIOTICS)] Penicillins [PENICILLINS] Allergy Mild PT STATES Verified 12/01/23 16:51 NOTHING HAPPENS, ALLG LISTED ON TRANF SHEET Assessment & Plan Assessment & Plan (1) Schizophrenia: Qualifiers: Schizophrenia type: paranoid schizophrenia Qualified Code(s): F20.0 - Paranoid schizophrenia Status: Acute Code(s): F20.9 - Schizophrenia, unspecified Plan Patient is a 47 year old female with hx of Schizophrenia who presented to [facility] via ambulance from groups home d/t command auditory hallucinations telling her to cut her wrists. Plan: CV 15 minute safety checks continue home mediations obtain collateral encourage groups discharge planning 12/03: Keeping to self. Laying in bed most of shift. Pt reports feeling tired from the symptoms ; pt stated, I'm okay but I'm still feeling anxious and depressed. The voices keep telling me I'm ugly. It makes me have thoughts of hurting myself . Pt denies HI/VH. Pt encouraged to attend groups. Continue current tx plan. 12/04: Showered. Pt reports she is starting to feel better ; pt stated, the voices are getting mild now. They quieted down . Pt denies SI/HI/VH. Keeping to self. encouraged to attend groups. Continue current tx plan. 12/05: reports improved AH, no CAH. just derogatory. continue current mgmt. 12/08/2023: No changes Reason for continued inpatient stay Substantial Risk for: inability to function Time Spent With Patient Time: Total time managing care of this patient today ____ minutes.
[2023-12-08 12:39] LABS: Glucose, Whole Blood 298 mg/dL (60-115)
[2023-12-08 17:55] LABS: Glucose, Whole Blood 252 mg/dL (60-115)
[2023-12-08 20:22] LABS: Glucose, Whole Blood 267 mg/dL (60-115)
[2023-12-08 20:27] VITALS: BP 139/79; PULSE 115; RESP 16; TEMP 37; O2SAT 98
[2023-12-08] MEDS: Divalproex Sodium ER 500 MG TAB.ER.24H 2500 MG PO (20:29)
[2023-12-08] MEDS: cloZAPine 100 MG TABLET 300 MG PO (20:31)
[2023-12-09 06:08] LABS: Clozapine (Clozaril) 297 mcg/L; Norclozapine 83 mcg/L (25-400)
[2023-12-09 07:30] VITALS: BP 125/69; PULSE 98; RESP 16; TEMP 36.4; O2SAT 99
[2023-12-09] MEDS: Sertraline HCL 50 MG TABLET PO (08:06)
[2023-12-09] MEDS: Perphenazine 4 MG TABLET PO ×2 (08:06→20:35)
[2023-12-09] MEDS: Omeprazole 20 MG CAPSULE.DR PO (08:06)
[2023-12-09] MEDS: Ferrous Sulfate 324 MG TABLET.DR PO (08:07)
[2023-12-09] MEDS: cloZAPine 25 MG TABLET PO (08:07)
[2023-12-09 08:08] VITALS: BP 125/69; PULSE 98
[2023-12-09] MEDS: cloZAPine 100 MG TABLET PO (08:08)
[2023-12-09] MEDS: Metoprolol Tartrate 25 MG TABLET PO ×2 (08:08→20:34)
[2023-12-09] MEDS: Sennosides/Docusate Sodium TABLET 1 TAB PO (08:09)
[2023-12-09 08:10] VITALS: BP 125/69
[2023-12-09] MEDS: lisinopriL 10 MG TABLET PO (08:10)
[2023-12-09 09:00] LABS: Glucose, Whole Blood 251 mg/dL (60-115)
[2023-12-09] MEDS: metFORMIN HCl ER 500 MG TAB.ER.24H 1000 MG PO ×2 (09:09→20:36)
[2023-12-09] MEDS: Insulin Lispro 100 UNIT/ML 3 ML VIAL SUBCUT ×4 (09:10→20:38)
--- NOTE | 2023-12-09 11:24 | HO.PM.IMPN ---
Subjective Subjective Date of Service: 12/09/23 Interval History: Received consultation for elevated blood sugars between 250-300 range Patient with known diabetes mellitus type 2 on insulin and metformin at home Patient seen in her room 326 bed 2 Patient offers no complaints of blurred vision, no nausea no vomiting, no abdominal pain, no urinary frequency, urgency, following diabetic diet. Blood sugars around 100 at home. Review of Systems All other system reviewed and negative Physical Exam Vital Signs: Vital Signs: Last Vital Signs Temp 97.5 F 12/09/23 07:30 Pulse 98 12/09/23 08:08 Resp 16 12/09/23 07:30 BP 125/69 12/09/23 08:10 Pulse Ox 99 12/09/23 07:30 O2 Del Method Room Air 12/09/23 07:30 BMI result Body Mass Index 43.8 Const: Other: General resting comfortably in no acute distress. Anicteric sclera Neck no JVD. CVS regular rate rhythm, Respiratory lungs clear to auscultation, no respiratory distress Gastrointestinal abdomen soft, non tender, bowel sounds audible Extremities no edema. Neuro non focal Skin no rash Objective Data Active Medications Acetaminophen (Acetaminophen 325 Mg Tablet) 650 mg PO Q6H PRN PRN Reason: Headache/Pain Mild Scale (1-3) Al Hydroxide/Mg Hydroxide (Magnesium Hydrox/Alum Hydrox 30 Ml Oral.Susp) 30 ml PO Q6H PRN PRN Reason: Heartburn/Nausea Clozapine (Clozapine 25 Mg Tablet) 25 mg PO DAILY [facility] Last Admin: 12/09/23 08:07 Dose: 25 mg Documented By: JOSE Clozapine (Clozapine 100 Mg Tablet) 100 mg PO DAILY [facility] Last Admin: 12/09/23 08:08 Dose: 100 mg Documented By: JOSE Clozapine (Clozapine 100 Mg Tablet) 300 mg PO BEDTIME [facility] Last Admin: 12/08/23 20:31 Dose: 300 mg Documented By: FLEMINGreg Divalproex Sodium (Divalproex Sodium Er 500 Mg Tab.Er.24h) 2,500 mg PO BEDTIME [facility] Last Admin: 12/08/23 20:29 Dose: 2,500 mg Documented By: FLEPASHA Docusate Sodium (Docusate Sodium 100 Mg Capsule) 100 mg PO BID PRN PRN Reason: Constipation Ferrous Sulfate (Ferrous Sulfate 324 Mg Tablet.) 324 mg PO DAILY [facility] Last Admin: 12/09/23 08:07 Dose: 324 mg Documented By: JOSE Hydroxyzine HCl (Hydroxyzine Hcl 25 Mg Tablet) 25 mg PO Q6H PRN PRN Reason: Anxiety Insulin Human Lispro (Insulin Lispro 100 Unit/Ml 3 Ml Vial) 0 unit SUBCUT QIDACHS [facility]; Protocol Last Admin: 12/09/23 09:10 Dose: 6 unit Documented By: JOSE Lisinopril (Lisinopril 10 Mg Tablet) 10 mg PO DAILY [facility]; Protocol Last Admin: 12/09/23 08:10 Dose: 10 mg Documented By: JOSE Magnesium Hydroxide (Milk Of Magnesia 30 Ml Oral.Susp) 30 ml PO DAILY PRN PRN Reason: Constipation Metformin HCl (Metformin Hcl Er 500 Mg Tab.Er.24h) 1,000 mg PO BID [facility] Last Admin: 12/09/23 09:09 Dose: 1,000 mg Documented By: JOSE Metoprolol Tartrate (Metoprolol Tartrate 25 Mg Tablet) 25 mg PO BID [facility]; Protocol Last Admin: 12/09/23 08:08 Dose: 25 mg Documented By: JOSE Nicotine (Nicotine 21 Mg Patch.Td24) 21 mg TRANSDERMA DAILY [facility] Last Admin: 12/09/23 08:50 Dose: Not Given Documented By: JOSE Non-Admin Reason: Patient Refused Nicotine Polacrilex (Nicotine Polacrilex 2 Mg Gum) 4 mg BUCCAL Q2H PRN PRN Reason: Nicotine Cravings Omeprazole (Omeprazole 20 Mg Capsule.Dr) 20 mg PO DAILY@0630 [facility] Last Admin: 12/09/23 08:06 Dose: 20 mg Documented By: JOSE Perphenazine (Perphenazine 4 Mg Tablet) 4 mg PO BID [facility] Last Admin: 12/09/23 08:06 Dose: 4 mg Documented By: JOSE Senna/Docusate Sodium (Sennosides/Docusate Sodium Tablet) 1 tab PO DAILY [facility] Last Admin: 12/09/23 08:09 Dose: 1 tab Documented By: JOSE Sertraline HCl (Sertraline Hcl 50 Mg Tablet) 50 mg PO DAILY [facility] Last Admin: 12/09/23 08:06 Dose: 50 mg Documented By: JOSE Trazodone HCl (Trazodone Hcl 50 Mg Tablet) 50 mg PO BEDTIME MRX1 PRN PRN Reason: Insomnia Labs 12/03/23 19:56 12/03/23 19:56 Labs: Laboratory Results - last 24 hr 12/03/23 12/08/23 12/08/23 19:56 12:30 17:46 POC Glucose 298 H 252 H Clozapine 297 Norclozapine 83 12/08/23 12/09/23 20:12 08:49 POC Glucose 267 H 251 H Clozapine Norclozapine Assessment and Plan (1) Hyperglycemia due to type 2 diabetes mellitus: Status: Acute Plan Medical consult obtained for hyperglycemia in a patient with type 2 diabetes mellitus: Diabetes mellitus type 2 with hyperglycemia: Recommend to continue metformin 1000 mg b.i.d. and diabetic diet On Trulicity at home currently on hold Will up titrate insulin sliding scale and add Lantus at bedtime Recommend to resume Trulicity upon discharge Strongly recommend to follow low-calorie diabetic diet that will help to lose weight with underlying history of morbid obesity. Last lab work from December 02 showed normal renal function and electrolytes Quality Stroke Does the patient have a stroke diagnosis?: No VTE Prior VTE?: No VTE Risk Level:: Medical - moderate - high VTE Device Contraindication: Treatment Not Indicated VTE Drug Contraindication: Treatment Not Indicated
[2023-12-09 12:56] LABS: Glucose, Whole Blood 310 mg/dL (60-115)
[2023-12-09 17:35] LABS: Glucose, Whole Blood 244 mg/dL (60-115)
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
[2023-12-09 20:00] VITALS: BP 115/65; PULSE 120; RESP 16; TEMP 36.7; O2SAT 99
[2023-12-09 20:14] LABS: Glucose, Whole Blood 360 mg/dL (60-115)
[2023-12-09] MEDS: Divalproex Sodium ER 500 MG TAB.ER.24H 2500 MG PO (20:34)
[2023-12-09] MEDS: cloZAPine 100 MG TABLET 300 MG PO (20:35)
[2023-12-09] MEDS: Insulin Glargine,Hum.rec.anlog 100 UNIT/ML 10 ML VIAL 10 UNIT SUBCUT (20:36)
--- NOTE | 2023-12-09 22:18 | HO.PSYCHPN ---
Subjective Subjective Date of Service: 12/09/23 Reason For Visit: crisis Interim History: reports sleeping a lot better. AH volume's getting lower. per staff, slept 7 hours. eating. pleasant. not attending groups. not showering. +AH. FSBS elevated. Mental Status Exam Mental Status Exam Narrative: Pt is alert and oriented; behavior is calm, guarded; dressed in hospital attire; mood is described as good ; eye contact appropriate; Speech is normal rate, volume and not pressured; thought process is organized; Thought content is on tx; denies SI/HI/VH. Pt reports auditory hallucinations. Diagnostics Vital Signs (24Hr): Vital Signs - 24 hr 12/09/23 07:30 12/09/23 08:08 12/09/23 08:10 Temperature 97.5 F Pulse Rate 98 98 Respiratory Rate 16 Blood Pressure 125/69 125/69 125/69 Pulse Oximetry 99 Oxygen Delivery Method Room Air 12/09/23 20:00 Temperature 98.1 F Pulse Rate 120 H Respiratory Rate 16 Blood Pressure 115/65 Pulse Oximetry 99 Oxygen Delivery Method Room Air BMI result Body Mass Index 43.8 Labs 12/03/23 19:56 12/03/23 19:56 Labs: Laboratory Results - last 48 hr 12/03/23 12/08/23 12/08/23 19:56 08:39 12:30 POC Glucose 327 H 298 H Clozapine 297 Norclozapine 83 12/08/23 12/08/23 12/09/23 17:46 20:12 08:49 POC Glucose 252 H 267 H 251 H Clozapine Norclozapine 12/09/23 12/09/23 12/09/23 12:51 17:28 19:58 POC Glucose 310 H 244 H 360 H* Clozapine Norclozapine Imaging Radiology Impressions: ITS Impressions Chest X-Ray 12/02/23 15:23 IMPRESSION: No acute cardiopulmonary disease. Medications Medications Current Medications Acetaminophen (Acetaminophen 325 Mg Tablet) 650 mg PO Q6H PRN PRN Reason: Headache/Pain Mild Scale (1-3) Al Hydroxide/Mg Hydroxide (Magnesium Hydrox/Alum Hydrox 30 Ml Oral.Susp) 30 ml PO Q6H PRN PRN Reason: Heartburn/Nausea Clozapine (Clozapine 25 Mg Tablet) 25 mg PO DAILY [facility] Last Admin: 12/09/23 08:07 Dose: 25 mg Clozapine (Clozapine 100 Mg Tablet) 100 mg PO DAILY [facility] Last Admin: 12/09/23 08:08 Dose: 100 mg Clozapine (Clozapine 100 Mg Tablet) 300 mg PO BEDTIME [facility] Last Admin: 12/09/23 20:35 Dose: 300 mg Divalproex Sodium (Divalproex Sodium Er 500 Mg Tab.Er.24h) 2,500 mg PO BEDTIME [facility] Last Admin: 12/09/23 20:34 Dose: 2,500 mg Docusate Sodium (Docusate Sodium 100 Mg Capsule) 100 mg PO BID PRN PRN Reason: Constipation Ferrous Sulfate (Ferrous Sulfate 324 Mg Tablet.) 324 mg PO DAILY [facility] Last Admin: 12/09/23 08:07 Dose: 324 mg Hydroxyzine HCl (Hydroxyzine Hcl 25 Mg Tablet) 25 mg PO Q6H PRN PRN Reason: Anxiety Insulin Glargine (Insulin Glargine,Hum.Rec.Anlog 100 Unit/Ml 10 Ml Vial) 10 unit SUBCUT BEDTIME [facility] Last Admin: 12/09/23 20:36 Dose: 10 unit Insulin Human Lispro (Insulin Lispro 100 Unit/Ml 3 Ml Vial) 0 unit SUBCUT QIDACHS [facility]; Protocol Last Admin: 12/09/23 20:38 Dose: 14 unit Lisinopril (Lisinopril 10 Mg Tablet) 10 mg PO DAILY [facility]; Protocol Last Admin: 12/09/23 08:10 Dose: 10 mg Magnesium Hydroxide (Milk Of Magnesia 30 Ml Oral.Susp) 30 ml PO DAILY PRN PRN Reason: Constipation Metformin HCl (Metformin Hcl Er 500 Mg Tab.Er.24h) 1,000 mg PO BID [facility] Last Admin: 12/09/23 20:36 Dose: 1,000 mg Metoprolol Tartrate (Metoprolol Tartrate 25 Mg Tablet) 25 mg PO BID [facility]; Protocol Last Admin: 12/09/23 20:34 Dose: 25 mg Nicotine (Nicotine 21 Mg Patch.Td24) 21 mg TRANSDERMA DAILY [facility] Last Admin: 12/09/23 08:50 Dose: Not Given Nicotine Polacrilex (Nicotine Polacrilex 2 Mg Gum) 4 mg BUCCAL Q2H PRN PRN Reason: Nicotine Cravings Omeprazole (Omeprazole 20 Mg Capsule.) 20 mg PO DAILY@0630 [facility] Last Admin: 12/09/23 08:06 Dose: 20 mg Perphenazine (Perphenazine 4 Mg Tablet) 4 mg PO BID [facility] Last Admin: 12/09/23 20:35 Dose: 4 mg Senna/Docusate Sodium (Sennosides/Docusate Sodium Tablet) 1 tab PO DAILY [facility] Last Admin: 12/09/23 08:09 Dose: 1 tab Sertraline HCl (Sertraline Hcl 50 Mg Tablet) 50 mg PO DAILY [facility] Last Admin: 12/09/23 08:06 Dose: 50 mg Trazodone HCl (Trazodone Hcl 50 Mg Tablet) 50 mg PO BEDTIME MRX1 PRN PRN Reason: Insomnia Allergies Allergies Allergy/AdvReac Type Severity Reaction Status Date / Time Sulfa (Sulfonamide Allergy Intermediate PUFFY EYES Verified 12/01/23 16:51 Antibiotics) [SULFA (SULFONAMIDE ANTIBIOTICS)] Penicillins [PENICILLINS] Allergy Mild PT STATES Verified 12/01/23 16:51 NOTHING HAPPENS, ALLG LISTED ON TRANF SHEET Assessment & Plan Assessment & Plan (1) Hyperglycemia due to type 2 diabetes mellitus: Status: Acute Code(s): E11.65 - Type 2 diabetes mellitus with hyperglycemia Plan Medical consult obtained for hyperglycemia in a patient with type 2 diabetes mellitus: Diabetes mellitus type 2 with hyperglycemia: Recommend to continue metformin 1000 mg b.i.d. and diabetic diet On Trulicity at home currently on hold Will up titrate insulin sliding scale and add Lantus at bedtime Recommend to resume Trulicity upon discharge Strongly recommend to follow low-calorie diabetic diet that will help to lose weight with underlying history of morbid obesity. Last lab work from December 02 showed normal renal function and electrolytes 12/08: AH continue to gradually improve. sleeping well. continue current mgmt. Reason for continued inpatient stay Substantial Risk for: harm to self, inability to function and rapid decompensation Time Spent With Patient Time: Total time managing care of this patient today ____ minutes.
[2023-12-10] MEDS: Omeprazole 20 MG CAPSULE.DR PO (07:02)
[2023-12-10 08:00] VITALS: BP 140/94; PULSE 105; RESP 16; TEMP 36.5; O2SAT 97
[2023-12-10] MEDS: Perphenazine 4 MG TABLET PO ×2 (08:32→20:37)
[2023-12-10] MEDS: Sennosides/Docusate Sodium TABLET 1 TAB PO (08:32)
[2023-12-10] MEDS: cloZAPine 100 MG TABLET PO (08:32)
[2023-12-10] MEDS: metFORMIN HCl ER 500 MG TAB.ER.24H 1000 MG PO ×2 (08:32→20:36)
[2023-12-10] MEDS: lisinopriL 10 MG TABLET PO (08:33)
[2023-12-10] MEDS: Metoprolol Tartrate 25 MG TABLET PO ×2 (08:33→20:37)
[2023-12-10] MEDS: Ferrous Sulfate 324 MG TABLET.DR PO (08:33)
[2023-12-10] MEDS: Sertraline HCL 50 MG TABLET PO (08:33)
[2023-12-10] MEDS: cloZAPine 25 MG TABLET PO (08:33)
[2023-12-10 08:42] LABS: Glucose, Whole Blood 315 mg/dL (60-115)
[2023-12-10 09:00] LABS: Neut%MD 51.7 %; WBCANC 9.7 X10*3/uL
[2023-12-10] MEDS: Insulin Lispro 100 UNIT/ML 3 ML VIAL SUBCUT ×4 (09:04→20:39)
[2023-12-10 09:28] LABS: Creatinine Clr Calc Pharmacy 110.1; Estimated Glomerular Filt Rate > 60
[2023-12-10 13:03] LABS: Glucose, Whole Blood 268 mg/dL (60-115)
--- NOTE | 2023-12-10 15:46 | P.PNPSI_ITS ---
Subjective Subjective Date of Service: 12/10/23 Reason For Visit: crisis Interim History: energetic, isaac, says she is feeling better. would like to plan for saturday discharge. no concerns. per staff, dep 7-8, +AH yesterday. denies anxiety. FSBS 251, 310, 244, 360, 140. slept about 6 hours. Mental Status Exam Mental Status Exam Narrative: Pt is alert and oriented; behavior is peppy; dressed in hospital attire; mood is described as good ; eye contact appropriate; Speech is normal rate, volume and not pressured; thought process is organized; Thought content is on tx; no SI/HI/AVH expressed. Diagnostics Vital Signs (24Hr): Vital Signs - 24 hr 12/09/23 20:00 12/10/23 08:00 Temperature 98.1 F 97.7 F Pulse Rate 120 H 105 H Respiratory Rate 16 16 Blood Pressure 115/65 140/94 H Pulse Oximetry 99 97 Oxygen Delivery Method Room Air Room Air BMI result Body Mass Index 43.8 Labs 12/03/23 19:56 12/10/23 08:37 Labs: Laboratory Results - last 48 hr 12/03/23 12/08/23 12/08/23 19:56 17:46 20:12 Absolute Neuts (auto) Creatinine Estim Creat Clear Calc Estimated GFR POC Glucose 252 H 267 H Clozapine 297 Norclozapine 83 12/09/23 12/09/23 12/09/23 08:49 12:51 17:28 Absolute Neuts (auto) Creatinine Estim Creat Clear Calc Estimated GFR POC Glucose 251 H 310 H 244 H Clozapine Norclozapine 12/09/23 12/10/23 12/10/23 19:58 08:35 08:37 Absolute Neuts (auto) 5.0 Creatinine 0.78 Estim Creat Clear Calc 110.1 Estimated GFR > 60 POC Glucose 360 H* 315 H Clozapine Norclozapine 12/10/23 12:58 Absolute Neuts (auto) Creatinine Estim Creat Clear Calc Estimated GFR POC Glucose 268 H Clozapine Norclozapine Imaging Radiology Impressions: ITS Impressions Chest X-Ray 12/02/23 15:23 IMPRESSION: No acute cardiopulmonary disease. Medications Medications Current Medications Acetaminophen (Acetaminophen 325 Mg Tablet) 650 mg PO Q6H PRN PRN Reason: Headache/Pain Mild Scale (1-3) Al Hydroxide/Mg Hydroxide (Magnesium Hydrox/Alum Hydrox 30 Ml Oral.Susp) 30 ml PO Q6H PRN PRN Reason: Heartburn/Nausea Clozapine (Clozapine 25 Mg Tablet) 25 mg PO DAILY [facility] Last Admin: 12/10/23 08:33 Dose: 25 mg Clozapine (Clozapine 100 Mg Tablet) 100 mg PO DAILY [facility] Last Admin: 12/10/23 08:32 Dose: 100 mg Clozapine (Clozapine 100 Mg Tablet) 300 mg PO BEDTIME [facility] Last Admin: 12/09/23 20:35 Dose: 300 mg Divalproex Sodium (Divalproex Sodium Er 500 Mg Tab.Er.24h) 2,500 mg PO BEDTIME [facility] Last Admin: 12/09/23 20:34 Dose: 2,500 mg Docusate Sodium (Docusate Sodium 100 Mg Capsule) 100 mg PO BID PRN PRN Reason: Constipation Ferrous Sulfate (Ferrous Sulfate 324 Mg Tablet.Dr) 324 mg PO DAILY [facility] Last Admin: 12/10/23 08:33 Dose: 324 mg Hydroxyzine HCl (Hydroxyzine Hcl 25 Mg Tablet) 25 mg PO Q6H PRN PRN Reason: Anxiety Insulin Glargine (Insulin Glargine,Hum.Rec.Anlog 100 Unit/Ml 10 Ml Vial) 10 unit SUBCUT BEDTIME [facility] Last Admin: 12/09/23 20:36 Dose: 10 unit Insulin Human Lispro (Insulin Lispro 100 Unit/Ml 3 Ml Vial) 0 unit SUBCUT QIDACHS [facility]; Protocol Last Admin: 12/10/23 13:53 Dose: 8 unit Lisinopril (Lisinopril 10 Mg Tablet) 10 mg PO DAILY [facility]; Protocol Last Admin: 12/10/23 08:33 Dose: 10 mg Magnesium Hydroxide (Milk Of Magnesia 30 Ml Oral.Susp) 30 ml PO DAILY PRN PRN Reason: Constipation Metformin HCl (Metformin Hcl Er 500 Mg Tab.Er.24h) 1,000 mg PO BID [facility] Last Admin: 12/10/23 08:32 Dose: 1,000 mg Metoprolol Tartrate (Metoprolol Tartrate 25 Mg Tablet) 25 mg PO BID [facility]; Protocol Last Admin: 12/10/23 08:33 Dose: 25 mg Nicotine (Nicotine 21 Mg Patch.Td24) 21 mg TRANSDERMA DAILY [facility] Last Admin: 12/10/23 08:54 Dose: Not Given Nicotine Polacrilex (Nicotine Polacrilex 2 Mg Gum) 4 mg BUCCAL Q2H PRN PRN Reason: Nicotine Cravings Omeprazole (Omeprazole 20 Mg Capsule.Dr) 20 mg PO DAILY@0630 [facility] Last Admin: 12/10/23 07:02 Dose: 20 mg Perphenazine (Perphenazine 4 Mg Tablet) 4 mg PO BID [facility] Last Admin: 12/10/23 08:32 Dose: 4 mg Senna/Docusate Sodium (Sennosides/Docusate Sodium Tablet) 1 tab PO DAILY [facility] Last Admin: 12/10/23 08:32 Dose: 1 tab Sertraline HCl (Sertraline Hcl 50 Mg Tablet) 50 mg PO DAILY [facility] Last Admin: 12/10/23 08:33 Dose: 50 mg Trazodone HCl (Trazodone Hcl 50 Mg Tablet) 50 mg PO BEDTIME MRX1 PRN PRN Reason: Insomnia Allergies Allergies Allergy/AdvReac Type Severity Reaction Status Date / Time Sulfa (Sulfonamide Allergy Intermediate PUFFY EYES Verified 12/01/23 16:51 Antibiotics) [SULFA (SULFONAMIDE ANTIBIOTICS)] Penicillins [PENICILLINS] Allergy Mild PT STATES Verified 12/01/23 16:51 NOTHING HAPPENS, ALLG LISTED ON TRANF SHEET Assessment & Plan Assessment & Plan (1) Hyperglycemia due to type 2 diabetes mellitus: Status: Acute Code(s): E11.65 - Type 2 diabetes mellitus with hyperglycemia Plan Medical consult obtained for hyperglycemia in a patient with type 2 diabetes mellitus: Diabetes mellitus type 2 with hyperglycemia: Recommend to continue metformin 1000 mg b.i.d. and diabetic diet On Trulicity at home currently on hold Will up titrate insulin sliding scale and add Lantus at bedtime Recommend to resume Trulicity upon discharge Strongly recommend to follow low-calorie diabetic diet that will help to lose weight with underlying history of morbid obesity. Last lab work from December 02 showed normal renal function and electrolytes 12/08: AH continue to gradually improve. sleeping well. continue current mgmt. 12/09: smiley and energetic today. states she is feeling better, tentative DC plan made for saturday. Reason for continued inpatient stay Substantial Risk for: inability to function and rapid decompensation Time Spent With Patient Time: Total time managing care of this patient today ____ minutes.
[2023-12-10 18:01] LABS: Glucose, Whole Blood 305 mg/dL (60-115)
[2023-12-10 20:01] LABS: Glucose, Whole Blood 285 mg/dL (60-115)
[2023-12-10 20:20] VITALS: BP 163/73; PULSE 106; RESP 18; TEMP 36.3; O2SAT 99
[2023-12-10] MEDS: Divalproex Sodium ER 500 MG TAB.ER.24H 2500 MG PO (20:35)
[2023-12-10] MEDS: cloZAPine 100 MG TABLET 300 MG PO (20:36)
[2023-12-10] MEDS: Insulin Glargine,Hum.rec.anlog 100 UNIT/ML 10 ML VIAL 10 UNIT SUBCUT (20:41)
[2023-12-10 22:51] VITALS: BP 107/53; PULSE 97; RESP 16
[2023-12-11 08:12] VITALS: BP 120/66; PULSE 91; RESP 18; TEMP 36.3; O2SAT 98
[2023-12-11 08:45] LABS: Glucose, Whole Blood 254 mg/dL (60-115)
[2023-12-11] MEDS: Metoprolol Tartrate 25 MG TABLET PO ×2 (08:45→21:01)
[2023-12-11] MEDS: Sertraline HCL 50 MG TABLET PO (08:45)
[2023-12-11] MEDS: Ferrous Sulfate 324 MG TABLET.DR PO (08:45)
[2023-12-11] MEDS: Omeprazole 20 MG CAPSULE.DR PO (08:45)
[2023-12-11] MEDS: cloZAPine 100 MG TABLET PO (08:45)
[2023-12-11] MEDS: cloZAPine 25 MG TABLET PO (08:45)
[2023-12-11] MEDS: lisinopriL 10 MG TABLET PO (08:45)
[2023-12-11] MEDS: Perphenazine 4 MG TABLET PO ×2 (08:45→21:01)
[2023-12-11] MEDS: metFORMIN HCl ER 500 MG TAB.ER.24H 1000 MG PO ×2 (08:45→21:01)
[2023-12-11] MEDS: Sennosides/Docusate Sodium TABLET 1 TAB PO (08:45)
[2023-12-11] MEDS: Insulin Lispro 100 UNIT/ML 3 ML VIAL SUBCUT ×4 (09:41→21:06)
--- NOTE | 2023-12-11 11:18 | P.EN_ITS ---
Event Note Date of Service: 12/11/23 Event Note: Patient is a 47-year-old female admitted to [facility] psychiatry unit seen for follow- up for hyperglycemia. Blood sugars continued to be elevated as high as 305. Will change bedtime Lantus to 15 units. Time Spent With Patient Time: Total time managing care of this patient today ____ minutes.
[2023-12-11 13:17] LABS: Glucose, Whole Blood 283 mg/dL (60-115)
--- NOTE | 2023-12-11 15:22 | HO.PSYCHPN ---
Subjective Subjective Date of Service: 12/11/23 Reason For Visit: crisis Interim History: calm, cooperative. remains improved in mood and Sx, still planning to D/C saturday. per staff, dep 3-4, anx 2. attended 1 group. POC QID. 315, 268, 305. slept about 7 hours. Mental Status Exam Mental Status Exam Narrative: Pt is alert and oriented; slight PMR; dressed in hospital attire; mood is described as good ; eye contact appropriate; Speech is normal rate, volume and not pressured; thought process is organized; Thought content is on tx; no SI/HI/AVH expressed. Diagnostics Vital Signs (24Hr): Vital Signs - 24 hr 12/10/23 20:20 12/10/23 22:51 12/11/23 08:12 Temperature 97.3 F 97.4 F Pulse Rate 106 H 97 91 Respiratory Rate 18 16 18 Blood Pressure 163/73 H 107/53 L 120/66 Pulse Oximetry 99 98 Oxygen Delivery Method Room Air Room Air BMI result Body Mass Index 43.8 Labs 12/03/23 19:56 12/10/23 08:37 Labs: Laboratory Results - last 48 hr 12/09/23 12/09/23 12/10/23 17:28 19:58 08:35 Absolute Neuts (auto) Creatinine Estim Creat Clear Calc Estimated GFR POC Glucose 244 H 360 H* 315 H 12/10/23 12/10/23 12/10/23 08:37 12:58 17:45 Absolute Neuts (auto) 5.0 Creatinine 0.78 Estim Creat Clear Calc 110.1 Estimated GFR > 60 POC Glucose 268 H 305 H 12/10/23 12/11/23 12/11/23 19:54 08:36 13:10 Absolute Neuts (auto) Creatinine Estim Creat Clear Calc Estimated GFR POC Glucose 285 H 254 H 283 H Imaging Radiology Impressions: ITS Impressions Chest X-Ray 12/02/23 15:23 IMPRESSION: No acute cardiopulmonary disease. Medications Medications Current Medications Acetaminophen (Acetaminophen 325 Mg Tablet) 650 mg PO Q6H PRN PRN Reason: Headache/Pain Mild Scale (1-3) Al Hydroxide/Mg Hydroxide (Magnesium Hydrox/Alum Hydrox 30 Ml Oral.Susp) 30 ml PO Q6H PRN PRN Reason: Heartburn/Nausea Clozapine (Clozapine 25 Mg Tablet) 25 mg PO DAILY [facility] Last Admin: 12/11/23 08:45 Dose: 25 mg Clozapine (Clozapine 100 Mg Tablet) 100 mg PO DAILY [facility] Last Admin: 12/11/23 08:45 Dose: 100 mg Clozapine (Clozapine 100 Mg Tablet) 300 mg PO BEDTIME [facility] Last Admin: 12/10/23 20:36 Dose: 300 mg Divalproex Sodium (Divalproex Sodium Er 500 Mg Tab.Er.24h) 2,500 mg PO BEDTIME [facility] Last Admin: 12/10/23 20:35 Dose: 2,500 mg Docusate Sodium (Docusate Sodium 100 Mg Capsule) 100 mg PO BID PRN PRN Reason: Constipation Ferrous Sulfate (Ferrous Sulfate 324 Mg Tablet.Dr) 324 mg PO DAILY [facility] Last Admin: 12/11/23 08:45 Dose: 324 mg Hydroxyzine HCl (Hydroxyzine Hcl 25 Mg Tablet) 25 mg PO Q6H PRN PRN Reason: Anxiety Insulin Glargine (Insulin Glargine,Hum.Rec.Anlog 100 Unit/Ml 10 Ml Vial) 15 unit SUBCUT BEDTIME [facility] Insulin Human Lispro (Insulin Lispro 100 Unit/Ml 3 Ml Vial) 0 unit SUBCUT QIDACHS [facility]; Protocol Last Admin: 12/11/23 13:38 Dose: 8 unit Lisinopril (Lisinopril 10 Mg Tablet) 10 mg PO DAILY [facility]; Protocol Last Admin: 12/11/23 08:45 Dose: 10 mg Magnesium Hydroxide (Milk Of Magnesia 30 Ml Oral.Susp) 30 ml PO DAILY PRN PRN Reason: Constipation Metformin HCl (Metformin Hcl Er 500 Mg Tab.Er.24h) 1,000 mg PO BID [facility] Last Admin: 12/11/23 08:45 Dose: 1,000 mg Metoprolol Tartrate (Metoprolol Tartrate 25 Mg Tablet) 25 mg PO BID [facility]; Protocol Last Admin: 12/11/23 08:45 Dose: 25 mg Nicotine (Nicotine 21 Mg Patch.Td24) 21 mg TRANSDERMA DAILY [facility] Last Admin: 12/11/23 08:46 Dose: Not Given Nicotine Polacrilex (Nicotine Polacrilex 2 Mg Gum) 4 mg BUCCAL Q2H PRN PRN Reason: Nicotine Cravings Omeprazole (Omeprazole 20 Mg Capsule.Dr) 20 mg PO DAILY@0630 [facility] Last Admin: 12/11/23 08:45 Dose: 20 mg Perphenazine (Perphenazine 4 Mg Tablet) 4 mg PO BID [facility] Last Admin: 12/11/23 08:45 Dose: 4 mg Senna/Docusate Sodium (Sennosides/Docusate Sodium Tablet) 1 tab PO DAILY [facility] Last Admin: 12/11/23 08:45 Dose: 1 tab Sertraline HCl (Sertraline Hcl 50 Mg Tablet) 50 mg PO DAILY [facility] Last Admin: 12/11/23 08:45 Dose: 50 mg Trazodone HCl (Trazodone Hcl 50 Mg Tablet) 50 mg PO BEDTIME MRX1 PRN PRN Reason: Insomnia Allergies Allergies Allergy/AdvReac Type Severity Reaction Status Date / Time Sulfa (Sulfonamide Allergy Intermediate PUFFY EYES Verified 12/01/23 16:51 Antibiotics) [SULFA (SULFONAMIDE ANTIBIOTICS)] Penicillins [PENICILLINS] Allergy Mild PT STATES Verified 12/01/23 16:51 NOTHING HAPPENS, ALLG LISTED ON TRANF SHEET Assessment & Plan Assessment & Plan (1) Hyperglycemia due to type 2 diabetes mellitus: Status: Acute Code(s): E11.65 - Type 2 diabetes mellitus with hyperglycemia Plan Medical consult obtained for hyperglycemia in a patient with type 2 diabetes mellitus: Diabetes mellitus type 2 with hyperglycemia: Recommend to continue metformin 1000 mg b.i.d. and diabetic diet On Trulicity at home currently on hold Will up titrate insulin sliding scale and add Lantus at bedtime Recommend to resume Trulicity upon discharge Strongly recommend to follow low-calorie diabetic diet that will help to lose weight with underlying history of morbid obesity. Last lab work from December 02 showed normal renal function and electrolytes 12/08: AH continue to gradually improve. sleeping well. continue current mgmt. 12/09: smiley and energetic today. states she is feeling better, tentative DC plan made for saturday. 12/10: gains maintained. planning for saturday discharge. continue current mgmt. Reason for continued inpatient stay Substantial Risk for: inability to function and rapid decompensation Time Spent With Patient Time: Total time managing care of this patient today __25__ minutes.
[2023-12-11 17:42] LABS: Glucose, Whole Blood 249 mg/dL (60-115)
[2023-12-11 20:25] VITALS: BP 130/83; PULSE 100; RESP 18; TEMP 36.3; O2SAT 98
[2023-12-11 20:51] LABS: Glucose, Whole Blood 309 mg/dL (60-115)
[2023-12-11] MEDS: cloZAPine 100 MG TABLET 300 MG PO (21:01)
[2023-12-11] MEDS: Divalproex Sodium ER 500 MG TAB.ER.24H 2500 MG PO (21:01)
[2023-12-11] MEDS: Insulin Glargine,Hum.rec.anlog 100 UNIT/ML 10 ML VIAL 15 UNIT SUBCUT (21:07)
[2023-12-12] MEDS: Omeprazole 20 MG CAPSULE.DR PO (06:29)
[2023-12-12 07:00] VITALS: BMI 44.0
[2023-12-12 08:00] VITALS: BP 135/69; PULSE 94; RESP 16; TEMP 36.9; O2SAT 99
[2023-12-12 08:49] LABS: Glucose, Whole Blood 337 mg/dL (60-115)
[2023-12-12] MEDS: cloZAPine 100 MG TABLET PO (08:59)
[2023-12-12] MEDS: Perphenazine 4 MG TABLET PO ×2 (08:59→20:59)
[2023-12-12] MEDS: cloZAPine 25 MG TABLET PO (08:59)
[2023-12-12] MEDS: Sennosides/Docusate Sodium TABLET 1 TAB PO (08:59)
[2023-12-12] MEDS: Metoprolol Tartrate 25 MG TABLET PO ×2 (08:59→21:00)
[2023-12-12] MEDS: Ferrous Sulfate 324 MG TABLET.DR PO (08:59)
[2023-12-12] MEDS: Sertraline HCL 50 MG TABLET PO (08:59)
[2023-12-12] MEDS: metFORMIN HCl ER 500 MG TAB.ER.24H 1000 MG PO ×2 (08:59→21:00)
[2023-12-12] MEDS: lisinopriL 10 MG TABLET PO (08:59)
[2023-12-12] MEDS: Insulin Lispro 100 UNIT/ML 3 ML VIAL SUBCUT ×4 (09:05→21:02)
--- NOTE | 2023-12-12 11:36 | PM.PSYDC ---
DS: Providers Provider Date of Service: 12/12/23 Date of admission: 12/02/23 17:05 Primary care physician: Jd Guevara MD Consults: 12/09/23 09:59 Consult to Hospitalist Routine Comment: Consulting Provider: Hospitalist Reason For Exam: DM mgmt DS: Diagnosis Discharge Diagnosis (1) Hyperglycemia due to type 2 diabetes mellitus: Status: Acute (2) Schizophrenia: Status: Acute DS: Medications Discharge Medications Home Medications: Home Medications ?Medication ?Instructions ?Recorded ?Confirmed dulaglutide 1.5 mg/0.5 mL 0.5 ml subcut WE@0900 03/07/22 12/01/23 subcutaneous pen injector (Trulicity) ferrous sulfate 325 mg (65 mg 325 mg PO DAILY 03/07/22 12/01/23 iron) tablet metoprolol tartrate 25 mg tablet 1 tab PO BID 03/07/22 12/01/23 omeprazole 20 mg capsule,delayed 1 cap PO DAILY@0630 03/07/22 12/01/23 release docusate sodium 100 mg capsule 100 mg PO BID PRN Constipation 04/21/22 12/01/23 (Colace) sennosides 8.6 mg-docusate sodium 1 tab PO DAILY 01/22/23 12/01/23 50 mg tablet (Senna Plus) clozapine 100 mg tablet 100 mg PO QAM 12/01/23 12/01/23 clozapine 100 mg tablet 300 mg PO BEDTIME 12/01/23 12/01/23 clozapine 25 mg tablet 25 mg PO QAM 12/01/23 12/01/23 divalproex 500 mg tablet,extended 2,500 mg PO BEDTIME 12/01/23 12/01/23 release 24 hr lisinopril 10 mg tablet 10 mg PO DAILY 12/01/23 12/01/23 metformin 500 mg tablet,extended 1,000 mg PO BID 12/01/23 12/01/23 release 24 hr perphenazine 4 mg tablet 4 mg PO BID 12/01/23 12/01/23 sertraline 50 mg tablet 50 mg PO DAILY 12/01/23 12/01/23 Previous Rx's ?Medication ?Instructions ?Recorded [id number] 5 10 ml PO Q4H PRN cough #237 mL 06/22/22 mg-10 mg-100 mg/5 mL oral liquid (Adult Robitussin Peak Cold M-S) Mental Status Exam Mental Status Exam Narrative: Pt is alert and oriented; no PMA/PMR; dressed in hospital attire; mood is described as anxious; eye contact appropriate; Speech is normal rate, volume and not pressured; affect is full-range, normo-intense, non-labile; thought process is organized; Thought content is on tx; no SI/HI/AVH. Data Data Completed and Pending Completed studies during hospitalization [Text1]: 12/03/23 12/05/23 12/05/23 19:56 11:50 17:35 Absolute Neuts (auto) Creatinine Estim Creat Clear Calc Estimated GFR POC Glucose 241 H 224 H Clozapine 297 Norclozapine 83 12/05/23 12/06/23 12/06/23 21:28 08:29 13:03 Absolute Neuts (auto) Creatinine Estim Creat Clear Calc Estimated GFR POC Glucose 286 H 267 H 231 H Clozapine Norclozapine 12/06/23 12/06/23 12/07/23 17:41 21:26 08:18 Absolute Neuts (auto) Creatinine Estim Creat Clear Calc Estimated GFR POC Glucose 274 H 295 H 278 H Clozapine Norclozapine 12/07/23 12/07/23 12/07/23 12:18 18:00 20:38 Absolute Neuts (auto) Creatinine Estim Creat Clear Calc Estimated GFR POC Glucose 258 H 227 H 302 H Clozapine Norclozapine 12/08/23 12/08/23 12/08/23 08:39 12:30 17:46 Absolute Neuts (auto) Creatinine Estim Creat Clear Calc Estimated GFR POC Glucose 327 H 298 H 252 H Clozapine Norclozapine 12/08/23 12/09/23 12/09/23 20:12 08:49 12:51 Absolute Neuts (auto) Creatinine Estim Creat Clear Calc Estimated GFR POC Glucose 267 H 251 H 310 H Clozapine Norclozapine 12/09/23 12/09/23 12/10/23 17:28 19:58 08:35 Absolute Neuts (auto) Creatinine Estim Creat Clear Calc Estimated GFR POC Glucose 244 H 360 H* 315 H Clozapine Norclozapine 12/10/23 12/10/23 12/10/23 08:37 12:58 17:45 Absolute Neuts (auto) 5.0 Creatinine 0.78 Estim Creat Clear Calc 110.1 Estimated GFR > 60 POC Glucose 268 H 305 H Clozapine Norclozapine 12/10/23 12/11/23 12/11/23 19:54 08:36 13:10 Absolute Neuts (auto) Creatinine Estim Creat Clear Calc Estimated GFR POC Glucose 285 H 254 H 283 H Clozapine Norclozapine 12/11/23 12/11/23 12/12/23 17:36 20:47 08:36 Absolute Neuts (auto) Creatinine Estim Creat Clear Calc Estimated GFR POC Glucose 249 H 309 H 337 H Clozapine Norclozapine Imaging Diagnostic Imaging Impressions Chest X-Ray 12/02/23 15:23 IMPRESSION: No acute cardiopulmonary disease. DS: Summary Hospital Course Hospital Course: per 12/02 admission note: Patient is a 47 year old female with hx of Schizophrenia who presented to [facility] via ambulance from groups home d/t command auditory hallucinations telling her to cut her wrists. Per crisis report, pt has been experiencing command AH for the past month to harm herself but was trying to manage in the [facility]. Pt reports AH at baseline, however occasionally they become more distressing and tell her to harm herself. Pt does not have a hx of SA/SIB. During admission assessment, pt presents alert, oriented, calm, cooperative. Pt stated she didn't want to talk long because I'm tired . Pt reports feeling depressed and suicidal ; pt stated, I've been feeling this way because the people at the [facility] are mean to me about my vibes. They say mean things so it made me depressed and suicidal . Pt reports suicidal ideation with plan to cut my wrists or take pills ; she reports auditory hallucinations that tell me to harm myself . Pt denies HI/VH. Pt reports being medication compliant. She reports sleeping well and eating well. Past Psychiatric History: Inpatient: multiple, last admission in 2022. Outpatient psychiatrist: Dr. Kitchen Pt reports she does not have a therapist. no hx of detox or PHP. Past trials: clozaril, perphenazine, depakote Medical Evaluation Reviewed: Yes [facility] Medical History Diabetes Gram-positive bacteremia HTN (hypertension) Family History: denies Social History: Lives in [facility]. No children, not . Sister was guardian until 2020. raised by parents until 7 yo when parents . 1 sister. Substance History: denies Trauma History: denies Precis: Medical consult obtained for hyperglycemia in a patient with type 2 diabetes mellitus: Diabetes mellitus type 2 with hyperglycemia: Recommend to continue metformin 1000 mg b.i.d. and diabetic diet On Trulicity at home currently on hold Will up titrate insulin sliding scale and add Lantus at bedtime Recommend to resume Trulicity upon discharge Strongly recommend to follow low-calorie diabetic diet that will help to lose weight with underlying history of morbid obesity. Last lab work from December 02 showed normal renal function and electrolytes Patient is a 47 year old female with hx of Schizophrenia who presented to [facility] via ambulance from groups home d/t command auditory hallucinations telling her to cut her wrists. 12/02: CV. 15 minute safety checks. continue home mediations. obtain collateral. encourage groups. discharge planning. 12/03: Keeping to self. Laying in bed most of shift. Pt reports feeling tired from the symptoms ; pt stated, I'm okay but I'm still feeling anxious and depressed. The voices keep telling me I'm ugly. It makes me have thoughts of hurting myself . Pt denies HI/VH. Pt encouraged to attend groups. Continue current tx plan. 12/04: Showered. Pt reports she is starting to feel better ; pt stated, the voices are getting mild now. They quieted down . Pt denies SI/HI/VH. Keeping to self. encouraged to attend groups. Continue current tx plan. 12/05: reports improved AH, no CAH. just derogatory. continue current mgmt. 12/08/2023: No changes 12/08: AH continue to gradually improve. sleeping well. continue current mgmt. 12/09: smiley and energetic today. states she is feeling better, tentative DC plan made for saturday. 12/10: gains maintained. planning for saturday discharge. continue current mgmt. 12/11: stable, no change in mgmt. 12/12: stable. discharged as per plan. Time Spent with Patient Time attestation: Total time managing care of this patient today __35__ minutes. Discharge Plan Discharge Anticipated Discharge Date/Time: 12/13/23 12:00 Patient Disposition: Home, Self-Care Discharge Diagnosis: Schizophrenia Diabetes Mellitus Referrals: [facility] [Other] - 01/08/24 2:00 pm (IN OFFICE) Jd Cordova MD [Primary Care Provider] - 01/06/24 9:30 am (Your follow up appointment with Dr. Jd Guevara MD has been scheduled for 01-06-24 @ 9:30am. PCP Fax tn [phone] Attn Bárbara for discharge summary) Discharge Medications: Continued docusate sodium [Colace] 100 mg Capsule 100 mg PO BID PRN (Reason: Constipation) Adult Robitussin Peak Cold M-S 5-10-100 mg/5 mL liquid 10 ml PO Q4H PRN (Reason: cough) Qty: 237 0RF ferrous sulfate 325 mg (65 mg iron) Tablet 325 mg PO DAILY omeprazole 20 mg capsule,delayed release(DR/EC) 1 cap PO DAILY@0630 metoprolol tartrate 25 mg tablet 1 tab PO BID Trulicity 1.5 mg/0.5 mL pen injector 0.5 ml subcut WE@0900 lisinopril 10 mg tablet 10 mg PO DAILY divalproex 500 mg tablet extended release 24 hr 2,500 mg PO BEDTIME perphenazine 4 mg tablet 4 mg PO BID metformin 500 mg tablet extended release 24 hr 1,000 mg PO BID sertraline 50 mg tablet 50 mg PO DAILY clozapine 100 mg tablet 100 mg PO QAM Patient Comments: Confirmed by Luisito med higher education administrator [facility] [phone] clozapine 100 mg tablet 300 mg PO BEDTIME Patient Comments: Confirmed by Luisito med higher education administrator [facility] [phone] clozapine 25 mg tablet 25 mg PO QAM Rx Instructions: Confirmed by Luisito med higher education administrator [facility] [phone] sennosides-docusate sodium [Senna Plus] 8.6-50 mg tablet 1 tab PO DAILY Discharge Orders: Discharge Order (Routine); Ordered 12/13/23 Ordered By: Israel Dickerson Diet: Diabetic diet Activity on Discharge: As tolerated Stand Alone Forms: Patient Portal Discharge page, Community Support Print Language: Thai Care Plan Goals: remain safe and stable in the outpatient treatment setting Health Concerns: Diabetes Mellitus Plan of Treatment: take medications as prescribed, attend appointments as scheduled Assessment: not at imminent risk of harm to self or others Discharge Date/Time: 12/13/23 10:30
[2023-12-12 12:48] LABS: Glucose, Whole Blood 333 mg/dL (60-115)
[2023-12-12 17:49] LABS: Glucose, Whole Blood 294 mg/dL (60-115)
[2023-12-12 19:52] LABS: Glucose, Whole Blood 324 mg/dL (60-115)
[2023-12-12 20:00] VITALS: BP 122/59; PULSE 105; RESP 18; TEMP 36.3; O2SAT 97
[2023-12-12] MEDS: Divalproex Sodium ER 500 MG TAB.ER.24H 2500 MG PO (20:58)
[2023-12-12] MEDS: cloZAPine 100 MG TABLET 300 MG PO (20:59)
[2023-12-12 21:00] VITALS: BP 122/59; PULSE 105
[2023-12-12] MEDS: Insulin Glargine,Hum.rec.anlog 100 UNIT/ML 10 ML VIAL 20 UNIT SUBCUT (21:01)
[2023-12-13] MEDS: Omeprazole 20 MG CAPSULE.DR PO (06:43)
[2023-12-13 07:35] VITALS: BP 116/64; PULSE 89; RESP 14; TEMP 36.2; O2SAT 100
[2023-12-13 09:36] LABS: Glucose, Whole Blood 233 mg/dL (60-115)
[2023-12-13] MEDS: Ferrous Sulfate 324 MG TABLET.DR PO (09:48)
[2023-12-13 09:49] VITALS: BP 114/64
[2023-12-13] MEDS: lisinopriL 10 MG TABLET PO (09:49)
[2023-12-13] MEDS: cloZAPine 100 MG TABLET PO (09:50)
[2023-12-13] MEDS: Sertraline HCL 50 MG TABLET PO (09:50)
[2023-12-13 09:51] VITALS: BP 116/64; PULSE 89
[2023-12-13] MEDS: Metoprolol Tartrate 25 MG TABLET PO (09:51)
[2023-12-13] MEDS: metFORMIN HCl ER 500 MG TAB.ER.24H 1000 MG PO (09:51)
[2023-12-13] MEDS: Sennosides/Docusate Sodium TABLET 1 TAB PO (09:51)
[2023-12-13] MEDS: Perphenazine 4 MG TABLET PO (09:52)
[2023-12-13] MEDS: cloZAPine 25 MG TABLET PO (09:52)
[2023-12-13] MEDS: Insulin Lispro 100 UNIT/ML 3 ML VIAL SUBCUT (09:53)
== END 2023-12-13 10:30 | disposition home or self-care (01) | DRG 750 ==
LOC: HO.ED 18:52 → HO.PADLT16 12-02 18:15
PROVIDERS: Clinical Nurse Specialist Psychiatric/Mental Health, Adult; Physician Assistant; Psychiatry & Neurology Psychiatry; Admitting Provider Registered Nurse; Emergency Provider Internal Medicine; PCP Internal Medicine; Visit Provider Psychiatry & Neurology Psychiatry
DX: F20.9 Schizophrenia, unspecified (principal); R45.851 Suicidal ideations; E11.65 Type 2 diabetes mellitus with hyperglycemia; I10 Essential (primary) hypertension; F17.210 Nicotine dependence, cigarettes, uncomplicated; E66.01 Morbid (severe) obesity due to excess calories; Z68.41 Body mass index [BMI] 40.0-44.9, adult; Z71.6 Tobacco abuse counseling; Z20.822 Contact with and (suspected) exposure to COVID-19; Z79.84 Long term (current) use of oral hypoglycemic drugs; Z79.85 Long-term (current) use of injectable non-insulin antidiabetic drugs; Z79.899 Other long term (current) drug therapy
CPT/HCPCS: 36415; 71045; 80048; 80053; 80061; 80076; 80159; 80164; 80179; 80307; 81003; 81025; 82140; 82565; 82947; 84443; 85025; 85048; 87635; 93005; 99285; S9485

== ENCOUNTER → 2023-12-02 10:23 | Outpatient (BNV) | payer MEDICAID, SELFPAY | PROVIDERS: Emergency Provider Internal Medicine; PCP Internal Medicine; Visit Provider Internal Medicine Cardiovascular Disease | DX: I45.81 Long QT syndrome (principal) | CPT/HCPCS: 93010 ==

== ENCOUNTER → 2023-12-02 17:05 | Outpatient (BNV) | payer MEDICAID, SELFPAY | PROVIDERS: Admitting Provider Registered Nurse; Emergency Provider Internal Medicine; PCP Internal Medicine; Visit Provider Hospitalist | DX: E11.65 Type 2 diabetes mellitus with hyperglycemia (principal) | CPT/HCPCS: 99232; 99499 ==

== ENCOUNTER → 2023-12-02 17:05 | Outpatient (BNV) | payer OTHER, SELFPAY | PROVIDERS: Admitting Provider Registered Nurse; Emergency Provider Internal Medicine; PCP Internal Medicine; Responsible Provider Registered Nurse; Visit Provider Registered Nurse | DX: F20.0 Paranoid schizophrenia (principal); E11.65 Type 2 diabetes mellitus with hyperglycemia | CPT/HCPCS: 99231; 99232; 99233 ==

== ENCOUNTER → 2024-06-09 08:33 | Outpatient (BNV) | payer MEDICAID, SELFPAY | PROVIDERS: Admitting Provider Registered Nurse; Emergency Provider Emergency Medicine Emergency Medical Services; PCP Internal Medicine; Visit Provider Internal Medicine Cardiovascular Disease | DX: R94.31 Abnormal electrocardiogram [ECG] [EKG] (principal) | CPT/HCPCS: 93010 ==

== ENCOUNTER → 2024-06-09 18:02 | Outpatient (BNV) | payer OTHER, SELFPAY | PROVIDERS: Admitting Provider Registered Nurse; Emergency Provider Emergency Medicine Emergency Medical Services; PCP Internal Medicine; Responsible Provider Registered Nurse; Visit Provider Psychiatry & Neurology Psychiatry | DX: F20.0 Paranoid schizophrenia (principal) | CPT/HCPCS: 99231; 99232; 99233 ==

== ENCOUNTER 2024-09-12 15:18 | Emergency (ER) | payer OTHER, SELFPAY ==
[2024-09-12 15:29] VITALS: BP 110/62; PULSE 100; O2SAT 94; BMI 47.1
--- NOTE | 2024-09-12 16:13 | ED.PSYCH ---
HPI - Psych General Chief Complaint: Psychiatric Symptoms Stated Complaint: SI Time Seen by Provider: 09/12/24 15:38 Source: patient and EMS Mode of arrival: EMS Limitations: no limitations History of Present Illness ED Provider: Kylee Chopra NP HPI Narrative: Patient is a 48-year-old female who presents emergency department via EMS coming from a [facility]dc with reports of suicidal ideations over the past week, does not endorse a specific plan, admits to having auditory hallucinations? the voices are just breaking me down I am scared and I do not feel safe?. By her account she does not recall if she has had any recent medication changes but states she has been compliant with her medication. Denies homicidal ideations. Denies recreational drug or alcohol usage. Related Data Home Medications ?Medication ?Instructions ?Recorded ?Confirmed ferrous sulfate 325 mg (65 mg 325 mg PO DAILY 03/07/22 09/12/24 iron) tablet metoprolol tartrate 25 mg tablet 1 tab PO BID 03/07/22 09/12/24 omeprazole 20 mg capsule,delayed 1 cap PO DAILY@0630 03/07/22 09/12/24 release docusate sodium 100 mg capsule 100 mg PO BID Constipation 04/21/22 09/12/24 (Colace) clozapine 100 mg tablet 100 mg PO QAM 12/01/23 09/12/24 clozapine 100 mg tablet 300 mg PO BEDTIME 12/01/23 09/12/24 clozapine 25 mg tablet 25 mg PO QAM 12/01/23 09/12/24 divalproex 500 mg tablet,extended 2,500 mg PO BEDTIME 12/01/23 09/12/24 release 24 hr lisinopril 10 mg tablet 10 mg PO DAILY 12/01/23 09/12/24 perphenazine 4 mg tablet 4 mg PO BID 12/01/23 09/12/24 sertraline 50 mg tablet 50 mg PO DAILY 12/01/23 09/12/24 sennosides 8.6 mg tablet (senna) 8.6 mg PO DAILY 06/08/24 09/12/24 dulaglutide 3 mg/0.5 mL 1.5 mg subcut WE 06/10/24 09/12/24 subcutaneous pen injector (Trulicity) guaifenesin 10 ml PO Q4H PRN Cough 09/12/24 09/12/24 Previous Rx's ?Medication ?Instructions ?Recorded insulin glargine 100 unit/mL 70 unit (0.7 mL) subcut BEDTIME #0 06/17/24 subcutaneous solution (Lantus mL U-100 Insulin) Allergies Allergy/AdvReac Type Severity Reaction Status Date / Time Sulfa (Sulfonamide Allergy Intermediate PUFFY EYES Verified 09/12/24 15:32 Antibiotics) [SULFA (SULFONAMIDE ANTIBIOTICS)] Penicillins [PENICILLINS] Allergy Mild PT STATES Verified 09/12/24 15:32 NOTHING HAPPENS, ALLG LISTED ON TRANF SHEET Review of Systems Review of Systems: Yes all other systems are reviewed and are negative PMFSH Past Medical History Attestation statement: The following information was validated with the patient. Source: old records reviewed Medical History Acute psychosis Gram-positive bacteremia HTN (hypertension) Diabetes Social History Social History Household Members: Other Household Members Other:: fdc Housing: Other Housing Other:: fdc Do you presently have visiting nurse or other home services: No Alcohol intake: never Patient Tobacco Use Status: Current everyday Tobacco user Tobacco use type: Cigarette Cigarette Packs Per Day: 0.5 Cigarettes Per Day: 10.0 Years Smoked: 36 Smoked in Last 30 Days: Yes e-Cigarette/Vaping Use: Never Used Second Hand Smoke Exposure: Yes Use of substances other than those prescribed or required for medical reasons: No Advance Directives: No Advance Directives Information Provided: No Do you have a plan to hurt others: No Plan Patient : No service: No Current occupational status: disabled Sexual orientation: Unable to collect Physical Exam Vital Signs: Vital Signs: Last Vital Signs Temp 97.9 F 09/13/24 08:39 Pulse 79 09/13/24 09:00 Resp 16 09/13/24 08:39 BP 122/58 L 09/13/24 09:00 Pulse Ox 95 09/13/24 08:39 O2 Del Method Room Air 09/13/24 08:39 BMI result Body Mass Index 47.1 Appearance: Alert.?Oriented to person, place and time. No acute distress.?Normal affect. Eyes: Pupils equal, round and reactive to light.? ENT: Pharynx normal.?? Neck: Normal inspection.? Neck supple.?? CVS: Heart sounds normal. Normal heart rate and rhythm.? Pulses normal.?? Respiratory: No respiratory distress.? Lung sounds clear to auscultation bilaterally?? Abdomen: Soft and non-tender. Normoactive bowel sounds. Skin: Skin warm and dry.? Normal skin color.? Extremities: No lower extremity edema.? Neuro: Moves all extremities spontaneously. Sensation intact bilaterally. CN II-XII intact. No focal neuro deficits. Ambulates with normal steady gait. Course Reevaluation(s) Reevaluation #1: Patient signed out to Marilu Keller [employer] pending labs / CARE team eval Time: 17:55 Reevaluation #2: Care team input is appreciated, VSS, no SI, no HI, patient will be discharged to fdc will can be monitored and observed. Will discharge back to the fdc. Time: 12:14 Medications Administered Generic Name Dose Route Start Last Admin Trade Name Freq PRN Reason Stop Dose Admin Clozapine 25 mg 09/13/24 09:00 09/13/24 09:52 Clozapine 25 Mg Tablet PO 25 mg DAILY CARLEEN Administration Clozapine 100 mg 09/13/24 09:00 09/13/24 08:59 Clozapine 100 Mg Tablet PO 100 mg DAILY CARLEEN Administration Clozapine 300 mg 09/12/24 21:45 09/12/24 23:17 Clozapine 100 Mg Tablet PO 300 mg BEDTIME CARLEEN Administration Divalproex Sodium 2,500 mg 09/12/24 21:45 09/12/24 23:17 Divalproex Sodium Er 500 Mg Tab.Er.24h PO 2,500 mg BEDTIME CARLEEN Administration Docusate Sodium 100 mg 09/12/24 21:45 09/13/24 09:01 Docusate Sodium 100 Mg Capsule PO 100 mg BID CARLEEN Administration Ferrous Sulfate 324 mg 09/13/24 09:00 09/13/24 09:01 Ferrous Sulfate 324 Mg Tablet. PO 324 mg DAILY CARLEEN Administration Insulin Glargine 70 unit 09/12/24 21:45 09/12/24 23:20 Insulin Glargine,Hum.Rec.Anlog 100 Unit/Ml 10 Ml Vial SUBCUT 70 unit BEDTIME CARLEEN Administration Lisinopril 10 mg 09/13/24 09:00 09/13/24 09:00 Lisinopril 10 Mg Tablet PO 10 mg DAILY CARLEEN Administration Protocol Metoprolol Tartrate 25 mg 09/12/24 21:45 09/13/24 09:00 Metoprolol Tartrate 25 Mg Tablet PO 25 mg BID CARLEEN Administration Protocol Omeprazole 20 mg 09/13/24 06:30 09/13/24 09:00 Omeprazole 20 Mg Capsule. PO 20 mg DAILY@0630 CARLEEN Administration Perphenazine 4 mg 09/12/24 21:45 09/13/24 09:52 Perphenazine 4 Mg Tablet PO 4 mg BID CARLEEN Administration Senna 8.6 mg 09/13/24 09:00 09/13/24 09:00 Sennosides 8.6 Mg Tablet PO 8.6 mg DAILY CARLEEN Administration Sertraline HCl 50 mg 09/13/24 09:00 09/13/24 09:01 Sertraline Hcl 50 Mg Tablet PO 50 mg DAILY CARLEEN Administration Medical Decision Making Medical Decision Making [facility] Narrative: Patient is a 48-year-old female with past medical history of hypertension, diabetes, schizophrenia who reports emergency department for evaluation homicidal ideations no specific plan as well as auditory hallucinations as per HPI. He is calm and cooperative. Offers no physical complaints in her physical examination is benign. Will obtain serum labs for medical clearance in addition to toxicology testing and refer to care team for safe disposition planning. Differential Diagnosis Differential Diagnoses: The differential diagnosis associated with the presentation includes (See narrative above and below for further detail) Admission/Observation Consideration of admission/observation: Escalation of care including admission/observation considered Patient is being observed in the Emergency Department for auditory hallucination and suicidal ideation. Observation time was started at 17:00 on 09/12/2024.?The patient is currently stable and non-toxic appearing. Observation is being initiated in the Emergency Department to allow time to help differentiate if the patient's hallucinations and suicidal ideation is due to Substance Induced Mood Disorder and Anxiety versus Major Depressive Disorder, Bipolar Ronda, Bipolar Depression, and Schizophrenia. The patient will receive frequent psychiatric assessments from the provider as well as from nursing staff. The patient will also be monitored for the need of PRN agitation medications such as Haldol, Ativan, and Benadryl. Consult Healthcare Provider Management of the patient was discussed with: Behavioral Health Provider (CARE team) Lab Data 09/12/24 17:22 09/12/24 17:22 Labs: Lab Results 09/12/24 09/12/24 Range/Units 17:22 23:10 WBC 11.6 H (4.8-10.8) X10*3/uL RBC 4.13 L (4.20-5.50) X10*6/uL Hgb 11.4 L (12.0-16.0) g/dl Hct 35.9 L (37.0-47.0) % MCV 86.9 (80.0-98.0) fL MCH 27.6 (27.0-33.0) pg MCHC 31.8 (31.0-35.0) g/dl RDW 14.4 (11.0-16.0) % Plt Count 279 (160-400) X10*3/uL MPV 9.6 (9.4-12.3) fL Immature Gran % (Auto) 0.6 H (0.0-0.4) % Neut % (Auto) 59.1 (45-73) % Lymph % (Auto) 32.7 (20-40) % [place] % (Auto) 6.3 (2-11) % Eos % (Auto) 1.0 (0-4) % Baso % (Auto) 0.3 (0-2) % Lymph # (Auto) 3.8 (1.2-4.9) X10*3/uL [place] # (Auto) 0.7 (0.1-1.2) X10*3/uL Eos # (Auto) 0.1 (0.0-0.4) X10*3/uL Baso # (Auto) 0.0 (0.0-0.2) X10*3/uL Abs Immat Gran (auto) 0.07 H (0.00-0.03) X10*3/uL Absolute Neuts (auto) 6.9 (2.0-8.3) x10*3/uL Absolute Nucleated RBC 0.000 (0.0-0.012) X10*3/uL Nucleated RBC % (auto) 0.0 (0.0-0.2) /100WBC Sodium 141 (135-145) mmol/L Potassium 4.4 (3.3-5.1) mmol/L Chloride 110 H (96-108) mmol/L Carbon Dioxide 24 (22-29) mmol/L Anion Gap 11 L (12-20) BUN 10 (9-16) mg/dL Creatinine 0.65 (0.5-1.4) mg/dL Estim Creat Clear Calc 131.7 Estimated GFR > 60 POC Glucose 131 H (60-115) mg/dL Random Glucose 120 H (60-115) mg/dL Calcium 8.6 (8.4-10.2) mg/dL Total Bilirubin 0.1 (0.0-1.0) mg/dL AST 27 (5-31) U/L ALT 26 (0-31) U/L Alkaline Phosphatase 54 (39-117) U/L Total Protein 5.7 L (6.5-8.0) g/dL Albumin 3.4 L (3.5-5.0) g/dL Salicylates < 5.0 L (15-30) mg/dL Acetaminophen < 3 (<30) mcg/mL Ethyl Alcohol < 10 mg/dL Discharge Plan Discharge Clinical Impression: Schizophrenia Qualifiers: Schizophrenia type: paranoid schizophrenia Qualified Code(s): F20.0 - Paranoid schizophrenia Patient Disposition: Xfer [facility] Instructions: Schizophrenia (ED) Prescriptions: No Action docusate sodium [Colace] 100 mg Capsule 100 mg PO BID ferrous sulfate 325 mg (65 mg iron) Tablet 325 mg PO DAILY omeprazole 20 mg capsule,delayed release(DR/EC) 1 cap PO DAILY@0630 metoprolol tartrate 25 mg tablet 1 tab PO BID lisinopril 10 mg tablet 10 mg PO DAILY divalproex 500 mg tablet extended release 24 hr 2,500 mg PO BEDTIME perphenazine 4 mg tablet 4 mg PO BID sertraline 50 mg tablet 50 mg PO DAILY clozapine 100 mg tablet 100 mg PO QAM Patient Comments: Confirmed by Luisito med marketing administrator [facility] [phone] clozapine 100 mg tablet 300 mg PO BEDTIME Patient Comments: Confirmed by Luisito med marketing administrator [facility] [phone] clozapine 25 mg tablet 25 mg PO QAM Rx Instructions: Confirmed by Luisito med marketing administrator [facility] [phone] sennosides [senna] 8.6 mg Tablet 8.6 mg PO DAILY Trulicity 3 mg/0.5 mL pen injector 1.5 mg SUBCUT WE insulin glargine [Lantus U-100 Insulin] 100 unit/mL Solution 70 unit subcut BEDTIME Qty: 0 0RF guaifenesin 10 ml PO Q4H PRN (Reason: Cough) Interventions: [place]-Suicide Risk Severity Scale Last Done: 09/12/24 15:46 Print Language: Irish
[2024-09-12 16:38] VITALS: BP 135/71; PULSE 94; RESP 14; TEMP 35.7; O2SAT 99
--- OUTSIDE RECORDS SUMMARY | 2024-09-12 16:50 | XMS_ITS | Encounter Summary ---
Author Organization [employer] Address [address] [place] [id number] Care Team Providers Care Real Estate Assistant Name Role Phone Jd Cordova MD Primary Care Prov ider Encounter Details Date Type Department Care Team (Late Contact Info) Description 02/20/2023 Abstract [facility] [address] [place] [address] Jd Cordova MD [address], [place] [phone] Social History Tobacco Use Types Packs/Day Years Used Date Smoking Tobacco: Former Cigarettes Smokeless Tobacco: Never Comments No Sex and Gender Information Value Date Recorded Sex Assigned at Female 03/19/2022 10:25 AM EDT Legal Sex Female 10:25 AM EDT Gender Identity Female 03/19/2022 10:25 AM EDT Sexual Orientation Choose not to disclose 2021 10:25 AM EDT documented as of this encounter Plan of Treatment Upcoming Encounters Date Type Department Care Team (Late Contact Info) Description 09/28/2024 9:30 AM EDT Telemedicine [facility] [address], [place] [phone] Jd Cordova MD [address], [place] [phone] documented as of this encounter Visit Diagnoses Not on filedocumented in this encounter Care Teams Real Estate Assistant Relationship Specialty Start Date End Date Jd Cordova MD [address], [place] [phone] PCP - General Internal Medicine 06/30/19 documented as of this encounter
--- OUTSIDE RECORDS SUMMARY | 2024-09-12 16:50 | XMS_ITS | Clinical Summary ---
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 Ordering Clinician Indication Dosage Frequency Signature (SIG) Comments Components Lantus Solostar U-100 Insulin 100 unit/mL (3 mL) subcutaneou s pen 2022-05 00:00: 00 06-18 23:59 :00 No [id number] 70 unit NOON 70 unit NOON (route: subcutaneo us) Med Classific ation: Endocrine docusate sodium 100 mg capsule 2022-05 00:00: 00 06-18 23:59 :00 No [id number] 100 capsule 2 TIMES DAILY 100 capsule 2 TIMES DAILY (route: oral) Med Classific ation: Gastroint estinal Therapy Agents senna 8.6 mg tablet 2022-05 00:00: 00 04-22 23:59 :00 No [id number] 8.6 mg DAILY 8.6 mg DAILY (route: oral) Med Classific ation: Gastroint estinal Therapy Agents lisinopril 10 mg tablet 2022-05 00:00: 00 04-29 23:59 :00 No [id number] 10 mg DAILY 10 mg DAILY (route: oral) Med Classific ation: Cardiovas cular Therapy Agents Vitamin C 500 mg tablet 2022-05 00:00: 00 04-22 23:59 :00 No [id number] 500 mg DAILY 500 mg DAILY (route: oral) Med Classific ation: Electroly te Balance-N utritiona l Products FeroSul 325 mg (65 mg iron) tablet 2022-05 00:00: 00 06-18 23:59 :00 No [id number] 325 mg EVERY AM 325 mg EVERY AM (route: oral) Med Classific ation: Electroly te Balance-N utritiona l Products metformin ER 500 mg tablet,exte nded release 24 hr 2022-05 00:00: 00 06-18 23:59 :00 No [id number] 500 mg 2 TIMES DAILY 500 mg 2 TIMES DAILY (route: oral) Med Classific ation: Endocrine clozapine 100 mg tablet 2022-05 00:00: 00 04-25 23:59 :00 No [id number] 100 mg DAILY 100 mg DAILY (route: oral) Med Classific ation: Central Nervous System Agents clozapine 25 mg tablet 2022-05 00:00: 00 06-18 23:59 :00 No [id number] 25 mg BEDTIME 25 mg BEDTIME (route: oral) Med Classific ation: Central Nervous System Agents divalproex ER 500 mg tablet,exte nded release 24 hr 2022-05 00:00: 00 06-18 23:59 :00 No [id number] 500 mg BEDTIME 500 mg BEDTIME (route: oral) Med Classific ation: Central Nervous System Agents metoprolol tartrate 25 mg tablet 2022-05 00:00: 00 06-18 23:59 :00 No [id number] 25 mg 2 TIMES DAILY 25 mg 2 TIMES DAILY (route: oral) Med Classific ation: Cardiovas cular Therapy Agents omeprazole 20 mg capsule,del ayed release 2022-05 00:00: 00 06-18 23:59 :00 No [id number] 20 capsule EVERY AM 20 capsule EVERY AM (route: oral) Med Classific ation: Gastroint estinal Therapy Agents perphenazin e 4 mg tablet 2022-05 00:00: 00 04-22 23:59 :00 No [id number] 4 mg DAILY 4 mg DAILY (route: oral) Med Classific ation: Central Nervous System Agents sertraline 50 mg tablet 2022-05 00:00: 00 06-18 23:59 :00 No [id number] 50 mg EVERY AM 50 mg EVERY AM (route: oral) Med Classific ation: Central Nervous System Agents Trulicity 1.5 mg/0.5 mL subcutaneou s pen injector 2022-05 00:00: 00 06-18 23:59 :00 No [id number] 1.5 mg WEEKLY 1.5 mg WEEKLY (route: subcutaneo us) Med Classific ation: Endocrine lisinopril 2.5 mg tablet 2022-05 00:00: 00 06-18 23:59 :00 No [id number] 2.5 mg EVERY AM 2.5 mg EVERY AM (route: oral) Med Classific ation: Cardiovas cular Therapy Agents Lantus Solostar U-100 Insulin 100 unit/mL (3 mL) subcutaneou s pen 06-20 00:00: 00 Yes [id number] 70 unit DAILY 70 unit DAILY (route: subcutaneo us) Med Classific ation: Endocrine Trulicity 1.5 mg/0.5 mL subcutaneou s pen injector 06-20 00:00: 00 Yes [id number] 1.5 mg WEEKLY 1.5 mg WEEKLY (route: subcutaneo us) Med Classific ation: Endocrine Vital Signs Vital Name Observation Time Observation Value Commen ts Temperature 2024-09-11 14:21:00.000 97.5 [degF] Temperature 2024-09-10 14:41:00.000 97.5 [degF] Temperature 2024-09-09 13:09:00.000 97.5 [degF] Temperature 2024-09-08 12:42:00.000 97.6 [degF] Temperature 2024-09-07 12:48:00.000 97.7 [degF] Temperature 2024-09-06 12:44:00.000 97.5 [degF] Temperature 2024-09-05 09:04:00.000 97.4 [degF] Temperature 2024-09-04 15:03:00.000 97.5 [degF] Temperature 2024-09-03 14:08:00.000 97.5 [degF] Temperature 2024-09-02 13:25:00.000 97.5 [degF] Temperature 2024-09-01 12:29:00.000 98 [degF] Temperature 2024-08-31 13:54:00.000 97.6 [degF] Temperature 2024-08-30 09:32:00.000 97.4 [degF] Temperature 2024-08-29 10:13:00.000 97.5 [degF] Temperature 2024-08-28 14:08:00.000 97.5 [degF] Temperature 2024-08-27 13:05:00.000 97.5 [degF] Temperature 2024-08-26 14:40:00.000 97 [degF] Temperature 2024-08-25 12:49:00.000 98.1 [degF] Temperature 2024-08-24 13:11:00.000 97.5 [degF] Temperature 2024-08-23 09:20:00.000 98.2 [degF] Temperature 2024-08-22 09:16:00.000 97.4 [degF] Temperature 2024-08-21 13:13:00.000 97.4 [degF] Temperature 2024-08-20 12:39:00.000 97.5 [degF] Temperature 2024-08-20 12:21:00.000 97.3 [degF] Plan of Treatment Planned Activity Planned Date Details Comments Future Scheduled Test SKILLED NU RSE TO EVALUATE PATIENT, IDENTIFY PRIMARY AND CO-MORBID CONDITIONS CODED PER CODING GUIDELINES, AND DEVELOP PATIENT SPECIFIC PLAN OF CARE THAT INCLUDES PATIENT GOAL FOR HOME HEALTH. [code = SKILLED NURSE TO EVALUATE PATIENT, IDENTIFY PRIMARY AND CO-MORBID CONDITIONS CODED PER CODING GUIDELINES, AND DEVELOP PATIENT SPECIFIC PLAN OF CARE THAT INCLUDES PATIENT GOAL FOR HOME HEALTH.] Future Scheduled Test SKILLED NU RSE FOR O/A OF ALTERED THOUGHT PROCESS AND/OR DISRUPTION IN COGNITIVE OPERATIONS AND ACTIVITIES [code = SKILLED NURSE FOR O/A OF ALTERED THOUGHT PROCESS AND/OR DISRUPTION IN COGNITIVE OPERATIONS AND ACTIVITIES ] Future Scheduled Test SKILLED NU RSE FOR O/A OF GENERAL HEALTH STATUS OF PAIN, CARDIAC, RESPIRATORY, GASTROINTESTINAL, GENITOURINARY, SKIN, NEUROLOGIC, ENDOCRINE SYSTEMS TO IDENTIFY CHANGES ASSOCIATED WITH EXACERBATION FOR EARLY INTERVENTION OF COMPLICATIONS WEEKLY. [code = SKILLED NURSE FOR O/A OF GENERAL HEALTH STATUS OF PAIN, CARDIAC, RESPIRATORY, GASTROINTESTINAL, GENITOURINARY, SKIN, NEUROLOGIC, ENDOCRINE SYSTEMS TO IDENTIFY CHANGES ASSOCIATED WITH EXACERBATION FOR EARLY INTERVENTION OF COMPLICATIONS WEEKLY.] Future Scheduled Test SKILLED NU RSE TO ADMINISTER MEDICATIONS DAILY OF INSULIN [code = SKILLED NURSE TO ADMINISTER MEDICATIONS DAILY OF INSULIN ] Future Scheduled Test SKILLED NU RSE FOR O/A AND SKILLED TEACHING RELATED TO MANAGEMENT OF DEPRESSIVE SYMPTOMS AND/OR DEPRESSION. SN TO REPORT SIGNIFICANT CHANGE IN DEPRESSIVE SYMPTOMS TO CLINICAL PROVIDER FOR EARLY INTERVENTION. [code = SKILLED NURSE FOR O/A AND SKILLED TEACHING RELATED TO MANAGEMENT OF DEPRESSIVE SYMPTOMS AND/OR DEPRESSION. SN TO REPORT SIGNIFICANT CHANGE IN DEPRESSIVE SYMPTOMS TO CLINICAL PROVIDER FOR EARLY INTERVENTION.] Future Scheduled Test SKILLED NU RSE TO PERFORM HOME SAFETY AND FALL ASSESSMENT AND PROVIDE INSTRUCTION TO IMPLEMENT HOME SAFETY AND FALL PREVENTION STRATEGIES. [code = SKILLED NURSE TO PERFORM HOME SAFETY AND FALL ASSESSMENT AND PROVIDE INSTRUCTION TO IMPLEMENT HOME SAFETY AND FALL PREVENTION STRATEGIES.] Future Scheduled Test PATIENT PETERSON S A RISK OF HOSPITALIZATION AND ED USE. SKILLED NURSE TO ESTABLISH SUPPORT MEASURES TO MINIMIZE RISK OF HOSPITALIZATION AND ED USE, AND INSTRUCT PATIENT/CAREGIVER ON METHODS TO REDUCE AVOIDABLE HOSPITALIZATION AND ED USE. [code = PATIENT HAS A RISK OF HOSPITALIZATION AND ED USE. SKILLED NURSE TO ESTABLISH SUPPORT MEASURES TO MINIMIZE RISK OF HOSPITALIZATION AND ED USE, AND INSTRUCT PATIENT/CAREGIVER ON METHODS TO REDUCE AVOIDABLE HOSPITALIZATION AND ED USE.] Future Scheduled Test SKILLED NU RSE TO REVIEW PATIENT MEDICATIONS. INSTRUCT PATIENT/CAREGIVER ON MONITORING OF EFFECTIVENESS, ADVERSE DRUG REACTIONS, SIDE EFFECTS OF ALL MEDICATIONS (PRESCRIPTION/-OTC), AND HOW AND WHEN TO REPORT PROBLEMS. [code = SKILLED NURSE TO REVIEW PATIENT MEDICATIONS. INSTRUCT PATIENT/CAREGIVER ON MONITORING OF EFFECTIVENESS, ADVERSE DRUG REACTIONS, SIDE EFFECTS OF ALL MEDICATIONS (PRESCRIPTION/-OTC), AND HOW AND WHEN TO REPORT PROBLEMS.] Future Scheduled Test SKILLED NU RSE FOR ADMINISTRATION AND TEACHING OF PRESCRIBED INJECTION THERAPY FOR LANTUS [code = SKILLED NURSE FOR ADMINISTRATION AND TEACHING OF PRESCRIBED INJECTION THERAPY FOR LANTUS ] Future Scheduled Test SKILLED NU RSE FOR O/A OF CLIENT'S SOCIAL ISOLATION AND PROVIDE ASSISTANCE TO CLIENT IN DEVELOPMENT OF PLANNED ACTIVITIES [code = SKILLED NURSE FOR O/A OF CLIENT'S SOCIAL ISOLATION AND PROVIDE ASSISTANCE TO CLIENT IN DEVELOPMENT OF PLANNED ACTIVITIES] Future Scheduled Test SKILLED NU RSE TO ASSESS PATIENTS PSYCHOSOCIAL STATUS TO IDENTIFY POTENTIAL ISSUES THAT MAY COMPLICATE THE PROVISION OF THE PLAN OF CARE INCLUDING THE PATIENTS ABILITY TO ACCESS COMMUNITY RESOURCES AND PSYCHOSOCIAL SUPPORT SERVICES. [code = SKILLED NURSE TO ASSESS PATIENTS PSYCHOSOCIAL STATUS TO IDENTIFY POTENTIAL ISSUES THAT MAY COMPLICATE THE PROVISION OF THE PLAN OF CARE INCLUDING THE PATIENTS ABILITY TO ACCESS COMMUNITY RESOURCES AND PSYCHOSOCIAL SUPPORT SERVICES.] Future Scheduled Test SKILLED NU RSE WILL MAINTAIN SITUATIONAL AWARENESS FOR SAFETY AND WILL NOTIFY CLINICAL SEALING AND CANCELING MACHINE OPERATOR AND PHYSICIAN/PROVIDER WITH ANY CHANGE IN CONDITION. [code = SKILLED NURSE WILL MAINTAIN SITUATIONAL AWARENESS FOR SAFETY AND WILL NOTIFY CLINICAL SEALING AND CANCELING MACHINE OPERATOR AND PHYSICIAN/PROVIDER WITH ANY CHANGE IN CONDITION.] Goal Patient Goal - TAKING MY INS ULIN Goal 2024-08-14 Patient Goal - TAKING MY INS ULIN Goal Provider Goal - A PLAN OF CARE WILL BE ESTABLISHED THAT MEETS PATIENT'S [facility] NEEDS AND INCLUDES PATIENT GOAL FOR HOME HEALTH. Goal Provider Goal - PATIENT WILL BE ABLE TO PERFORM DAILY FUNCTIONS AND HAVE OPTIMAL IMPROVEMENT IN THOUGHT PROCESS THROUGHOUT CERTIFICATION PERIOD. Goal Provider Goal - CHANGE IN GENERAL HEALTH STATUS WILL BE IDENTIFIED AND REPORTED TO PHYSICIAN FOR PROMPT INTERVENTION TO MINIMIZE ASSOCIATED RISKS THROUGHOUT CERTIFICATION PERIOD. Goal Provider Goal - PATIENT WILL COMPLY WITH MEDICATION WHEN SKILLED NURSE ADMINISTERS AND PRE-POURS MEDICATION THROUGHOUT CERTIFICATION PERIOD. Goal Provider Goal - PATIENT WILL REMAIN SAFE WITHOUT DECOMPENSATION IN DEPRESSIVE CONDITION, WHILE MAINTAINING OPTIMAL LEVEL OF MENTAL HEALTH AND WELL BEING THROUGHOUT CERTIFICATION PERIOD. Goal Provider Goal - PATIENT/CAREGIVER WILL VERBALIZE/DEMONSTRATE EFFECTIVE HOME SAFETY AND FALL PREVENTION STRATEGIES THROUGHOUT CERTIFICATION PERIOD. Goal Provider Goal - PATIENT WILL HAVE SUPPORT MEASURES ESTABLISHED TO PREVENT HOSPITALIZATION AND ED USE AND PATIENT/CAREGIVER WILL VERBALIZE/DEMONSTRATE METHODS TO REDUCE AVOIDABLE HOSPITALIZATION AND ED USE BY END OF EPISODE. Goal Provider Goal - PATIENT/CAREGIVER WILL VERBALIZE UNDERSTANDING OF EDUCATION PROVIDED ON MEDICATIONS BY THE END OF THE CERTIFICATION PERIOD. Goal Provider Goal - PATIENT WILL RECEIVE LANTUS ORDERED. PATIENT/CAREGIVER WILL VERBALIZE/DEMONSTRATE KNOWLEDGE OF INJECTION THERAPY BY THE END OF THE CERTIFICATION PERIOD. Goal Provider Goal - PATIENT WILL DEMONSTRATE AN INCREASED INTEREST IN SOCIALIZATION AND ACTIVITIES BY THE END OF THE CERTIFICATION PERIOD. Goal Provider Goal - PSYCHOSOCIAL NEEDS WILL BE IDENTIFIED AND PLAN IMPLEMENTED TO MINIMIZE RISK THROUGHOUT CERTIFICATION PERIOD. Goal Provider Goal - PATIENT WILL REMAIN SAFE IN THE COMMUNITY AND WILL BE FREE OF DANGER TO SELF AND OTHERS THROUGHOUT THE CERTIFICATION PERIOD. Encounters Start Date/Time End Date/Time Encounter Type Admission Type Attending [facility] Care Department Encounter ID Discharge Date Discharge Status Discharge Condition Discharge Reason Percent Goals Met 2024-06-20 00:00:00 2024-10-17 00:00:00 Outpatient RECERTIFIC ATRYAN FRENCH [facility] [id number] 30.00
--- OUTSIDE RECORDS SUMMARY | 2024-09-12 16:50 | XMS_ITS | Encounter Summary ---
Author Organization [employer] Address [address] [facility] 7 [place] [address] Care Team Providers Care Health Director Name Role Phone Jd Cordova MD Primary Care Prov ider Reason for Visit * Reason Onset Date Comments Referral 01/13/2024 Encounter Details Date Type Department Care Team (Late Contact Info) Description 01/13/2024 Telephone [facility] MEDICINE [address] [place] [address] Jd Cordova MD [address] [place] [phone] Referral Social History Tobacco Use Types Packs/Day Years Used Date Smoking Tobacco: Former Cigarettes Smokeless Tobacco: Never Comments No Sex and Gender Information Value Date Recorded Sex Assigned at Female 03/19/2022 10:25 AM EDT Legal Sex Female 10:25 AM EDT Gender Identity Female 03/19/2022 10:25 AM EDT Sexual Orientation Choose not to disclose 2021 10:25 AM EDT documented as of this encounter Miscellaneous Notes * Telephone Encounter - Jay Del Valle - 01/13/2024 12:38 PM EDT [facility] a referral to get Colonoscopy done, pt expressed she'll rather due that then that screening lab work sent on 12/24/23 documented in this encounter Plan of Treatment Upcoming Encounters Date Type Department Care Team (Late st Contact Info) Description 09/28/2024 9:30 AM EDT Telemedicine [facility] MED & PEDS [address] [place] [address] Jd Cordova MD [address] [place] [address] documented as of this encounter Visit Diagnoses Not on filedocumented in this encounter Care Teams Health Director Relationship Specialty Start Date End Date Jd Cordova MD [address] [place] [address] PCP - General Internal Medicine 06/30/19 documented as of this encounter
--- OUTSIDE RECORDS SUMMARY | 2024-09-12 16:50 | XMS_ITS | Encounter Summary ---
Author Organization [employer] Address [address] [facility] 7 [place] [address] Care Team Providers Care Corporate Communications Associate Name Role Phone Jd Cordova MD Primary Care Prov ider Reason for Visit * Reason Onset Date Comments Med Refill 09/10/2024 Encounter Details Date Type Department Care Team (Late st Contact Info) Description 09/10/2024 Refill [facility] MEDICINE [address] [place] [address] Jd Cordova MD [address] [place] [id number] Social History Tobacco Use Types Packs/Day Years [...] encounter Miscellaneous Notes * Telephone Encounter - Kremit Talley - 09/10/2024 3:35 PM EDT TC from pt requesting medication refill. Medications needing refill : FREESTYLE LITE test strip To be sent to: [facility] [address] [place] [address] documented in this encounter Plan of Treatment Upcoming Encounters Date Type Department Care Team (Late st Contact Info) Description 09/28/2024 9:30 AM EDT Telemedicine [facility] MED & PEDS [address] [place] [address] dJ Cordova MD [address] [place] [address] documented as of this encounter Visit Diagnoses Not on filedocumented in this encounter Care Teams Corporate Communications Associate Relationship Specialty Start Date End Date Jd Cordova MD [address] [place] [address] PCP - General Internal Medicine 06/30/19 documented as of this encounter
--- OUTSIDE RECORDS SUMMARY | 2024-09-12 16:50 | XMS_ITS | Clinical Summary ---
Author Organization Unknown Care Team Providers Care Electrocardiograph Technician Name Role Phone SANDEEP DEALER DEVELOPMENT MANAGER, NEISHA Unavailable Unavailable CHIKI PAREDES, RYAN Unavailable Unavailable Payers Payer Name Policy Type Policy Number Effective Date Expira tion Date MEDICAID [facility] [id number] Problems Condition Name Condition Details Condition Category [...] 2022-05 00:00: 00 06-18 23:59 :00 No [id number] 70 unit NOON 70 unit NOON (route: subcutaneo us) Med Classific ation: Endocrine docusate sodium 100 mg capsule 2022-05 00:00: 00 06-18 23:59 :00 No [id number] 100 capsule 2 TIMES DAILY 100 capsule 2 TIMES DAILY (route: oral) Med Classific ation: Gastroint estinal Therapy Agents senna 8.6 mg tablet 2022-05 00:00: 00 04-22 23:59 :00 No [id number] 8.6 mg DAILY 8.6 mg DAILY (route: oral) Med Classific ation: Gastroint estinal Therapy Agents lisinopril 10 mg tablet 2022-05 00:00: 00 04-29 23:59 :00 No [id number] 10 mg DAILY 10 mg DAILY (route: oral) Med Classific ation: Cardiovas cular Therapy Agents Vitamin C 500 mg tablet 2022-05 00:00: 00 04-22 23:59 :00 No [id number] 500 mg DAILY 500 mg DAILY (route: oral) Med Classific ation: Electroly te Balance-N utritiona l Products FeroSul 325 mg (65 mg iron) tablet 2022-05 00:00: 00 06-18 23:59 :00 No [id number] 325 mg EVERY AM 325 mg EVERY AM (route: oral) Med Classific ation: Electroly te Balance-N utritiona l Products metformin ER 500 mg tablet,exte nded release 24 hr 2022-05 00:00: 00 06-18 23:59 :00 No [id number] 500 mg 2 TIMES DAILY 500 mg 2 TIMES DAILY (route: oral) Med Classific ation: Endocrine clozapine 100 mg tablet 2022-05 00:00: 00 04-25 23:59 :00 No [id number] 100 mg DAILY 100 mg DAILY (route: oral) Med Classific ation: Central Nervous System Agents clozapine 25 mg tablet 2022-05 00:00: 00 06-18 23:59 :00 No [id number] 25 mg BEDTIME 25 mg BEDTIME (route: oral) Med Classific ation: Central Nervous System Agents divalproex ER 500 mg tablet,exte nded release 24 hr 2022-05 00:00: 00 06-18 23:59 :00 No [id number] 500 mg BEDTIME 500 mg BEDTIME (route: oral) Med Classific ation: Central Nervous System Agents metoprolol tartrate 25 mg tablet 2022-05 00:00: 00 06-18 23:59 :00 No [id number] 25 mg 2 TIMES DAILY 25 mg 2 TIMES DAILY (route: oral) Med Classific ation: Cardiovas cular Therapy Agents omeprazole 20 mg capsule,del ayed release 2022-05 00:00: 00 06-18 23:59 :00 No [id number] 20 capsule EVERY AM 20 capsule EVERY AM (route: oral) Med Classific ation: Gastroint estinal Therapy Agents perphenazin e 4 mg tablet 2022-05 00:00: 00 04-22 23:59 :00 No [id number] 4 mg DAILY 4 mg DAILY (route: oral) Med Classific ation: Central Nervous System Agents sertraline 50 mg tablet 2022-05 00:00: 00 06-18 23:59 :00 No [id number] 50 mg EVERY AM 50 mg EVERY AM (route: oral) Med Classific ation: Central Nervous System Agents Trulicity 1.5 mg/0.5 mL subcutaneou s pen injector 2022-05 00:00: 00 06-18 23:59 :00 No [id number] 1.5 mg WEEKLY 1.5 mg WEEKLY (route: subcutaneo us) Med Classific ation: Endocrine lisinopril 2.5 mg tablet 2022-05 00:00: 00 06-18 23:59 :00 No [id number] 2.5 mg EVERY AM 2.5 mg EVERY AM (route: oral) Med Classific ation: Cardiovas cular Therapy Agents Lantus Solostar U-100 Insulin 100 unit/mL (3 mL) subcutaneou s pen 06-20 00:00: 00 Yes [id number] 70 unit DAILY 70 unit DAILY (route: subcutaneo us) Med Classific ation: Endocrine Trulicity 1.5 mg/0.5 mL subcutaneou s pen injector 06-20 00:00: 00 Yes [id number] 1.5 mg WEEKLY 1.5 mg WEEKLY (route: [...] AWARENESS FOR SAFETY AND WILL NOTIFY CLINICAL INDUSTRIAL ENGINEERING INTERN AND PHYSICIAN/PROVIDER WITH ANY CHANGE IN CONDITION. [code = SKILLED NURSE WILL MAINTAIN SITUATIONAL AWARENESS FOR SAFETY AND WILL NOTIFY CLINICAL INDUSTRIAL ENGINEERING INTERN AND PHYSICIAN/PROVIDER WITH ANY CHANGE IN CONDITION.] Goal Patient Goal - TAKING MY INS ULIN Goal 2024-08-14 Patient Goal - TAKING MY INS ULIN Goal Provider Goal - A PLAN OF CARE WILL BE ESTABLISHED THAT MEETS PATIENT'S [facility] NEEDS AND INCLUDES PATIENT GOAL FOR HOME [...] End Date/Time Encounter Type Admission Type Attending [facility] Care Department Encounter ID Discharge Date Discharge Status Discharge Condition Discharge Reason Percent Goals Met 2024-06-20 00:00:00 2024-10-17 00:00:00 Outpatient RECERTIFIC ATRYAN FRENCH [facility] [id number] 30.00
--- OUTSIDE RECORDS SUMMARY | 2024-09-12 16:50 | XMS_ITS | Encounter Summary ---
Author Organization [employer] Address [address] [place] [address] 7 [place] [address] Care Team Providers Care Earth Sciences Professor Name Role Phone Jd Cordova MD Primary Care Prov ider Reason for Visit * Reason Onset Date Comments Med Refill 05/01/2023 Encounter Details Date Type Department Care Team (Late Contact Info) Description 05/01/2023 Telephone [facility] MED & PEDS [address] [place], [place] [id number] Jd Cordova MD [address] [place] [address] Med Refill Social History Tobacco Use Types Packs/Day Years [...] encounter Miscellaneous Notes * Telephone Encounter - Estuardo Macedo - 05/01/2023 4:49 PM EST Tc from [facility] working with [employer] calling to request 4 times daily and needles for Lantus SoloStar 100 UNIT/ML pen. If any questions contact [facility] at [phone]. documented in this encounter Plan of Treatment Upcoming Encounters Date Type Department Care Team (Late Contact Info) Description 09/28/2024 9:30 AM EDT Telemedicine [facility] MED & PEDS [address] [place] [address] dJ Cordova MD [address] [place] [address] documented as of this encounter Visit Diagnoses Not on filedocumented in this encounter Care Teams Earth Sciences Professor Relationship Specialty Start Date End Date Jd Cordova MD [address] [place] [address] PCP - General Internal Medicine 06/30/19 documented as of this encounter
--- OUTSIDE RECORDS SUMMARY | 2024-09-12 16:50 | XMS_ITS | Encounter Summary ---
Author Organization [employer] Address [address] [facility] 7 [place] [address] Care Team Providers Care Inventory Specialist Name Role Phone Jd Cordova MD Primary Care Prov ider Reason for Visit * Reason Onset Date Comments Med Refill 05/03/2023 Encounter Details Date Type Department Care Team ([facility] st Contact Info) Description 05/03/2023 Telephone [facility] MEDICINE [address] [place] [address] Jd Cordova MD [address] [place] [phone] Med Refill Social History Tobacco Use Types [...] encounter Miscellaneous Notes * Telephone Encounter - Akanksha Calderon RN - 05/03/2023 12:39 PM EST Please review message below and advise. Pt sees endo and has prescribed insulin kwikpen 3x daily and lantus once daily. * Telephone Encounter - Ramirez Grissom - 05/03/2023 11:26 AM EST Tc from patients supportive employment case manager calling to request a new script for GNP UltiCare Pen [place] 31G X 5 MM misc stated needs to say 4 times shayy please clarify. documented in this encounter Plan of Treatment Upcoming Encounters Date Type Department Care Team ([facility] st Contact Info) Description 09/28/2024 9:30 AM EDT Telemedicine [facility] MED & PEDS [address] [place] [address] Jd Cordova MD [address] [place] [address] documented as of this encounter Visit Diagnoses Not on filedocumented in this encounter Care Teams Inventory Specialist Relationship Specialty Start Date End Date Jd Cordova MD [address] [place] [address] PCP - General Internal Medicine 06/30/19 documented as of this encounter
--- OUTSIDE RECORDS SUMMARY | 2024-09-12 16:50 | XMS_ITS | Encounter Summary ---
Author Organization [employer] Address [address] [place] [address] 7 [place] [address] Care Team Providers Care Cyberathlete Name Role Phone Jd Cordova MD Primary Care Prov ider Encounter Details Date Type Department Care Team (Late Contact Info) Description 06/25/2023 Orders Only [facility] MED & PEDS [address] [place], [place] [phone] Jd Cordova MD [address] [place], [place] [phone] Type 2 diabetes mellitus without complication, with long-term current use of insulin (CMS/HCC) (Primary Dx) Social History Tobacco Use Types Packs/Day Years [...] EDT Telemedicine [facility] [address] [place], [place] [phone] Jd Cordova MD [address] [place] [address] documented as of this encounter Visit Diagnoses Diagnosis Type 2 diabetes mellitus without complication, with long-term current use of insulin (CMS/HCC)- Primary documented in this encounter Care Teams Cyberathlete Relationship Specialty Start Date End Date Jd Cordova MD [address] [place] [id number] PCP - General Internal Medicine 06/30/19 documented as of this encounter
--- OUTSIDE RECORDS SUMMARY | 2024-09-12 16:50 | XMS_ITS | Encounter Summary ---
Author Organization [employer] Address [address] [facility] 7 [place] [address] Care Team Providers Care Education Reviewer Name Role Phone Jd Cordova MD Primary Care Prov ider Reason for Visit * Reason Onset Date Comments Durable Medical Equipment 04/25/2023 Encounter Details Date Type Department Care Team ([facility] st Contact Info) Description 04/25/2023 Telephone [facility] MEDICINE [address] [place] [address] Jd Cordova MD [address] [place] [id number] Durable Medical Equipment Social History Tobacco Use Types Packs/Day Years [...] encounter Miscellaneous Notes * Telephone Encounter - Jojo Nogueira LPN - 04/25/2023 1:01 PM EST Please review message below pt will need appt to discuss DME need. * Telephone Encounter - Analia Lee - 04/25/2023 10:48 AM EST Tc from [facility] requesting DME. Diabetics shoes To be send Tanvi Any questions contact [facility] [phone] documented in this encounter Plan of Treatment Upcoming Encounters Date Type Department Care Team ([facility] st Contact Info) Description 09/28/2024 9:30 AM EDT Telemedicine [facility] MED & PEDS [address] [place] [address] Jd Cordova MD [address] [place] [address] documented as of this encounter Visit Diagnoses Not on filedocumented in this encounter Care Teams Education Reviewer Relationship Specialty Start Date End Date Jd Cordova MD [address] [place] [address] PCP - General Internal Medicine 06/30/19 documented as of this encounter
--- OUTSIDE RECORDS SUMMARY | 2024-09-12 16:50 | XMS_ITS | Encounter Summary ---
Author Organization [employer] Address [address] [facility] 7 [place] [address] Care Team Providers Care House Admin Name Role Phone Jd Cordova MD Primary Care Prov ider Reason for Visit * Reason Onset Date Comments Medication Question 09/26/2023 Encounter Details Date Type Department Care Team ([facility] st Contact Info) Description 09/26/2023 Telephone [facility] MEDICINE [address] [place] [address] Jd Cordova MD [address] [place] [phone] Medication Question Social History Tobacco Use Types Packs/Day Years [...] Telephone Encounter - Akanksha Calderon RN - 10/16/2023 9:42 AM EDT Noted thank you. * Telephone Encounter - Estuardo Macedo - 09/26/2023 10:41 AM EDT Tc from [facility], staff at pt's senior care, calling in regards to Senna-Gen 8.6 mg. Pt was prescribed Senna-Gen by psychiatrist but psychiatrist is no longer working in office and [facility] is requesting for pcp to sign medication for pt to continue taking it. If any questions you can contact [facility] at [phone]. documented in this encounter Plan of Treatment Upcoming Encounters Date Type Department Care Team ([facility] st Contact Info) Description 09/28/2024 9:30 AM EDT Telemedicine [facility] MED & PEDS [address] [place] [address] Jd Cordova MD [address] [place] [address] documented as of this encounter Visit Diagnoses Not on filedocumented in this encounter Care Teams House Admin Relationship Specialty Start Date End Date Jd Cordova MD [address] [place] [address] PCP - General Internal Medicine 06/30/19 documented as of this encounter
--- OUTSIDE RECORDS SUMMARY | 2024-09-12 16:50 | XMS_ITS | Encounter Summary ---
Author Organization [employer] Address [address] [place] [address] 7 [place] [address] Care Team Providers Care X Ray Service Technician Name Role Phone Jd Cordova MD Primary Care Prov ider Encounter Details Date Type Department Care Team ([facility] Contact Info) Description 01/23/2024 Telephone [facility] MED [facility]EDS [address] [place] [address] Jd Cordova MD [address] [place] [address] Social History Tobacco Use Types Packs/Day Years [...] Info) Description 09/28/2024 9:30 AM EDT Telemedicine [facility] MED [facility]EDS [address] [place] [address] Jd Cordova MD [address] [place] [address] documented as of this encounter Visit Diagnoses Not on filedocumented in this encounter Care Teams X Ray Service Technician Relationship Specialty Start Date End Date Jd Cordova MD [address] [place] [address] PCP - General Internal Medicine 06/30/19 documented as of this encounter
--- OUTSIDE RECORDS SUMMARY | 2024-09-12 16:50 | XMS_ITS | Encounter Summary ---
Author Organization [employer] Address [address] [place] [address] [place] [address] Care Team Providers Care Senior Supplier Quality Engineer Name Role Phone Jd Cordova MD Primary Care Prov ider Encounter Details Date Type Department Care Team (Late Contact Info) Description 07/10/2023 Orders Only [facility] MED & PEDS [address] [place] [address] Jd Cordova MD [address] [place], [place] [phone] Social History Tobacco Use Types Packs/Day Years [...] Description 09/28/2024 9:30 AM EDT Telemedicine [facility] MED & PEDS [address] [place] [address] Jd Cordova MD [address] [place] [address] documented as of this encounter Visit Diagnoses Not on filedocumented in this encounter Care Teams Senior Supplier Quality Engineer Relationship Specialty Start Date End Date Jd Cordova MD [address] [place] [address] PCP - General Internal Medicine 06/30/19 documented as of this encounter
--- OUTSIDE RECORDS SUMMARY | 2024-09-12 16:50 | XMS_ITS | Encounter Summary ---
Author Organization [employer] Address [address] [facility] 7 [place] [address] Care Team Providers Care Tongue Stitcher Name Role Phone Jd Cordova MD Primary Care Prov ider Reason for Visit * Reason Onset Date Comments Med Refill 05/03/2023 Encounter Details Date Type Department Care Team (Late st Contact Info) Description 05/03/2023 Telephone [facility] MEDICINE [address] [place] [address] Jd Cordova MD [address] [place] [address] Med Refill Social History Tobacco Use Types [...] encounter Miscellaneous Notes * Telephone Encounter - Analia Lee - 05/03/2023 1:11 PM EST Tc from [facility] requesting med refill on; GNP [facility] [place] 31G X 5 MM misc (4 times a day) due to insurance. documented in this encounter Plan of Treatment Upcoming Encounters Date Type Department Care Team (Late Contact Info) Description 09/28/2024 9:30 AM EDT Telemedicine [facility] MED & PEDS [address] [place] [address] Jd Cordova MD [address] [place] [address] documented as of this encounter Visit Diagnoses Not on filedocumented in this encounter Care Teams Tongue Stitcher Relationship Specialty Start Date End Date Jd Cordova MD [address] [place] [address] PCP - General Internal Medicine 06/30/19 documented as of this encounter
--- OUTSIDE RECORDS SUMMARY | 2024-09-12 16:50 | XMS_ITS | Clinical Summary ---
Author Organization [employer] Address [address] [place] [address] [address] [place] [address] Care Team Providers Care Hand Plate Stacker Name Role Phone Jd Cordova MD Primary Care Prov ider Allergies Active Allergy Reactions Criticality Noted Date Comments Penicillin G 12/24/2023 Sulfa Antibiotics 08/21/2013 Other reaction(s): PT STATES SWEELING Other reaction(s): puffy eyes Sulfamethoxazole Swelling 06/21/2022 Medications * This document contains information received from the source organization and may not represent a complete record from that organization. Dextromethorpha n-guaiFENesin (Robitussin Cough+Chest Delfin DM) 5-100 MG/5ML liquidIndicatio ns:Viral upper respiratory tract infection Take 20 mL by mouth 3 times daily. 355 mL 023 Active cloZAPine (Clozaril) 100 MG tablet Take 1 tablet (100mg) by mouth every morning and 3 tablets (300mg) by mouth every night at bedtime 023 Active cloZAPine (Clozaril) 25 MG tablet Take 1 tablet (25mg) by mouth every day 023 Active divalproex (Depakote ER) 500 MG 24 hr tablet Take 5 tablets (2500mg) by mouth every night at bedtime 023 Active docusate sodium (Colace) 100 MG capsule Take 1 capsule by mouth twice daily as needed 023 Active Lantus SoloStar 100 UNIT/ML pen Inject 70 units subcutaneously every night 023 Active metFORMIN XR (Glucophage-XR) 500 MG 24 hr tablet Take 2 tablets by mouth twice daily 023 Active perphenazine 4 MG tablet Take 1 tablet by mouth twice daily Active sertraline (Zoloft) 50 MG tablet Take 1 tablet by mouth once daily Active insulin lispro (HumaLOG) 100 UNIT/ML injection Inject under the skin per sliding scale up to 27 units three times a day with meals. Max 85 units/day Active GNP UltiCare Pen Brandon 31G X 5 MM misc Use as directed with insulin daily 100 each 11 023 Active lisinopril 10 MG tabletIndicatio ns:Primary hypertension Take 1 tablet (10 mg) by mouth Once per day. 90 tablet 3 024 2024 Active metoprolol tartrate (Lopressor) 25 MG tabletIndicatio ns:Primary hypertension Take 1 tablet (25 mg) by mouth 2 times daily. 180 tablet 3 024 2024 Active FreeStyle lancets Active sennosides (Senokot) 8.6 MG tablet Take 1 tablet (8.6 mg) by mouth Once per day. 90 tablet 3 024 2024 Active Trulicity 3 MG/0.5ML solution auto-injector Inject 3 mg under the skin every 7 (seven) days. Active ascorbic acid (Vitamin C) 500 MG tablet TAKE 1 TABLET BY MOUTH TWICE DAILY 180 tablet 2 025 Active omeprazole (PriLOSEC) [address] capsule TAKE 1 CAPSULE BY MOUTH EVERY DAY BEFORE A MEAL 90 capsule 1 025 Active ferrous sulfate 325 (65 Fe) MG tabletIndicatio ns:Iron deficiency anemia, unspecified iron deficiency anemia type TAKE 1 TABLET BY MOUTH EVERY DAY WITH BREAKFAST 90 tablet 025 Active FREESTYLE LITE test strip Glucose monitoring BID 100 each 3 025 Active FREESTYLE LITE test strip 024 2024 Discontinued(R eorder (will not trigger notification to Pharmacy)) ferrous sulfate 325 (65 Fe) MG tabletIndicatio ns:Iron deficiency anemia, unspecified iron deficiency anemia type TAKE 1 TABLET BY MOUTH EVERY DAY WITH BREAKFAST 90 tablet 1 024 2024 Discontinued(R eorder (will not trigger notification to Pharmacy)) Active Problems Problem Noted Date Diagnosed Date Cough 09/25/2023 Assessment & Plan (09/25/2023 3:34 PM EDT): Cough, congestion, chills, covid/flu negative, continue good hydration, call back if not improving Hospital discharge follow-up 03/02/2023 Assessment & Plan (12/24/2023 12:56 PM EDT): Patient was hospitalized from 12/01-12/11 due to hearing voices and increasing depression and suicidal thoughts. Patient currently refers she feels much better, voices are less frequent and less louder, denied active suicidal/homicidal thoughts. She is following with therapist and psych Assessment & Plan (03/02/2023 10:28 AM EDT): [facility] due to behavioral changes and hallucinations. Depakote was titrated and currently on 2500mg daily, rest of medications stayed the same. Patient pending cbc she refers was done this past Saturday by a VNA. Patient is much mentally stable, no hallucinations no suicidal/homicidal ideas, follow up with psych HTN (hypertension) 03/01/2023 03/01/2023 Bilateral lower extremity edema 08/08/2022 Assessment & Plan (08/08/2022 5:42 PM EDT): Will reorder bilateral compression stocking, to be worn during the day, avoid prolongued seating/standing, elevate extremities Screening for cervical cancer 08/08/2022 Type 2 diabetes mellitus wit hout complication, with long-term current use of insulin 06/21/2022 Assessment & Plan (07/01/2024 10:40 AM EST): Uncontrolled, told to resume previous endocrinology orders, monitor glucose avoid hypoglycemia< 70 Assessment & Plan (12/24/2023 12:53 PM EDT): Uncontrolled, she was discharged from psych [facility] without her insulin treatment, has a appointment with endo this afternoon, will defer decision on to which dose she will be started Assessment & Plan (09/25/2023 3:30 PM EDT): Will order new labs for guidance of therapy Foot examination done was unremarkable, Will send rx for Diabetic shoes, she used to have them before, will benefit from decrease pressure points to decrease risk of ulcer Assessment & Plan (12/26/2022 12:26 PM EDT): Controlled, a1c 6.0% followed by endocrinology, patient on metformin/lantus and trulicity Will refer for eye exam Assessment & Plan (08/08/2022 5:45 PM EDT): Controlled, a1c 7.0%, follow up endocrinology, continue trulicity, short/long acting insulin and metformin Eye exam done on April Assessment & Plan (06/21/2022 9:30 AM EST): Followed by endocrinology, currently on lantus 65 units, trulicity 1.5mg, and metformin, will order new labs Primary hypertension 06/21/2022 Assessment & Plan (12/24/2023 12:52 PM EDT): Controlled, no changes will be made, reinforced low sodium diet and exercise as tolerated Assessment & Plan (09/25/2023 12:39 PM EDT): Controlled, continue low sodium diet and exercise as toelrated, keep bp <130/80, new labs will be orderd Assessment & Plan (12/26/2022 12:25 PM EDT): Controlled, on lisinopril 10mg, reinforced low sodium diwt and exercise as tolerated, Assessment & Plan (08/08/2022 5:43 PM EDT): Controlled, no changes will be made, reinforced low sodium diet and exercise as tolerated, continue lisinopril 10mg Assessment & Plan (06/21/2022 9:30 AM EST): Not at target, will increase lisinopril to 10mg and follow up in office in july Dry skin 06/21/2022 Assessment & Plan (06/21/2022 9:35 AM EST): Will send script for cerave Chronic idiopathic constipation 06/21/2022 Assessment & Plan (06/21/2022 9:36 AM EST): Will send senna 8.6 bid, increase fiber in ddiet Screening for colon cancer 06/21/2022 Assessment & Plan (12/24/2023 10:21 AM EDT): Will send cologuard, refused colonoscopy Assessment & Plan (06/21/2022 9:37 AM EST): Will order Ifobt test, refused colonoscopy Viral upper respiratory tract infection 06/21/19 Assessment & Plan (06/21/2022 9:39 AM EST): Tested negative for covid, will order robitussin and tylenol Lymphedema 06/21/2022 Assessment & Plan (06/21/2022 9:43 AM EST): Will order scrip for compression stocking knee high 15-20mmhg Severe obesity 06/16/2018 03/01/2023 Essential hypertension 06/16/2018 Assessment & Plan (09/25/2023 3:27 PM EDT): Controlled, continue low sodium diet and exercise as tolerated, keep bp <130/80 Nicotine dependence 04/23/2016 03/01/2023 Vitamin D deficiency 04/23/2016 03/01/2023 Bipolar I disorder 02/10/2013 03/01/2023 Diabetes mellitus 02/10/2013 03/01/2023 Assessment & Plan (10/02/2023 11:38 PM EDT): Controlled, no reported episode of hypoglycemia, on lantus, metformin, trulicity, keep low car/no sugar diet, requesting diabetic shoe, call back with size and specification to place order Gastroesophageal reflux disease 02/10/2013 03/01/2023 Schizophrenia 02/10/2013 03/01/2023 Assessment & Plan (07/01/2024 10:39 AM EST): Patient was admitted from 06/09-06/18 due to SI with plan to overdose secondary to AH and worsening depression. Patient refers doing much better now, no suicidal/homicidal ideas, not hearing voice, has scheduled follow up with psych Hypertension 02/10/2013 03/01/2023 Encounters Date Type Department Care Team Description 09/10/2024 Refill [facility] [address] [place] [address] Jd Cordova MD 09/04/2024 Refill [facility] [address] [place] [address] Jd Cordova MD Iron deficiency anemia, unspecified iron deficiency anemia type 08/04/2024 Refill [facility] [address] [place] [address] Jd Cordova MD 07/31/2024 Population Health Risk Score [facility] () Department [address] [address] Provider, Population Health Generic 07/01/2024 10:00 AM EST Office Visit [facility] [address] [place] [address] Jd Cordova MD Hospital discharge follow-up (Primary Dx); Type 2 diabetes mellitus without complication, with long-term current use of insulin (CMS/[facility]); Dietary counseling; Exercise counseling; Schizophrenia, unspecified type (CMS/HCC) 07/01/2024 Travel 06/30/2024 Telephone [facility] [address] [place] [address] Jd Cordova MD Chart Prep 06/15/2024 Patient Outreach [facility] [address] [place] [address] Jd Cordova MD Transition Of Care (Tcm) (HDF scheduled) from Last 3 Months Immunizations Name Administration Dates Next Due Hep B, adult 03/24/2018,02/17/2018 Influenza injectable quadriv alent IIV4 with preservative 03/16/2022,07/09/2019,02/17/2018,04/23 Influenza injectable quadriv alent preservative free 03/01/2023 Influenza, IIV3, injectable 02/21/2010 Pneumococcal Polysaccharide PPSV23 12/26/2022, Tdap 02/17/2018 Social History Tobacco Use Types Packs/Day Years Used Date Smoking Tobacco: Former Cigarettes Smokeless Tobacco: Never Tobacco Cessation:Counseling Given: Not Answered Comments No Sex and Gender Information Value Date Recorded Sex Assigned at Female 03/19/2022 10:25 AM EDT Legal Sex Female 10:25 AM EDT Gender Identity Female 03/19/2022 10:25 AM EDT Sexual Orientation Choose not to disclose 2021 10:25 AM EDT Last Filed Vital Signs Vital Sign Reading Time Taken Comments Blood Pressure 134/82 07/01/2024 10:17 AM EST Pulse 88 07/01/2024 10:17 AM EST Temperature 37.1 ??C (98.7 ??F) 07/01/2024 10:[address] Respiratory Rate 20 07/01/2024 10:17 AM EST Oxygen Saturation 99% 07/01/2024 10:17 AM EST Inhaled Oxygen Concentration - - Weight 127 kg (280 lb 9.6 oz) 07/01/2024 10:17 A M EST Height 160 cm (5' 3 ) 07/01/2024 10:17 AM EST Body Mass Index 49.71 07/01/2024 10:17 AM EST Plan of Treatment Upcoming Encounters Date Type Department Care Team (Late st Contact Info) Description 09/28/2024 9:30 AM EDT Telemedicine [facility] [address] [place] [address] Jd Cordova MD [address] [place] [address] Health Maintenance Due Date Last Done Comments CT Colonography 1975 Colonoscopy 1975 Depression Screening 1975 FIT DNA/Cologuard 1975 SDOH Screening 1975 Sigmoidoscopy 1974 Alcohol/Substance Use Screening 1986 Family Planning (PISQ) 1989 Hepatitis B Vaccines (3 of 3 - 19+ 3-dose series) 08/18/2018 03/24/2018, 02/17/2018 Diabetes: Urine Protein Screening 07/09/2020 07/09/2019 Lipid Panel 06/26/2023 06/26/2022, 06/27/2021 Colorectal Cancer Screening 07/01/2023 FIT 07/01/2023 07/01/2022 FOBT 07/01/2023 07/01/2022 Pneumococcal Vaccine: Pediatrics (0 to 5 Years) and At-Risk Patients (6 to 49) Years) (2 of 2 - PCV) 12/27/2023 12/26/2022, 02/17/2018 COVID-19 Vaccine ( - season) 2024 03/16/2022, 03/15/2021, 07/07/2020, Additional history exists Influenza Vaccine (#1) 2024 , 03/16/2022, 07/09/2019, Additional history exists Tobacco Screening 04/18/2024 04/18/2023 Mammogram 07/12/2024 07/12/2022 Diabetes: Foot Exam 09/24/2024 09/25/2023, 09/25/2023, 09/25/2023, Additional history exists Diabetes: Hemoglobin A1C 09/28/2024 025, 12/24/2023, 12/26/2022, Additional history exists Zoster Vaccines (1 of 2) 2024 Eye Exam 04/04/2025 04/04/2023, 03/20, 04/04/2023, Additional history exists Cervical Cancer Screening 12/06/2025 HPV/Cotest 12/06/2025 12/06/2020 Pap Smear 12/06/2025 12/06/2020 DTaP/Tdap/Td Vaccines (2 - Td or Tdap) 02/18/2028 02/17/2018 RSV Patients and Patients Aged 60 years or older (1 - 1-dose 75+ series) 2049 HIV Screening Completed 06/26/2022, 07/09/2019 Hepatitis C Screening Completed 06/26/2022, 022 HIB Vaccines Aged Out No longer eligi ble based on patient's age to complete this topic HPV Vaccines Aged Out No longer eligi ble based on patient's age to complete this topic Hepatitis A Vaccines Aged Out No long er eligible based on patient's age to complete this topic IPV Vaccines Aged Out No longer eligi ble based on patient's age to complete this topic Meningococcal Vaccine Aged Out No jamaal derrell eligible based on patient's age to complete this topic RSV under 20 months Aged Out No longe r eligible based on patient's age to complete this topic Rotavirus Vaccines Aged Out No longer eligible based on patient's age to complete this topic Procedures Procedure Name Priority Date/Time Associated Diagnosis Comments POCT GLYCATED HEMOGLOBIN, TOTAL Routine 07/01/2024 3:38 PM EST Type 2 diabetes mellitus without complication, with long-term current use of insulin (CMS/HCC) POCT GLUCOSE Routine 07/01/2024 3:37 PM EST Type 2 diabetes mellitus without complication, with long-term current use of insulin (CMS/HCC) BI MAMMOGRAM SCREENING TOMOSYNTHESIS BILATERAL Routine 07/12/2022 10:15 AM EST FECAL GLOBIN BY IMMUNOCHEMISTRY Routine 07/01/2022 12:00 AM EST HEPATITIS C AB W/REFL TO HCV RNA, QN, PCR Routine 06/26/2022 10:02 AM EST Type 2 diabetes mellitus without complication, with long-term current use of insulin (CMS/HCC) Primary hypertension HIV 1 RNA, QN PCR W/RFL ANTONIO (RTI,PI,INTEGRASE) Routine 06/26/2022 10:02 AM EST Type 2 diabetes mellitus without complication, with long-term current use of insulin (CMS/HCC) Primary hypertension LIPID PANEL, STANDARD Routine 06/26/2022 10:02 AM EST Type 2 diabetes mellitus without complication, with long-term current use of insulin (CMS/HCC) Primary hypertension HPV MRNA E6/E7 Routine 12/06/2020 10:21 AM EDT THINPREP PAP Routine 12/06/2020 10:21 AM EDT ZRADHA HISTORICAL MICROALBUMIN, RANDOM Routine 07/09/2019 12:04 PM EST from Last 3 Months or Most Recently Relevant to Health Maintenance Results * (ABNORMAL) POCT HGB A1C (07/01/2024 3:38 PM EST) Hemoglobin A1C 7.1(A) 4.0 - 6.0 % QC Media Lot # [id number] Lot# Expiration Date Blood 07/01/2024 3:38 PM EST Jd Guevara MD POINT OF C ARE TEST ENTER/EDIT ORDERABLES Edited Result - Final * POCT Glucose (07/01/2024 3:37 PM EST) Glucose Blood, POC 80 60 - 200 mg/dL QC Media Lot # [id number] Lot# Expiration Date Blood Capillary blood specimen / Unknown 07/01/2024 3:37 PM EST Jd Guevara MD POINT OF C ARE TEST ENTER/EDIT ORDERABLES Edited Result - Final * BI Mammogram Screening Tomosynthesis Bilateral (07/12/2022 10:15 AM EST) Anatomical Region Laterality Modality Breast Bilateral Mammography 07/12/2022 10:1 5 AM EST Narrative 07/13/2022 2:26 PM EST ? [facility] ? [address] ?[place] [address] ? Mammography Report ? Signed ? Patient: Yuni Dhillon ?MR#: [id number] ?? [id number] ? : 1975 ?Acct:[id number] ? Age/Sex: 46 / F ?ADM Date: /23/23 ? Loc: HO.MAMMO ? Attending Dr: Gregorio Patel CNM ? Ordering Physician: GREGORIO PATEL CNM ?Results: 1 ?? Negative ? Date of Service: 07/12/22 ?Follow Up: 1 Year From Orig ?? inal Mammogram ? Procedure(s): MM tomosynthesis screening BI ?? Accession Number(s): [id number] ? cc: GREGORIO PATEL CNGreg ? EXAMINATION: ?? MM SCREENING DIGITAL BREAST TOMOSYNTHESIS, BILATERAL ? CLINICAL INFORMATION: ? Screening. Asymptomatic. ? The lifetime risk of breast cancer based on the Tyrer-Cuzick Model is ?? 12%. ? COMPARISON: ?? Mammography: 07/10/2021 (baseline). ? TECHNIQUE: ?? Digital breast tomosynthesis is performed in both the craniocaudal and ?? mediolateral oblique views along with computer-aided detection (CAD). ?? Synthesized 2D images are generated from the tomosynthesis. ? FINDINGS: ?? There are scattered areas of fibroglandular density (ACR BI-RADS breast ?? composition Category b). ? There are no significant masses, abnormal calcifications, or other ?? abnormalities. ??Parenchymal pattern is similar to prior studies. There ?? is no developing density or architectural abnormality. The axilla and ?? skin contours are unremarkable. No significant changes. ? MM/MM tomosynthesis screening BI ?? IMPRESSION: ?? No mammographic evidence of malignancy. ? ASSESSMENT: ? BI-RADS 1: Negative ? RECOMMENDATION: ?? Routine annual mammography screening. ? This patient's information was entered into a reminder system with a ?? target due date for their next mammogram. ? Dictated By: ?Stephen Vivas MD ? Signed By: ?<Electronically signed by Stephen Vivas MD in OV> ?07/13/223 ? DD/ 1015 ? TD/TT: ? Telegraph Lineman: DILLARD ? Procedure Note Donotuseinterpreter, Image - 07/13/2022 [facility] [address] [place] [address] Mammography Report Signed Patient: Magdalena Dhillon#: [id number] : 1975Acct:[id number] Age/Sex: 46 / FADM Date: 07/12/22 Loc: HO.MAMMO Attending Dr: Gregorio Patel CNM Ordering Physician: GREGORIO PATELesults: 1 Negative Date of Service: 07/12/22Follow Up: 1 Year From Orig inal Mammogram Procedure(s): MM tomosynthesis screening BI Accession Number(s): [id number] cc: GREGORIO PATEL CNM EXAMINATION: MM SCREENING DIGITAL BREAST TOMOSYNTHESIS, BILATERAL CLINICAL INFORMATION: Screening. Asymptomatic. The lifetime risk of breast cancer based on the Tyrer-Cuzick Model is 12%. COMPARISON: Mammography: 07/10/2021 (baseline). TECHNIQUE: Digital breast tomosynthesis is performed in both the craniocaudal and mediolateral oblique views along with computer-aided detection (CAD). Synthesized 2D images are generated from the tomosynthesis. FINDINGS: There are scattered areas of fibroglandular density (ACR BI-RADS breast composition Category b). There are no significant masses, abnormal calcifications, or other abnormalities. Parenchymal pattern is similar to prior studies. There is no developing density or architectural abnormality. The axilla and skin contours are unremarkable. No significant changes. MM/MM tomosynthesis screening BI IMPRESSION: No mammographic evidence of malignancy. ASSESSMENT: BI-RADS 1: Negative RECOMMENDATION: Routine annual mammography screening. This patient's information was entered into a reminder system with a target due date for their next mammogram. Dictated By: Stephen Vivas MD Signed By: <Electronically signed by Stephen Vivas MD in OV> 07/13/22 1423 DD/ 1015 TD/TT: Telegraph Lineman: DILLARD [facility] External Provider IMG BI PROCEDURES Final Result * Fecal Globin by Immunochemistry (07/01/2022 12:00 AM EST) Fecal Globin By Immunochemistry SEE NOTE [facility] Comment: ??FECAL GLOBIN BY IMMUNOCHEMISTRY ?Micro Number: ?[id number] ??Test Status: ? Final ??Specimen Source: ?? Insure (tm) fobt test card ??Specimen Quality: ??Adequate ??Fecal Globin: ?Not Detected 07/01/2022 07/10/2022 8:5 2 PM EST Narrative [facility] - 07/11/2022 8:49 AM EST FASTING: UNKNOWN [facility] External Provider LAB BODY FLUIDS AND STOOLS ORDERABLES Final Result [facility] [address], [place] [address] [facility] [address] [facility], ([address]) [place] [address] * HIV-1 RNA, Quantitative, Real-Time PCR with Reflex to Genotype (RTI, PI, Integrase) (06/26/2022 10:02 AM EST) Pathologist [facility] [place] HIV 1 RNA, QN PCR NOT DETECTED copies/mL [facility] [employer] [facility] 1 RNA, QN PCR NOT DETECTED Log copies/mL [facility] [employer] [facility], Comment: REFERENCE RANGE: NOT DETECTED copies/mL ?NOT DETECTED ??Log copies/mL This test was performed using Real-Time Polymerase Chain Reaction. Reportable range is 20 to 10,000,000 copies/mL (1.30-7.00 Log copies/mL). 06/26/2022 10:0 2 AM EST 06/26/2022 10:02 AM EST Narrative [facility] - 06/29/2022 9:27 PM EST FASTING:YES FASTING: YES Jd Guevara MD LAB BLOOD ORDERABL ES Final Result Performing Organization Address [facility] de Phone Number [address], [place] [address] [facility], [address] [place] [address] * Hepatitis C Antibody with Reflex to HCV, RNA, Quantitative, Real-Time PCR (06/26/2022 10:02 AM EST) Hepatitis C Antibody NON-REACT PENNIE NON-REACT PENNIE [facility] [place] [employer] Index <0.02 <1.00 [facility] [place] [employer] Comment: HCV antibody was non-reactive. There is no laboratory evidence of HCV infection. In most cases, no further action is required. However, if recent HCV exposure is suspected, a test for HCV RNA (test code 81443) is suggested. For additional information please refer to http://education.StudySoup/faq/XJF59i1 (This link is being provided for informational/ educational purposes only.) Blood Venous blood specimen / Unknown 06/26/2022 10:02 AM EST 06/26/2022 10:02 AM EST Narrative [facility] - 06/29/2022 9:27 PM EST FASTING:YES FASTING: YES Jd Guevara MD LAB BLOOD ORDERABL ES Final Result Performing Organization Address [facility] Co de Phone Number [address], [place] [address] [facility] [place] [employer] [address] [facility], ([address]) [place] [address] * (ABNORMAL) Lipid Panel, Standard (06/26/2022 10:02 AM EST) Cholesterol, Total 127 <200 mg/dL [facility] [place] [employer] HDL Cholesterol 36(L) > OR = 50 mg/dL [facility] [place] [employer] Triglycerides 114 <150 mg/dL [facility] [place] [employer] LDL Cholesterol 71 mg/dL (calc) [facility] [place] [employer] Comment: Reference range: <100 Desirable range <100 mg/dL for primary prevention; ?? <70 mg/dL for patients with CHD or diabetic patients with > or = 2 CHD risk factors. LDL-C is now calculated using the Magaly calculation, which is a validated novel method providing better accuracy than the Friedewald equation in the estimation of LDL-C. Darion SS et al. RIKA. 2013;310(19): 8273-8225 (http://education.MadRat Games/faq/TNJ385) Chol/HDLC Ratio 3.5 <5.0 (calc) [facility] [place] [facility] Non-HDL Cholesterol 91 <130 mg/dL (calc) [facility] [place] [employer] Comment: For patients with diabetes plus 1 major ASCVD risk factor, treating to a non-HDL-C goal of <100 mg/dL (LDL-C of <70 mg/dL) is considered a therapeutic option. Blood Venous blood specimen / Unknown 06/26/2022 10:02 AM EST 06/26/2022 10:02 AM EST Narrative [facility] - 06/29/2022 9:27 PM EST FASTING:YES FASTING: YES Jd Guevara MD LAB BLOOD ORDERABL ES Final Result [facility] [[email or web address] [address] [facility], [facility], [place] [address] [facility] [place] [employer] [address] [facility], ([address]) [place] [address] * THINPREP PAP (12/06/2020 10:21 AM EDT) Clinical Information: None given [facility] COMMENT SEE COMMENT [facility] Comment: EXPLANATORY NOTE: ? The Pap is a screening test for cervical cancer. It is ?? not a diagnostic test and is subject to false negative ?? and false positive results. It is most reliable when a ?? satisfactory sample, regularly obtained, is submitted ?? with relevant clinical findings and history, and when ?? the Pap result is evaluated along with historic and ?? current clinical information. ?? Sales Assistant Displays : SEE COMMENT [facility] Comment: HJP, CT(ASCP) CT screening location: [address] ??[address] Interpretation/R esult: Negative for intraepithelial lesion or malignancy. [facility] LMP: 11/11/2020 [facility] Prev. BX: NONE GIVEN [facility] Prev. PAP: NONE GIVEN [facility] SOURCE: None given [facility] LAB SYSTEM Statement Of Adequacy: SEE COMMENT [facility] Comment: Satisfactory for evaluation. Endocervical/transformation zone component absent. 12/06/2020 10:2 1 AM EDT Gregorio Patel [facility] LAB PATHOLOGY ORDERABLES Final Result [facility] [address] * HPV mRNA E6/E7 (12/06/2020 10:21 AM EDT) HPV nRNA E6/E7 Not Detected Not Detected [facility] Comment: Methodology: Physical Education Aide-Mediated Amplification This assay detects E6/E7 viral messenger RNA (mRNA) from 14 high-risk HPV types (16,18,31,33,35,39,45,51,52,56,58,59,66,68). ? The analytical performance characteristics of this assay have been determined by [employer]. The modifications have not been cleared or approved by the FDA. This assay has been validated pursuant to the CLIA regulations and is used for clinical purposes. ?? For additional information, please refer to http://education.Proenza Schouer.[employer]/faq/DKP527l5 (This link if provided for information/ educational purposes only.) 12/06/2020 10:2 1 AM EDT us Gregorio Patel CNM LAB BLOOD ORDERABLES Zoe l Result Performing Organization Address [facility]/ZIP Co de Phone Number [facility] [address] * MICROALBUMIN, RANDOM (07/09/2019 12:04 PM EST) CREATININE, RANDOM URINE 7.35 MG/DL [facility] MICALB/CRE RATIO RANDOM URINE Test not performed ug/mg cr [facility] Comment: Unable to calculate albumin/creatinine ratio due to low microalbumin or creatinine result. MICROALBUMIN, RANDOM URINE < 5.0 MG/L [facility] 07/09/2019 12:0 4 PM EST us Jd Guevara MD HISTORICAL/NON ORD ERABLE LABS Final Result Performing Organization Address [facility] de Phone Number [facility] Critical access hospital Any[address] from Last 3 Months or Most Recently Relevant to Health Maintenance Insurance [facility] C3 Care Teams Hand Plate Stacker Relationship Specialty Start Date End Date Jd Cordova MD [address] [place] [address] PCP - General Internal Medicine 06/30/19
--- OUTSIDE RECORDS SUMMARY | 2024-09-12 16:50 | XMS_ITS | Encounter Summary ---
Author Organization [employer] Address [address] [place] [address] 7 [place] [address] Care Team Providers Care Donor Recruitment Manager Name Role Phone Jd Cordova MD Primary Care Prov ider Reason for Visit * Reason Onset Date Comments Medication Question 08/08/2023 Encounter Details Date Type Department Care Team ([facility] st Contact Info) Description 08/08/2023 Telephone [facility] CHC MED & PEDS [address] [place], [place] [phone] Jd Cordova MD [address] [place] [address] Medication Question Social History Tobacco Use Types [...] Telephone Encounter - Jojo Nogueira LPN - 08/22/2023 9:25 AM EDT Message below noted * Telephone Encounter - Asuncion Posada - 08/08/2023 1:37 PM EDT Tc from pharmacy requesting clarification on senna-docusate sodium (Senokot-S) 8.6-50 MG tablet. documented in this encounter Plan of Treatment Upcoming Encounters Date Type Department Care Team (Late st Contact Info) Description 09/28/2024 9:30 AM EDT Telemedicine [facility] MED & PEDS [address] [place] [address] Jd Cordova MD [address] [place] [address] documented as of this encounter Visit Diagnoses Not on filedocumented in this encounter Care Teams Donor Recruitment Manager Relationship Specialty Start Date End Date Jd Cordova MD [address] [place] [address] PCP - General Internal Medicine 06/30/19 documented as of this encounter
--- OUTSIDE RECORDS SUMMARY | 2024-09-12 16:50 | XMS_ITS | Encounter Summary ---
Author Organization [employer] Address [address] [place] [address] 7 [place] [address] Care Team Providers Care Director Operations Name Role Phone Jd Cordova MD Primary Care Prov ider Reason for Visit * Reason Onset Date Comments Referral 05/23/2023 Encounter Details Date Type Department Care Team (Late st Contact Info) Description 05/23/2023 Telephone [facility] CHC MED & PEDS [address] [place], [place] [phone] Jd Cordova MD [address] [place] [address] Referral Social History Tobacco Use Types Packs/Day [...] * Telephone Encounter - Estuardo Macedo - 05/23/2023 9:53 AM EST Tc from [facility] regarding referral. Location: Dr Lopez's office [address] [facility] [address] Date: 06/15/22 Time: N/A Fax: N/A Specialty: Pediatry (Renewal of Referral ) documented in this encounter Plan of Treatment Upcoming Encounters Date Type Department Care Team (Late st Contact Info) Description 09/28/2024 9:30 AM EDT Telemedicine [facility] MED & PEDS [address] [place] [address] Jd Cordova MD [address] [place] [address] documented as of this encounter Visit Diagnoses Not on filedocumented in this encounter Care Teams Director Operations Relationship Specialty Start Date End Date Jd Cordova MD [address] [place] [address] PCP - General Internal Medicine 06/30/19 documented as of this encounter
[2024-09-12 17:26] LABS: MANUAL DIFF FLAG NO
[2024-09-12 17:41] LABS: Acetaminophen LAB < 3 mcg/mL (<30); Alanine Aminotransferase 26 U/L (0-31); Albumin Level 3.4 g/dL (3.5-5.0); Alkaline Phosphatase 54 U/L (39-117); Anion Gap 11 (12-20); Aspartate Amino Transferase 27 U/L (5-31); Bilirubin Total 0.1 mg/dL (0.0-1.0); Blood Urea Nitrogen 10 mg/dL (9-16); Calcium 8.6 mg/dL (8.4-10.2); Carbon Dioxide 24 mmol/L (22-29); Chloride 110 mmol/L (96-108); Creatinine Clr Calc Pharmacy 131.7; Estimated Glomerular Filt Rate > 60; Ethanol < 10 mg/dL; Glucose Random 120 mg/dL (60-115); Potassium 4.4 mmol/L (3.3-5.1); Salicylate < 5.0 mg/dL (15-30); Sodium 141 mmol/L (135-145); Total Protein 5.7 g/dL (6.5-8.0)
[2024-09-12 17:43] LABS: Basophils Percent Auto 0.3 % (0-2); Eosinophils Absolute Auto 0.1 X10*3/uL (0.0-0.4); Hematocrit 35.9 % (37.0-47.0); Hemoglobin 11.4 g/dl (12.0-16.0); Imm Gran Abs Auto 0.07 X10*3/uL (0.00-0.03); Imm Gran Pct Auto 0.6 % (0.0-0.4); Lymphocytes Absolute Auto 3.8 X10*3/uL (1.2-4.9); Lymphocytes Percent Auto 32.7 % (20-40); Mean Corpuscular HGB Conc 31.8 g/dl (31.0-35.0); Mean Corpuscular Hemoglobin 27.6 pg (27.0-33.0); Mean Corpuscular Volume 86.9 fL (80.0-98.0); Mean Platelet Volume 9.6 fL (9.4-12.3); Monocytes Absolute Auto 0.7 X10*3/uL (0.1-1.2); Monocytes Percent Auto 6.3 % (2-11); Neutrophils Absolute Auto 6.9 x10*3/uL (2.0-8.3); Neutrophils Percent Auto 59.1 % (45-73); Platelet Count 279 X10*3/uL (160-400); Red Blood Count 4.13 X10*6/uL (4.20-5.50); Red Cell Distribution Width 14.4 % (11.0-16.0); White Blood Count 11.6 X10*3/uL (4.8-10.8)
[2024-09-12 21:54] VITALS: BP 110/50; PULSE 78; RESP 14; TEMP 36.5; O2SAT 99
[2024-09-12 23:13] LABS: Glucose, Whole Blood 131 mg/dL (60-115)
[2024-09-12] MEDS: Divalproex Sodium ER 500 MG TAB.ER.24H 2500 MG PO (23:17)
[2024-09-12] MEDS: cloZAPine 100 MG TABLET 300 MG PO (23:17)
[2024-09-12 23:19] VITALS: BP 110/50; PULSE 78
[2024-09-12] MEDS: Metoprolol Tartrate 25 MG TABLET PO (23:19)
[2024-09-12] MEDS: Insulin Glargine,Hum.rec.anlog 100 UNIT/ML 10 ML VIAL 70 UNIT SUBCUT (23:20)
[2024-09-12] MEDS: Perphenazine 4 MG TABLET PO (23:20)
[2024-09-12] MEDS: Docusate Sodium 100 MG CAPSULE PO (23:20)
[2024-09-13 08:39] VITALS: BP 122/58; PULSE 79; RESP 16; TEMP 36.6; O2SAT 95
[2024-09-13] MEDS: cloZAPine 100 MG TABLET PO (08:59)
[2024-09-13 09:00] VITALS: BP 122/58; PULSE 79
[2024-09-13] MEDS: Sennosides 8.6 MG TABLET PO (09:00)
[2024-09-13] MEDS: lisinopriL 10 MG TABLET PO (09:00)
[2024-09-13] MEDS: Metoprolol Tartrate 25 MG TABLET PO (09:00)
[2024-09-13] MEDS: Omeprazole 20 MG CAPSULE.DR PO (09:00)
[2024-09-13] MEDS: Ferrous Sulfate 324 MG TABLET.DR PO (09:01)
[2024-09-13] MEDS: Sertraline HCL 50 MG TABLET PO (09:01)
[2024-09-13] MEDS: Docusate Sodium 100 MG CAPSULE PO (09:01)
[2024-09-13] MEDS: cloZAPine 25 MG TABLET PO (09:52)
[2024-09-13] MEDS: Perphenazine 4 MG TABLET PO (09:52)
[2024-09-13 13:20] VITALS: BP 140/75; PULSE 83; RESP 16; TEMP 36.5; O2SAT 97
== END 2024-09-13 13:22 | disposition skilled nursing facility (03) ==
PROVIDERS: Nurse Practitioner Family; Emergency Provider Emergency Medicine
DX: F20.0 Paranoid schizophrenia (principal); R45.851 Suicidal ideations; F17.210 Nicotine dependence, cigarettes, uncomplicated; Z79.899 Other long term (current) drug therapy; Z51.81 Encounter for therapeutic drug level monitoring
CPT/HCPCS: 36415; 80053; 80143; 80179; 80307; 82947; 85025; 99285; S9485

== ENCOUNTER 2024-10-01 16:20 | Outpatient (REF) | payer OTHER, SELFPAY ==
--- OUTSIDE RECORDS SUMMARY | 2024-10-01 16:23 | XMS_ITS | Encounter Summary ---
Author Organization [employer] Address [address] [facility] 7t [place] [address] Care Team Providers Care Litigation Paralegal Name Role Phone Jd Cordova MD Primary Care Prov ider Encounter Details Date Type Department Care Team (Latest Contact Info) Description 09/28/2024 Travel Social History Tobacco Use Types Packs/Day Years [...] as of this encounter Plan of Treatment Not on file documented as of this encounter Visit Diagnoses Not on filedocumented in this encounter Care Teams Litigation Paralegal Relationship Specialty Start Date End Date Jd Cordova MD [address] [place] [address] PCP - General Internal Medicine 06/30/19 documented as of this encounter
--- OUTSIDE RECORDS SUMMARY | 2024-10-01 16:23 | XMS_ITS | Encounter Summary ---
Author Organization [employer] Address [address] [facility] 7 [place] [address] Care Team Providers Care Structural Steel Detailer Name Role Phone Jd Cordova MD Primary Care Prov ider Reason for Visit * Reason Onset Date Comments Referral 01/13/2024 Encounter Details Date Type Department Care Team ([facility] st Contact Info) Description 01/13/2024 Telephone [facility] MEDICINE [address] [place] [address] Jd Cordova MD [address] [place] [phone] Referral Social History Tobacco Use Types Packs/Day [...] - 01/13/2024 12:38 PM EDT [facility] a referral to get Colonoscopy done, pt expressed she'll rather due that then that screening lab work sent on 12/24/23 documented in this encounter Plan of Treatment Not on file documented as of this encounter Visit Diagnoses Not on filedocumented in this encounter Care Teams Structural Steel Detailer Relationship Specialty Start Date End Date Jd Cordova MD [address] [place] [address] PCP - General Internal Medicine 06/30/19 documented as of this encounter
--- OUTSIDE RECORDS SUMMARY | 2024-10-01 16:23 | XMS_ITS | Encounter Summary ---
Author Organization [employer] Address [address] [place] [address] 7 [place] [address] Care Team Providers Care Upper Cutter Out Name Role Phone Jd Cordova MD Primary Care Prov ider Reason for Visit * Reason Onset Date Comments Nurse Triage 09/30/2024 Encounter Details Date Type Department Care Team ([facility] st Contact Info) Description 09/30/2024 Telephone C [facility] MED & PEDS [address] [place], [place] [phone] Jd Cordova MD [address] [place] [address] Nurse Triage Social History Tobacco Use Types Packs/Day Years [...] encounter Miscellaneous Notes * Telephone Encounter - Wen Morales RN - 09/30/2024 3:08 PM EDT Discussed with Director of Clinical Excellence Arielle and charlie to use Huddle slot. Call to pt. Spoke with Jazmin who agrees to appt as scheduled. Future Appointments Date Time Provider Department Center 10/01/2024 3:45 PM Alisia Francois MD [facility] MED [facility] Insurance verified as active per Real Time Eligibility in [facility]. * Telephone Encounter - Wen Morales RN - 09/30/2024 12:54 PM EDT Call returned to Yuni Dhillon to triage below. Reports having elevated HR readings x 1 week.Vitals 09/30/24: 121/82 HR 113 09/29/24: 115/80 HR 102 09/28/24: 114/74 HR 94 09/27/24: 135/80 HR 105 Staff member denies any PETERSON, chest tightness or dizziness. No swelling. No feelings of heart racing.NO hx of hyperthyroidism. No diuretic. Patient forgot to mention to PCP during telehealth visit yesterday. NO appts in [facility] that can be offered. Attempted to see if able to use blocked slot for team provider Dr. Francois but no response. Gracy advised that can have pt seek WIC at [facility] for evaluation . Prefers scheduled appt. Advised will call back with appt if able to utilize slot. Protocol Used: Heart Rate and Heartbeat Questions (Adult) Protocol-Based Disposition: See in Office or Video Visit within 3 Days Positive Triage Question: * Palpitations and no improvement after following Care Advice * All higher-acuity triage questions were negative Care Advice Discussed: * Reassurance and Education - Palpitations and Extra Heartbeats * Avoid Caffeine * Reasons To Call Back - Chest pain, lightheadedness or difficulty breathing occurs - Heart beating over 140 beats / minute - You become worse * Telephone Encounter - Joaquina Chang - 09/30/2024 12:47 PM EDT Symptom: Heartbeat Symptoms (Fast, Slow, or Irregular) Outcome: Schedule a same-day appointment or talk to a nurse or provider today Reason: Caller denied all higher acuity questions The caller accepted this outcome. Tc from Gracy with pt custodial requesting appointment. Gracy reported pt has had accelerated pulse for about a week. No other symptoms. Contact [facility] at [phone] documented in this encounter Plan of Treatment Not on file documented as of this encounter Visit Diagnoses Not on filedocumented in this encounter Care Teams Upper Cutter Out Relationship Specialty Start Date End Date Jd Cordova MD [address] [place] [address] PCP - General Internal Medicine 06/30/19 documented as of this encounter
--- OUTSIDE RECORDS SUMMARY | 2024-10-01 16:23 | XMS_ITS | Encounter Summary ---
Author Organization [employer] Address [address] [facility] 7 [place] [address] Care Team Providers Care Unified Communications Architect Name Role Phone Jd Cordova MD Primary Care Prov ider Reason for Visit * Reason Onset Date Comments Durable Medical Equipment 04/25/2023 Encounter Details Date Type Department Care Team (Late st Contact Info) Description 04/25/2023 Telephone [facility] MEDICINE [address] [place] [address] Jd Cordova MD [address] [place] [address] Durable Medical Equipment Social History Tobacco Use [...] - 04/25/2023 10:48 AM EST Tc from [facility] requesting DME. Diabetics shoes To be send [employer] Any questions contact [facility] [phone] documented in this encounter Plan of Treatment Not on file documented as of this encounter Visit Diagnoses Not on filedocumented in this encounter Care Teams Unified Communications Architect Relationship Specialty Start Date End Date Jd Cordova MD [address] [place] [address] PCP - General Internal Medicine 06/30/19 documented as of this encounter
--- OUTSIDE RECORDS SUMMARY | 2024-10-01 16:23 | XMS_ITS | Encounter Summary ---
Author Organization [employer] Address [address] [facility] 7 [place] [address] Care Team Providers Care Service Center Coordinator Name Role Phone Jd Cordova MD Primary Care Prov ider Reason for Visit * Reason Onset Date Comments Med Refill 05/03/2023 Encounter Details Date Type Department Care Team (Late st Contact Info) Description 05/03/2023 Telephone [facility] MEDICINE [address] [place] [address] Jd Cordova MD [address] [place] [address] Med Refill Social History Tobacco Use Types [...] 05/03/2023 11:26 AM EST Tc from patients foster care case manager calling to request a new script for GNP Norma Sharma [place] 31G X 5 MM misc stated needs to say 4 times shayy please clarify. documented in this encounter Plan of Treatment Not on file documented as of this encounter Visit Diagnoses Not on filedocumented in this encounter Care Teams Service Center Coordinator Relationship Specialty Start Date End Date Jd Cordova MD [address] [place] [address] PCP - General Internal Medicine 06/30/19 documented as of this encounter
--- OUTSIDE RECORDS SUMMARY | 2024-10-01 16:23 | XMS_ITS | Encounter Summary ---
Author Organization [employer] Address [address] [place] [address] 7 [place] [address] Care Team Providers Care Yard Hostler Name Role Phone Jd Cordova MD Primary Care Prov ider Encounter Details Date Type Department Care Team (Late st Contact Info) Description 06/25/2023 Orders Only [facility] CHC MED & PEDS [address] [place], [place] [phone] Jd Cordova MD [address] [place] [address] Type 2 diabetes mellitus without complication, with [...] Primary documented in this encounter Care Teams Yard Hostler Relationship Specialty Start Date End Date Jd Cordova MD [address] [place] [address] PCP - General Internal Medicine 06/30/19 documented as of this encounter
--- OUTSIDE RECORDS SUMMARY | 2024-10-01 16:23 | XMS_ITS | Encounter Summary ---
Author Organization [employer] Address [address] [facility] 7[address] [place] [address] Care Team Providers Care Crop Setting Out Machine Operator Name Role Phone Jd Cordova MD Primary Care Prov ider Encounter Details Date Type Department Care Team (Latest Contact Info) Description 10/01/2024 Travel Social History Tobacco Use Types Packs/Day [...] on filedocumented in this encounter Care Teams Crop Setting Out Machine Operator Relationship Specialty Start Date End Date Jd Cordova MD [address] [place] [address] PCP - General Internal Medicine 06/30/19 documented as of this encounter
--- OUTSIDE RECORDS SUMMARY | 2024-10-01 16:23 | XMS_ITS | Encounter Summary ---
Author Organization [employer] Address [address] [place] [address] [address], [place] [address] Care Team Providers Care Airplane Cleaner Name Role Phone Jd Cordova MD Primary Care Prov ider Reason for Visit * Reason Onset Date Comments Referral 05/23/2023 Encounter Details Date Type Department Care Team ([facility] st Contact Info) Description 05/23/2023 Telephone C [facility] MED & PEDS [address] [place], [place] [phone] Jd Cordova MD [address] [place] [address] Referral Social History Tobacco Use Types Packs/Day [...] - 05/23/2023 9:53 AM EST Tc from [facility] regarding referral. Location: Dr Lopez's office [facility] [address] Date: 06/15/22 Time: N/A Fax: N/A Specialty: Pediatry (Renewal of Referral ) documented in this encounter Plan of Treatment Not on file documented as of this encounter Visit Diagnoses Not on filedocumented in this encounter Care Teams Airplane Cleaner Relationship Specialty Start Date End Date Jd Cordova MD [address] [place] [address] PCP - General Internal Medicine 06/30/19 documented as of this encounter
--- OUTSIDE RECORDS SUMMARY | 2024-10-01 16:23 | XMS_ITS | Encounter Summary ---
Author Organization [employer] Address [address] [place] [address] 7 [place] [address] Care Team Providers Care Wholesale Agronomist Name Role Phone Jd Cordova MD Primary Care Prov ider Reason for Referral * Cardiology (Routine) - Pending Review Specialty Diagnoses / Procedures Referred By Contnaif t Referred To Contact Cardiology Diagnoses Tachycardia Procedures Holter monitor - 48 hour Alisia Francois MD [address] [place] [address] Phone: tel: fax: Referral ID Status Reason Start Date Expiration Date V isits Requested Visits Authorized [id number] Pending Review 10/01/2024 10/01/2025 1 1 Reason for Visit * Reason Comments Rapid Heart Rate Encounter Details Date Type Department Care Team ([facility] st Contact Info) Description 10/01/2024 3:45 PM EDT Office Visit [facility] CHC MED & PEDS [address] [place] [address] Alisia Francois MD [address] [place] [address] Type 2 diabetes mellitus with hyperglycemia, with long-term current use of insulin ([facility]) (Primary Dx); Tachycardia; Candidiasis, intertrigo Social History Tobacco Use Types Packs/Day Years Used Date Smoking Tobacco: Former Cigarettes Smokeless Tobacco: Never Comments No Sex and Gender Information Value Date Recorded Sex Assigned at Female 03/19/2022 10:25 AM EDT Legal Sex Female 10:25 AM EDT Gender Identity Female 03/19/2022 10:25 AM EDT Sexual Orientation Choose not to disclose 2021 10:25 AM EDT documented as of this encounter Last Filed Vital Signs Vital Sign Reading Time Taken Comments Blood Pressure 144/79 10/01/2024 3:33 PM EDT Pulse 98 10/01/2024 3:33 PM EDT Temperature 36.7 ??C (98 ??F) 10/01/2024 3:33 PM EDT Respiratory Rate 20 10/01/2024 3:33 PM EDT Oxygen Saturation 98% 10/01/2024 3:33 PM EDT Inhaled Oxygen Concentration - - Weight 122 kg (270 lb) 10/01/2024 3:33 PM EDT Height 160 cm (5' 3 ) 10/01/2024 3:33 PM EDT Body Mass Index 47.83 10/01/2024 3:33 PM EDT documented in this encounter Plan of Treatment Scheduled Orders Name Type Priority Associated Diagnoses Orde r Schedule CBC auto differential Lab Routine Tachycardia Expected: 10/01/2024 (Approximate), Expires: 10/01/2025 Basic Metabolic Panel Lab Routine Tachycardia Expected: 10/01/2024 (Approximate), Expires: 10/01/2025 TSH W/Reflex to FT4 Lab Routine Tachycardia Expected: 10/01/2024 (Approximate), Expires: 10/01/2025 Holter monitor - 48 hour Cardiac Services Routine Tachycardia Expected: 10/01/2024 (Approximate), Expires: 10/01/2026 documented as of this encounter Procedures Procedure Name Priority Date/Time Associated Diagnosis Comments POCT GLYCATED HEMOGLOBIN, TOTAL Routine 10/01/2024 4:20 PM EDT Type 2 diabetes mellitus with hyperglycemia, with long-term current use of insulin ([facility]) POCT GLUCOSE Routine 10/01/2024 4:20 PM EDT Type 2 diabetes mellitus with hyperglycemia, with long-term current use of insulin ([facility]) ECG 12-LEAD Routine 10/01/2024 4:18 PM EDT Tachycardia documented in this encounter Results * POCT HGB A1C (10/01/2024 4:20 PM EDT) Hemoglobin A1C 5.6 4.0 - 6.0 % QC Media Lot # [id number] Lot# Expiration Date Blood 10/01/2024 4:20 PM EDT Alisia Francois MD POINT OF CARE TEST ENTER/ED IT ORDERABLES Final Result * POCT Glucose (10/01/2024 4:20 PM EDT) Glucose Blood, POC 190 60 - 200 mg/dL QC Media Lot # [id number] Lot# Expiration Date ,025 Comment:random Blood Capillary blood specimen / Unknown 10/01/2024 4:20 PM EDT Alisia Francois MD POINT OF CARE TEST ENTER/ED IT ORDERABLES Final Result * ECG 12 lead (10/01/2024 4:18 PM EDT) Narrative Alisia Francois MD - 10/01/2024 4:18 PM EDT Heart rate 88 bpm. ??[place] 63 degrees. ??Sinus arrhythmia. ??No sign of left atrial enlargement or right atrial enlargement. ??No sign of hypertrophy. ?? No ST elevation or ST depression. ??Normal variant ECG. Alisia Francois MD ECG ORDERABLES Final Resul t documented in this encounter Visit Diagnoses Diagnosis Type 2 diabetes mellitus with hyperglycemia, with long-term current use of insulin ([facility])- Primary Tachycardia Unspecified tachycardia Candidiasis, intertrigo Candidiasis of skin and nails documented in this encounter Care Teams Wholesale Agronomist Relationship Specialty Start Date End Date Jd Cordova MD [address] [place] [address] PCP - General Internal Medicine 06/30/19 documented as of this encounter
--- OUTSIDE RECORDS SUMMARY | 2024-10-01 16:23 | XMS_ITS | Encounter Summary ---
Author Organization [employer] Address [address] [facility] 7t [place] [address] Care Team Providers Care Electric Furnace Operator Name Role Phone Jd Cordova MD Primary Care Prov ider Encounter Details Date Type Department Care Team ([facility] st Contact Info) Description 07/10/2023 Orders Only [facility] CHC MED & PEDS [address] [place], [place] [phone] Jd Cordova MD [address] [place] [address] Social History Tobacco Use Types Packs/Day Years [...] on filedocumented in this encounter Care Teams Electric Furnace Operator Relationship Specialty Start Date End Date Jd Cordova MD [address] [place] [address] PCP - General Internal Medicine 06/30/19 documented as of this encounter
--- OUTSIDE RECORDS SUMMARY | 2024-10-01 16:23 | XMS_ITS | Encounter Summary ---
Author Organization [employer] Address [address] [place] [address] 7 [place] [address] Care Team Providers Care Ship Pilot Name Role Phone Jd Cordova MD Primary Care Prov ider Reason for Visit * Reason Onset Date Comments Med Refill 05/01/2023 Encounter Details Date Type Department Care Team ([facility] st Contact Info) Description 05/01/2023 Telephone [facility] MED & PEDS [address] [place], [place] [phone] Jd Cordova MD [address] [place] [address] Med Refill Social History Tobacco Use Types [...] PM EST Tc from Jazmin working with [employer] calling to request 4 times daily and needles for Lantus SoloStar 100 UNIT/ML pen. If any questions contact Jazmin at [phone]. documented in this encounter Plan of Treatment Not on file documented as of this encounter Visit Diagnoses Not on filedocumented in this encounter Care Teams Ship Pilot Relationship Specialty Start Date End Date Jd Cordova MD [address] [place] [address] PCP - General Internal Medicine 06/30/19 documented as of this encounter
--- OUTSIDE RECORDS SUMMARY | 2024-10-01 16:23 | XMS_ITS | Encounter Summary ---
Author Organization [employer] Address [address] [place] [address] [place] [address] Care Team Providers Care Health Promotion Specialist Name Role Phone dJ Cordova MD Primary Care Prov ider Reason for Visit * Reason Onset Date Comments Medication Question 08/08/2023 Encounter Details Date Type Department Care Team ([facility] st Contact Info) Description 08/08/2023 Telephone [facility] CHC MED & PEDS [address] [place], [place] [phone] Jd Cordova MD [address] [place] [address] Medication Question Social History Tobacco Use Types [...] filedocumented in this encounter Care Teams Health Promotion Specialist Relationship Specialty Start Date End Date Jd Cordova MD [address] [place] [address] PCP - General Internal Medicine 06/30/19 documented as of this encounter
--- OUTSIDE RECORDS SUMMARY | 2024-10-01 16:23 | XMS_ITS | Encounter Summary ---
Author Organization [employer] Address [address] [facility] [place] [address] Care Team Providers Care Pediatric Dentist Name Role Phone Jd Cordova MD Primary Care Prov ider Reason for Referral * Imaging (Routine) - Authorized Specialty Diagnoses / Procedures Referred By Contac t Referred To Contact Radiology Diagnoses Type 2 diabetes mellitus without complication, with long-term current use of insulin (CMS/HCC) Procedures BI Mammogram Screening Tomosynthesis Bilateral Jd Cordova MD [address] [place] [address] Phone: tel: fax: [address] Phone: tel: fax: Referral ID Status Reason Start Date Expiration Date V isits Requested Visits Authorized [id number] Authorized 09/29/2024 09/29/2025 1 1 Encounter Details Date Type Department Care Team (Late st Contact Info) Description 09/29/2024 10:15 AM EDT Telemedicine [facility] MED & PEDS [address] [place] [address] Jd Cordova MD [address] [place] [address] Screening for colon cancer (Primary Dx); Essential hypertension; Type 2 diabetes mellitus without complication, with long-term current use of insulin (CMS/HCC) Social History Tobacco Use Types Packs/Day Years [...] Sign Reading Time Taken Comments Blood Pressure 115/80 09/29/2024 10:12 AM EDT Pulse 102 09/29/2024 10:12 AM EDT Temperature - - Respiratory Rate - - Oxygen Saturation - - Inhaled Oxygen Concentration - - Weight - - Height - - Body Mass Index - - documented in this encounter Progress Notes * Jd Guevara MD - 09/29/2024 10:15 AM EDT Subjective Patient ID: Yuni Dhillon is a 48 y.o. female who presents for No chief complaint on file.. Diabetes She presents for her follow-up diabetic visit. She has type 2 diabetes mellitus. Her disease coursehas been stable. Pertinent negatives for diabetes include no fatigue, no foot paresthesias, no footulcerations, no polydipsia, no polyphagia and no polyuria. Review of Systems Constitutional: Negative for fatigue. Endocrine: Negative for polydipsia, polyphagia and polyuria. Objective Physical Exam Neurological: General: No focal deficit present. Mental Status: She is oriented to person, place, and time. Psychiatric: Mood and Affect: Mood normal. Behavior: Behavior normal. Assessment/Plan Problem List Items Addressed This Visit Type 2 diabetes mellitus without complication, with long-term current use of insulin ([facility]) Controlled, last A1c 7.1, no changes will be made, keep low carb/no sugar diet, Relevant Orders BI Mammogram Screening Tomosynthesis Bilateral CBC auto differential Comprehensive Metabolic Panel Lipid Panel, Standard Screening for colon cancer - Primary Relevant Orders Cologuard?? colon cancer screening Essential hypertension Controlled, keep low sodium diet and exercise as tolerated, keep bp log, target <130/80 documented in this encounter Miscellaneous Notes * Assessment & Plan Note - Jd Guevara MD - 09/29/2024 10:50 AM EDTAssociated Problem(s): Type 2 diabetes mellitus without complication, with long-term current use ofinsulin (CMS/HCC) Controlled, last A1c 7.1, no changes will be made, keep low carb/no sugar diet, * Assessment & Plan Note - Jd Guevara MD - 09/29/2024 10:43 AM EDTAssociated Problem(s): Essential hypertension Controlled, keep low sodium diet and exercise as tolerated, keep bp log, target <130/80 documented in this encounter Plan of Treatment Scheduled Orders Name Type Priority Associated Diagnoses Orde r Schedule Cologuard?? colon cancer screening Lab Routine Screening for colon cancer Ordered: 09/29/2024 BI Mammogram Screening Tomosynthesis Bilateral Imaging Routine Type 2 diabetes mellitus without complication, with long-term current use of insulin (CMS/HCC) Expected: 09/29/2024, Expires: 11/29/2025 CBC auto differential Lab Routine Type 2 diabetes mellitus without complication, with long-term current use of insulin (CMS/HCC) Expected: 09/29/2024 (Approximate), Expires: 09/29/2025 Comprehensive Metabolic Panel Lab Routine Type 2 diabetes mellitus without complication, with long-term current use of insulin (CMS/HCC) Expected: 09/29/2024 (Approximate), Expires: 09/29/2025 Lipid Panel, Standard Lab Routine Type 2 diabetes mellitus without complication, with long-term current use of insulin (CMS/HCC) Expected: 09/29/2024 (Approximate), Expires: 09/29/2025 documented as of this encounter Visit Diagnoses Diagnosis Screening for colon cancer- Primary Special screening for malignant neoplasms, colon Essential hypertension Unspecified essential hypertension Type 2 diabetes mellitus without complication, with long-term current use of insulin (CMS/HCC) documented in this encounter Care Teams Pediatric Dentist Relationship Specialty Start Date End Date Jd Cordova MD [address] [place] [address] PCP - General Internal Medicine 06/30/19 documented as of this encounter
--- OUTSIDE RECORDS SUMMARY | 2024-10-01 16:23 | XMS_ITS | Encounter Summary ---
Author Organization [employer] Address [address] [facility] 7 [place] [address] Care Team Providers Care It Security Manager Name Role Phone Jd Cordova MD Primary Care Prov ider Reason for Visit * Reason Onset Date Comments Med Refill 05/03/2023 Encounter Details Date Type Department Care Team ([facility] st Contact Info) Description 05/03/2023 Telephone [facility] MED[facility]INE [address] [place] [address] Jd Cordvoa MD [address] [place] [address] Med Refill Social History Tobacco Use Types [...] requesting med refill on; GNP UltiCare Pen Trout 31G X 5 MM misc (4 times a day) due to insurance. documented in this encounter Plan of Treatment Not on file documented as of this encounter Visit Diagnoses Not on filedocumented in this encounter Care Teams It Security Manager Relationship Specialty Start Date End Date Jd Cordova MD [address] [place] [address] PCP - General Internal Medicine 06/30/19 documented as of this encounter
--- OUTSIDE RECORDS SUMMARY | 2024-10-01 16:23 | XMS_ITS | Encounter Summary ---
Author Organization [employer] Address [address] [place] [address] [address], [place] [address] Care Team Providers Care Starch Cooker Name Role Phone Jd Cordova MD Primary Care Prov ider Encounter Details Date Type Department Care Team (Late st Contact Info) Description 02/20/2023 Abstract [facility] [address] [place] [address] Jd Cordova MD [address] [place], [place] [phone] Social History Tobacco Use Types Packs/Day Years [...] on filedocumented in this encounter Care Teams Starch Cooker Relationship Specialty Start Date End Date Jd Cordova MD [address] [place] [address] PCP - General Internal Medicine 06/30/19 documented as of this encounter
--- OUTSIDE RECORDS SUMMARY | 2024-10-01 16:24 | XMS_ITS | Clinical Summary ---
Author Organization [employer] Address [address] [facility] 7[address] [place] [address] Care Team Providers Care Bulb Sorter Name Role Phone Jd Cordova MD Primary [...] Take 1 tablet by mouth twice daily 023 Active sertraline (Zoloft) 50 MG tablet Take 1 tablet by mouth once daily 023 Active insulin lispro (HumaLOG) 100 UNIT/ML injection Inject under the skin per sliding scale up to 27 units three times a day with meals. Max 85 units/day 023 Active GNP UltiCare Pen [place] 31G X 5 MM misc Use as [...] under the skin every 7 (seven) days. 024 Active ascorbic acid (Vitamin C) 500 MG [...] monitoring BID 100 each 3 025 Active nystatin (Nystop) 458352 UNIT/GM powderIndicatio ns:Candidiasis, intertrigo Apply topically 2 times daily. 60 g 2 025 2025 Active FREESTYLE LITE test strip 024 2024 [...] (03/02/2023 10:28 AM EDT): Patient was at [facility] due to behavioral changes and hallucinations. Depakote [...] use of insulin 06/21/2022 Assessment & Plan (09/29/2024 10:50 AM EDT): Controlled, last A1c 7.1, no changes will be made, keep low carb/no sugar diet, Assessment & Plan (07/01/2024 10:40 AM EST): [...] 03/01/2023 Essential hypertension 06/16/2018 Assessment & Plan (09/29/2024 10:43 AM EDT): Controlled, keep low sodium diet and exercise as tolerated, keep bp log, target <130/80 Assessment & Plan (09/25/2023 3:27 PM EDT): [...] Encounters Date Type Department Care Team Description 10/01/2024 3:45 PM EDT Office Visit [facility] MED & PEDS [address] [place] [address] Alisia Francois MD Type 2 diabetes mellitus with hyperglycemia, with long-term current use of insulin (CMS/HCC) (Primary Dx); Tachycardia; Candidiasis, intertrigo 10/01/2024 Travel 09/30/2024 Telephone [facility] MED & PEDS [address] [place] [address] Jd Cordova MD Nurse Triage 09/29/2024 10:15 AM EDT Telemedicine [facility] MED & PEDS [address] [place] [address] Jd Cordova MD Screening for colon cancer (Primary Dx); Essential hypertension; Type 2 diabetes mellitus without complication, with long-term current use of insulin (CMS/HCC) 09/28/2024 Travel 09/10/2024 Refill [facility]INE [address] [place] [address] Jd Cordova MD 09/04/2024 Refill [facility] [address] [place], [place] [phone] Jd Cordova MD Iron deficiency anemia, unspecified iron deficiency anemia type 08/04/2024 Refill [facility] [address] [place] [address] Jd Cordova MD 07/31/2024 Population Health Risk Score [facility] () Department [address] [place] [phone] Provider, Population Health Generic from Last 3 Months Immunizations Immunization Administration Dates Next Due Hep B, adult [...] Mass Index 47.83 10/01/2024 3:33 PM EDT Plan of Treatment Health Maintenance Due Date Last Done Comments [...] 09/24/2024 09/25/2023, 09/25/2023, 09/25/2023, Additional history exists Zoster Vaccines (1 of 2) 2024 Diabetes: Hemoglobin A1C 01/01/2025 025, 07/01/2024, 12/24/2023, Additional history exists Eye Exam 04/04/2025 04/04/2023, 03/20, 04/04/2023, Additional [...] patient's age to complete this topic Meningococcal B Vaccine Aged Out No l onger eligible based on patient's age to complete this topic Meningococcal Vaccine Aged Out No jaamal derrell eligible based on patient's age to [...] hyperglycemia, with long-term current use of insulin ([facility]) POCT GLUCOSE Routine 10/01/2024 4:20 PM EDT Type 2 diabetes mellitus with hyperglycemia, with long-term current use of insulin ([facility]) ECG 12-LEAD Routine 10/01/2024 4:18 PM EDT Tachycardia BI MAMMOGRAM SCREENING TOMOSYNTHESIS BILATERAL Routine 07/12/2022 10:15 AM EST FECAL GLOBIN BY IMMUNOCHEMISTRY Routine 07/01/2022 12:00 AM EST HEPATITIS C AB W/REFL TO HCV RNA, QN, PCR Routine 06/26/2022 10:02 AM EST Type 2 diabetes mellitus without complication, with long-term current use of insulin ([facility]) Primary hypertension HIV 1 RNA, QN PCR W/RFL ANTONIO (RTI,PI,INTEGRASE) Routine 06/26/2022 10:02 AM EST Type 2 diabetes mellitus without complication, with long-term current use of insulin ([facility]) Primary hypertension LIPID PANEL, STANDARD Routine 06/26/2022 10:02 AM EST Type 2 diabetes mellitus without complication, with long-term current use of insulin ([facility]) Primary hypertension HPV MRNA E6/E7 Routine 12/06/2020 10:21 AM EDT THINPREP PAP Routine 12/06/2020 10:21 AM EDT ZZZ HISTORICAL MICROALBUMIN, RANDOM Routine 07/09/2019 12:04 PM EST from Last 3 Months or Most Recently Relevant to Health Maintenance Results * POCT HGB A1C (10/01/2024 4:20 PM EDT) Hemoglobin A1C 5.6 4.0 - 6.0 % QC Media Lot # [id number] Lot# Expiration Date , Blood 10/01/2024 4:20 PM EDT Alisia Francois MD POINT OF CARE TEST ENTER/ED IT ORDERABLES Final Result * POCT Glucose (10/01/2024 4:20 PM EDT) Glucose Blood, POC 190 60 - 200 mg/dL QC Media Lot # [id number] Lot# Expiration Date ,025 Comment:random Blood Capillary blood specimen / Unknown 10/01/2024 4:20 PM EDT us Alisia Francois MD POINT OF CARE TEST ENTER/ED IT ORDERABLES Final Result * ECG 12 lead (10/01/2024 4:18 PM EDT) Narrative Alisia Francois MD - 10/01/2024 4:18 PM EDT Heart rate 88 bpm. ??Bartlett 63 degrees. ??Sinus arrhythmia. ??No sign of left atrial enlargement or right atrial enlargement. ??No sign of hypertrophy. ?? No ST elevation or ST depression. ??Normal variant ECG. us Alisia Francois MD ECG ORDERABLES Final Resul t * BI Mammogram Screening Tomosynthesis Bilateral (07/12/2022 10:15 AM EST) Anatomical Region Laterality Modality Breast Bilateral Mammography 07/12/2022 10:1 5 AM EST Narrative 07/13/2022 2:26 PM EST ? [facility] [place] ? [address] ?[place] [address] ? Mammography Report ? Signed ? Patient: HequocYuni ?MR#: [id number] ?? [id number] ? : 1975 ?Acct:[id number] ? Age/Sex: 46 / F ?ADM Date: 07/12/22 ? Loc: HO.MAMMO ? Attending Dr: Gregorio Patel CNM ? Ordering Physician: GREGORIO PATEL CNM ?Results: 1 ?? Negative ? Date of Service: 07/12/22 ?Follow Up: 1 Year From Orig ?? inal Mammogram ? Procedure(s): MM tomosynthesis screening BI ?? Accession Number(s): [id number] ? cc: GREGORIO PATEL CNM ? EXAMINATION: ?? MM SCREENING DIGITAL BREAST [...] signed by Stephen Vivas MD in OV> ?07/13/22 1423 ? DD/ 1015 ? TD/TT: ? Bonsai Tender: DILLARD ? Procedure Note Venkat, Image - 07/13/2022 [facility] [address] [place] [address] Dr. [place], [place] [address] Mammography Report Signed Patient: Magdalena Dhillon#: [id number] : 1975Acct:[id number] Age/Sex: 46 / FADM Date: 07/12/22 Loc: HO.MAMMO Attending Dr: Gregorio Patel [facility] Ordering Physician: GREGORIO PATELesults: 1 Negative Date of Service: 07/12/22Follow Up: 1 Year From Orig inal Mammogram Procedure(s): MM tomosynthesis screening BI Accession Number(s): [id number] cc: GREGORIO PATEL CNM EXAMINATION: MM SCREENING [...] in OV> 07/13/22 1423 DD/ 1015 TD/TT: Bonsai Tender: DILLARD [facility] External Provider IMG BI PROCEDURES Final Result * Fecal Globin by Immunochemistry (07/01/2022 12:00 AM EST) Fecal Globin By Immunochemistry SEE NOTE [facility] Comment: ??FECAL GLOBIN BY IMMUNOCHEMISTRY ?Micro Number: ?[id number] ??Test Status: ? Final ??Specimen Source: ?? Insure () fobt test card ??Specimen Quality: ??Adequate ??Fecal Globin: ?Not Detected 07/01/2022 07/10/2022 8:5 2 PM EST Narrative [facility] - 07/11/2022 8:49 AM EST FASTING: UNKNOWN [facility] Lab External Provider LAB BODY FLUIDS AND STOOLS ORDERABLES Final Result Performing Organization Address [facility] Co de Phone Number [facility] [address] [place] [address], [place] [address] [facility] [address] [place] [address], (Nl2) [place] [address] * HIV-1 RNA, Quantitative, Real-Time PCR with Reflex to Genotype (RTI, PI, Integrase) (06/26/2022 10:02 AM EST) Pathologist [facility] [place] [facility] HIV 1 RNA, QN PCR NOT DETECTED copies/mL [facility], HIV 1 RNA, QN PCR NOT DETECTED Log copies/mL [facility], Comment: REFERENCE RANGE: NOT DETECTED copies/mL ?NOT DETECTED ??Log copies/mL This test was performed using Real-Time Polymerase Chain Reaction. Reportable range is 20 to 10,000,000 copies/mL (1.30-7.00 Log copies/mL). 06/26/2022 10:0 2 AM EST 06/26/2022 10:02 AM EST Narrative [facility] - 06/29/2022 9:27 PM EST FASTING:YES FASTING: YES Jd Guevara MD LAB BLOOD ORDERABL ES Final Result Performing Organization Address City/[facility]/ZIP Co de Phone Number [address], [place] [address] [facility], [address] [place] [address] * Hepatitis C Antibody with Reflex to HCV, RNA, Quantitative, Real-Time PCR (06/26/2022 10:02 AM EST) [facility] Hepatitis C Antibody NON-REACT PENNIE NON-REACT PENNIE [facility] Index <0.02 <1.00 [facility] Comment: HCV antibody was non-reactive. There is no laboratory evidence of HCV infection. In most cases, no further action is required. However, if recent HCV exposure is suspected, a test for HCV RNA (test code 74650) is suggested. For additional information please refer to http://[employer]/faq/KDC73t2 (This link is being provided for informational/ educational purposes only.) Blood Venous blood specimen / Unknown 06/26/2022 10:02 AM EST 06/26/2022 10:02 AM EST Narrative [facility] - 06/29/2022 9:27 PM EST FASTING:YES FASTING: YES Jd Guevara MD LAB BLOOD ORDERABL ES Final Result [address], [place] [address] [facility] [place] [address] [facility], (Nl2) [place] [address] * (ABNORMAL) Lipid Panel, Standard (06/26/2022 10:02 AM EST) [facility] Cholesterol, Total 127 <200 mg/dL [facility] HDL Cholesterol 36(L) > OR = 50 mg/dL [facility] Triglycerides 114 <150 mg/dL [facility] LDL Cholesterol 71 mg/dL (calc) [facility] [place] [employer] Comment: Reference range: <100 Desirable range <100 mg/dL for primary prevention; ?? <70 mg/dL for patients with CHD or diabetic patients with > or = 2 CHD risk factors. LDL-C is now calculated using the Darion-Clarissa calculation, which is a validated novel method providing better accuracy than the Friedewald equation in the estimation of LDL-C. Darion GOER et al. RIKA. 2013;310(19): 3562-1593 (http://education.Hiptype/faq/AWH542) Chol/HDLC Ratio 3.5 <5.0 (calc) [facility] [place] [facility] Non-HDL Cholesterol 91 <130 mg/dL (calc) [facility] [place] [facility] Comment: For patients with diabetes plus 1 major ASCVD risk factor, treating to a non-HDL-C goal of <100 mg/dL (LDL-C of <70 mg/dL) is considered a therapeutic option. Blood Venous blood specimen / Unknown 06/26/2022 10:02 AM EST 06/26/2022 10:02 AM EST Narrative [facility] - 06/29/2022 9:27 PM EST FASTING:YES FASTING: YES Jd Guevara MD LAB BLOOD ORDERABL ES Final Result [address], [place] [address] [facility] [place] [employer] [address] [place] [address], (Nl2) [place] [address] * THINPREP PAP (12/06/2020 10:21 AM EDT) Clinical Information: None given [facility] COMMENT SEE COMMENT [facility]OUND[facility] ON [...] historic and ?? current clinical information. ?? Asset Card Clerk : SEE COMMENT [facility] Comment: HJP, CT(ASCP) CT screening location: [address] ??[address] Interpretation/R esult: Negative for intraepithelial lesion or malignancy. [facility] LMP: 11/11/2020 [facility] Prev. BX: NONE GIVEN [facility]OUND[facility] N [facility] SYSTEM Prev. PAP: NONE GIVEN [facility]OUND[facility] ON LAB SYSTEM SOURCE: None given [facility] Statement Of Adequacy: SEE COMMENT [facility] Comment: Satisfactory for evaluation. Endocervical/transformation zone component absent. 12/06/2020 10:2 1 AM EDT Gregorio Theodora [facility] LAB PATHOLOGY ORDERABLES Final Result Performing Organization Address [facility] de Phone Number [facility] [address] * HPV mRNA E6/E7 (12/06/2020 10:21 AM EDT) HPV nRNA E6/E7 Not Detected Not Detected [facility] Comment: Methodology: Docket Specialist-Mediated Amplification This assay detects E6/E7 viral messenger RNA (mRNA) from 14 high-risk HPV types (16,18,31,33,35,39,45,51,52,56,58,59,66,68). ? The analytical performance characteristics of this assay have been determined by [facility]. The modifications have not been cleared or approved by the FDA. This assay has been validated pursuant to the CLIA regulations and is used for clinical purposes. ?? For additional information, please refer to http://education.[employer]/faq/JTE788a7 (This link if provided for information/ educational purposes only.) 12/06/2020 10:2 1 AM EDT Gregorio Patel [facility] LAB BLOOD ORDERABLES Zoe l Result Performing Organization Address [facility] de Phone Number [facility] [address] * MICROALBUMIN, RANDOM (07/09/2019 12:04 PM EST) CREATININE, RANDOM URINE 7.35 MG/DL [facility] MICALB/CRE RATIO RANDOM URINE Test not performed ug/mg cr [facility] Comment: Unable to calculate albumin/creatinine ratio due to low microalbumin or creatinine result. MICROALBUMIN, RANDOM URINE < 5.0 MG/L [facility] 07/09/2019 12:0 4 PM EST Jd Guevara MD HISTORICAL/NON ORD ERABLE LABS Final Result [facility] [address] [place] [address], from Last 3 Months or Most Recently Relevant to Health Maintenance Insurance [employer] C3 Care Teams Bulb Sorter Relationship Specialty Start Date End Date Jd Cordova MD [address] [place] [address] PCP - General Internal Medicine 06/30/19
--- OUTSIDE RECORDS SUMMARY | 2024-10-01 16:24 | XMS_ITS | Encounter Summary ---
Author Organization [employer] Address [address] [facility] [address] [place] [address] Care Team Providers Care Direct Support Staff Name Role Phone Jd Cordova MD Primary Care Prov ider Reason for Visit * Reason Onset Date Comments Medication Question 09/26/2023 Encounter Details Date Type Department Care Team ([facility] st Contact Info) Description 09/26/2023 Telephone [facility] MEDICINE [address] [place] [address] Jd Cordova MD [address] [place], [place] [phone] Medication Question Social History Tobacco Use Types [...] - 09/26/2023 10:41 AM EDT Tc from [facility], staff at pt's care home, calling in regards to Senna-Gen 8.6 mg. Pt was prescribed Senna-Gen by psychiatrist but psychiatrist is no longer working in office and [facility] is requesting for pcp to sign medication for pt to continue taking it. If any questions you can contact [facility] at [phone]. documented in this encounter Plan of Treatment Not on file documented as of this encounter Visit Diagnoses Not on filedocumented in this encounter Care Teams Direct Support Staff Relationship Specialty Start Date End Date Jd Cordova MD [address] [place] [address] PCP - General Internal Medicine 06/30/19 documented as of this encounter
--- OUTSIDE RECORDS SUMMARY | 2024-10-01 16:24 | XMS_ITS | Encounter Summary ---
Author Organization [employer] Address [address] [facility] [address] [place] [address] Care Team Providers Care Engineering Surveyor Name Role Phone Jd Cordova MD Primary Care Prov ider Encounter Details Date Type Department Care Team ([facility] st Contact Info) Description 01/23/2024 Telephone [facility]S [address] [place], [place] [phone] Jd Cordova MD [address] [place], [place] [phone] Social History Tobacco Use Types Packs/Day Years [...] on filedocumented in this encounter Care Teams Engineering Surveyor Relationship Specialty Start Date End Date Jd Cordova MD [address] [place] [address] PCP - General Internal Medicine 06/30/19 documented as of this encounter
[2024-10-01 17:42] LABS: MANUAL DIFF FLAG NO
[2024-10-01 17:57] LABS: Basophils Percent Auto 0.2 % (0-2); Eosinophils Absolute Auto 0.1 X10*3/uL (0.0-0.4); Eosinophils Percent Auto 0.8 % (0-4); Hematocrit 37.8 % (37.0-47.0); Imm Gran Abs Auto 0.05 X10*3/uL (0.00-0.03); Imm Gran Pct Auto 0.4 % (0.0-0.4); Lymphocytes Absolute Auto 3.3 X10*3/uL (1.2-4.9); Lymphocytes Percent Auto 29.3 % (20-40); Mean Corpuscular HGB Conc 31.7 g/dl (31.0-35.0); Mean Corpuscular Hemoglobin 27.5 pg (27.0-33.0); Mean Corpuscular Volume 86.7 fL (80.0-98.0); Monocytes Absolute Auto 0.7 X10*3/uL (0.1-1.2); Monocytes Percent Auto 6.4 % (2-11); Neutrophils Absolute Auto 7.1 x10*3/uL (2.0-8.3); Neutrophils Percent Auto 62.9 % (45-73); Platelet Count 280 X10*3/uL (160-400); Red Blood Count 4.36 X10*6/uL (4.20-5.50); Red Cell Distribution Width 14.6 % (11.0-16.0); White Blood Count 11.2 X10*3/uL (4.8-10.8)
[2024-10-01 18:05] LABS: Alanine Aminotransferase 29 U/L (0-31); Albumin Level 3.6 g/dL (3.5-5.0); Alkaline Phosphatase 54 U/L (39-117); Anion Gap 13 (12-20); Aspartate Amino Transferase 33 U/L (5-31); Bilirubin Total 0.1 mg/dL (0.0-1.0); Blood Urea Nitrogen 12 mg/dL (9-16); Calcium 8.8 mg/dL (8.4-10.2); Carbon Dioxide 24 mmol/L (22-29); Chloride 110 mmol/L (96-108); Cholesterol 170 mg/dL (<200); Estimated Glomerular Filt Rate > 60; Glucose Random 134 mg/dL (60-115); HDL Cholesterol 34 mg/dL (>40); LDL Cholesterol Calculated 99 mg/dL (<100); Potassium 4.1 mmol/L (3.3-5.1); Sodium 143 mmol/L (135-145); Total Protein 6.1 g/dL (6.5-8.0); Triglycerides 189 mg/dL (<150)
[2024-10-01 18:20] LABS: TSH reflex Free T4 2.67 uIU/mL (0.32-4.0)
== END 2024-10-01 16:21 | disposition home or self-care (01) ==
LOC: HO.CHCLDS 16:20
PROVIDERS: Internal Medicine; Visit Provider Internal Medicine
DX: E11.9 Type 2 diabetes mellitus without complications (principal); R00.0 Tachycardia, unspecified; Z79.4 Long term (current) use of insulin
CPT/HCPCS: 36415; 80053; 80061; 84443; 85025

== ENCOUNTER 2024-10-19 09:17 | Emergency (ER) | payer MEDICAID, SELFPAY ==
[2024-10-19 09:29] VITALS: BP 136/70; PULSE 92; O2SAT 97
[2024-10-19 09:35] VITALS: BP 103/56; PULSE 81; RESP 16; TEMP 36.9; O2SAT 97; BMI 43.8
--- NOTE | 2024-10-19 10:05 | ED_ITS ---
HPI - General Adult General Chief complaint: General Medical Stated complaint: VOMITING,FLU SX FOR DAYS,FROM DAY PROG PER EMS Time Seen by Provider: 10/19/24 10:05 Source: patient and EMS Mode of arrival: EMS Limitations: no limitations History of Present Illness ED Provider: CHUNG HAWKINS PA-C HPI narrative: 48-year-old female with pmhx significant for type 2 diabetes and schizophrenia presents to the ED today via EMS from [facility] for evaluation of nausea, vomiting, diarrhea, and abdominal pain since yesterday. Reports 2-3 episodes of nonbloody loose stools and 7 episodes of nonbloody emesis since yesterday. Her abdominal pain began shortly after vomiting/ diarrhea and is localized to RLQ and LLQ. No radiation. Pain is currently 2-3/10. Reports eating kielbasa yesterday. Her roommate also consumed this and is asymptomatic. No other abnormal food consumption. Denies any hx of abdominal surgery. Denies documented fever, urinary symptoms, flank pain. She did not trial anything for pain/ vomiting/ diarrhea prior to arrival in ED. Related Data Home Medications ?Medication ?Instructions ?Recorded ?Confirmed ferrous sulfate 325 mg (65 mg 325 mg PO DAILY 03/07/22 09/12/24 iron) tablet metoprolol tartrate 25 mg tablet 1 tab PO BID 03/07/22 09/12/24 omeprazole 20 mg capsule,delayed 1 cap PO DAILY@0630 03/07/22 09/12/24 release docusate sodium 100 mg capsule 100 mg PO BID Constipation 04/21/22 09/12/24 (Colace) clozapine 100 mg tablet 100 mg PO QAM 12/01/23 09/12/24 clozapine 100 mg tablet 300 mg PO BEDTIME 12/01/23 09/12/24 clozapine 25 mg tablet 25 mg PO QAM 12/01/23 09/12/24 divalproex 500 mg tablet,extended 2,500 mg PO BEDTIME 12/01/23 09/12/24 release 24 hr lisinopril 10 mg tablet 10 mg PO DAILY 12/01/23 09/12/24 perphenazine 4 mg tablet 4 mg PO BID 12/01/23 09/12/24 sertraline 50 mg tablet 50 mg PO DAILY 12/01/23 09/12/24 sennosides 8.6 mg tablet (senna) 8.6 mg PO DAILY 06/08/24 09/12/24 dulaglutide 3 mg/0.5 mL 1.5 mg subcut WE 06/10/24 09/12/24 subcutaneous pen injector (Trulicity) guaifenesin 10 ml PO Q4H PRN Cough 09/12/24 09/12/24 Previous Rx's ?Medication ?Instructions ?Recorded insulin glargine 100 unit/mL 70 unit (0.7 mL) subcut BEDTIME #0 06/17/24 subcutaneous solution (Lantus mL U-100 Insulin) ondansetron 4 mg disintegrating 4 mg PO DAILY PRN nausea and 10/19/24 tablet vomiting 5 days #10 tabs Allergies Allergy/AdvReac Type Severity Reaction Status Date / Time Sulfa (Sulfonamide Allergy Intermediate PUFFY EYES Verified 09/12/24 15:32 Antibiotics) [SULFA (SULFONAMIDE ANTIBIOTICS)] Penicillins [PENICILLINS] Allergy Mild PT STATES Verified 09/12/24 15:32 NOTHING HAPPENS, ALLG LISTED ON TRANF SHEET acid Allergy Unknown Unknown Uncoded 10/19/24 09:39 Review of Systems 2 Review of Systems: Constitutional: No fever, chills, fatigue, night sweats, weight changes ENT/Mouth: No ear pain, hearing loss, nasal congestion, sinus pain, rhinorrhea, sore throat Eyes: No eye pain, swelling, redness, vision changes, discharge Cardio: No chest pain, palpitations, CYR, orthopnea, peripheral edema Pulm: No SOB, cough, sputum, wheezing, dyspnea, hemoptysis GI: No constipation, hematochezia, melena, +abd pain, +N/V, +diarrhea : No irregular bleeding, dysuria, frequency, urgency, hesitancy, hematuria, flank pain, urinary flow changes, urinary incontinence or retention MSK: No back pain, neck pain, joint pain, myalgias Skin: No lesions, rashes Neuro: No weakness, numbness, paresthesias, LOC, dizziness, headache Psych: No anxiety/panic, depression, SI/HI, AH/VH All other systems reviewed and are negative. [facility] Past Medical History Attestation statement: The following information was validated with the patient. Source: old records reviewed and nursing notes reviewed Medical History Acute psychosis Gram-positive bacteremia HTN (hypertension) Diabetes Social History Social History Household Members: Other Household Members Other:: long term Housing: Other Housing Other:: long term Do you presently have visiting nurse or other home services: No Alcohol intake: never Patient Tobacco Use Status: Current everyday Tobacco user Tobacco use type: Cigarette Cigarette Packs Per Day: 0.5 Cigarettes Per Day: 10.0 Years Smoked: 36 e-Cigarette/Vaping Use: Never Used Second Hand Smoke Exposure: Yes service: No Current occupational status: disabled Sexual orientation: Unable to collect Physical Exam ED Vital Signs: Vital Signs - 24 hr 10/19/24 09:35 10/19/24 12:43 10/19/24 15:42 Temperature 98.4 F 97.6 F 97.6 F Pulse Rate 81 88 88 Respiratory Rate 16 18 18 Blood Pressure 103/56 L 104/57 L 104/57 L Pulse Oximetry 97 100 100 Oxygen Delivery Method Room Air Room Air Room Air BMI result Body Mass Index 43.8 vital signs stable, afebrile General: Well appearing, in no acute distress. emesis bag on bed, no emesis noted Skin: Warm, dry, intact. No rashes or lesions. Head: Normocephalic, atraumatic. EENT: Hearing is intact b/l. Conjunctiva clear. Sclera is anicteric. PERRLA. EOM intact. Moist mucous membranes.? Cardiac: Chest wall symmetric. RRR Lungs: Normal respiratory effort without accessory muscle use. CTA bilaterally Abdomen: Obese abdomen, soft, nondistended, no tenderness to palpation. No rebound or guarding. Negative Rovsing sign. Negative McBurney point tenderness. Active bowel sounds x4. Ext: Upper and lower extremities atraumatic, without tenderness, deformity, swelling or erythema Neuro: AOx3. Normal speech. Ambulating with steady gait Course Course Course Narrative: CBC showing slight leukocytosis to 11.8 without left shift. This appears to be around her baseline when compared to priors. Normocytic anemia, H and H stable when compared to priors. Chemistry showing slight hyponatremia to 146, no acute electrolyte abnormalities requiring intervention. No CAMILO. Patient had an episode of hypoglycemia. POC 56. This is likely secondary to multiple episodes of vomiting prior to arrival and inability to eat anything. She was given juice and crackers with improvement to 90. negative covid, flu, and rsv. UA without infection. > on re-evaluation, patient reports she is feeling much better. Requesting something to eat. States she is hungry. I have provided her with crackers and a sandwich which she is tolerating. her exam is completely benign. i have no concern for acute abdomen - i do not feel as though imaging is warranted at this time. she is well-appearing, no further episodes of vomiting in the ED. workup is unremarkable. discussed disposition with patient. I suspect gastroenteritis. Will discharge home with zofran + supportive treatment. Patient has remained stable throughout ED visit today. Discussed worrisome signs and symptoms and when to return to the ED. All questions answered at this time. Patient is agreeable with disposition and stable for discharge. Medications Administered Discontinued Medications Generic Name Dose Route Start Last Admin Trade Name Freq PRN Reason Stop Dose Admin Sodium Chloride 1,000 mls @ 999 mls/hr 10/19/24 10:45 10/19/24 12:35 Ns IV 10/19/24 11:45 Infused .Q1H1M CARLEEN Infusion Ketorolac Tromethamine 30 mg 10/19/24 10:33 10/19/24 11:36 Ketorolac Tromethamine 30 Mg/Ml Vial IVPUSH 10/19/24 10:34 30 mg ONCE ONE Administration Ondansetron HCl 4 mg 10/19/24 10:33 10/19/24 11:36 Ondansetron Hcl 4 Mg/2 Ml Vial IVPUSH 10/19/24 10:34 4 mg ONCE ONE Administration Medical Decision Making Medical Decision Making MDM Narrative: 48-year-old female with pmhx significant for type 2 diabetes and schizophrenia presents to the ED today via EMS from [facility] for evaluation of nausea, vomiting, diarrhea, and abdominal pain since yesterday. Vitals are stable. She is afebrile. She is well-appearing and in no acute distress, holding emesis bag. No emesis noted to bag. Abdomen is obese, soft, nondistended, nontender, no rebound or guarding. Negative Rovsing sign. No McBurney point tenderness. Active bowel sounds x4. Differential diagnosis includes anemia, electrolyte abnormality, dehydration, gastroenteritis, gastritis, PUD, urinary tract infection, appendicitis, diverticulosis, diverticulitis, colitis, food poisoning, gastroparesis, DKA, hyperglycemia Plan for screening labs, UA +/- imaging, IV fluids and Zofran ordered. Toradol ordered for 2 to 3/10 pain. Will re-evaluate. Differential Diagnosis Differential Diagnoses: The differential diagnosis associated with the presentation includes as above. Admission/Observation not indicated Lab Data MDM Lab Attestation statement: I reviewed the patient's lab results. As above 10/19/24 11:29 10/19/24 11:29 Labs: Lab Results 10/19/24 10/19/24 10/19/24 Range/Units 11:29 12:28 14:56 WBC 11.8 H (4.8-10.8) X10*3/uL RBC 4.23 (4.20-5.50) X10*6/uL Hgb 11.7 L (12.0-16.0) g/dl Hct 36.6 L (37.0-47.0) % MCV 86.5 (80.0-98.0) fL MCH 27.7 (27.0-33.0) pg MCHC 32.0 (31.0-35.0) g/dl RDW 14.6 (11.0-16.0) % Plt Count 256 (160-400) X10*3/uL MPV 9.5 (9.4-12.3) fL Immature Gran % (Auto) 0.6 H (0.0-0.4) % Neut % (Auto) 65.5 (45-73) % Lymph % (Auto) 25.3 (20-40) % [place] % (Auto) 7.0 (2-11) % Eos % (Auto) 1.4 (0-4) % Baso % (Auto) 0.2 (0-2) % Lymph # (Auto) 3.0 (1.2-4.9) X10*3/uL [place] # (Auto) 0.8 (0.1-1.2) X10*3/uL Eos # (Auto) 0.2 (0.0-0.4) X10*3/uL Baso # (Auto) 0.0 (0.0-0.2) X10*3/uL Abs Immat Gran (auto) 0.07 H (0.00-0.03) X10*3/uL Absolute Neuts (auto) 7.7 (2.0-8.3) x10*3/uL Absolute Nucleated RBC 0.000 (0.0-0.012) X10*3/uL Nucleated RBC % (auto) 0.0 (0.0-0.2) /100WBC Sodium 146 H (135-145) mmol/L Potassium 4.6 (3.3-5.1) mmol/L Chloride 111 H (96-108) mmol/L Carbon Dioxide 28 (22-29) mmol/L Anion Gap 12 (12-20) BUN 11 (9-16) mg/dL Creatinine 0.64 (0.5-1.4) mg/dL Estim Creat Clear Calc 132.7 Estimated GFR > 60 POC Glucose 90 (60-115) mg/dL Random Glucose 56 L* (60-115) mg/dL Calcium 9.1 (8.4-10.2) mg/dL C-Reactive Protein 0.57 H (< or = 0.50) mg/dL Urine Color Yellow Urine Appearance Clear Urine pH 6.5 (5.0-9.0) Ur Specific [place] <= 1.005 (1.005-1.025) Urine Protein Negative (Neg-Trace) mg/dL Urine Glucose (UA) Negative (Negative) mg/dL Urine Ketones Negative (Negative) mg/dL Urine Blood Negative (Negative) Urine Nitrite Negative (Negative) Ur Leukocyte Esterase Negative (Negative) Influenza Type A (PCR) NEGATIVE (Negative) Influenza Type B (PCR) NEGATIVE (Negative) RSV RNA Qual (PCR) NEGATIVE (Negative) SARS-CoV-2 RNA (RT-PCR) NEGATIVE (Negative) Independent Historian Clinical information obtained from an independent historian. History obtained from or confirmed by: EMS External Record Review External record reviewed: Inpatient record Prescription Management I considered prescription management with: Other (zofran) Chronic Conditions Patient?s care impacted by: Diabetes Social Determinants Patient?s care significantly limited by Social Determinants of Health including: Other Social Determinant of Health Critical Care Time Critical Care Time Critical Care Time: No Discharge Plan Discharge Clinical Impression: Gastroenteritis Patient Disposition: Home, Self-Care Instructions: Gastroenteritis (ED) Additional Instructions: Your physical exam is reassuring. Your lab workup today was reassuring.? Your urine does not demonstrate infection. Your symptoms improved with medications and fluids today. Your symptoms are most consistent with a viral stomach bug, also known as gastroenteritis.? The treatment for this is supportive care. Symptoms usually resolve on their own in 48-72 hours.? The recommendation is rest and lots of oral hydration.? For the next 24 hours, stick to a NELDA diet (bananas rice, applesauce, tea, and toast) Zofran is an anti-nausea medication. This has been sent to your pharmacy for you to take as needed for nausea.? You can also try over the counter Pepto Bismol or Imodium as needed for upset stomach and diarrhea.? Follow up with your primary care provider this week. If you develop new or worsening symptoms call 911 or come back to the ER for further evaluation. Prescriptions: New ondansetron 4 mg tablet,disintegrating 4 mg PO DAILY PRN (Reason: nausea and vomiting) 5 Days Qty: 10 0RF No Action docusate sodium [Colace] 100 mg Capsule 100 mg PO BID ferrous sulfate 325 mg (65 mg iron) Tablet 325 mg PO DAILY omeprazole 20 mg capsule,delayed release(DR/EC) 1 cap PO DAILY@0630 metoprolol tartrate 25 mg tablet 1 tab PO BID lisinopril 10 mg tablet 10 mg PO DAILY divalproex 500 mg tablet extended release 24 hr 2,500 mg PO BEDTIME perphenazine 4 mg tablet 4 mg PO BID sertraline 50 mg tablet 50 mg PO DAILY clozapine 100 mg tablet 100 mg PO QAM Patient Comments: Confirmed by Luisito med cyber systems administrator [facility] [phone] clozapine 100 mg tablet 300 mg PO BEDTIME Patient Comments: Confirmed by Luisito med cyber systems administrator [facility] [phone] clozapine 25 mg tablet 25 mg PO QAM Rx Instructions: Confirmed by Luisito med cyber systems administrator [facility] [phone] sennosides [senna] 8.6 mg Tablet 8.6 mg PO DAILY Trulicity 3 mg/0.5 mL pen injector 1.5 mg SUBCUT WE insulin glargine [Lantus U-100 Insulin] 100 unit/mL Solution 70 unit subcut BEDTIME Qty: 0 0RF guaifenesin 10 ml PO Q4H PRN (Reason: Cough) Referrals: Roque Guevara,Jd, MD [Primary Care Provider] - Interventions: ED Discharge Assessment Last Done: 10/19/24 15:42 Discharge Date/Time: 10/19/24 15:42 Print Language: Vietnamese
[2024-10-19 11:35] LABS: MANUAL DIFF FLAG NO
[2024-10-19] MEDS: Ketorolac Tromethamine 30 MG/ML VIAL IVPUSH (11:36)
[2024-10-19] MEDS: ondansetron HCL 4 MG/2 ML VIAL IVPUSH (11:36)
[2024-10-19 11:37] LABS: Basophils Percent Auto 0.2 % (0-2); Eosinophils Absolute Auto 0.2 X10*3/uL (0.0-0.4); Eosinophils Percent Auto 1.4 % (0-4); Hematocrit 36.6 % (37.0-47.0); Hemoglobin 11.7 g/dl (12.0-16.0); Imm Gran Abs Auto 0.07 X10*3/uL (0.00-0.03); Imm Gran Pct Auto 0.6 % (0.0-0.4); Lymphocytes Percent Auto 25.3 % (20-40); Mean Corpuscular Hemoglobin 27.7 pg (27.0-33.0); Mean Corpuscular Volume 86.5 fL (80.0-98.0); Mean Platelet Volume 9.5 fL (9.4-12.3); Monocytes Absolute Auto 0.8 X10*3/uL (0.1-1.2); Neutrophils Absolute Auto 7.7 x10*3/uL (2.0-8.3); Neutrophils Percent Auto 65.5 % (45-73); Platelet Count 256 X10*3/uL (160-400); Red Blood Count 4.23 X10*6/uL (4.20-5.50); Red Cell Distribution Width 14.6 % (11.0-16.0); White Blood Count 11.8 X10*3/uL (4.8-10.8)
[2024-10-19] MEDS: 0.9 % Sodium Chloride 1,000 ML 999 ML IV (11:37)
[2024-10-19 12:02] LABS: Anion Gap 12 (12-20); Blood Urea Nitrogen 11 mg/dL (9-16); Calcium 9.1 mg/dL (8.4-10.2); Carbon Dioxide 28 mmol/L (22-29); Chloride 111 mmol/L (96-108); Creatinine Clr Calc Pharmacy 132.7; Estimated Glomerular Filt Rate > 60; Glucose Random 56 mg/dL (60-115); Potassium 4.6 mmol/L (3.3-5.1); Sodium 146 mmol/L (135-145)
[2024-10-19 12:03] LABS: C Reactive Protein 0.57 mg/dL (< or = 0.50)
[2024-10-19 12:17] LABS: Influenza A PCR NEGATIVE (Negative); Influenza B PCR NEGATIVE (Negative); Resp Syncy Virus RNA Qual PCR NEGATIVE (Negative); SARS COV2 PCR INHOUSE NEGATIVE (Negative)
[2024-10-19 12:31] LABS: Glucose, Whole Blood 90 mg/dL (60-115)
[2024-10-19 12:43] VITALS: BP 104/57; PULSE 88; RESP 18; TEMP 36.4; O2SAT 100
--- NOTE | 2024-10-19 13:49 | PC.NURSE ---
Staff member from [facility] (Nelly Choe) contacted this RN for update. Received verbal consent to give information by the patient. Nelly updated regarding patient's current status. Pt denies pain at this time, no acute distress. Awaiting urine specimen collection prior to discharge.
[2024-10-19 15:09] LABS: Appearance Urine Clear; Color Urine Yellow; Glucose Urine UA Negative (Negative); Leukocyte Esterase Urine Negative (Negative); Nitrite Urine Negative (Negative); PH 6.5 (5.0-9.0); Specific Gravity - Urine <= 1.005 (1.005-1.025); Urine Blood Negative (Negative); Urine Ketones Negative (Negative); Urine Protein Negative (Neg-Trace)
[2024-10-19 15:42] VITALS: BP 104/57; PULSE 88; RESP 18; TEMP 36.4; O2SAT 100
== END 2024-10-19 15:42 | disposition home or self-care (01) ==
PROVIDERS: Physician Assistant Medical; Emergency Provider Emergency Medicine Emergency Medical Services; PCP Internal Medicine
DX: K52.9 Noninfective gastroenteritis and colitis, unspecified (principal); R11.2 Nausea with vomiting, unspecified; F25.9 Schizoaffective disorder, unspecified; E11.9 Type 2 diabetes mellitus without complications; R10.31 Right lower quadrant pain; F17.210 Nicotine dependence, cigarettes, uncomplicated; Z03.818 Encounter for observation for suspected exposure to other biological agents ruled out; Z79.899 Other long term (current) drug therapy; Z79.4 Long term (current) use of insulin
CPT/HCPCS: 0241U; 36415; 80048; 81003; 82947; 85025; 86140; 96361; 96374; 96375; 99284; J1885; J2405

== ENCOUNTER 2025-01-28 13:11 | Inpatient (IN) | payer OTHER, SELFPAY ==
[2025-01-28 13:28] VITALS: BP 121/61; PULSE 96; RESP 16; TEMP 37; O2SAT 97; BMI 42.9
[2025-01-28 13:44] VITALS: BP 121/61; PULSE 96; RESP 16; TEMP 37; O2SAT 97
[2025-01-28 14:00] VITALS: BP 121/61; PULSE 96; RESP 16; TEMP 37; O2SAT 97
--- NOTE | 2025-01-28 14:14 | ED.PSYCH ---
HPI - Psych General Chief Complaint: Psychiatric Symptoms Stated Complaint: SI Time Seen by Provider: 01/28/25 13:54 Source: patient Limitations: no limitations History of Present Illness HPI Narrative: This is 49 years old the patient with a history of schizophrenia presented to the emergency department with chief complaint of hallucination she has history of schizophrenia she is sitting voices that are telling her to kill herself. MD complaint: hallucinations Onset (ago): day(s) (5) Duration: constant History of same: Yes Relieving factors: none Exacerbating factors: none Associated psychiatric symptoms: none Related Data Home Medications ?Medication ?Instructions ?Recorded ?Confirmed ferrous sulfate 325 mg (65 mg 325 mg PO DAILY 03/07/22 01/28/25 iron) tablet metoprolol tartrate 25 mg tablet 1 tab PO BID 03/07/22 01/28/25 omeprazole 20 mg capsule,delayed 1 cap PO DAILY@0630 03/07/22 01/28/25 release docusate sodium 100 mg capsule 100 mg PO BID Constipation 04/21/22 01/28/25 (Colace) clozapine 100 mg tablet 100 mg PO QAM 12/01/23 01/28/25 clozapine 100 mg tablet 300 mg PO BEDTIME 12/01/23 01/28/25 clozapine 25 mg tablet 25 mg PO QAM 12/01/23 01/28/25 divalproex 500 mg tablet,extended 2,500 mg PO BEDTIME 12/01/23 01/28/25 release 24 hr lisinopril 10 mg tablet 10 mg PO DAILY 12/01/23 01/28/25 perphenazine 4 mg tablet 4 mg PO BID 12/01/23 01/28/25 sertraline 50 mg tablet 50 mg PO DAILY 12/01/23 01/28/25 sennosides 8.6 mg tablet (senna) 8.6 mg PO DAILY 06/08/24 01/28/25 dulaglutide 3 mg/0.5 mL 3 mg subcut WE 06/10/24 01/29/25 subcutaneous pen injector (Trulicity) guaifenesin 10 ml PO Q4H PRN Cough 09/12/24 01/28/25 ascorbic acid (vitamin C) 500 mg 500 mg PO BID 01/29/25 01/29/25 tablet insulin aspar prt-insulin aspart 0 unit subcut TID 01/29/25 01/29/25 100 unit/mL (70-30) subcutaneous soln (Novolog Mix 70-30 U-100 Insuln) insulin glargine 100 unit/mL 65 unit subcut BEDTIME 01/29/25 01/29/25 subcutaneous solution (Lantus U-100 Insulin) metformin 500 mg tablet,extended 1,000 mg PO BIDWM 01/29/25 01/29/25 release 24 hr Previous Rx's ?Medication ?Instructions ?Recorded ondansetron 4 mg disintegrating 4 mg PO DAILY PRN nausea and 10/19/24 tablet vomiting 5 days #10 tabs Allergies Allergy/AdvReac Type Severity Reaction Status Date / Time Sulfa (Sulfonamide Allergy Intermediate PUFFY EYES Verified 01/28/25 13:29 Antibiotics) (SULFA (SULFONAMIDE ANTIBIOTICS)) Penicillins (PENICILLINS) Allergy Mild PT STATES Verified 01/28/25 13:29 NOTHING HAPPENS, ALLG LISTED ON TRANF SHEET acid Allergy Unknown Unknown Uncoded 01/28/25 13:29 Review of Systems Constitutional: Constitutional: Reports no additional constitutional complaints Cardiovascular: Cardiovascular: Reports no additional cardiovascular complaints Psychiatric: Psychiatric: Reports as per [facility] Past Medical History Attestation statement: The following information was validated with the patient. Source: unable to obtain Medical History Acute psychosis Gram-positive bacteremia HTN (hypertension) Diabetes Social History Social History Household Members: Other Household Members Other:: intermediate Housing: Other Housing Other:: intermediate Do you presently have visiting nurse or other home services: No Alcohol intake: never Patient Tobacco Use Status: Current everyday Tobacco user Tobacco use type: Cigarette Cigarette Packs Per Day: 0.5 Cigarettes Per Day: 10.0 Years Smoked: 36 e-Cigarette/Vaping Use: Never Used Second Hand Smoke Exposure: Yes Advance Directives: No Advance Directives Information Provided: Yes service: No Current occupational status: disabled Sexual orientation: Unable to collect Physical Exam Exam: Exam: No acute distress comfortable in the stretcher Vital Signs: Vital Signs: Last Vital Signs Temp 96.4 F L 01/29/25 10:13 Pulse 94 01/29/25 10:13 Resp 16 01/29/25 10:13 BP 133/67 01/29/25 10:13 Pulse Ox 99 01/29/25 10:13 O2 Del Method Room Air 01/29/25 10:13 BMI result Body Mass Index 42.9 Const: General: cooperative Nutritional Appearance: well nourished Orientation/consciousness: patient oriented x3 HEENT: Head: Yes normal to inspection Ears: hearing grossly normal bilaterally General nose exam: Normal external nose present Neck: Neck: Yes normal visual inspection and Yes full ROM Chest: Chest palpation & inspection: normal inspection of the chest Resp: Effort & Inspection: normal respiratory effort Auscultation: clear to auscultation bilaterally Cardio: Jugular venous distension: no JVD Rate: regular rate Rhythm: regular rhythm GI: Inspection: Yes normal to inspection Palpation (GI): Soft to palpation, not firm and nontender Skin: General skin exam: no rashes or lesions noted, elasticity normal and turgor normal Lesions: no lesions Rashes: no rashes Neuro: General: patient oriented x3 Course Reevaluation(s) Reevaluation #1: Patient was seen by crisis team she will be inpatient level of care she was placed in the Section 12 Time: 16:02 Reevaluation #2: Time: 06:21 Date: 01/29/25 Provider: Malcolm Brown MD Patient in physician observation for psychiatric evaluation.? No acute events reported overnight. No current complaints. VS stable.? Patient is in bed search status/pending CARE team evaluation. Will continue to monitor. Reevaluation #3: 01/29/2025 11:11 AM patient was seen by crisis we will be inpatient level of care she will be admitted to the psychiatric unit. At this time we will end the ED observation status Time: 11:12 Medications Administered Generic Name Dose Route Start Last Admin Trade Name Freq PRN Reason Stop Dose Admin Clozapine 100 mg 01/29/25 09:00 01/29/25 10:11 Clozapine 100 Mg Tablet PO 100 mg DAILY CARLEEN Administration Clozapine 25 mg 01/29/25 09:00 01/29/25 10:12 Clozapine 25 Mg Tablet PO 25 mg DAILY CARLEEN Administration Divalproex Sodium 2,500 mg 01/28/25 23:45 01/29/25 00:46 Divalproex Sodium Er 500 Mg Tab.Er.24h PO 2,500 mg BEDTIME CARLEEN Administration Docusate Sodium 100 mg 01/28/25 23:45 01/29/25 10:12 Docusate Sodium 100 Mg Capsule PO 100 mg BID CARLEEN Administration Ferrous Sulfate 324 mg 01/29/25 09:00 01/29/25 10:12 Ferrous Sulfate 324 Mg Tablet. PO 324 mg DAILY CARLEEN Administration Insulin Glargine 70 unit 01/28/25 23:45 01/29/25 00:45 Insulin Glargine,Hum.Rec.Anlog 100 Unit/Ml 10 Ml Vial SUBCUT 70 unit BEDTIME CARLEEN Administration Lisinopril 10 mg 01/29/25 09:00 01/29/25 10:12 Lisinopril 10 Mg Tablet PO 10 mg DAILY CARLEEN Administration Protocol Metoprolol Tartrate 25 mg 01/28/25 23:45 01/29/25 10:13 Metoprolol Tartrate 25 Mg Tablet PO 25 mg BID CARLEEN Administration Protocol Omeprazole 20 mg 01/29/25 06:30 01/29/25 06:19 Omeprazole 20 Mg Capsule. PO 20 mg DAILY@0630 CARLEEN Administration Perphenazine 4 mg 01/28/25 23:45 01/29/25 10:11 Perphenazine 4 Mg Tablet PO 4 mg BID CARLEEN Administration Senna 8.6 mg 01/29/25 09:00 01/29/25 10:12 Sennosides 8.6 Mg Tablet PO 8.6 mg DAILY CARLEEN Administration Sertraline HCl 50 mg 01/29/25 09:00 01/29/25 10:12 Sertraline Hcl 50 Mg Tablet PO 50 mg DAILY CARLEEN Administration Discontinued Medications Generic Name Dose Route Start Last Admin Trade Name Freq PRN Reason Stop Dose Admin Clozapine 300 mg 01/28/25 23:45 01/29/25 00:45 Clozapine 100 Mg Tablet PO 300 mg BEDTIME CARLEEN Administration Medical Decision Making Medical Decision Making [facility] Narrative: Patient presented to the emergency department with a chief complaint of auditory hallucination history of schizophrenia with prior hospitalization we will get crisis evaluation Differential Diagnosis Differential Diagnoses: The differential diagnosis associated with the presentation includes Psychosis/schizophrenia anxiety Lab Data 01/28/25 14:09 01/28/25 14:09 Labs: Lab Results 01/28/25 01/28/25 01/29/25 Range/Units 14:09 16:20 00:35 WBC 9.6 (4.8-10.8) X10*3/uL RBC 4.07 L (4.20-5.50) X10*6/uL Hgb 11.6 L (12.0-16.0) g/dl Hct 35.8 L (37.0-47.0) % MCV 88.0 (80.0-98.0) fL MCH 28.5 (27.0-33.0) pg MCHC 32.4 (31.0-35.0) g/dl RDW 14.6 (11.0-16.0) % Plt Count 233 (160-400) X10*3/uL MPV 9.5 (9.4-12.3) fL Immature Gran % (Auto) 0.6 H (0.0-0.4) % Neut % (Auto) 63.5 (45-73) % Lymph % (Auto) 28.0 (20-40) % [place] % (Auto) 6.7 (2-11) % Eos % (Auto) 1.0 (0-4) % Baso % (Auto) 0.2 (0-2) % Lymph # (Auto) 2.7 (1.2-4.9) X10*3/uL [place] # (Auto) 0.6 (0.1-1.2) X10*3/uL Eos # (Auto) 0.1 (0.0-0.4) X10*3/uL Baso # (Auto) 0.0 (0.0-0.2) X10*3/uL Abs Immat Gran (auto) 0.06 H (0.00-0.03) X10*3/uL Absolute Neuts (auto) 6.1 (2.0-8.3) x10*3/uL Absolute Nucleated RBC 0.000 (0.0-0.012) X10*3/uL Nucleated RBC % (auto) 0.0 (0.0-0.2) /100WBC Sodium 141 (135-145) mmol/L Potassium 4.5 (3.3-5.1) mmol/L Chloride 107 (96-108) mmol/L Carbon Dioxide 26 (22-29) mmol/L Anion Gap 13 (12-20) BUN 11 (9-16) mg/dL Creatinine 0.76 (0.5-1.4) mg/dL Estim Creat Clear Calc 109.2 Estimated GFR > 60 POC Glucose 213 H (60-115) mg/dL Random Glucose 162 H (60-115) mg/dL Calcium 8.6 (8.4-10.2) mg/dL Magnesium 1.7 (1.6-2.6) mg/dL Total Bilirubin 0.1 (0.0-1.0) mg/dL AST 22 (5-31) U/L ALT 27 (0-31) U/L Alkaline Phosphatase 55 (39-117) U/L Total Protein 6.0 L (6.5-8.0) g/dL Albumin 3.7 (3.5-5.0) g/dL Lipase 17 (8-78) U/L Urine Color Yellow Urine Appearance Clear Urine pH 6.0 (5.0-9.0) Ur Specific [place] <= 1.005 (1.005-1.025) Urine Protein Negative (Neg-Trace) mg/dL Urine Glucose (UA) Negative (Negative) mg/dL Urine Ketones Negative (Negative) mg/dL Urine Blood Negative (Negative) Urine Nitrite Negative (Negative) Ur Leukocyte Esterase Negative (Negative) Salicylates < 5.0 L (15-30) mg/dL Urine Opiates Screen Not Detected (Not Detect) Ur Buprenorphine Scrn Not Detected (Not Detect) ng/mL Ur Oxycodone Screen Not Detected (Not Detect) ng/mL Urine Methadone Screen Not Detected (Not Detect) ng/mL Urine Fentanyl Screen Not Detected (Not Detect) Acetaminophen < 3 (<30) mcg/mL Ur Barbiturates Screen Not Detected (Not Detect) Ur Phencyclidine Scrn Not Detected (Not Detect) Ur Amphetamines Screen Not Detected (Not Detect) U Benzodiazepines Scrn Not Detected (Not Detect) Urine Cocaine Screen Not Detected (Not Detect) U Marijuana (THC) Screen Not Detected (Not Detect) Ethyl Alcohol < 10 mg/dL Discharge Plan Discharge Clinical Impression: Schizophrenia Patient Disposition: Admitted As Inpatient Print Language: Niuean
[2025-01-28 14:15] LABS: MANUAL DIFF FLAG NO
[2025-01-28 14:16] LABS: Hematocrit 35.8 % (37.0-47.0); Hemoglobin 11.6 g/dl (12.0-16.0); Imm Gran Abs Auto 0.06 X10*3/uL (0.00-0.03); Imm Gran Pct Auto 0.6 % (0.0-0.4); Lymphocytes Absolute Auto 2.7 X10*3/uL (1.2-4.9); Mean Corpuscular HGB Conc 32.4 g/dl (31.0-35.0); Mean Corpuscular Hemoglobin 28.5 pg (27.0-33.0); Mean Corpuscular Volume 88.0 fL (80.0-98.0); NRBC Abs Auto 0.000 X10*3/uL (0.0-0.012); NRBC Pct Auto 0.0 /100WBC (0.0-0.2); Platelet Count 233 X10*3/uL (160-400); Red Blood Count 4.07 X10*6/uL (4.20-5.50); White Blood Count 9.6 X10*3/uL (4.8-10.8)
[2025-01-28 14:34] LABS: Alanine Aminotransferase 27 U/L (0-31); Albumin Level 3.7 g/dL (3.5-5.0); Alkaline Phosphatase 55 U/L (39-117); Anion Gap 13 (12-20); Aspartate Amino Transferase 22 U/L (5-31); Blood Urea Nitrogen 11 mg/dL (9-16); Calcium 8.6 mg/dL (8.4-10.2); Carbon Dioxide 26 mmol/L (22-29); Chloride 107 mmol/L (96-108); Creatinine Clr Calc Pharmacy 109.2; Estimated Glomerular Filt Rate > 60; Lipase 17 U/L (8-78); Magnesium 1.7 mg/dL (1.6-2.6); Potassium 4.5 mmol/L (3.3-5.1); Sodium 141 mmol/L (135-145); Total Protein 6.0 g/dL (6.5-8.0)
[2025-01-28 15:05] LABS: Acetaminophen LAB < 3 mcg/mL (<30); Salicylate < 5.0 mg/dL (15-30)
--- NOTE | 2025-01-28 15:24 | PC.NURSE ---
Pt is resting at this time, she continues to endorse AH almost constant, soft and loud to hurt herself. she states she feels safe, she is seen by clinical staff.
--- NOTE | 2025-01-28 16:42 | ECG_ITS ---
Test Reason : prolong qtc Blood Pressure : */* mmHG Vent. Rate : 79 BPM Atrial Rate : 79 BPM P-R Int : 120 ms QRS Dur : 92 ms QT Int : 398 ms P-R-T Axes : 59 57 46 degrees QTcB Int : 456 ms Poor data quality, interpretation may be adversely affected Normal sinus rhythm with sinus arrhythmia Low voltage QRS Borderline ECG When compared with ECG of 09-Jun-2024 08:33, No significant change was found Referred By: Malcolm Brown Electronically Signed By: PAULO CARDENAS MD
[2025-01-28 16:58] LABS: Cannabinoid Screen Urine Not Detected (Not Detect)
[2025-01-28 17:04] LABS: Appearance Urine Clear; Glucose Urine UA Negative (Negative); PH 6.0 (5.0-9.0); Specific Gravity - Urine <= 1.005 (1.005-1.025)
--- OUTSIDE RECORDS SUMMARY | 2025-01-28 17:28 | XMS_ITS | Encounter Summary ---
Author Organization [employer] Address [address] [facility] [address] [place] [address] Care Team Providers Care Reprint Sorter Name Role Phone Jd oCrdova MD Primary Care Prov ider Reason for Visit * Reason Onset Date Comments Referral 01/13/2024 Encounter Details Date Type Department Care Team ([facility] st Contact Info) Description 01/13/2024 Telephone [facility] MEDICINE [address] [place] [address] Jd Cordova MD [address] [place] [address] [phone] Referral Social History Tobacco Use Types Packs/Day [...] 12:38 PM EDT [facility] a referral to get Colonoscopy done, pt expressed she'll rather due that then that screening lab work sent on 12/24/23 documented in this encounter Plan of Treatment Not on file documented as of this encounter Visit Diagnoses Not on filedocumented in this encounter Care Teams Reprint Sorter Relationship Specialty Start Date End Date Jd Cordova MD [address] [place] [phone] PCP - General Internal Medicine 06/30/19 documented as of this encounter
--- OUTSIDE RECORDS SUMMARY | 2025-01-28 17:28 | XMS_ITS | Encounter Summary ---
Author Organization [employer] Address [address] [facility] [address] [place] [address] Care Team Providers Care Youth Counselor Name Role Phone Jd Cordova MD Primary Care Prov ider Reason for Visit * Reason Onset Date Comments Med Refill 05/03/2023 Encounter Details Date Type Department Care Team ([facility] st Contact Info) Description 05/03/2023 Telephone [facility] MEDICINE [address] [place] [address] Jd Cordova MD [address] [place] [phone] Med Refill Social History Tobacco Use Types [...] requesting med refill on; GNP [facility] [place] 31G X 5 MM misc (4 times a day) due to insurance. documented in this encounter Plan of Treatment Not on file documented as of this encounter Visit Diagnoses Not on filedocumented in this encounter Care Teams Youth Counselor Relationship Specialty Start Date End Date Jd Cordova MD [address] [place] [phone] PCP - General Internal Medicine 06/30/19 documented as of this encounter
--- OUTSIDE RECORDS SUMMARY | 2025-01-28 17:28 | XMS_ITS | Encounter Summary ---
Author Organization [employer] Address [address] [place] [address] 7 [place] [address] Care Team Providers Care Telemarketer Supervisor Name Role Phone Jd Cordova MD Primary Care Prov ider Encounter Details Date Type Department Care Team (Late st Contact Info) Description 06/25/[address] [facility] MED & PEDS [address] [place], [place] [phone] Jd Cordova MD [address] [place] [address] Type 2 diabetes mellitus without complication, with [...] Primary documented in this encounter Care Teams Telemarketer Supervisor Relationship Specialty Start Date End Date Jd Cordova MD [address] [place] [address] PCP - General Internal Medicine 06/30/19 documented as of this encounter
--- OUTSIDE RECORDS SUMMARY | 2025-01-28 17:28 | XMS_ITS | Encounter Summary ---
Author Organization [employer] Address [address] [facility] [address] [place] [address] Care Team Providers Care Instrument Repairer Helper Name Role Phone Jd Cordova MD Primary Care Prov ider Reason for Visit * Reason Onset Date Comments Med Refill 05/03/2023 Encounter Details Date Type Department Care Team (Late st Contact Info) Description 05/03/2023 Telephone [facility] MEDICINE [address] [place] [address] Jd Cordova MD [address] [place] [address] Med Refill Social History Tobacco Use Types [...] 05/03/2023 11:26 AM EST Tc from patients director case calling to request a new script for GNP Norma Sharma [place] 31G X 5 MM misc stated needs to say 4 times shayy please clarify. documented in this encounter Plan of Treatment Not on file documented as of this encounter Visit Diagnoses Not on filedocumented in this encounter Care Teams Instrument Repairer Helper Relationship Specialty Start Date End Date Jd Cordova MD [address] [place] [phone] PCP - General Internal Medicine 06/30/19 documented as of this encounter
--- OUTSIDE RECORDS SUMMARY | 2025-01-28 17:28 | XMS_ITS | Encounter Summary ---
Author Organization [employer] Address [address] [facility] [address]t [place] [address] Care Team Providers Care Housekeeper Manager Name Role Phone Jd Cordova MD Primary Care Prov ider Encounter Details Date Type Department Care Team ([facility] st Contact Info) Description 07/10/2023 Orders Only [facility] MED & PEDS [address] [place], [place] [phone] Jd Cordova MD [address] [place] [address] Social History Tobacco Use Types Packs/Day Years [...] on filedocumented in this encounter Care Teams Housekeeper Manager Relationship Specialty Start Date End Date Jd Cordova MD [address] [place] [address] PCP - General Internal Medicine 06/30/19 documented as of this encounter
--- OUTSIDE RECORDS SUMMARY | 2025-01-28 17:28 | XMS_ITS | Encounter Summary ---
Author Organization [employer] Address [address] [facility] [address] [place] [address] Care Team Providers Care Certified Court Interpreter Name Role Phone Jd Cordova MD Primary Care Prov ider Encounter Details Date Type Department Care Team ([facility] st Contact Info) Description 01/23/2024 Telephone [facility] MED [facility] PEDS [address] [place], [place] [phone] Jd Cordova MD [address] [place], [place] [phone] Social History Tobacco Use Types Packs/Day Years [...] on filedocumented in this encounter Care Teams Certified Court Interpreter Relationship Specialty Start Date End Date Jd Cordova MD [address] [place] [address] PCP - General Internal Medicine 06/30/19 documented as of this encounter
--- OUTSIDE RECORDS SUMMARY | 2025-01-28 17:28 | XMS_ITS | Encounter Summary ---
Author Organization [employer] Address [address] [facility] [address]t [place] [address] Care Team Providers Care Wood Engraver Name Role Phone Jd Cordova MD Primary Care Prov ider Encounter Details Date Type Department Care Team (Late st Contact Info) Description 01/28/2025 Orders Only GENERIC EXTERNAL DATA DEPARTMENT Provider, Generic External Data Social History Tobacco Use Types Packs/Day Years [...] on file documented as of this encounter Procedures Procedure Name Priority Date/Time Associated Diagnosis Comments DRUG MONITOR, PANEL 1, SCREEN, URINE Routine 01/28/2025 4:20 PM EDT URINALYSIS WITH REFLEX MICROSCOPIC Routine 01/28/2025 4:20 PM EDT ETHANOL Routine 01/28/2025 2:09 PM EDT CBC WITH AUTO DIFFERENTIAL Routine 01/28/2025 2:09 PM EDT MAGNESIUM Routine 01/28/2025 2:09 PM EDT LIPASE Routine 01/28/2025 2:09 PM EDT ACETAMINOPHEN LEVEL Routine 01/28/2025 2 :09 PM EDT SALICYLATE Routine 01/28/2025 2:09 PM EDT COMPREHENSIVE METABOLIC PANEL Routine 01/28/2025 2:09 PM EDT documented in this encounter Results * Urinalysis w/reflex microscopic (01/28/2025 4:20 PM EDT) Color Urine Yellow [facility] Appearance Urine Clear [facility] PH 6.0 5.0 - 9.0 [facility] Glucose Urine UA Negative Negative mg/dL [facility] Urine Blood Negative Negative [facility] Specific Holt - Urine <=1.005 1.005 - 1.025 [facility] Urine Protein Negative Neg-Trace mg/dL [facility] Urine Ketones Negative Negative mg/dL [facility] Nitrite Urine Negative Negative [facility] Leukocyte Esterase Urine Negative Negative [facility] 01/28/2025 4:20 PM EDT 01/28/2025 4:24 PM EDT Narrative [facility] - 01/28/2025 5:04 PM EDT [id number], Clean Catch us Generic External Data Provider LAB URINE ORDERAB LES Final Result [facility] [address] [place] [phone] * Drug Monitoring, Panel 1, Screen, Urine (01/28/2025 4:20 PM EDT) Opiate Screen Urine Not Detected Not Detect [facility] Comment:Opiate cut-off is 30 0 ng/mL.Positive results are unconfirmed and should not be used fornon-medical purposes. Barbiturates, Urine Not Detected Not Detect [facility] Comment:Barbiturate cut-off is 200 ng/mL.Positive results are unconfirmed and should not be used fornon-medical purposes. Phencyclidine Screen Urine Not Detected Not Detect [facility] Comment:Phencyclidine cut-of f is 25 ng/mL.Positive results are unconfirmed and should not be used fornon-medical purposes. Amphetamine Screen Urine Not Detected Not Detect [facility] Comment:Amphetamine cut-off is 1000 ng/mL.Positive results are unconfirmed and should not be used fornon-medical purposes. Benzodiazepines Screen Urine Not Detected Not Detect [facility] Comment:Benzodiazepine cut-o ff is 200 ng/mL.Positive results are unconfirmed and should not be used fornon-medical purposes. Cocaine Screen Urine Not Detected Not Detect [facility] Comment:Cocaine cut-off is 3 00 ng/mL.Positive results are unconfirmed and should not be used fornon-medical purposes. Cannabinoid Screen Urine Not Detected Not Detect [facility] Comment:Cannabinoid cut-off is 50 ng/mL.Positive results are unconfirmed and should not be used fornon-medical purposes. Methadone Screen, Urine Not Detected Not Detect ng/mL [facility] Comment:Methadone cut-off is 300 ng/mL.Positive results are unconfirmed and should not be used fornon-medical purposes. FENTANYL URINE Not Detected Not Detect [facility] Comment:Fentanyl cut-off is 1 ng/mL.Positive results are unconfirmed and should not be used fornon-medical purposes. Oxycodone Urine Screen Not Detected Not Detect ng/mL [facility] Comment:Oxycodone cut-off is 100 ng/mL.Positive results are unconfirmed and should not be used fornon-medical purposes. Buprenorphine Screen Not Detected Not Detect ng/mL [facility] Comment:Buprenorphine cut-of f is 5 ng/mL.Positive results are unconfirmed and should not be used fornon-medical purposes. 01/28/2025 4:20 PM EDT 01/28/2025 4:24 PM EDT us Generic External Data Provider LAB URINE ORDERAB LES Final Result [facility] [address] [place] [address] [phone] * Acetaminophen level (01/28/2025 2:09 PM EDT) Acetaminophen LAB <3 <30 mcg/mL [facility] 01/28/2025 2:09 PM EDT 01/28/2025 2:13 PM EDT Generic External Data Provider LAB BLOOD ORDERAB LES Final Result Performing Organization Address [facility] Co de Phone Number [facility] [address] [place] [phone] * (ABNORMAL) Salicylate (01/28/2025 2:09 PM EDT) Salicylate <5.0(L) 15 - 30 mg/dL [facility] 01/28/2025 2:09 PM EDT 01/28/2025 2:13 PM EDT Generic External Data Provider LAB BLOOD ORDERAB LES Final Result Performing Organization Address [facility] de Phone Number [facility] [address] [place] [phone] * Ethanol (01/28/2025 2:09 PM EDT) ETHANOL (MG/DL) IN SER/PLAS <10 mg/dL [facility] Comment:Serum/plasma ethanol results are to be used formedical/treatment purposes only. 01/28/2025 2:09 PM EDT 01/28/2025 2:13 PM EDT Generic External Data Provider LAB BLOOD ORDERAB LES Final Result Performing Organization Address [facility] Co de Phone Number [facility] [address] [place] [phone] * Lipase (01/28/2025 2:09 PM EDT) Lipase 17 8 - 78 U/L [facility] 01/28/2025 2:09 PM EDT 01/28/2025 2:13 PM EDT us Generic External Data Provider LAB BLOOD ORDERAB LES Final Result Performing Organization Address City/[facility]/ZIP Co de Phone Number [facility] [address] [place] [address] [phone] * Magnesium (01/28/2025 2:09 PM EDT) Magnesium 1.7 1.6 - 2.6 mg/dL [facility] 01/28/2025 2:09 PM EDT 01/28/2025 2:13 PM EDT us Generic External Data Provider LAB BLOOD ORDERAB LES Final Result Performing Organization Address [facility]/ZIP Co de Phone Number [facility] [address] [place] [phone] [phone] * (ABNORMAL) Comprehensive Metabolic Panel (01/28/2025 2:09 PM EDT) Sodium 141 135 - 145 mmol/L [facility] Potassium 4.5 3.3 - 5.1 mmol/L [facility] Chloride 107 96 - 108 mmol/L [facility] Carbon Dioxide 26 22 - 29 mmol/L [facility] Anion Gap 13 12 - 20 [facility] Urea Nitrogen (BUN) 11 9 - 16 mg/dL [facility] Creatinine, Serum 0.76 0.5 - 1.4 mg/dL [facility] Creatinine Clr Calc Pharmacy 109.2 [facility] Comment:Provided height and weight: 162.56 cm,113.398 kg.eGFR (calculated from the MDRD study equation) and eCrCl(calculated from the Cockcroft-Gault equation) are based ondifferent parameters and may not yield comparable results.If eCrCl result is absurd, please check patient'sheight/weight. Estimated Glomerular Filt Rate >60 [facility] Comment:Chronic Kidney Disea se: Estimated GFR < 60 mL/min/[id number] Kidney Disease: Estimated GFR < 15 mL/min/1.73m2 Glucose 162(H) 60 - 115 mg/dL [facility] Calcium 8.6 8.4 - 10.2 mg/dL [facility] Bilirubin, Total 0.1 0.0 - 1.0 mg/dL [facility] Aspartate Amino Transferase 22 5 - 31 U/L [facility] Alanine Aminotransferase 27 0 - 31 U/L [facility] Total Protein 6.0(L) 6.5 - 8.0 g/dL [facility] Albumin Level 3.7 3.5 - 5.0 g/dL [facility] Alkaline Phosphatase 55 39 - 117 U/L [facility] 01/28/2025 2:09 PM EDT 01/28/2025 2:13 PM EDT us Generic External Data Provider LAB BLOOD ORDERAB LES Final Result [facility] [address] [place] [phone] * (ABNORMAL) CBC auto differential (01/28/2025 2:09 PM EDT) White Blood Count 9.6 4.8 - 10.8 X10*3/uL [facility] Red Blood Count 4.07(L) 4.20 - 5.50 X10*6/uL [facility] Hemoglobin 11.6(L) 12.0 - 16.0 g/dl [facility] Hematocrit 35.8(L) 37.0 - 47.0 % [facility] Mean Corpuscular Volume 88.0 80.0 - 98.0 fL [facility] Mean Corpuscular Hemoglobin 28.5 27.0 - 33.0 pg [facility] Mean Corpuscular HGB Conc 32.4 31.0 - 35.0 g/dl [facility] Red Cell Distribution Width 14.6 11.0 - 16.0 % [facility] Platelet Count 233 160 - 400 X10*3/uL [facility] Mean Platelet Volume 9.5 9.4 - 12.3 fL [facility] Neutrophils Percent Auto 63.5 45 - 73 % [facility] Imm Gran Pct Auto 0.6(H) 0.0 - 0.4 % [facility] Lymphocytes Percent Auto 28.0 20 - 40 % [facility] Monocytes Percent Auto 6.7 2 - 11 % [facility] Eosinophils Percent Auto 1.0 0 - 4 % [facility] Basophils Percent Auto 0.2 0 - 2 % [facility] NRBC Pct Auto 0.0 0.0 - 0.2 /100WBC [facility] Neutrophils Absolute Auto 6.1 2.0 - 8.3 x10*3/uL [facility] Imm Gran Abs Auto 0.06(H) 0.00 - 0.03 X10*3/uL [facility] Lymphocytes Absolute Auto 2.7 1.2 - 4.9 X10*3/uL [facility] Monocytes Absolute Auto 0.6 0.1 - 1.2 X10*3/uL [facility] Eosinophils Absolute Auto 0.1 0.0 - 0.4 X10*3/uL [facility] Basophils Absolute Auto 0.0 0.0 - 0.2 X10*3/uL [facility] NRBC Abs Auto 0.000 0.0 - 0.012 X10*3/uL [facility] 01/28/2025 2:09 PM EDT 01/28/2025 2:13 PM EDT us Generic External Data Provider LAB BLOOD ORDERAB LES Final Result [facility] [address] [place] [address] [phone] documented in this encounter Visit Diagnoses Not on filedocumented in this encounter Care Teams Wood Engraver Relationship Specialty Start Date End Date Jd Cordova MD [address] [place] [address] PCP - General Internal Medicine 06/30/19 documented as of this encounter
--- OUTSIDE RECORDS SUMMARY | 2025-01-28 17:28 | XMS_ITS | Clinical Summary ---
Author Organization [employer] Address [address] [facility] [address] [place] [address] Care Team Providers Care Cafeteria Counter Attendant Name Role Phone Jd Cordova MD Primary [...] 85 units/day 023 Active GNP UltiCare Pen [place] 31G X 5 MM misc Use as directed with insulin daily 100 each 11 023 Active FreeStyle lancets 024 Active Trulicity 3 MG/0.5ML solution auto-injector Inject 3 mg under the skin every 7 (seven) days. 024 Active ascorbic acid (Vitamin C) 500 MG tablet TAKE 1 TABLET BY MOUTH TWICE DAILY 180 tablet 2 025 Active FREESTYLE LITE test strip Glucose monitoring BID 100 each 3 025 Active nystatin (Nystop) 568697 UNIT/GM powderIndicatio ns:Candidiasis, intertrigo Apply topically 2 times daily. 60 g 2 025 2025 Active lisinopril 10 MG tabletIndicatio ns:Primary hypertension TAKE 1 TABLET BY MOUTH EVERY DAY 90 tablet 3 025 Active metoprolol tartrate (Lopressor) 25 MG tabletIndicatio ns:Primary hypertension Take 1 tablet (25 mg) by mouth 2 times daily. 30 tablet 11 025 2025 Active ferrous sulfate 325 (65 Fe) MG tabletIndicatio ns:Iron deficiency anemia, unspecified iron deficiency anemia type TAKE 1 TABLET BY MOUTH EVERY DAY WITH BREAKFAST 90 tablet 1 025 Active Senna-Time 8.6 MG tablet TAKE 1 TABLET BY MOUTH EVERY MORNING 90 tablet 1 025 Active omeprazole (PriLOSEC) [address] capsule TAKE 1 CAPSULE BY MOUTH EVERY DAY BEFORE A MEAL 30 capsule 5 025 Active omeprazole (PriLOSEC) [address] capsule TAKE 1 CAPSULE BY MOUTH EVERY DAY BEFORE A MEAL 90 capsule 1 025 2024 Discontinued Active Problems Problem Noted Date Diagnosed Date [...] for colon cancer 06/21/2022 Assessment & Plan (10/22/2024 12:07 PM EDT): Patient wants to get colonoscopy, will place referral, no warning signs Assessment & Plan (12/24/2023 10:21 AM EDT): Will send cologuard, refused colonoscopy Assessment & Plan (06/21/2022 9:37 AM EST): Will order Ifobt test, refused colonoscopy Viral upper respiratory tract infection 06/21/19 23 Assessment & Plan (06/21/2022 9:39 AM EST): [...] Encounters Date Type Department Care Team Description 01/28/2025 Orders Only GENERIC EXTERNAL DATA DEPARTMENT Provider, Generic External Data 01/04/2025 Refill [facility] [address] [place] [address] Jd Cordova MD 12/31/2024 Refill [facility] [address] [place] [address] Jd Cordova MD 12/02/2024 Refill [facility] [address] [place] [address] Jd Cordova MD Iron deficiency anemia, unspecified iron deficiency anemia type 11/10/2024 Refill [facility] [address] [place] [address] Jd Cordova MD Primary hypertension 10/29/2024 Refill [facility] [address] [place] [address] Jd Cordova MD Primary hypertension from Last 3 Months Immunizations Immunization Administration [...] 98 10/01/2024 3:33 PM EDT Temperature 36.7 C (98 F) 10/01/2024 3:33 PM EDT Respiratory Rate 20 [...] DNA/Cologuard 1975 SDOH Screening 1975 Sigmoidoscopy 1975 Disability Screening 1975 Alcohol/Substance Use Screening 1986 Family Planning (PISQ) 1989 Hepatitis B Vaccines (3 of 3 - 19+ 3-dose series) 08/18/2018 03/24/2018, 02/17/2018 Diabetes: Urine Protein Screening 07/09/2020 07/09/2019 Colorectal Cancer Screening 07/01/2023 FIT 07/01/2023 07/01/2022 FOBT 07/01/2023 07/01/2022 Pneumococcal Vaccine: 50+ Years (2 of 2 - PCV) 12/27/2023 12/26/2022, 02/17/2018 Tobacco Screening 04/18/2024 04/18/2023 Mammogram 07/12/2024 07/12/2022 Diabetes: Foot Exam 09/24/2024 09/25/2023, 09/25/2023, 09/25/2023, Additional history exists Zoster Vaccines (1 of 2) 2024 COVID-19 Vaccine ( season) 2025 03/16/2022, 03/15/2021, 07/07/2020, Additional history exists Influenza Vaccine (#1) 2025 , 03/16/2022, 07/09/2019, Additional history exists Diabetes: Hemoglobin A1C 04/03/2025 025, 07/01/2024, 12/24/2023, Additional history exists Eye Exam 04/04/2025 04/04/2023, 03/20, 04/04/2023, Additional history exists Lipid Panel 10/01/2025 10/01/2024, 0211/2022, 06/27/2021 Cervical Cancer Screening 12/06/2025 HPV/Cotest 12/06/2025 12/06/2020 [...] Procedure Name Priority Date/Time Associated Diagnosis Comments URINALYSIS WITH REFLEX MICROSCOPIC Routine 01/28/2025 4:20 PM EDT DRUG MONITOR, PANEL 1, SCREEN, URINE Routine 01/28/2025 4:20 PM EDT ACETAMINOPHEN LEVEL Routine 01/28/2025 2 :09 PM EDT SALICYLATE Routine 01/28/2025 2:09 PM EDT ETHANOL Routine 01/28/2025 2:09 PM EDT LIPASE Routine 01/28/2025 2:09 PM EDT MAGNESIUM Routine 01/28/2025 2:09 PM EDT COMPREHENSIVE METABOLIC PANEL Routine 01/28/2025 2:09 PM EDT CBC WITH AUTO DIFFERENTIAL Routine 01/28/2025 2:09 PM EDT LIPID PANEL, STANDARD Routine 10/01/2024 4:21 PM EDT Type 2 diabetes mellitus without complication, with long-term current use of insulin (CMS/HCC) POCT GLYCATED HEMOGLOBIN, TOTAL Routine 10/01/2024 4:20 [...] complication, with long-term current use of insulin ([facility]) Primary hypertension HIV 1 RNA, QN PCR W/RFL ANTONIO (RTI,PI,INTEGRASE) Routine 06/26/2022 10:02 AM EST Type 2 diabetes mellitus without complication, with long-term current use of insulin ([facility]) Primary hypertension HPV MRNA E6/E7 Routine 12/06/2020 10:21 AM EDT THINPREP PAP Routine 12/06/2020 10:21 AM EDT ZZZ HISTORICAL MICROALBUMIN, RANDOM Routine 07/09/2019 12:04 PM EST from Last 3 Months or Most Recently Relevant to Health Maintenance Results * Drug Monitoring, Panel 1, Screen, Urine (01/28/2025 4:20 PM EDT) Opiate Screen Urine Not Detected Not Detect [facility] Comment:Opiate cut-off is 30 0 ng/mL.Positive results are unconfirmed and should not be used fornon-medical purposes. Barbiturates, Urine Not Detected Not Detect [facility] Comment:Barbiturate cut-off is 200 ng/mL.Positive results are unconfirmed and should not be used fornon-medical purposes. Phencyclidine Screen Urine Not Detected Not Detect [facility] Comment:Phencyclidine cut-of f is 25 ng/mL.Positive results are unconfirmed and should not be used fornon-medical purposes. Amphetamine Screen Urine Not Detected Not Detect [facility] Comment:Amphetamine cut-off is 1000 ng/mL.Positive results are unconfirmed and should not be used fornon-medical purposes. Benzodiazepines Screen Urine Not Detected Not Detect [facility] Comment:Benzodiazepine cut-o ff is 200 ng/mL.Positive results are unconfirmed and should not be used fornon-medical purposes. Cocaine Screen Urine Not Detected Not Detect [facility] Comment:Cocaine cut-off is 3 00 ng/mL.Positive results are unconfirmed and should not be used fornon-medical purposes. Cannabinoid Screen Urine Not Detected Not Detect [facility] Comment:Cannabinoid cut-off is 50 ng/mL.Positive results are unconfirmed and should not be used fornon-medical purposes. Methadone Screen, Urine Not Detected Not Detect ng/mL [facility] Comment:Methadone cut-off is 300 ng/mL.Positive results are unconfirmed and should not be used fornon-medical purposes. FENTANYL URINE Not Detected Not Detect [facility] Comment:Fentanyl cut-off is 1 ng/mL.Positive results are unconfirmed and should not be used fornon-medical purposes. Oxycodone Urine Screen Not Detected Not Detect ng/mL [facility] Comment:Oxycodone cut-off is 100 ng/mL.Positive results are unconfirmed and should not be used fornon-medical purposes. Buprenorphine Screen Not Detected Not Detect ng/mL [facility] Comment:Buprenorphine cut-of f is 5 ng/mL.Positive results are unconfirmed and should not be used fornon-medical purposes. 01/28/2025 4:20 PM EDT 01/28/2025 4:24 PM EDT us Generic External Data Provider LAB URINE ORDERAB LES Final Result Performing Organization Address City/State/[facility] Co de Phone Number [facility] [address] [place] [phone] * Urinalysis w/reflex microscopic (01/28/2025 4:20 PM EDT) Color Urine Yellow [facility] Appearance Urine Clear [facility] PH 6.0 5.0 - 9.0 [facility] Glucose Urine UA Negative Negative mg/dL [facility] Urine Blood Negative Negative [facility] Specific [place] - Urine <=1.005 1.005 - 1.025 [facility] Urine Protein Negative Neg-Trace mg/dL [facility] Urine Ketones Negative Negative mg/dL [facility] Nitrite Urine Negative Negative [facility] Leukocyte Esterase Urine Negative Negative [facility] 01/28/2025 4:20 PM EDT 01/28/2025 4:24 PM EDT Narrative [facility] - 01/28/2025 5:04 PM EDT [id number], Clean Catch Generic External Data Provider LAB URINE ORDERAB LES Final Result Performing Organization Address [facility] Co de Phone Number [facility] [address] [place] [phone] * Ethanol (01/28/2025 2:09 PM EDT) Pathologist [facility] ETHANOL (MG/DL) IN SER/PLAS <10 mg/dL [facility] Comment:Serum/plasma ethanol results are to be used formedical/treatment purposes only. 01/28/2025 2:09 PM EDT 01/28/2025 2:13 PM EDT Generic External Data Provider LAB BLOOD ORDERAB LES Final Result Performing Organization Address [facility] de Phone Number [facility] [address] [place] [phone] * (ABNORMAL) CBC auto differential (01/28/2025 2:09 PM EDT) [facility] White Blood Count 9.6 4.8 - 10.8 X10*3/uL [facility] Red Blood Count 4.07(L) 4.20 - 5.50 X10*6/uL [facility] Hemoglobin 11.6(L) 12.0 - 16.0 g/dl [facility] Hematocrit 35.8(L) 37.0 - 47.0 % [facility] Mean Corpuscular Volume 88.0 80.0 - 98.0 fL [facility] Mean Corpuscular Hemoglobin 28.5 27.0 - 33.0 pg [facility] Mean Corpuscular HGB Conc 32.4 31.0 - 35.0 g/dl [facility] Red Cell Distribution Width 14.6 11.0 - 16.0 % [facility] Platelet Count 233 160 - 400 X10*3/uL [facility] Mean Platelet Volume 9.5 9.4 - 12.3 fL [facility] Neutrophils Percent Auto 63.5 45 - 73 % [facility] Imm Gran Pct Auto 0.6(H) 0.0 - 0.4 % [facility] Lymphocytes Percent Auto 28.0 20 - 40 % [facility] Monocytes Percent Auto 6.7 2 - 11 % [facility] Eosinophils Percent Auto 1.0 0 - 4 % [facility] Basophils Percent Auto 0.2 0 - 2 % [facility] NRBC Pct Auto 0.0 0.0 - 0.2 /100WBC [facility] Neutrophils Absolute Auto 6.1 2.0 - 8.3 x10*3/uL [facility] Imm Gran Abs Auto 0.06(H) 0.00 - 0.03 X10*3/uL [facility] Lymphocytes Absolute Auto 2.7 1.2 - 4.9 X10*3/uL [facility] Monocytes Absolute Auto 0.6 0.1 - 1.2 X10*3/uL [facility] Eosinophils Absolute Auto 0.1 0.0 - 0.4 X10*3/uL [facility] Basophils Absolute Auto 0.0 0.0 - 0.2 X10*3/uL [facility] NRBC Abs Auto 0.000 0.0 - 0.012 X10*3/uL [facility] 01/28/2025 2:09 PM EDT 01/28/2025 2:13 PM EDT us Generic External Data Provider LAB BLOOD ORDERAB LES Final Result [facility] [address] [place] [phone] * Magnesium (01/28/2025 2:09 PM EDT) Magnesium 1.7 1.6 - 2.6 mg/dL [facility] 01/28/2025 2:09 PM EDT 01/28/2025 2:13 PM EDT us Generic External Data Provider LAB BLOOD ORDERAB LES Final Result Performing Organization Address [facility] Co de Phone Number [facility] [address] [place] [phone] * Lipase (01/28/2025 2:09 PM EDT) Lipase 17 8 - 78 U/L [facility] 01/28/2025 2:09 PM EDT 01/28/2025 2:13 PM EDT us Generic External Data Provider LAB BLOOD ORDERAB LES Final Result Performing Organization Address [facility] de Phone Number [facility] [address] [place] [phone] * Acetaminophen level (01/28/2025 2:09 PM EDT) Acetaminophen LAB <3 <30 mcg/mL [facility] 01/28/2025 2:09 PM EDT 01/28/2025 2:13 PM EDT us Generic External Data Provider LAB BLOOD ORDERAB LES Final Result Performing Organization Address [facility] de Phone Number [facility] [address] [place] [phone] * (ABNORMAL) Salicylate (01/28/2025 2:09 PM EDT) Salicylate <5.0(L) 15 - 30 mg/dL [facility] 01/28/2025 2:09 PM EDT 01/28/2025 2:13 PM EDT us Generic External Data Provider LAB BLOOD ORDERAB LES Final Result Performing Organization Address [facility] Co de Phone Number [facility] [address] [place] [phone] * (ABNORMAL) Comprehensive Metabolic Panel (01/28/2025 2:09 PM EDT) Sodium 141 135 - 145 mmol/L [facility] Potassium 4.5 3.3 - 5.1 mmol/L [facility] Chloride 107 96 - 108 mmol/L [facility] Carbon Dioxide 26 22 - 29 mmol/L [facility] Anion Gap 13 12 - 20 [facility] Urea Nitrogen (BUN) 11 9 - 16 mg/dL [facility] Creatinine, Serum 0.76 0.5 - 1.4 mg/dL [facility] Creatinine Clr Calc Pharmacy 109.2 [facility] Comment:Provided height and weight: 162.56 cm,113.398 kg.eGFR (calculated from the MDRD study equation) and eCrCl(calculated from the Cockcroft-Gault equation) are based ondifferent parameters and may not yield comparable results.If eCrCl result is absurd, please check patient'sheight/weight. Estimated Glomerular Filt Rate >60 [facility] Comment:Chronic Kidney Disea se: Estimated GFR < 60 mL/min/1.06r2Xdljsg Kidney Disease: Estimated GFR < 15 mL/min/1.73m2 Glucose 162(H) 60 - 115 mg/dL [facility] Calcium 8.6 8.4 - 10.2 mg/dL [facility] Bilirubin, Total 0.1 0.0 - 1.0 mg/dL [facility] Aspartate Amino Transferase 22 5 - 31 U/L [facility] Alanine Aminotransferase 27 0 - 31 U/L [facility] Total Protein 6.0(L) 6.5 - 8.0 g/dL [facility] Albumin Level 3.7 3.5 - 5.0 g/dL [facility] Alkaline Phosphatase 55 39 - 117 U/L [facility] 01/28/2025 2:09 PM EDT 01/28/2025 2:13 PM EDT us Generic External Data Provider LAB BLOOD ORDERAB LES Final Result [facility] [address] [place] [phone] * (ABNORMAL) Lipid Panel, Standard (10/01/2024 4:21 PM EDT) Triglycerides 189(H) <150 mg/dL [facility] Comment:Desirable Triglyceri de: less than 150 mg/dLBorderline High Triglyceride 150-199 mg/dLHigh Triglyceride: 200-499 mg/dLVery High Triglyceride: greater than or equal to 5OO mg/dL Cholesterol 170 <200 mg/dL [facility] Comment:Desirable Cholestero l: less than 200 mg/dLBorderline High Cholesterol: 200-239 mg/dLHigh Cholesterol: greater than 239 mg/dL LDL Cholesterol Calculated 99 <100 mg/dL [facility] Comment:Desirable LDL: less than 100 mg/dLNear Optimal/Above Optimal LDL: 110- 129 mg/dLBorderline High LDL: 130-159 mg/dLHigh LDL: 160-189 mg/dLVery High LDL: greater than or equal to 190 mg/dL HDL Cholesterol 34(L) >40 mg/dL [facility] Comment:Desirable HDL: great er than 40 mg/dL Note: This HDL assay may give artificially low results in patients with liver disease. Blood Venous blood specimen / Unknown 10/01/2024 4:21 PM EDT 10/01/2024 5:40 PM EDT us Jd Guevara MD LAB BLOOD ORDERABL ES Final Result [facility] [address] [place] [phone] * POCT HGB A1C (10/01/2024 4:20 PM EDT) Hemoglobin A1C 5.6 4.0 - 6.0 % QC Media Lot # [id number] Lot# Expiration Date [id number] Blood 10/01/2024 4:20 PM EDT Alisia Francois MD POINT OF CARE TEST ENTER/ED IT ORDERABLES Final Result * BI Mammogram Screening Tomosynthesis Bilateral (07/12/2022 10:15 AM EST) Anatomical Region Laterality Modality Breast Bilateral Mammography 07/12/2022 10:1 5 AM EST Narrative 07/13/2022 2:26 PM EST [facility] [address] [place] [address] Mammography Report Signed Patient: Yuni Dhillon MR#: [id number] : 1975 Acct:[id number] Age/Sex: 46 / F ADM Date: 07/12/22 Loc: HO.MAMMO Attending Dr: Gregorio Patel CNM Ordering Physician: GREGORIO PATEL CNM Results: 1 Negative Date of Service: 07/12/22 Follow Up: 1 Year From [facility] Mammogram Procedure(s): MM tomosynthesis screening BI Accession Number(s): [id number] cc: GREGORIO PATEL CNM EXAMINATION: MM SCREENING [...] in OV> 07/13/22 1423 DD/ 1015 TD/TT: Manager Statistical: NISHANT Procedure Note Donotuseinterpreter, Image - 07/13/2022 Jessica [facility] [address] [place], [place] [address] Mammography Report Signed Patient: Yuni DhillonMR#: [id number] : 1975Acct:[id number] Age/Sex: 46 / FADM Date: 07/12/22 Loc: HO.MAMMO Attending Dr: Gregorio Paetl CNM Ordering Physician: GREGORIO PATELesults: 1 Negative Date of Service: 07/12/22Follow Up: 1 Year From [facility] Mammogram Procedure(s): MM tomosynthesis screening BI Accession Number(s): [id number] cc: GREGORIO PATEL CNM EXAMINATION: MM SCREENING [...] in OV> 07/13/22 1423 DD/ 1015 TD/TT: Manager Statistical: DILLARD [facility] External Provider IMG BI PROCEDURES Final Result * Fecal Globin by Immunochemistry (07/01/2022 12:00 AM EST) Fecal Globin By Immunochemistry SEE NOTE [employer] [place] [employer] Comment: FECAL GLOBIN BY IMMUNOCHEMISTRY Micro Number: [id number] Test Status: Final Specimen Source: Insure (tm) fobt test card Specimen Quality: Adequate Fecal Globin: Not Detected 07/01/2022 07/10/2022 8:5 2 PM EST Narrative [facility] - 07/11/2022 8:49 AM EST FASTING: UNKNOWN [facility] External Provider LAB BODY FLUIDS AND STOOLS ORDERABLES Final Result [facility] [address], [place] [address] [employer] [place] [employer] [address] [facility], (Nl2) [place] [address] * HIV-1 RNA, Quantitative, Real-Time PCR with Reflex to Genotype (RTI, PI, Integrase) (06/26/2022 10:02 AM EST) HIV 1 RNA, QN PCR NOT DETECTED copies/mL [facility] [employer] [facility], HIV 1 RNA, QN PCR NOT DETECTED Log copies/mL [facility]/N [employer] [facility], Comment: REFERENCE RANGE: NOT DETECTED copies/mL NOT DETECTED Log copies/mL This test was performed using Real-Time Polymerase Chain Reaction. Reportable range is 20 to 10,000,000 copies/mL (1.30-7.00 Log copies/mL). 06/26/2022 10:0 2 AM EST 06/26/2022 10:02 AM EST Narrative [facility] - 06/29/2022 9:27 PM EST FASTING:YES FASTING: YES Jd Guevara MD LAB BLOOD ORDERABL ES Final Result Performing Organization Address [facility] de Phone Number [address], [facility] [place] [phone] [employer] [facility], [address] [place] [address] * Hepatitis C Antibody with Reflex to HCV, RNA, Quantitative, Real-Time PCR (06/26/2022 10:02 AM EST) Hepatitis C Antibody NON-REACT PENNIE NON-REACT PENNIE [employer] [place] [employer] Index <0.02 <1.00 [employer] [place] [employer] Comment: HCV antibody was non-reactive. There is no laboratory evidence of HCV infection. In most cases, no further action is required. However, if recent HCV exposure is suspected, a test for HCV RNA (test code 54307) is suggested. For additional information please refer to http://education.[employer]faq/VVX42h2 (This link is being provided for informational/ educational purposes only.) Blood Venous blood specimen / Unknown 06/26/2022 10:02 AM EST 06/26/2022 10:02 AM EST Narrative [facility] - 06/29/2022 9:27 PM EST FASTING:YES FASTING: YES Jd Guevara MD LAB BLOOD ORDERABL ES Final Result Performing Organization Address [facility] Co de Phone Number [address], [place] [address] [employer] [place] [employer] [address] [place] [address], ([address]2) [place] [address] * THINPREP PAP (12/06/2020 10:21 AM EDT) Clinical Information: None given [facility] COMMENT SEE COMMENT [facility] Comment: EXPLANATORY NOTE: The Pap is a screening test for cervical cancer. It is not a diagnostic test and is subject to false negative and false positive results. It is most reliable when a satisfactory sample, regularly obtained, is submitted with relevant clinical findings and history, and when the Pap result is evaluated along with historic and current clinical information. Radiator Mechanic : SEE COMMENT [facility] Comment: HJP, CT(ASCP) CT screening location: [place] [address] Interpretation/R esult: Negative for intraepithelial lesion or malignancy. [facility] LMP: 11/11/2020 [facility] Prev. BX: NONE GIVEN [facility] Prev. PAP: NONE GIVEN [facility] SOURCE: None given [facility] Statement Of Adequacy: SEE COMMENT [facility] Comment: Satisfactory for evaluation. Endocervical/transformation zone component absent. 12/06/2020 10:2 1 AM EDT Gregorio GIBBS LAB PATHOLOGY ORDERABLES Final Result Performing Organization Address [facility] de Phone Number [facility] [address] * HPV mRNA E6/E7 (12/06/2020 10:21 AM EDT) HPV nRNA E6/E7 Not Detected Not Detected [facility] Comment: Methodology: Beet End Supervisor-Mediated Amplification This assay detects E6/E7 viral messenger RNA (mRNA) from 14 high-risk HPV types (16,18,31,33,35,39,45,51,52,56,58,59,66,68). The analytical performance characteristics of this assay have been determined by [employer] The modifications have not been cleared or approved by the FDA. This assay has been validated pursuant to the CLIA regulations and is used for clinical purposes. For additional information, please refer to http://education.[employer]/faq/GAK484j3 (This link if provided for information/ educational purposes only.) 12/06/2020 10:2 1 AM EDT Gregorio GIBBS LAB BLOOD ORDERABLES Zoe l Result Performing Organization Address [facility] Co de Phone Number [facility] [address] [place] [address], * MICROALBUMIN, RANDOM (07/09/2019 12:04 PM EST) CREATININE, RANDOM URINE 7.35 MG/DL [facility] MICALB/CRE RATIO RANDOM URINE Test not performed ug/mg cr [facility] Comment: Unable to calculate albumin/creatinine ratio due to low microalbumin or creatinine result. MICROALBUMIN, RANDOM URINE < 5.0 MG/[facility] 07/09/2019 12:0 4 PM EST us Jd Guevara MD HISTORICAL/NON ORD ERABLE LABS Final Result Performing Organization Address City/State/[facility] Co de Phone Number [facility] [address] from Last 3 Months or Most Recently Relevant to Health Maintenance Insurance [employer] C3 Care Teams Cafeteria Counter Attendant Relationship Specialty Start Date End Date Jd Cordova MD [address] [place] [id number] PCP - General Internal Medicine 06/30/19
--- OUTSIDE RECORDS SUMMARY | 2025-01-28 17:28 | XMS_ITS | Encounter Summary ---
Author Organization [employer] Address [address] [place] [address] 7 [place] [address] Care Team Providers Care Heavy Equipment Operator/Paver Name Role Phone Jd Cordova MD Primary Care Prov ider Reason for Visit * Reason Onset Date Comments Med Refill 05/01/2023 Encounter Details Date Type Department Care Team ([facility] st Contact Info) Description 05/01/2023 Telephone [facility] MED & PEDS [address] [place], [place] [phone] Jd Cordova MD 505 [place] [address] Med Refill Social History Tobacco Use Types [...] Miscellaneous Notes * Telephone Encounter - Estuardo Maecdo - 05/01/2023 4:49 PM EST Tc from [facility] working with [employer] calling to request 4 times daily and needles for Lantus SoloStar 100 UNIT/ML pen. If any questions contact [facility] at [phone]. documented in this encounter Plan of Treatment Not on file documented as of this encounter Visit Diagnoses Not on filedocumented in this encounter Care Teams Heavy Equipment Operator/Paver Relationship Specialty Start Date End Date Jd Cordova MD [address] [place] [id number] PCP - General Internal Medicine 06/30/19 documented as of this encounter
--- OUTSIDE RECORDS SUMMARY | 2025-01-28 17:28 | XMS_ITS | Encounter Summary ---
Author Organization [employer] Address [address] [place] [address] [address], [place] [address] Care Team Providers Care Bleach Machine Operator Name Role Phone Jd Cordova MD Primary Care Prov ider Encounter Details Date Type Department Care Team (Late st Contact Info) Description 02/20/2023 Abstract [facility] [address] [place] [address] Jd Cordova MD [address] [place], [place] [phone] Social History Tobacco Use Types Packs/Day Years [...] on filedocumented in this encounter Care Teams Bleach Machine Operator Relationship Specialty Start Date End Date Jd Cordova MD 505 [place] [address] PCP - General Internal Medicine 06/30/19 documented as of this encounter
--- OUTSIDE RECORDS SUMMARY | 2025-01-28 17:28 | XMS_ITS | Encounter Summary ---
Author Organization [employer] Address [address] [facility] [address] [place] [address] Care Team Providers Care Teacher Hearing Impaired Name Role Phone Jd Cordova MD Primary Care Prov ider Reason for Visit * Reason Onset Date Comments Medication Question 09/26/2023 Encounter Details Date Type Department Care Team ([facility] st Contact Info) Description 09/26/2023 Telephone [facility]INE 230 [place] [address] Jd Cordova MD 505 [place], [place] [phone] Medication Question Social History Tobacco Use Types [...] - 09/26/2023 10:41 AM EDT Tc from [facility], [facility], calling in regards to Senna-Gen 8.6 mg. Pt was prescribed Senna-Gen by psychiatrist but psychiatrist is no longer working in office and [facility] is requesting for pcp to sign medication for pt to continue taking it. If any questions you can contact [facility] at [phone]. documented in this encounter Plan of Treatment Not on file documented as of this encounter Visit Diagnoses Not on filedocumented in this encounter Care Teams Teacher Hearing Impaired Relationship Specialty Start Date End Date Jd Cordova MD [address] [place] [phone] PCP - General Internal Medicine 06/30/19 documented as of this encounter
--- OUTSIDE RECORDS SUMMARY | 2025-01-28 17:28 | XMS_ITS | Encounter Summary ---
Author Organization [employer] Address [address] [facility] 7 [place] [address] Care Team Providers Care Auto Body Detailer Name Role Phone Jd Cordova MD Primary Care Prov ider Reason for Visit * Reason Onset Date Comments Durable Medical Equipment 04/25/2023 Encounter Details Date Type Department Care Team (Late st Contact Info) Description 04/25/2023 Telephone [facility] MEDICINE [address] [place] [address] Jd Cordova MD 505 [place] [address] Durable Medical Equipment Social History Tobacco Use [...] AM EST Tc from [facility] with Adult Custodial requesting DME. Diabetics shoes To be send [employer] Any questions contact [facility] [phone] documented in this encounter Plan of Treatment Not on file documented as of this encounter Visit Diagnoses Not on filedocumented in this encounter Care Teams Auto Body Detailer Relationship Specialty Start Date End Date Jd Cordova MD [address] [place] [id number] PCP - General Internal Medicine 06/30/19 documented as of this encounter
--- OUTSIDE RECORDS SUMMARY | 2025-01-28 17:28 | XMS_ITS | Encounter Summary ---
Author Organization [employer] Address [address] [place] [address] Care Team Providers Care Tape Recorder Repairer Name Role Phone Jd Cordova MD Primary Care Prov ider Reason for Visit * Reason Onset Date Comments Medication Question 08/08/2023 Encounter Details Date Type Department Care Team ([facility] st Contact Info) Description 08/08/2023 Telephone [facility] MED & PEDS [address] [place], [place] [phone] Jd Cordova MD 505 [place] [address] Medication Question Social History Tobacco Use Types [...] on filedocumented in this encounter Care Teams Tape Recorder Repairer Relationship Specialty Start Date End Date Jd Cordova MD [address] [place] [id number] PCP - General Internal Medicine 06/30/19 documented as of this encounter
--- OUTSIDE RECORDS SUMMARY | 2025-01-28 17:28 | XMS_ITS | Encounter Summary ---
Author Organization [employer] Address [address] [place] [id number] Care Team Providers Care Van Driver Helper Name Role Phone Jd Cordova MD Primary Care Prov ider Reason for Visit * Reason Onset Date Comments Referral 05/23/2023 Encounter Details Date Type Department Care Team ([facility] st Contact Info) Description 05/23/2023 Telephone [facility] PEDS 505 [place], [place] [phone] Jd Cordova MD 505 [place] [address] Referral Social History Tobacco Use Types Packs/Day [...] - 05/23/2023 9:53 AM EST Tc from [facility] regarding referral. Location: Dr Lopez's office [facility] [address] Date: 06/15/22 Time: N/A Fax: N/A Specialty: Pediatry (Renewal of Referral ) documented in this encounter Plan of Treatment Not on file documented as of this encounter Visit Diagnoses Not on filedocumented in this encounter Care Teams Van Driver Helper Relationship Specialty Start Date End Date Jd Cordova MD [address] [place] [phone] PCP - General Internal Medicine 06/30/19 documented as of this encounter
[2025-01-28 20:49] VITALS: BP 158/75; PULSE 95; RESP 18; TEMP 36.1; O2SAT 100
[2025-01-28 21:55] VITALS: PULSE 84; RESP 18
[2025-01-29 00:38] LABS: Glucose, Whole Blood 213 mg/dL (60-115)
[2025-01-29] MEDS: Insulin Glargine,Hum.rec.anlog 100 UNIT/ML 10 ML VIAL 70 UNIT SUBCUT ×2 (00:45→20:52)
[2025-01-29 00:46] VITALS: BP 142/80; PULSE 90
--- NOTE | 2025-01-29 00:51 | PC.NURSE ---
pt medicated per mar.
--- NOTE | 2025-01-29 06:55 | PC.NURSE ---
Care of Pt assumed at change of shift. Pt is observed resting quietly with eye closed. NAD noted. Breakfast tray left at bedside.
[2025-01-29 10:12] VITALS: BP 133/67
[2025-01-29] MEDS: Ferrous Sulfate 324 MG TABLET.DR PO (10:12)
[2025-01-29 10:13] VITALS: BP 133/67; PULSE 94; RESP 16; TEMP 35.8; O2SAT 99
[2025-01-29 12:20] VITALS: BP 128/78; PULSE 90; RESP 17; TEMP 36.5; O2SAT 99
[2025-01-29 12:40] LABS: Glucose, Whole Blood 183 mg/dL (60-115)
[2025-01-29 12:56] VITALS: BMI 46.0
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
[2025-01-29 17:07] LABS: Glucose, Whole Blood 194 mg/dL (60-115)
[2025-01-29 19:31] VITALS: BP 139/78; PULSE 91; RESP 18; TEMP 36.4; O2SAT 98
[2025-01-29 20:46] LABS: Glucose, Whole Blood 249 mg/dL (60-115)
[2025-01-29 20:53] VITALS: BP 131/66; PULSE 97
[2025-01-30 08:00] VITALS: BP 113/53; PULSE 84; RESP 16; TEMP 36.4; O2SAT 97
[2025-01-30 08:16] LABS: Glucose, Whole Blood 135 mg/dL (60-115)
[2025-01-30] MEDS: Ferrous Sulfate 324 MG TABLET.DR PO (08:43)
[2025-01-30 09:04] LABS: Hemoglobin A1C 132.7767 umol/L; Total Hemoglobin (HGBA1C) 3272.7492 umol/L
--- NOTE | 2025-01-30 09:05 | HO.PSYCHPN ---
Subjective Subjective Date of Service: 01/30/25 Reason For Visit: psychosis with CAH to suicide Subjective Notes: Conditional Voluntary Healthcare Proxy: No Guardianship: No Medical Problems Affecting Mental Status: No Interim History: Medical record and nursing notes reviewed; case discussed during rounds with team/nursing staff, and met with patient for supportive therapy/psychoeducation, as well as medication management. Patient slept for 8 hours, compliant with meds and meal. Denies side effects. Report SI and AH but able to control and be safe. Feeling safe on the unit. Patient is isolative in room, kept to self and rested in bed. Review with patient regarding VPA level which is subtherapeutic which she might miss the dose the night when was in the ED. Clozaril level pending. Patient is calm, pleasant, and cooperative. No manage or behavior issues. Medication Compliance: Yes Side effects from medications: No Attending Groups: Intermittent Review of Systems Acute medical concerns: No Medical Review of Systems: unchanged Review of Systems Review of Systems Denies Constitutional: Reports no additional constitutional complaints Cardiovascular: Reports no additional cardiovascular complaints Psychiatric: Reports as per HPI Mental Status Exam Mental Status Exam Narrative: Pt is alert and oriented; behavior is cooperative and calm; dressed in hospital attire; mood is described as okl; eye contact appropriate; Speech is normal rate, volume and not pressured; thought process is organized; Thought content is on tx; report SI and AH wihtout plan/intent. No SIB/HI. . Diagnostics Vital Signs (24Hr): Vital Signs - 24 hr 01/29/25 10:12 01/29/25 10:13 01/29/25 10:13 Temperature 96.4 F L Pulse Rate 94 94 Respiratory Rate 16 Blood Pressure 133/67 133/67 133/67 Pulse Oximetry 99 Oxygen Delivery Method Room Air 01/29/25 12:20 01/29/25 19:31 01/29/25 20:53 Temperature 97.7 F 97.5 F Pulse Rate 90 91 97 Respiratory Rate 17 18 Blood Pressure 128/78 139/78 131/66 Pulse Oximetry 99 98 Oxygen Delivery Method Room Air Room Air 01/30/25 08:00 Temperature 97.6 F Pulse Rate 84 Respiratory Rate 16 Blood Pressure 113/53 L Pulse Oximetry 97 Oxygen Delivery Method Room Air BMI result Body Mass Index 46.0 Labs 01/28/25 14:09 01/28/25 14:09 Labs: Laboratory Results - last 48 hr 01/28/25 01/28/25 01/29/25 14:09 16:20 00:35 WBC 9.6 RBC 4.07 L Hgb 11.6 L Hct 35.8 L MCV 88.0 MCH 28.5 MCHC 32.4 RDW 14.6 Plt Count 233 MPV 9.5 Immature Gran % (Auto) 0.6 H Neut % (Auto) 63.5 Lymph % (Auto) 28.0 [place] % (Auto) 6.7 Eos % (Auto) 1.0 Baso % (Auto) 0.2 Lymph # (Auto) 2.7 [place] # (Auto) 0.6 Eos # (Auto) 0.1 Baso # (Auto) 0.0 Abs Immat Gran (auto) 0.06 H Absolute Neuts (auto) 6.1 Absolute Nucleated RBC 0.000 Nucleated RBC % (auto) 0.0 Sodium 141 Potassium 4.5 Chloride 107 Carbon Dioxide 26 Anion Gap 13 BUN 11 Creatinine 0.76 Estim Creat Clear Calc 109.2 Estimated GFR > 60 POC Glucose 213 H Random Glucose 162 H Estimat Average Glucose Hemoglobin A1c % Calcium 8.6 Magnesium 1.7 Total Bilirubin 0.1 AST 22 ALT 27 Alkaline Phosphatase 55 Total Protein 6.0 L Albumin 3.7 Lipase 17 Urine Color Yellow Urine Appearance Clear Urine pH 6.0 Ur Specific [place] <= 1.005 Urine Protein Negative Urine Glucose (UA) Negative Urine Ketones Negative Urine Blood Negative Urine Nitrite Negative Ur Leukocyte Esterase Negative Salicylates < 5.0 L Urine Opiates Screen Not Detected Ur Buprenorphine Scrn Not Detected Ur Oxycodone Screen Not Detected Urine Methadone Screen Not Detected Urine Fentanyl Screen Not Detected Acetaminophen < 3 Ur Barbiturates Screen Not Detected Valproic Acid Ur Phencyclidine Scrn Not Detected Ur Amphetamines Screen Not Detected U Benzodiazepines Scrn Not Detected Urine Cocaine Screen Not Detected U Marijuana (THC) Screen Not Detected Ethyl Alcohol < 10 01/29/25 01/29/25 01/29/25 12:36 17:03 20:11 WBC RBC Hgb Hct MCV MCH MCHC RDW Plt Count MPV Immature Gran % (Auto) Neut % (Auto) Lymph % (Auto) [place] % (Auto) Eos % (Auto) Baso % (Auto) Lymph # (Auto) [place] # (Auto) Eos # (Auto) Baso # (Auto) Abs Immat Gran (auto) Absolute Neuts (auto) Absolute Nucleated RBC Nucleated RBC % (auto) Sodium Potassium Chloride Carbon Dioxide Anion Gap BUN Creatinine Estim Creat Clear Calc Estimated GFR POC Glucose 183 H 194 H Random Glucose Estimat Average Glucose Hemoglobin A1c % Calcium Magnesium Total Bilirubin AST ALT Alkaline Phosphatase Total Protein Albumin Lipase Urine Color Urine Appearance Urine pH Ur Specific [place] Urine Protein Urine Glucose (UA) Urine Ketones Urine Blood Urine Nitrite Ur Leukocyte Esterase Salicylates Urine Opiates Screen Ur Buprenorphine Scrn Ur Oxycodone Screen Urine Methadone Screen Urine Fentanyl Screen Acetaminophen Ur Barbiturates Screen Valproic Acid 38.7 L Ur Phencyclidine Scrn Ur Amphetamines Screen U Benzodiazepines Scrn Urine Cocaine Screen U Marijuana (THC) Screen Ethyl Alcohol 01/29/25 01/30/25 01/30/25 20:41 07:59 08:38 WBC RBC Hgb Hct MCV MCH MCHC RDW Plt Count MPV Immature Gran % (Auto) Neut % (Auto) Lymph % (Auto) [place] % (Auto) Eos % (Auto) Baso % (Auto) Lymph # (Auto) [place] # (Auto) Eos # (Auto) Baso # (Auto) Abs Immat Gran (auto) Absolute Neuts (auto) Absolute Nucleated RBC Nucleated RBC % (auto) Sodium Potassium Chloride Carbon Dioxide Anion Gap BUN Creatinine Estim Creat Clear Calc Estimated GFR POC Glucose 249 H 135 H Random Glucose Estimat Average Glucose 123 Hemoglobin A1c % 5.9 Calcium Magnesium Total Bilirubin AST ALT Alkaline Phosphatase Total Protein Albumin Lipase Urine Color Urine Appearance Urine pH Ur Specific [place] Urine Protein Urine Glucose (UA) Urine Ketones Urine Blood Urine Nitrite Ur Leukocyte Esterase Salicylates Urine Opiates Screen Ur Buprenorphine Scrn Ur Oxycodone Screen Urine Methadone Screen Urine Fentanyl Screen Acetaminophen Ur Barbiturates Screen Valproic Acid Ur Phencyclidine Scrn Ur Amphetamines Screen U Benzodiazepines Scrn Urine Cocaine Screen U Marijuana (THC) Screen Ethyl Alcohol Medications Medications Current Medications Acetaminophen (Acetaminophen 325 Mg Tablet) 650 mg PO Q6H PRN PRN Reason: Headache/Pain, Scale 1-10 Al Hydroxide/Mg Hydroxide (Magnesium Hydrox/Alum Hydrox 30 Ml Oral.Susp) 30 ml PO Q6H PRN PRN Reason: Heartburn/Nausea Ascorbic Acid (Ascorbic Acid 500 Mg Tablet) 500 mg PO BID [facility] Last Admin: 01/30/25 08:43 Dose: 500 mg Clozapine (Clozapine 100 Mg Tablet) 100 mg PO DAILY [facility] Last Admin: 01/30/25 08:44 Dose: 100 mg Clozapine (Clozapine 25 Mg Tablet) 25 mg PO DAILY [facility] Last Admin: 01/30/25 08:43 Dose: 25 mg Clozapine (Clozapine 100 Mg Tablet) 300 mg PO BEDTIME [facility] Last Admin: 01/29/25 20:53 Dose: 300 mg Dextrose (Dextrose 50 % 25 Gm/50 Ml Syringe) 25 gm IVPUSH Q15M PRN; Protocol PRN Reason: per Hypoglycemia Standing Ord. Divalproex Sodium (Divalproex Sodium Er 500 Mg Tab.Er.24h) 2,500 mg PO BEDTIME [facility] Last Admin: 01/29/25 20:52 Dose: 2,500 mg Docusate Sodium (Docusate Sodium 100 Mg Capsule) 100 mg PO BID [facility] Last Admin: 01/30/25 08:44 Dose: 100 mg Ferrous Sulfate (Ferrous Sulfate 324 Mg Tablet.Dr) 324 mg PO DAILY [facility] Last Admin: 01/30/25 08:43 Dose: 324 mg Glucose (Glucose Gel 15 Gm Gel..Gram.) 15 gm PO Q15M PRN; Protocol PRN Reason: per Hypoglycemia Standing Ord. Guaifenesin (Guaifenesin 200 Mg/10 Ml 10 Ml Liquid) 10 ml PO Q4H PRN PRN Reason: Cough Insulin Glargine (Insulin Glargine,Hum.Rec.Anlog 100 Unit/Ml 10 Ml Vial) 70 unit SUBCUT BEDTIME [facility] Last Admin: 01/29/25 20:52 Dose: 70 unit Insulin Human Lispro (Insulin Lispro 100 Unit/Ml 3 Ml Vial) 0 unit SUBCUT QIDACHS [facility]; Protocol Last Admin: 01/30/25 08:20 Dose: Not Given Lisinopril (Lisinopril 10 Mg Tablet) 10 mg PO DAILY [facility]; Protocol Last Admin: 01/30/25 08:43 Dose: 10 mg Magnesium Hydroxide (Milk Of Magnesia 30 Ml Oral.Susp) 30 ml PO DAILY PRN PRN Reason: Constipation Metformin HCl (Metformin Hcl Er 500 Mg Tab.Er.24h) 1,000 mg PO BIDWM [facility] Last Admin: 01/30/25 08:43 Dose: 1,000 mg Metoprolol Tartrate (Metoprolol Tartrate 25 Mg Tablet) 25 mg PO BID [facility]; Protocol Last Admin: 01/30/25 08:44 Dose: 25 mg Nicotine Polacrilex (Nicotine Polacrilex 2 Mg Gum) 2 mg BUCCAL Q2H PRN PRN Reason: Nicotine Cravings Omeprazole (Omeprazole 20 Mg Capsule.Dr) 20 mg PO DAILY@0630 [facility] Last Admin: 01/30/25 06:17 Dose: 20 mg Ondansetron HCl (Ondansetron Odt 4 Mg Tab.Rapdis) 4 mg TRANSLINGU DAILY PRN PRN Reason: Nausea and Vomiting Perphenazine (Perphenazine 4 Mg Tablet) 4 mg PO BID [facility] Last Admin: 01/30/25 08:44 Dose: 4 mg Senna (Sennosides 8.6 Mg Tablet) 8.6 mg PO DAILY [facility] Last Admin: 01/30/25 08:43 Dose: 8.6 mg Sertraline HCl (Sertraline Hcl 100 Mg Tablet) 100 mg PO DAILY [facility] Last Admin: 01/30/25 08:43 Dose: 100 mg Trazodone HCl (Trazodone Hcl 50 Mg Tablet) 50 mg PO BEDTIME MRX1 PRN PRN Reason: Insomnia Allergies Allergies Allergy/AdvReac Type Severity Reaction Status Date / Time Sulfa (Sulfonamide Allergy Intermediate PUFFY EYES Verified 01/28/25 13:29 Antibiotics) (SULFA (SULFONAMIDE ANTIBIOTICS)) Penicillins (PENICILLINS) Allergy Mild PT STATES Verified 01/28/25 13:29 NOTHING HAPPENS, ALLG LISTED ON TRANF SHEET acid Allergy Unknown Unknown Uncoded 01/28/25 13:29 Assessment & Plan Assessment & Plan (1) Schizophrenia: Qualifiers: Schizophrenia type: paranoid schizophrenia Qualified Code(s): F20.0 - Paranoid schizophrenia Status: Acute Code(s): F20.9 - Schizophrenia, unspecified (2) Depressive disorder: Status: Acute Code(s): F32.A - Depression, unspecified Plan increase zoloft from 50 mg daily to 100 mg daily to address depressed mood. continue anti-psychotic regimen of clozapine 125/300 and perphenazine 4 BID. check clozaril level. continue VPA 2500 mg QHS. check VPA level. labs otherwise unremarkable. cause of recent change unclear, [facility] will continue outpt anti-psychotic regimen over the weekend and observe for any change in Sx. 01/30/25: Patient slept for 8 hours, compliant with meds and meal. Denies side effects. Report SI and AH but able to control and be safe. Feeling safe on the unit. Patient is isolative in room, kept to self and rested in bed. Review with patient regarding VPA level which is subtherapeutic which she might miss the dose the night when was in the ED. Clozaril level pending. Patient is calm, pleasant, and cooperative. No manage or behavior issues. VPA level 38/7 on 01/29/25. Possible of missing one dose on the night she was in the ED. Pending Clozaril level Patient educated on: diagnosis, medication risk/benefits and therapeutic strategies Informed Consent: further education needed Reason for continued inpatient stay Substantial Risk for: med/psych decompensation Time Spent With Patient Time: Total time managing care of this patient today ____ minutes.
[2025-01-30 09:11] LABS: Cholesterol 183 mg/dL (<200); HDL Cholesterol 36 mg/dL (>40); Triglycerides 226 mg/dL (<150)
[2025-01-30 09:33] LABS: Free T4 (Free Thyroxine) 0.87 ng/dL (0.71-1.85); Thyroid Stimulating Hormone 3.78 uIU/mL (0.32-4.0)
[2025-01-30 09:46] LABS: Folate 4.4 ng/mL (> or = 4.0); Vitamin B12 337 pg/mL (200-900)
[2025-01-30 12:01] LABS: Glucose, Whole Blood 131 mg/dL (60-115)
[2025-01-30] MEDS: Flu Vacc TS2025-26(6mo up)/PF 0.5 ML SYRINGE IM (15:48)
[2025-01-30 16:43] LABS: Glucose, Whole Blood 153 mg/dL (60-115)
[2025-01-30 19:55] VITALS: BP 128/69; PULSE 101; RESP 16; TEMP 36.6; O2SAT 98
[2025-01-30 20:24] LABS: Glucose, Whole Blood 217 mg/dL (60-115)
[2025-01-30] MEDS: Insulin Glargine,Hum.rec.anlog 100 UNIT/ML 10 ML VIAL 70 UNIT SUBCUT (20:51)
[2025-01-31 07:59] LABS: Glucose, Whole Blood 149 mg/dL (60-115)
[2025-01-31 08:00] VITALS: BP 114/78; PULSE 104; RESP 16; TEMP 36.9; O2SAT 98
[2025-01-31] MEDS: Ferrous Sulfate 324 MG TABLET.DR PO (08:28)
[2025-01-31 12:02] LABS: Glucose, Whole Blood 184 mg/dL (60-115)
[2025-01-31 16:46] LABS: Glucose, Whole Blood 148 mg/dL (60-115)
[2025-01-31 20:00] VITALS: BP 114/67; PULSE 111; RESP 16; TEMP 36.6; O2SAT 98
[2025-01-31 20:33] LABS: Glucose, Whole Blood 257 mg/dL (60-115)
--- NOTE | 2025-01-31 20:33 | PC.NURSE ---
POC 257. examination supervisor notified.
--- NOTE | 2025-01-31 20:35 | HO.PSYCHPN ---
Subjective Subjective Date of Service: 01/31/25 Reason For Visit: psychosis with CAH to suicide Subjective Notes: Conditional Voluntary Healthcare Proxy: No Guardianship: No Medical Problems Affecting Mental Status: No Interim History: Medical record and nursing notes reviewed; case discussed during rounds with team/nursing staff, and met with patient for supportive therapy/psychoeducation, as well as medication management. Patient slept for 8 hours, compliant with medications, compliant with diabetic protocol with insulin scheduled. Spent most of the day in bed, to the unit for meals, and was working on the manual for tomorrow in the dining area. She appeared to be disheveled, do not want to shower today but plans to take shower tomorrow. Reports command hallucination is less in volume . Per nursing, observed self dialogue. Denies SI/SIB/HI. No behavior issues Medication Compliance: Yes Side effects from medications: No Attending Groups: No Review of Systems Acute medical concerns: No Medical Review of Systems: unchanged Review of Systems Review of Systems Denies Yes all other systems are reviewed and are negative Mental Status Exam Mental Status Exam Narrative: Pt is alert and oriented; behavior is cooperative and calm; isolative in room, depressed, dressed in hospital attire; mood is described as better; eye contact appropriate. Poor ADL's. Speech is normal rate, volume and not pressured; thought process is organized; Thought content is on tx; and report quieter CAH without plan/intent. No SI/SIB/HI.. Diagnostics Vital Signs (24Hr): Vital Signs - 24 hr 01/31/25 08:00 Temperature 98.4 F Pulse Rate 104 H Respiratory Rate 16 Blood Pressure 114/78 Pulse Oximetry 98 Oxygen Delivery Method Room Air BMI result Body Mass Index 46.0 Labs 01/28/25 14:09 01/28/25 14:09 Labs: Laboratory Results - last 48 hr 01/29/25 01/30/25 01/30/25 20:41 07:59 08:38 POC Glucose 249 H 135 H Estimat Average Glucose 123 Hemoglobin A1c % 5.9 Triglycerides 226 H Cholesterol 183 LDL Cholesterol, Calc 102 H HDL Cholesterol 36 L Vitamin B12 337 Folate 4.4 TSH 3.78 Free T4 0.87 01/30/25 01/30/25 01/30/25 11:53 16:35 20:20 POC Glucose 131 H 153 H 217 H Estimat Average Glucose Hemoglobin A1c % Triglycerides Cholesterol LDL Cholesterol, Calc HDL Cholesterol Vitamin B12 Folate TSH Free T4 01/31/25 01/31/25 01/31/25 07:49 11:55 16:41 POC Glucose 149 H 184 H 148 H Estimat Average Glucose Hemoglobin A1c % Triglycerides Cholesterol LDL Cholesterol, Calc HDL Cholesterol Vitamin B12 Folate TSH Free T4 01/31/25 20:24 POC Glucose 257 H Estimat Average Glucose Hemoglobin A1c % Triglycerides Cholesterol LDL Cholesterol, Calc HDL Cholesterol Vitamin B12 Folate TSH Free T4 Medications Medications Current Medications Acetaminophen (Acetaminophen 325 Mg Tablet) 650 mg PO Q6H PRN PRN Reason: Headache/Pain, Scale 1-10 Al Hydroxide/Mg Hydroxide (Magnesium Hydrox/Alum Hydrox 30 Ml Oral.Susp) 30 ml PO Q6H PRN PRN Reason: Heartburn/Nausea Ascorbic Acid (Ascorbic Acid 500 Mg Tablet) 500 mg PO BID [facility] Last Admin: 01/31/25 08:28 Dose: 500 mg Clozapine (Clozapine 100 Mg Tablet) 100 mg PO DAILY [facility] Last Admin: 01/31/25 08:29 Dose: 100 mg Clozapine (Clozapine 25 Mg Tablet) 25 mg PO DAILY [facility] Last Admin: 01/31/25 08:28 Dose: 25 mg Clozapine (Clozapine 100 Mg Tablet) 300 mg PO BEDTIME [facility] Last Admin: 01/30/25 20:50 Dose: 300 mg Dextrose (Dextrose 50 % 25 Gm/50 Ml Syringe) 25 gm IVPUSH Q15M PRN; Protocol PRN Reason: per Hypoglycemia Standing Ord. Divalproex Sodium (Divalproex Sodium Er 500 Mg Tab.Er.24h) 2,500 mg PO BEDTIME [facility] Last Admin: 01/30/25 20:50 Dose: 2,500 mg Docusate Sodium (Docusate Sodium 100 Mg Capsule) 100 mg PO BID [facility] Last Admin: 01/31/25 08:28 Dose: 100 mg Ferrous Sulfate (Ferrous Sulfate 324 Mg Tablet.Dr) 324 mg PO DAILY [facility] Last Admin: 01/31/25 08:28 Dose: 324 mg Glucose (Glucose Gel 15 Gm Gel..Gram.) 15 gm PO Q15M PRN; Protocol PRN Reason: per Hypoglycemia Standing Ord. Guaifenesin (Guaifenesin 200 Mg/10 Ml 10 Ml Liquid) 10 ml PO Q4H PRN PRN Reason: Cough Insulin Glargine (Insulin Glargine,Hum.Rec.Anlog 100 Unit/Ml 10 Ml Vial) 70 unit SUBCUT BEDTIME [facility] Last Admin: 01/30/25 20:51 Dose: 70 unit Insulin Human Lispro (Insulin Lispro 100 Unit/Ml 3 Ml Vial) 0 unit SUBCUT QIDACHS [facility]; Protocol Last Admin: 01/31/25 16:48 Dose: Not Given Lisinopril (Lisinopril 10 Mg Tablet) 10 mg PO DAILY [facility]; Protocol Last Admin: 01/31/25 08:28 Dose: 10 mg Magnesium Hydroxide (Milk Of Magnesia 30 Ml Oral.Susp) 30 ml PO DAILY PRN PRN Reason: Constipation Metformin HCl (Metformin Hcl Er 500 Mg Tab.Er.24h) 1,000 mg PO BIDWM [facility] Last Admin: 01/31/25 17:12 Dose: 1,000 mg Metoprolol Tartrate (Metoprolol Tartrate 25 Mg Tablet) 25 mg PO BID [facility]; Protocol Last Admin: 01/31/25 08:28 Dose: 25 mg Nicotine Polacrilex (Nicotine Polacrilex 2 Mg Gum) 2 mg BUCCAL Q2H PRN PRN Reason: Nicotine Cravings Omeprazole (Omeprazole 20 Mg Capsule.Dr) 20 mg PO DAILY@0630 [facility] Last Admin: 01/31/25 06:26 Dose: 20 mg Ondansetron HCl (Ondansetron Odt 4 Mg Tab.Rapdis) 4 mg TRANSLINGU DAILY PRN PRN Reason: Nausea and Vomiting Perphenazine (Perphenazine 4 Mg Tablet) 4 mg PO BID [facility] Last Admin: 01/31/25 08:28 Dose: 4 mg Senna (Sennosides 8.6 Mg Tablet) 8.6 mg PO DAILY [facility] Last Admin: 01/31/25 08:28 Dose: 8.6 mg Sertraline HCl (Sertraline Hcl 100 Mg Tablet) 100 mg PO DAILY [facility] Last Admin: 01/31/25 08:28 Dose: 100 mg Trazodone HCl (Trazodone Hcl 50 Mg Tablet) 50 mg PO BEDTIME MRX1 PRN PRN Reason: Insomnia Allergies Allergies Allergy/AdvReac Type Severity Reaction Status Date / Time Sulfa (Sulfonamide Allergy Intermediate PUFFY EYES Verified 01/28/25 13:29 Antibiotics) (SULFA (SULFONAMIDE ANTIBIOTICS)) Penicillins (PENICILLINS) Allergy Mild PT STATES Verified 01/28/25 13:29 NOTHING HAPPENS, ALLG LISTED ON TRANF SHEET acid Allergy Unknown Unknown Uncoded 01/28/25 13:29 Assessment & Plan Assessment & Plan (1) Schizophrenia: Qualifiers: Schizophrenia type: paranoid schizophrenia Qualified Code(s): F20.0 - Paranoid schizophrenia Status: Acute Code(s): F20.9 - Schizophrenia, unspecified (2) Depressive disorder: Status: Acute Code(s): F32.A - Depression, unspecified Plan increase zoloft from 50 mg daily to 100 mg daily to address depressed mood. continue anti-psychotic regimen of clozapine 125/300 and perphenazine 4 BID. check clozaril level. continue VPA 2500 mg QHS. check VPA level. labs otherwise unremarkable. cause of recent change unclear, possibly related to social factors at [facility]. will continue outpt anti-psychotic regimen over the weekend and observe for any change in Sx. 01/30/25: Patient slept for 8 hours, compliant with meds and meal. Denies side effects. Report SI and AH but able to control and be safe. Feeling safe on the unit. Patient is isolative in room, kept to self and rested in bed. Review with patient regarding VPA level which is subtherapeutic which she might miss the dose the night when was in the ED. Clozaril level pending. Patient is calm, pleasant, and cooperative. No manage or behavior issues. VPA level 38/7 on 01/29/25. Possible of missing one dose on the night she was in the ED. Pending Clozaril level 01/31/25: Patient slept for 8 hours, compliant with medications, compliant with diabetic protocol with insulin scheduled. Spent most of the day in bed, to the unit for meals, and was working on the manual for tomorrow in the dining area. She appeared to be disheveled, do not want to shower today but plans to take shower tomorrow. Reports command hallucination is less in volume . Per nursing, observed self dialogue. Denies SI/SIB/HI. No behavior issues. Patient educated on: medication risk/benefits and therapeutic strategies Informed Consent: further education needed Reason for continued inpatient stay Substantial Risk for: med/psych decompensation Time Spent With Patient Time: Total time managing care of this patient today ____ minutes.
[2025-01-31] MEDS: Insulin Glargine,Hum.rec.anlog 100 UNIT/ML 10 ML VIAL 70 UNIT SUBCUT (20:48)
[2025-02-01 07:15] VITALS: BP 102/56; PULSE 95; RESP 16; TEMP 36.8; O2SAT 97
[2025-02-01 07:45] LABS: Glucose, Whole Blood 109 mg/dL (60-115)
[2025-02-01] MEDS: Ferrous Sulfate 324 MG TABLET.DR PO (08:20)
[2025-02-01 08:21] VITALS: BP 102/56; PULSE 95
[2025-02-01 08:22] VITALS: BP 102/56
[2025-02-01 11:54] LABS: Glucose, Whole Blood 128 mg/dL (60-115)
--- NOTE | 2025-02-01 14:12 | HO.PSYCHPN ---
Subjective Subjective Date of Service: 02/01/25 Reason For Visit: psychosis with CAH to suicide Interim History: in bed. reports mood and AH much better. no requests or complaints. per staff, flat, taking meds. +SI, no plan. slept well. Mental Status Exam Mental Status Exam Narrative: Pt is alert and oriented; behavior is cooperative and calm; dressed in casual attire; mood is described as much better; eye contact appropriate; Speech is normal rate, loudness, and not pressured; thought process is organized; Thought content is on tx; no SI/SIBI/HI/VH expressed. AH gone down. Diagnostics Vital Signs (24Hr): Vital Signs - 24 hr 01/31/25 20:00 02/01/25 07:15 02/01/25 08:21 Temperature 97.8 F 98.2 F Pulse Rate 111 H 95 95 Respiratory Rate 16 16 Blood Pressure 114/67 102/56 L 102/56 L Pulse Oximetry 98 97 Oxygen Delivery Method Room Air Room Air 02/01/25 08:22 Temperature Pulse Rate Respiratory Rate Blood Pressure 102/56 L Pulse Oximetry Oxygen Delivery Method BMI result Body Mass Index 46.0 Labs 01/28/25 14:09 01/28/25 14:09 Labs: Laboratory Results - last 48 hr 01/30/25 01/30/25 01/31/25 16:35 20:20 07:49 POC Glucose 153 H 217 H 149 H 01/31/25 01/31/25 01/31/25 11:55 16:41 20:24 POC Glucose 184 H 148 H 257 H 02/01/25 02/01/25 07:38 11:44 POC Glucose 109 128 H Medications Medications Current Medications Acetaminophen (Acetaminophen 325 Mg Tablet) 650 mg PO Q6H PRN PRN Reason: Headache/Pain, Scale 1-10 Al Hydroxide/Mg Hydroxide (Magnesium Hydrox/Alum Hydrox 30 Ml Oral.Susp) 30 ml PO Q6H PRN PRN Reason: Heartburn/Nausea Ascorbic Acid (Ascorbic Acid 500 Mg Tablet) 500 mg PO BID [facility] Last Admin: 02/01/25 08:22 Dose: 500 mg Clozapine (Clozapine 100 Mg Tablet) 100 mg PO DAILY [facility] Last Admin: 02/01/25 08:22 Dose: 100 mg Clozapine (Clozapine 25 Mg Tablet) 25 mg PO DAILY [facility] Last Admin: 02/01/25 08:20 Dose: 25 mg Clozapine (Clozapine 100 Mg Tablet) 300 mg PO BEDTIME [facility] Last Admin: 01/31/25 20:45 Dose: 300 mg Dextrose (Dextrose 50 % 25 Gm/50 Ml Syringe) 25 gm IVPUSH Q15M PRN; Protocol PRN Reason: per Hypoglycemia Standing Ord. Divalproex Sodium (Divalproex Sodium Er 500 Mg Tab.Er.24h) 2,500 mg PO BEDTIME [facility] Last Admin: 01/31/25 20:46 Dose: 2,500 mg Docusate Sodium (Docusate Sodium 100 Mg Capsule) 100 mg PO BID [facility] Last Admin: 02/01/25 08:22 Dose: 100 mg Ferrous Sulfate (Ferrous Sulfate 324 Mg Tablet.) 324 mg PO DAILY [facility] Last Admin: 02/01/25 08:20 Dose: 324 mg Glucose (Glucose Gel 15 Gm Gel..Gram.) 15 gm PO Q15M PRN; Protocol PRN Reason: per Hypoglycemia Standing Ord. Guaifenesin (Guaifenesin 200 Mg/10 Ml 10 Ml Liquid) 10 ml PO Q4H PRN PRN Reason: Cough Insulin Glargine (Insulin Glargine,Hum.Rec.Anlog 100 Unit/Ml 10 Ml Vial) 70 unit SUBCUT BEDTIME [facility] Last Admin: 01/31/25 20:48 Dose: 70 unit Insulin Human Lispro (Insulin Lispro 100 Unit/Ml 3 Ml Vial) 0 unit SUBCUT QIDACHS [facility]; Protocol Last Admin: 02/01/25 08:20 Dose: Not Given Lisinopril (Lisinopril 10 Mg Tablet) 10 mg PO DAILY [facility]; Protocol Last Admin: 02/01/25 08:22 Dose: 10 mg Magnesium Hydroxide (Milk Of Magnesia 30 Ml Oral.Susp) 30 ml PO DAILY PRN PRN Reason: Constipation Metformin HCl (Metformin Hcl Er 500 Mg Tab.Er.24h) 1,000 mg PO BIDWM [facility] Last Admin: 02/01/25 08:22 Dose: 1,000 mg Metoprolol Tartrate (Metoprolol Tartrate 25 Mg Tablet) 25 mg PO BID [facility]; Protocol Last Admin: 02/01/25 08:21 Dose: 25 mg Nicotine Polacrilex (Nicotine Polacrilex 2 Mg Gum) 2 mg BUCCAL Q2H PRN PRN Reason: Nicotine Cravings Omeprazole (Omeprazole 20 Mg Capsule.) 20 mg PO DAILY@0630 [facility] Last Admin: 02/01/25 06:41 Dose: 20 mg Ondansetron HCl (Ondansetron Odt 4 Mg Tab.Rapdis) 4 mg TRANSLINGU DAILY PRN PRN Reason: Nausea and Vomiting Perphenazine (Perphenazine 4 Mg Tablet) 4 mg PO BID [facility] Last Admin: 02/01/25 08:22 Dose: 4 mg Senna (Sennosides 8.6 Mg Tablet) 8.6 mg PO DAILY [facility] Last Admin: 02/01/25 08:21 Dose: 8.6 mg Sertraline HCl (Sertraline Hcl 100 Mg Tablet) 100 mg PO DAILY [facility] Last Admin: 02/01/25 08:20 Dose: 100 mg Trazodone HCl (Trazodone Hcl 50 Mg Tablet) 50 mg PO BEDTIME MRX1 PRN PRN Reason: Insomnia Allergies Allergies Allergy/AdvReac Type Severity Reaction Status Date / Time Sulfa (Sulfonamide Allergy Intermediate PUFFY EYES Verified 01/28/25 13:29 Antibiotics) (SULFA (SULFONAMIDE ANTIBIOTICS)) Penicillins (PENICILLINS) Allergy Mild PT STATES Verified 01/28/25 13:29 NOTHING HAPPENS, ALLG LISTED ON TRANF SHEET acid Allergy Unknown Unknown Uncoded 01/28/25 13:29 Assessment & Plan Assessment & Plan (1) Schizophrenia: Qualifiers: Schizophrenia type: paranoid schizophrenia Qualified Code(s): F20.0 - Paranoid schizophrenia Status: Acute Code(s): F20.9 - Schizophrenia, unspecified (2) Depressive disorder: Status: Acute Code(s): F32.A - Depression, unspecified Plan increase zoloft from 50 mg daily to 100 mg daily to address depressed mood. continue anti-psychotic regimen of clozapine 125/300 and perphenazine 4 BID. check clozaril level. continue VPA 2500 mg QHS. check VPA level. labs otherwise unremarkable. cause of recent change unclear, possibly related to social factors at [facility]. will continue outpt anti-psychotic regimen over the weekend and observe for any change in Sx. 01/30/25: Patient slept for 8 hours, compliant with meds and meal. Denies side effects. Report SI and AH but able to control and be safe. Feeling safe on the unit. Patient is isolative in room, kept to self and rested in bed. Review with patient regarding VPA level which is subtherapeutic which she might miss the dose the night when was in the ED. Clozaril level pending. Patient is calm, pleasant, and cooperative. No manage or behavior issues. VPA level 38/7 on 01/29/25. Possible of missing one dose on the night she was in the ED. Pending Clozaril level 01/31/25: Patient slept for 8 hours, compliant with medications, compliant with diabetic protocol with insulin scheduled. Spent most of the day in bed, to the unit for meals, and was working on the manual for tomorrow in the dining area. She appeared to be disheveled, do not want to shower today but plans to take shower tomorrow. Reports command hallucination is less in volume . Per nursing, observed self dialogue. Denies SI/SIB/HI. No behavior issues. 02/01: in bed, rousable. limited engagement. no questions or complaints. states mood and AH have improved. would like to continue current mgmt. VPA level 38.7, clozapine level pending. continue current mgmt. Reason for continued inpatient stay Substantial Risk for: harm to self, inability to function and rapid decompensation Time Spent With Patient Time: Total time managing care of this patient today __25__ minutes.
--- NOTE | 2025-02-01 14:16 | HO.PM.IMCN ---
History of Present Illness Data of Consult Service Date: 02/01/25 Primary Care Provider: Jd Guevara MD HPI Reason for consult: Medical management 49-year-old female with a past medical history of depressive disorder, bipolar disorder, schizophrenia, type 2 diabetes, hypertension, GUS, GERD presented to the ED with command auditory hallucinations. She is admitted to inpatient psychiatric care for further treatment. On exam she is awake and alert, denies any shortness of breath, dizziness lightheadedness or any other concerning symptoms. Her blood glucose readings have been well controlled between 100s and 200s. Recent A1c is 5.9. Blood pressures are well controlled. She has no acute medical concerns. Review of Systems Review of Systems: Denies any shortness of breath, chest pain, dizziness, lightheadedness, abdominal pain or discomfort, nausea vomiting or diarrhea PMFSH Medical History Acute psychosis Gram-positive bacteremia HTN (hypertension) Diabetes Social History Household Members: Other Household Members Other:: [facility] Housing: Other Housing Other:: [facility] Do you presently have visiting nurse or other home services: No Alcohol intake: never Patient Tobacco Use Status: Current everyday Tobacco user Tobacco use type: Cigarette Cigarette Packs Per Day: 0.5 Cigarettes Per Day: 10.0 Years Smoked: 36 Smoked in Last 30 Days: Yes e-Cigarette/Vaping Use: Currently Using Patient Interested in Nicotine Replacement: No Patient Given Instructions on How to Stop Smoking: No Second Hand Smoke Exposure: Yes Currently Displaying Signs/Symptoms of Drug Intoxication Withdrawal: No Have you been hit, kicked, punched, or otherwise hurt by someone within the past year? If so, by whom?: No Do you feel safe in your current relationship?: No Current Relationship Is there a partner from a previous relationship who is making you feel unsafe now?: No Are you made to feel afraid or neglected: No [employer] Practices: jehovah's witness Advance Directives: No Advance Directives Information Provided: Yes Do you have thoughts of harming others: None Do you have a plan to hurt others: No Plan Recently lost weight without trying: No Eating poorly because of decreased appetite: No Nutrition Risks: No Nutritional Risk Patient : No : No Poor oral hygiene: No service: No Current occupational status: disabled Sexual orientation: Straight/Heterosexual Meds Allergies Allergy/AdvReac Type Severity Reaction Status Date / Time Sulfa (Sulfonamide Allergy Intermediate PUFFY EYES Verified 01/28/25 13:29 Antibiotics) (SULFA (SULFONAMIDE ANTIBIOTICS)) Penicillins (PENICILLINS) Allergy Mild PT STATES Verified 01/28/25 13:29 NOTHING HAPPENS, ALLG LISTED ON TRANF SHEET acid Allergy Unknown Unknown Uncoded 01/28/25 13:29 Active Medications: Current Medications Acetaminophen (Acetaminophen 325 Mg Tablet) 650 mg PO Q6H PRN PRN Reason: Headache/Pain, Scale 1-10 Al Hydroxide/Mg Hydroxide (Magnesium Hydrox/Alum Hydrox 30 Ml Oral.Susp) 30 ml PO Q6H PRN PRN Reason: Heartburn/Nausea Ascorbic Acid (Ascorbic Acid 500 Mg Tablet) 500 mg PO BID [facility] Last Admin: 02/01/25 08:22 Dose: 500 mg Clozapine (Clozapine 100 Mg Tablet) 100 mg PO DAILY [facility] Last Admin: 02/01/25 08:22 Dose: 100 mg Clozapine (Clozapine 25 Mg Tablet) 25 mg PO DAILY [facility] Last Admin: 02/01/25 08:20 Dose: 25 mg Clozapine (Clozapine 100 Mg Tablet) 300 mg PO BEDTIME [facility] Last Admin: 01/31/25 20:45 Dose: 300 mg Dextrose (Dextrose 50 % 25 Gm/50 Ml Syringe) 25 gm IVPUSH Q15M PRN; Protocol PRN Reason: per Hypoglycemia Standing Ord. Divalproex Sodium (Divalproex Sodium Er 500 Mg Tab.Er.24h) 2,500 mg PO BEDTIME [facility] Last Admin: 01/31/25 20:46 Dose: 2,500 mg Docusate Sodium (Docusate Sodium 100 Mg Capsule) 100 mg PO BID [facility] Last Admin: 02/01/25 08:22 Dose: 100 mg Ferrous Sulfate (Ferrous Sulfate 324 Mg Tablet.Dr) 324 mg PO DAILY [facility] Last Admin: 02/01/25 08:20 Dose: 324 mg Glucose (Glucose Gel 15 Gm Gel..Gram.) 15 gm PO Q15M PRN; Protocol PRN Reason: per Hypoglycemia Standing Ord. Guaifenesin (Guaifenesin 200 Mg/10 Ml 10 Ml Liquid) 10 ml PO Q4H PRN PRN Reason: Cough Insulin Glargine (Insulin Glargine,Hum.Rec.Anlog 100 Unit/Ml 10 Ml Vial) 70 unit SUBCUT BEDTIME [facility] Last Admin: 01/31/25 20:48 Dose: 70 unit Insulin Human Lispro (Insulin Lispro 100 Unit/Ml 3 Ml Vial) 0 unit SUBCUT QIDACHS [facility]; Protocol Last Admin: 02/01/25 08:20 Dose: Not Given Lisinopril (Lisinopril 10 Mg Tablet) 10 mg PO DAILY [facility]; Protocol Last Admin: 02/01/25 08:22 Dose: 10 mg Magnesium Hydroxide (Milk Of Magnesia 30 Ml Oral.Susp) 30 ml PO DAILY PRN PRN Reason: Constipation Metformin HCl (Metformin Hcl Er 500 Mg Tab.Er.24h) 1,000 mg PO BIDWM [facility] Last Admin: 02/01/25 08:22 Dose: 1,000 mg Metoprolol Tartrate (Metoprolol Tartrate 25 Mg Tablet) 25 mg PO BID [facility]; Protocol Last Admin: 02/01/25 08:21 Dose: 25 mg Nicotine Polacrilex (Nicotine Polacrilex 2 Mg Gum) 2 mg BUCCAL Q2H PRN PRN Reason: Nicotine Cravings Omeprazole (Omeprazole 20 Mg Capsule.Dr) 20 mg PO DAILY@0630 [facility] Last Admin: 02/01/25 06:41 Dose: 20 mg Ondansetron HCl (Ondansetron Odt 4 Mg Tab.Rapdis) 4 mg TRANSLINGU DAILY PRN PRN Reason: Nausea and Vomiting Perphenazine (Perphenazine 4 Mg Tablet) 4 mg PO BID [facility] Last Admin: 02/01/25 08:22 Dose: 4 mg Senna (Sennosides 8.6 Mg Tablet) 8.6 mg PO DAILY [facility] Last Admin: 02/01/25 08:21 Dose: 8.6 mg Sertraline HCl (Sertraline Hcl 100 Mg Tablet) 100 mg PO DAILY [facility] Last Admin: 02/01/25 08:20 Dose: 100 mg Trazodone HCl (Trazodone Hcl 50 Mg Tablet) 50 mg PO BEDTIME MRX1 PRN PRN Reason: Insomnia Home Medications ?Medication ?Instructions ?Recorded ?Confirmed ?Last Taken ?Type ferrous sulfate 325 mg (65 mg 325 mg PO DAILY 03/07/22 01/28/25 01/27/25 History iron) tablet metoprolol tartrate 25 mg tablet 1 tab PO BID 1001/28/25 01/27/25 History omeprazole 20 mg capsule,delayed 1 cap PO DAILY@0630 03/07/22 01/28/25 01/27/25 History release docusate sodium 100 mg capsule 100 mg PO BID Constipation 04/21/22 01/28/25 01/27/25 History (Colace) clozapine 100 mg tablet 100 mg PO QAM 12/01/23 01/28/25 01/27/25 History clozapine 100 mg tablet 300 mg PO BEDTIME 12/01/23 01/28/25 01/27/25 History clozapine 25 mg tablet 25 mg PO QAM 12/01/23 01/28/25 01/27/25 History divalproex 500 mg tablet,extended 2,500 mg PO BEDTIME 12/01/23 01/28/25 01/27/25 History release 24 hr lisinopril 10 mg tablet 10 mg PO DAILY 12/01/23 01/28/25 01/27/25 History perphenazine 4 mg tablet 4 mg PO BID 12/01/23 01/28/25 01/27/25 History sertraline 50 mg tablet 50 mg PO DAILY 12/01/23 01/28/25 01/27/25 History sennosides 8.6 mg tablet (senna) 8.6 mg PO DAILY 06/08/24 01/28/25 01/27/25 History dulaglutide 3 mg/0.5 mL 3 mg subcut WE 06/10/24 01/29/25 01/27/25 History subcutaneous pen injector (Trulicity) guaifenesin 10 ml PO Q4H PRN Cough 09/12/24 01/28/25 Unknown History ascorbic acid (vitamin C) 500 mg 500 mg PO BID 01/29/25 01/29/25 Unknown History tablet insulin aspar prt-insulin aspart 0 unit subcut TID 01/29/25 01/29/25 Unknown History 100 unit/mL (70-30) subcutaneous soln (Novolog Mix 70-30 U-100 Insuln) insulin glargine 100 unit/mL 65 unit subcut BEDTIME 01/29/25 01/29/25 Unknown History subcutaneous solution (Lantus U-100 Insulin) metformin 500 mg tablet,extended 1,000 mg PO BIDWM 01/29/25 01/29/25 Unknown History release 24 hr Physical Exam Vital Signs and Narrative: Vital Signs: Last Vital Signs Temp 98.2 F 02/01/25 07:15 Pulse 95 02/01/25 08:21 Resp 16 02/01/25 07:15 BP 102/56 L 02/01/25 08:22 Pulse Ox 97 02/01/25 07:15 O2 Del Method Room Air 02/01/25 07:15 BMI result Body Mass Index 46.0 CONST: Alert and oriented, in NAD. Well nourished HEENT: Normocephalic, atraumatic, MMM, Eyes clear, Neck supple RESP: Lungs clear, RRR even and regular HEART:,RRR, S1, S2. No murmur, no edema GI:Abdomen Soft NT, ND. + BS times four :Deferred SKIN: Warm dry and intact, no visible lesions or rashes NEURO:CN II-XII Intact bilaterally, Sensation intact. Speech clear PSYCH: Flat affect Results Labs 01/28/25 14:09 01/28/25 14:09 Labs: Laboratory Results - last 24 hr 01/31/25 01/31/25 02/01/25 16:41 20:24 07:38 POC Glucose 148 H 257 H 109 02/01/25 11:44 POC Glucose 128 H Assessment and Plan (1) Insulin dependent type 2 diabetes mellitus: Status: Acute Plan 49-year-old female with depressive disorder, bipolar disorder, schizophrenia, type 2 diabetes, hypertension, GUS, and GERD admitted to inpatient psych after presenting to ED with command auditory hallucinations and SI. She is being seen today for medical management of type 2 diabetes and hypertension. Bipolar disorder/depressive disorder/schizophrenia Treatment per psychiatric team Type 2 diabetes insulin dependent Continue with metformin, Lantus and insulin lispro sliding scale Well controlled, blood sugars reviewed, most in 100 range Recent A1c 5.9 Hypertension Continue lisinopril and metoprolol Review of blood pressures indicate air well controlled GERD Continue omeprazole Iron-deficiency anemia Continue daily iron H&H stable 35.8 and 11.6 Thank you for allowing me to participate in the care of this patient. Will follow as needed, please notify medical provider with any changes in condition or concerns.
[2025-02-01 17:04] LABS: Glucose, Whole Blood 151 mg/dL (60-115)
[2025-02-01 20:45] VITALS: BP 126/58; PULSE 109; RESP 16; TEMP 36.4; O2SAT 97
[2025-02-01 20:47] LABS: Glucose, Whole Blood 192 mg/dL (60-115)
[2025-02-01] MEDS: Insulin Glargine,Hum.rec.anlog 100 UNIT/ML 10 ML VIAL 70 UNIT SUBCUT (20:54)
[2025-02-02 08:09] LABS: Glucose, Whole Blood 116 mg/dL (60-115)
[2025-02-02 08:37] VITALS: BP 108/54; PULSE 92; RESP 14; TEMP 36.4; O2SAT 96
[2025-02-02] MEDS: Ferrous Sulfate 324 MG TABLET.DR PO (08:53)
[2025-02-02 12:03] LABS: Glucose, Whole Blood 147 mg/dL (60-115)
--- NOTE | 2025-02-02 12:23 | P.PNPSI_ITS ---
Subjective Subjective Date of Service: 02/02/25 Reason For Visit: psychosis with CAH to suicide Interim History: in milieu doing art. pleasant, smiley, cooperative. reports AH are much improved, now at low volume. does endorse raymundo mood and daytime sedation. agrees to change clozapine from 125/300 --> 75/350. labs reviewed, low VPA level noted. pt agrees to increase VPA from 2500 QHS to 2750 QHS. per staff, 3-day up 18. slept 8 hours. no notable behaviors or events. Mental Status Exam Mental Status Exam Narrative: Pt is alert and oriented; behavior is cooperative and calm; dressed in casual attire; mood is described as raymundo; eye contact appropriate; Speech is normal rate, loudness, and not pressured; thought process is organized; Thought content is on tx; affect full-range normo-intense, non-labile; no SI/SIBI/HI/VH expressed. AH low volume. Diagnostics Vital Signs (24Hr): Vital Signs - 24 hr 02/01/25 20:45 02/02/25 08:37 Temperature 97.6 F 97.6 F Pulse Rate 109 H 92 Respiratory Rate 16 14 Blood Pressure 126/58 L 108/54 L Pulse Oximetry 97 96 Oxygen Delivery Method Room Air BMI result Body Mass Index 46.0 Labs 01/28/25 14:09 01/28/25 14:09 Labs: Laboratory Results - last 48 hr 01/31/25 01/31/25 02/01/25 16:41 20:24 07:38 POC Glucose 148 H 257 H 109 02/01/25 02/01/25 02/01/25 11:44 16:55 20:41 POC Glucose 128 H 151 H 192 H 02/02/25 02/02/25 08:04 11:59 POC Glucose 116 H 147 H Medications Medications Current Medications Acetaminophen (Acetaminophen 325 Mg Tablet) 650 mg PO Q6H PRN PRN Reason: Headache/Pain, Scale 1-10 Al Hydroxide/Mg Hydroxide (Magnesium Hydrox/Alum Hydrox 30 Ml Oral.Susp) 30 ml PO Q6H PRN PRN Reason: Heartburn/Nausea Ascorbic Acid (Ascorbic Acid 500 Mg Tablet) 500 mg PO BID [facility] Last Admin: 02/02/25 08:53 Dose: 500 mg Clozapine (Clozapine 25 Mg Tablet) 75 mg PO DAILY [facility] Clozapine 300 mg/ Clozapine 50 (mg) 350 mg PO BEDTIME [facility] Dextrose (Dextrose 50 % 25 Gm/50 Ml Syringe) 25 gm IVPUSH Q15M PRN; Protocol PRN Reason: per Hypoglycemia Standing Ord. Divalproex Sodium (Divalproex Sodium Er 500 Mg Tab.Er.24h) 2,500 mg PO BEDTIME [facility] Last Admin: 02/01/25 20:58 Dose: 2,500 mg Divalproex Sodium (Divalproex Sodium Er 250 Mg Tab.Er.24h) 250 mg PO BEDTIME [facility] Docusate Sodium (Docusate Sodium 100 Mg Capsule) 100 mg PO BID [facility] Last Admin: 02/02/25 08:53 Dose: 100 mg Ferrous Sulfate (Ferrous Sulfate 324 Mg Tablet.) 324 mg PO DAILY [facility] Last Admin: 02/02/25 08:53 Dose: 324 mg Glucose (Glucose Gel 15 Gm Gel..Gram.) 15 gm PO Q15M PRN; Protocol PRN Reason: per Hypoglycemia Standing Ord. Guaifenesin (Guaifenesin 200 Mg/10 Ml 10 Ml Liquid) 10 ml PO Q4H PRN PRN Reason: Cough Insulin Glargine (Insulin Glargine,Hum.Rec.Anlog 100 Unit/Ml 10 Ml Vial) 70 unit SUBCUT BEDTIME [facility] Last Admin: 02/01/25 20:54 Dose: 70 unit Insulin Human Lispro (Insulin Lispro 100 Unit/Ml 3 Ml Vial) 0 unit SUBCUT QIDACHS [facility]; Protocol Last Admin: 02/02/25 12:02 Dose: Not Given Lisinopril (Lisinopril 10 Mg Tablet) 10 mg PO DAILY [facility]; Protocol Last Admin: 02/02/25 08:53 Dose: 10 mg Magnesium Hydroxide (Milk Of Magnesia 30 Ml Oral.Susp) 30 ml PO DAILY PRN PRN Reason: Constipation Metformin HCl (Metformin Hcl Er 500 Mg Tab.Er.24h) 1,000 mg PO BIDWM [facility] Last Admin: 02/02/25 08:52 Dose: 1,000 mg Metoprolol Tartrate (Metoprolol Tartrate 25 Mg Tablet) 25 mg PO BID [facility]; Protocol Last Admin: 02/02/25 08:52 Dose: 25 mg Nicotine Polacrilex (Nicotine Polacrilex 2 Mg Gum) 2 mg BUCCAL Q2H PRN PRN Reason: Nicotine Cravings Omeprazole (Omeprazole 20 Mg Capsule.Dr) 20 mg PO DAILY@0630 [facility] Last Admin: 02/02/25 06:39 Dose: 20 mg Ondansetron HCl (Ondansetron Odt 4 Mg Tab.Rapdis) 4 mg TRANSLINGU DAILY PRN PRN Reason: Nausea and Vomiting Perphenazine (Perphenazine 4 Mg Tablet) 4 mg PO BID [facility] Last Admin: 02/02/25 08:53 Dose: 4 mg Senna (Sennosides 8.6 Mg Tablet) 8.6 mg PO DAILY [facility] Last Admin: 02/02/25 08:53 Dose: 8.6 mg Sertraline HCl (Sertraline Hcl 100 Mg Tablet) 100 mg PO DAILY [facility] Last Admin: 02/02/25 08:53 Dose: 100 mg Trazodone HCl (Trazodone Hcl 50 Mg Tablet) 50 mg PO BEDTIME MRX1 PRN PRN Reason: Insomnia Allergies Allergies Allergy/AdvReac Type Severity Reaction Status Date / Time Sulfa (Sulfonamide Allergy Intermediate PUFFY EYES Verified 01/28/25 13:29 Antibiotics) (SULFA (SULFONAMIDE ANTIBIOTICS)) Penicillins (PENICILLINS) Allergy Mild PT STATES Verified 01/28/25 13:29 NOTHING HAPPENS, ALLG LISTED ON TRANF SHEET acid Allergy Unknown Unknown Uncoded 01/28/25 13:29 Assessment & Plan Assessment & Plan (1) Insulin dependent type 2 diabetes mellitus: Status: Acute Code(s): E11.9 - Type 2 diabetes mellitus without complications; 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 She is being seen today for medical management of type 2 diabetes and hypertension. Bipolar disorder/depressive disorder/schizophrenia Treatment per psychiatric team Type 2 diabetes insulin dependent Continue with metformin, Lantus and insulin lispro sliding scale Well controlled, blood sugars reviewed, most in 100 range Recent A1c 5.9 Hypertension Continue lisinopril and metoprolol Review of blood pressures indicate air well controlled GERD Continue omeprazole Iron-deficiency anemia Continue daily iron H&H stable 35.8 and 11.6 (2) Schizophrenia: Qualifiers: Schizophrenia type: paranoid schizophrenia Qualified Code(s): F20.0 - Paranoid schizophrenia Status: Acute Code(s): F20.9 - Schizophrenia, unspecified Plan ncrease zoloft from 50 mg daily to 100 mg daily to address depressed mood. continue anti-psychotic regimen of clozapine 125/300 and perphenazine 4 BID. check clozaril level. continue VPA 2500 mg QHS. check VPA level. labs otherwise unremarkable. cause of recent change unclear, possibly related to social factors at half-way. will continue outpt anti-psychotic regimen over the weekend and observe for any change in Sx. 01/30/25: Patient slept for 8 hours, compliant with meds and meal. Denies side effects. Report SI and AH but able to control and be safe. Feeling safe on the unit. Patient is isolative in room, kept to self and rested in bed. Review with patient regarding VPA level which is subtherapeutic which she might miss the dose the night when was in the ED. Clozaril level pending. Patient is calm, pleasant, and cooperative. No manage or behavior issues. VPA level 38/7 on 01/29/25. Possible of missing one dose on the night she was in the ED. Pending Clozaril level 01/31/25: Patient slept for 8 hours, compliant with medications, compliant with diabetic protocol with insulin scheduled. Spent most of the day in bed, to the unit for meals, and was working on the manual for tomorrow in the dining area. She appeared to be disheveled, do not want to shower today but plans to take shower tomorrow. Reports command hallucination is less in volume . Per nursing, observed self dialogue. Denies SI/SIB/HI. No behavior issues. 02/01: in bed, rousable. limited engagement. no questions or complaints. states mood and AH have improved. would like to continue current mgmt. VPA level 38.7, clozapine level pending. continue current mgmt. 02/02: 3-day notice placed yesterday, up . in milieu today doing art, full affect, pleasant. agrees to increase VPA due to raymundo mood and low VPA level. agrees to weight clozapine toward evening more due to daytime somnolence (125/300 --> 75/350). otherwise continue current mgmt. planning for discharge. Reason for continued inpatient stay Substantial Risk for: inability to function and rapid decompensation Time Spent With Patient Time: Total time managing care of this patient today __25__ minutes.
[2025-02-02 16:37] LABS: Glucose, Whole Blood 116 mg/dL (60-115)
[2025-02-02 19:25] VITALS: BP 114/77; PULSE 107; TEMP 36.5; O2SAT 98
[2025-02-02 20:49] LABS: Clozapine (Clozaril) 302 mcg/L
[2025-02-02] MEDS: Divalproex Sodium ER 250 MG TAB.ER.24H PO (20:59)
[2025-02-02 21:01] VITALS: BP 127/63; PULSE 113
[2025-02-02] MEDS: Insulin Glargine,Hum.rec.anlog 100 UNIT/ML 10 ML VIAL 70 UNIT SUBCUT (21:02)
[2025-02-02 21:05] LABS: Glucose, Whole Blood 127 mg/dL (60-115)
[2025-02-03 07:31] LABS: Glucose, Whole Blood 112 mg/dL (60-115)
[2025-02-03 07:33] VITALS: BP 112/75; PULSE 100; RESP 20; TEMP 36.4; O2SAT 99
[2025-02-03] MEDS: Ferrous Sulfate 324 MG TABLET.DR PO (08:02)
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
[2025-02-03 12:10] LABS: Glucose, Whole Blood 137 mg/dL (60-115)
[2025-02-03 16:49] LABS: Glucose, Whole Blood 133 mg/dL (60-115)
[2025-02-03 19:40] VITALS: BP 120/63; PULSE 107; RESP 18; TEMP 36.3; O2SAT 99
[2025-02-03 20:55] LABS: Glucose, Whole Blood 146 mg/dL (60-115)
[2025-02-03] MEDS: Insulin Glargine,Hum.rec.anlog 100 UNIT/ML 10 ML VIAL 70 UNIT SUBCUT (21:31)
[2025-02-03 21:35] VITALS: BP 119/80; PULSE 109
[2025-02-03] MEDS: Divalproex Sodium ER 250 MG TAB.ER.24H PO (21:37)
[2025-02-04 07:00] VITALS: BMI 44.1
[2025-02-04 07:41] VITALS: BP 120/77; PULSE 96; RESP 16; TEMP 36.7; O2SAT 99
[2025-02-04 07:52] LABS: Glucose, Whole Blood 159 mg/dL (60-115)
[2025-02-04] MEDS: Ferrous Sulfate 324 MG TABLET.DR PO (08:15)
[2025-02-04 08:21] LABS: Creatinine Clr Calc Pharmacy 112.5; Estimated Glomerular Filt Rate > 60
== END 2025-02-04 11:06 | disposition home or self-care (01) | DRG 750 ==
LOC: HO.ED 01-29 11:09 → HO.PADLT16 01-29 11:16
PROVIDERS: Physician Assistant Medical; Admitting Provider Psychiatry & Neurology Psychiatry; Emergency Provider Emergency Medicine; PCP Internal Medicine; Visit Provider Psychiatry & Neurology Psychiatry
DX: F20.0 Paranoid schizophrenia (principal); R45.851 Suicidal ideations; E11.9 Type 2 diabetes mellitus without complications; F17.210 Nicotine dependence, cigarettes, uncomplicated; D50.9 Iron deficiency anemia, unspecified; F32.A Depression, unspecified; I10 Essential (primary) hypertension; Z71.6 Tobacco abuse counseling; K21.9 Gastro-esophageal reflux disease without esophagitis; Z79.4 Long term (current) use of insulin; Z79.84 Long term (current) use of oral hypoglycemic drugs; Z79.85 Long-term (current) use of injectable non-insulin antidiabetic drugs; Z79.899 Other long term (current) drug therapy
CPT/HCPCS: 36415; 80053; 80061; 80143; 80159; 80164; 80179; 80307; 81003; 82565; 82607; 82746; 82947; 83036; 83690; 83735; 84439; 84443; 85025; 90656; 93005; 99285; S9485

== ENCOUNTER → 2025-01-28 16:42 | Outpatient (BNV) | payer MEDICAID, SELFPAY | PROVIDERS: Admitting Provider Psychiatry & Neurology Psychiatry; Emergency Provider Emergency Medicine; PCP Internal Medicine; Visit Provider Internal Medicine Cardiovascular Disease | DX: Z13.6 Encounter for screening for cardiovascular disorders (principal) | CPT/HCPCS: 93010 ==

== ENCOUNTER → 2025-01-29 10:55 | Outpatient (BNV) | payer MEDICAID, SELFPAY | PROVIDERS: Admitting Provider Psychiatry & Neurology Psychiatry; Emergency Provider Emergency Medicine; PCP Internal Medicine; Visit Provider Nurse Practitioner Family | DX: E11.9 Type 2 diabetes mellitus without complications (principal); Z79.4 Long term (current) use of insulin | CPT/HCPCS: 99221 ==

== ENCOUNTER → 2025-01-29 10:55 | Outpatient (BNV) | payer OTHER, SELFPAY | PROVIDERS: Admitting Provider Psychiatry & Neurology Psychiatry; Emergency Provider Emergency Medicine; PCP Internal Medicine; Visit Provider Psychiatry & Neurology Psychiatry | DX: F20.0 Paranoid schizophrenia (principal); F32.A Depression, unspecified | CPT/HCPCS: 99231; 99232; 99233 ==

== ENCOUNTER 2025-04-21 10:04 | Outpatient (REF) | payer MEDICAID, SELFPAY ==
--- NOTE | 2025-04-21 | PFT_ITS ---
Indication: Dyspnea Spirometry FEV1 to FVC 75%; FEV1 1.4 L; FVC 1.87 L. No significant response to bronchodilators noted. Lung Volumes Total lung capacity 84% predicted; residual volume 173% predicted; expiratory reserve volume 16% predicted Diffusion Capacity DLCO 79% predicted Comparisons None Interpretation No obstructive nor restrictive ventilatory defects identified. No significant response to bronchodilators noted. There is a moderate decrease in the maximum voluntary ventilation secondary to likely deconditioning. Lung volumes with significant air trapping and a significant decrease in the expiratory reserve volume likely from an elevated BMI. Diffusing capacity is mildly decreased. It does correct to normal when corrected for the alveolar volume. Clinical correlation warranted. MTDD
[2025-04-21 10:50] VITALS: PULSE 110
== END 2025-04-21 10:05 | disposition home or self-care (01) ==
LOC: HO.RESP 10:04
PROVIDERS: PCP Internal Medicine; Visit Provider Internal Medicine
DX: R06.02 Shortness of breath (principal); R06.00 Dyspnea, unspecified
CPT/HCPCS: 94060; 94640; 94727; 94729

== ENCOUNTER → 2025-04-21 10:08 | Outpatient (BNV) | payer MEDICAID, SELFPAY | PROVIDERS: PCP Internal Medicine; Visit Provider Hospitalist | DX: R06.00 Dyspnea, unspecified (principal) | CPT/HCPCS: 94060; 94727; 94729 ==

== ENCOUNTER 2025-05-03 12:23 | Emergency (ER) | payer MEDICAID, SELFPAY ==
--- NOTE | 2025-05-03 | ECG_ITS ---
Test Reason : NEAR SYNCOPE Blood Pressure : */* mmHG Vent. Rate : 97 BPM Atrial Rate : 97 BPM P-R Int : 124 ms QRS Dur : 88 ms QT Int : 372 ms P-R-T Axes : 48 47 43 degrees QTcB Int : 472 ms Normal sinus rhythm Cannot rule out Anterior infarct , age undetermined Abnormal ECG When compared with ECG of 28-Jan-2025 18:01, No significant change was found Referred By: Generic ED Physician Electronically Signed By: Tommy Gill
[2025-05-03 12:31] VITALS: BP 104/56; BP 94/62; PULSE 110; PULSE 99; RESP 18; TEMP 36.6; O2SAT 98; O2SAT 99; BMI 47.0
[2025-05-03 13:03] LABS: MANUAL DIFF FLAG NO
[2025-05-03 13:04] LABS: Hematocrit 34.4 % (37.0-47.0); Hemoglobin 11.0 g/dl (12.0-16.0); Imm Gran Abs Auto 0.09 X10*3/uL (0.00-0.03); Imm Gran Pct Auto 1.3 % (0.0-0.4); Lymphocytes Absolute Auto 1.8 X10*3/uL (1.2-4.9); Mean Corpuscular HGB Conc 32.0 g/dl (31.0-35.0); Mean Corpuscular Hemoglobin 27.6 pg (27.0-33.0); Mean Corpuscular Volume 86.4 fL (80.0-98.0); NRBC Abs Auto 0.000 X10*3/uL (0.0-0.012); NRBC Pct Auto 0.0 /100WBC (0.0-0.2); Platelet Count 192 X10*3/uL (160-400); Red Blood Count 3.98 X10*6/uL (4.20-5.50); White Blood Count 6.9 X10*3/uL (4.8-10.8)
[2025-05-03 13:16] LABS: INTERNATIONAL NORM RATIO 1.1 (0.9-1.1); Prothrombin Time 13.0 SEC (11.2-13.5)
[2025-05-03 13:18] LABS: Alanine Aminotransferase 40 U/L (0-31); Albumin Level 3.4 g/dL (3.5-5.0); Alkaline Phosphatase 50 U/L (39-117); Anion Gap 12 (12-20); Aspartate Amino Transferase 59 U/L (5-31); Blood Urea Nitrogen 9 mg/dL (9-16); Calcium 8.5 mg/dL (8.4-10.2); Carbon Dioxide 24 mmol/L (22-29); Chloride 107 mmol/L (96-108); Creatinine Clr Calc Pharmacy 103.0; Estimated Glomerular Filt Rate > 60; Magnesium 1.6 mg/dL (1.6-2.6); Potassium 4.1 mmol/L (3.3-5.1); Sodium 139 mmol/L (135-145); Total Protein 5.6 g/dL (6.5-8.0)
[2025-05-03 13:27] LABS: Troponin-I High Sensitivity < 2.7 ng/L (<3.5-17.0)
--- NOTE | 2025-05-03 14:13 | ED_ITS ---
HPI - General Adult General Chief complaint: Dizziness Stated complaint: DIZZY,NAUSEA PER EMS Time Seen by Provider: 05/03/25 13:09 History of Present Illness ED Provider: Dr. Morton HPI narrative: 49-year-old female history of diabetes, hypertension presented hospital today for nausea and vomiting. Patient has had an episode of dizziness. She felt like she was about to had a syncopal episode. Complain of recent upper respiratory infection illness. No sick contact. Patient stated that she was walking at her day program where she had a sudden onset of near syncopal episode. Related Data Home Medications ?Medication ?Instructions ?Recorded ?Confirmed ferrous sulfate 325 mg (65 mg 325 mg PO DAILY 03/07/22 01/28/25 iron) tablet metoprolol tartrate 25 mg tablet 1 tab PO BID 03/07/22 01/28/25 omeprazole 20 mg capsule,delayed 1 cap PO DAILY@0630 1 01/28/25 release docusate sodium 100 mg capsule 100 mg PO BID Constipat ion 04/21/22 01/28/25 (Colace) divalproex 500 mg tablet,extended 2,500 mg PO BEDTIME 12/01/23 01/28/25 release 24 hr lisinopril 10 mg tablet 10 mg PO DAILY 12/01/2301/18 perphenazine 4 mg tablet 4 mg PO BID 12/01/23 5 sennosides 8.6 mg tablet (senna) 8.6 mg PO DAILY 06/0801/28/25 dulaglutide 3 mg/0.5 mL 3 mg subcut WE 06/10/2401/18 subcutaneous pen injector (Trulicity) guaifenesin 10 ml PO Q4H PRN Cough 09/1201/28/25 ascorbic acid (vitamin C) 500 mg 500 mg PO BID 5 01/29/25 tablet insulin aspar prt-insulin aspart 0 unit subcut TID 05/1301/29/25 100 unit/mL (70-30) subcutaneous soln (Novolog Mix 70-30 U-100 Insuln) insulin glargine 100 unit/mL 65 unit subcut BEDTIME 01/29/25 subcutaneous solution (Lantus U-100 Insulin) metformin 500 mg tablet,extended 1,000 mg PO BIDWM 05/1301/29/25 release 24 hr Previous Rx's ?Medication ?Instructions ?Recorded ondansetron 4 mg disintegrating 4 mg PO DAILY PRN naus ea and 10/19/24 tablet vomiting 5 days #10 tabs clozapine 25 mg tablet 75 mg (3 x 25 mg) PO DAILY 3 0 days 02/03/25 #90 tabs clozapine 50 mg tablet 350 mg (7 x 50 mg) PO BEDTIM E 30 02/03/25 days #210 tabs divalproex 250 mg tablet,extended 250 mg PO BEDTIME 30 days #30 tabs 02/03/25 release 24 hr sertraline 100 mg tablet 100 mg PO DAILY 30 days #30 tabs 02/03/25 ondansetron 4 mg disintegrating 4 mg PO Q8H PRN nausea and 05/03/25 tablet vomiting #14 tabs Allergies Allergy/AdvReac Type Severity Reaction Status Date / Time Sulfa (Sulfonamide Allergy Intermediate PUFFY EYES Verified 05/03/25 12:39 Antibiotics) (SULFA (SULFONAMIDE ANTIBIOTICS)) Penicillins (PENICILLINS) Allergy Mild PT STATES Verified 05/03/25 12:39 NOTHING HAPPENS, ALLG LISTED ON TRANF SHEET acid Allergy Unknown Unknown Uncoded 05/03/25 12:39 Review of Systems 2 Review of Systems: Pertinent review of systems as mentioned in HPI. All other system otherwise negative. [facility] Past Medical History [facility] Narrative: Medical history as mentioned in HPI Medical History Acute psychosis Gram-positive bacteremia HTN (hypertension) Diabetes Social History Social History Household Members: Other Household Members Other:: intermediate Housing: Other Housing Other:: Longterm Do you presently have visiting nurse or other home services: No Alcohol intake: never Patient Tobacco Use Status: Current everyday Tobacco user Tobacco use type: Cigarette Cigarette Packs Per Day: 0.5 Cigarettes Per Day: 10.0 Years Smoked: 36 e-Cigarette/Vaping Use: Currently Using Second Hand Smoke Exposure: Yes Advance Directives: No Advance Directives Information Provided: No service: No Current occupational status: disabled Sexual orientation: Straight/Heterosexual Physical Exam ED Exam Exam: General: Pleasant, no distress, interacting appropriately Head: Normacephalic, atraumatic ENT: oral mucosa moist, neck supple, no tracheal deviation Cardiovascular: regular rate, regular rhythm, no murmurs, rubbing, gallops Respiratory: CTAB, no wheeze, rales, rhonchi Gastrointestinal: Soft, non distended, non tender, non guarding Extremities: Trace edema in the lower extremities Neurological: Awake and alert, no facial droop noted Skin: Warm and dry Psychiatric: Appropriate mood and thoughts Vital Signs: Vital Signs - 24 hr 05/03/25 12:31 Temperature 97.9 F Pulse Rate 99 Respiratory Rate 18 Blood Pressure 104/56 L Pulse Oximetry 99 Oxygen Delivery Method Room Air BMI result Body Mass Index 47.0 Medications Administered Discontinued Medications Generic Name Dose Route Start Last Admin Trade Name Freq PRN Reason Stop Dose Admin Sodium Chloride 1,000 mls @ 999 mls/hr 05/03/25 14:30 05/03/25 14:33 Ns IV 05/03/25 15:30 999 mls/hr .Q1H1M CARLEEN Administration Ondansetron HCl 4 mg 05/03/25 14:23 05/03/25 14:33 Ondansetron Hcl 4 Mg/2 Ml Vial IVPUSH 05/03/25 14:24 4 mg ONCE ONE Administration Medical Decision Making Medical Decision Making [facility] Narrative: This is a 49-year-old female history of hypertension diabetes presented hospital today for a near syncopal episode. We will plan to give patient additional IV fluid here. EKG basic lab work will be obtained. Assess for any other cause of her near syncopal episode. We will also check her UA for any signs of UTI. Patient appears to be stable on my examination we will continue to observe the patient at this time. No sign of UTI on UA. Mild transaminitis likely secondary to fatty liver disease, patient is able to ambulate after bolus IV fluid she states she is feeling much better at this time. We will plan to discharge patient with a some p.o. Zofran to take for her nausea. No sign of cardiac arrhythmia on EKG. No sign of STEMI. We will plan to discharge patient at this time. No further near syncopal episode. Differential Diagnosis Differential Diagnoses: The differential diagnosis associated with the presentation includes Near syncope, syncope, dehydration, nausea vomiting Lab Data [facility] Lab Attestation statement: I reviewed the patient's lab results. 05/03/25 13:00 05/03/25 13:00 Labs: Lab Results 05/03/25 05/03/25 Range/Units 13:00 15:50 WBC 6.9 (4.8-10.8) X10*3/uL RBC 3.98 L (4.20-5.50) X10*6/uL Hgb 11.0 L (12.0-16.0) g/dl Hct 34.4 L (37.0-47.0) % MCV 86.4 (80.0-98.0) fL MCH 27.6 (27.0-33.0) pg MCHC 32.0 (31.0-35.0) g/dl RDW 14.3 (11.0-16.0) % Plt Count 192 (160-400) X10*3/uL MPV 9.4 (9.4-12.3) fL Immature Gran % (Auto) 1.3 H (0.0-0.4) % Neut % (Auto) 59.5 (45-73) % Lymph % (Auto) 25.5 (20-40) % [place] % (Auto) 13.0 H (2-11) % Eos % (Auto) 0.4 (0-4) % Baso % (Auto) 0.3 (0-2) % Lymph # (Auto) 1.8 (1.2-4.9) X10*3/uL [place] # (Auto) 0.9 (0.1-1.2) X10*3/uL Eos # (Auto) 0.0 (0.0-0.4) X10*3/uL Baso # (Auto) 0.0 (0.0-0.2) X10*3/uL Abs Immat Gran (auto) 0.09 H (0.00-0.03) X10*3/uL Absolute Neuts (auto) 4.1 (2.0-8.3) x10*3/uL Absolute Nucleated RBC 0.000 (0.0-0.012) X10*3/uL Nucleated RBC % (auto) 0.0 (0.0-0.2) /100WBC PT 13.0 (11.2-13.5) SEC INR 1.1 (0.9-1.1) Sodium 139 (135-145) mmol/L Potassium 4.1 (3.3-5.1) mmol/L Chloride 107 (96-108) mmol/L Carbon Dioxide 24 (22-29) mmol/L Anion Gap 12 (12-20) BUN 9 (9-16) mg/dL Creatinine 0.85 (0.5-1.4) mg/dL Estim Creat Clear Calc 103.0 Estimated GFR > 60 Random Glucose 147 H (60-115) mg/dL Calcium 8.5 (8.4-10.2) mg/dL Magnesium 1.6 (1.6-2.6) mg/dL Total Bilirubin 0.2 (0.0-1.0) mg/dL AST 59 H (5-31) U/L ALT 40 H (0-31) U/L Alkaline Phosphatase 50 (39-117) U/L Troponin I High Sens < 2.7 (<3.5-17.0) ng/L Total Protein 5.6 L (6.5-8.0) g/dL Albumin 3.4 L (3.5-5.0) g/dL Urine Color Yellow Urine Appearance Clear Urine pH 6.5 (5.0-9.0) Ur Specific [place] <= 1.005 (1.005-1.025) Urine Protein Negative (Neg-Trace) mg/dL Urine Glucose (UA) Negative (Negative) mg/dL Urine Ketones Negative (Negative) mg/dL Urine Blood Negative (Negative) Urine Nitrite Negative (Negative) Ur Leukocyte Esterase Negative (Negative) Independent Interpretation I performed an independent interpretation of an: EKG Discharge Plan Discharge Clinical Impression: Dizziness, Nausea & vomiting Patient Disposition: Home, Self-Care Instructions: Dizziness (ED) Prescriptions: New ondansetron 4 mg tablet,disintegrating 4 mg PO Q8H PRN (Reason: nausea and vomiting) Qty: 14 0RF No Action docusate sodium [Colace] 100 mg Capsule 100 mg PO BID ferrous sulfate 325 mg (65 mg iron) Tablet 325 mg PO DAILY omeprazole 20 mg capsule,delayed release(DR/EC) 1 cap PO DAILY@0630 metoprolol tartrate 25 mg tablet 1 tab PO BID lisinopril 10 mg tablet 10 mg PO DAILY divalproex 500 mg tablet extended release 24 hr 2,500 mg PO BEDTIME perphenazine 4 mg tablet 4 mg PO BID sennosides [senna] 8.6 mg Tablet 8.6 mg PO DAILY Trulicity 3 mg/0.5 mL pen injector 3 mg SUBCUT WE guaifenesin 10 ml PO Q4H PRN (Reason: Cough) ondansetron 4 mg tablet,disintegrating 4 mg PO DAILY PRN (Reason: nausea and vomiting) 5 Days Qty: 10 0RF insulin glargine [Lantus U-100 Insulin] 100 unit/mL Solution 65 unit SUBCUT BEDTIME metformin 500 mg Tablet Extended Release 24 Hr 1,000 mg PO BIDWM insulin asp prt-insulin aspart [Novolog Mix 70-30 U-100 Insuln] 100 unit/mL (70-30) Solution 0 unit SUBCUT TID Rx Instructions: sliding scale ascorbic acid (vitamin C) 500 mg Tablet 500 mg PO BID sertraline 100 mg Tablet 100 mg PO DAILY 30 Days Qty: 30 0RF clozapine 25 mg Tablet 75 mg PO DAILY 30 Days Qty: 90 0RF divalproex 250 mg Tablet Extended Release 24 Hr 250 mg PO BEDTIME 30 Days Qty: 30 0RF clozapine 50 mg Tablet 350 mg PO BEDTIME 30 Days Qty: 210 0RF Print Language: Turkish
[2025-05-03 16:09] LABS: Appearance Urine Clear; Glucose Urine UA Negative (Negative); PH 6.5 (5.0-9.0); Specific Gravity - Urine <= 1.005 (1.005-1.025)
[2025-05-03 17:02] VITALS: BP 104/56; PULSE 99; RESP 18; TEMP 36.6; O2SAT 99
[2025-05-07 11:33] LABS: Glucose, Whole Blood 173 mg/dL (60-115)
== END 2025-05-03 17:02 | disposition home or self-care (01) ==
PROVIDERS: Student in an Organized Health Care Education/Training Program; Emergency Provider Emergency Medicine; PCP Internal Medicine
DX: R42 Dizziness and giddiness (principal); R11.2 Nausea with vomiting, unspecified; E11.9 Type 2 diabetes mellitus without complications; I10 Essential (primary) hypertension; F17.210 Nicotine dependence, cigarettes, uncomplicated; Z79.4 Long term (current) use of insulin; Z79.84 Long term (current) use of oral hypoglycemic drugs; Z79.85 Long-term (current) use of injectable non-insulin antidiabetic drugs; Z79.899 Other long term (current) drug therapy
CPT/HCPCS: 36415; 80053; 81003; 83735; 84484; 85025; 85610; 93005; 96361; 96374; 99284; J2405

== ENCOUNTER → 2025-05-03 12:41 | Outpatient (BNV) | payer MEDICAID, SELFPAY | PROVIDERS: Emergency Provider Student in an Organized Health Care Education/Training Program; PCP Internal Medicine; Visit Provider Internal Medicine Cardiovascular Disease | DX: R94.31 Abnormal electrocardiogram [ECG] [EKG] (principal); R55 Syncope and collapse | CPT/HCPCS: 93010 ==

== ENCOUNTER 2025-05-05 08:12 | Inpatient (IN) | payer MEDICAID, SELFPAY ==
[2025-05-05] VITALS (23 sets, daily range): BP systolic 88–141; BP diastolic 38–86; PULSE 72–123; RESP 16–28; TEMP 36.6–37.1; O2SAT 94–99; BMI 45.7
--- NOTE | ~2025-05-05 | XR_ITS ---
EXAMINATION: XR CHEST CLINICAL INFORMATION: sob COMPARISON: X-ray 12/02/2023 TECHNIQUE: Frontal view of the chest was obtained. FINDINGS: Heart is normal in size. Overlying monitoring leads. Mild central vascular prominence, right greater than left. No focal consolidation. No effusion. No pneumothorax. No acute osseous findings XR/XR chest 1V IMPRESSION: Mild central vascular prominence. No overt pulmonary edema. Electronically signed by: Jerardo Serna MD 05/05/2025 09:12 AM EST
--- NOTE | 2025-05-05 08:48 | ED.URI ---
HPI - URI/Sore Throat General Chief Complaint: Upper Respiratory Symptoms Stated Complaint: +COVID,FLU SX Time Seen by Provider: 05/05/25 08:14 Source: patient and EMS Mode of arrival: EMS Limitations: no limitations History of Present Illness ED Provider: Marilu Esquivel PA-C HPI Narrative: 49 yo female with history of schizophrenia, depression, DM2, HTN who presents to the ER from her snf for evaluation of cough, N/V/D, body aches and not feeling well for the last 1 week. She tested positive for COVID yesterday at her snf. She denies any known sick contacts there. She reports for the last week she has had minimal p.o. intake with recurrent episodes of nausea, vomiting and nonbloody diarrhea. She has had a congested cough associated with burning sensation in her chest. She reports subjective fever and chills. She denies any difficulty breathing, abdominal pain. She states she took all of her medications this morning including her blood pressure medications. MD elicited complaint: cough and other (Nausea, vomiting, diarrhea, decreased p.o. intake) Onset (ago): week(s) (1) Consistency: progressively worsening Severity: moderate Able to tolerate fluids by mouth: No Exacerbating factors: nothing Relieving factors: nothing Associated symptoms: fever, chills, myalgias, headache, sore throat, chest pain, nausea, vomiting and diarrhea Treatments prior to arrival: none Related Data Home Medications ?Medication ?Instructions ?Recorded ?Confirmed ferrous sulfate 325 mg (65 mg 325 mg PO DAILY 03/07/22 01/28/25 iron) tablet metoprolol tartrate 25 mg tablet 1 tab PO BID 03/07/22 01/28/25 omeprazole 20 mg capsule,delayed 1 cap PO DAILY@0630 03/07/22 01/28/25 release docusate sodium 100 mg capsule 100 mg PO BID Constipation 04/21/22 01/28/25 (Colace) divalproex 500 mg tablet,extended 2,500 mg PO BEDTIME 12/01/23 01/28/25 release 24 hr lisinopril 10 mg tablet 10 mg PO DAILY 12/01/23 01/28/25 perphenazine 4 mg tablet 4 mg PO BID 12/01/23 01/28/25 sennosides 8.6 mg tablet (senna) 8.6 mg PO DAILY 06/08/24 01/28/25 dulaglutide 3 mg/0.5 mL 3 mg subcut WE 06/10/24 01/29/25 subcutaneous pen injector (Trulicity) guaifenesin 10 ml PO Q4H PRN Cough 09/12/24 01/28/25 ascorbic acid (vitamin C) 500 mg 500 mg PO BID 01/29/25 01/29/25 tablet insulin aspar prt-insulin aspart 0 unit subcut TID 01/29/25 01/29/25 100 unit/mL (70-30) subcutaneous soln (Novolog Mix 70-30 U-100 Insuln) insulin glargine 100 unit/mL 65 unit subcut BEDTIME 01/29/25 01/29/25 subcutaneous solution (Lantus U-100 Insulin) metformin 500 mg tablet,extended 1,000 mg PO BIDWM 01/29/25 01/29/25 release 24 hr Previous Rx's ?Medication ?Instructions ?Recorded ondansetron 4 mg disintegrating 4 mg PO DAILY PRN nausea and 10/19/24 tablet vomiting 5 days #10 tabs clozapine 25 mg tablet 75 mg (3 x 25 mg) PO DAILY 30 days 02/03/25 #90 tabs clozapine 50 mg tablet 350 mg (7 x 50 mg) PO BEDTIME 30 02/03/25 days #210 tabs divalproex 250 mg tablet,extended 250 mg PO BEDTIME 30 days #30 tabs 02/03/25 release 24 hr sertraline 100 mg tablet 100 mg PO DAILY 30 days #30 tabs 02/03/25 ondansetron 4 mg disintegrating 4 mg PO Q8H PRN nausea and 05/03/25 tablet vomiting #14 tabs Allergies Allergy/AdvReac Type Severity Reaction Status Date / Time Sulfa (Sulfonamide Allergy Intermediate PUFFY EYES Verified 05/05/25 08:26 Antibiotics) (SULFA (SULFONAMIDE ANTIBIOTICS)) Penicillins (PENICILLINS) Allergy Mild PT STATES Verified 05/05/25 08:26 NOTHING HAPPENS, ALLG LISTED ON TRANF SHEET acid Allergy Unknown Unknown Uncoded 05/05/25 08:26 Review of Systems Review of Systems: Yes all other systems are reviewed and are negative PMFSH Past Medical History Medical History Acute psychosis Gram-positive bacteremia HTN (hypertension) Diabetes Social History Social History Household Members: Other Household Members Other:: snf Housing: Other Housing Other:: Care Home Do you presently have visiting nurse or other home services: No Alcohol intake: never Patient Tobacco Use Status: Current everyday Tobacco user Tobacco use type: Cigarette Cigarette Packs Per Day: 0.5 Cigarettes Per Day: 10.0 Years Smoked: 36 e-Cigarette/Vaping Use: Currently Using Second Hand Smoke Exposure: Yes Advance Directives: No Advance Directives Information Provided: Yes Do you have a plan to hurt others: No Plan service: No Current occupational status: disabled Sexual orientation: Straight/Heterosexual Physical Exam Exam: Exam: Appearance: Alert. Oriented X3. No acute distress. Head: normocephalic, atraumatic. Eyes: Pupils equal, round and reactive to light. ENT: Pharynx normal. No tonsillar swelling or exudate. Neck: Normal inspection. Neck supple. CVS: tachycardic, regular rhythm, HR 120s. Pulses normal. Respiratory: No respiratory distress. Breath sounds coarse Abdomen: Obese, Soft and nontender. +BS x4 Skin: Skin warm and dry. Normal skin color. Normal skin turgor. No rashes. Extremities: No lower extremity edema. No joint swelling. Neuro/psych: Oriented X 3. No motor deficit. No sensory deficit. CN II-XII intact. Normal speech and cognition. Vital Signs: Vital Signs: Last Vital Signs Temp 98.1 F 05/05/25 15:43 Pulse 99 05/05/25 15:43 Resp 19 05/05/25 15:43 BP 118/86 05/05/25 15:43 Pulse Ox 96 05/05/25 15:43 O2 Del Method Room Air 05/05/25 15:43 BMI result Body Mass Index 45.7 Medications Administered Discontinued Medications Generic Name Dose Route Start Last Admin Trade Name Freq PRN Reason Stop Dose Admin Acetaminophen 975 mg 05/05/25 08:35 05/05/25 08:50 Acetaminophen 325 Mg Tablet PO 05/05/25 08:36 975 mg ONCE ONE Administration Lactated Ringer's 1,000 mls @ 999 mls/hr 05/05/25 08:45 05/05/25 10:03 Lr IV 05/05/25 09:45 Infused .Q1H1M CARLEEN Infusion Lactated Ringer's 1,000 mls @ 999 mls/hr 05/05/25 13:00 05/05/25 14:32 Lr IV 05/05/25 14:00 Infused .Q1H1M CARLEEN Infusion Lactated Ringer's 1,000 mls @ 999 mls/hr 05/05/25 13:30 05/05/25 14:08 Lr IV 05/05/25 14:30 999 mls/hr .Q1H1M CARLEEN Administration Midodrine 10 mg 05/05/25 14:19 05/05/25 14:27 Midodrine Hcl 10 Mg Tablet PO 05/05/25 14:20 10 mg ONCE ONE Administration Ondansetron HCl 4 mg 05/05/25 09:21 05/05/25 09:42 Ondansetron Hcl 4 Mg/2 Ml Vial IVPUSH 05/05/25 09:22 4 mg ONCE ONE Administration Medical Decision Making Medical Decision Making MDM Narrative: 49 yo female with schizoaffective disorder on Cloazaril, hx HTN presenting with N/V, body aches and cough, COVID + at her snf yesterday Coming in tachycardic and slightly tachypneic, no distress and lungs are clear. not hypoxic. BP soft, she did take both of her antihypertensive meds today. she has been nauseted and vomiting, concern for dehydration. workup pending. IVF ordered. 13:26 - patient hypotensive 97/38 with ongoing tachycardia. 2nd liter IVF infusing. sleeping 14:00 - patient hypotensive with blood pressures in the 80s/30s MAPs in the 50s. patient sleeping, when awoken she reports she is feeling somewhat better after 2L IVF. she has a congested cough. no longer nauseated. Manual blood pressure 110/60 at 14:08 14:25 - BP low again 88/39. she reports her BP has been running in the 80-90s at home when she checks it and she has been continuing to take her BP meds (lisinopril and metoprolol). suspect hypotension is a combination of dehydration and medication effects. low suspicion for septic shock 2/2 bacterial infection will give dose of midodrine 10mg for BP support, lactic acid and cultures pending. 3rd liter IVF ordered, running slow. new expiratory wheezes on exam. 15:00 - BP improved w/ MAP 66. remains tachycardic low 100s. will plan for admission for further management. Differential Diagnosis Differential Diagnoses: The differential diagnosis associated with the presentation includes covid, viral sepsis, superimposed bacterial PNA, dehydration, medication adverse reaction Admission/Observation Consideration of admission/observation: Escalation of care including admission/observation considered Consult Healthcare Provider Management of the patient was discussed with: Hospitalist Lab Data MDM Lab Attestation statement: I reviewed the patient's lab results. Mild leukocytosis, normal lactic acid 05/05/25 08:49 05/05/25 08:49 Labs: Lab Results 05/05/25 05/05/25 05/05/25 Range/Units 08:49 09:11 14:08 WBC 11.8 H (4.8-10.8) X10*3/uL RBC 4.52 (4.20-5.50) X10*6/uL Hgb 12.3 (12.0-16.0) g/dl Hct 39.1 (37.0-47.0) % MCV 86.5 (80.0-98.0) fL MCH 27.2 (27.0-33.0) pg MCHC 31.5 (31.0-35.0) g/dl RDW 14.6 (11.0-16.0) % Plt Count 199 (160-400) X10*3/uL MPV 9.8 (9.4-12.3) fL Immature Gran % (Auto) 0.4 (0.0-0.4) % Neut % (Auto) 69.0 (45-73) % Lymph % (Auto) 22.8 (20-40) % [place] % (Auto) 7.3 (2-11) % Eos % (Auto) 0.3 (0-4) % Baso % (Auto) 0.2 (0-2) % Lymph # (Auto) 2.7 (1.2-4.9) X10*3/uL [place] # (Auto) 0.9 (0.1-1.2) X10*3/uL Eos # (Auto) 0.0 (0.0-0.4) X10*3/uL Baso # (Auto) 0.0 (0.0-0.2) X10*3/uL Abs Immat Gran (auto) 0.05 H (0.00-0.03) X10*3/uL Absolute Neuts (auto) 8.2 (2.0-8.3) x10*3/uL Absolute Nucleated RBC 0.000 (0.0-0.012) X10*3/uL Nucleated RBC % (auto) 0.0 (0.0-0.2) /100WBC Sodium 142 (135-145) mmol/L Potassium 3.4 (3.3-5.1) mmol/L Chloride 107 (96-108) mmol/L Carbon Dioxide 26 (22-29) mmol/L Anion Gap 12 (12-20) BUN 7 L (9-16) mg/dL Creatinine 0.69 (0.5-1.4) mg/dL Estim Creat Clear Calc 124.8 Estimated GFR > 60 Random Glucose 113 (60-115) mg/dL Lactic Acid 1.4 (0.5-2.0) mmol/L Calcium 8.9 (8.4-10.2) mg/dL Magnesium 1.8 (1.6-2.6) mg/dL Total Bilirubin 0.2 (0.0-1.0) mg/dL Direct Bilirubin < 0.2 (0.0-0.5) mg/dL AST 24 (5-31) U/L ALT 23 (0-31) U/L Alkaline Phosphatase 52 (39-117) U/L NT-Pro-B Natriuret Pep 251.4 (<300) pg/mL Total Protein 6.2 L (6.5-8.0) g/dL Albumin 3.5 (3.5-5.0) g/dL Influenza Type A (PCR) NEGATIVE (Negative) Influenza Type B (PCR) NEGATIVE (Negative) RSV RNA Qual (PCR) NEGATIVE (Negative) SARS-CoV-2 RNA (RT-PCR) POSITIVE A (Negative) Independent Interpretation I performed an independent interpretation of an: EKG and Plain X-Ray Interpretation: CXR with some vascular congestion, no focal consolidation or effusion EKG w/ sinus rhythm, HR 99, low voltage QRS, no change from prior Radiology Impression Discussion of test interpretation with radiology: I have reviewed the radiologist's reading. Radiologist Impression: XR/XR chest 1V IMPRESSION: Mild central vascular prominence. No overt pulmonary edema. Independent Historian Clinical information obtained from an independent historian. History obtained from or confirmed by: EMS External Record Review External record reviewed: Office record, Outpatient record, Prior outpatient labs and Prior outpatient radiology Prescription Management I considered prescription management with: Pain Medication, Antiviral and Antibiotic Chronic Conditions Patient?s care impacted by: Other (schizoaffective disorder, HTN) Critical Care Time Critical Care Time Critical Care Time: Yes Total Critical Care Time: 55 Attestation: I have personally provided critical care time exclusive of time spent on separately billable procedures. Time includes review of lab data, radiology results, discussion with consultants, and monitoring for potential decompensation. Intervention performed as documented. Discharge Plan Discharge Clinical Impression: COVID-19, Acute hypotension, Dehydration Patient Disposition: Admitted As Inpatient
[2025-05-05] MEDS: Lactated Ringers 1,000 ML 999 ML IV ×3 (08:50→14:08)
[2025-05-05 08:57] LABS: MANUAL DIFF FLAG NO
[2025-05-05 09:16] LABS: Hematocrit 39.1 % (37.0-47.0); Hemoglobin 12.3 g/dl (12.0-16.0); Imm Gran Abs Auto 0.05 X10*3/uL (0.00-0.03); Imm Gran Pct Auto 0.4 % (0.0-0.4); Lymphocytes Absolute Auto 2.7 X10*3/uL (1.2-4.9); Mean Corpuscular HGB Conc 31.5 g/dl (31.0-35.0); Mean Corpuscular Hemoglobin 27.2 pg (27.0-33.0); Mean Corpuscular Volume 86.5 fL (80.0-98.0); NRBC Abs Auto 0.000 X10*3/uL (0.0-0.012); NRBC Pct Auto 0.0 /100WBC (0.0-0.2); Platelet Count 199 X10*3/uL (160-400); Red Blood Count 4.52 X10*6/uL (4.20-5.50); White Blood Count 11.8 X10*3/uL (4.8-10.8)
[2025-05-05 09:24] LABS: Alanine Aminotransferase 23 U/L (0-31); Albumin Level 3.5 g/dL (3.5-5.0); Alkaline Phosphatase 52 U/L (39-117); Anion Gap 12 (12-20); Aspartate Amino Transferase 24 U/L (5-31); Blood Urea Nitrogen 7 mg/dL (9-16); Calcium 8.9 mg/dL (8.4-10.2); Carbon Dioxide 26 mmol/L (22-29); Chloride 107 mmol/L (96-108); Creatinine Clr Calc Pharmacy 124.8; Estimated Glomerular Filt Rate > 60; Magnesium 1.8 mg/dL (1.6-2.6); Potassium 3.4 mmol/L (3.3-5.1); Sodium 142 mmol/L (135-145); Total Protein 6.2 g/dL (6.5-8.0)
[2025-05-05 09:56] LABS: Resp Syncy Virus RNA Qual PCR NEGATIVE (Negative); SARS COV2 PCR INHOUSE POSITIVE (Negative)
[2025-05-05 15:08] LABS: NT Pro B Type Natriuretic Pept 251.4 pg/mL (<300)
--- NOTE | 2025-05-05 15:09 | ECG_ITS ---
Test Reason : weakness Blood Pressure : */* mmHG Vent. Rate : 99 BPM Atrial Rate : 99 BPM P-R Int : 118 ms QRS Dur : 88 ms QT Int : 360 ms P-R-T Axes : 52 58 33 degrees QTcB Int : 462 ms Normal sinus rhythm Low voltage QRS Borderline ECG When compared with ECG of 03-May-2025 12:41, No significant change was found Referred By: Naheed Esquivel Electronically Signed By: Tommy Gill
--- NOTE | 2025-05-05 16:49 | PHA.MEDREC ---
Pharmacy Consult ? Medication Reconciliation Pharmacy has completed the medication reconciliation. [facility] with [facility] from [facility] regarding list of medications. [facility] of medications [facility] from [facility]. Patient takes Clozaril 125 mg in AM and Clozaril 350 mg bedtime. Lisinopril was held today due to SBP. Nicotine patches started today.
--- NOTE | 2025-05-05 17:36 | P.HPHOSP_ITS ---
History of Present Illness Date of Service: 05/05/25 Chief Complaint: Nausea, cough 49-year-old female with past medical history significant for MDD, bipolar disorder, schizophrenia, T2 dm, HTN, GERD who presented from [facility] complaining of productive cough that began 2 days ago, nausea, vomiting and generalized malaise. Patient had tested positive for COVID-19 at her [facility] [facility] yesterday, today patient received her antihypertensive and was found to be hypotensive with BP 97/38-> 80/39 requiring IV fluids and midodrine with improvement. Patient admitted for hypotension and COVID-19 pneumonia. Of note, patient mentions that she has history of smoking, quit 16 days ago. Has been smoking for over 38 years. Denies having COVID vaccine Review of Systems 2 Review of Systems: Fourteen point review of systems obtained, negative except as stated above. [facility] Medical History Acute psychosis Gram-positive bacteremia HTN (hypertension) Diabetes Social History Household Members: Other Household Members Other:: [facility] Housing: Other Housing Other:: Retirement Do you presently have visiting nurse or other home services: No Alcohol intake: never Patient Tobacco Use Status: Former Tobacco user Tobacco use type: Cigarette Cigarette Packs Per Day: 0.5 Cigarettes Per Day: 10.0 Years Smoked: 36 e-Cigarette/Vaping Use: Currently Using Second Hand Smoke Exposure: Yes Advance Directives: No Advance Directives Information Provided: Yes Do you have a plan to hurt others: No Plan service: No Current occupational status: disabled Sexual orientation: Straight/Heterosexual Meds Allergies Allergy/AdvReac Type Severity Reaction Status Date / Time Sulfa (Sulfonamide Allergy Intermediate PUFFY EYES Verified 05/05/25 08:26 Antibiotics) (SULFA (SULFONAMIDE ANTIBIOTICS)) Penicillins (PENICILLINS) Allergy Mild PT STATES Verified 05/05/25 08:26 NOTHING HAPPENS, ALLG LISTED ON TRANF SHEET acid Allergy Unknown Unknown Uncoded 05/05/25 08:26 Active Medications: Current Medications Acetaminophen (Acetaminophen 325 Mg Tablet) 650 mg PO Q6H PRN PRN Reason: Pain, Mild 1-3,fever,headache Ascorbic Acid (Ascorbic Acid 500 Mg Tablet) 500 mg PO BID CARLEEN Benzonatate (Benzonatate 100 Mg Capsule) 100 mg PO TID PRN PRN Reason: Cough Calcium Carbonate (Calcium Carbonate 750 Mg Tab.Chew) 750 mg PO Q4H PRN PRN Reason: Heartburn Clozapine (Clozapine 25 Mg Tablet) 25 mg PO DAILY CARLEEN Clozapine (Clozapine 25 Mg Tablet) 50 mg PO BEDTIME CARLEEN Clozapine (Clozapine 100 Mg Tablet) 100 mg PO DAILY [facility] Clozapine (Clozapine 100 Mg Tablet) 300 mg PO BEDTIME CARLEEN Levalbuterol HCl 2.5 mg/ (Ipratropium [place] 0.5 mg) 0 mg INHALE Q6H CARLEEN Stop: 05/05/25 17:30 Levalbuterol HCl 2.5 mg/ (Ipratropium [place] 0.5 mg) 0 mg INHALE Q6H PRN PRN Reason: Shortness of Breath/Wheezing Stop: 05/05/25 17:30 Divalproex Sodium (Divalproex Sodium Er 250 Mg Tab.Er.24h) 250 mg PO BEDTIME [facility] Divalproex Sodium (Divalproex Sodium Er 500 Mg Tab.Er.24h) 2,500 mg PO BEDTIME [facility] Enoxaparin Sodium (Enoxaparin Sodium 40 Mg/0.4 Ml Syringe) 40 mg SUBCUT Q24H [facility] Insulin Glargine (Insulin Glargine,Hum.Rec.Anlog 100 Unit/Ml 10 Ml Vial) 65 unit SUBCUT BEDTIME [facility] Magnesium Hydroxide (Milk Of Magnesia 30 Ml Oral.Susp) 30 ml PO DAILY PRN PRN Reason: Constipation Melatonin (Melatonin 3 Mg Tablet) 6 mg PO BEDTIME PRN PRN Reason: Insomnia Methylprednisolone Sodium Succinate (Methylprednisolone Sod Succ 40 Mg/Ml Vial) 40 mg IVPUSH Q8H [facility] Nicotine (Nicotine 7 Mg Patch.Td24) 7 mg TRANSDERMA DAILY [facility] Non-Formulary Medication (Omeprazole) 1 cap PO DAILY@0630 [facility] Perphenazine (Perphenazine 4 Mg Tablet) 4 mg PO DAILY PRN PRN Reason: Agitation Perphenazine (Perphenazine 4 Mg Tablet) 4 mg PO BID [facility] Senna (Sennosides 8.6 Mg Tablet) 8.6 mg PO DAILY [facility] Sertraline HCl (Sertraline Hcl 50 Mg Tablet) 50 mg PO DAILY [facility] Sodium Chloride (0.9 % Sodium Chloride Flush 3 Ml Syringe) 3 ml IVFLUSH QSHIFT [facility] Home Medications ?Medication ?Instructions ?Recorded ?Confirmed ?Last Taken ?Type ferrous sulfate 325 mg (65 mg 325 mg PO DAILY 03/07/22 05/05/25 05/05/25 History iron) tablet metoprolol tartrate 25 mg tablet 1 tab PO BID 03/07/22 05/05/25 05/05/25 History omeprazole 20 mg capsule,delayed 1 cap PO DAILY@0630 1 05/05/25 05/05/25 History release docusate sodium 100 mg capsule 100 mg PO BID Constipat ion 04/21/22 05/05/25 05/05/25 History (Colace) divalproex 500 mg tablet,extended 2,500 mg PO BEDTIME 12/01/23 05/05/25 05/04/25 History release 24 hr lisinopril 10 mg tablet 10 mg PO DAILY 12/01/2304/1905/04/25 History perphenazine 4 mg tablet 4 mg PO BID 12/01/23 05/05/25 History sennosides 8.6 mg tablet (senna) 8.6 mg PO DAILY 06/0805/05/25 05/05/25 History dulaglutide 3 mg/0.5 mL 3 mg subcut WE@0900 06/10/24 05/05/25 05/05/25 History subcutaneous pen injector (Trulicity) ascorbic acid (vitamin C) 500 mg 500 mg PO BID 5 05/05/25 05/05/25 History tablet insulin aspar prt-insulin aspart See Protocol subcut T IDAC 01/29/25 05/05/25 Unknown History 100 unit/mL (70-30) subcutaneous soln (Novolog Mix 70-30 U-100 Insuln) metformin 500 mg tablet,extended 1,000 mg PO BIDWM 05/1305/05/25 05/05/25 History release 24 hr clozapine 100 mg tablet 100 mg PO DAILY 05/05/2505/05/25 History clozapine 100 mg tablet 300 mg PO BEDTIME 05/05/25 1 07/06/24 05/04/25 History clozapine 25 mg tablet 25 mg PO DAILY 05/05/2504/1905/05/25 History clozapine 50 mg tablet 50 mg PO BEDTIME 05/05/2505/04/25 History glucagon 3 mg/actuation nasal spray 3 mg intranasal Q1 5M PRN 05/05/25 05/05/25 Unknown History Hypoglycemia insulin glargine 100 unit/mL (3 65 unit subcut BEDTIME 05/05/25 05/05/25 05/04/25 History mL) subcutaneous pen (Lantus Solostar U-100 Insulin) nicotine 7 mg/24 hr daily 1 patch transdermal DAILY 05/05/25 05/05/25 History transdermal patch nystatin 100,000 unit/gram topical 1 appl topical BID 05/05/25 05/05/25 05/05/25 History powder perphenazine 4 mg tablet 4 mg PO DAILY PRN Agitation 05/05/25 05/05/25 Unknown History sertraline 50 mg tablet 50 mg PO DAILY 05/05/2504/1905/05/25 History Physical Exam 2 Vital Signs and Narrative: Vital Signs: Last Vital Signs Temp 98.1 F 05/05/25 15:43 Pulse 99 05/05/25 15:43 Resp 19 05/05/25 15:43 BP 118/86 05/05/25 15:43 Pulse Ox 97 05/05/25 17:10 O2 Del Method Room Air 05/05/25 17:10 BMI result Body Mass Index 45.7 General: AxOx3, ill-appearing Head: AT/NC ENT: Moist mucous membranes Neck: supple CVS; increased rate and rhythm Lungs: Decreased expansion, rhonchi in bilateral bases Abd: Soft non tender, non distended Ext: No edema and no calf tenderness MSK: moving all 4 limbs Skin: No cyanosis or edema Psych: Cooperative with exam Neurology: no focal deficit Results Labs 05/05/25 08:49 05/05/25 08:49 Labs: Laboratory Results - last 24 hr 05/05/25 05/05/25 05/05/25 08:49 09:11 14:08 MCV 86.5 MCH 27.2 MCHC 31.5 RDW 14.6 Plt Count 199 MPV 9.8 Immature Gran % (Auto) 0.4 Neut % (Auto) 69.0 Lymph % (Auto) 22.8 [place] % (Auto) 7.3 Eos % (Auto) 0.3 Baso % (Auto) 0.2 Lymph # (Auto) 2.7 [place] # (Auto) 0.9 Eos # (Auto) 0.0 Baso # (Auto) 0.0 Abs Immat Gran (auto) 0.05 H Absolute Neuts (auto) 8.2 Absolute Nucleated RBC 0.000 Nucleated RBC % (auto) 0.0 Anion Gap 12 Estim Creat Clear Calc 124.8 Estimated GFR > 60 Random Glucose 113 Lactic Acid 1.4 Calcium 8.9 Magnesium 1.8 Total Bilirubin 0.2 Direct Bilirubin < 0.2 AST 24 ALT 23 Alkaline Phosphatase 52 NT-Pro-B Natriuret Pep 251.4 Total Protein 6.2 L Albumin 3.5 Influenza Type A (PCR) NEGATIVE Influenza Type B (PCR) NEGATIVE RSV RNA Qual (PCR) NEGATIVE SARS-CoV-2 RNA (RT-PCR) POSITIVE A Imaging Radiologist's Impressions: Impressions Chest X-Ray 05/05/25 08:51 IMPRESSION: Mild central vascular prominence. No overt pulmonary edema. Electronically signed by: Jerardo Serna MD 05/05/2025 09:12 AM [facility] Assessment and Plan (1) Schizophrenia: Qualifiers: Schizophrenia type: paranoid schizophrenia Qualified Code(s): F20.0 - Paranoid schizophrenia Status: Acute (2) Sepsis: Status: Acute (3) COVID-19: Status: Acute Plan Assessment: 49-year-old female who presented to the hospital for generalized malaise, tested positive yesterday for COVID-19 pneumonia. Sepsis secondary to COVID-19 pneumonia COVID-19 pneumonia -COVID positive -imaging reviewed with x-ray showing central vascular prominence -patient hypotensive, we will defer from given diuretics at this time -we will initiate methylprednisolone 40 mg q.8 hours, we will place on PPI while patient is on high-dose steroids -scheduled Xopenex and leave p.r.n. -Mucinex and tessalon perles ordered -incentive spirometer -D-dimer ordered -isolation precautions T2 dm Continue with basal insulin, insulin sliding scale ordered Hypertension, chronic We will hold off on blood pressure medications given patient's hypotension. Schizophrenia MDD -restarted home medications, if patient has worsening behavioral disorders, we will consult Psychiatry FEN: NI, replete as needed, diabetic GI PPx: PPI DVT PPx: Lovenox Codes Status: Full Code Disposition: Patient will be admitted for hypotension and COVID-19. We will hold off on blood pressure medications, if improved and not requiring any oxygen, to consider discharging back to nursing facility on precautions. Total time managing care of this patient today: 75 minutes. Quality Stroke Does the patient have a stroke diagnosis?: No VTE Prior VTE?: No VTE Risk Level:: Medical - moderate - high VTE Device Contraindication: N/A - Device Ordered VTE Drug Contraindication: N/A - Med Ordered
[2025-05-05] MEDS: levalbuterol HCL 2.5 MG, Ipratropium Bromide 0.5 MG INHALE (18:11)
--- NOTE | 2025-05-05 18:26 | HO.NURTONUR ---
Pt is a 49yo F biba from [facility]. PMH- MDD, bipolar schizophrenia, DM2, HTN, GERD. Pt c/o productive cough x2 days, nausea, generalized weakness. +covid test at home. While in ED pt became hypotensive. given IVF and midodrine with improvement. Plan is to admit for covid pna and hypotension. Pt is a/ox4. Calm and cooperative. Ambulates independently at home however has felt weak while in the ED, 1 assist to bedside commode. Diabetic diet ordered. Pt is on RA, productive cough, afebrile. VSS at this time.
[2025-05-05 18:35] LABS: D Dimer High Sensitivity 157 NG/ML
--- NOTE | 2025-05-05 19:40 | PC.NURSE ---
Assumed care of pt, presents to the ED for feeling unwell/cough N/V/D x1 week, pt is from a [facility], pt tested positive for Covid yesterday, pt is aaox4, nad, VSS, pending admission
[2025-05-05] MEDS: guaiFENesin DM 600/30 1 TAB TAB.ER.12H PO (22:30)
[2025-05-05] MEDS: Insulin Glargine,Hum.rec.anlog 100 UNIT/ML 10 ML VIAL 65 UNIT SUBCUT (22:30)
[2025-05-05] MEDS: Divalproex Sodium ER 250 MG TAB.ER.24H PO (22:30)
[2025-05-05 22:31] LABS: Glucose, Whole Blood 146 mg/dL (60-115)
[2025-05-06] VITALS (8 sets, daily range): BP systolic 105–134; BP diastolic 52–68; PULSE 95–105; RESP 16–22; TEMP 36.1–37.1; O2SAT 93–97; BMI 45.7
[2025-05-06 04:37] LABS: Hematocrit 32.7 % (37.0-47.0); Hemoglobin 10.6 g/dl (12.0-16.0); Mean Corpuscular HGB Conc 32.4 g/dl (31.0-35.0); Mean Corpuscular Hemoglobin 27.7 pg (27.0-33.0); Mean Corpuscular Volume 85.4 fL (80.0-98.0); NRBC Abs Auto 0.000 X10*3/uL (0.0-0.012); NRBC Pct Auto 0.0 /100WBC (0.0-0.2); Platelet Count 184 X10*3/uL (160-400); Red Blood Count 3.83 X10*6/uL (4.20-5.50); White Blood Count 9.3 X10*3/uL (4.8-10.8)
[2025-05-06 05:07] LABS: Anion Gap 14 (12-20); Blood Urea Nitrogen 10 mg/dL (9-16); Calcium 8.5 mg/dL (8.4-10.2); Carbon Dioxide 24 mmol/L (22-29); Chloride 108 mmol/L (96-108); Creatinine Clr Calc Pharmacy 138.9; Estimated Glomerular Filt Rate > 60; Magnesium 1.9 mg/dL (1.6-2.6); Potassium 4.2 mmol/L (3.3-5.1); Sodium 142 mmol/L (135-145)
[2025-05-06 05:27] LABS: Thyroid Stimulating Hormone 1.25 uIU/mL (0.32-4.0)
[2025-05-06] MEDS: levalbuterol HCL 1.25 MG, Ipratropium Bromide 0.5 MG INHALE ×2 (07:50→19:19)
--- NOTE | 2025-05-06 08:29 | HO.PM.IMPN ---
Subjective Subjective Date of Service: 05/06/25 Interval History: Patient seen and examined at bedside this morning, patient no longer hypotensive, refers that she is feeling better, however persists with cough and generalized weakness and pain. Review of Systems Review of Systems: Yes all other systems are reviewed and are negative Physical Exam Exam: Exam: General: AxOx3, ill-appearing Head: AT/NC ENT: Moist mucous membranes Neck: supple CVS; increased rate and rhythm Lungs: Decreased expansion, rhonchi in bilateral bases Abd: Soft non tender, non distended Ext: No edema and no calf tenderness MSK: moving all 4 limbs Skin: No cyanosis or edema Psych: Cooperative with exam Neurology: no focal deficit Vital Signs: Vital Signs: Last Vital Signs Temp 98.8 F 05/06/25 05:33 Pulse 102 H 05/06/25 07:47 Resp 17 05/06/25 07:47 BP 129/68 05/06/25 05:33 Pulse Ox 94 05/06/25 05:33 O2 Del Method Room Air 05/06/25 05:33 BMI result Body Mass Index 45.7 Objective Data Active Medications Acetaminophen (Acetaminophen 325 Mg Tablet) 650 mg PO Q6H PRN PRN Reason: Pain, Mild 1-3,fever,headache Ascorbic Acid (Ascorbic Acid 500 Mg Tablet) 500 mg PO BID COUNT INCLUDES THE [facility] Last Admin: 05/05/25 22:30 Dose: 500 mg Documented By: SEAN Benzonatate (Benzonatate 100 Mg Capsule) 100 mg PO TID PRN PRN Reason: Cough Calcium Carbonate (Calcium Carbonate 750 Mg Tab.Chew) 750 mg PO Q4H PRN PRN Reason: Heartburn Clozapine (Clozapine 100 Mg Tablet) 350 mg PO BEDTIME COUNT INCLUDES THE [facility] Last Admin: 05/05/25 22:28 Dose: 350 mg Documented By: SEAN Clozapine 100 mg/ Clozapine 25 (mg) 125 mg PO DAILY COUNT INCLUDES THE [facility] Levalbuterol HCl 1.25 mg/ (Ipratropium [place] 0.5 mg) 0 mg INHALE RQ6H WHILE AWAKE COUNT INCLUDES THE [facility] Last Admin: 05/06/25 07:50 Dose: 1.5 dose Documented By: RYDER Divalproex Sodium (Divalproex Sodium Er 250 Mg Tab.Er.24h) 250 mg PO BEDTIME COUNT INCLUDES THE [facility] Last Admin: 05/05/25 22:30 Dose: 250 mg Documented By: SEAN Divalproex Sodium (Divalproex Sodium Er 500 Mg Tab.Er.24h) 2,500 mg PO BEDTIME COUNT INCLUDES THE [facility] Last Admin: 05/05/25 22:29 Dose: 2,500 mg Documented By: SEAN Enoxaparin Sodium (Enoxaparin Sodium 40 Mg/0.4 Ml Syringe) 40 mg SUBCUT Q24H COUNT INCLUDES THE [facility] Last Admin: 05/05/25 17:54 Dose: 40 mg Documented By: JAYY Guaifenesin/Dextromethorphan (Guaifenesin Dm 600/30 1 Tab Tab.Er.12h) 1 tab PO BID COUNT INCLUDES THE [facility] Last Admin: 05/05/25 22:30 Dose: 1 tab Documented By: SEAN Insulin Glargine (Insulin Glargine,Hum.Rec.Anlog 100 Unit/Ml 10 Ml Vial) 65 unit SUBCUT BEDTIME COUNT INCLUDES THE [facility] Last Admin: 05/05/25 22:30 Dose: 65 unit Documented By: SEAN Magnesium Hydroxide (Milk Of Magnesia 30 Ml Oral.Susp) 30 ml PO DAILY PRN PRN Reason: Constipation Melatonin (Melatonin 3 Mg Tablet) 6 mg PO BEDTIME PRN PRN Reason: Insomnia Methylprednisolone Sodium Succinate (Methylprednisolone Sod Succ 40 Mg/Ml Vial) 40 mg IVPUSH Q8H COUNT INCLUDES THE [facility] Last Admin: 05/06/25 03:42 Dose: 40 mg Documented By: SEAN Nicotine (Nicotine 7 Mg Patch.Td24) 7 mg TRANSDERMA DAILY COUNT INCLUDES THE [facility] Omeprazole (Omeprazole 20 Mg Capsule.Dr) 20 mg PO DAILY@0630 COUNT INCLUDES THE [facility] Last Admin: 05/06/25 06:11 Dose: 20 mg Documented By: COOPEAlexus Perphenazine (Perphenazine 4 Mg Tablet) 4 mg PO DAILY PRN PRN Reason: Agitation Perphenazine (Perphenazine 4 Mg Tablet) 4 mg PO BID COUNT INCLUDES THE [facility] Last Admin: 05/05/25 22:39 Dose: 4 mg Documented By: SEAN Senna (Sennosides 8.6 Mg Tablet) 8.6 mg PO DAILY COUNT INCLUDES THE [facility] Sertraline HCl (Sertraline Hcl 50 Mg Tablet) 50 mg PO DAILY COUNT INCLUDES THE [facility] Sodium Chloride (0.9 % Sodium Chloride Flush 3 Ml Syringe) 3 ml IVFLUSH QSHIFT COUNT INCLUDES THE [facility] Last Admin: 05/06/25 01:13 Dose: Not Given Documented By: SEAN Non-Admin Reason: Patient Asleep Labs 05/06/25 04:07 05/06/25 04:07 Labs: Laboratory Results - last 24 hr 05/05/25 05/05/25 05/05/25 08:49 09:11 14:08 MCV 86.5 MCH 27.2 MCHC 31.5 RDW 14.6 Plt Count 199 MPV 9.8 Immature Gran % (Auto) 0.4 Neut % (Auto) 69.0 Lymph % (Auto) 22.8 [place] % (Auto) 7.3 Eos % (Auto) 0.3 Baso % (Auto) 0.2 Lymph # (Auto) 2.7 [place] # (Auto) 0.9 Eos # (Auto) 0.0 Baso # (Auto) 0.0 Abs Immat Gran (auto) 0.05 H Absolute Neuts (auto) 8.2 Absolute Nucleated RBC 0.000 Nucleated RBC % (auto) 0.0 D-Dimer High Sensitivty Anion Gap 12 Estim Creat Clear Calc 124.8 Estimated GFR > 60 POC Glucose Random Glucose 113 Lactic Acid 1.4 Calcium 8.9 Magnesium 1.8 Total Bilirubin 0.2 Direct Bilirubin < 0.2 AST 24 ALT 23 Alkaline Phosphatase 52 NT-Pro-B Natriuret Pep 251.4 Total Protein 6.2 L Albumin 3.5 TSH Influenza Type A (PCR) NEGATIVE Influenza Type B (PCR) NEGATIVE RSV RNA Qual (PCR) NEGATIVE SARS-CoV-2 RNA (RT-PCR) POSITIVE A 05/05/25 05/05/25 05/06/25 18:09 22:28 04:07 MCV 85.4 MCH 27.7 MCHC 32.4 RDW 14.1 Plt Count 184 MPV 9.7 Immature Gran % (Auto) Neut % (Auto) Lymph % (Auto) [place] % (Auto) Eos % (Auto) Baso % (Auto) Lymph # (Auto) [place] # (Auto) Eos # (Auto) Baso # (Auto) Abs Immat Gran (auto) Absolute Neuts (auto) Absolute Nucleated RBC 0.000 Nucleated RBC % (auto) 0.0 D-Dimer High Sensitivty 157 Anion Gap 14 Estim Creat Clear Calc 138.9 Estimated GFR > 60 POC Glucose 146 H Random Glucose 120 H Lactic Acid Calcium 8.5 Magnesium 1.9 Total Bilirubin Direct Bilirubin AST ALT Alkaline Phosphatase NT-Pro-B Natriuret Pep Total Protein Albumin TSH 1.25 Influenza Type A (PCR) Influenza Type B (PCR) RSV RNA Qual (PCR) SARS-CoV-2 RNA (RT-PCR) Assessment and Plan (1) Schizophrenia: Status: Acute (2) Insulin dependent type 2 diabetes mellitus: Status: Acute (3) Sepsis: Status: Acute (4) COVID-19: Status: Acute Plan Assessment: 49-year-old female who presented to the hospital for generalized malaise, tested positive yesterday for COVID-19 pneumonia. Sepsis secondary to COVID-19 pneumonia COVID-19 pneumonia -COVID positive -imaging reviewed with x-ray showing central vascular prominence -patient hypotensive, we will defer from given diuretics at this time, improved -continue methylprednisolone 40 mg q.8 hours, continue PPI while patient is on high-dose steroids -scheduled Xopenex and leave p.r.n. -Mucinex and tessalon perles ordered -incentive spirometer -D-dimer ordered -isolation precautions T2 dm Continue with basal insulin, insulin sliding scale ordered Hypertension, chronic We will hold off on blood pressure medications given patient's hypotension. Schizophrenia MDD -restarted home medications, if patient has worsening behavioral disorders, we will consult Psychiatry FEN: NI, replete as needed, diabetic GI PPx: PPI DVT PPx: Lovenox Codes Status: Full Code Disposition: Patient will be admitted for hypotension and COVID-19. We will hold off on blood pressure medications, if improved and not requiring any oxygen, to consider discharging back to nursing facility on precautions. Total time managing care of this patient today: 45 minutes. Quality Stroke Does the patient have a stroke diagnosis?: No VTE Prior VTE?: No VTE Risk Level:: Medical - moderate - high VTE Device Contraindication: N/A - Device Ordered VTE Drug Contraindication: N/A - Med Ordered
[2025-05-06 08:59] LABS: Neut%MD 77.4 %; WBCANC 7.3 X10*3/uL
[2025-05-06] MEDS: 0.9 % Sodium Chloride Flush 3 ML SYRINGE IVFLUSH ×2 (08:59→21:34)
[2025-05-06] MEDS: Nicotine 7 MG PATCH.TD24 TRANSDERMA (08:59)
[2025-05-06] MEDS: guaiFENesin DM 600/30 1 TAB TAB.ER.12H PO ×2 (11:04→21:30)
--- NOTE | 2025-05-06 11:40 | MHC.CM.PN ---
[facility] was addressed with Patient verbally r/t (+) Covid. Returning to the Longterm is Patient's goal and CM has initiated and will follow for dc planning. PCP is Dr. Hernández and will transport at dc. Patient's SisterGurdeep is the HCP.
--- NOTE | 2025-05-06 14:19 | PC.NURSE ---
pt moved from ED bed 1 into overflow bed 4. report received from Miriam PAREDES
--- OUTSIDE RECORDS SUMMARY | 2025-05-06 17:58 | XMS_ITS | Encounter Summary ---
Author Organization [employer] Address [address] [place] [id number] Care Team Providers Care Senior Project Engineer Name Role Phone Jd Cordova MD Primary Care Prov ider Toribio Posada RN Unavailable [phone] Laurence Macedo Unavailable Encounter Details Date Type Department Care Team (Late Contact Info) Description 02/20/2023 Abstract [facility] [employer] [address] [place] [address] Jd Cordova MD [address] [place], [place] [phone] Social History Tobacco Use Types Packs/Day Years [...] Department Care Team (Late Contact Info) Description 07/01/2025 11:15 AM EST Office Visit [facility] [address] [place], [place] [phone] Jd Cordova MD [address] [place], [place] [phone] documented as of this encounter Visit Diagnoses Not on filedocumented in this encounter Care Teams Senior Project Engineer Relationship Specialty Start Date End Date Jd Cordova MD [address] [place] [address] PCP - General Internal Medicine 06/30/19 Toribio Posada RN [address] [place] [address] Registered Nurse Family Medicine 01/29/25 02/19/25 Laurence Macedo 02/08/25 02/19/25 documented as of this encounter
--- OUTSIDE RECORDS SUMMARY | 2025-05-06 17:58 | XMS_ITS | Encounter Summary ---
Author Organization [employer] Address [address] [place] [phone] Care Team Providers Care Planning Advisor Name Role Phone Jd Cordova MD Primary Care Prov ider Encounter Details Date Type Department Care Team (Late st Contact Info) Description 05/03/2025 Orders Only GENERIC EXTERNAL DATA DEPARTMENT Provider, [...] Care Team (Late st Contact Info) Description 07/01/2025 11:15 AM EST Office Visit [facility] [address] [place] [address] Jd Cordova MD [address] [place] [address] documented as of this encounter Goals Goal Patient Goal Type Associated Problems Recent Progress Patient-Stated? Author Help patients manage their type 2 diabetes Care Plan Help patients manage their type 2 diabetes No Estuardo Macedo Weekly blood pressure task Care Plan Weekly blood pressure task No Estuardo Macedo Help patients manage their type 2 diabetes Care Plan Help patients manage their type 2 diabetes No Estuardo Macedo Patient has chronic kidney disease Care Plan Patient has chronic kidney disease No Estuardo Macedo Weekly blood pressure task Care Plan Weekly blood pressure task No Estuardo Macedo Patient has chronic kidney disease Care Plan Patient has chronic kidney disease Estuardo Goldberg Weekly blood pressure task Care Plan Weekly blood pressure task No Jaqui Garcia LPN Weekly blood pressure task Care Plan Weekly blood pressure task No Jaqui Garcia LPN Patient has chronic kidney disease Care Plan Patient has chronic kidney disease No Jaqui Garcia LPN Patient has chronic kidney disease Care Plan Patient has chronic kidney disease No Jaqui Garcia LPN documented as of this encounter Procedures Procedure Name Priority Date/Time Associated Diagnosis Comments XR CHEST 1 VIEW Routine 05/05/2025 8:51 AM EST URINALYSIS WITH REFLEX MICROSCOPIC Routine 05/03/2025 3:50 PM EST documented in this encounter Results * XR Chest 1 View (05/05/2025 8:51 AM EST) Anatomical Region Laterality Modality Chest Radiographic Viridiana ging 05/05/2025 8:51 AM EST Narrative 05/05/2025 9:15 AM EST [place] [address] XRay Report Signed Patient: Yuni Dhillon MR#: [id number] : 1975 Acct:[id number] Age/Sex: 49 / F ADM Date: 05/05/25 Loc: .ED Attending Dr: Ordering Physician: Naheed Esquivel Date of Service: 05/05/25 Procedure(s): XR chest 1V Accession Number(s): [id number] cc: Jd Cordova MD; Naheed Esquivel Reason for Exam: sob EXAMINATION: XR CHEST CLINICAL INFORMATION: sob COMPARISON: X-ray 12/02/2023 TECHNIQUE: Frontal view of the chest was obtained. FINDINGS: Heart is normal in size. Overlying monitoring leads. Mild central vascular prominence, right greater than left. No focal consolidation. No effusion. No pneumothorax. No acute osseous findings XR/XR chest 1V IMPRESSION: Mild central vascular prominence. No overt pulmonary edema. Electronically signed by: Jerardo Serna MD 05/05/2025 09:12 AM EST RP Dictated By: Jerardo Serna MD Signed By: <Electronically signed by Jerardo Serna MD in [place]> 05/05/25911 DD/ 0 TD/TT: 05/05/25851 Global Climate Change Analyst: MIKALA Procedure Note Donotuseinterpreter, Image - 05/05/[address] [address] XRay Report Signed Patient: Yuni DhillonMR#: [id number] : 1975Acct:[id number] Age/Sex: 49 / FADM Date: 05/05/25 Loc: HO.ED Attending Dr: Ordering Physician: Naheed Esquivel Date of Service: 05/05/25 Procedure(s): XR chest 1V Accession Number(s): [id number] cc: Jd Cordova MD; Naheed Esquivel Reason for Exam: sob EXAMINATION: XR CHEST CLINICAL INFORMATION: sob COMPARISON: X-ray 12/02/2023 TECHNIQUE: Frontal view of the chest was obtained. FINDINGS: Heart is normal in size. Overlying monitoring leads. Mild central vascular prominence, right greater than left. No focal consolidation. No effusion. No pneumothorax. No acute osseous findings XR/XR chest 1V IMPRESSION: Mild central vascular prominence. No overt pulmonary edema. Electronically signed by: Jerardo Serna MD 05/05/2025 09:12 AM EST RP Dictated By: Jerardo Serna MD Signed By: <Electronically signed by Jerardo Serna MD in [place]> 05/05/25911 DD/ 0 TD/TT: 05/05/25851 Global Climate Change Analyst: MIKALA [facility] External Provider IMG XR PROCEDURES Final Result * Urinalysis w/reflex microscopic (05/03/2025 3:50 PM EST) Color Urine Yellow [facility] Appearance Urine Clear [facility] PH 6.5 5.0 - 9.0 [facility] Glucose Urine UA Negative Negative mg/dL [facility] Urine Blood Negative Negative [facility] Specific Wright - Urine <=1.005 1.005 - 1.025 [facility] Urine Protein Negative Neg-Trace mg/dL [facility] Urine Ketones Negative Negative mg/dL [facility] Nitrite Urine Negative Negative [facility] Leukocyte Esterase Urine Negative Negative [facility] 05/03/2025 3:50 PM EST 05/03/2025 3:58 PM EST Narrative [facility] - 05/03/2025 4:10 PM EST [id number], [employer] us Generic External Data Provider LAB URINE ORDERAB LES Final Result Performing Organization Address City/State/[facility] Co de Phone Number [facility] [address] [place] [phone] documented in this encounter Visit Diagnoses Not on filedocumented in this encounter Additional Health Concerns Active Problems Noted Date Diagnosed Date Help patients manage their type 2 diabetes 04/06 Weekly blood pressure task 04/06/2025 Help patients manage their type 2 diabetes 04/06 Patient has chronic kidney disease 04/06/2025 Weekly blood pressure task 04/06/2025 Patient has chronic kidney disease 04/06/2025 Weekly blood pressure task 04/19/2025 Weekly blood pressure task 04/19/2025 Patient has chronic kidney disease 04/19/2025 Patient has chronic kidney disease 04/19/2025 documented as of this encounter Care Teams Planning Advisor Relationship Specialty Start Date End Date Jd Cordova MD [address] [place] [phone] PCP - General Internal Medicine 06/30/19 documented as of this encounter
--- OUTSIDE RECORDS SUMMARY | 2025-05-06 17:58 | XMS_ITS | Encounter Summary ---
Author Organization [employer] Address [address] [place] [address] Care Team Providers Care Vegetable Washer Name Role Phone Jd Cordova MD Primary Care Prov ider Encounter Details Date Type Department Care Team (Late st Contact Info) Description 05/05/2025 Orders Only GENERIC EXTERNAL DATA DEPARTMENT Provider, [...] Description 07/01/2025 11:15 AM EST Office Visit [facility] [address] [place] [address] Jd Cordova MD [address] [place] [address] documented as of this encounter Goals Goal [...] chronic kidney disease No Jaqui Garcia LPN Weekly blood pressure task Care Plan Weekly blood pressure task No Colon Georgina Morales Weekly blood pressure task Care Plan Weekly blood pressure task No Colon Morales, Georgina Patient has chronic kidney disease Care Plan Patient has chronic kidney disease No Colon Andrew Georgina Patient has chronic kidney disease Care Plan Patient has chronic kidney disease No Colon Emiliano Moralesla documented as of this encounter Procedures Procedure Name Priority Date/Time Associated Diagnosis Comments LACTIC ACID Routine 05/05/2025 2:08 PM EST documented in this encounter Results * Lactic Acid (05/05/2025 2:08 PM EST) Lactic Acid 1.4 0.5 - 2.0 mmol/L [facility] 05/05/2025 2:08 PM EST 05/05/2025 2:15 PM EST us Generic External Data Provider LAB BLOOD ORDERAB LES Final Result Performing Organization Address City/State/[facility] Co de Phone Number [facility] [address] [place] [phone] documented in this encounter Visit Diagnoses [...] 04/19/2025 Patient has chronic kidney disease 04/19/2025 Weekly blood pressure task 05/04/2025 Weekly blood pressure task 05/04/2025 Patient has chronic kidney disease 05/04/2025 Patient has chronic kidney disease 05/04/2025 documented as of this encounter Care Teams Vegetable Washer Relationship Specialty Start Date End Date Jd Cordova MD [address] [place] [phone] PCP - General Internal Medicine 06/30/19 documented as of this encounter
--- OUTSIDE RECORDS SUMMARY | 2025-05-06 17:58 | XMS_ITS | Clinical Summary ---
Author Organization [employer] Address [address] [facility] [address] [place] [address] Care Team Providers Care Packaging Inspector Name Role Phone Jd Cordova MD Primary [...] daily. 355 mL 023 Active cloZAPine (Clozaril) 25 MG tablet Take 3 tablets by mouth Once per day. 023 Active divalproex (Depakote ER) 500 MG [...] tablet by mouth twice daily 023 Active insulin lispro (HumaLOG) 100 UNIT/ML injection Inject under the skin per sliding scale up to 27 units three times a day with meals. Max 85 units/day Active GNP UltiCare Pen [place] 31G X 5 MM misc Use as directed with insulin daily 100 each 11 023 Active FreeStyle lancets Active Trulicity 3 MG/0.5ML solution auto-injector Inject 3 mg under the skin every 7 (seven) days. Active FREESTYLE LITE test strip Glucose monitoring BID 100 each 3 Active nystatin (Nystop) 210668 UNIT/GM powderIndicatio ns:Candidiasis, intertrigo Apply topically 2 times daily. 60 g 2 025 2025 Active lisinopril 10 MG tabletIndicatio ns:Primary hypertension TAKE 1 TABLET BY MOUTH EVERY DAY 90 tablet 3 Active metoprolol tartrate (Lopressor) 25 MG tabletIndicatio ns:Primary hypertension Take 1 tablet (25 mg) by mouth 2 times daily. 30 tablet 11 025 2025 Active ferrous sulfate 325 (65 Fe) MG tabletIndicatio ns:Iron deficiency anemia, unspecified iron deficiency anemia type TAKE 1 TABLET BY MOUTH EVERY DAY WITH BREAKFAST 90 tablet 1 Active Senna-Time 8.6 MG tablet TAKE 1 TABLET BY MOUTH EVERY MORNING 90 tablet 1 Active omeprazole (PriLOSEC) [address] capsule TAKE 1 CAPSULE BY MOUTH EVERY DAY BEFORE A MEAL 30 capsule 5 Active sertraline (Zoloft) 100 MG tablet Take 1 tablet by mouth Once per day. Active divalproex (Depakote ER) 250 MG 24 hr tablet Take 1 tablet by mouth at bedtime. Active cloZAPine (Clozaril) 50 MG tablet Take 7 tablets by mouth at bedtime. Active ascorbic acid (Vitamin C) 500 MG tablet TAKE 1 TABLET BY MOUTH TWICE DAILY . AM AND PM 60 tablet 3 Active ascorbic acid (Vitamin C) 500 MG tablet TAKE 1 TABLET BY MOUTH TWICE DAILY 180 tablet 2 025 2024 Discontinued Active Problems Problem Noted Date Diagnosed Date Shortness of breath 02/12/2025 Assessment & Plan (02/12/2025 9:58 AM EDT): Will order PFT, lungs were clear to auscultation Cough 09/25/2023 Assessment & Plan (09/25/2023 3:34 [...] (03/02/2023 10:28 AM EDT): [facility] was [facility] due to behavioral changes and hallucinations. Depakote was titrated and currently on 2500mg daily, rest of medications stayed the same. Patient pending cbc she refers was done this past Saturday by a VNA. Patient is much mentally stable, no hallucinations no suicidal/homicidal ideas, follow up with psych Bilateral lower extremity edema 08/08/2022 Assessment & [...] labs Primary hypertension 06/21/2022 Assessment & Plan (02/12/2025 9:57 AM EDT): Controlled, keep low sodium diet and exercise as tolerated. Follow up in 3 months Assessment & Plan (12/24/2023 12:52 PM EDT): [...] compression stocking knee high 15-20mmhg Severe obesity ([facility]) 06/16/2018 023 Nicotine dependence 04/23/2016 03/01/2023 Vitamin D deficiency 04/23/2016 03/01/2023 Bipolar I disorder ([facility]) 02/10/2013 Diabetes mellitus 02/10/2013 03/01/2023 Assessment & Plan [...] voice, has scheduled follow up with psych Resolved Problems Problem Noted Date Diagnosed Date Resolved Date HTN (hypertension) 03/01/2023 03/01/2023 Essential hypertension 06/16/2018 03/01/202302/12 Assessment & Plan (09/29/2024 10:43 AM EDT): Controlled, keep low sodium diet and exercise as tolerated, keep bp log, target <130/80 Assessment & Plan (09/25/2023 3:27 PM EDT): Controlled, continue low sodium diet and exercise as tolerated, keep bp <130/80 Hypertension 02/10/2013 03/01/2023 02/12/2025 Encounters * This document contains information received from the source organization and may not represent a complete record from that organization. Date Type Department Care Team Description 05/05/2025 Orders Only GENERIC EXTERNAL DATA DEPARTMENT Provider, Generic External Data 05/04/2025 Telephone [facility] [address] [place] [address] Jd Cordova MD Nurse Triage 05/03/2025 Orders Only GENERIC EXTERNAL DATA DEPARTMENT Provider, Generic External Data 04/16/2025 Refill [facility] [address] [place] [address] Jd Cordova MD 04/06/[address] [address] Jd Cordova MD Referral 02/19/2025 Patient Outreach [address] [address] Jd Cordova MD 02/12/2025 9:00 AM EDT Office Visit [facility] [address] [place] [address] Jd Cordova MD Type 2 diabetes mellitus without complication, with long-term current use of insulin ([facility]) (Primary Dx); Primary hypertension; Shortness of breath 02/12/2025 Travel 02/08/2025 Patient Outreach [address] [address] Jd Cordova MD Care Coordination (CM/CHW outreach) 02/08/2025 Patient Outreach [address] [address] Jd Cordova MD Care Coordination (CHW chart review) 02/08/2025 Patient Outreach [address] [address] Jd Cordova MD 02/04/2025 Patient Outreach [facility] [address] [place] [address] Jd Cordova MD Transition Of Care (Tcm) (HDF Scheduled. ) 02/04/2025 Telephone [facility] [address] [place] [address] Jd Cordova MD Hospital Follow-up from Last 3 Months Immunizations Immunization Administration Dates Next Due Hep B, adult 03/24/2018,02/17/2018 Influenza injectable quadriv alent IIV4 with preservative 03/16/2022,07/09/2019,02/17/2018,04/23 Influenza injectable quadriv alent preservative free 03/01/2023 Influenza, IIV3, injectable 02/21/2010 Influenza, seasonal, injecta ble, preservative free 01/30/2025 Pneumococcal Polysaccharide PPSV23 12/26/2022, Tdap 02/17/2018 Social [...] Sign Reading Time Taken Comments Blood Pressure 138/85 02/12/2025 9:13 AM EDT Pulse 100 02/12/2025 9:13 AM EDT Temperature 37.2 C (98.9 F) 02/12/2025 9:13 AM EDT Respiratory Rate 20 02/12/2025 9:13 AM EDT Oxygen Saturation 98% 10/01/2024 3:33 PM EDT Inhaled Oxygen Concentration - - Weight 123 kg (272 lb) 02/12/2025 9:13 AM EDT Height 160 cm (5' 3 ) 10/01/2024 3:33 PM EDT Body Mass Index 48.18 10/01/2024 3:33 PM EDT Plan of Treatment Upcoming Encounters Date Type Department Care Team (Late st Contact Info) Description 07/01/2025 11:15 AM EST Office Visit [facility] [address] [place] [address] Jd Cordova MD [address] [place] [address] Health Maintenance Due Date Last Done Comments [...] of 2 - PCV) 12/27/2023 12/26/2022, 02/17/2018 Mammogram 07/12/2024 07/12/2022 Diabetes: Foot Exam 09/24/2024 09/25/2023, 09/25/2023, 09/25/2023, Additional history exists RSV Patients and Patients Aged 60 years or older (1 - Risk 50-74 years 1-dose series) 2024 Zoster Vaccines (1 of 2) 2024 COVID-19 Vaccine ( season) 2025 03/16/2022, 03/15/2021, 07/07/2020, Additional history exists Diabetes: Hemoglobin A1C 04/03/2025 025, 07/01/2024, 12/24/2023, Additional history exists Eye Exam 04/04/2025 04/04/2023, 03/20, 04/04/2023, Additional history exists Lipid Panel 10/01/2025 10/01/2024, 11/2022, 06/27/2021 Cervical Cancer Screening 12/06/2025 HPV/Cotest 12/06/2025 12/06/2020 Pap Smear 12/06/2025 12/06/2020 Tobacco Screening 02/12/2026 02/12/2025 DTaP/Tdap/Td Vaccines (2 - Td or Tdap) 02/18/2028 02/17/2018 HIV Screening Completed 06/26/2022, 07/09/2019 Hepatitis C Screening Completed 06/26/2022, 022 Influenza Vaccine Completed 01/30/2025, , 03/16/2022, Additional history exists HIB Vaccines Aged Out No longer eligi [...] on patient's age to complete this topic Goals Goal Patient Goal Type Associated Problems Recent Progress Patient-Stated? Author Help patients manage their type 2 diabetes Care Plan Help patients manage their type 2 diabetes No Estuardo Macedo Weekly blood pressure task Care Plan Weekly blood pressure task No Estuardo Maceod Help patients manage their type 2 diabetes [...] Care Plan Weekly blood pressure task No JoseBambi jansennifer, LICENSED ESTHETICIAN Weekly blood pressure task Care Plan Weekly blood pressure task No Jose Jaqui, LICENSED ESTHETICIAN Patient has chronic kidney disease Care Plan Patient has chronic kidney disease No Jose Jaqui, LICENSED ESTHETICIAN Patient has chronic kidney disease Care Plan Patient has chronic kidney disease No JoseBambi jansennifer, LICENSED ESTHETICIAN Weekly blood pressure task Care Plan Weekly blood pressure task No Colon MoralesGeorgina capellan Weekly blood pressure task Care Plan Weekly blood pressure task No Colon Andrew, Georgina Patient has chronic kidney disease Care Plan Patient has chronic kidney disease No Colon Andrew, Georgina Patient has chronic kidney disease Care Plan Patient has chronic kidney disease No Colon Morales, Georgina Procedures Procedure Name Priority Date/Time Associated Diagnosis Comments LACTIC ACID Routine 05/05/2025 2:08 PM EST XR CHEST 1 VIEW Routine 05/05/2025 8:51 AM EST URINALYSIS WITH REFLEX MICROSCOPIC Routine 05/03/2025 3:50 PM EST LIPID PANEL, STANDARD Routine 10/01/2024 4:21 PM [...] complication, with long-term current use of insulin ([facility]) Primary hypertension HPV MRNA E6/E7 Routine 12/06/2020 10:21 AM EDT THINPREP PAP Routine 12/06/2020 10:21 AM EDT ZZZ HISTORICAL MICROALBUMIN, RANDOM Routine 07/09/2019 12:04 PM EST from Last 3 Months or Most Recently Relevant to Health Maintenance Results * Lactic Acid (05/05/2025 2:08 PM EST) Lactic Acid 1.4 0.5 - 2.0 mmol/L [facility] 05/05/2025 2:08 PM EST 05/05/2025 2:15 PM EST us Generic External Data Provider LAB BLOOD ORDERAB LES Final Result [facility] [address] [place] [phone] * XR Chest 1 View (05/05/2025 8:51 AM EST) Anatomical Region Laterality Modality Chest Radiographic Viridiana ging 05/05/2025 8:51 AM EST Narrative 05/05/2025 9:15 AM EST [address] [address] XRay Report Signed Patient: Yuni Dhillon MR#: [id number] : 1975 Acct:[id number] Age/Sex: 49 / F ADM Date: 05/05/25 Loc: HO.ED Attending Dr: Ordering Physician: Naheed Esquivel Date of Service: 05/05/25 Procedure(s): XR chest 1V Accession Number(s): [id number] cc: Jd Cordova MD; Naheed Esquivel Reason [...] Jerardo Serna MD 05/05/2025 09:12 AM EST Dictated By: Jerardo Serna MD Signed By: <Electronically signed by Jerardo Serna MD in OV> 05/05/25 0912 DD/ 0851 TD/TT: 05/05/25 0852 Gutter Hanger: MIKALA Procedure Note Donotuseinterpreter, Image - 05/05/[address] [address] XRay Report Signed Patient: Yuni DhillonMR#: [id number] : 1975Acct:[id number] Age/Sex: 49 / FADM Date: 05/05/25 Loc: HO.ED Attending Dr: Ordering Physician: Naheed Esquivel Date of Service: 05/05/25 Procedure(s): XR chest 1V Accession Number(s): [id number] cc: Jd Cordova MD; Naheed Esquivel Reason [...] signed by Jerardo Serna MD in OV> 05/05/25 0912 DD/ 0851 TD/TT: 05/05/25 0852 Gutter Hanger: MIKALA [facility] External Provider IMG XR PROCEDURES Final Result * Urinalysis w/reflex microscopic (05/03/2025 3:50 PM EST) Color Urine Yellow [facility] Appearance Urine Clear [facility] PH 6.5 5.0 - 9.0 [facility] Glucose Urine UA Negative Negative mg/dL [facility] Urine Blood Negative Negative [facility] Specific [place] - Urine <=1.005 1.005 - 1.025 [facility] Urine Protein Negative Neg-Trace mg/dL [facility] Urine Ketones Negative Negative mg/dL [facility] Nitrite Urine Negative Negative [facility] Leukocyte Esterase Urine Negative Negative [facility] 05/03/2025 3:50 PM EST 05/03/2025 3:58 PM EST Narrative [facility] - 05/03/2025 4:10 PM EST [id number], Clean Catch us Generic External Data Provider LAB URINE ORDERAB LES Final Result Performing Organization Address [facility]/ZIP Co de Phone Number [facility] [address] [place] [address] [phone] * (ABNORMAL) Lipid Panel, Standard (10/01/2024 4:21 PM EDT) Triglycerides 189(H) <150 mg/dL [facility] Comment:Desirable Triglyceri de: less than 150 mg/dLBorderline High Triglyceride 150-199 mg/dLHigh Triglyceride: 200-499 mg/dLVery High Triglyceride: greater than or equal to 5OO mg/dL Cholesterol 170 <200 mg/dL [facility] Comment:Desirable Cholestero l: less than 200 mg/dLBorderline High Cholesterol: 200-239 mg/dLHigh Cholesterol: greater than 239 mg/dL LDL Cholesterol Calculated 99 <100 mg/dL [facility] Comment:Desirable LDL: less than 100 mg/dLNear Optimal/Above Optimal LDL: 110- 129 mg/dLBorderline High LDL: 130-159 mg/dLHigh LDL: 160-189 mg/dLVery High LDL: greater than or equal to 190 mg/dL HDL Cholesterol 34(L) >40 mg/dL [facility] Comment:Desirable HDL: great er than 40 mg/dL Note: This HDL assay may give artificially low results in patients with liver disease. Blood Venous blood specimen / Unknown 10/01/2024 4:21 PM EDT 10/01/2024 5:40 PM EDT us Jd Guevara MD LAB BLOOD ORDERABL ES Final Result Performing Organization Address City/[facility]/ZIP Co de Phone Number [facility] [address] [place] [address] [phone] * POCT HGB A1C (10/01/2024 4:20 PM EDT) Hemoglobin A1C 5.6 4.0 - 6.0 % QC Media Lot # [id number] Lot# Expiration Date ,278,585 Blood 10/01/2024 4:20 PM EDT Alisia Francois MD POINT OF CARE TEST ENTER/ED IT ORDERABLES Final Result * BI Mammogram Screening Tomosynthesis Bilateral (07/12/2022 10:15 AM EST) Anatomical Region Laterality Modality Breast Bilateral Mammography 07/12/2022 10:1 5 AM EST Narrative 07/13/2022 2:26 PM EST [facility] [address] [place] [address] Mammography Report Signed Patient: Yuni Dhillon MR#: [id number] : 1975 Acct:[id number] Age/Sex: 46 / F ADM Date: 07/12/22 Loc: HO.MAMMO Attending Dr: Gregorio Patel CNM Ordering Physician: GREGORIO PATEL CNM Results: 1 Negative Date of Service: 07/12/22 Follow Up: 1 Year From [facility] M[facility] Procedure(s): MM tomosynthesis screening BI Accession Number(s): [id number] cc: GREGORIO PATEL CNM EXAMINATION: MM SCREENING [...] in OV> 07/13/22 1423 DD/ 1015 TD/TT: Gutter Hanger: DILLARD Procedure Note Donotuseinterpreter, Image - 07/13/2022 Jessica [facility] [address] [place] [address] Mammography Report Signed Patient: Yuni DhillonMR#: [id number] : 1975Acct:[id number] Age/Sex: 46 / FADM Date: 07/12/22 Loc: HO.MAMMO Attending Dr: Gregorio Patel CNM Ordering Physician: GREGORIO PATELesults: 1 Negative Date of Service: 07/12/22Follow Up: 1 Year From Orig inal Mammogram Procedure(s): MM tomosynthesis screening BI Accession Number(s): [id number] cc: GREGORIO PATEL CNM EXAMINATION: MM SCREENING [...] in OV> 07/13/22 1423 DD/ 1015 TD/TT: Gutter Hanger: DILLARD [facility] External Provider IMG BI PROCEDURES Final Result * Fecal Globin by Immunochemistry (07/01/2022 12:00 AM EST) Fecal Globin By Immunochemistry SEE NOTE [facility] [place] [facility] Comment: FECAL GLOBIN BY IMMUNOCHEMISTRY Micro Number: [id number] Test Status: Final Specimen Source: Insure (tm) fobt test card Specimen Quality: Adequate Fecal Globin: Not Detected 07/01/2022 07/10/2022 8:5 2 PM EST Narrative [facility] - 07/11/2022 8:49 AM EST FASTING: UNKNOWN [facility] External Provider LAB BODY FLUIDS AND STOOLS ORDERABLES Final Result [facility] [address], [facility], [place] [address] [facility] [address], ([address]) [place] [address] * HIV-1 RNA, Quantitative, Real-Time PCR with Reflex to Genotype (RTI, PI, Integrase) (06/26/2022 10:02 AM EST) HIV 1 RNA, QN PCR NOT DETECTED copies/mL [facility] [employer] [facility], HIV 1 RNA, QN PCR NOT DETECTED Log copies/mL [facility] [employer] [facility], Comment: REFERENCE RANGE: NOT DETECTED copies/mL NOT DETECTED Log copies/mL This test was performed using Real-Time Polymerase Chain Reaction. Reportable range is 20 to 10,000,000 copies/mL (1.30-7.00 Log copies/mL). 06/26/2022 10:0 2 AM EST 06/26/2022 10:02 AM EST Narrative [facility] - 06/29/2022 9:27 PM EST FASTING:YES FASTING: YES Jd Guevara MD LAB BLOOD ORDERABL ES Final Result Performing Organization Address [facility] de Phone Number [address] [place] [address] [employer]/Ana [facility], [address] [place] [address] * Hepatitis C Antibody with Reflex to HCV, RNA, Quantitative, Real-Time PCR (06/26/2022 10:02 AM EST) Hepatitis C Antibody NON-REACT PENNIE NON-REACT PENNIE [facility] [place] [employer] Index <0.02 <1.00 [facility] [place] [facility] Comment: HCV antibody was non-reactive. There is no laboratory evidence of HCV infection. In most cases, no further action is required. However, if recent HCV exposure is suspected, a test for HCV RNA (test code 91575) is suggested. For additional information please refer to http://education.Pump!/faq/HGH09a3 (This link is being provided for informational/ educational purposes only.) Blood Venous blood specimen / Unknown 06/26/2022 10:02 AM EST 06/26/2022 10:02 AM EST Narrative [facility] - 06/29/2022 9:27 PM EST FASTING:YES FASTING: YES Jd Guevara MD LAB BLOOD ORDERABL ES Final Result Performing Organization Address [facility] Co de Phone Number [address], [place] [address] [employer] [place] [facility] [address] [place] [address], ([address]) [place] [address] * THINPREP PAP (12/06/2020 10:21 AM EDT) [...] along with historic and current clinical information. Bull Driver : SEE COMMENT [facility] Comment: HJP, CT(ASCP) CT screening location: [place] [address] Interpretation/R esult: Negative for intraepithelial lesion or malignancy. [facility] LMP: 11/11/2020 [facility] Prev. BX: NONE GIVEN [facility] Prev. PAP: NONE GIVEN [facility] SOURCE: None given [facility] Statement Of Adequacy: SEE COMMENT [facility] Comment: Satisfactory for evaluation. Endocervical/transformation zone component absent. 12/06/2020 10:2 1 AM EDT Gregorio GIBBS LAB PATHOLOGY ORDERABLES Final Result [facility] [address] * HPV mRNA E6/E7 (12/06/2020 10:21 AM EDT) HPV nRNA E6/E7 Not Detected Not Detected [facility] Comment: Methodology: Table Worker Packager-Mediated Amplification This assay detects E6/E7 viral messenger RNA (mRNA) from 14 high-risk HPV types (16,18,31,33,35,39,45,51,52,56,58,59,66,68). The analytical performance characteristics of this assay have been determined by [employer]. The modifications have not been cleared or approved by the FDA. This assay has been validated pursuant to the CLIA regulations and is used for clinical purposes. For additional information, please refer to http://education.[employer].Drill Map/faq/DUU242q9 (This link if provided for information/ educational purposes only.) 12/06/2020 10:2 1 AM EDT Gregorio GIBBS LAB BLOOD ORDERABLES Zoe l Result Performing Organization Address City/[facility]/ZIP Co de Phone Number [facility] [address] [place] [address], * MICROALBUMIN, RANDOM (07/09/2019 12:04 PM EST) CREATININE, RANDOM URINE 7.35 MG/DL [facility] MICALB/CRE RATIO RANDOM URINE Test not performed ug/mg cr [facility] Comment: Unable to calculate albumin/creatinine ratio due to low microalbumin or creatinine result. MICROALBUMIN, RANDOM URINE < 5.0 MG/L [facility] 07/09/2019 12:0 4 PM EST us Jd Guevara MD HISTORICAL/NON ORD ERABLE LABS Final Result Performing Organization Address [facility] Co de Phone Number [facility] [address] from Last 3 Months or Most Recently Relevant to Health Maintenance Additional Health Concerns Active Problems Noted Date [...] 05/04/2025 Patient has chronic kidney disease 05/04/2025 Insurance [employer] Care Teams Packaging Inspector Relationship Specialty Start Date End Date Jd Cordova MD [address] [place] [phone] PCP - General Internal Medicine 06/30/19
--- OUTSIDE RECORDS SUMMARY | 2025-05-06 17:58 | XMS_ITS | Encounter Summary ---
Author Organization [employer] Address [address] [facility] 7t [place] [address] Care Team Providers Care Consulting Services Manager Name Role Phone Jd Cordova MD Primary Care Prov ider Reason for Visit * Reason Onset Date Comments Nurse Triage 05/04/2025 Encounter Details Date Type Department Care Team (Late st Contact Info) Description 05/04/2025 Telephone [facility] MEDICINE [address] [place] [address] Jd Cordova MD [address] [place], [place] [phone] Nurse Triage Social History Tobacco Use Types [...] encounter Miscellaneous Notes * Telephone Encounter - Jenna Maurer RN - 05/04/2025 1:36 PM EST TC to case management coordinator at program to triage for covid 19 exposure and congestion. Jazmin states that yesterday at the program pt started to experience dizziness and nausea. Pt sugar was 165 and was foundto have a blood pressure of 90/70. Pt was seen at [facility] with these symptoms including chest congestion. Pt was sent back and this morning woke up feeling worse. Pt tested positive for covid. Denies any fevers or breathing concerns, no SOB, O2 stable. Pt HR is 72 and RR 22. manager land is inquiring if pt will need to be treated with Paxlovid. Nurse advised that due to this being a positive test outside of clinic, unsure of medication treatment. Nurse advised message will be routed to PCP to advise, agrees to plan. Protocol Used: COVID-19 - Diagnosed or Suspected (Adult) Protocol-Based Disposition: Home Care Positive Triage Question: * COVID-19 diagnosed by positive lab test (e.g., PCR, rapid self-test kit) and mild symptoms (e.g.,cough, fever, others) and no complications or SOB * All higher-acuity triage questions were negative. Care Advice Discussed: * Reasons To Call Back - Fever over 103 F (39.4 C) - Chest pain or difficulty breathing occurs - Cough or other symptoms last more than 3 weeks - You become worse * Telephone Encounter - Georgina Morales - 05/04/2025 12:19 PM EST Symptoms: COVID-19 Exposure (No Symptoms), Chest Congestion Outcome: Schedule a same-day appointment or talk to a nurse or provider today Reason: Caller denied all higher acuity questions The caller accepted this outcome. Contact Sherron at [phone] documented in this encounter Plan of Treatment Upcoming Encounters Date Type Department Care Team ([facility] st Contact Info) Description 07/01/2025 11:15 AM EST Office Visit [facility] MED & PEDS [address] [place] [address] Jd Cordova MD 505 [place] [address] documented as of this encounter Goals Goal Patient Goal Type Associated Problems Recent Progress Patient-Stated? Author Help patients manage their type 2 diabetes Care Plan Help patients manage their type 2 diabetes Estuardo Goldberg Weekly blood pressure task Care Plan Weekly blood pressure task Estuardo Goldberg Help patients manage their type 2 diabetes Care Plan Help patients manage their type 2 diabetes Estuardo Goldberg Patient has chronic kidney disease Care Plan Patient has chronic kidney disease No RemingtonReinaldoEstuardo Weekly blood pressure task Care Plan Weekly blood pressure task No Remington Estuardo Patient has chronic kidney disease Care Plan Patient has chronic kidney disease No Estuardo Macedo Weekly blood pressure task Care Plan Weekly blood pressure task No Jaqui Garcia, LESLY Weekly blood pressure task Care Plan Weekly blood pressure task No Jose, Jaqui, TRANSCRIBING MACHINE MECHANIC Patient has chronic kidney disease Care Plan Patient has chronic kidney disease No JoseBambiJaqui, TRANSCRIBING MACHINE MECHANIC Patient has chronic kidney disease Care Plan Patient has chronic kidney disease No Jose, Jaqui, TRANSCRIBING MACHINE MECHANIC Weekly blood pressure task Care Plan Weekly blood pressure task No Colon Morales, Georgina Weekly blood pressure task Care Plan Weekly blood pressure task No Colon Morales, Georgina Patient has chronic kidney disease Care Plan Patient has chronic kidney disease No Colon Morales, Georgina Patient has chronic kidney disease Care Plan Patient has chronic kidney disease No Colon Morales, Georgina documented as of this encounter Visit Diagnoses [...] documented as of this encounter Care Teams Consulting Services Manager Relationship Specialty Start Date End Date Jd Cordova MD [address] [place] [address] PCP - General Internal Medicine 06/30/19 documented as of this encounter
--- OUTSIDE RECORDS SUMMARY | 2025-05-06 17:58 | XMS_ITS | Encounter Summary ---
Author Organization [employer] Address 75 [facility] 7t [place] [address] Care Team Providers Care Valve Maker Name Role Phone Jd Cordova MD Primary Care Prov ider Toribio Posada RN Unavailable [phone] Laurence Macedo Unavailable Reason for Visit * Reason Onset Date Comments Med Refill 05/03/2023 Encounter Details Date Type Department Care Team (Late st Contact Info) Description 05/03/2023 Telephone [facility] MEDICINE 230 [place] [address] Jd Cordova MD 505 [place] [address] Med Refill Social History Tobacco Use Types [...] requesting med refill on; GNP UltiCare Pen [place] 31G X 5 MM misc (4 times a day) due to insurance. documented in this encounter Plan of Treatment Upcoming Encounters Date Type Department Care Team (Late st Contact Info) Description 07/01/2025 11:15 AM EST Office Visit [facility] MED & PEDS [address] [place] [address] Jd Cordova MD 505 [place] [address] documented as of this encounter Visit Diagnoses Not on filedocumented in this encounter Care Teams Valve Maker Relationship Specialty Start Date End Date Jd Cordova MD 505 [place] [address] PCP - General Internal Medicine 06/30/19 Toribio Posada RN 505 [place] [address] Registered Nurse Family Medicine 01/29/25 02/19/25 Laurence Macedo 02/08/25 02/19/25 documented as of this encounter
--- OUTSIDE RECORDS SUMMARY | 2025-05-06 17:58 | XMS_ITS | Encounter Summary ---
Author Organization [employer] Address [address] [facility] 7t [place] [address] Care Team Providers Care Engineering Technical Analyst Name Role Phone Jd Cordova MD Primary Care Prov ider Reason for Visit * Reason Onset Date Comments Referral 04/06/2025 Encounter Details Date Type Department Care Team ([facility] st Contact Info) Description 04/06/2025 Telephone [facility] MEDICINE [address] [place] [address] Jd Cordova MD [address] [place] [phone] Referral Social History Tobacco Use Types Packs/Day [...] encounter Miscellaneous Notes * Telephone Encounter - Jud Witt RN - 04/06/2025 2:31 PM EST Tc from [facility] with [facility] requesting referral for a watch hairspring assembler and dietitian for pt. They did not state an urgent concerns. Called [facility] with [facility], regarding requests as above. States pt has DM and needs to be seen by Podiatry for routine DM foot care and possible shoes. Also, requesting referral to dieticianrelated to her DM and excess weight as well. [facility] denies anything acute or severe at this time.Will task to PCP for referral and re contact as needed. * Telephone Encounter - Estuardo Macedo - 04/06/2025 12:57 PM EST Tc from [facility] with [facility] requesting referral for a watch hairspring assembler and dietitian for pt. They did not state an urgent concerns. Please contact [facility] at [phone]. documented in this encounter Plan of Treatment Upcoming Encounters Date Type Department Care Team (Late st Contact Info) Description 07/01/2025 11:15 AM EST Office Visit [facility] MED & PEDS 505 [place], [place] [phone] Jd Cordova MD 505 [place], [place] [phone] documented as of this encounter Goals Goal [...] has chronic kidney disease No Estuardo Macedo documented as of this encounter Visit Diagnoses Not on filedocumented in this encounter Additional Health Concerns Active Problems Noted Date Diagnosed Date Help patients manage their type 2 diabetes 04/06 Weekly blood pressure task 04/06/2025 Help patients manage their type 2 diabetes 04/06 Patient has chronic kidney disease 04/06/2025 Weekly blood pressure task 04/06/2025 Patient has chronic kidney disease 04/06/2025 documented as of this encounter Care Teams Engineering Technical Analyst Relationship Specialty Start Date End Date Jd Cordova MD [address] [place], [place] [phone] PCP - General Internal Medicine 06/30/19 documented as of this encounter
--- OUTSIDE RECORDS SUMMARY | 2025-05-06 17:58 | XMS_ITS | Encounter Summary ---
Author Organization [employer] Address 75 [facility] 7t [place] [address] Care Team Providers Care Senior Interaction Designer Name Role Phone Jd Cordova MD Primary Care Prov ider Toribio Posada RN Unavailable [phone] Laurence Macedo Unavailable Reason for Visit * Reason Onset Date Comments Medication Question 09/26/2023 Encounter Details Date Type Department Care Team ([facility] st Contact Info) Description 09/26/2023 Telephone [facility] MEDICINE 230 [place] [address] Jd Cordova MD 505 [place] [address] Medication Question Social History Tobacco Use Types [...] - 09/26/2023 10:41 AM EDT Tc from [facility], staff at pt's intermediate, calling in regards to Senna-Gen 8.6 mg. Pt was prescribed Senna-Gen by psychiatrist but psychiatrist is no longer working in office and [facility] is requesting for pcp to sign medication for pt to continue taking it. If any questions you can contact [facility] at [phone]. documented in this encounter Plan of Treatment Upcoming Encounters Date Type Department Care Team ([facility] st Contact Info) Description 07/01/2025 11:15 AM EST Office [facility]ED[facility] [address] [place] [address] Jd Cordova MD [address] [place] [address] documented as of this encounter Visit Diagnoses Not on filedocumented in this encounter Care Teams Senior Interaction Designer Relationship Specialty Start Date End Date Jd Cordova MD 505 [place] [address] PCP - General Internal Medicine 06/30/19 Toribio Posada, RN 505 [place] [address] Registered Nurse Family Medicine 01/29/25 02/19/25 Laurence Macedo 02/08/25 02/19/25 documented as of this encounter
--- OUTSIDE RECORDS SUMMARY | 2025-05-06 17:58 | XMS_ITS | Encounter Summary ---
Author Organization [employer] Address 75 [facility] 7t [place] [address] Care Team Providers Care Cook Pickled Meat Name Role Phone Jd Cordova MD Primary Care Prov ider Toribio Posada RN Unavailable [phone] Laurence Macedo Unavailable Reason for Visit * Reason Onset Date Comments Med Refill 05/03/2023 Encounter Details Date Type Department Care Team (Late st Contact Info) Description 05/03/2023 Telephone [facility] MEDICINE 230 [place] [address] Jd Cordova MD [address] [place] [address] Med Refill Social History Tobacco Use Types [...] 05/03/2023 11:26 AM EST Tc from patients classification case manager calling to request a new script for GNP UltiCare Pen [place] 31G X 5 MM misc stated needs to say 4 times shayy please clarify. documented in this encounter Plan of Treatment Upcoming Encounters Date Type Department Care Team (Late st Contact Info) Description 07/01/2025 11:15 AM EST Office Visit [facility] MED & PEDS [address] [place] [address] Jd Cordova MD [address] [place] [address] documented as of this encounter Visit Diagnoses Not on filedocumented in this encounter Care Teams Cook Pickled Meat Relationship Specialty Start Date End Date Jd Cordova MD 505 [place] [address] PCP - General Internal Medicine 06/30/19 Toribio Posada, RN 505 [place] [address] Registered Nurse Family Medicine 01/29/25 02/19/25 Laurence Macedo 02/08/25 02/19/25 documented as of this encounter
--- OUTSIDE RECORDS SUMMARY | 2025-05-06 17:58 | XMS_ITS | Encounter Summary ---
Author Organization [employer] Address [address] [facility] 7t [place] [address] Care Team Providers Care Sheet Metal Worker Name Role Phone Jd Cordova MD Primary Care Prov ider Toribio Posada RN Unavailable [phone] Laurence Macedo Unavailable Reason for Visit * Reason Onset Date Comments Durable Medical Equipment 04/25/2023 Encounter Details Date Type Department Care Team (Late st Contact Info) Description 04/25/2023 Telephone [facility] MEDICINE [address] [place] [address] Jd Cordova MD [address] [place] [address] Durable Medical Equipment Social History Tobacco Use [...] AM EST Tc from [facility] with [facility] requesting DME. Diabetics shoes To be send [employer] Any questions contact [facility] [phone] documented in this encounter Plan of Treatment Upcoming Encounters Date Type Department Care Team ([facility] st Contact Info) Description 07/01/2025 11:15 AM EST Office Visit [facility] MED & PEDS 505 [place] [address] Jd Cordova MD [address] [place] [address] documented as of this encounter Visit Diagnoses Not on filedocumented in this encounter Care Teams Sheet Metal Worker Relationship Specialty Start Date End Date dJ Cordova MD 505 [place] [address] PCP - General Internal Medicine 06/30/19 Toribio Posada, RN 505 [place] [address] Registered Nurse Family Medicine 01/29/25 02/19/25 Laurence Macedo 02/08/25 02/19/25 documented as of this encounter
--- OUTSIDE RECORDS SUMMARY | 2025-05-06 17:58 | XMS_ITS | Encounter Summary ---
Author Organization [employer] Address [address] [place] [address] 7[place] [address] Care Team Providers Care Weighmaster Lead Name Role Phone Jd Cordova MD Primary Care Prov ider Toribio Posada RN Unavailable [phone] Laurence Macedo Unavailable Encounter Details Date Type Department Care Team ([facility] Contact Info) Description 01/23/2024 Telephone [facility] MED & PEDS [address] [place], [place] [phone] Jd Cordova MD 505 [place] [address] Social History Tobacco Use Types Packs/Day Years [...] 07/01/2025 11:15 AM EST Office Visit [facility] MED & PEDS 505 [place], [place] [phone] Jd Cordova MD 505 [place] [address] documented as of this encounter Visit Diagnoses Not on filedocumented in this encounter Care Teams Weighmaster Lead Relationship Specialty Start Date End Date Jd Cordova MD 505 [place] [address] PCP - General Internal Medicine 06/30/19 Toribio Posada RN 505 [place] [address] Registered Nurse Family Medicine 01/29/25 02/19/25 Laurence Macedo 02/08/25 02/19/25 documented as of this encounter
--- OUTSIDE RECORDS SUMMARY | 2025-05-06 17:58 | XMS_ITS | Encounter Summary ---
Author Organization [employer] Address [address] [place] [address] [address] [address] Care Team Providers Care Carbon Accountant Name Role Phone Jd Cordova MD Primary Care Prov ider Toribio Posada RN Unavailable [phone] Laurence Macedo Unavailable Encounter Details Date Type Department Care Team (Late Contact Info) Description 07/10/2023 Orders Only [facility] MED & PEDS 505 [place] [address] Jd Cordova MD [address] [place] [address] Social History Tobacco Use Types Packs/Day Years [...] Description 07/01/2025 11:15 AM EST Office Visit [facility] MED & PEDS 505 [place], [place] [phone] Jd Cordova MD [address] [place] [address] documented as of this encounter Visit Diagnoses Not on filedocumented in this encounter Care Teams Carbon Accountant Relationship Specialty Start Date End Date Jd Cordova MD 505 [place] [address] PCP - General Internal Medicine 06/30/19 Toribio Posada RN 505 [place] [address] Registered Nurse Family Medicine 01/29/25 02/19/25 Laurence Macedo 02/08/25 02/19/25 documented as of this encounter
--- OUTSIDE RECORDS SUMMARY | 2025-05-06 17:58 | XMS_ITS | Encounter Summary ---
Author Organization [employer] Address 75 [facility] 7[place] [address] Care Team Providers Care Baggageman Name Role Phone Jd Cordova MD Primary Care Prov ider Toribio Posada RN Unavailable [phone] Laurence Macedo Unavailable Reason for Visit * Reason Onset Date Comments Med Refill 05/01/2023 Encounter Details Date Type Department Care Team ([facility] Contact Info) Description 05/01/2023 Telephone [facility] MED & PEDS [address] [place], [place] [phone] Jd Cordova MD 505 [place] [address] Med Refill Social History Tobacco Use Types [...] PM EST Tc from [facility] working with [employer] calling to request 4 times daily and needles for Lantus SoloStar 100 UNIT/ML pen. If any questions contact Jazmin at [phone]. documented in this encounter Plan of Treatment Upcoming Encounters Date Type Department Care Team (Late st Contact Info) Description 07/01/2025 11:15 AM EST Office Visit [facility] MED & PEDS [address] [place] [address] Jd Cordova MD 505 [place] [address] documented as of this encounter Visit Diagnoses Not on filedocumented in this encounter Care Teams Baggageman Relationship Specialty Start Date End Date Jd Cordova MD 505 [place] [address] PCP - General Internal Medicine 06/30/19 Toribio Posada, RN [address] [place] [address] Registered Nurse Family Medicine 01/29/25 02/19/25 Laurence Macedo 02/08/25 02/19/25 documented as of this encounter
--- OUTSIDE RECORDS SUMMARY | 2025-05-06 17:58 | XMS_ITS | Encounter Summary ---
Author Organization [employer] Address [address] [facility] [address] [address] Care Team Providers Care Manager Life Insurance Name Role Phone Jd Cordova MD Primary Care Prov ider Toribio Posada RN Unavailable [phone] Laurence Macedo Unavailable Reason for Visit * Reason Onset Date Comments Referral 05/23/2023 Encounter Details Date Type Department Care Team ([facility] Contact Info) Description 05/23/[address] [facility] MED & PEDS [address] [place], [place] [phone] Jd Cordova MD 505 [place] [address] Referral Social History Tobacco Use Types Packs/Day [...] - 05/23/2023 9:53 AM EST Tc from [facility] regarding referral. Location: Dr Lopez's office [address] [facility] [address] Date: 06/15/22 Time: N/A Fax: N/A Specialty: Pediatry (Renewal of Referral ) documented in this encounter Plan of Treatment Upcoming Encounters Date Type Department Care Team (Late st Contact Info) Description 07/01/2025 11:15 AM EST Office Visit [facility] MED & PEDS [address] [place] [address] Jd Cordova MD 505 [place] [address] documented as of this encounter Visit Diagnoses Not on filedocumented in this encounter Care Teams Manager Life Insurance Relationship Specialty Start Date End Date Jd Cordova MD 505 [place] [address] PCP - General Internal Medicine 06/30/19 Toribio Posada, LENA 505 [place] [address] Registered Nurse Family Medicine 01/29/25 02/19/25 Laurence Macedo 02/08/25 02/19/25 documented as of this encounter
--- OUTSIDE RECORDS SUMMARY | 2025-05-06 17:58 | XMS_ITS | Encounter Summary ---
Author Organization [employer] Address [address] [facility] 7[place] [address] Care Team Providers Care Planer Hand Name Role Phone Jd Cordova MD Primary Care Prov ider Toribio Posada RN Unavailable [phone] Laurence Macedo Unavailable Reason for Visit * Reason Onset Date Comments Medication Question 08/08/2023 Encounter Details Date Type Department Care Team ([facility] Contact Info) Description 08/08/2023 Telephone [facility] MED & PEDS [address] [place], [place] [phone] Jd Cordova MD [address] [place], [place] [phone] Medication Question Social History Tobacco Use Types [...] 11:15 AM EST Office Visit [facility] MED & PEDS [address] [place] [address] Jd Cordova MD [address] [place] [address] documented as of this encounter Visit Diagnoses Not on filedocumented in this encounter Care Teams Planer Hand Relationship Specialty Start Date End Date Jd Cordova MD [address] [place] [address] PCP - General Internal Medicine 06/30/19 Toribio Posada RN [address] [place] [address] Registered Nurse Family Medicine 01/29/25 02/19/25 Laurence Macedo 02/08/25 02/19/25 documented as of this encounter
--- OUTSIDE RECORDS SUMMARY | 2025-05-06 17:58 | XMS_ITS | Encounter Summary ---
Author Organization [employer] Address [address] [place] [address] 7[address] [place] [address] Care Team Providers Care Pizza Hut Team Member Name Role Phone Jd Cordova MD Primary Care Prov ider Toribio Posada RN Unavailable [phone] Laurence Macedo Unavailable Encounter Details Date Type Department Care Team (Late Contact Info) Description 06/25/2023 Orders Only [facility] MED & PEDS [address] [place] [address] Jd Cordova MD [address] [place] [address] Type 2 diabetes mellitus without complication, with long-term current use of insulin ([facility]) (Primary Dx) Social History Tobacco Use Types [...] Description 07/01/2025 11:15 AM EST Office Visit [facility] MED & PEDS 505 [place], [place] [phone] Jd Cordova MD [address] [place], [place] [phone] documented as of this encounter Visit Diagnoses Diagnosis Type 2 diabetes mellitus without complication, with long-term current use of insulin (HCC)- Primary documented in this encounter Care Teams [employer] Team Member Relationship Specialty Start Date End Date Jd Cordova MD 505 [place] [address] PCP - General Internal Medicine 06/30/19 Toribio Posada RN 505 [place] [address] Registered Nurse Family Medicine 01/29/25 02/19/25 Laurence Macedo 02/08/25 02/19/25 documented as of this encounter
--- OUTSIDE RECORDS SUMMARY | 2025-05-06 17:58 | XMS_ITS | Encounter Summary ---
Author Organization [employer] Address [address] [facility] 7t [place] [address] Care Team Providers Care Log Carrier Operator Name Role Phone Jd Cordova MD Primary Care Prov ider Toribio Posada RN Unavailable Laurence Macedo Unavailable Reason for Visit * Reason Onset Date Comments Referral 01/13/2024 Encounter Details Date Type Department Care Team ([facility] st Contact Info) Description 01/13/2024 Telephone [facility] MEDICINE [address] [place] [address] Jd Cordova MD 505 [place] [address] Referral Social History Tobacco Use Types Packs/Day [...] - 01/13/2024 12:38 PM EDT Tc from [facility] requesting on Behalf of pt a referral to get Colonoscopy done, pt expressed she'll rather due that then that screening lab work sent on 12/24/23 documented in this encounter Plan of Treatment Upcoming Encounters Date Type Department Care Team (Late st Contact Info) Description 07/01/2025 11:15 AM EST Office Visit [facility] MED [facility] PEDS 505 [place] [address] Jd Cordova MD 505 [place] [address] documented as of this encounter Visit Diagnoses Not on filedocumented in this encounter Care Teams Log Carrier Operator Relationship Specialty Start Date End Date Jd Cordova MD [address] [place] [address] PCP - General Internal Medicine 06/30/19 Toribio Posada, LENA [address] [place] [address] Registered Nurse Family Medicine 01/29/25 02/19/25 Laurence Macedo 02/08/25 02/19/25 documented as of this encounter
--- NOTE | 2025-05-06 19:21 | HO.NURTONUR ---
Care assumed at 1900 for OF room 4. Patient is Alert Oriented x4. pleasant and cooperative. Covid precautions in place. Pt on RA w/ audible exp wheezing and rhonchi bilateral middle lobes. Slight CYR with conversation but maintaining O2sat at 96%. Pt has been using the commode with reports of diarrhea today. VSS. Patient has left forearm #20 patent with good blood return and flush. Patient's belonging list reviewed and accounted for as patient being transferred to Room 478.
[2025-05-06 20:56] LABS: Glucose, Whole Blood 195 mg/dL (60-115)
[2025-05-06] MEDS: Insulin Glargine,Hum.rec.anlog 100 UNIT/ML 10 ML VIAL 65 UNIT SUBCUT (21:30)
[2025-05-06] MEDS: Divalproex Sodium ER 250 MG TAB.ER.24H PO (21:30)
[2025-05-07] VITALS: BP 136/78; PULSE 101; RESP 18; TEMP 36.7; O2SAT 92
[2025-05-07 04:00] VITALS: BP 102/53; PULSE 88; RESP 18; TEMP 36.2; O2SAT 93
[2025-05-07] MEDS: levalbuterol HCL 1.25 MG, Ipratropium Bromide 0.5 MG INHALE (07:33)
[2025-05-07 07:38] VITALS: PULSE 88; RESP 18
[2025-05-07 08:00] VITALS: BP 114/58; PULSE 96; RESP 18; TEMP 36.1; O2SAT 92
[2025-05-07 08:15] LABS: Hematocrit 35.2 % (37.0-47.0); Hemoglobin 11.3 g/dl (12.0-16.0); Mean Corpuscular HGB Conc 32.1 g/dl (31.0-35.0); Mean Corpuscular Hemoglobin 27.5 pg (27.0-33.0); Mean Corpuscular Volume 85.6 fL (80.0-98.0); NRBC Abs Auto 0.000 X10*3/uL (0.0-0.012); NRBC Pct Auto 0.0 /100WBC (0.0-0.2); Platelet Count 229 X10*3/uL (160-400); Red Blood Count 4.11 X10*6/uL (4.20-5.50); White Blood Count 8.5 X10*3/uL (4.8-10.8)
[2025-05-07 08:18] LABS: Anion Gap 12 (12-20); Blood Urea Nitrogen 16 mg/dL (9-16); Calcium 9.1 mg/dL (8.4-10.2); Carbon Dioxide 26 mmol/L (22-29); Chloride 107 mmol/L (96-108); Creatinine Clr Calc Pharmacy 141.2; Estimated Glomerular Filt Rate > 60; Magnesium 2.3 mg/dL (1.6-2.6); Potassium 4.3 mmol/L (3.3-5.1); Sodium 141 mmol/L (135-145)
[2025-05-07] MEDS: Nicotine 7 MG PATCH.TD24 TRANSDERMA (09:21)
[2025-05-07] MEDS: 0.9 % Sodium Chloride Flush 3 ML SYRINGE IVFLUSH (09:21)
[2025-05-07] MEDS: guaiFENesin DM 600/30 1 TAB TAB.ER.12H PO (09:23)
--- NOTE | 2025-05-07 11:25 | P.DS_ITS ---
DS: Providers Provider Date of admission: 05/05/25 15:43 Date of discharge: 05/07/25 Primary care physician: Jd Guevara MD DS: Diagnosis Discharge Diagnosis (1) Schizophrenia: Status: Acute (2) Insulin dependent type 2 diabetes mellitus: Status: Acute (3) Sepsis: Status: Acute (4) COVID-19: Status: Acute DS: Summary Hospital Course Hospital Course: 49-year-old female who presented to the hospital for generalized malaise, tested positive on 05/05 for COVID-19 pneumonia. While in the ED patient became hypotensive suspected secondary to BP medications. Patient was given steroids, neb treatment with improvement of symptoms COVID-19 pneumonia -COVID positive -imaging reviewed with x-ray showing central vascular prominence -patient hypotensive, resolved -S/P IV steroids, will send with medrol dose ryan -Molnupiravir ordered as outpatient -Mucinex and tessalon perles ordered -incentive spirometer -isolation precautions T2 dm Continue with basal insulin, insulin sliding scale ordered Hypertension, chronic We will hold off on blood pressure medications given recent hypotension on admission, continue to monitor and restart as outpatient Schizophrenia MDD -continue home medications On iron pills, will hold of while patient has active infection Time Attestation Discharge Coordination Time (in mins): 35 minutes Quality: Safe Use of Opioids Does Pt have an Active Cancer Diagnosis on the Problem List?: No Quality: Stroke Does the patient have a stroke diagnosis?: No Physical Exam Exam: Exam: General: AxOx3, comfortable Head: AT/NC ENT: Moist mucous membranes Neck: supple CVS; regular rate and rhythm Lungs: clear bilateral breath sounds Abd: Soft non tender, non distended Ext: No edema and no calf tenderness MSK: moving all 4 limbs Skin: No cyanosis or edema Psych: Cooperative with exam Neurology: no focal deficit Vital Signs: Vital Signs: Last Vital Signs Temp 97.0 F 05/07/25 08:00 Pulse 96 05/07/25 08:00 Resp 18 05/07/25 08:00 BP 114/58 L 05/07/25 08:00 Pulse Ox 92 05/07/25 08:00 O2 Del Method Room Air 05/07/25 08:00 BMI result Body Mass Index 45.7 DS: Data Data Completed and Pending Labs on day of discharge: Laboratory Results - last 24 hr 05/06/25 05/07/25 20:51 07:31 WBC 8.5 RBC 4.11 L Hgb 11.3 L Hct 35.2 L MCV 85.6 MCH 27.5 MCHC 32.1 RDW 13.8 Plt Count 229 MPV 9.7 Absolute Nucleated RBC 0.000 Nucleated RBC % (auto) 0.0 Sodium 141 Potassium 4.3 Chloride 107 Carbon Dioxide 26 Anion Gap 12 BUN 16 Creatinine 0.61 Estim Creat Clear Calc 141.2 Estimated GFR > 60 POC Glucose 195 H Random Glucose 169 H Calcium 9.1 D Magnesium 2.3 Preliminary micro results at discharge 05/05/25 14:40 Blood Culture - Preliminary Blood - Venous No growth after 24 hours. 05/05/25 14:40 Blood Culture - Preliminary Blood - Venous No growth after 24 hours. Discharge Plan Discharge Patient Disposition: er [facility] Discharge Diagnosis: COVID-19 pneumonia Referrals: Jd Cordova MD [Primary Care Provider, Medical] - 1 Week Discharge Medications: New benzonatate 100 mg Capsule 100 mg PO TID PRN (Reason: Cough) 5 Days Qty: 15 0RF Mucus DM 30-600 mg Tablet Extended Release 12 Hr 1 tab PO BID 5 Days Qty: 10 0RF molnupiravir 200 mg capsule 800 mg PO Q12H 5 Days Qty: 40 0RF methylprednisolone [Medrol (Ryan)] 4 mg tablets,dose pack 4 mg PO DAILY Qty: 21 0RF Rx Instructions: take medication as stated in packet Continued docusate sodium [Colace] 100 mg Capsule 100 mg PO BID omeprazole 20 mg capsule,delayed release(DR/EC) 1 cap PO DAILY@0630 metoprolol tartrate 25 mg tablet 1 tab PO BID lisinopril 10 mg tablet 10 mg PO DAILY divalproex 500 mg tablet extended release 24 hr 2,500 mg PO BEDTIME perphenazine 4 mg tablet 4 mg PO BID sennosides [senna] 8.6 mg Tablet 8.6 mg PO DAILY Trulicity 3 mg/0.5 mL pen injector 3 mg SUBCUT WE@0900 metformin 500 mg Tablet Extended Release 24 Hr 1,000 mg PO BIDWM insulin asp prt-insulin aspart [Novolog Mix 70-30 U-100 Insuln] 100 unit/mL (70-30) Solution See Protocol SUBCUT TIDAC Protocol: Insulin Correction Scale Less than or equal to 110 ---- Give (units): 0 111 to 150 Give (units): 0 151 to 200 Give (units): 2 201 to 250 Give (units): 4 251 to 300 Give (units): 6 301 to 350 Give (units): 8 Greater than 350 Give (units): 10 Call MD if Blood Glucose > : 350 Rx Instructions: sliding scale ascorbic acid (vitamin C) 500 mg Tablet 500 mg PO BID divalproex 250 mg Tablet Extended Release 24 Hr 250 mg PO BEDTIME 30 Days Qty: 30 0RF ondansetron 4 mg tablet,disintegrating 4 mg PO Q8H PRN (Reason: nausea and vomiting) Qty: 14 0RF clozapine 100 mg Tablet 100 mg PO DAILY Rx Instructions: 125 MG DAILY AND 350 MG AT BEDTIME clozapine 100 mg tablet 300 mg PO BEDTIME Rx Instructions: 125 MG DAILY AND 350 MG AT BEDTIME nystatin 100,000 unit/gram Powder 1 appl TOPICAL BID clozapine 25 mg Tablet 25 mg PO DAILY Rx Instructions: 125 MG DAILY AND 350 MG AT BEDTIME sertraline 50 mg tablet 50 mg PO DAILY clozapine 50 mg Tablet 50 mg PO BEDTIME Rx Instructions: 125 MG DAILY AND 350 MG AT BEDTIME insulin glargine [Lantus Solostar U-100 Insulin] 100 unit/mL (3 mL) insulin pen 65 unit subcut BEDTIME glucagon 3 mg/actuation [place],Non-Aerosol 3 mg INTRANASAL Q15M PRN (Reason: Hypoglycemia) perphenazine 4 mg Tablet 4 mg PO DAILY PRN (Reason: Agitation) nicotine 7 mg/24 hr Patch 24 Hour 1 patch TRANSDERMAL DAILY Discontinued ferrous sulfate 325 mg (65 mg iron) Tablet 325 mg PO DAILY Discharge Orders: Discharge Order (Routine); Ordered 05/07/25 Ordered By: Justus Hauser Activity on Discharge: As tolerated Stand Alone Forms: Patient Portal Discharge page Print Language: Frisian Care Plan Goals: initiate molnupiravir, continue medrol dose ryan Isolation precautions Health Concerns: COVID-19 pneumonia Plan of Treatment: Molnupiravir, medrol dose ryan, tessalon perles, mucinex for COVID-19 pneumonia Hold hypertension medications at this time until blood pressures stabilize Assessment: 49-year-old female who presented to the hospital for generalized malaise, tested positive on 05/05 for COVID-19 pneumonia. While in the ED patient became hypotensive suspected secondary to BP medications. Patient was given steroids, neb treatment with improvement of symptoms Patient Instructions: COVID-19 (Coronavirus Disease 2019) (DC)
[2025-05-07 11:37] LABS: Glucose, Whole Blood 249 mg/dL (60-115)
[2025-05-07 12:00] VITALS: BP 139/67; PULSE 88; RESP 18; TEMP 36.1; O2SAT 93
--- NOTE | 2025-05-07 12:03 | MHC.CM.PN ---
Addendum entered by Jessie Devlin 05/07/25 14:36: NURSING HOME ORDERS SIGNED BY MD, VERIFIED BY NURSING HOME STAFF, AND PATIENT WAS TRANSPORTED HOME BY NURSING HOME STAFF. PATIENTS SISTER CHAGO WAS CALLED AND NOTIFIED OF THE PATIENTS DISCHARGE TODAY. Original Note: EMR REVIEWED AND PER MD ROUNDS, THIS PATIENT HAS BEEN MEDICALLY CLEARED FOR DISCHARGE TO HER NURSING HOME. THIS CM CONTACT [employer] TO MAKE THEM AWARE, THEY STATE THEY HAVE NURSING HOME ORDERS THAT THEY WILL BRING IN TO BE SIGNED BY THE MD. NURSING HOME WILL PROVIDE TRANSPORT FOR PATIENT TODAY.
[2025-05-07 15:29] LABS: Glucose, Whole Blood 173 mg/dL (60-115)
--- OUTSIDE RECORDS SUMMARY | 2025-06-13 19:00 | XMS_ITS | Clinical Summary ---
Author Organization Unknown Care Team Providers Care Enterprise Resource Planning Consultant Name Role Phone SANDEEP FILM PROCESS OPERATOR, NEISHA Unavailable Unavailable CHIKI PAREDES, RYAN Unavailable Unavailable Payers Payer Name Policy Type Policy Number Effective Date Expira tion Date MEDICAID [facility] [id number] Problems Condition Name Condition Details Condition Category [...] 2022-05 00:00: 00 06-18 23:59 :00 No [id number] 70 unit NOON 70 unit NOON (route: subcutaneo us) Med Classific ation: Endocrine docusate sodium 100 mg capsule 2022-05 00:00: 00 06-18 23:59 :00 No [id number] 100 capsule 2 TIMES DAILY 100 capsule 2 TIMES DAILY (route: oral) Med Classific ation: Gastroint estinal Therapy Agents senna 8.6 mg tablet 2022-05 00:00: 00 04-22 23:59 :00 No [id number] 8.6 mg DAILY 8.6 mg DAILY (route: oral) Med Classific ation: Gastroint estinal Therapy Agents lisinopril 10 mg tablet 2022-05 00:00: 00 04-29 23:59 :00 No [id number] 10 mg DAILY 10 mg DAILY (route: oral) Med Classific ation: Cardiovas cular Therapy Agents Vitamin C 500 mg tablet 2022-05 00:00: 00 04-22 23:59 :00 No [id number] 500 mg DAILY 500 mg DAILY (route: oral) Med Classific ation: Electroly te Balance-N utritiona l Products FeroSul 325 mg (65 mg iron) tablet 2022-05 00:00: 00 06-18 23:59 :00 No [id number] 325 mg EVERY AM 325 mg EVERY AM (route: oral) Med Classific ation: Electroly te Balance-N utritiona l Products metformin ER 500 mg tablet,exte nded release 24 hr 2022-05 00:00: 00 06-18 23:59 :00 No [id number] 500 mg 2 TIMES DAILY 500 mg 2 TIMES DAILY (route: oral) Med Classific ation: Endocrine clozapine 100 mg tablet 2022-05 00:00: 00 04-25 23:59 :00 No [id number] 100 mg DAILY 100 mg DAILY (route: oral) Med Classific ation: Central Nervous System Agents clozapine 25 mg tablet 2022-05 00:00: 00 06-18 23:59 :00 No [id number] 25 mg BEDTIME 25 mg BEDTIME (route: oral) Med Classific ation: Central Nervous System Agents divalproex ER 500 mg tablet,exte nded release 24 hr 2022-05 00:00: 00 06-18 23:59 :00 No [id number] 500 mg BEDTIME 500 mg BEDTIME (route: oral) Med Classific ation: Central Nervous System Agents metoprolol tartrate 25 mg tablet 2022-05 00:00: 00 06-18 23:59 :00 No [id number] 25 mg 2 TIMES DAILY 25 mg 2 TIMES DAILY (route: oral) Med Classific ation: Cardiovas cular Therapy Agents omeprazole 20 mg capsule,del ayed release 2022-05 00:00: 00 06-18 23:59 :00 No [id number] 20 capsule EVERY AM 20 capsule EVERY AM (route: oral) Med Classific ation: Gastroint estinal Therapy Agents perphenazin e 4 mg tablet 2022-05 00:00: 00 04-22 23:59 :00 No [id number] 4 mg DAILY 4 mg DAILY (route: oral) Med Classific ation: Central Nervous System Agents sertraline 50 mg tablet 2022-05 00:00: 00 06-18 23:59 :00 No [id number] 50 mg EVERY AM 50 mg EVERY AM (route: oral) Med Classific ation: Central Nervous System Agents Trulicity 1.5 mg/0.5 mL subcutaneou s pen injector 2022-05 00:00: 00 06-18 23:59 :00 No [id number] 1.5 mg WEEKLY 1.5 mg WEEKLY (route: subcutaneo us) Med Classific ation: Endocrine lisinopril 2.5 mg tablet 2022-05 00:00: 00 06-18 23:59 :00 No [id number] 2.5 mg EVERY AM 2.5 mg EVERY AM (route: oral) Med Classific ation: Cardiovas cular Therapy Agents Lantus Solostar U-100 Insulin 100 unit/mL (3 mL) subcutaneou s pen 06-20 00:00: 00 12-15 23:59 :00 No [id number] 70 unit DAILY 70 unit DAILY (route: subcutaneo us) Med Classific ation: Endocrine Trulicity 1.5 mg/0.5 mL subcutaneou s pen injector - 00:00: 00 02-10 23:59 :00 No [id number] 1.5 mg WEEKLY 1.5 mg WEEKLY (route: subcutaneo us) Med Classific ation: Endocrine insulin lispro (U-100) 100 unit/mL subcutaneou s pen 12-17 00:00: 00 Yes [id number] Per instruc tions 3 TIMES DAILY Per instructio ns 3 TIMES DAILY (route: subcutaneo us) Med Classific ation: Endocrine Lantus Solostar U-100 Insulin 100 unit/mL (3 mL) subcutaneou s pen 12-17 00:00: 00 02-10 23:59 :00 No [id number] 65 unit BEDTIME 65 unit BEDTIME (route: [facility]) Med Classific ation: Endocrine Lantus Solostar U-100 Insulin 100 unit/mL (3 mL) subcutaneou s pen 02-10 00:00: 00 Yes [id number] 65 unit BEDTIME 65 unit BEDTIME (route: [facility]) Med Classific ation: Endocrine Trulicity 1.5 mg/0.5 mL subcutaneou s pen injector 02-10 00:00: 00 Yes [id number] 1.5 mg WEEKLY 1.5 mg WEEKLY (route: [facility]) Med Classific ation: Endocrine Vital Signs Vital Name Observation Time Observation Value Commen ts Temperature 2025-05-04 12:20:00.000 97.5 [degF] Temperature 2025-05-03 09:55:00.000 97.5 [degF] Temperature 2025-05-02 09:24:00.000 97.5 [degF] Temperature 2025-05-01 09:20:00.000 98 [degF] Temperature 2025-04-30 12:48:00.000 97.5 [degF] Temperature 2025-04-29 11:51:00.000 97.5 [degF] Temperature 2025-04-28 11:50:00.000 98.1 [degF] Temperature 2025-04-27 12:48:00.000 97.6 [degF] Temperature 2025-04-26 13:23:00.000 97.5 [degF] Temperature 2025-04-25 09:50:00.000 97 [degF] Temperature 2025-04-24 09:56:00.000 97.5 [degF] Temperature 2025-04-23 12:49:00.000 97.5 [degF] Temperature 2025-04-22 12:32:00.000 97.8 [degF] Temperature 2025-04-21 13:16:00.000 97.5 [degF] Temperature 2025-04-20 12:39:00.000 97.5 [degF] Temperature 2025-04-19 10:11:00.000 97.4 [degF] Temperature 2025-04-18 09:43:00.000 97.5 [degF] Temperature 2025-04-17 09:49:00.000 97.9 [degF] Temperature 2025-04-16 12:46:00.000 97.5 [degF] Plan of Treatment Planned Activity Planned Date Details Comments Future Scheduled Test SKILLED NU RSE TO EVALUATE PATIENT, IDENTIFY PRIMARY AND CO-MORBID CONDITIONS CODED PER CODING GUIDELINES, AND DEVELOP PATIENT SPECIFIC PLAN OF CARE THAT INCLUDES PATIENT GOAL FOR HOME HEALTH. PLAN OF CARE TO INCLUDE 3 PRN VISIT(S) FOR OASIS DATA COLLECTION/COMPREHENSIVE ASSESSMENT AT TIMEPOINTS PER FEDERAL REGULATIONS. THIS INCLUDES VISITS FOR ELSA, RECERT, SCIC, AND/OR DC. [code = SKILLED NURSE TO EVALUATE PATIENT, IDENTIFY PRIMARY AND CO-MORBID CONDITIONS CODED PER CODING GUIDELINES, AND DEVELOP PATIENT SPECIFIC PLAN OF CARE THAT INCLUDES PATIENT GOAL FOR HOME HEALTH. PLAN OF CARE TO INCLUDE 3 PRN VISIT(S) FOR OASIS DATA COLLECTION/COMPREHENSIVE ASSESSMENT AT TIMEPOINTS PER FEDERAL REGULATIONS. THIS INCLUDES VISITS FOR ELSA, RECERT, SCIC, AND/OR DC.] Future Scheduled Test SKILLED NU RSE TO [...] USE.] Future Scheduled Test SKILLED NU RSE WILL MAINTAIN SITUATIONAL AWARENESS FOR SAFETY AND WILL NOTIFY CLINICAL PRINTING MACHINIST AND PHYSICIAN/PROVIDER WITH ANY CHANGE IN CONDITION. [code = SKILLED NURSE WILL MAINTAIN SITUATIONAL AWARENESS FOR SAFETY AND WILL NOTIFY CLINICAL PRINTING MACHINIST AND PHYSICIAN/PROVIDER WITH ANY CHANGE IN CONDITION.] Future Scheduled Test SKILLED NU RSE TO [...] Future Scheduled Test SKILLED NU RSE FOR MEDICATION ADMINISTRATION PER MEDICATION LIST [code = SKILLED NURSE FOR MEDICATION ADMINISTRATION PER MEDICATION LIST] Future Scheduled Test SKILLED NU RSE FOR ADMINISTRATION AND TEACHING OF PRESCRIBED INJECTION THERAPY FOR INSULIN [code = SKILLED NURSE FOR ADMINISTRATION AND TEACHING OF PRESCRIBED INJECTION THERAPY FOR INSULIN] Future Scheduled Test SKILLED NU RSE FOR O/A OF ALTERED THOUGHT PROCESS AND/OR DISRUPTION IN COGNITIVE OPERATIONS AND ACTIVITIES [code = SKILLED NURSE FOR O/A OF ALTERED THOUGHT PROCESS AND/OR DISRUPTION IN COGNITIVE OPERATIONS AND ACTIVITIES] Future Scheduled Test SKILLED NU RSE TO ASSESS PATIENT S PSYCHOSOCIAL STATUS TO IDENTIFY POTENTIAL ISSUES THAT MAY COMPLICATE THE PROVISION OF THE PLAN OF CARE INCLUDING THE PATIENT S ABILITY TO ACCESS COMMUNITY RESOURCES AND PSYCHOSOCIAL SUPPORT SERVICES. [code = SKILLED NURSE TO ASSESS PATIENT S PSYCHOSOCIAL STATUS TO IDENTIFY POTENTIAL ISSUES THAT MAY COMPLICATE THE PROVISION OF THE PLAN OF CARE INCLUDING THE PATIENT S ABILITY TO ACCESS COMMUNITY RESOURCES AND PSYCHOSOCIAL SUPPORT SERVICES.] Future Scheduled Test SKILLED NU RSE FOR O/A OF CLIENT'S SOCIAL ISOLATION AND PROVIDE ASSISTANCE TO CLIENT IN DEVELOPMENT OF PLANNED ACTIVITIES [code = SKILLED NURSE FOR O/A OF CLIENT'S SOCIAL ISOLATION AND PROVIDE ASSISTANCE TO CLIENT IN DEVELOPMENT OF PLANNED ACTIVITIES] Future Scheduled Test SKILLED NU RSE FOR O/A AND TEACHING OF ENDOCRINE SYSTEM TO IDENTIFY CHANGES ASSOCIATED WITH EXACERBATION OF HYPOGLYCEMIA FOR EARLY INTERVENTION OF COMPLICATIONS. [code = SKILLED NURSE FOR O/A AND TEACHING OF ENDOCRINE SYSTEM TO IDENTIFY CHANGES ASSOCIATED WITH EXACERBATION OF HYPOGLYCEMIA FOR EARLY INTERVENTION OF COMPLICATIONS.] Future Scheduled Test SKILLED NU RSE FOR O/A AND TEACHING OF DIABETIC MANAGEMENT INCLUDING BLOOD SUGAR MONITORING/USE OF GLUCOMETER, DIABETIC DIET, LOWER EXTREMITY SKIN INSPECTION, PROPER SKIN/FOOT CARE, AND SIGNS AND SYMPTOMS HYPO/HYPERGLYCEMIA TO REPORT. [code = SKILLED NURSE FOR O/A AND TEACHING OF DIABETIC MANAGEMENT INCLUDING BLOOD SUGAR MONITORING/USE OF GLUCOMETER, DIABETIC DIET, LOWER EXTREMITY SKIN INSPECTION, PROPER SKIN/FOOT CARE, AND SIGNS AND SYMPTOMS HYPO/HYPERGLYCEMIA TO REPORT.] Future Scheduled Test SKILLED NU RSE TO OBTAIN BLOOD SUGAR PRN FOR SIGNS AND SYMPTOMS OF HYPO/HYPERGLYCEMIA. IF OBTAINED BY PATIENT/CAREGIVER PRIOR TO VISIT AND PATIENT IS NOT SYMPTOMATIC, SKILLED NURSE TO RECORD READING FROM PATIENT LOG. [code = SKILLED NURSE TO OBTAIN BLOOD SUGAR PRN FOR SIGNS AND SYMPTOMS OF HYPO/HYPERGLYCEMIA. IF OBTAINED BY PATIENT/CAREGIVER PRIOR TO VISIT AND PATIENT IS NOT SYMPTOMATIC, SKILLED NURSE TO RECORD READING FROM PATIENT LOG.] Goal 2024-08-14 Patient Goal - TAKING MY INS ULIN Goal 2024-10-13 Patient Goal - TAKING MY INS ULIN Goal 2024 Patient Goal - TAKING MY INS ULIN Goal 2025-02-10 Patient Goal - TAKING MY INS ULIN Goal 2025-04-12 Patient Goal - TAKING MY INS ULIN Goal Patient Goal - TAKING MY INS ULIN Goal Provider Goal - A PLAN OF CARE WILL BE ESTABLISHED THAT MEETS PATIENT'S LONG TERM NEEDS AND INCLUDES PATIENT GOAL FOR HOME HEALTH. Goal Provider Goal - PATIENT/CAREGIVER WILL VERBALIZE/DEMONSTRATE EFFECTIVE HOME SAFETY AND FALL PREVENTION STRATEGIES THROUGHOUT CERTIFICATION PERIOD. Goal Provider Goal - PATIENT WILL HAVE SUPPORT MEASURES ESTABLISHED TO PREVENT HOSPITALIZATION AND ED USE AND PATIENT/CAREGIVER WILL VERBALIZE/DEMONSTRATE METHODS TO REDUCE AVOIDABLE HOSPITALIZATION AND ED USE BY END OF EPISODE. Goal Provider Goal - PATIENT WILL REMAIN SAFE IN THE COMMUNITY AND WILL BE FREE OF DANGER TO SELF AND OTHERS THROUGHOUT THE CERTIFICATION PERIOD. Goal Provider Goal - PATIENT/CAREGIVER WILL VERBALIZE UNDERSTANDING OF EDUCATION PROVIDED ON MEDICATIONS BY THE END OF THE CERTIFICATION PERIOD. Goal Provider Goal - PATIENT WILL COMPLY WITH MEDICATION WHEN NURSE ADMINISTERS THROUGHOUT CERTIFICATION PERIOD. Goal Provider Goal - PATIENT WILL RECEIVE INSULIN ORDERED. PATIENT/CAREGIVER WILL VERBALIZE/DEMONSTRATE KNOWLEDGE OF INJECTION THERAPY BY THE END OF THE CERTIFICATION PERIOD. Goal Provider Goal - PATIENT WILL BE ABLE TO PERFORM DAILY FUNCTIONS AND HAVE OPTIMAL IMPROVEMENT IN THOUGHT PROCESS THROUGHOUT CERTIFICATION PERIOD. Goal Provider Goal - PSYCHOSOCIAL NEEDS WILL BE IDENTIFIED AND PLAN IMPLEMENTED TO MINIMIZE RISK THROUGHOUT CERTIFICATION PERIOD. Goal Provider Goal - PATIENT WILL DEMONSTRATE AN INCREASED INTEREST IN SOCIALIZATION AND ACTIVITIES BY THE END OF THE CERTIFICATION PERIOD. Goal Provider Goal - PATIENT/CAREGIVER WILL VERBALIZE SIGNS AND SYMPTOMS OF EXACERBATION OF HYPOGLYCEMIA TO REPORT TO NURSE/PHYSICIAN THROUGHOUT THE CERTIFICATION PERIOD. Goal Provider Goal - PATIENT/CAREGIVER WILL VERBALIZE/DEMONSTRATE KNOWLEDGE OF DIABETIC MANAGEMENT. CHANGES IN DIABETIC STATUS WILL BE IDENTIFIED AND REPORTED TO PHYSICIAN FOR PROMPT INTERVENTION THROUGHOUT THE CERTIFICATION PERIOD. Goal Provider Goal - BLOOD SUGAR READING WILL BE OBTAINED ORDERED THROUGHOUT CERTIFICATION PERIOD. Encounters Start Date/Time End Date/Time Encounter Type Admission Type Attending Clinicians Care Facility Care Department Encounter ID Discharge Date Discharge Status Discharge Condition Discharge Reason Percent Goals Met 2025-04-16 00:00:00 2025-06-14 00:00:00 Outpatient RECERTIFIC RYAN SHERIDAN [facility] [id number] 40.00
--- OUTSIDE RECORDS SUMMARY | 2025-06-13 19:00 | XMS_ITS | Clinical Summary ---
Author Organization Unknown Care Team Providers Care Er Nurse Name Role Phone SANDEEP PET FEEDER, NEISHA Unavailable Unavailable CHIKI PAREDES, RYAN Unavailable Unavailable Payers Payer Name Policy Type Policy Number Effective Date Expira tion Date MEDICAID [facility] [id number] Problems Condition Name Condition Details Condition Category [...] 2022-05 00:00: 00 06-18 23:59 :00 No [id number] 70 unit NOON 70 unit NOON (route: subcutaneo us) Med Classific ation: Endocrine docusate sodium 100 mg capsule 2022-05 00:00: 00 06-18 23:59 :00 No [id number] 100 capsule 2 TIMES DAILY 100 capsule 2 TIMES DAILY (route: oral) Med Classific ation: Gastroint estinal Therapy Agents senna 8.6 mg tablet 2022-05 00:00: 00 04-22 23:59 :00 No [id number] 8.6 mg DAILY 8.6 mg DAILY (route: oral) Med Classific ation: Gastroint estinal Therapy Agents lisinopril 10 mg tablet 2022-05 00:00: 00 04-29 23:59 :00 No [id number] 10 mg DAILY 10 mg DAILY (route: oral) Med Classific ation: Cardiovas cular Therapy Agents Vitamin C 500 mg tablet 2022-05 00:00: 00 04-22 23:59 :00 No [id number] 500 mg DAILY 500 mg DAILY (route: oral) Med Classific ation: Electroly te Balance-N utritiona l Products FeroSul 325 mg (65 mg iron) tablet 2022-05 00:00: 00 06-18 23:59 :00 No [id number] 325 mg EVERY AM 325 mg EVERY AM (route: oral) Med Classific ation: Electroly te Balance-N utritiona l Products metformin ER 500 mg tablet,exte nded release 24 hr 2022-05 00:00: 00 06-18 23:59 :00 No [id number] 500 mg 2 TIMES DAILY 500 mg 2 TIMES DAILY (route: oral) Med Classific ation: Endocrine clozapine 100 mg tablet 2022-05 00:00: 00 04-25 23:59 :00 No [id number] 100 mg DAILY 100 mg DAILY (route: oral) Med Classific ation: Central Nervous System Agents clozapine 25 mg tablet 2022-05 00:00: 00 06-18 23:59 :00 No [id number] 25 mg BEDTIME 25 mg BEDTIME (route: oral) Med Classific ation: Central Nervous System Agents divalproex ER 500 mg tablet,exte nded release 24 hr 2022-05 00:00: 00 06-18 23:59 :00 No [id number] 500 mg BEDTIME 500 mg BEDTIME (route: oral) Med Classific ation: Central Nervous System Agents metoprolol tartrate 25 mg tablet 2022-05 00:00: 00 06-18 23:59 :00 No [id number] 25 mg 2 TIMES DAILY 25 mg 2 TIMES DAILY (route: oral) Med Classific ation: Cardiovas cular Therapy Agents omeprazole 20 mg capsule,del ayed release 2022-05 00:00: 00 06-18 23:59 :00 No [id number] 20 capsule EVERY AM 20 capsule EVERY AM (route: oral) Med Classific ation: Gastroint estinal Therapy Agents perphenazin e 4 mg tablet 2022-05 00:00: 00 04-22 23:59 :00 No [id number] 4 mg DAILY 4 mg DAILY (route: oral) Med Classific ation: Central Nervous System Agents sertraline 50 mg tablet 2022-05 00:00: 00 06-18 23:59 :00 No [id number] 50 mg EVERY AM 50 mg EVERY AM (route: oral) Med Classific ation: Central Nervous System Agents Trulicity 1.5 mg/0.5 mL subcutaneou s pen injector 2022-05 00:00: 00 06-18 23:59 :00 No [id number] 1.5 mg WEEKLY 1.5 mg WEEKLY (route: subcutaneo us) Med Classific ation: Endocrine lisinopril 2.5 mg tablet 2022-05 00:00: 00 06-18 23:59 :00 No [id number] 2.5 mg EVERY AM 2.5 mg EVERY AM (route: oral) Med Classific ation: Cardiovas cular Therapy Agents Lantus Solostar U-100 Insulin 100 unit/mL (3 mL) subcutaneou s pen 06-20 00:00: 00 12-15 23:59 :00 No [id number] 70 unit DAILY 70 unit DAILY (route: subcutaneo us) Med Classific ation: Endocrine Trulicity 1.5 mg/0.5 mL subcutaneou s pen injector - 00:00: 00 02-10 23:59 :00 No [id number] 1.5 mg WEEKLY 1.5 mg WEEKLY (route: subcutaneo us) Med Classific ation: Endocrine insulin lispro (U-100) 100 unit/mL subcutaneou s pen 12-17 00:00: 00 Yes [id number] Per instruc tions 3 TIMES DAILY Per instructio ns 3 TIMES DAILY (route: subcutaneo us) Med Classific ation: Endocrine Lantus Solostar U-100 Insulin 100 unit/mL (3 mL) subcutaneou s pen 12-17 00:00: 00 02-10 23:59 :00 No [id number] 65 unit BEDTIME 65 unit BEDTIME (route: [facility]) Med Classific ation: Endocrine Lantus Solostar U-100 Insulin 100 unit/mL (3 mL) subcutaneou s pen 02-10 00:00: 00 Yes [id number] 65 unit BEDTIME 65 unit BEDTIME (route: [facility]) Med Classific ation: Endocrine Trulicity 1.5 mg/0.5 mL subcutaneou s pen injector 02-10 00:00: 00 Yes [id number] 1.5 mg WEEKLY 1.5 mg WEEKLY (route: [facility]) Med Classific ation: Endocrine Vital Signs Vital [...] AWARENESS FOR SAFETY AND WILL NOTIFY CLINICAL CANS VACUUM TESTER AND PHYSICIAN/PROVIDER WITH ANY CHANGE IN CONDITION. [code = SKILLED NURSE WILL MAINTAIN SITUATIONAL AWARENESS FOR SAFETY AND WILL NOTIFY CLINICAL CANS VACUUM TESTER AND PHYSICIAN/PROVIDER WITH ANY CHANGE IN CONDITION.] [...] CARE WILL BE ESTABLISHED THAT MEETS PATIENT'S RESIDENTIAL NEEDS AND INCLUDES PATIENT GOAL FOR HOME [...] 00:00:00 2025-06-14 00:00:00 Outpatient RECERTIFIC RYAN SHERIDAN [facility] [id number] 40.00
== END 2025-05-07 14:31 | DRG 720 ==
LOC: HO.ED 14:38 → HO.EDOVER 16:10 → HO.IMC 05-06 19:12
PROVIDERS: Physician Assistant; Admitting Provider Student in an Organized Health Care Education/Training Program; Emergency Provider Emergency Medicine Emergency Medical Services; PCP Internal Medicine; Visit Provider Student in an Organized Health Care Education/Training Program
DX: A41.89 Other specified sepsis (principal); J12.82 Pneumonia due to coronavirus disease 2019; U07.1 COVID-19; F20.0 Paranoid schizophrenia; I95.9 Hypotension, unspecified; I10 Essential (primary) hypertension; E11.9 Type 2 diabetes mellitus without complications; F32.9 Major depressive disorder, single episode, unspecified; E86.0 Dehydration; F17.210 Nicotine dependence, cigarettes, uncomplicated; Z71.6 Tobacco abuse counseling; Z79.4 Long term (current) use of insulin; Z79.84 Long term (current) use of oral hypoglycemic drugs; Z79.85 Long-term (current) use of injectable non-insulin antidiabetic drugs; Z79.899 Other long term (current) drug therapy
CPT/HCPCS: 36415; 71045; 80048; 80076; 82947; 83605; 83735; 83880; 84443; 85025; 85027; 85048; 85379; 87040; 87637; 93005; 94640; 99285; J1650; J2405; J2919; J7120

== ENCOUNTER → 2025-05-05 08:25 | Outpatient (BNV) | payer MEDICAID, SELFPAY | PROVIDERS: Emergency Provider Emergency Medicine Emergency Medical Services; PCP Internal Medicine; Visit Provider Radiology Diagnostic Ultrasound | DX: R06.02 Shortness of breath (principal) | CPT/HCPCS: 71045 ==

== ENCOUNTER → 2025-05-05 15:09 | Outpatient (BNV) | payer MEDICAID, SELFPAY | PROVIDERS: Admitting Provider Student in an Organized Health Care Education/Training Program; Emergency Provider Emergency Medicine Emergency Medical Services; PCP Internal Medicine; Visit Provider Internal Medicine Cardiovascular Disease | DX: R53.1 Weakness (principal) | CPT/HCPCS: 93010 ==